=== PATIENT | female | born 1940 | race Caucasian/White ===

== ENCOUNTER → 2018-08-03 09:06 | Outpatient (CLI) | payer MEDICARE, SELFPAY ==
--- NOTE | 2018-08-03 09:14 | RAD_ITS ---
STUDY: X-RAY - LEFT SHOULDER REASON FOR EXAM: Female, 78 years old. Pain. TECHNIQUE: 2 view(s) of the shoulder. COMPARISON: None. FINDINGS: Normal glenohumeral articulation. Normal acromioclavicular joint. Normal acromion. There is demineralization of the humerus and visualized osseous structures. The soft tissue structures are unremarkable. Normal visualized pulmonary apex. RAD/Shoulder min 2 Views IMPRESSION: No acute fracture or dislocation. Electronically Signed: Moy Obregon DO at 19:17 EST Tel [phone], Service support ,
--- NOTE | 2018-08-03 09:15 | RAD_ITS ---
STUDY: X-RAY - RIGHT SHOULDER REASON FOR EXAM: Female, 78 years old. Pain. TECHNIQUE: 2 view(s) of the shoulder. COMPARISON: None. FINDINGS: Normal glenohumeral articulation. Normal acromioclavicular joint. Normal acromion. There is no acute fracture, dislocation or destructive osseous pathology. There is demineralization of the humerus and visualized osseous structures. The soft tissue structures are unremarkable. Normal visualized pulmonary apex. RAD/Shoulder min 2 Views IMPRESSION: No acute abnormality of the right shoulder. Electronically Signed: Moy Obregon DO at 19:16 EST Tel [phone], Service support ,
== END ==
PROVIDERS: Family Provider Family Medicine; PCP Family Medicine; Referring Provider Anesthesiology Pain Medicine; Visit Provider Anesthesiology Pain Medicine
DX: M25.511 Pain in right shoulder (principal); M25.512 Pain in left shoulder
CPT/HCPCS: 73030

== ENCOUNTER → 2022-08-26 | Outpatient (CLI) | payer MEDICARE, SELFPAY ==
--- NOTE | 2022-08-26 07:37 | CT_ITS ---
STUDY: CT CHEST, ABDOMEN T PELVIS WITH CONTRAST REASON FOR EXAM: Female, 82 years old. LYMPHADENOPATHY; IV CONTRAST ONLY. Enlarged right subclavian lymph nodes. RADIATION DOSAGE (If Supplied By Facility): CTDIvol = ( 15.13 ) mGy, DLP = ( 977.82 ) mGycm TECHNIQUE: Transaxial imaging was performed following intravenous administration of IV 100mL Isovue-300. Multiplanar coronal and sagittal images were reformatted. Individualized dose optimization techniques were used for this CT. COMPARISON: No relevant priors. FINDINGS: CHEST There are multiple enlarged bilateral axillary lymph nodes. There is also evidence of a subacute clavicular lymphadenopathy more prominent on the right side. Mild increased markings are seen at the lung bases show some atelectasis and/or scarring. There is no demonstrated pleural abnormality. There are calcifications of the coronary arteries. Normal mediastinum. Normal hilar regions. Normal unenhanced pulmonary arteries. There is atherosclerotic calcification of the aortic arch with tortuosity and elongation of the aortic arch and descending thoracic aorta. There are multi-level degenerative changes of the thoracic spine. There is no demonstrated abnormality of the visualized upper abdomen. ABDOMEN The visualized lung bases are unremarkable. The visualized portions of the heart are within normal limits. Normal liver. Normal gallbladder and extrahepatic biliary system. Normal spleen. Normal pancreas. Normal bilateral adrenal glands. Normal right kidney. Normal left kidney. Normal visualized stomach. Normal small intestine. There are scattered colonic diverticula consistent with diverticulosis. The patient is status post appendectomy. There is diffuse atherosclerotic calcification of the abdominal aorta, without a demonstrated aneurysm. Normal inferior vena cava. There is retroperitoneal lymphadenopathy with enlarged nodes greater than 10-15mm in the short axis. Normal abdominal wall. This space narrowing in the subchondral sclerosis at the L4-L5 level minimal anterior listhesis of L4 on L5. PELVIS Normal urinary bladder. The patient is status post hysterectomy. There is no pelvic fluid. There is no pelvic lymphadenopathy or mass lesion. There is diffuse atherosclerotic calcification of the pelvic arteries. CT/CT Chest, Abd, Pel w/Contrast IMPRESSION: Enlarged bilateral subclavicular and axillary lymph nodes. Enlarged retroperitoneal lymphadenopathy. Electronically Signed: Michael Tuttle MD at 14:44 EDT ,
== END | disposition home or self-care (01) ==
PROVIDERS: PCP Family Medicine; Visit Provider Internal Medicine Hematology & Oncology
DX: R59.9 Enlarged lymph nodes, unspecified (principal)
CPT/HCPCS: 71260; 74177; Q9967

== ENCOUNTER → 2023-02-26 | Outpatient (CLI) | payer MEDICARE, SELFPAY ==
--- NOTE | 2023-02-26 12:15 | EKG12_ITS ---
Test Reason : PRE OP Blood Pressure : / mmHG Vent. Rate : 070 BPM Atrial Rate : 061 BPM P-R Int : 000 ms QRS Dur : 074 ms QT Int : 374 ms P-R-T Axes : 000 028 056 degrees QTc Int : 403 ms Normal sinus rhythm Abnormal ECG Confirmed by KATERIN RAMOS, UZIEL ([id number]), assistant editor PEDRO WAGNER ([id number]) on 03/01/2023 1:54:34 PM Referred By: Hortencia Mclaughlin Confirmed By:UZIEL CONKLIN MD
== END | disposition home or self-care (01) ==
PROVIDERS: PCP Family Medicine; Referring Provider Internal Medicine Hematology & Oncology; Visit Provider Internal Medicine Hematology & Oncology
DX: C91.10 Chronic lymphocytic leukemia of B-cell type not having achieved remission (principal); D64.9 Anemia, unspecified; Z79.899 Other long term (current) drug therapy
CPT/HCPCS: 93005

== ENCOUNTER 2023-10-05 08:16 | Emergency (ER) | payer MEDICARE, SELFPAY ==
[2023-10-05 08:17] VITALS: BP 179/128; PULSE 83; RESP 16; TEMP 36.7; O2SAT 100; BMI 23.8
--- NOTE | 2023-10-05 08:39 | ED.VIS.BACK ---
HPI History of Present Illness Chief Complaint: Back [facility] Medical History Anemia CLL (chronic lymphocytic leukemia) Encounter for education Hematuria High blood pressure Hyperlipidemia Hypothyroidism Low back pain with right-sided sciatica Mitral valve prolapse Muscle cramping Need for hepatitis C screening test Osteoporosis Psoriasis Skin lesion of face Skin lesion of neck Stress incontinence Supraclavicular lymphadenopathy Supraclavicular mass URI with cough and congestion Urinary frequency Varicose veins of legs Vertigo Home Medications ascorbic acid (vitamin C) 100 mg tablet 100 mg PO DAILY 08/14/22 [History Last Taken Unknown] aspirin 81 mg tablet,delayed release 81 mg PO DAILY 08/14/22 [History Last Taken Unknown] calcium carbonate 600 mg PO DAILY 08/14/22 [History Last Taken Unknown] cholecalciferol (vitamin D3) 10 mcg (400 unit) capsule 10 mcg PO DAILY 08/14/22 [History Last Taken Unknown] chromium picolinate 200 mcg tablet 200 mcg PO DAILY 08/14/22 [History Last Taken Unknown] losartan 50 mg tablet 50 mg PO BID 08/14/22 [History Last Taken Unknown] lutein 20 mg capsule 20 mg PO DAILY 08/14/22 [History Last Taken Unknown] magnesium carbonate 08/18/22 [History Last Taken Unknown] polyethylene glycol 3350 17 gram/dose oral powder (Miralax) 4 g PO DAILY 02/23/23 [History Last Taken Unknown] psyllium husk 3.4 gram/5.4 gram oral powder (Metamucil) 1 tbsp PO DAILY 02/23/23 [History Last Taken Unknown] cholecalciferol (vit D3) 1,000 unit-vitamin K2 (MK4) 100 mcg tablet 1 tab PO DAILY 03/01/23 [History Last Taken Unknown] mecobalamin (vitamin B12) 1,000 mcg lozenges 1,000 mcg PO Q OTHER DAY 03/01/23 [History Last Taken Unknown] omega 2-ejm-bpj-fish oil 300 mg-1,000 mg capsule (Fish Oil) 1 cap PO DAILY 03/01/23 [History Last Taken Unknown] vitamin E succinate 268 mg (400 unit) tablet 268 mg PO Q OTHER DAY 03/01/23 [History Last Taken Unknown] zinc amino acid chelate 50 mg tablet 50 mg PO DAILY 03/01/23 [History Last Taken Unknown] pantoprazole 40 mg tablet,delayed release 80 mg PO DAILY 05/10/23 [History Last Taken Unknown] levothyroxine 88 mcg capsule 88 mcg PO DAILY 06/01/23 [History Last Taken Unknown] Disability Placard #1 ea 09/07/23 [Rx Last Taken Unknown] oxycodone 5 mg capsule 5 mg PO Q6H PRN pain 3 days #12 caps 10/05/23 [Rx Last Taken Unknown] Allergy/AdvReac Type Severity Reaction Status Date / Time No Known Allergies Allergy Verified 09/07/23 14:29 Family History Brother CAD (coronary artery disease) Cancer Hyperlipemia Mother Cancer Leukemia Sister Cancer Sarcoma Surgical History H/O umbilical hernia repair History of tonsillectomy S/P abdominal hysterectomy S/P appendectomy Social History Smoking Status: Never smoker alcohol intake: never substance use type: does not use EXAM Physical Exam Const Vital Signs: 10/05/23 08:17 10/05/23 09:45 Temperature 98.1 F Temperature Source Temporal Pulse Rate 83 80 Respiratory Rate 16 16 Blood Pressure 179/128 H 170/73 H Blood Pressure Mean 145 105 Pulse Ox 100 100 Oxygen Delivery Method Room Air Room Air [facility] MDM MDM Narrative Medical decision making narrative: HISTORY OF PRESENT ILLNESS: 83-year-old female presents with back pain. This started 1 month ago after chiropractor adjustment. States she is a known fracture. This pain has gotten worse. Notes she initially was prescribed tramadol but cannot tolerate this secondary nausea vomiting. She is then prescribed hydrocodone medicine and ran out. Note she has a appointment in 2 days with a spine surgeon as well as an MRI scheduled. Patient denies any saddle anesthesia, urinary retention, bowel or bladder incontinence, lower extremity weakness, fever or IV drug use, no recent spinal manipulation or surgery, no recent urinary catheterization. REVIEW OF SYSTEMS: Pertinent positives: Back pain, constipation Pertinent negatives: Followed by incontinence, focal weakness PHYSICAL EXAM: Nursing triage notes reviewed, Vital signs reviewed Constitutional: please see mdm HENT: MMM Eyes: Pupils equal round and reactive to light, Extraocular muscles intact Neck: No stridor, no JVD, full neck ROM Lungs: Clear to auscultation, No wheezing or rales. No increased work of breathing, no conversational dyspnea, no accessory muscle use, no nasal flaring. No respiratory distress noted Heart: Regular rate and rhythm, No murmurs, No rubs and No gallops, 2+ distal pulses (radial, femoral, posterior tibial) in all extremities Abdomen: Soft, there is no tenderness, rigidity, rebound or guarding, no obvious peritoneal signs, no palpable pulsatile abdominal masses, no auscultated abdominal bruit : No CVAT Extremities: No edema Neuro: Intact sensation L1-S1 dermatomal distributions. Intact 5/5 strength in hip flexion (T12-L3). Knee extension (L2-L4). Ankle dorsiflexion (L4-L5). Ankle plantar flexion (S1). Great toe extension (L5). 2+ patellar and Achilles DTRs. Skin: No rash or lesions noted MEDICAL DECISION MAKING: Chief Complaint: Back pain External records reviewed: No recent advanced imaging of the thoracic and lumbar spine and [facility] records however in clinic think I found a CT scan of the abdomen pelvis as well as lumbar spine from 10/04/2023 which showed the following FINDINGS: There is some compression deformity of the superior L3 endplate, a stable finding since the previous exam. There is interval but age indeterminate mild superior L4 endplate compression. Degenerative changes are noted in the spine. No definite acute osseous abnormality seen. Small areas of scarring are visible at the lung bases. A subcentimeter cyst is noted in the spleen. The liver and spleen are otherwise unremarkable. The adrenal glands and pancreas appear normal. No focal kidney abnormality is evident. No adenopathy, free air or free fluid is evident. The urinary bladder is unremarkable. No GI tract abnormality seen. No additional contributory abnormality. IMPRESSION: No acute abnormality identified. Interval but age-indeterminate loss of height at the superior L4 endplate. Factors affecting care: Back pain, hyperlipidemia, CLL, lumbar spine fracture Social determinants of health: Elderly History obtained from others: EMS Consults: none at this time MDM Narrative: Patient was hemodynamically stable, afebrile and nontoxic-appearing. There is TTP over the lower lumbar spine. There are no focal neurologic deficits including numbness weakness or loss sensation or strength in the lower extremities. I considered the following differential diagnosis: Lumbar radiculopathy, fracture dislocation, space-occupying lesion of the spine (epidural abscess, conus medullaris) Imaging reviewed from yesterday. No indication to repeat imaging today Gave symptomatic treatment in the form of oral Percocet, IM Decadron, ibuprofen and lidocaine patch Gave instructions to take a bowel regimen to improve opiate related constipation and gave Percocet prescription. She has close follow-up with spine surgery in 2 days as well as an MRI scheduled in 2 days. I do not believe the patient has an acute spinal emergency at this time she is ambulatory she has no focal neurologic findings and is appropriate for discharge home. The patient and/or family, caregivers express understanding. The patient and/or family, caregivers agrees with the plan. Shared decision making: I will have a discussion with the patient and or visitors regarding risk/benefits of further testing or admission. They will be made aware of of the risk/benefits inherent in this decision they will be given the opportunity to voice understanding. Total critical care time today provided was at least 0 minutes. This excludes separately billable procedures. Critical care time (if documented) is secondary to the patient having high probability of clinically significant/life threatening deterioration in the patient's condition which required my urgent intervention. Impression: 1. L3 endplate fracture 2. L4 endplate fracture 3. Lumbar radiculopathy Dispo: discharge This note was generated with [employer] dictation software. It may contain incorrect words, spelling, and punctuation that were not noted in review of the chart prior to signing. Discharge Plan Triage Chief Complaint: Back ED Provider: Lito Mendenhall Dx/Rx/DC Orders Clinical Impression: Closed compression fracture of lumbar vertebra Instructions: ED Fracture, Vertebral Compression Prescriptions: New oxycodone 5 mg capsule 5 mg PO Q6H PRN (Reason: pain) 3 Days Qty: 12 0RF No Action ascorbic acid (vitamin C) 100 mg tablet 100 mg PO DAILY aspirin 81 mg tablet,delayed release (DR/EC) 81 mg PO DAILY calcium carbonate 600 mg calcium (1,500 mg) tablet 600 mg PO DAILY cholecalciferol (vitamin D3) 10 mcg (400 unit) capsule 10 mcg PO DAILY chromium picolinate 200 mcg tablet 200 mcg PO DAILY losartan 50 mg tablet 50 mg PO BID lutein 20 mg capsule 20 mg PO DAILY Rx Instructions: give with meal/snack magnesium carbonate levothyroxine 88 mcg capsule 88 mcg PO DAILY Patient Comments: 2 tabs on wednesday and wednesday Metamucil 3.4 gram/5.4 gram powder 1 tbsp PO DAILY Rx Instructions: mix into at least 8 oz of water or juice before administering polyethylene glycol 3350 [Miralax] 17 gram/dose powder 4 g PO DAILY vitamin E succinate 268 mg (400 unit) tablet 268 mg PO Q OTHER DAY mecobalamin (vitamin B12) 1,000 mcg lozenge 1,000 mcg PO Q OTHER DAY Rx Instructions: allow to dissolve in mouth OR may chew lightly before swallowing zinc amino acid chelate 50 mg tablet 50 mg PO DAILY omega 8-yfo-leq-fish oil [Fish Oil] 300-1,000 mg capsule 1 cap PO DAILY vitamin D3-vitamin K2 (MK4) 1,000-100 unit-mcg tablet 1 tab PO DAILY Rx Instructions: D3 2,000 IU + K2 100mcg pantoprazole 40 mg tablet,delayed release (DR/EC) 80 mg PO DAILY (DME) Disability Placard See Rx Instructions .Route .MEDSUPPLY Qty: 1 0RF Rx Instructions: As directed Primary Care Provider: Lisette Apple Referrals: Brien Flores DO [Med Staff - Active Staff] - Lisette Apple DO [Primary Care Provider] - Activity Restrictions/Additional Instructions: Thank you for trusting us with your care today! Given diagnosed with a lumbar compression fracture. Please go to local pharmacy or drugstore and obtain Salonpas lidocaine patch and apply these as directed. Please take Tylenol (2 pills, 650 mg), ibuprofen (2 pills, 400 mg) every 6 hours as needed for pain and fever control. If the above regimen does not control your pain. Please take oxycodone as needed every 6 hours. Narcotic pain medicine such as oxycodone can cause constipation. You should begin a bowel regiment which should consist of fiber 1 cereal, MiraLAX, Colace, senna. Please use this regimen daily to achieve regular bowel movements. Please return to the emergency department if your symptoms change or worsen. Specifically if develop bowel or bladder incontinence, urinary tension, loss of movement or sensation in your legs, decree sensation around your private area. Please follow with your primary care physician as well as spinal surgeon for further outpatient evaluation and management. Disposition Disposition: Home, Self Care
[2023-10-05] MEDS: dexAMETHasone 10 MG/ML Vial 6 MG IM (09:32)
[2023-10-05] MEDS: Ibuprofen 200 MG Tablet 400 MG PO (09:32)
[2023-10-05] MEDS: Oxycodone/Apap 5/325 Tablet PO (09:32)
[2023-10-05] MEDS: Lidocaine 5% Patch 1 PATCH TOPICAL (09:32)
[2023-10-05 09:45] VITALS: BP 170/73; PULSE 80; RESP 16; O2SAT 100
[2023-10-05 11:01] VITALS: BP 119/66
== END 2023-10-05 11:04 | disposition home or self-care (01) ==
PROVIDERS: Emergency Provider Emergency Medicine; PCP Family Medicine; Visit Provider Emergency Medicine
DX: M48.56XA Collapsed vertebra, not elsewhere classified, lumbar region, initial encounter for fracture (principal); M54.16 Radiculopathy, lumbar region; E78.5 Hyperlipidemia, unspecified; I10 Essential (primary) hypertension; E03.9 Hypothyroidism, unspecified; Z79.82 Long term (current) use of aspirin; Z79.890 Hormone replacement therapy; Z79.899 Other long term (current) drug therapy
CPT/HCPCS: 96372; 99283

== ENCOUNTER 2023-10-21 05:47 | Day surgery (SDC) | payer MEDICARE, SELFPAY ==
[2023-10-21] VITALS (7 sets, daily range): BP systolic 93–159; BP diastolic 51–65; PULSE 69–77; RESP 16–18; TEMP 36.4–37.3; O2SAT 92–100; BMI 23.0
--- NOTE | 2023-10-21 | IMM_PTH ---
PATIENT: BOB MCKENNA LOC: [facility] U#:[id number] AGE/SX: 83/F ROOM: RE10/21/[address]: Dr. Brien Flores DO : 1940 BED: DIS: 10/21/2023 SPEC #: [id number] RECD: 10/26/23 11:37 STATUS: SUE REQ #: [id number] SARAH: 10/21/23 00:[address]: Brien Flores DEPT: IMMUNOHISTOCHEMISTRY RECD BY: Jaime Jones ENTERED: 10/26/23 11:39 SP TYPE: IMMUNO OTHR DR: Dr. Lisette Apple DO Tissues: Vertebra, NOS Procedures: BCL-2 (add) BCL-6 (add) CD10 (add) CD138 (add) CD15 (add) CD20 (add) CD23 (add) CD3 (add) CD30 (add) CD43 (add) CD45 (add) CD5 (add) CD79A (add) CYCLIN (add) KAPPA (add) KI-67 (add) LAMBDA (add) MPO (add) P53 (add) MUM1 (add) C-MYC (add) Pankeratin (initial) Pankeratin (add) PHYSICIAN & INSTITUTION [place] [id number] SPECIMEN INFORMATION: Tissue Source: A- L3 vertebral body bone, B- L2 vertebral body bone Clinical Info: Wedge compression fracture of second and third lumbar vertebra, spinal stenosis, radiculopathy, lumbar region Specimen Number: [id number] A&B CPT code: 13526,58720x58 METHODOLOGY: Deparaffinized sections of prefer/formalin-fixed tissue or PAP/DQ stained slides are incubated with monoclonal/polyclonal antibodies/oligonucleotide probes. Localization is made via biotin free immunoperoxidase method. Appropriate controls are performed and reacted as expected. Results on target cell population are indicated in the following table: RESULTS: ANTIBODY / CLONE RESULT Block A AE1-3 (AE1/AE3/PCK26) negative CD3 (PS1) positive CD5 (SP10) positive CD20 (L26) positive CD43 (L60) positive CD45 (RP2/18) positive CD79a (11E3) positive CD138 (B-A38) negative [place] (polyclonal) negative Lambda (polyclonal) negative CD10 (56C6) negative CD15 (MMA) negative CD23 (1B12) negative CD30 ([place]-H2) negative BCL-2 (bcl-2/100/D5) positive BCL-6 (KO896A/A8) negative [place] D1/BCL-1 (SP4) negative MUM1 (MRQ-43) negative C-MYC (Y69) negative MPO (polyclonal) positive P53 (DO-7) positive, wild type Ki-67 (30-9) positive, moderate Block B AE1-3 (AE1/AE3/PCK26) positive CD3 (PS1) positive CD5 (SP10) positive CD20 (L26) positive CD43 (L60) positive CD45 (RP2/18) positive CD79a (11E3) positive CD138 (B-A38) negative [place] (polyclonal) negative Lambda (polyclonal) negative CD10 (56C6) negative CD15 (MMA) negative CD23 (1B12) negative CD30 ([place]-H2) negative BCL-2 (bcl-2/100/D5) positive BCL-6 (NI125R/A8) negative [place] D1/BCL-1 (SP4) negative MUM1 (MRQ-43) negative C-MYC (Y69) negative MPO (polyclonal) positive P53 (DO-7) positive, intermediate Ki-67 (30-9) positive, high These tests were developed and their performance characteristics determined by [facility]. They may not have been cleared or approved by the U.S. Food and Drug Administration. The FDA has determined that such clearance or approval is not necessary. The above immunohistochemical/dualISH markers are ordered and reviewed by the Pathologist. INTERPRETATION: A. L3 vertebral body bone: Polytypic lymphoid aggregates present. B. L2 vertebral body bone: Polytypic lymphoid aggregates present. AM/ 10/27/2023
--- NOTE | 2023-10-21 06:30 | RAD_ITS ---
INDICATION: FX L2 L3 EXAMINATION/TECHNIQUE: X-RAY - IR Kyphoplasty Lumbar 1 Body Unilat / Bilat Ea Additional With Image Guidance COMPARISON: None. FINDINGS: Intraoperative imaging provided for vertebroplasty of the L2 and L3 vertebrae. RAD/Lumbar Spine 2 or 3 Views IMPRESSION: Imaging provided for kyphoplasty of the L2 and L3 vertebrae. Electronically Signed: Michael Tuttle MD at 13:06 EDT ,
[2023-10-21] MEDS: Lactated Ringers 1,000 ML 15 ML IV (06:44)
--- NOTE | 2023-10-21 07:05 | PCM.OPRPT ---
Report of Operation Date of Procedure: 10/21/23 Pre-Operative Diagnosis: 1. L2 compression fracture 2. L3 compression fracture Post-Operative Diagnosis: 1. L2 compression fracture 2. L3 compression fracture Surgery/Procedure Performed:: 1. L2 kyphoplasty 2. L3 kyphoplasty 3. Vertebral bone biopsy Description of Surgical Findings:: The patient is a 83-year-old female with intractable back pain. Image studies confirm the above diagnosis. They have failed to respond to conservative treatment and have opted for operative intervention understanding the risk to include but not limited to infection, bleeding, damage to nerves arteries and veins, possibility of spinal fluid leak, paralysis, continued pain, need for further surgery, pulmonary embolism, heart attack, risk of stroke or The patient was identified in the preoperative holding area. There they received preoperative IV antibiotics and were then transferred to the operative suite. Once in the operative suite after the appropriate amount of sedation was given by anesthesia, the patient was transferred to the prone position on the [facility] operating table. All bony prominences were padded accordingly. The back was prepped and draped in the usual sterile fashion. Using biplanar fluoroscopic guidance the L2 and L3 vertebral body were brought into alignment for placement of the trocar. A transpedicular approach was selected to optimize the view of the pedicles. A small skin eliezer was made and a trocar was inserted and advanced using a cannula with the tip of the needle in the upper outer quadrant of the pedicles of L2 and L3 bilaterally. At no time was there violation of the medial cortex of the pedicle. The position of the trocar was intermittently checked under biplanar fluoroscopy to confirm placement at all times. Once the tip of the trocar had advanced beyond the posterior margin of the vertebral body further advancement was conducted in the lateral view. The trocar was advanced until the tip was at the junction of the anterior one third and middle one third of the vertebral body. The obturator was then removed. A biopsy was then taken of both L2 and L3 vertebral body bone. Then a small drill was used to drill a guide path for placement of the balloon system. Drilling was performed in a continuous motion under biplanar fluoroscopy. Under lateral fluoroscopic image the drilling was continued until the tip of the drill reached the anterior one third of the vertebral body. The drill was removed and the balloon system was inserted until the radiologic markers were located at the midpoint of the vertebral body of L2 and L3. Balloon inflation was then performed under active fluoroscopy in the lateral position with inflation pressures never exceeding 300 PSI. Inflation continued until a void of 5 to 7 cc was created. The balloon was collapsed and removed. PMMA cement was then mixed and delivered using a cannula. Cement injection was performed under active fluoroscopy with precement lateral x-ray used as a comparison. Cement injection continued until the cement had reached the posterior one third of the vertebral body and then injection was stopped. The cannulae were removed and replaced by the original obturator. Approximately 3 cc of cement was used per level. No extravasation of cement or leakage of cement posteriorly was noted. In the AP view good cement spread was noted across both sides of the vertebral body. The trocars were then removed under active fluoroscopy ensuring there was no retrograde spread of the cement. Pressure was held over the incision sites until active bleeding was stopped. The skin was then closed with Steri-Strips. Sterile dressings were applied. Sponge instrument and needle counts were correct at the end of the case. The patient was taken to the PACU without incident. Surgeon: Brien Flores Type of Anesthesia: Local and MAC Specimen's removed: Vertebral body bone Estimated Blood Loss (mL): 5 cc Fluids Replaced: 700 cc Grafts/Implants Used: Gretchen Complications None Admit VTE Documentation VTE Present on Admission: No
--- NOTE | 2023-10-21 07:08 | PCM.PN.ORT ---
Subjective Subjective Seen and examined postop. Lying in bed resting comfortably. Pain controlled. No complaints Objective Data Objective Data Vital Signs: Vital Signs Temp Pulse Resp BP Pulse Ox O2 Del Method 98.1 F 69 18 150/60 H 100 Room Air 10/21/23 06:28 10/21/23 06:28 10/21/23 06:28 10/21/23 06:28 10/21/23 06:28 10/21/23 06:28 Oxygen Delivery Method Room Air Weight: 130 lb 1.164 oz Body Mass Index (BMI) 23.0 Physical Exam Const alert, oriented x3 and no apparent distress General Appearance: cooperative, comfortable and well kempt HEENT normocephalic and head/scalp atraumatic Eyes EOMs intact bilaterally and conjunctivae normal Neck full ROM General: normal visual inspection Chest inspection of chest normal and palpation of chest normal Resp normal respiratory effort and normal air movement Cardio regular rate, regular rhythm and peripheral pulses 2+ throughout GI soft to palpation, non-tender and non-distended Back/Spine Back/Spine Narrative: Dressings clean dry and intact Cervical Spine: cervical ROM normal Thoracic Spine / Upper Back: normal to inspection Lumbar Spine / Lower Back: normal to inspection Extremity normal to inspection, full ROM, normal capillary refill, no clubbing, cyanosis or edema and no calf tenderness Skin no rashes or lesions noted General Skin Exam: no breakdown Neuro oriented x3, CN's II-XII intact bilaterally, moves all extremities, no focal motor deficits, no sensory deficits noted and deep tendon reflexes 2+ bilaterally Motor Exam: muscle tone normal throughout Assessment & Plan Assessment/Plan (1) Compression fracture: PLAN: Okay to discharge home See discharge instructions Follow-up with Dr. Flores as scheduled
--- NOTE | 2023-10-21 07:30 | BON_PTH ---
PATIENT: BOB MCKENNA LOC: [facility] [place] U#:[id number] AGE/SX: 83/F ROOM: RE10/21/[address]: Dr. Brien Flores DO : 1940 BED: DIS: 10/21/2023 SPEC #: [id number] RECD: 10/21/23 09:18 STATUS: SUE REAki #: [id number] SARAH: 10/21/23 07:[address]: Brien Flores DEPT: SURGICAL PATHOLOGY RECD BY: Jaime Chaparro ENTERED: 10/21/23 12:25 SP TYPE: Bone OTHR DR: Dr. Lisette Apple DO Tissues: A - Vertebra, NOS B - Vertebra, NOS Procedures: Decalcification bone/plaque Surgery Specimen Level IV HEADER OPERATION: Lumbar 2, lumbar 2 kyphoplasty PRE-OP DIAGNOSIS: Wedge compression fracture of second and third lumbar vertebra, spinal stenosis, radiculopathy, lumbar region TISSUE SUBMITTED: A- 1-L3 vertebral body bone, B- 2-L2 vertebral body bone MICROSCOPIC DIAGNOSIS A. L3 vertebral body, bone biopsy: Polytypic lymphoid aggregates present. Changes consistent with fracture site. See comment. B. L2 vertebral body, bone biopsy: Polytypic lymphoid aggregates present. Changes consistent with fracture site. See comment. CAROL ANN/ 10/25/2023 COMMENT A&B. Immunohistochemistry ([id number]) supports the above diagnosis. Clinical correlation is suggested. MICROSCOPIC DESCRIPTION Slides are reviewed. GROSS DESCRIPTION A. Received in fixative is one container labeled with the patient's name and designated L3 vertebral body bone. The specimen consists of an elongated fragment of bone measuring 0.9cm in length and 0.2cm in diameter. The entire specimen is submitted in one cassette after decalcification. B. Received in fixative is one container labeled with the patient's name and designated L2 vertebral body bone. The specimen consists of multiple fragments of blood clots mixed with fragments of bone measuring in aggregate 2.0 x 1.5 x 0.1cm. The entire specimen is submitted in one cassette after decalcification. HARDY/ 10/21/2023 TC:? CPT:79274n1,40546u1
[2023-10-21] MEDS: Cefazolin 2 GM in 0.9% Normal Saline (100mL Bag) 100 ML IV (07:31)
[2023-10-21] MEDS: Lidocaine 1% (30 ml sdv) 30 ML Vial ×2 (08:35)
--- NOTE | 2023-10-21 10:00 | SUR.PHASEII ---
PATIENT WAS NAUSEOUS AND VOMITED. ZOFRAN 4 MG IV GIVEN.
[2023-10-21] MEDS: oxyCODONE 5 MG Tablet PO (10:28)
--- NOTE | 2023-10-21 11:10 | SUR.PHASEII ---
PATIENT DENIES PAIN IN HER INCISION/BACK AREA CURRENTLY. SHE IS COMPLAINING OF PAIN ON BOTH SIDES OF HER ABDOMEN. MORE ON THE LEFT. PATIENT HAS HAD NUMEROUS VISITS TO THE ER AND HAS HAD A CAT SCAN FOR THE THIS. SHE HAS A HISTORY OF CONSTIPATION ISSUES AND HASN'T HAD A COLONOSCOPY FOR 14 YEARS. I RECOMMENDED FOR HER TO CALL DR. SUN WHOM SHE HAD HER COLONOSCOPY WITH PRIOR FOR FURTHER INVESTIGATION OF THIS ISSUE IF NOT RELATED TO HER BACK.
== END 2023-10-21 12:03 | disposition home or self-care (01) ==
LOC: SDC 05:47 → AC 05:47
PROVIDERS: PCP Family Medicine; Referring Provider Orthopaedic Surgery; Visit Provider Orthopaedic Surgery
PROC: (CPT 22514; principal; 2023-10-21 07:15)
DX: S22.020A Wedge compression fracture of second thoracic vertebra, initial encounter for closed fracture (principal); S32.030A Wedge compression fracture of third lumbar vertebra, initial encounter for closed fracture; C91.10 Chronic lymphocytic leukemia of B-cell type not having achieved remission; D64.9 Anemia, unspecified; I10 Essential (primary) hypertension; E03.9 Hypothyroidism, unspecified; E78.5 Hyperlipidemia, unspecified; M54.41 Lumbago with sciatica, right side; Z87.19 Personal history of other diseases of the digestive system; Z90.710 Acquired absence of both cervix and uterus; Z90.49 Acquired absence of other specified parts of digestive tract; M81.0 Age-related osteoporosis without current pathological fracture; M48.061 Spinal stenosis, lumbar region without neurogenic claudication; M46.96 Unspecified inflammatory spondylopathy, lumbar region; M85.88 Other specified disorders of bone density and structure, other site; M54.16 Radiculopathy, lumbar region; M51.36 Other intervertebral disc degeneration, lumbar region
CPT/HCPCS: 22514; 22515; 22511; J7120; 72100; 76000; 88305; 88311; 88341; 88342; J2405

== ENCOUNTER → 2024-01-18 | Outpatient (CLI) | payer MEDICARE, SELFPAY ==
--- NOTE | 2024-01-18 17:42 | RAD_ITS ---
STUDY: X-RAY - CERVICAL SPINE REASON FOR EXAM: Female, 83 years old. PAIN TECHNIQUE: 3 view(s) of the cervical spine were obtained. COMPARISON: None FINDINGS: Normal anterior atlantoaxial articulation. Normal odontoid process. Normal cervical lordosis. There is multi-level endplate spondylosis. There is multi-level degenerative disc disease with multilevel disc space narrowing. Normal visualized intervertebral neuroforamina. The soft tissue structures are unremarkable. RAD/Cerv Spine 2 or 3 Views IMPRESSION: Moderate degenerative disc disease of the lower cervical spine. Electronically Signed: Jon Bell MD at 12:18 EDT ,
== END | disposition home or self-care (01) ==
LOC: RAD 17:44
PROVIDERS: PCP Family Medicine; Referring Provider Anesthesiology Pain Medicine; Visit Provider Anesthesiology Pain Medicine
DX: M47.812 Spondylosis without myelopathy or radiculopathy, cervical region (principal)
CPT/HCPCS: 72040

== ENCOUNTER 2024-03-27 20:21 | Emergency (ER) | payer MEDICARE, SELFPAY ==
[2024-03-27 20:23] VITALS: BP 187/87; PULSE 82; RESP 16; TEMP 36.8; O2SAT 99; BMI 23.3
--- NOTE | 2024-03-27 20:54 | CT_ITS ---
EXAM: CT ANGIOGRAPHY CHEST WITHOUT AND WITH INTRAVENOUS CONTRAST CLINICAL INDICATION: PE/aortic dissection -- Severe chest pain radiating through to back, eleva TECHNIQUE: Helically acquired angiography images were obtained of the chest without and with intravenous contrast. This CT exam was performed using one or more of the following dose reduction techniques: automated exposure control, adjustment of the mA and/or kV according to patient size, and/or use of iterative reconstruction technique. MIP reconstructed images were created and reviewed. CONTRAST: IV 100mL [id number] COMPARISON: CT chest, abdomen, pelvis dated 08/26/2022. FINDINGS: PULMONARY ARTERIES: No significant abnormality. Normal in caliber. No evidence of pulmonary embolism. AORTA: Atherosclerosis of the aorta without aneurysm or dissection. GREAT VESSELS OF AORTIC ARCH: No significant abnormality. Normal in caliber. No evidence of dissection. LUNGS AND PLEURAL SPACES: Nonconsolidative pulmonary opacity in the left lower lobe is likely atelectasis or perhaps scarring. No definite pneumonia. Scarring at the right lung apex. No mass. No pleural effusion or thickening. HEART: No significant abnormality. Heart size is normal. No pericardial effusion. No significant coronary artery calcifications. MEDIASTINUM: Enlarged mediastinal lymphadenopathy. Esophagus is unremarkable. No hiatal hernia. THYROID: No significant abnormality. No thyroid lesions. BONES/JOINTS: Multilevel lumbar vertebral augmentation for the treatment of underlying compression fractures. Degenerative changes throughout the visualized axial and appendicular skeletal structures. Scoliotic curvature of the spine. No suspicious lytic or blastic abnormality. LYMPH NODES: Enlarged axillary lymphadenopathy. Conglomerate enlarged retroperitoneal lymphadenopathy. SPLEEN: Splenomegaly. CT/CTA Chest W/WO Contrast IMPRESSION: 1. No evidence of pulmonary artery embolus. No aortic dissection or aneurysm. 2. Nonconsolidative pulmonary opacity in the left lower lobe is likely atelectasis or perhaps scarring. No definite pneumonia. 3. Multilevel lumbar vertebral augmentation for the treatment of underlying compression fractures. Degenerative changes and scoliotic curvature. 4. Extensive lymphadenopathy and splenomegaly. Consider metastatic disease, systemic infection, or lymphoma. Findings are similar to the prior CT examination. Electronically Signed: Franko Rincon DO at 22:05 EDT ,
--- NOTE | 2024-03-27 20:55 | EKG12_ITS ---
Test Reason : CP Blood Pressure : / mmHG Vent. Rate : 077 BPM Atrial Rate : 077 BPM P-R Int : 164 ms QRS Dur : 084 ms QT Int : 348 ms P-R-T Axes : 075 037 057 degrees QTc Int : 393 ms Normal sinus rhythm Normal ECG Confirmed by UZIEL CONKLIN MD ([id number]), marketing editor PEDRO WAGNER ([id number]) on 03/29/2024 10:02:38 AM Referred By: Confirmed By:UZIEL CONKLIN MD
[2024-03-27 21:12] LABS: Absolute Lymphocyte Count 3.28 X10^3/uL (0.83-4.51); Absolute Neutrophil Count 2.1 X10^3/uL (2.0-7.7); Basophil# 0.04 X10^3/uL; Eosinophil# 0.03 X10^3/uL; Hematocrit 35.8 % (37-47); Hemoglobin 11.8 g/dL (12.0-15.0); Lymphocyte # 3.28 X10^3/ul (0.83-4.51); Mean Corpuscular Hgb 29.5 pg (27.0-32.0); Mean Corpuscular Volume 89.5 fL (81-99); Mean Platelet Vol. 9.9 fl (6.2-12.0); Monocyte# 1.15 X10^3/uL; NRBC Flagged by Analyzer 0 % (0-5); Neutrophil # 2.11 X10^3/uL (2.7-7.7); POSITIVE MORPHOLOGY YES; Platelet Count 192 K/mm3 (150-450); RBC Distribution Width CV 13.3 % (11.6-14.6); RBC Distribution Width SD 43.9 fl (35.1-43.9); White Blood Count 6.7 K/mm3 (4.4-11.0)
[2024-03-27] MEDS: Morphine 2 MG/ML Syringe IV (21:15)
[2024-03-27] MEDS: Ondansetron 4 MG/2 ML Vial IV (21:15)
[2024-03-27 21:16] LABS: Differential Indicated SCAN CRITERIA MET
[2024-03-27] MEDS: VIAFLEX IV (21:20)
[2024-03-27] MEDS: NORMAL SALINE IV (21:20)
[2024-03-27 21:22] VITALS: BP 185/83; PULSE 82; RESP 15; O2SAT 94
--- NOTE | 2024-03-27 21:29 | EX.ED.DYSGE1 ---
HPI History of Present Illness Chief Complaint: Chest Pain Detail of Chief Complaint: Chest pain rating to the back and high blood pressure Informant: patient Onset/Context/Timing Onset: Yesterday Context: Sudden Onset Timing: Continuous Quality: Severe anterior chest pain radiating through the back with pleuritic compon Location: Torso Current Severity: Severe Maximum Severity: Severe Worsened by: Breathing Relieved by: Nothing Associated Symptoms Associated Symptoms: Shortness of breath Narrative Narrative: Patient is an 84-year-old woman with history of CLL who presents with acute onset of bilateral anterior severe chest pain question of tearing going through the back associated with shortness of breath and pleuritic component. She denies history of PE or DVT. She is at risk. She has history of hypertension. Her blood pressure is higher than normal. She denies headache, double vision blurred vision loss of vision. She denies rhinorrhea, congestion postnasal drainage sore throat. She denies trauma to the torso. She denies rash to her torso. She denies abdominal pain, nausea, vomiting or diarrhea. She denies hematemesis, melena hematochezia. She denies dysuria, frequency, urgency or hematuria. Prior similar symptoms: No Recent Illness/Hospitalization: No PFSH PFSH Medical History Retroperitoneal lymphadenopathy Abdominal pain Depression Back pain Constipation Wears hearing aid Wears glasses Cancer Thyroid disease Walker as ambulation aid High cholesterol Non-smoker Leg cramps History of echocardiogram History of stress test Cardiology follow-up encounter Cholinesterase deficiency Encounter for education Anemia CLL (chronic lymphocytic leukemia) Hypothyroidism Vertigo Varicose veins of legs Supraclavicular mass Supraclavicular lymphadenopathy Skin lesion of face Skin lesion of neck Stress incontinence Psoriasis Osteoporosis Mitral valve prolapse Low back pain with right-sided sciatica Hyperlipidemia High blood pressure Hematuria Home Medications ?Medication ?Instructions ?Recorded ?Last Taken ?Type ascorbic acid (vitamin C) 100 mg 100 mg PO DAILY 08/14/22 10/20/23 History tablet calcium carbonate 600 mg PO BID 08/14/22 10/20/23 History cholecalciferol (vitamin D3) 10 10 mcg PO DAILY 08/14/22 10/20/23 History mcg (400 unit) capsule lutein 20 mg capsule 20 mg PO DAILY 08/14/22 10/20/23 History magnesium carbonate 1 cap PO DAILY 08/18/22 10/20/23 History polyethylene glycol 3350 17 4 g PO DAILY 02/23/23 10/20/23 History gram/dose oral powder (Miralax) psyllium husk 3.4 gram/5.4 gram 1 tbsp PO DAILY 02/23/23 10/20/23 History oral powder (Metamucil) mecobalamin (vitamin B12) 1,000 1,000 mcg PO Q OTHER DAY 03/01/23 10/20/23 History mcg lozenges levothyroxine 88 mcg capsule 88 mcg PO DAILY 06/01/23 10/20/23 History Disability Placard #1 ea 09/07/23 Unknown Rx zanubrutinib 80 mg capsule 160 mg PO BID 10/18/23 03/20/24 History (Brukinsa) disability placard #1 ea 01/03/24 Unknown Rx losartan 50 mg tablet 50 mg PO QHS 01/03/24 Unknown History docusate sodium 100 mg capsule 100 mg PO BID 03/22/24 Unknown History (Colace) Allergy/AdvReac Type Severity Reaction Status Date / Time No Known Allergies Allergy Verified 03/27/24 20:24 Family History Brother CAD (coronary artery disease) Cancer Hyperlipemia Mother Cancer Leukemia Sister Cancer Sarcoma Surgical History Hx of kyphoplasty S/P abdominal hysterectomy H/O umbilical hernia repair History of tonsillectomy S/P appendectomy Social History Smoking Status: Never smoker alcohol intake: never substance use type: does not use ROS ROS ED Constitutional Constitutional ED: Denies chills, fever(s) or subjective Eyes Eyes: Denies blurry vision or change in vision ENT ENT ED: Denies ear pain or rhinorrhea Cardiovascular Cardiovascular: Reports chest pain; Denies orthopnea, palpitations, paroxysmal nocturnal dyspnea or racing heartbeat Respiratory/Chest Respiratory/Chest: Reports dyspnea and dyspnea on exertion; Denies cough, orthopnea or paroxysmal nocturnal dyspnea Gastrointestinal Gastrointestinal: Denies abdominal pain, constipation, diarrhea, melena, nausea or vomiting Genitourinary Genitourinary ED: Denies dysuria, hematuria or urinary frequency Musculoskeletal Musculoskeletal: Reports back pain; Denies arthralgias or myalgias Integumentary Denies rash Neurologic Neurologic: Denies headache(s) or paresthesias Endocrine Endocrinology: Denies cold intolerance or heat intolerance Hematologic/Lymphatic Hematologic/Lymphatic: Reports systems reviewed and no addt'l complaints, except as documented EXAM Physical Exam Const Vital Signs: 03/27/24 20:23 03/27/24 20:41 03/27/24 21:22 Temperature 98.3 F Temperature Source Oral Pulse Rate 82 82 Respiratory Rate 16 15 Respiratory Effort Short of Breath Blood Pressure 187/87 H 185/83 H Blood Pressure Mean 120 117 Pulse Ox 99 94 Oxygen Delivery Method Room Air Room Air 03/27/24 22:00 Temperature Temperature Source Pulse Rate 84 Respiratory Rate 16 Respiratory Effort Blood Pressure 161/68 H Blood Pressure Mean 99 Pulse Ox 95 Oxygen Delivery Method Room Air Positive well nourished and well developed Constitutional Narrative: Patient's blood pressure is elevated. Vital signs are otherwise unremarkable. General Appearance ED: well developed and NAD; Negative for pallor HEENT Reports moist mucous membranes HEENT Narrative: Uvula midline. No deviation with protrusion. Posterior pharynx appears normal. Ears normal. Nares patent. There is no discharge. Eyes PERRL and EOMs intact bilaterally General Eye ED: Negative for pale conjunctiva or scleral icterus Neck no lymphadenopathy, supple and no JVD Chest Wall inspection of chest normal and palpation of chest normal Resp normal respiratory effort and clear to auscultation bilaterally Cardio regular rate, regular rhythm, S1 normal heart sound, S2 normal heart sound and no murmurs GI normal to inspection, nondistended, normoactive bowel sounds, non-tender, non-distended and no masses; Negative for hepatosplenomegaly Auscultation: normoactive bowel sounds Back/Spine no CVA tenderness Extremity normal to inspection General Extremety ED: Negative for edema or tenderness General Extremity: Negative for edema Neuro oriented x3, CN's II-XII intact bilaterally and no sensory deficits noted Sensorium / Orientation: alert Motor Exam: strength 5/5 throughout Psych mental status grossly normal Skin no rashes or lesions noted, no wounds and skin turgor normal General Skin Exam: Negative for jaundice or pallor MDM MDM MDM Narrative Medical decision making narrative: Patient has palpable distal pulses and they are symmetric. Differential diagnosis is aortic dissection, pulmonary embolus, pleurisy, cardiac etiology. Other noncardiac etiologies would include esophageal spasm, GERD, peptic ulcer disease. Because of concern for dissection/PE CTA was ordered of the chest. Appropriate blood work was obtained as well. Will monitor patient's blood pressure. Lab Data Attestation: I reviewed the patient's lab results. Lab results narrative: CBC reveals anemia with normal indices. Electrolyte panel reveals mild hyponatremia and hypochloremia. Estimated GFR is 97. First troponin is normal. Only 1 troponin was ordered since she has had pain for 24 hours. Labs: Laboratory Results - last 24 hr 03/27/24 20:30 WBC 6.7 RBC 4.00 L Hgb 11.8 L Hct 35.8 L MCV 89.5 MCH 29.5 MCHC 33.0 RDW Std Deviation 43.9 RDW Coeff of Bell 13.3 Plt Count 192 MPV 9.9 Immature Gran % (Auto) TREATER Neut % (Auto) TREATER Lymph % (Auto) TREATER Butler % (Auto) TREATER Eos % (Auto) TREATER Baso % (Auto) TREATER Absolute Neuts (auto) 2.1 Absolute Lymphs (auto) 3.28 Total Counted 100 Neutrophils % (Manual) 39 L Lymphocytes % (Manual) 58 H Monocytes % (Manual) 2 Eosinophils % (Manual) 1 Nucleated RBC % 0 Differential Comment Diff Path Review May foll Platelet Estimate ADEQUATE Plt Morphology Comment LARGE RBC Morphology NORM C+C Sodium 132 L Potassium 3.8 Chloride 96 L Carbon Dioxide 28.0 Anion Gap 8 BUN 8 Creatinine 0.62 Estim Creat Clear Calc 40.66 Est GFR (MDRD) Af Amer 117 Est GFR (MDRD) Non-Af 97 BUN/Creatinine Ratio 12.9 Glucose 103 Calcium 9.6 Troponin I High Sens 8 Radiography Diagnostic Testing: Clinical Impression(s) from Imaging Studies Chest CTA 03/27/24 20:54 IMPRESSION: 1. No evidence of pulmonary artery embolus. No aortic dissection or aneurysm. 2. Nonconsolidative pulmonary opacity in the left lower lobe is likely atelectasis or perhaps scarring. No definite pneumonia. 3. Multilevel lumbar vertebral augmentation for the treatment of underlying compression fractures. Degenerative changes and scoliotic curvature. 4. Extensive lymphadenopathy and splenomegaly. Consider metastatic disease, systemic infection, or lymphoma. Findings are similar to the prior CT examination. Electronically Signed: Franko Rincon DO at 22:05 EDT , Patient has history of CLL. This is most likely the cause of her extensive lymphadenopathy and splenomegaly. Treatment and Re-Evaluation :: Patient and family were told the cause of her pain is unknown. More importantly the things that I needed to rule out have been ruled out. Discharge Plan Triage Chief Complaint: Chest Pain ED Provider: Jaime Peters Dx/Rx/DC Orders Clinical Impression: Chest pain, CLL (chronic lymphocytic leukemia), Hyperlipidemia, Retroperitoneal lymphadenopathy, Elevated blood pressure reading with diagnosis of hypertension, Splenomegaly Instructions: ED Chest Pain, Noncardiac, ED Chest Pain, Uncertain Cause, ED Hypertension, Established Prescriptions: No Action ascorbic acid (vitamin C) 100 mg tablet 100 mg PO DAILY calcium carbonate 600 mg calcium (1,500 mg) tablet 600 mg PO BID cholecalciferol (vitamin D3) 10 mcg (400 unit) capsule 10 mcg PO DAILY lutein 20 mg capsule 20 mg PO DAILY Rx Instructions: give with meal/snack magnesium carbonate 1 cap PO DAILY levothyroxine 88 mcg capsule 88 mcg PO DAILY losartan 50 mg tablet 50 mg PO QHS Metamucil 3.4 gram/5.4 gram powder 1 tbsp PO DAILY Rx Instructions: mix into at least 8 oz of water or juice before administering polyethylene glycol 3350 [Miralax] 17 gram/dose powder 4 g PO DAILY mecobalamin (vitamin B12) 1,000 mcg lozenge 1,000 mcg PO Q OTHER DAY Rx Instructions: allow to dissolve in mouth OR may chew lightly before swallowing (DME) Disability Placard See Rx Instructions .Route .MEDSUPPLY Qty: 1 0RF Rx Instructions: As directed (DME) disability placard See Rx Instructions .Route .MEDSUPPLY Qty: 1 0RF Rx Instructions: . Brukinsa 80 mg capsule 160 mg PO BID docusate sodium [Colace] 100 mg capsule 100 mg PO BID Primary Care Provider: Lisette Apple Referrals: Lisette Apple DO [Primary Care Provider] - 1 Week Activity Restrictions/Additional Instructions: Call Dr. Apple's office for follow-up appointment to have blood pressure checked in 1 week. Print Language: Frisian Disposition Disposition: Home, Self Care
[2024-03-27 21:34] LABS: Anion Gap 8 (5-15); BUN 8 mg/dL (7-18); BUN/Creat Ratio 12.9 RATIO (10-20); Calcium,Total 9.6 mg/dL (8.5-10.1); Chloride 96 mmol/L (98-107); Creatinine, Serum 0.62 mg/dL (0.55-1.02); EST Glomerular Filtration Rate 97 mL/min (>60); Est Glom Filt Rate - Afr Amer 117 mL/min (>60); Estimated Creatinine Clearance 40.66 ml/min; Glucose 103 mg/dL (74-106); Potassium 3.8 mmol/L (3.5-5.1); Sodium Level 132 mmol/L (136-145); Troponin-I HS 8 pg/mL (3.0-54.0)
[2024-03-27 21:43] LABS: Eosinophil 1 % (0-5); Lymphocyte 58 % (19-41); Monocyte 2 % (0-10); Neutrophil-Segmented 39 % (47-70); Total Cells Counted 100 (MANUAL DIFF)
[2024-03-27 21:44] LABS: Platelet Estimate ADEQUATE (ADEQ); Platelet Morphology LARGE; Red Cell Morphology NORM C+C NORMAL (NORM C&C)
[2024-03-27 21:46] LABS: Scan Smear per Review Criteria MANUAL DIFF
[2024-03-27 22:00] VITALS: BP 161/68; PULSE 84; RESP 16; O2SAT 95
--- OUTSIDE RECORDS SUMMARY | 2024-03-27 22:03 | XMS RPT_ITS | CCD ---
Author Organization [facility] Inform ion [facility] Care Team Providers Care Manager Of Training Name Role Phone Tacos Estes DO Unavailable LIZZETTE SAELS DO Primary Care Physician Joan Carballo PT Unavailable Unavailable LIZZETTE SALES DO Primary Care Physician [phone] LIZZETTE SALES DO Attending Unavailable MÓNICA DO, LIZZETTE Primary Care Unavailable MÓNICA DO LIZZETTE Admitting Unavailable LU TECHNICAL ASSOCIATE-TOEING STOCKINGSNURIS Attending Yana SALES DO, LIZZETTE Primary Care Unavailable RUPALI RAMOS, DR CHANTAL Koroma Attending Unavailyris e MÓNICA DO, LIZZETTE Primary Care Unavailable MÓNICA DO, LIZZETTE Attending Unavailable MÓNICA DO, LIZZETTE Primary Care Unavailable GOKUL REYES MD Attending Unavailable MÓNICA DO, LIZZETTE Primary Care Unavailable BREA DO, LEONARDO Attending Unavailable MÓNICA DO, LIZZETTE Primary Care Unavailable MÓNICA DOLIZZETTE Attending Unavailable MÓNICA DO, LIZZETTE Primary Care Unavailable MÓNICA DO, LIZZETTE Attending Unavailable MÓNICA DO, LIZZETTE Primary Care Unavailable GALE MARROQUIN PA-C Attending Unavailab nikolas MÓNICA DO, LIZZETTE Primary Care Unavailable NITHYA DURAN, DR BOWER Attending Unavailable MÓNICA DO, LIZZETTE Primary Care Unavailable KAREN TECHNICAL ASSOCIATE-TOEING STOCKINGS, LEONARDO Attending Yana SALES DO, LIZZETTE Primary Care Unavailable MÓNICA DO, LIZZETTE Attending Unavailable MÓNICA DO, LIZZETTE Primary Care Unavailable KAREN TECHNICAL ASSOCIATE-TOEING STOCKINGS, LEONARDO Attending Yana SALES DO, LIZZETTE Primary Care Unavailable MÓNICA DO, LIZZETTE Attending Unavailable MÓNICA DO, LIZZETTE Primary Care Unavailable RICHARDSON TECHNICAL ASSOCIATE-TOEING STOCKINGSBENITO Attending Unavailabl e LIZZETTE SALES DO Primary Care Unavailable LIZZETTE SALES DO Attending Unavailable LIZZETTE SALES DO Primary Care Unavailable LIZZETTE SALES DO Attending Unavailable LIZZETTE SALES DO Primary Care Unavailable Medications Current Medications Medication Drug Class(es) Dates Sig (Normalized) Sig (Original) acetaminophen 325 mg / HYDROcodone bitartrate 5 mg oral tablet (3 sources) Opioid Agonist Start: 10-15-2023 take 1 tablet by mouth every six hours as needed for pain acetaminophen-hyd rocodone 325 mg-5 mg oral tablet TAKE 1 TABLET BY MOUTH EVERY 6 HOURS NEEDED FOR SEVERE PAIN FOR 3 DAYS Start Date: 10/15/23 Status: Ordered Start: 09-21-2023 End: 09-24-2023 take 1 tablet by mouth every six hours as needed for pain [place] 325- 5 mg oral tablet Dose = 1 tab(s), Oral, q6h, PRN As needed for severe pain, X 3 day(s), # 12 tab(s), 0 Refill(s), Back pain, 59.7 Start Date: 09/21/23 Stop Date: 09/24/23 Status: Ordered amoxicillin 875 mg / clavulanate 125 mg oral tablet (2 sources) Penicillin-class Antibacterial Start: 11-03-2023 End: 11-13-2023 take 1 tablet by mouth every twelve hours Ascorbic Acid (20 sources) Vitamin C Start: 04-11-2019 Vitamin C Dose : 100 mg =, Chewed, qDay, 0 Refill(s) Start Date: 04/11/19 Status: Ordered brompheniramine maleate 0.4 mg/ml / dextromethorphan hydrobromide 2 mg/ml / pseudoephedrine hydrochloride 6 mg/ml oral solution (1 source) alpha-Adrenergic Agonist, Uncompetitive S-rnawct-M-aspartat e Receptor Antagonist, Sigma-1 Agonist Start: 08-12-2022 End: 08-26-2022 take 1 dose by mouth four times daily as needed Bromfed DM oral syrup Dose = 5 mL, Oral, QID, PRN for cold symptoms, X 7 day(s), # 120 mL, 1 Refill(s), Pharmacy: [facility], Lab test positive for detection of COVID-19 virus Cough, 159.5, cm, 08/05/22 16:04:00 EST, Height Start Date: 08/12/22 Stop Date: 08/26/22 Status: Ordered Calcium (5 sources) Phosphate Binder, Calcium Start: 04-11-2019 calcium (as carbonate) 600 mg oral tablet Dose : 600 mg = 1 tab(s), Oral, qDay, 0 Refill(s) Start Date: 04/11/19 Status: Ordered calcium carbonate 1500 mg oral tablet (20 sources) Start: 04-11-2019 calcium (as carbonate) 600 mg oral tablet Dose : 600 mg = 1 tab(s), Oral, qDay, 0 Refill(s) Start Date: 04/11/19 Status: Ordered cephalexin 500 mg oral tablet (2 sources) Cephalosporin Antibacterial Start: 05-04-2023 End: 05-14-2023 cephalexin 500 mg oral tablet Dose : 500 mg = 1 tab(s), Oral, BID, X 10 day(s), # 20 tab(s), 0 Refill(s), 05/14/23 5:37:00 PM EST, Pharmacy: [facility], 158.5, cm, 10/23/22 9:40:00 EDT, Height, 59.3, kg, 05/04/23 17:09:00 EST, Dosing Weight Start Date: 05/04/23 Stop Date: 05/14/23 Status: Ordered chromium picolinate 0.2 mg oral tablet (20 sources) Start: 04-11-2019 chromium picolinate 200 mcg oral tablet Dose : 200 mcg = 1 tab(s), Oral, Daily, # 100 tab(s), 0 Refill(s) Start Date: 04/11/19 Status: Ordered DME MISCellaneous (4 sources) Start: 10-19-2023 DME MISCellaneous See Instructions, Electronic lift chair, # 1 EA, 0 Refill(s), Compression fracture of vertebra CLL (chronic lymphocytic leukemia), 59.3 Start Date: 10/19/23 Status: Ordered hydroCHLOROthiazide 25 mg oral tablet (9 sources) Thiazide Diuretic Start: 10-29-2021 hydroCHLOROthiazide 25 mg oral tablet Dose : 25 mg = 1 tab(s), Oral, qDay, # 90 tab(s), 3 Refill(s), Pharmacy: [facility], Hypertension High blood pressure, 159, cm, 10/29/21 7:54:00 EDT, Height, kg, 10/29/21 7:54:00 EDT, Dosing Weight Start Date: 10/29/21 Status: Ordered Start: 10-08-2020 hydroCHLOROthi azide 25 mg oral tablet Dose : 25 mg = 1 tab(s), Oral, qDay, # 90 tab(s), 3 Refill(s), Pharmacy: [facility], Hypertension, 160, cm, 10/08/20 8:35:00 EDT, Height, kg, 10/08/20 8:35:00 EDT, Dosing Weight Start Date: 10/08/20 Status: Ordered levocetirizine dihydrochloride 5 mg oral tablet (1 source) Histamine-1 Receptor Antagonist Start: 12-15-2023 Xyzal 5 mg oral tablet Dose : 5 mg = 1 tab(s), Oral, qHS, # 90 tab(s), 1 Refill(s), Pharmacy: [facility], Seasonal allergies, 157, cm, 12/14/23 11:20:00 EDT, Height, kg, 12/14/23 11:20:00 EDT, Dosing Weight Start Date: 12/15/23 Status: Ordered losartan potassium 50 mg oral tablet (20 sources) Angiotensin 2 Receptor Juan C Start: 05-13-2023 losartan 50 mg oral tablet Dose : 50 mg = 1 tab(s), Oral, qDay, # 90 tab(s), 1 Refill(s), Pharmacy: [facility] [place], Hypertension High blood pressure, 157, cm, 11/03/23 8:52:00 EDT, Height, kg, 11/03/23 8:52:00 EDT, Dosing Weight Start Date: 11/09/23 Status: Ordered Start: 10-23-2022 losartan 50 mg oral tablet Dose : 50 mg = 1 tab(s), Oral, qDay, # 90 tab(s), 1 Refill(s), Pharmacy: [facility] [place], Hypertension High blood pressure, 158.5, cm, 10/23/22 9:40:00 EDT, Height, kg, 10/23/22 9:40:00 EDT, Dosing Weight Start Date: 10/23/22 Status: Ordered Start: 08-28-2022 End: 09-04-2022 losartan 50 mg oral tablet D ose : 50 mg = 1 tab(s), Oral, qDay, Changing dosing frequency. Do not send at this time, patient to call when needed, thank you, # 90 tab(s), 0 Refill(s), Pharmacy: [facility] [place], Hypertension High blood pressure, 160, cm, 08/28/22... Start Date: 08/28/22 Stop Date: 09/04/22 Status: Ordered Start: 08-03-2022 End: 08-10-2022 losartan 50 mg oral tablet D ose : 50 mg = 1 tab(s), Oral, BID, # 14 tab(s), 0 Refill(s), Pharmacy: [facility], Hypertension High blood pressure, 159.5, cm, 07/07/22 15:22:00 EST, Height, kg, 07/07/22 15:22:00 EST, Dosing Weight Start Date: 08/03/22 Stop Date: 08/10/22 Status: Ordered Start: 06-03-2022 losartan 50 mg oral tablet Dose : 50 mg = 1 tab(s), Oral, BID, Increased dosing, # 180 tab(s), 1 Refill(s), Pharmacy: [facility] [place], Hypertension High blood pressure, 160, cm, 05/06/22 8:04:00 EST, Height, kg, 05/06/22 8:04:00 EST, Dosing Weight Start Date: 06/03/22 Status: Ordered Start: 10-29-2021 End: 05-26-2022 losartan 50 mg oral tablet D ose : 50 mg = 1 tab(s), Oral, qDay, # 14 tab(s), 0 Refill(s), Pharmacy: [facility], Hypertension High blood pressure, 160, cm, 05/06/22 8:04:00 EST, Height, kg, 05/06/22 8:04:00 EST, Dosing Weight Start Date: 05/12/22 Stop Date: 05/26/22 Status: Ordered Start: 10-08-2020 losartan 50 mg oral tablet Dose : 50 mg = 1 tab(s), Oral, qDay, # 90 tab(s), 3 Refill(s), Pharmacy: [facility], Hypertension, 160, cm, 10/08/20 8:35:00 EDT, Height, kg, 10/08/20 8:35:00 EDT, Dosing Weight Start Date: 10/08/20 Status: Ordered Start: 10-05-2017 LOSARTAN POTAS SIUM 50 MG TABS once daily LOSARTAN POTASSIUM [id number] Scot D Estes DO lutein 20 mg oral capsule (20 sources) Start: 04-11-2019 lutein 20 mg oral capsule Dose : 20 mg = 1 cap(s), Oral, qDay, # 30 cap(s), 0 Refill(s) Start Date: 04/11/19 Status: Ordered magnesium oxide 250 mg oral tablet (13 sources) Start: 08-28-2022 take 1 mg by mouth once daily Magnesium 250 mg tablet mg = tab(s), Oral, qDay, 0 Refill(s) Start Date: 08/28/22 Status: Ordered meclizine hydrochloride 12.5 mg oral tablet (1 source) Antiemetic Start: 04-30-2021 End: 05-07-2021 meclizine 12.5 mg oral tablet Dose : 12.5 mg = 1 tab(s), Oral, TID, PRN as needed for dizziness, X 7 day(s), # 20 tab(s), 0 Refill(s), 05/07/21 9:18:00 EST, Pharmacy: [facility], Vertigo, 160.5, cm, 04/30/21 8:25:00 EST, Height, kg, 04/30/21 8:25:00 EST, Dosing Weight Start Date: 04/30/21 Stop Date: 05/07/21 Status: Ordered meloxicam 15 mg oral tablet (4 sources) Nonsteroidal Anti-inflammatory Drug Start: 09-15-2023 Mobic 15 mg oral tablet Dose : 15 mg = 1 tab(s), Oral, qDay, # 30 tab(s), 0 Refill(s), Pharmacy: [facility], 160, cm, 09/13/23 11:37:00 EDT, Height, kg, 09/13/23 11:37:00 EDT, Dosing Weight Start Date: 09/15/23 Status: Ordered Start: 10-05-2017 MELOXICAM 15 M G TABS once daily MELOXICAM [id number] Tacos Estes DO ondansetron 4 mg oral tablet (2 sources) Serotonin-3 Receptor Antagonist Start: 09-21-2023 End: 10-02-2023 Zofran 4 mg oral tablet Dose : 4 mg = 1 tab(s), Oral, q6h, PRN As needed for nausea and vomiting, take 30-60 mins prior to pain medication, X 10 day(s), # 40 tab(s), 0 Refill(s), 10/02/23 8:59:00 AM EDT, Pharmacy: [facility], Lumbar back pain, 159, cm, 09/22/23 8:01:00 EDT, Height, kg, 09/22/23 8:01:00 EDT, Dosing Weight Start Date: 09/22/23 Stop Date: 10/02/23 Status: Ordered pantoprazole 40 mg delayed release oral tablet (3 sources) Proton Pump Inhibitor Start: 05-08-2023 Protonix 40 mg oral enteric coated tablet Dose : 80 mg = 2 tab(s), Oral, qDay, # 30 tab(s), 0 Refill(s) Start Date: 05/08/23 Status: Ordered predniSONE 10 mg oral tablet (1 source) Start: 02-23-2022 End: 02-28-2022 predniSONE 10 mg oral tablet Dose : 10 mg = 1 tab(s), Oral, BID, # 10 tab(s), 0 Refill(s), Pharmacy: [facility], 157.6, cm, 02/23/22 13:57:00 EDT, Height, kg, 02/23/22 13:57:00 EDT, Dosing Weight Start Date: 02/23/22 Stop Date: 02/28/22 Status: Ordered levothyroxine sodium 0.088 mg oral tablet (20 sources) l-Thyroxine Start: 05-13-2023 levothyroxine 88 mcg (0.088 mg) oral tablet Dose : 88 mcg = 1 tab(s), Oral, qDay, 1 tablet by mouth daily -dosing change-not sent in, # 90 tab(s), 1 Refill(s), Pharmacy: [facility] [place], Hypothyroid, 157, cm, 11/03/23 8:52:00 EDT, Height, kg, 11/03/23 8:52:00 EDT, Dosing Weight Start Date: 11/09/23 Status: Ordered Start: 10-23-2022 levothyroxine 88 mcg (0.088 mg) oral tablet Dose : 88 mcg = 1 tab(s), Oral, qDay, # 90 tab(s), 1 Refill(s), Pharmacy: [facility] [place], Hypothyroid, 158.5, cm, 10/23/22 9:40:00 EDT, Height, kg, 10/23/22 9:40:00 EDT, Dosing Weight Start Date: 10/23/22 Status: Ordered Start: 05-13-2022 levothyroxine 88 mcg (0.088 mg) oral tablet Dose : 88 mcg = 1 tab(s), Oral, qDay, Increased dose, please send immediately, # 90 tab(s), 1 Refill(s), Pharmacy: [facility], Hypothyroid, 160, cm, 05/06/22 8:04:00 EST, Height Start Date: 05/13/22 Status: Ordered Start: 10-29-2021 End: 05-26-2022 levothyroxine 75 mcg (0.075 mg) oral tablet Dose : 75 mcg = 1 tab(s), Oral, qDay, # 14 tab(s), 0 Refill(s), Pharmacy: [facility], Hypothyroidism Hypothyroid, 160, cm, 05/06/22 8:04:00 EST, Height, kg, 05/06/22 8:04:00 EST, Dosing Weight Start Date: 05/12/22 Stop Date: 05/26/22 Status: Ordered Start: 10-31-2020 levothyroxine 75 mcg (0.075 mg) oral tablet Dose : 75 mcg = 1 tab(s), Oral, qDay, # 10 tab(s), 0 Refill(s), Pharmacy: [facility], Hypothyroidism, 160, cm, 10/08/20 8:35:00 EDT, Height, kg, 10/08/20 8:35:00 EDT, Dosing Weight Start Date: 10/31/20 Status: Ordered Start: 10-05-2017 LEVOTHYROXINE SODIUM 88 MCG TABS once daily LEVOTHYROXINE SODIUM [id number] Scot Carl Estes DO tiZANidine 4 mg oral tablet (1 source) Central alpha-2 Adrenergic Agonist Start: 05-11-2023 End: 05-25-2023 tiZANidine 4 mg oral tablet Dose : 4 mg = 1 tab(s), Oral, qHS, PRN as needed for muscle spasm, # 14 tab(s), 0 Refill(s), Pharmacy: [facility], Thoracic myofascial strain Radicular pain in right arm, 159, cm, 05/11/23 10:27:00 EST, Height, kg, 05/11/23 10:27:00 EST, Dosing Weight Start Date: 05/11/23 Stop Date: 05/25/23 Status: Ordered traMADol hydrochloride 50 mg oral tablet (2 sources) Opioid Agonist Start: 07-02-2021 End: 07-07-2021 traMADol 50 mg oral tablet Dose : 50 mg = 1 tab(s), Oral, q12h, PRN for pain, X 5 day(s), # 10 tab(s), 0 Refill(s), 07/07/21 13:41:00 EST, Pharmacy: [facility], Acute right flank pain Hematuria, 159, cm, 07/02/21 13:11:00 EST, Height, 64.6, kg, 07/02/21 13:11:... Start Date: 07/02/21 Stop Date: 07/07/21 Status: Ordered vitamin B12 (13 sources) Vitamin B12 Start: 08-28-2022 Vitamin B12 ta kes one every other day, 0 Refill(s) Start Date: 08/28/22 Status: Ordered Vitamin D3 400 intl units oral capsule (20 sources) Start: 04-11-2019 Vitamin D3 400 intl units oral capsule Dose : 400 unit(s) = 1 cap(s), Oral, Daily, 0 Refill(s) Start Date: 04/11/19 Status: Ordered zanubrutinib 80 mg oral capsule (10 sources) Start: 05-11-2023 Brukinsa 80 mg oral capsule Dose : 160 mg = 2 cap(s), Oral, BID, # 120 cap(s), 0 Refill(s) Start Date: 05/11/23 Status: Ordered Zinc (2 sources) Start: 07-02-2021 take 1 mg by mouth once daily Zinc mg =, Oral, qDay, 0 Refill(s) Start Date: 07/02/21 Status: Ordered Completed/Discontinued Medications Medication Drug Class(es) Dates Sig (Normalized) Sig (Original) aspirin 81 mg delayed release oral tablet (14 sources) Platelet Aggregation Inhibitor, Nonsteroidal Anti-inflammatory Drug Start: 10-08-2020 End: 10-03-2021 aspirin 81 mg oral delayed release tablet Dose : 81 mg = 1 tab(s), Oral, Every other day, OTC - not sent in, # 15 tab(s), 11 Refill(s), other reason (Rx), Varicose veins of legs Start Date: 10/08/20 Stop Date: 10/03/21 Status: Ordered Start: 10-08-2020 End: 10-03-2021 aspirin 81 mg oral delayed r elease tablet Dose : 81 mg = 1 tab(s), Oral, Every other day, OTC - not sent in, # 15 tab(s), 11 Refill(s), other reason (Rx), Varicose veins of legs Start Date: 10/08/20 Stop Date: 10/03/21 Status: Ordered dicyclomine hydrochloride 10 mg oral capsule (3 sources) Anticholinergic Start: 10-15-2023 End: 10-29-2023 dicyclomine 10 mg oral capsule Dose : 10 mg = 1 cap(s), Oral, QID, # 56 cap(s), 0 Refill(s), Pharmacy: [facility], Abdominal bloating with cramps Constipation, 159, cm, 10/15/23 11:22:00 EDT, Height, kg, 10/15/23 11:13:00 EDT, Dosing Weight Start Date: 10/15/23 Stop Date: 10/29/23 Status: Ordered Start: 10-04-2023 End: 05-06-2024 dicyclomine 20 mg oral table t Dose : 20 mg = 1 tab(s), Oral, TID, # 21 tab(s), 0 Refill(s) Start Date: 10/04/23 Stop Date: 10/11/23 Status: Ordered HYDROCHLOROT (1 source) Start: 10-05-2017 take 25 mg by mouth once daily HYDROCHLOROT 25mg by mouth once daily HYDROCHLOROT Scot aCrl Estes DO potassium (1 source) Start: 10-05-2017 POTASSIUM TABS once daily POTASSIUM TABS [id number] Scot D Estes DO raloxifene hydrochloride 60 mg oral tablet (1 source) Estrogen Agonist/Antagoni st Start: 10-05-2017 EVISTA 60 MG TABS once every other daily RALOXIFENE HCL [id number] Scot D Estes DO traZODone hydrochloride 50 mg oral tablet (2 sources) Serotonin Reuptake Inhibitor Start: 11-22-2023 End: 12-22-2023 traZODone 50 mg oral tablet Dose : 50 mg = 1 tab(s), Oral, qHS, # 30 tab(s), 0 Refill(s), Pharmacy: [facility], Insomnia, 157, cm, 11/22/23 7:28:00 EDT, Height, kg, 11/22/23 7:28:00 EDT, Dosing Weight Start Date: 11/22/23 Stop Date: 12/22/23 Status: Ordered Problems Active Problems Problem Classification Problem Date Documented Da te Episodic/Chronic Abdominal pain (20 sources) Right upper quadrant pain; Translations: [Tenderness of right lower quadrant of abdomen] Onset: 4 02-21-2021 Episodic Conditions associated with dizziness or vertigo (20 sources) Vertigo 04-30-2021 Episodic Disorders of lipid metabolism (20 sources) Hyperlipidemia 10-10-2019 Chronic Esophageal disorders (10 sources) Gastroesophageal reflux disease 05-11-2023 Chronic Essential hypertension (20 sources) Hypertensive disorder; Translations: [Essential (primary) hypertension] Onset: 4 10-10-2019 Chronic Genitourinary symptoms and ill-defined conditions (20 sources) Female stress incontinence 03-21-2019 Chronic Genitourinary symptoms and ill-defined conditions (20 sources) Increased frequency of urination; Translations: [Blood in urine] Onset: 4 10-10-2019 Episodic Heart valve disorders (20 sources) Mitral valve prolapse 03-21-2019 Chronic Leukemias (12 sources) Chronic lymphoid leukemia, disease 10-23-2022 Chronic Lymphadenitis (17 sources) Supraclavicular lymphadenopathy 07-07-2022 Episodic Nonspecific chest pain (20 sources) Chest pain; Translations: [Atypical chest pain] Onset: 3 03-21-2019 Episodic Osteoporosis (20 sources) Osteoporosis 03-21-2019 Chronic Other connective tissue disease (20 sources) Cramp 10-29-2021 Episodic Other fractures (1 source) Collapse of vertebra; Translations: [Collapsed vertebra, not elsewhere classified, site unspecified, initial encounter for fracture] Onset: 4 Episodic Other fractures (4 sources) Compression fracture of vertebral column 11-03-2023 Episodic Other fractures (3 sources) Fracture of lumbar spine 10-15-2023 Episodic Other fractures (2 sources) Collapsed vertebra, not elsewhere classified, lumbar region, subsequent encounter for fracture with routine healing; Translations: [Collapsed vertebra, not elsewhere classified, lumbar region, subsequent encounter for fracture with] Onset: 4 Episodic Other gastrointestinal disorders (20 sources) Abdominal bloating 02-21-2021 Episodic Other gastrointestinal disorders (4 sources) Constipation 10-15-2023 Episodic Other inflammatory condition of skin (20 sources) Psoriasis 03-21-2019 Chronic Other nervous system disorders (17 sources) Tingling of skin 07-07-2022 Episodic Other non-traumatic joint disorders (20 sources) Hip pain 04-30-2021 Episodic Other non-traumatic joint disorders (20 sources) Shoulder pain 03-21-2019 Episodic Other screening for suspected conditions (not mental disorders or infectious disease) (18 sources) Viral screening status 05-06-2022 Episodic Other skin disorders (20 sources) Skin lesion 04-30-2020 Episodic Other skin disorders (20 sources) Eruption 10-29-2021 Episodic Other skin disorders (18 sources) Lesion of skin of face 03-10-2022 Episodic Other skin disorders (17 sources) Mass of neck 07-07-2022 Episodic Other upper respiratory disease (20 sources) Seasonal allergy 10-29-2021 Chronic Other upper respiratory infections (15 sources) Upper respiratory infection 08-05-2022 Episodic Residual codes; unclassified (20 sources) Needs influenza immunization 04-09-2020 Episodic Residual codes; unclassified (2 sources) Insomnia, unspecified; Translations: [Insomnia, unspecified] Onset: Episodic Residual codes; unclassified (1 source) Insomnia 12-14-2023 Episodic Spondylosis; intervertebral disc disorders; other back problems (1 source) Degeneration of cervical intervertebral disc; Translations: [Other cervical disc degeneration, unspecified cervical region] Onset: 8 10-05-2017 Chronic Spondylosis; intervertebral disc disorders; other back problems (20 sources) Spinal stenosis in cervical region; Translations: [Lumbago with sciatica] Onset: 8 10-05-2017 Episodic Thyroid disorders (20 sources) Hyperthyroidism; Translations: [Hypothyroidism] 03-21-2019 Chronic Unclassified (20 sources) Patient encounter status 04-09-2020 Unclassified (13 sources) Mental state finding 08-28-2022 Unclassified (10 sources) Strain of muscle at thorax level 05-11-2023 Unclassified (9 sources) Body mass index 20-24 - normal 08-03-2023 Unclassified (9 sources) Influenza vaccination declined 08-03-2023 Unclassified (9 sources) Never used tobacco 08-03-2023 Varicose veins of lower extremity (20 sources) Varicose veins of lower extremity 10-08-2020 Episodic Past or Other Problems Problem Classification Problem Date Documented Da te Episodic/Chronic Fever of unknown origin (2 sources) Fever, unspecified; Translations: [Fever, unspecified] Onset: 05-04-2023 Episodic Unclassified (1 source) Problem Results Test Name Value Interpretation Reference Range Facility LABORATORYOrdered By: SYSTEM SYSTEM on 02-14-2024 TSH Qn 1.32 m[IU]/L Normal 0.36 - 3.74 mcIU/mL AO ADM SS TSHRon 02-14-2024 TSH Qn 1.32 m[IU]/L Normal 0.36-3.74 [facility] Comment on above: Performed By: #### T [facility] #### [address] [address] .GFRon 12-16-2023 GFR 111 ml/min/1.73sqm Normal [facility] ([place]) Comment on above: Result Comment: GFR Population mean for , Non- Americans Ages 20-29 = 116 mL/min/1.73 sq.m. Ages 30-39 = 107 mL/min/1.73 sq.m. Ages 40-49 = 99 mL/min/1.73 sq.m. Ages 50-59 = 93 mL/min/1.73 sq.m. Ages 60-69 = 85 mL/min/1.73 sq.m. Ages 70+ = 75 mL/min/1.73 sq.m. Chronic Kidney Disease: Less than 60 mL/min/1.73 square meters End Stage Renal Disease: Less than 15 mL/min/1.73 square meters Performed By: #### L IPID, VIDH, CMP, TSH, GFR #### [address] [address] GFR Non- 92 ml/min/1.73sqm Normal [facility] ([place]) Comment on above: Result Comment: GFR Population mean for , Non- Americans Ages 20-29 = 116 mL/min/1.73 sq.m. Ages 30-39 = 107 mL/min/1.73 sq.m. Ages 40-49 = 99 mL/min/1.73 sq.m. Ages 50-59 = 93 mL/min/1.73 sq.m. Ages 60-69 = 85 mL/min/1.73 sq.m. Ages 70+ = 75 mL/min/1.73 sq.m. Chronic Kidney Disease: Less than 60 mL/min/1.73 square meters End Stage Renal Disease: Less than 15 mL/min/1.73 square meters Performed By: #### L IPID, VIDH, CMP, TSH, GFR #### [address] [address] CMPon 12-16-2023 Albumin Level 3.8 G/dL Normal 3.4-4.8 [facility] ([place] Comment on above: Performed By: #### L IPID, VIDH, CMP, TSH, GFR #### [address] [address] Albumin/Globulin [Mass ratio] 1.5 {ratio} Normal 1.1-2.5 [facility] ([place] Comment on above: Performed By: #### L IPID, VIDH, CMP, TSH, GFR #### [address] [address] ALP [Catalytic activity/Vol] 77 U/L Normal 40-135 [facility] ([place] Comment on above: Performed By: #### L IPID, VIDH, CMP, TSH, GFR #### [address] [address] ALT [Catalytic activity/Vol] 21 U/L Normal 14-59 [facility] ([place] Comment on above: Performed By: #### L IPID, VIDH, CMP, TSH, GFR #### [address] [address] AST [Catalytic activity/Vol] 12 U/L Normal 10-40 [facility] ([place] Comment on above: Performed By: #### L IPID, VIDH, CMP, TSH, GFR #### [address] [address] Bili Total 0.4 mg/dL Normal 0.2-1.0 [facility] ([place] Comment on above: Result Comment: Use of this assay is not recommended for patients undergoing treatment with eltrombopag due to the potential for falsely elevated results. Performed By: #### L IPID, VIDH, CMP, TSH, GFR #### [address] [address] BUN/Creatinine Ratio 18 ratio Normal 7-27 [facility] ([place] Comment on above: Performed By: #### L IPID, VIDH, CMP, TSH, GFR #### [address] [address] Calcium [Mass/Vol] 9.7 mg/dL Normal 8.4-10.2 [facility] [place] Comment on above: Performed By: #### L IPID, VIDH, CMP, TSH, GFR #### [address] [address] Chloride [Moles/Vol] 100 mmol/L Normal 98-107 [facility] ([place] Comment on above: Performed By: #### L IPID, VIDH, CMP, TSH, GFR #### [address] [address] CO2 [Moles/Vol] 30 mmol/L Normal 23-31 [facility] ([place] Comment on above: Performed By: #### L IPID, VIDH, CMP, TSH, GFR #### [address] [address] Creatinine [Mass/Vol] 0.62 mg/dL Normal 0.55-1.02 [facility] ([place]) Comment on above: Performed By: #### L IPID, VIDH, CMP, TSH, GFR #### [address] [address] Electrolyte Balance 7.0 mEq/L Normal 4.0-15.0 [facility] ([place] Comment on above: Performed By: #### L IPID, VIDH, CMP, TSH, GFR #### [address] [address] Globulin 2.6 G/dL Normal [facility] ([place] Comment on above: Performed By: #### L IPID, VIDH, CMP, TSH, GFR #### [address] [address] Glucose [Mass/Vol] 90 mg/dL Normal 83-110 [facility] [place] Comment [place]: Performed By: #### L IPID, VIDH, CMP, TSH, GFR #### [address] [address] Potassium [Moles/Vol] 4.8 mmol/L Normal 3.5-5.1 [facility] ([place] Comment on above: Performed By: #### L IPID, VIDH, CMP, TSH, GFR #### [address] [address] Sodium [Moles/Vol] 137 mmol/L Normal 136-145 [facility] [place] Comment [place]: Performed By: #### L IPID, VIDH, CMP, TSH, GFR #### [address] [address] Total Protein 6.4 G/dL Normal 6.4-8.2 [facility] ([place] Comment on above: Performed By: #### L IPID, VIDH, CMP, TSH, GFR #### [address] [address] Urea nitrogen [Mass/Vol] 11 mg/dL Normal 7-18 [facility] [place] Comment on above: Performed By: #### L IPID, VIDH, CMP, TSH, GFR #### [address] [address] FT4on 12-16-2023 Free T4 [Mass/Vol] 1.72 ng/dL High 0.76-1.46 [facility] [place] Comment [place]: Order Comment: Order ed by Discern Performed By: #### L IPID, VIDH, CMP, TSH, GFR #### [address] [address] LIPIDon 12-16-2023 Cholesterol [Mass/Vol] 211 mg/dL High 0-200 [facility] ([place] Comment on above: Result Comment: Chol esterol Reference Interval: Less than 200 Desirable 200-239 Borderline high risk 240 and above High risk Performed By: #### L IPID, VIDH, CMP, TSH, GFR #### [address] [address] Cholesterol in HDL [Mass/Vol] 70 mg/dL High 40-60 [facility] [place] Comment on above: Performed By: #### L IPID, VIDH, CMP, TSH, GFR #### [address] [address] Cholesterol in LDL [Mass/Vol] 132 mg/dL High 0-130 [facility] [place] Comment on above: Performed By: #### L IPID, VIDH, CMP, TSH, GFR #### [address] [address] Triglyceride [Mass/Vol] 45 mg/dL Normal 0-150 [facility] [place] Comment on above: Result Comment: Trig lyceride Reference Interval: Less than 150 Normal 150-199 Borderline high risk 200-499 High risk 500 or higher Very high risk Performed By: #### L IPID, VIDH, CMP, TSH, GFR #### [id number] [place], [place] [address] TSHRon 12-16-2023 TSH Qn 0.24 m[IU]/L Low 0.36-3.74 [facility] ([place] Comment on above: Performed By: #### L IPID, VIDH, CMP, TSH, GFR #### [id number] [place], [place] [address] VIDHon 12-16-2023 Vit. D 25-Hydroxy 72.7 ng/mL Normal [facility] ([place] Comment on above: Result Comment: Inte rpretive Values Based on Total 25(OH) Vitamin D: Deficient <20 ng/mL Insufficient 20 - <30 ng/mL Sufficient 30-100 ng/mL Performed By: #### L IPID, VIDH, CMP, TSH, GFR #### [address] [address] No Panel Informationon 11-21 Culture Urine <10,000 cfu/ml. No Significant growth. Sensitivity not indicated. [facility] Work Phone: CT ABDOMEN/PELVIS W/CONTRAST on 11-09-2023 CT ABDOMEN/PELVIS W/CONTRAST ADDENDUM ADDENDUM: I am informed that the uterus is surgically absent. Interpreted by: Nii Carmen MD Preliminary Report By: Nii Carmen MD Electronically signed By Nii Carmen MD Dictated Date: 11/09/2023 11:42:34 AM Prelim Date: 11/09/2023 11:44:06 AM Sign Date: 11/09/2023 11:44:06 AM Ordering Provider: LIZZETTE SALES ADDENDUM ADDENDUM: The entirety of the addendum was not included. 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 The vaginal cuff is slightly prominent, mistaken for uterus at the time of original dictation. The vaginal cuff is very similar to the previous study and is considered within normal limits for this patient. Interpreted by: Nii Carmen MD Preliminary Report By: Nii Carmen MD Electronically signed By Nii Carmen MD Dictated Date: 11/09/2023 2:11:40 PM Prelim Date: 11/09/2023 2:21:26 PM Sign Date: 11/09/2023 2:21:26 PM Ordering Provider: LIZZETTE SALES ORIGINAL EXAMINATION: CT OF THE ABDOMEN AND PELVIS WITH CONTRAST11/08/2023 2:17 pm TECHNIQUE: CT of the abdomen and pelvis was performed with the administration of intravenous contrast. Multiplanar reformatted images are provided for review. Automated exposure control, iterative reconstruction, and/or weight based adjustment of the mA/kV was utilized to reduce the radiation dose to as low as reasonably achievable. COMPARISON: 10/04/2023 CT HISTORY: ORDERING SYSTEM PROVIDED HISTORY: Reason for Exam: left sided abd pain for 6 weeks, bloating, diarrhea. Status post hysterectomy, appendectomy umbilical hernia repair. FINDINGS: Provided images of the lower thorax are unremarkable. Loss of height is present at L3 and L2, with slight progression at L2 since the prior exam, age indeterminate. Cement is present at these levels from augmentation and this is an interval finding. Stable appearing grade 1 anterolisthesis at L4-L5. Chronic degenerative changes of the spine. The visualized esophagus, stomach, and duodenum are unremarkable. The liver is unremarkable in size, contour, and attenuation. There is no intra or extrahepatic biliary duct dilation. No focal mass identified. The gallbladder, pancreas, and adrenal glands are unremarkable. Stable subcentimeter simple splenic cyst. The kidneys enhance symmetrically without evidence of hydronephrosis or mass. The ureters are normal course and caliber. There is no definitive evidence of urolithiasis. The urinary bladder is well-distended without wall thickening or focal mass. The uterus is within normal limits. The visualized aorta arthrosclerotic but is nonaneurysmal. Mild retroperitoneal adenopathy is present. This is noted at the left para-aortic and aortocaval spaces. The largest discrete node is left para-aortic, 1.4 cm. The finding is new since the previous study. The GI tract exhibits no acute abnormalities. The appendix is surgically absent. No pathologically enlarged retroperitoneal, mesenteric, or pelvic lymph nodes are identified. There is no free intraperitoneal air or fluid. IMPRESSION: No acute process within the abdomen or pelvis. Similar appearing compression lumbar deformities. Mild retroperitoneal adenopathy, new since the prior exam. These nodes could be reactive or hyperplastic, although lymphoproliferative disorder must be considered as well. I have personally reviewed the images of this examination and agree with the resident's findings and interpretation. Interpreted by: Nii Carmen MD Preliminary Report By: Markell Jimenez Electronically signed By Nii Carmen MD Dictated Date: 11/08/2023 2:48:52 PM Prelim Date: 11/08/2023 3:25:32 PM Sign Date: 11/08/2023 3:25:32 PM Ordering Provider: LIZZETTE SALES [facility] ([place] XR ABDOMEN APon 11-03-2023 XR ABDOMEN AP ORIGINAL EXAMINATION: ONE SUPINE XRAY VIEW(S) OF THE ABDOMEN11/03/2023 10:14 am COMPARISON: CT abdomen pelvis 10/04/2023 HISTORY: ORDERING SYSTEM PROVIDED HISTORY: Reason for Exam: pain FINDINGS: Nonobstructive bowel gas pattern. No renal calculi or calculi along the expected course of the bilateral ureters identified. Slight levocurvature of the lumbar spine is present. Treated L1 and L2 vertebral body deformities. Degenerative changes of the lumbar spine most pronounced at L4-L5. Prominent costochondral calcifications are present. IMPRESSION: Nonobstructive bowel gas pattern. Treated vertebral body deformities. I have personally reviewed the images of this examination and agree with the resident's findings and interpretation. Interpreted by: Judy Guerra MD Preliminary Report By: Emil Leonard Electronically signed By Judy Guerra MD Dictated Date: 11/03/2023 10:37:38 AM Prelim Date: 11/03/2023 10:51:20 AM Sign Date: 11/03/2023 10:51:20 AM Ordering Provider: LIZZETTE SALES [facility] ([place] BD BONE DENSITY DEXA AXIAL S Nicolás 10-13-2023 BD BONE DENSITY DEXA AXIAL SKELETON ORIGINAL EXAMINATION: BONE DENSITOMETRY 10/13/2023 12:00 pm TECHNIQUE: A bone density dual x-ray absorptiometry (DEXA) scan was performed of the axial (e.g. hips, spine) and/or appendicular (e.g. radius) skeleton as appropriate. COMPARISON: 05/12/2021 HISTORY: ORDERING SYSTEM PROVIDED HISTORY: Reason for Exam: x FINDINGS: T Score Left Femoral Neck: -3.3 Left Femoral Neck: 0.483 (g/cm2) T Score Left Hip: -2.7 Left Hip: 0.618 (g/cm2) T Score Lumbar Spine: -4.8 Lumbar Spine: 0.515 (g/cmd2) BMD Change from previous Hip:-5.0 % BMD Change from previous Lumbar Spine: 0.4 % IMPRESSION: Osteoporosis by WHO criteria. World Health Organization criteria: (Comparing with young normal sex matched population) - Normal: T-score at or above -1 SD (standard deviation) - Osteopenia: T-score between -1 and -2.5 SD - Osteoporosis: T-score at or below -2.5 SD The NOF recommends that FDA-approved medical therapies be considered in post-menopausal women and men age >/= 50 years with a: * Hip or vertebral fracture, or * T-score of /= 20% for major osteoporotic fractures or * >/= 3% for hip fractures All treatment decisions require clinical judgement and consideration of individual patient factors, including patient preferences, comorbidities, previous drug use, risk factors not captured in the FRAX registered model (e.g., frailty, falls, vitamin D deficiency, increased bone turnover, interval significant decline in bone density) and possible under- or over-estimation of fracture risk by FRAX. Interpreted by: Carlos Enrique Kenny DO Preliminary Report By: Carlos Enrique Kenny DO Electronically signed By Carlos Enrique Kenny DO Dictated Date: 10/13/2023 12:16:00 PM Prelim Date: 10/13/2023 12:23:18 PM Sign Date: 10/13/2023 12:23:18 PM Ordering Provider: BENITO Nunez [facility] ([place] .Auto Diffon 10-04-2023 Basophil, Absolute 0.1 10 3/mcL Normal 0.0-0.2 [facility] ([place]) Comment on above: Performed By: #### L IPID, VIDH, CMP, TSH, GFR #### Cleopatra [address] [address] Basophils/100 WBC (Bld) 1.2 % Normal 0.0-2.5 [facility] ([place] Comment on above: Performed By: #### L IPID, VIDH, CMP, TSH, GFR #### [address] [address] Eosinophil, Absolute 0.1 10 3/mcL Normal 0.0-0.4 [facility] ([place] Comment on above: Performed By: #### L IPID, VIDH, CMP, TSH, GFR #### [address] [address] Eosinophils/100 WBC (Bld) 0.5 % Normal 0.0-7.0 [facility] ([place]) Comment on above: Performed By: #### L IPID, VIDH, CMP, TSH, GFR #### [address] [address] Lymphocyte, Absolute 6.0 10 3/mcL High 0.8-3.9 [facility] ([place] Comment on above: Performed By: #### L IPID, VIDH, CMP, TSH, GFR #### [address] [address] Lymphocytes/100 WBC (Bld) 58.6 % High 10.0-50.0 [facility] ([place]) Comment on above: Performed By: #### L IPID, VIDH, CMP, TSH, GFR #### [address] [address] Monocyte, Absolute 0.6 10 3/mcL Normal 0.2-1.0 [facility] ([place] Comment on above: Performed By: #### L IPID, VIDH, CMP, TSH, GFR #### [address] [address] Monocytes/100 WBC (Bld) 6.1 % Normal 1.7-13.0 [facility] ([place] Comment on above: Performed By: #### L IPID, VIDH, CMP, TSH, GFR #### [address] [address] Neutrophils/100 WBC (Bld) 33.6 % Low 37.0-80.0 [facility] ([place]) Comment on above: Performed By: #### L IPID, VIDH, CMP, TSH, GFR #### [address] [address] .GFRon 10-04-2023 GFR 113 ml/min/1.73sqm Normal [facility] ([place] Comment on above: Result Comment: GFR Population mean for , Non- Americans Ages 20-29 = 116 mL/min/1.73 sq.m. Ages 30-39 = 107 mL/min/1.73 sq.m. Ages 40-49 = 99 mL/min/1.73 sq.m. Ages 50-59 = 93 mL/min/1.73 sq.m. Ages 60-69 = 85 mL/min/1.73 sq.m. Ages 70+ = 75 mL/min/1.73 sq.m. Chronic Kidney Disease: Less than 60 mL/min/1.73 square meters End Stage Renal Disease: Less than 15 mL/min/1.73 square meters Performed By: #### L IPID, VIDH, CMP, TSH, GFR #### [address] [address] GFR Non- 93 ml/min/1.73sqm Normal [facility] ([place]) Comment on above: Result Comment: GFR Population mean for , Non- Americans Ages 20-29 = 116 mL/min/1.73 sq.m. Ages 30-39 = 107 mL/min/1.73 sq.m. Ages 40-49 = 99 mL/min/1.73 sq.m. Ages 50-59 = 93 mL/min/1.73 sq.m. Ages 60-69 = 85 mL/min/1.73 sq.m. Ages 70+ = 75 mL/min/1.73 sq.m. Chronic Kidney Disease: Less than 60 mL/min/1.73 square meters End Stage Renal Disease: Less than 15 mL/min/1.73 square meters Performed By: #### L IPID, VIDH, CMP, TSH, GFR #### [address] [address] .MDWon 10-04-2023 Monocyte Distribution Width 20.45 High 0.00-20.00 [facility] ([place] Comment on above: Result Comment: For adults in ED, MDW>20.0 may be associated with a higher risk of sepsis during the first 12hrs of hospital admission The predictive value of MDW for identifying sepsis in patients with hematological abnormalities has not been established Performed By: #### L IPID, VIDH, CMP, TSH, GFR #### [address] [place] [address] .Manual Diffon 10-04-2023 Bands 1.0 % Normal 0.0-5.0 [facility] [place] Comment on above: Performed By: #### L IPID, VIDH, CMP, TSH, GFR #### [address] [place] [address] Basophil %, Manual 0.0 % Normal 0.0-2.5 [facility] [place] Comment [place] above: Performed By: #### L IPID, VIDH, CMP, TSH, GFR #### [address] [place] [address] Basophil, Abs Manual 0.0 10 3/mcL Normal 0.0-0.2 [facility] ([place] Comment on above: Performed By: #### L IPID, VIDH, CMP, TSH, GFR #### [address] [place] [address] Eosinophil %, Manual 0.0 % Normal 0.0-7.0 [facility] [place] Comment on above: Performed By: #### L IPID, VIDH, CMP, TSH, GFR #### [address] [place] [address] Eosinophil, Abs Manual 0.0 10 3/mcL Normal 0.0-0.4 [facility] ([place] Comment on above: Performed By: #### L IPID, VIDH, CMP, TSH, GFR #### [address] [place] [address] Lymphocyte %, Manual 63.0 % High 10.0-50.0 [facility] ([place] Comment on above: Performed By: #### L IPID, VIDH, CMP, TSH, GFR #### [address] [address] Lymphocyte, Abs Manual 6.4 10 3/mcL High 0.8-3.9 [facility] ([place] Comment on above: Performed By: #### L IPID, VIDH, CMP, TSH, GFR #### [address] [address] Monocyte %, Manual 3.0 % Normal 1.7-13.0 [facility] [place] Comment [place]: Performed By: #### L IPID, VIDH, CMP, TSH, GFR #### [address] [address] Monocyte, Abs Manual 0.3 10 3/mcL Normal 0.2-1.0 [facility] ([place] Comment on above: Performed By: #### L IPID, VIDH, CMP, TSH, GFR #### [address] [address] Neutrophil %, Manual 33.0 % Low 37.0-80.0 [facility] ([place] Comment on above: Performed By: #### L IPID, VIDH, CMP, TSH, GFR #### [address] [address] Neutrophil, Abs Manual 3.4 10 3/mcL Normal 2.9-6.2 [facility] ([place] Comment on above: Performed By: #### L IPID, VIDH, CMP, TSH, GFR #### [address] [address] Nucleated RBC 0.0 /100 WBC Normal [facility] [place] Comment on above: Performed By: #### L IPID, VIDH, CMP, TSH, GFR #### [address] [address] .Morphon 10-04-2023 Platelet Estimate Normal Normal [facility] [place] Comment on above: Performed By: #### L IPID, VIDH, CMP, TSH, GFR #### [address] [address] .NEUABSon 10-04-2023 Neutrophil, Absolute 3.4 10 3/mcL Normal 2.9-6.2 [facility] [place] Comment on above: Performed By: #### L IPID, VIDH, CMP, TSH, GFR #### [address] [address] CBCon 10-04-2023 Erythrocyte distribution width (RBC) [Ratio] 14.6 % High 11.5-14.5 [facility] [place] Comment on above: Performed By: #### L IPID, VIDH, CMP, TSH, GFR #### [address] [place] [address] Hematocrit (Bld) [Volume fraction] 34.9 % Low 37.0-47.0 [facility] [place] Comment on above: Performed By: #### L IPID, VIDH, CMP, TSH, GFR #### [address] [place] [address] Hgb 12.1 G/dL Normal 12.0-16.0 [facility] [place] Comment on above: Performed By: #### L IPID, VIDH, CMP, TSH, GFR #### [address] [place] [address] MCH (RBC) [Entitic mass] 30.2 pg Normal 27.0-31.2 [facility] [place] Comment on above: Performed By: #### L IPID, VIDH, CMP, TSH, GFR #### [address] [place] [address] MCHC 34.5 G/dL Normal 33.0-37.0 [facility] [place] Comment on above: Performed By: #### L IPID, VIDH, CMP, TSH, GFR #### [address] [place] [address] MCV (RBC) [Entitic vol] 87.5 fL Normal 80.0-94.0 [facility] [place] Comment on above: Performed By: #### L IPID, VIDH, CMP, TSH, GFR #### [address] [address] Platelet 260 10 3/mcL Normal 130-400 [facility] [place] Comment on above: Performed By: #### L IPID, VIDH, CMP, TSH, GFR #### [address] [address] Platelet mean volume (Bld) [Entitic vol] 8.0 fL Normal 7.4-10.4 [facility] [place] Comment on above: Performed By: #### L IPID, VIDH, CMP, TSH, GFR #### [address] [address] RBC 3.99 10 6/mcL Low 4.20-5.40 [facility] [place] Comment on above: Performed By: #### L IPID, VIDH, CMP, TSH, GFR #### [address] [address] WBC 10.2 10 3/mcL Normal 4.6-10.8 [facility] [place] Comment on above: Performed By: #### L IPID, VIDH, CMP, TSH, GFR #### [address] [address] CMPon 10-04-2023 Albumin Level 4.0 G/dL Normal 3.4-4.8 [facility] ([place] Comment on above: Performed By: #### L IPID, VIDH, CMP, TSH, GFR #### [address] [address] Albumin/Globulin [Mass ratio] 1.4 {ratio} Normal 1.1-2.5 [facility] ([place] Comment on above: Performed By: #### L IPID, VIDH, CMP, TSH, GFR #### [address] [address] ALP [Catalytic activity/Vol] 88 U/L Normal 40-135 [facility] [place] Comment on above: Performed By: #### L IPID, VIDH, CMP, TSH, GFR #### [address] [address] ALT [Catalytic activity/Vol] 25 U/L Normal 14-59 [facility] [place] Comment on above: Performed By: #### L IPID, VIDH, CMP, TSH, GFR #### [address] [address] AST [Catalytic activity/Vol] 21 U/L Normal 10-40 [facility] [place] Comment on above: Performed By: #### L IPID, VIDH, CMP, TSH, GFR #### [address] [address] Bili Total 0.5 mg/dL Normal 0.2-1.0 [facility] ([place] Comment on above: Result Comment: Use of this assay is not recommended for patients undergoing treatment with eltrombopag due to the potential for falsely elevated results. Performed By: #### L IPID, VIDH, CMP, TSH, GFR #### [address] [address] BUN/Creatinine Ratio 20 ratio Normal 7-27 [facility] ([place] Comment on above: Performed By: #### L IPID, VIDH, CMP, TSH, GFR #### [address] [address] Calcium [Mass/Vol] 9.2 mg/dL Normal 8.4-10.2 [facility] [place] Comment [place]: Performed By: #### L IPID, VIDH, CMP, TSH, GFR #### [address] [address] Chloride [Moles/Vol] 98 mmol/L Normal 98-107 [facility] ([place] Comment on above: Performed By: #### L IPID, VIDH, CMP, TSH, GFR #### [address] [address] CO2 [Moles/Vol] 32 mmol/L High 23-31 [facility] [place] Comment on above: Performed By: #### L IPID, VIDH, CMP, TSH, GFR #### [address] [address] Creatinine [Mass/Vol] 0.61 mg/dL Normal 0.55-1.02 [facility] ([place] Comment on above: Performed By: #### L IPID, VIDH, CMP, TSH, GFR #### [address] [address] Electrolyte Balance 7.0 mEq/L Normal 4.0-15.0 [facility] [place] Comment on above: Performed By: #### L IPID, VIDH, CMP, TSH, GFR #### [address] [address] Globulin 2.9 G/dL Normal [facility] [place] Comment on above: Performed By: #### L IPID, VIDH, CMP, TSH, GFR #### [address] [address] Glucose [Mass/Vol] 85 mg/dL Normal 83-110 [facility] [place] Comment [place]: Performed By: #### L IPID, VIDH, CMP, TSH, GFR #### [address] [address] Potassium [Moles/Vol] 4.0 mmol/L Normal 3.5-5.1 [facility] ([place] Comment on above: Performed By: #### L IPID, VIDH, CMP, TSH, GFR #### [address] [address] Sodium [Moles/Vol] 137 mmol/L Normal 136-145 [facility] [place] Comment [place] above: Performed By: #### L IPID, VIDH, CMP, TSH, GFR #### [address] [address] Total Protein 6.9 G/dL Normal 6.4-8.2 [facility] [place] Comment on above: Performed By: #### L IPID, VIDH, CMP, TSH, GFR #### [address] [address] Urea nitrogen [Mass/Vol] 12 mg/dL Normal 7-18 [facility] ([place] Comment on above: Performed By: #### L IPID, VIDH, CMP, TSH, GFR #### [id number] [place], [place] [address] CT ABD/PELVIS W/ IV CONTRAST ONLYon 10-04-2023 CT ABD/PELVIS W/ IV CONTRAST ONLY ORIGINAL EXAMINATION: CT OF THE ABDOMEN AND PELVIS WITH CONTRAST 10/04/2023 11:51 am TECHNIQUE: CT of the abdomen and pelvis was performed with the administration of intravenous contrast. Multiplanar reformatted images are provided for review. Automated exposure control, iterative reconstruction, and/or weight based adjustment of the mA/kV was utilized to reduce the radiation dose to as low as reasonably achievable. COMPARISON: September 24, 2023 HISTORY: ORDERING SYSTEM PROVIDED HISTORY: Reason for Exam: abdominal pain FINDINGS: There is some compression deformity of the superior L3 endplate, a stable finding since the previous exam. There is interval but age indeterminate mild superior L4 endplate compression. Degenerative changes are noted in the spine. No definite acute osseous abnormality seen. Small areas of scarring are visible at the lung bases. A subcentimeter cyst is noted in the spleen. The liver and spleen are otherwise unremarkable. The adrenal glands and pancreas appear normal. No focal kidney abnormality is evident. No adenopathy, free air or free fluid is evident. The urinary bladder is unremarkable. No GI tract abnormality seen. No additional contributory abnormality. IMPRESSION: No acute abnormality identified. Interval but age-indeterminate loss of height at the superior L4 endplate. Interpreted by: Nii Carmen MD Preliminary Report By: Nii Carmen MD Electronically signed By Nii Carmen MD Dictated Date: 10/04/2023 12:03:17 PM Prelim Date: 10/04/2023 12:06:02 PM Sign Date: 10/04/2023 12:06:02 PM Ordering Provider: LEONARDO Nunez [facility]) LABORATORYOrdered By: SYSTEM SYSTEM on 10-04-2023 Albumin BCP dye [Mass/Vol] 4.0 G/dL Normal 3.4 - 4.8 G/dL AO ADM SS Albumin/Globulin [Mass ratio] 1.4 {ratio} Normal 1.1 - 2.5 ratio AO ADM SS ALP [Catalytic activity/Vol] 88 U/L Normal 40 - 135 U/L AO ADM SS ALT With P-5'-P [Catalytic activity/Vol] 25 U/L Normal 14 - 59 U/L AO ADM SS AST With P-5'-P [Catalytic activity/Vol] 21 U/L Normal 10 - 40 U/L AO ADM SS Bands 1.0 % Normal 0.0 - 5.0 % AO Workflow SS Basophil %, Manual 0.0 % Normal 0.0 - 2.5 % AO Workflow SS Basophil, Abs Manual 0.0 103/mcL Normal 0.0 - 0.2 10^3/mcL AO Workflow SS Basophil, Absolute 0.1 103/mcL Normal 0.0 - 0.2 10^3/mcL AO Workflow SS Basophils/100 WBC (Bld) 1.2 % Normal 0.0 - 2.5 % AO Workflow SS Bilirubin [Mass/Vol] 0.5 mg/dL Normal 0.2 - 1.0 mg/dL AO ADM SS Comment on above: Interpretive Data: U se of this assay is not recommended for patients undergoing treatment with eltrombopag due to the potential for falsely elevated results. Calcium [Mass/Vol] 9.2 mg/dL Normal 8.4 - 10. 2 mg/dL AO ADM SS Chloride [Moles/Vol] 98 mmol/L Normal 98 - 107 mmol/L AO ADM SS CO2 [Moles/Vol] 32 mmol/L High 23 - 31 mmol/L AO ADM SS Creatinine [Mass/Vol] 0.61 mg/dL Normal 0.55 - 1.02 mg/dL AO ADM SS Electrolyte Balance 7.0 mEq/L Normal 4.0 - 15.0 mEq/L AO ADM SS Eosinophil %, Manual 0.0 % Normal 0.0 - 7.0 % AO Workflow SS Eosinophil, Absolute 0.1 103/mcL Normal 0.0 - 0.4 10^3/mcL AO Workflow SS Eosinophils (Bld) [#/Vol] 0.0 103/mcL Normal 0.0 - 0.4 10^3/mcL AO Workflow SS Eosinophils/100 WBC (Bld) 0.5 % Normal 0.0 - 7.0 % AO Workflow SS Erythrocyte distribution width (RBC) [Ratio] 14.6 % High 11.5 - 14.5 % AO Workflow SS GFR/1.73 sq M.predicted among blacks MDRD (S/P/Bld) [Vol rate/Area] 113 ml/min/1.73sqm Invalid Interpretation Code AO Chemistry S Comment on above: Interpretive Data: GFR Population mean for , Non- Americans Ages 20-29 = 116 mL/min/1.73 sq.m. Ages 30-39 = 107 mL/min/1.73 sq.m. Ages 40-49 = 99 mL/min/1.73 sq.m. Ages 50-59 = 93 mL/min/1.73 sq.m. Ages 60-69 = 85 mL/min/1.73 sq.m. Ages 70+ = 75 mL/min/1.73 sq.m. Chronic Kidney Disease: Less than 60 mL/min/1.73 square meters End Stage Renal Disease: Less than 15 mL/min/1.73 square meters GFR/1.73 sq M.predicted among non-blacks MDRD (S/P/Bld) [Vol rate/Area] 93 ml/min/1.73sqm Invalid Interpretation Code AO Chemistry S Comment on above: Interpretive Data: GFR Population mean for , Non- Americans Ages 20-29 = 116 mL/min/1.73 sq.m. Ages 30-39 = 107 mL/min/1.73 sq.m. Ages 40-49 = 99 mL/min/1.73 sq.m. Ages 50-59 = 93 mL/min/1.73 sq.m. Ages 60-69 = 85 mL/min/1.73 sq.m. Ages 70+ = 75 mL/min/1.73 sq.m. Chronic Kidney Disease: Less than 60 mL/min/1.73 square meters End Stage Renal Disease: Less than 15 mL/min/1.73 square meters Globulin 2.9 G/dL Invalid Interpretation Code AO ADM SS Glucose [Mass/Vol] 85 mg/dL Normal 83 - 110 mg/dL AO ADM SS Hematocrit (Bld) [Volume fraction] 34.9 % Low 37.0 - 47.0 % AO Workflow SS Hemoglobin (Bld) [Mass/Vol] 12.1 G/dL Normal 12.0 - 16.0 G/dL AO Workflow SS Lipase [Catalytic activity/Vol] 25 U/L Normal 16 - 77 U/L AO ADM SS Lymphocyte %, Manual 63.0 % High 10.0 - 50.0 % AO Workflow SS Lymphocyte, Abs Manual 6.4 103/mcL High 0.8 - 3.9 10^3/mcL AO Workflow SS Lymphocyte, Absolute 6.0 103/mcL High 0.8 - 3.9 10^3/mcL AO Workflow SS Lymphocytes/100 WBC (Bld) 58.6 % High 10.0 - 50.0 % AO Workflow SS MCH (RBC) [Entitic mass] 30.2 pg Normal 27.0 - 31.2 pg AO Workflow SS MCHC 34.5 G/dL Normal 33.0 - 37.0 G/dL AO Workflow SS MCV (RBC) [Entitic vol] 87.5 fL Normal 80.0 - 94.0 fL AO Workflow SS Monocyte %, Manual 3.0 % Normal 1.7 - 13. 0 % AO Workflow SS Monocyte distribution width Auto (Bld) [Entitic vol] 20.45 1 High 0.00 - 20.00 AO Workflow SS Comment on above: Result Comment: For adults in ED, MDW>20.0 may be associated with a higher risk of sepsis during the first 12hrs of hospital admission The predictive value of MDW for identifying sepsis in patients with hematological abnormalities has not been established Monocyte, Abs Manual 0.3 103/mcL Normal 0.2 - 1.0 10^3/mcL AO Workflow SS Monocyte, Absolute 0.6 103/mcL Normal 0.2 - 1.0 10^3/mcL AO Workflow SS Monocytes/100 WBC (Bld) 6.1 % Normal 1.7 - 13.0 % AO Workflow SS Neutrophil %, Manual 33.0 % Low 37.0 - 80.0 % AO Workflow SS Neutrophil, Abs Manual 3.4 103/mcL Normal 2.9 - 6.2 10^3/mcL AO Workflow SS Neutrophil, Absolute 3.4 103/mcL Normal 2.9 - 6.2 10^3/mcL AO Workflow SS Neutrophils/100 WBC (Bld) 33.6 % Low 37.0 - 80.0 % AO Workflow SS Nucleated RBC 0.0 /100 WBC Invalid Interpretation Code AO Workflow SS Platelet Estimate Normal *NA* (10/04/23 10:38 AM) Invalid Interpretation Code AO Workflow SS Platelet mean volume (Bld) [Entitic vol] 8.0 fL Normal 7.4 - 10.4 fL AO Workflow SS Platelets (Bld) [#/Vol] 260 103/mcL Normal 130 - 400 10^3/mcL AO Workflow SS Potassium [Moles/Vol] 4.0 mmol/L Normal 3.5 - 5.1 mmol/L AO ADM SS Protein [Mass/Vol] 6.9 G/dL Normal 6.4 - 8.2 G/dL AO ADM SS RBC (Bld) [#/Vol] 3.99 106/mcL Low 4.20 - 5.40 10^6/mcL AO Workflow SS Sodium [Moles/Vol] 137 mmol/L Normal 136 - 145 mmol/L AO ADM SS Urea nitrogen [Mass/Vol] 12 mg/dL Normal 7 - 18 mg/dL AO ADM SS Urea nitrogen/Creatinin e [Mass ratio] 20 ratio Normal 7 - 27 ratio AO ADM SS WBC (Bld) [#/Vol] 10.2 103/mcL Normal 4.6 - 10.8 10^3/mcL AO Workflow SS LABORATORYOrdered By: Tran Limon on 10-04-2023 Appearance (U) Clear (10/04/23 10:38 AM) Normal Clear AO Auto Urine SS Bilirubin Ql (U) Negative (10/04/23 10:38 AM) Normal Negative AO Auto Urine SS Color (U) Yellow (10/04/23 10:38 AM) Normal AO Auto Urine SS Glucose Test strip (U) [Mass/Vol] Negative Normal Negative AO Auto Urine SS Hemoglobin Auto test strip (U) [Mass/Vol] Trace *ABN* (10/04/23 10:38 AM) Invalid Interpretation Code Negative AO Auto Urine SS Ketones Ql (U) Negative Normal Negative AO Auto Urine SS UA Leuk Est Negative (10/04/23 10:38 AM) Normal Negative AO Auto Urine SS UA Nitrite Negative (10/04/23 10:38 AM) Normal Negative AO Auto Urine SS UA pH 7.0 (10/04/23 10:38 AM) Normal 5.0 - 8.0 AO Auto Urine SS UA Protein Negative Normal Negative AO Auto Urine SS UA Spec Grav 1.015 (10/04/23 10:38 AM) Normal 1.015-1.02 5 AO Auto Urine SS UA Specimen Type Clean Catch (10/04/23 10:38 AM) Normal AO Auto Urine SS UA Urobilinogen 0.2 E.U./dL Normal 0.2-1.0 AO Auto Urine SS LIPon 10-04-2023 Lipase Level 25 U/L Normal 16-77 [facility] ([place] Comment on above: Performed By: #### L IPID, VIDH, CMP, TSH, GFR #### [place] [address] [address] UAon 10-04-2023 Color (U) Yellow Normal [facility] ([place] Comment on above: Performed By: #### U A #### [place] [address] [address] Glucose (U) [Mass/Vol] Negative Normal Negative [facility] ([place] Comment on above: Performed By: #### U A #### [address] [address] Ketones Ql (U) Negative Normal Negative [facility] ([place] Comment on above: Performed By: #### U A #### [address] [address] UA Appear Clear Normal Clear [facility] ([place] Comment on above: Performed By: #### U A #### [address] [address] UA Blood Trace Abnormal Negative [facility] ([place] Comment on above: Performed By: #### U A #### [address] [address] UA Leuk Est Negative Normal Negative [facility] ([place] Comment on above: Performed By: #### U A #### [address] [address] UA Nitrite Negative Normal Negative [facility] ([place] Comment on above: Performed By: #### U A #### [address] [address] UA pH 7.0 Normal 5.0 - 8.0 [facility] ([place] Comment on above: Performed By: #### U A #### [address] [address] UA Protein Negative Normal Negative [facility] ([place] Comment on above: Performed By: #### U A #### [address] [address] UA Spec Grav 1.015 Normal 1.015-1.02 5 [facility] ([place] Comment on above: Performed By: #### U A #### [address] [address] UA Specimen Type Clean Catch Normal [facility] ([place] Comment on above: Performed By: #### U A #### [address] [address] UA Urobilinogen 0.2 E.U./dL Normal 0.2-1.0 [facility] ([place] Comment on above: Performed By: #### U A #### [address] [address] Urobilinogen (U) [Mass/Vol] Negative Normal Negative [facility] ([place] Comment on above: Performed By: #### U A #### [address] [address] .GFRon 09-28-2023 GFR 92 ml/min/1.73sqm Normal [facility] ([place] Comment on above: Result Comment: GFR Population mean for , Non- Americans Ages 20-29 = 116 mL/min/1.73 sq.m. Ages 30-39 = 107 mL/min/1.73 sq.m. Ages 40-49 = 99 mL/min/1.73 sq.m. Ages 50-59 = 93 mL/min/1.73 sq.m. Ages 60-69 = 85 mL/min/1.73 sq.m. Ages 70+ = 75 mL/min/1.73 sq.m. Chronic Kidney Disease: Less than 60 mL/min/1.73 square meters End Stage Renal Disease: Less than 15 mL/min/1.73 square meters Performed By: #### L IPID, VIDH, CMP, TSH, GFR #### [address] [address] GFR Non- 76 ml/min/1.73sqm Normal [facility] ([place] Comment on above: Result Comment: GFR Population mean for , Non- Americans Ages 20-29 = 116 mL/min/1.73 sq.m. Ages 30-39 = 107 mL/min/1.73 sq.m. Ages 40-49 = 99 mL/min/1.73 sq.m. Ages 50-59 = 93 mL/min/1.73 sq.m. Ages 60-69 = 85 mL/min/1.73 sq.m. Ages 70+ = 75 mL/min/1.73 sq.m. Chronic Kidney Disease: Less than 60 mL/min/1.73 square meters End Stage Renal Disease: Less than 15 mL/min/1.73 square meters Performed By: #### L IPID, VIDH, CMP, TSH, GFR #### [address] [address] BMPon 09-28-2023 BUN/Creatinine Ratio 14 ratio Normal 7-27 [facility] ([place] Comment on above: Performed By: #### B MP, TSH, GFR #### [address] [address] Calcium [Mass/Vol] 9.2 mg/dL Normal 8.4-10.2 [facility] [place] Comment on above: Performed By: #### B MP, TSH, GFR #### [address] [address] Chloride [Moles/Vol] 101 mmol/L Normal 98-107 [facility] ([place] Comment on above: Performed By: #### B MP, TSH, GFR #### [address] [address] CO2 [Moles/Vol] 30 mmol/L Normal 23-31 [facility] ([place] Comment on above: Performed By: #### B MP, TSH, GFR #### [address] [address] Creatinine [Mass/Vol] 0.73 mg/dL Normal 0.55-1.02 [facility] ([place] Comment on above: Performed By: #### B MP, TSH, GFR #### [address] [address] Electrolyte Balance 6.0 mEq/L Normal 4.0-15.0 [facility] ([place] Comment on above: Performed By: #### B MP, TSH, GFR #### [address] [address] Glucose [Mass/Vol] 91 mg/dL Normal 83-110 [facility] [place] Comment on above: Performed By: #### B MP, TSH, GFR #### [address] [address] Potassium [Moles/Vol] 4.8 mmol/L Normal 3.5-5.1 [facility] ([place] Comment on above: Performed By: #### B MP, TSH, GFR #### [address] [address] Sodium [Moles/Vol] 137 mmol/L Normal 136-145 [facility] [place] Comment on above: Performed By: #### B MP, TSH, GFR #### [address] [address] Urea nitrogen [Mass/Vol] 10 mg/dL Normal 7-18 [facility] ([place] Comment on above: Performed By: #### B MP, TSH, GFR #### [address] [address] TSHon 09-28-2023 TSH Qn 0.45 m[IU]/L Normal 0.36-3.74 [facility] ([place] Comment on above: Performed By: #### B MP, TSH, GFR #### [address] [address] [address] ABDOMEN/PELVIS W/O CONTRA STon 09-27-2023 CT ABDOMEN/PELVIS W/O CONTRAST ORIGINAL EXAMINATION: CT OF THE ABDOMEN AND PELVIS WITHOUT CONTRAST 09/24/2023 9:55 am TECHNIQUE: CT of the abdomen and pelvis was performed without the administration of intravenous contrast. Multiplanar reformatted images are provided for review. Automated exposure control, iterative reconstruction, and/or weight based adjustment of the mA/kV was utilized to reduce the radiation dose to as low as reasonably achievable. COMPARISON: CT abdomen pelvis 07/04/2021, hip radiograph 09/09/2023 HISTORY: ORDERING SYSTEM PROVIDED HISTORY: Reason for Exam: left flank pain FINDINGS: Compression of the L3 vertebral body, which was suspected on prior pelvic radiograph. There is up to 50% height loss. Grade 1 anterolisthesis at L4-L5. Degenerative changes of the spine. Bibasilar atelectasis. No pleural or pericardial effusion. The unenhanced liver, spleen,, and adrenal glands are unremarkable. Small calcification in the pancreatic tail may represent sequela of prior insult. The unenhanced kidneys demonstrate no acute abnormalities. No urolithiasis. Mild left-sided pelvicaliectasis, which appears new from prior. The bladder is unremarkable. No adnexal masses. Pelvic phleboliths. Small hiatal hernia. The small bowel and colon are unremarkable. The appendix is not definitively identified, however no pericecal inflammation is seen. Atherosclerotic nonaneurysmal aorta. No pathologically enlarged lymph nodes are identified. No free intraperitoneal air or fluid. Tiny fat containing right inguinal hernia. IMPRESSION: Mild left-sided hydronephrosis, which appears new from prior, with no visualized obstruction. This can be seen with a recently passed stone or nonvisualized obstruction. Vesicoureteral reflux is also considered. Follow-up with urinalysis as clinically indicated. L3 compression deformity, which was also seen on prior 09/09/2023 radiograph. I have personally reviewed the images of this examination and agree with the resident's findings and interpretation. Interpreted by: Nii Carmen MD Preliminary Report By: Govind Mckee Electronically signed By Nii Carmen MD Dictated Date: 09/27/2023 8:03:16 AM Prelim Date: 09/27/2023 10:30:24 AM Sign Date: 09/27/2023 10:30:24 AM Ordering Provider: LEONARDO Nunez [facility] ([place] XR HIP 2-3 VIEWS LEFTon 04-0 XR HIP 2-3 VIEWS LEFT ORIGINAL EXAMINATION: 2 XRAY VIEWS OF THE LEFT HIP 09/09/2023 3:31 pm COMPARISON: None. HISTORY: ORDERING SYSTEM PROVIDED HISTORY: Reason for Exam: L hip/lower back pain FINDINGS: No acute fracture or dislocation is identified. [id number] degenerative changes seen of the left hip. Sclerosis seen of the symphysis pubis. There is no radiopaque foreign body. Degenerative changes seen in the visualized lumbar spine. IMPRESSION: Degenerative changes. No visualized fracture. Interpreted by: Deric Caldwell MD Preliminary Report By: Deric Caldwell MD Electronically signed By Deric Caldwell MD Dictated Date: 09/10/2023 3:51:05 PM Prelim Date: 09/10/2023 3:52:33 PM Sign Date: 09/10/2023 3:52:33 PM Ordering Provider: GALE MARROQUIN [facility] ([place] XR PELVIS 1 OR 2 VIEWSon XR PELVIS 1 OR 2 VIEWS ORIGINAL EXAMINATION: ONE XRAY VIEW OF THE PELVIS09/09/2023 3:32 pm COMPARISON: None. HISTORY: ORDERING SYSTEM PROVIDED HISTORY: Reason for Exam: L hip/lower back pain FINDINGS: The pelvic ring is intact. No acute fracture or dislocation is identified. Moderate degenerative changes seen of the hips. The sacrum is obscured by overlapping stool and bowel gas. Levoconvex curvature seen of the spine. Moderate compression deformity suspected of L3. There is no radiopaque foreign body. IMPRESSION: Suspected L3 compression deformity. Correlate with radiographs of the lumbar spine Degenerative changes Interpreted by: Deric Caldwell MD Preliminary Report By: Deric Caldwell MD Electronically signed By Deric Caldwell MD Dictated Date: 09/10/2023 3:49:38 PM Prelim Date: 09/10/2023 3:50:59 PM Sign Date: 09/10/2023 3:50:59 PM Ordering Provider: GALE MARROQUIN [facility] ([place] LABORATORYOrdered By: Anna Felix on 08-03-2023 Albumin DL <= 20 mg/L (U) [Mass/Vol] mcg/dL Invalid Interpretation Code AO ADM SS Albumin/Creatinine DL <= 20 mg/L (U) [Mass ratio] unable to calc Invalid Interpretation Code 0 - 30 AO Chemistry S Creatinine (U) [Mass/Vol] mg/dL Low 28.0 - 117.0 mg/dL AO ADM SS MALBRon 08-03-2023 U Creatinine <13.0 Low 28.0-117.0 [facility] ([place] Comment on above: Performed By: #### M ALBR #### [id number] [place], [place] [address] U Microalb <130 Normal [facility] ([place] Comment on above: Performed By: #### M ALBR #### [id number] [place], [place] [address] U Ratio Alb/Cre unable to calc Normal 0-30 [facility] ([place]) Comment on above: Performed By: #### M ALBR #### [address] [address] .GFRon 05-13-2023 GFR Non- 63 ml/min/1.73sqm Normal [facility] ([place] Comment on above: Result Comment: GFR Population mean for , Non- Americans Ages 20-29 = 116 mL/min/1.73 sq.m. Ages 30-39 = 107 mL/min/1.73 sq.m. Ages 40-49 = 99 mL/min/1.73 sq.m. Ages 50-59 = 93 mL/min/1.73 sq.m. Ages 60-69 = 85 mL/min/1.73 sq.m. Ages 70+ = 75 mL/min/1.73 sq.m. Chronic Kidney Disease: Less than 60 mL/min/1.73 square meters End Stage Renal Disease: Less than 15 mL/min/1.73 square meters Performed By: #### L IPID, VIDH, CMP, TSH, GFR #### [address] [address] GFR 76 ml/min/1.73sqm Normal [facility] ([place] Comment on above: Result Comment: GFR Population mean for , Non- Americans Ages 20-29 = 116 mL/min/1.73 sq.m. Ages 30-39 = 107 mL/min/1.73 sq.m. Ages 40-49 = 99 mL/min/1.73 sq.m. Ages 50-59 = 93 mL/min/1.73 sq.m. Ages 60-69 = 85 mL/min/1.73 sq.m. Ages 70+ = 75 mL/min/1.73 sq.m. Chronic Kidney Disease: Less than 60 mL/min/1.73 square meters End Stage Renal Disease: Less than 15 mL/min/1.73 square meters Performed By: #### L IPID, VIDH, CMP, TSH, GFR #### [address] [address] CMPon 05-13-2023 Albumin Level 3.4 G/dL Normal 3.4-4.8 [facility] ([place] Comment on above: Performed By: #### L IPID, VIDH, CMP, TSH, GFR #### [address] [address] Albumin/Globulin [Mass ratio] 1.3 {ratio} Normal 1.1-2.5 [facility] ([place] Comment on above: Performed By: #### L IPID, VIDH, CMP, TSH, GFR #### [address] [address] ALP [Catalytic activity/Vol] 66 U/L Normal 40-135 [facility] ([place] Comment on above: Performed By: #### L IPID, VIDH, CMP, TSH, GFR #### [address] [address] ALT [Catalytic activity/Vol] 21 U/L Normal 14-59 [facility] ([place] Comment on above: Performed By: #### L IPID, VIDH, CMP, TSH, GFR #### [address] [address] AST [Catalytic activity/Vol] 23 U/L Normal 10-40 [facility] ([place] Comment on above: Performed By: #### L IPID, VIDH, CMP, TSH, GFR #### [address] [address] Bili Total 0.4 mg/dL Normal 0.2-1.0 [facility] ([place] Comment on above: Result Comment: Use of this assay is not recommended for patients undergoing treatment with eltrombopag due to the potential for falsely elevated results. Performed By: #### L IPID, VIDH, CMP, TSH, GFR #### [address] [address] BUN/Creatinine Ratio 22 ratio Normal 7-27 [facility] ([place] Comment on above: Performed By: #### L IPID, VIDH, CMP, TSH, GFR #### [address] [address] Calcium [Mass/Vol] 8.9 mg/dL Normal 8.4-10.2 [facility] [place] Comment on above: Performed By: #### L IPID, VIDH, CMP, TSH, GFR #### [address] [address] Chloride [Moles/Vol] 99 mmol/L Normal 98-107 [facility] ([place] Comment on above: Performed By: #### L IPID, VIDH, CMP, TSH, GFR #### [place] [address] CO2 [Moles/Vol] 26 mmol/L Normal 23-31 [facility] ([place] Comment on above: Performed By: #### L IPID, VIDH, CMP, TSH, GFR #### [address] [address] Creatinine [Mass/Vol] 0.86 mg/dL Normal 0.55-1.02 [facility] ([place] Comment on above: Performed By: #### L IPID, VIDH, CMP, TSH, GFR #### [address] [address] Electrolyte Balance 8.0 mEq/L Normal 4.0-15.0 [facility] ([place] Comment on above: Performed By: #### L IPID, VIDH, CMP, TSH, GFR #### [address] [address] Globulin 2.7 G/dL Normal [facility] ([place] Comment on above: Performed By: #### L IPID, VIDH, CMP, TSH, GFR #### [place] [address] Glucose [Mass/Vol] 104 mg/dL Normal 83-110 [facility] [place] Comment on above: Performed By: #### L IPID, VIDH, CMP, TSH, GFR #### [address] [address] Potassium [Moles/Vol] 4.4 mmol/L Normal 3.5-5.1 [facility] ([place] Comment on above: Performed By: #### L IPID, VIDH, CMP, TSH, GFR #### [address] [address] Sodium [Moles/Vol] 133 mmol/L Low 136-145 [facility] [place] Comment on above: Performed By: #### L IPID, VIDH, CMP, TSH, GFR #### [address] [address] Total Protein 6.1 G/dL Low 6.4-8.2 [facility] ([place] Comment on above: Performed By: #### L IPID, VIDH, CMP, TSH, GFR #### [address] [address] Urea nitrogen [Mass/Vol] 19 mg/dL High 7-18 [facility] ([place] Comment on above: Performed By: #### L IPID, VIDH, CMP, TSH, GFR #### [address] [address] LABORATORYOrdered By: SYSTEM SYSTEM on 05-13-2023 25-hydroxyvitamin D3 [Mass/Vol] 69.7 ng/mL Invalid Interpretation Code AO ADM SS Comment on above: Interpretive Data: I nterpretive Values Based on Total 25(OH) Vitamin D: Deficient <20 ng/mL Insufficient 20 - <30 ng/mL Sufficient 30-100 ng/mL Albumin BCP dye [Mass/Vol] 3.4 G/dL Normal 3.4 - 4.8 G/dL AO ADM SS Albumin/Globulin [Mass ratio] 1.3 {ratio} Normal 1.1 - 2.5 ratio AO ADM SS ALP [Catalytic activity/Vol] 66 U/L Normal 40 - 135 U/L AO ADM SS ALT With P-5'-P [Catalytic activity/Vol] 21 U/L Normal 14 - 59 U/L AO ADM SS AST With P-5'-P [Catalytic activity/Vol] 23 U/L Normal 10 - 40 U/L AO ADM SS Bilirubin [Mass/Vol] 0.4 mg/dL Normal 0.2 - 1.0 mg/dL AO ADM SS Comment on above: Interpretive Data: U se of this assay is not recommended for patients undergoing treatment with eltrombopag due to the potential for falsely elevated results. Calcium [Mass/Vol] 8.9 mg/dL Normal 8.4 - 10. 2 mg/dL AO ADM SS Chloride [Moles/Vol] 99 mmol/L Normal 98 - 107 mmol/L AO ADM SS CO2 [Moles/Vol] 26 mmol/L Normal 23 - 31 mmol/L AO ADM SS Creatinine [Mass/Vol] 0.86 mg/dL Normal 0.55 - 1.02 mg/dL AO ADM SS Electrolyte Balance 8.0 mEq/L Normal 4.0 - 15.0 mEq/L AO ADM SS GFR/1.73 sq M.predicted among blacks MDRD (S/P/Bld) [Vol rate/Area] 76 ml/min/1.73sqm Invalid Interpretation Code AO Chemistry S Comment on above: Interpretive Data: GFR Population mean for , Non- Americans Ages 20-29 = 116 mL/min/1.73 sq.m. Ages 30-39 = 107 mL/min/1.73 sq.m. Ages 40-49 = 99 mL/min/1.73 sq.m. Ages 50-59 = 93 mL/min/1.73 sq.m. Ages 60-69 = 85 mL/min/1.73 sq.m. Ages 70+ = 75 mL/min/1.73 sq.m. Chronic Kidney Disease: Less than 60 mL/min/1.73 square meters End Stage Renal Disease: Less than 15 mL/min/1.73 square meters GFR/1.73 sq M.predicted among non-blacks MDRD (S/P/Bld) [Vol rate/Area] 63 ml/min/1.73sqm Invalid Interpretation Code AO Chemistry S Comment on above: Interpretive Data: GFR Population mean for , Non- Americans Ages 20-29 = 116 mL/min/1.73 sq.m. Ages 30-39 = 107 mL/min/1.73 sq.m. Ages 40-49 = 99 mL/min/1.73 sq.m. Ages 50-59 = 93 mL/min/1.73 sq.m. Ages 60-69 = 85 mL/min/1.73 sq.m. Ages 70+ = 75 mL/min/1.73 sq.m. Chronic Kidney Disease: Less than 60 mL/min/1.73 square meters End Stage Renal Disease: Less than 15 mL/min/1.73 square meters Globulin 2.7 G/dL Invalid Interpretation Code AO ADM SS Glucose [Mass/Vol] 104 mg/dL Normal 83 - 110 mg/dL AO ADM SS Potassium [Moles/Vol] 4.4 mmol/L Normal 3.5 - 5.1 mmol/L AO ADM SS Protein [Mass/Vol] 6.1 G/dL Low 6.4 - 8.2 G/dL AO ADM SS Sodium [Moles/Vol] 133 mmol/L Low 136 - 145 mmol/L AO ADM SS TSH Qn 3.84 m[IU]/L High 0.36 - 3.74 mcIU/mL AO ADM SS Urea nitrogen [Mass/Vol] 19 mg/dL High 7 - 18 mg/dL AO ADM SS Urea nitrogen/Creatinin e [Mass ratio] 22 ratio Normal 7 - 27 ratio AO ADM SS LABORATORYOrdered By: Candelaria Estes on 05-13-2023 Cholesterol [Mass/Vol] 217 mg/dL High 0 - 200 mg/dL AO ADM SS Comment on above: Interpretive Data: C holesterol Reference Interval: Less than 200 Desirable 200-239 Borderline high risk 240 and above High risk Cholesterol in HDL [Mass/Vol] 41 mg/dL Normal 40 - 60 mg/dL AO ADM SS Cholesterol in LDL [Mass/Vol] 156 mg/dL High 0 - 130 mg/dL AO ADM SS Triglyceride [Mass/Vol] 102 mg/dL Normal 0 - 150 mg/dL AO ADM SS Comment on above: Interpretive Data: T riglyceride Reference Interval: Less than 150 Normal 150-199 Borderline high risk 200-499 High risk 500 or higher Very high risk LIPIDon 05-13-2023 Cholesterol [Mass/Vol] 217 mg/dL High 0-200 [facility] Comment on above: Result Comment: Chol esterol Reference Interval: Less than 200 Desirable 200-239 Borderline high risk 240 and above High risk Performed By: #### L IPID, VIDH, CMP, TSH, GFR #### [place] [address] Cholesterol in HDL [Mass/Vol] 41 mg/dL Normal 40-60 [facility] ([place] Comment on above: Performed By: #### L IPID, VIDH, CMP, TSH, GFR #### [place] [address] Cholesterol in LDL [Mass/Vol] 156 mg/dL High 0-130 [facility] ([place] Comment on above: Performed By: #### L IPID, VIDH, CMP, TSH, GFR #### [place] [address] Triglyceride [Mass/Vol] 102 mg/dL Normal 0-150 [facility] Comment on above: Result Comment: Trig lyceride Reference Interval: Less than 150 Normal 150-199 Borderline high risk 200-499 High risk 500 or higher Very high risk Performed By: #### L IPID, VIDH, CMP, TSH, GFR #### [place] [address] TSHon 05-13-2023 TSH Qn 3.84 m[IU]/L High 0.36-3.74 [facility] ([place] Comment on above: Performed By: #### L IPID, VIDH, CMP, TSH, GFR #### [place] [id number] VIDHon 05-13-2023 Vit. D 25-Hydroxy 69.7 ng/mL Normal [facility] ([place] Comment on above: Result Comment: Inte rpretive Values Based on Total 25(OH) Vitamin D: Deficient <20 ng/mL Insufficient 20 - <30 ng/mL Sufficient 30-100 ng/mL Performed By: #### L IPID, VIDH, CMP, TSH, GFR #### [address] [address] .GFRon 05-08-2023 GFR 76 ml/min/1.73sqm Normal [facility] ([place] Comment on above: Result Comment: GFR Population mean for , Non- Americans Ages 20-29 = 116 mL/min/1.73 sq.m. Ages 30-39 = 107 mL/min/1.73 sq.m. Ages 40-49 = 99 mL/min/1.73 sq.m. Ages 50-59 = 93 mL/min/1.73 sq.m. Ages 60-69 = 85 mL/min/1.73 sq.m. Ages 70+ = 75 mL/min/1.73 sq.m. Chronic Kidney Disease: Less than 60 mL/min/1.73 square meters End Stage Renal Disease: Less than 15 mL/min/1.73 square meters Performed By: #### L IPID, VIDH, CMP, TSH, GFR #### [address] [address] GFR Non- 63 ml/min/1.73sqm Normal [facility] ([place]) Comment on above: Result Comment: GFR Population mean for , Non- Americans Ages 20-29 = 116 mL/min/1.73 sq.m. Ages 30-39 = 107 mL/min/1.73 sq.m. Ages 40-49 = 99 mL/min/1.73 sq.m. Ages 50-59 = 93 mL/min/1.73 sq.m. Ages 60-69 = 85 mL/min/1.73 sq.m. Ages 70+ = 75 mL/min/1.73 sq.m. Chronic Kidney Disease: Less than 60 mL/min/1.73 square meters End Stage Renal Disease: Less than 15 mL/min/1.73 square meters Performed By: #### L IPID, VIDH, CMP, TSH, GFR #### [address] [address] .MDWon 05-08-2023 Monocyte Distribution Width 34.01 High 0.00-20.00 [facility] ([place] Comment on above: Result Comment: The predictive value of MDW for identifying sepsis in patients with hematological abnormalities has not been established Performed By: #### L IPID, VIDH, CMP, TSH, GFR #### [address] [address] .Manual Diffon 05-08-2023 Basophil %, Manual 1.0 % Normal 0.0-2.5 [facility] [place] Comment on above: Performed By: #### L IPID, VIDH, CMP, TSH, GFR #### [place] [address] Basophil, Abs Manual 0.4 10 3/mcL High 0.0-0.2 [facility] ([place] Comment on above: Performed By: #### L IPID, VIDH, CMP, TSH, GFR #### [place] [address] Eosinophil %, Manual 0.0 % Normal 0.0-7.0 [facility] [place] Comment on above: Performed By: #### L IPID, VIDH, CMP, TSH, GFR #### [place] [address] Eosinophil, Abs Manual 0.0 10 3/mcL Normal 0.0-0.4 [facility] ([place] Comment on above: Performed By: #### L IPID, VIDH, CMP, TSH, GFR #### [place] [address] Lymphocyte %, Manual 92.0 % High 10.0-50.0 [facility] ([place] Comment on above: Performed By: #### L IPID, VIDH, CMP, TSH, GFR #### [place] [address] Lymphocyte, Abs Manual 35.8 10 3/mcL High 0.8-3.9 [facility] ([place] Comment on above: Performed By: #### L IPID, VIDH, CMP, TSH, GFR #### [place] [address] Monocyte %, Manual 1.0 % Low 1.7-13.0 [facility] [place] Comment on above: Performed By: #### L IPID, VIDH, CMP, TSH, GFR #### [address] [address] Monocyte, Abs Manual 0.4 10 3/mcL Normal 0.2-1.0 [facility] ([place] Comment on above: Performed By: #### L IPID, VIDH, CMP, TSH, GFR #### [address] [address] Neutrophil %, Manual 6.0 % Low 37.0-80.0 [facility] ([place] Comment on above: Performed By: #### L IPID, VIDH, CMP, TSH, GFR #### [place] [address] Neutrophil, Abs Manual 2.3 10 3/mcL Low 2.9-6.2 [facility] ([place] Comment on above: Performed By: #### L IPID, VIDH, CMP, TSH, GFR #### [place] [address] Nucleated RBC 0.0 /100 WBC Normal [facility] ([place] Comment on above: Performed By: #### L IPID, VIDH, CMP, TSH, GFR #### [address] [address] .Morphon 05-08-2023 Platelet Estimate Normal Normal [facility] ([place] Comment on above: Performed By: #### L IPID, VIDH, CMP, TSH, GFR #### [place] [address] CBCon 05-08-2023 Erythrocyte distribution width (RBC) [Ratio] 15.7 % High 11.5-14.5 [facility] [place] Comment on above: Performed By: #### L IPID, VIDH, CMP, TSH, GFR #### [place] [address] Hematocrit (Bld) [Volume fraction] 32.2 % Low 37.0-47.0 [facility] [place] Comment on above: Performed By: #### L IPID, VIDH, CMP, TSH, GFR #### [address] [address] Hgb 10.5 G/dL Low 12.0-16.0 [facility] [place] Comment on above: Performed By: #### L IPID, VIDH, CMP, TSH, GFR #### [place] [id number] MCH (RBC) [Entitic mass] 29.9 pg Normal 27.0-31.2 [facility] [place] Comment on above: Performed By: #### L IPID, VIDH, CMP, TSH, GFR #### [place] [address] MCHC 32.6 G/dL Low 33.0-37.0 [facility] [place] Comment on above: Performed By: #### L IPID, VIDH, CMP, TSH, GFR #### [place] [address] MCV (RBC) [Entitic vol] 91.6 fL Normal 80.0-94.0 [facility] [place] Comment on above: Performed By: #### L IPID, VIDH, CMP, TSH, GFR #### [place] [address] Platelet 333 10 3/mcL Normal 130-400 [facility] [place] Comment on above: Performed By: #### L IPID, VIDH, CMP, TSH, GFR #### [place] [address] Platelet mean volume (Bld) [Entitic vol] 7.5 fL Normal 7.4-10.4 [facility] [place] Comment on above: Performed By: #### L IPID, VIDH, CMP, TSH, GFR #### [place] [address] RBC 3.52 10 6/mcL Low 4.20-5.40 [facility] ([place] Comment on above: Performed By: #### L IPID, VIDH, CMP, TSH, GFR #### [place] [address] WBC 38.9 10 3/mcL High 4.6-10.8 [facility] ([place] Comment on above: Performed By: #### L IPID, VIDH, CMP, TSH, GFR #### [address] [address] CMPon 05-08-2023 Albumin Level 3.4 G/dL Normal 3.4-4.8 [facility] ([place] Comment on above: Performed By: #### L IPID, VIDH, CMP, TSH, GFR #### [address] [address] Albumin/Globulin [Mass ratio] 1.1 {ratio} Normal 1.1-2.5 [facility] ([place] Comment on above: Performed By: #### L IPID, VIDH, CMP, TSH, GFR #### [address] [address] ALP [Catalytic activity/Vol] 79 U/L Normal 40-135 [facility] [place] Comment on above: Performed By: #### L IPID, VIDH, CMP, TSH, GFR #### [address] [address] ALT [Catalytic activity/Vol] 21 U/L Normal 14-59 [facility] [place] Comment on above: Performed By: #### L IPID, VIDH, CMP, TSH, GFR #### [address] [address] AST [Catalytic activity/Vol] 17 U/L Normal 10-40 [facility] [place] Comment on above: Performed By: #### L IPID, VIDH, CMP, TSH, GFR #### [address] [address] Bili Total 0.3 mg/dL Normal 0.2-1.0 [facility] ([place] Comment on above: Result Comment: Use of this assay is not recommended for patients undergoing treatment with eltrombopag due to the potential for falsely elevated results. Performed By: #### L IPID, VIDH, CMP, TSH, GFR #### [address] [address] BUN/Creatinine Ratio 16 ratio Normal 7-27 [facility] ([place] Comment on above: Performed By: #### L IPID, VIDH, CMP, TSH, GFR #### [address] [address] Calcium [Mass/Vol] 8.9 mg/dL Normal 8.4-10.2 [facility] [place] Comment [place] above: Performed By: #### L IPID, VIDH, CMP, TSH, GFR #### [address] [address] Chloride [Moles/Vol] 98 mmol/L Normal 98-107 [facility] ([place] Comment on above: Performed By: #### L IPID, VIDH, CMP, TSH, GFR #### [address] [address] CO2 [Moles/Vol] 25 mmol/L Normal 23-31 [facility] [place] Comment on above: Performed By: #### L IPID, VIDH, CMP, TSH, GFR #### [address] [address] Creatinine [Mass/Vol] 0.86 mg/dL Normal 0.55-1.02 [facility] ([place] Comment on above: Performed By: #### L IPID, VIDH, CMP, TSH, GFR #### [address] [address] Electrolyte Balance 9.0 mEq/L Normal 4.0-15.0 [facility] ([place] Comment on above: Performed By: #### L IPID, VIDH, CMP, TSH, GFR #### [address] [address] Globulin 3.0 G/dL Normal [facility] ([place] Comment on above: Performed By: #### L IPID, VIDH, CMP, TSH, GFR #### [address] [address] Glucose [Mass/Vol] 141 mg/dL High 83-110 [facility] [place] Comment [place] above: Performed By: #### L IPID, VIDH, CMP, TSH, GFR #### [address] [address] Potassium [Moles/Vol] 3.8 mmol/L Normal 3.5-5.1 [facility] ([place] Comment on above: Performed By: #### L IPID, VIDH, CMP, TSH, GFR #### [address] [address] Sodium [Moles/Vol] 132 mmol/L Low 136-145 [facility] [place] Comment [place] above: Performed By: #### L IPID, VIDH, CMP, TSH, GFR #### [address] [address] Total Protein 6.4 G/dL Normal 6.4-8.2 [facility] ([place] Comment on above: Performed By: #### L IPID, VIDH, CMP, TSH, GFR #### [address] [address] Urea nitrogen [Mass/Vol] 14 mg/dL Normal 7-18 [facility] ([place] Comment on above: Performed By: #### L IPID, VIDH, CMP, TSH, GFR #### [address] [address] [address] ANGIOGRAPHY CHEST W/CONTR Ilsa 05-08-2023 CT ANGIOGRAPHY CHEST W/CONTRAST ORIGINAL EXAMINATION: CTA OF THE CHEST 05/08/2023 12:39 pm TECHNIQUE: CTA of the chest was performed after the administration of intravenous contrast. Multiplanar reformatted images are provided for review. MIP images are provided for review. Automated exposure control, iterative reconstruction, and/or weight based adjustment of the mA/kV was utilized to reduce the radiation dose to as low as reasonably achievable. COMPARISON: None. HISTORY: ORDERING SYSTEM PROVIDED HISTORY: Reason for Exam: elevated d dimer FINDINGS: Dqpw-nr-irwzhnlw degenerative changes are noted in the spine. No acute osseous abnormality identified. Small scattered areas of pulmonary and pleural scarring are visible. Mild mosaic attenuation is evident and this may indicate small airways or microvascular disease. There is no confluent infiltrate identified, and there is no pleural fluid seen. Prominent mediastinal adenopathy is evident, paratracheal, precarinal, prevascular, subcarinal. Mild hilar adenopathy is also evident. Additionally, there is prominent bilateral axillary adenopathy. No pulmonary artery defect is identified on this exam. No additional contributory abnormality seen. IMPRESSION: 1. No evidence for pulmonary embolism on this exam. 2. Scattered ground-glass densities/mosaic attenuation most compatible with mild small airway or microvascular disease. 3. Prominent adenopathy in multiple locations. Lymphoproliferative disorder is the leading consideration. Interpreted by: Nii Carmen MD Preliminary Report By: Nii Carmen MD Electronically signed By Nii Carmen MD Dictated Date: 05/08/2023 12:41:42 PM Prelim Date: 05/08/2023 12:45:07 PM Sign Date: 05/08/2023 12:45:07 PM Ordering Provider: CHANTAL Nunez [facility]) DIMERon 05-08-2023 D-Dimer 469 ng/mL D-DU High 0-230 [facility] ([place] Comment on above: Result Comment: Resu lts reported in D-DU ng/mL. Positive for D-dimer. A positive D-Dimer may occur in the following: DVT, PE, DIC, Trauma, Cancer, Sepsis, , Rheumatoid arthritis, Myocardial infarction and Cirrhosis. The presence of Rheumatoid Factor and HAMA (human mouse antibody) produces an overestimation of test results. The result of the D-Dimer test should be evaluated in the context of all the clinical and laboratory data available. In those instances where the laboratory result does not agree with the clinical evaluation, additional tests should be performed accordingly. If the D-Dimer result is used to exclude DVT or PE, the recommended cutoff value is less than 230 ng/mL. The D-Dimer result should not be used alone to rule in DVT/PE, but should be used in conjunction with a clinical pretest probability (PTP)assessment model to exclude venous thromboembolism (VTE) in outpatients suspected of deep venous thrombosis (DVT) and pulmonary embolism (PE). Performed By: #### L IPID, VIDH, CMP, TSH, GFR #### [place] [address] LABORATORYOrdered By: SYSTEM SYSTEM on 05-08-2023 Troponin I.cardiac DL <= 0.01 ng/mL [Mass/Vol] 5.5 ng/L Normal 0.0 - 51.4 ng/L AO ADM SS Albumin BCP dye [Mass/Vol] 3.4 G/dL Normal 3.4 - 4.8 G/dL AO ADM SS Albumin/Globulin [Mass ratio] 1.1 {ratio} Normal 1.1 - 2.5 ratio AO ADM SS ALP [Catalytic activity/Vol] 79 U/L Normal 40 - 135 U/L AO ADM SS ALT With P-5'-P [Catalytic activity/Vol] 21 U/L Normal 14 - 59 U/L AO ADM SS AST With P-5'-P [Catalytic activity/Vol] 17 U/L Normal 10 - 40 U/L AO ADM SS Basophil %, Manual 1.0 % Normal 0.0 - 2.5 % AO Workflow SS Basophil, Abs Manual 0.4 103/mcL High 0.0 - 0.2 10^3/mcL AO Workflow SS Bilirubin [Mass/Vol] 0.3 mg/dL Normal 0.2 - 1.0 mg/dL AO ADM SS Comment on above: Interpretive Data: U se of this assay is not recommended for patients undergoing treatment with eltrombopag due to the potential for falsely elevated results. Calcium [Mass/Vol] 8.9 mg/dL Normal 8.4 - 10. 2 mg/dL AO ADM SS Chloride [Moles/Vol] 98 mmol/L Normal 98 - 107 mmol/L AO ADM SS CO2 [Moles/Vol] 25 mmol/L Normal 23 - 31 mmol/L AO ADM SS Creatinine [Mass/Vol] 0.86 mg/dL Normal 0.55 - 1.02 mg/dL AO ADM SS Electrolyte Balance 9.0 mEq/L Normal 4.0 - 15.0 mEq/L AO ADM SS Eosinophil %, Manual 0.0 % Normal 0.0 - 7.0 % AO Workflow SS Eosinophils (Bld) [#/Vol] 0.0 103/mcL Normal 0.0 - 0.4 10^3/mcL AO Workflow SS Erythrocyte distribution width (RBC) [Ratio] 15.7 % High 11.5 - 14.5 % AO Workflow SS GFR/1.73 sq M.predicted among blacks MDRD (S/P/Bld) [Vol rate/Area] 76 ml/min/1.73sqm Invalid Interpretation Code AO Chemistry S Comment on above: Interpretive Data: GFR Population mean for , Non- Americans Ages 20-29 = 116 mL/min/1.73 sq.m. Ages 30-39 = 107 mL/min/1.73 sq.m. Ages 40-49 = 99 mL/min/1.73 sq.m. Ages 50-59 = 93 mL/min/1.73 sq.m. Ages 60-69 = 85 mL/min/1.73 sq.m. Ages 70+ = 75 mL/min/1.73 sq.m. Chronic Kidney Disease: Less than 60 mL/min/1.73 square meters End Stage Renal Disease: Less than 15 mL/min/1.73 square meters GFR/1.73 sq M.predicted among non-blacks MDRD (S/P/Bld) [Vol rate/Area] 63 ml/min/1.73sqm Invalid Interpretation Code AO Chemistry S Comment on above: Interpretive Data: GFR Population mean for , Non- Americans Ages 20-29 = 116 mL/min/1.73 sq.m. Ages 30-39 = 107 mL/min/1.73 sq.m. Ages 40-49 = 99 mL/min/1.73 sq.m. Ages 50-59 = 93 mL/min/1.73 sq.m. Ages 60-69 = 85 mL/min/1.73 sq.m. Ages 70+ = 75 mL/min/1.73 sq.m. Chronic Kidney Disease: Less than 60 mL/min/1.73 square meters End Stage Renal Disease: Less than 15 mL/min/1.73 square meters Globulin 3.0 G/dL Invalid Interpretation Code AO ADM SS Glucose [Mass/Vol] 141 mg/dL High 83 - 110 mg/dL AO ADM SS Hematocrit (Bld) [Volume fraction] 32.2 % Low 37.0 - 47.0 % AO Workflow SS Hemoglobin (Bld) [Mass/Vol] 10.5 G/dL Low 12.0 - 16.0 G/dL AO Workflow SS Lymphocyte %, Manual 92.0 % High 10.0 - 50.0 % AO Workflow SS Lymphocyte, Abs Manual 35.8 103/mcL High 0.8 - 3.9 10^3/mcL AO Workflow SS Magnesium [Mass/Vol] 1.9 mg/dL Normal 1.8 - 2.4 mg/dL AO ADM SS MCH (RBC) [Entitic mass] 29.9 pg Normal 27.0 - 31.2 pg AO Workflow SS MCHC 32.6 G/dL Low 33.0 - 37.0 G/dL AO Workflow SS MCV (RBC) [Entitic vol] 91.6 fL Normal 80.0 - 94.0 fL AO Workflow SS Monocyte %, Manual 1.0 % Low 1.7 - 13. 0 % AO Workflow SS Monocyte distribution width Auto (Bld) [Entitic vol] 34.01 1 High 0.00 - 20.00 AO Workflow SS Comment on above: Result Comment: The predictive value of MDW for identifying sepsis in patients with hematological abnormalities has not been established Monocyte, Abs Manual 0.4 103/mcL Normal 0.2 - 1.0 10^3/mcL AO Workflow SS Natriuretic peptide.B prohormone N-Terminal [Mass/Vol] 608 pg/mL High 0 - 450 pg/mL AO ADM SS Comment on above: Interpretive Data: N T-proBNP results of less than 300 pg/mL effectively rules out acute congestive heart failure with 99% negative predictive value. Neutrophil %, Manual 6.0 % Low 37.0 - 80.0 % AO Workflow SS Neutrophil, Abs Manual 2.3 103/mcL Low 2.9 - 6.2 10^3/mcL AO Workflow SS Nucleated RBC 0.0 /100 WBC Invalid Interpretation Code AO Workflow SS Platelet Estimate Normal *NA* (05/08/23 9:39 AM) Invalid Interpretation Code AO Workflow SS Platelet mean volume (Bld) [Entitic vol] 7.5 fL Normal 7.4 - 10.4 fL AO Workflow SS Platelets (Bld) [#/Vol] 333 103/mcL Normal 130 - 400 10^3/mcL AO Workflow SS Potassium [Moles/Vol] 3.8 mmol/L Normal 3.5 - 5.1 mmol/L AO ADM SS Protein [Mass/Vol] 6.4 G/dL Normal 6.4 - 8.2 G/dL AO ADM SS RBC (Bld) [#/Vol] 3.52 106/mcL Low 4.20 - 5.40 10^6/mcL AO Workflow SS Sodium [Moles/Vol] 132 mmol/L Low 136 - 145 mmol/L AO ADM SS Troponin I.cardiac DL <= 0.01 ng/mL [Mass/Vol] 5.6 ng/L Normal 0.0 - 51.4 ng/L AO ADM SS Urea nitrogen [Mass/Vol] 14 mg/dL Normal 7 - 18 mg/dL AO ADM SS Urea nitrogen/Creatinin e [Mass ratio] 16 ratio Normal 7 - 27 ratio AO ADM SS WBC (Bld) [#/Vol] 38.9 103/mcL High 4.6 - 10.8 10^3/mcL AO Workflow SS LABORATORYOrdered By: Anna Felix on 05-08-2023 Fibrin D-dimer DDU (PPP) [Mass/Vol] 469 ng/mL D-DU High 0 - 230 ng/mL D-DU AO [facility] SS Comment on above: Result Comment: Resu lts reported in D-DU ng/mL. Positive for D-dimer. A positive D-Dimer may occur in the following: DVT, PE, DIC, Trauma, Cancer, Sepsis, , Rheumatoid arthritis, Myocardial infarction and Cirrhosis. The presence of Rheumatoid Factor and HAMA (human mouse antibody) produces an overestimation of test results. Interpretive Data: T he result of the D-Dimer test should be evaluated in the context of all the clinical and laboratory data available. In those instances where the laboratory result does not agree with the clinical evaluation, additional tests should be performed accordingly. If the D-Dimer result is used to exclude DVT or PE, the recommended cutoff value is less than 230 ng/mL. The D-Dimer result should not be used alone to rule in DVT/PE, but should be used in conjunction with a clinical pretest probability (PTP)assessment model to exclude venous thromboembolism (VTE) in outpatients suspected of deep venous thrombosis (DVT) and pulmonary embolism (PE). MGon 05-08-2023 Magnesium [Mass/Vol] 1.9 mg/dL Normal 1.8-2.4 [facility] [place] Comment on above: Performed By: #### L IPID, VIDH, CMP, TSH, GFR #### [facility] [place] [address] [place], [place] [address] PBNPon 05-08-2023 Natriuretic peptide B (Bld) [Mass/Vol] 608 pg/mL High 0-450 [facility] ([place] Comment on above: Result Comment: NT-p roBNP results of less than 300 pg/mL effectively rules out acute congestive heart failure with 99% negative predictive value. Performed By: #### L IPID, VIDH, CMP, TSH, GFR #### [address] [address] TROPHSon 05-08-2023 Troponin I High Sensitivity 5.5 ng/L Normal 0.0-51.4 [facility] ([place] Comment on above: Performed By: #### T ROPHS #### [address] [address] Troponin I High Sensitivity 5.6 ng/L Normal 0.0-51.4 [facility] ([place] Comment on above: Performed By: #### L IPID, VIDH, CMP, TSH, GFR #### [address] [address] XR CHEST 1 VIEWon 05-08-2023 XR CHEST 1 VIEW ORIGINAL EXAMINATION: ONE XRAY VIEW OF THE CHEST 05/08/2023 11:06 am COMPARISON: March 16, 2019 HISTORY: ORDERING SYSTEM PROVIDED HISTORY: Reason for Exam: chest pain FINDINGS: The heart is slightly prominent without vascular congestion. There is some background interstitial prominence present. No focal infiltrate or pleural fluid seen. There are degenerative changes in the spine and at the shoulders. IMPRESSION: No acute finding. Interpreted by: Nii Carmen MD Preliminary Report By: Nii Carmen MD Electronically signed By Nii Carmen MD Dictated Date: 05/08/2023 11:10:42 AM Prelim Date: 05/08/2023 11:11:05 AM Sign Date: 05/08/2023 11:11:05 AM Ordering Provider: CHANTAL Nunez [facility] ([place] No Panel Informationon 05-05 Culture Urine 50,000 - 100,000 cfu /ml Mixed growth consistent with normal urogenital giles. [facility] Work Phone: LABORATORYOrdered By: Steff Mccarthy on 08-28-2022 Albumin DL <= 20 mg/L (U) [Mass/Vol] 462 mcg/dL Invalid Interpretation Code AO ADM SS Albumin/Creatinine DL <= 20 mg/L (U) [Mass ratio] 6 mcg/mg Invalid Interpretation Code 0 - 30 mcg/mg AO ADM SS Creatinine (U) [Mass/Vol] 78.3 mg/dL Invalid Interpretation Code 28.0 - 117.0 mg/dL AO ADM SS LABORATORYOrdered By: SYSTEM SYSTEM on 08-13-2022 Albumin BCP dye [Mass/Vol] 3.9 G/dL Invalid Interpretation Code 3.4 - 4.8 G/dL AO ADM SS Albumin/Globulin [Mass ratio] 1.3 {ratio} Invalid Interpretation Code 1.1 - 2.5 ratio AO ADM SS ALP [Catalytic activity/Vol] 82 U/L Invalid Interpretation Code 40 - 135 U/L AO ADM SS ALT With P-5'-P [Catalytic activity/Vol] 20 U/L Invalid Interpretation Code 14 - 59 U/L AO ADM SS AST With P-5'-P [Catalytic activity/Vol] 19 U/L Invalid Interpretation Code 10 - 40 U/L AO ADM SS Bilirubin [Mass/Vol] 0.6 mg/dL Invalid Interpretation Code 0.2 - 1.0 mg/dL AO ADM SS Calcium [Mass/Vol] 9.3 mg/dL Invalid Interpretation Code 8.4 - 10.2 mg/dL AO ADM SS Chloride [Moles/Vol] 102 mmol/L Invalid Interpretation Code 98 - 107 mmol/L AO ADM SS CO2 [Moles/Vol] 30 mmol/L Invalid Interpretation Code 23 - 31 mmol/L AO ADM SS Creatinine [Mass/Vol] 0.72 mg/dL Invalid Interpretation Code 0.55 - 1.02 mg/dL AO ADM SS Electrolyte Balance 6.0 mEq/L Invalid Interpretation Code 4.0 - 15.0 mEq/L AO ADM SS GFR 94 ml/min/1.73sqm Invalid Interpretation Code AO Chemistry S GFR Non- 77 ml/min/1.73sqm Invalid Interpretation Code AO Chemistry S Globulin 2.9 G/dL Invalid Interpretation Code AO ADM SS Glucose [Mass/Vol] 98 mg/dL Invalid Interpretation Code 83 - 110 mg/dL AO ADM SS LDH [Catalytic activity/Vol] 515 U/L Invalid Interpretation Code 81 - 234 U/L AO ADM SS Potassium [Moles/Vol] 4.6 mmol/L Invalid Interpretation Code 3.5 - 5.1 mmol/L AO ADM SS Protein [Mass/Vol] 6.8 G/dL Invalid Interpretation Code 6.4 - 8.2 G/dL AO ADM SS Sodium [Moles/Vol] 138 mmol/L Invalid Interpretation Code 136 - 145 mmol/L AO ADM SS Urea nitrogen [Mass/Vol] 14 mg/dL Invalid Interpretation Code 7 - 18 mg/dL AO ADM SS Urea nitrogen/Creatinin e [Mass ratio] 19 ratio Invalid Interpretation Code 7 - 27 ratio AO ADM SS LABORATORYOrdered By: Anna Felix on 08-13-2022 Basophil %, Manual 0.0 1 Invalid Interpretation Code 0.0 - 2.5 % AO Workflow SS Basophil, Abs Manual 0.0 103/mcL Invalid Interpretation Code 0.0 - 0.2 10^3/mcL AO Workflow SS Eosinophil %, Manual 0.0 1 Invalid Interpretation Code 0.0 - 7.0 % AO Workflow SS Eosinophils (Bld) [#/Vol] 0.0 103/mcL Invalid Interpretation Code 0.0 - 0.4 10^3/mcL AO Workflow SS Erythrocyte distribution width (RBC) [Ratio] 14.4 % Invalid Interpretation Code 11.5 - 14.5 % AO Workflow SS Hematocrit (Bld) [Volume fraction] 38.4 % Invalid Interpretation Code 37.0 - 47.0 % AO Workflow SS Hemoglobin (Bld) [Mass/Vol] 12.6 G/dL Invalid Interpretation Code 12.0 - 16.0 G/dL AO Workflow SS Lymphocyte %, Manual 89.0 1 Invalid Interpretation Code 10.0 - 50.0 % AO Workflow SS Lymphocyte, Abs Manual 35.3 103/mcL Invalid Interpretation Code 0.8 - 3.9 10^3/mcL AO Workflow SS MCH (RBC) [Entitic mass] 29.4 pg Invalid Interpretation Code 27.0 - 31.2 pg AO Workflow SS MCHC 32.9 G/dL Invalid Interpretation Code 33.0 - 37.0 G/dL AO Workflow SS MCV (RBC) [Entitic vol] 89.4 fL Invalid Interpretation Code 80.0 - 94.0 fL AO Workflow SS Monocyte %, Manual 1.0 1 Invalid Interpretation Code 1.7 - 13.0 % AO Workflow SS Monocyte, Abs Manual 0.4 103/mcL Invalid Interpretation Code 0.2 - 1.0 10^3/mcL AO Workflow SS Neutrophil %, Manual 10.0 1 Invalid Interpretation Code 37.0 - 80.0 % AO Workflow SS Neutrophil, Abs Manual 4.0 103/mcL Invalid Interpretation Code 2.9 - 6.2 10^3/mcL AO Workflow SS Nucleated RBC 0.0 /100 WBC Invalid Interpretation Code AO Workflow SS Platelet Estimate Normal *NA* (08/13/22 8:16 AM) Invalid Interpretation Code AO Workflow SS Platelet mean volume (Bld) [Entitic vol] 7.7 fL Invalid Interpretation Code 7.4 - 10.4 fL AO Workflow SS Platelets (Bld) [#/Vol] 353 103/mcL Invalid Interpretation Code 130 - 400 10^3/mcL AO Workflow SS RBC (Bld) [#/Vol] 4.30 106/mcL Invalid Interpretation Code 4.20 - 5.40 10^6/mcL AO Workflow SS WBC (Bld) [#/Vol] 39.7 103/mcL Invalid Interpretation Code 4.6 - 10.8 10^3/mcL AO Workflow SS LABORATORYOrdered By: Sedrick Hernandez on 08-05-2022 SARS-CoV-2 (COVID-19) RNA BREANNA+probe Ql (Resp) Positive results are indicative of the presence of SARS-CoV-2 RNA; clinical correlation with patient history and other diagnostic information is necessary to determine patient infection status. Positive results do not rule out bacterial infection or co-infection with other viruses. The agent detected may not be the definite cause of disease. Laboratories within the [facility] and its territories are required to report all positive results to the appropriate public health authorities.Detection of analyte target(s) does not imply that the corresponding virus(es) are infectious or are the causative agents for clinical symptoms.There is a risk of false positive values resulting from cross-contamination by target organisms, their nucleic acids or amplified product, or from non-specific signals in the assay.CHIQUIS SARS-CoV-2 Assay is a Real-Time reverse-transcriptase polymerase chain reaction (RT-PCR) based qualitative in vitro diagnostic test intended for the qualitative detection of nucleic acid from the SARS-CoV-2 in nasopharyngeal swab specimens collected from individuals suspected of COVID-19 by their healthcare provider. Testing is limited to laboratories certified under the Clinical Laboratory Improvement Amendments of 1988 (CLIA), 42 U.S.C. 263a, to perform moderate and high complexity tests. Invalid Interpretation Code AO Auto Urine SS LABORATORYOrdered By: SYSTEM SYSTEM on 07-07-2022 Albumin BCP dye [Mass/Vol] 4.2 G/dL Invalid Interpretation Code 3.4 - 4.8 G/dL AO ADM SS Albumin/Globulin [Mass ratio] 1.4 {ratio} Invalid Interpretation Code 1.1 - 2.5 ratio AO ADM SS ALP [Catalytic activity/Vol] 73 U/L Invalid Interpretation Code 40 - 135 U/L AO ADM SS ALT With P-5'-P [Catalytic activity/Vol] 24 U/L Invalid Interpretation Code 14 - 59 U/L AO ADM SS AST With P-5'-P [Catalytic activity/Vol] 25 U/L Invalid Interpretation Code 10 - 40 U/L AO ADM SS Bilirubin [Mass/Vol] 0.4 mg/dL Invalid Interpretation Code 0.2 - 1.0 mg/dL AO ADM SS Calcium [Mass/Vol] 9.8 mg/dL Invalid Interpretation Code 8.4 - 10.2 mg/dL AO ADM SS Chloride [Moles/Vol] 101 mmol/L Invalid Interpretation Code 98 - 107 mmol/L AO ADM SS CO2 [Moles/Vol] 29 mmol/L Invalid Interpretation Code 23 - 31 mmol/L AO ADM SS Creatinine [Mass/Vol] 0.71 mg/dL Invalid Interpretation Code 0.55 - 1.02 mg/dL AO ADM SS Electrolyte Balance 7.0 mEq/L Invalid Interpretation Code 4.0 - 15.0 mEq/L AO ADM SS Free T3 [Mass/Vol] 2.67 pg/mL Invalid Interpretation Code 2.30 - 4.00 pg/mL AO ADM SS Free T4 [Mass/Vol] 1.46 ng/dL Invalid Interpretation Code 0.76 - 1.46 ng/dL AO ADM SS GFR 95 ml/min/1.73sqm Invalid Interpretation Code AO Chemistry S GFR Non- 79 ml/min/1.73sqm Invalid Interpretation Code AO Chemistry S Globulin 2.9 G/dL Invalid Interpretation Code AO ADM SS Glucose [Mass/Vol] 90 mg/dL Invalid Interpretation Code 83 - 110 mg/dL AO ADM SS Magnesium [Mass/Vol] 2.1 mg/dL Invalid Interpretation Code 1.8 - 2.4 mg/dL AO ADM SS Potassium [Moles/Vol] 4.8 mmol/L Invalid Interpretation Code 3.5 - 5.1 mmol/L AO ADM SS Protein [Mass/Vol] 7.1 G/dL Invalid Interpretation Code 6.4 - 8.2 G/dL AO ADM SS Sodium [Moles/Vol] 137 mmol/L Invalid Interpretation Code 136 - 145 mmol/L AO ADM SS TSH Qn 0.74 m[IU]/L Invalid Interpretation Code 0.36 - 3.74 mcIU/mL AO ADM SS Urea nitrogen [Mass/Vol] 18 mg/dL Invalid Interpretation Code 7 - 18 mg/dL AO ADM SS Urea nitrogen/Creatinin e [Mass ratio] 25 ratio Invalid Interpretation Code 7 - 27 ratio AO ADM SS Vit. D 25-Hydroxy 42.9 ng/mL Invalid Interpretation Code AO ADM SS LABORATORYOrdered By: Steff Mccarthy on 05-12-2022 Albumin BCP dye [Mass/Vol] 4.0 G/dL Invalid Interpretation Code 3.4 - 4.8 G/dL AO ADM SS Albumin/Globulin [Mass ratio] 1.3 {ratio} Invalid Interpretation Code 1.1 - 2.5 ratio AO ADM SS ALP [Catalytic activity/Vol] 66 U/L Invalid Interpretation Code 40 - 135 U/L AO ADM SS ALT With P-5'-P [Catalytic activity/Vol] 21 U/L Invalid Interpretation Code 14 - 59 U/L AO ADM SS AST With P-5'-P [Catalytic activity/Vol] 24 U/L Invalid Interpretation Code 10 - 40 U/L AO ADM SS Bilirubin [Mass/Vol] 0.6 mg/dL Invalid Interpretation Code 0.2 - 1.0 mg/dL AO ADM SS Calcium [Mass/Vol] 9.4 mg/dL Invalid Interpretation Code 8.4 - 10.2 mg/dL AO ADM SS Chloride [Moles/Vol] 102 mmol/L Invalid Interpretation Code 98 - 107 mmol/L AO ADM SS Cholesterol [Mass/Vol] 233 mg/dL Invalid Interpretation Code 0 - 200 mg/dL AO ADM SS Cholesterol in HDL [Mass/Vol] 59 mg/dL Invalid Interpretation Code 40 - 60 mg/dL AO ADM SS Cholesterol in LDL [Mass/Vol] 155 mg/dL Invalid Interpretation Code 0 - 130 mg/dL AO ADM SS CO2 [Moles/Vol] 28 mmol/L Invalid Interpretation Code 23 - 31 mmol/L AO ADM SS Creatinine [Mass/Vol] 0.73 mg/dL Invalid Interpretation Code 0.55 - 1.02 mg/dL AO ADM SS Electrolyte Balance 9.0 mEq/L Invalid Interpretation Code 4.0 - 15.0 mEq/L AO ADM SS Globulin 3.0 G/dL Invalid Interpretation Code AO ADM SS Glucose [Mass/Vol] 83 mg/dL Invalid Interpretation Code 83 - 110 mg/dL AO ADM SS Potassium [Moles/Vol] 4.9 mmol/L Invalid Interpretation Code 3.5 - 5.1 mmol/L AO ADM SS Protein [Mass/Vol] 7.0 G/dL Invalid Interpretation Code 6.4 - 8.2 G/dL AO ADM SS Sodium [Moles/Vol] 139 mmol/L Invalid Interpretation Code 136 - 145 mmol/L AO ADM SS Triglyceride [Mass/Vol] 97 mg/dL Invalid Interpretation Code 0 - 150 mg/dL AO ADM SS TSH Qn 5.15 m[IU]/L Invalid Interpretation Code 0.36 - 3.74 mcIU/mL AO ADM SS Urea nitrogen [Mass/Vol] 16 mg/dL Invalid Interpretation Code 7 - 18 mg/dL AO ADM SS Urea nitrogen/Creatinin e [Mass ratio] 22 ratio Invalid Interpretation Code 7 - 27 ratio AO ADM SS LABORATORYOrdered By: SYSTEM SYSTEM on 05-12-2022 GFR 92 ml/min/1.73sqm Invalid Interpretation Code AO Chemistry S GFR Non- 76 ml/min/1.73sqm Invalid Interpretation Code AO Chemistry S LABORATORYOrdered By: Marly Escalera on 05-12-2022 HCV Ab IA Ql Non-Reactive (05/12/22 9:38 AM) Invalid Interpretation Code Non-Reacti ve ADM SS HCV Ab IA Ql Nonreactive: Samples with a value < 0.80 are considered nonreactive (negative) for antibodies to HCV.A negative test result does not exclude the possibility of exposure to or infection with HCV. HCV antibodies may be undetectable in some stages of the infection and in some clinical conditions. Invalid Interpretation Code Chemistry S LABORATORYOrdered By: Alexandria Ramírez on 10-29-2021 Albumin BCP dye [Mass/Vol] 4.1 G/dL Invalid Interpretation Code 3.4 - 4.8 G/dL AO ADM SS Albumin/Globulin [Mass ratio] 1.4 {ratio} Invalid Interpretation Code 1.1 - 2.5 ratio AO ADM SS ALP [Catalytic activity/Vol] 59 U/L Invalid Interpretation Code 40 - 135 U/L AO ADM SS ALT With P-5'-P [Catalytic activity/Vol] 25 U/L Invalid Interpretation Code 14 - 59 U/L AO ADM SS AST With P-5'-P [Catalytic activity/Vol] 23 U/L Invalid Interpretation Code 10 - 40 U/L AO ADM SS Bilirubin [Mass/Vol] 0.6 mg/dL Invalid Interpretation Code 0.2 - 1.0 mg/dL AO ADM SS Calcium [Mass/Vol] 9.6 mg/dL Invalid Interpretation Code 8.4 - 10.2 mg/dL AO ADM SS Chloride [Moles/Vol] 95 mmol/L Invalid Interpretation Code 98 - 107 mmol/L AO ADM SS CO2 [Moles/Vol] 31 mmol/L Invalid Interpretation Code 23 - 31 mmol/L AO ADM SS Creatinine [Mass/Vol] 0.69 mg/dL Invalid Interpretation Code 0.55 - 1.02 mg/dL AO ADM SS Electrolyte Balance 8.0 mEq/L Invalid Interpretation Code 4.0 - 15.0 mEq/L AO ADM SS Globulin 3.0 G/dL Invalid Interpretation Code AO ADM SS Glucose [Mass/Vol] 91 mg/dL Invalid Interpretation Code 83 - 110 mg/dL AO ADM SS Magnesium [Mass/Vol] 2.0 mg/dL Invalid Interpretation Code 1.8 - 2.4 mg/dL AO ADM SS Potassium [Moles/Vol] 3.9 mmol/L Invalid Interpretation Code 3.5 - 5.1 mmol/L AO ADM SS Protein [Mass/Vol] 7.1 G/dL Invalid Interpretation Code 6.4 - 8.2 G/dL AO ADM SS Sodium [Moles/Vol] 134 mmol/L Invalid Interpretation Code 136 - 145 mmol/L AO ADM SS TSH Qn 1.96 m[IU]/L Invalid Interpretation Code 0.36 - 3.74 mcIU/mL AO ADM SS Urea nitrogen [Mass/Vol] 15 mg/dL Invalid Interpretation Code 7 - 18 mg/dL AO ADM SS Urea nitrogen/Creatinin e [Mass ratio] 22 ratio Invalid Interpretation Code 7 - 27 ratio AO ADM SS Vit. D 25-Hydroxy 51.3 ng/mL Invalid Interpretation Code AO ADM SS LABORATORYOrdered By: SYSTEM SYSTEM on 10-29-2021 Cobalamin (Vitamin B12) [Mass/Vol] 360 pg/mL Invalid Interpretation Code 211 - 911 pg/mL AH ADM SS GFR 99 ml/min/1.73sqm Invalid Interpretation Code AO Chemistry S GFR Non- 81 ml/min/1.73sqm Invalid Interpretation Code AO Chemistry S No Panel Informationon 07-02 Culture Urine 10,000 - 50,000 cfu/ ml Multiple bacterial morphotypes present. Probable Contamination. Suggest recollection if clinically indicated. [facility] Work Phone: LABORATORYOrdered By: Steff Mccarthy on 05-06-2021 Albumin BCP dye [Mass/Vol] 4.0 G/dL Invalid Interpretation Code 3.4 - 4.8 G/dL AO ADM SS Albumin/Globulin [Mass ratio] 1.3 {ratio} Invalid Interpretation Code 1.1 - 2.5 ratio AO ADM SS ALP [Catalytic activity/Vol] 62 U/L Invalid Interpretation Code 40 - 135 U/L AO ADM SS ALT With P-5'-P [Catalytic activity/Vol] 31 U/L Invalid Interpretation Code 14 - 59 U/L AO ADM SS AST With P-5'-P [Catalytic activity/Vol] 27 U/L Invalid Interpretation Code 10 - 40 U/L AO ADM SS Bilirubin [Mass/Vol] 0.5 mg/dL Invalid Interpretation Code 0.2 - 1.0 mg/dL AO ADM SS Calcium [Mass/Vol] 9.4 mg/dL Invalid Interpretation Code 8.4 - 10.2 mg/dL AO ADM SS Chloride [Moles/Vol] 100 mmol/L Invalid Interpretation Code 98 - 107 mmol/L AO ADM SS Cholesterol [Mass/Vol] 251 mg/dL Invalid Interpretation Code 0 - 200 mg/dL AO ADM SS Cholesterol in HDL [Mass/Vol] 61 mg/dL Invalid Interpretation Code 40 - 60 mg/dL AO ADM SS Cholesterol in LDL [Mass/Vol] 166 mg/dL Invalid Interpretation Code 0 - 130 mg/dL AO ADM SS CO2 [Moles/Vol] 31 mmol/L Invalid Interpretation Code 23 - 31 mmol/L AO ADM SS Creatinine [Mass/Vol] 0.66 mg/dL Invalid Interpretation Code 0.55 - 1.02 mg/dL AO ADM SS Electrolyte Balance 9.0 mEq/L Invalid Interpretation Code AO ADM SS Globulin 3.1 G/dL Invalid Interpretation Code AO ADM SS Glucose [Mass/Vol] 95 mg/dL Invalid Interpretation Code 83 - 110 mg/dL AO ADM SS Potassium [Moles/Vol] 4.3 mmol/L Invalid Interpretation Code 3.5 - 5.1 mmol/L AO ADM SS Protein [Mass/Vol] 7.1 G/dL Invalid Interpretation Code 6.4 - 8.2 G/dL AO ADM SS Sodium [Moles/Vol] 140 mmol/L Invalid Interpretation Code 136 - 145 mmol/L AO ADM SS Triglyceride [Mass/Vol] 122 mg/dL Invalid Interpretation Code 0 - 150 mg/dL AO ADM SS TSH Qn 3.44 m[IU]/L Invalid Interpretation Code 0.36 - 3.74 mcIU/mL AO ADM SS Urea nitrogen [Mass/Vol] 13 mg/dL Invalid Interpretation Code 7 - 18 mg/dL AO ADM SS Urea nitrogen/Creatinin e [Mass ratio] 20 ratio Invalid Interpretation Code 7 - 27 ratio AO ADM SS LABORATORYOrdered By: SYSTEM SYSTEM on 05-06-2021 GFR 104 ml/min/1.73sqm Invalid Interpretation Code AO Chemistry S GFR Non- 86 ml/min/1.73sqm Invalid Interpretation Code AO Chemistry S Clinical Summary: HMSPatient IDon 10-05-2017 OOP Invalid Interpretation Code [facility] Work Phone: Clinical Summary: Scanned Hi yenny Summaryon 10-05-2017 Data entered by patient exercise frequency 2 days per week Invalid Interpretation Code [facility] Work Phone: Data entered by patient exercise type walking Invalid Interpretation Code [facility] Work Phone: data entered by patient, alcohol (ethanol or ETOH) use No Invalid Interpretation Code [facility] Work Phone: data entered by patient, drug (of abuse) use No Invalid Interpretation Code [facility] Work Phone: data entered by patient, Employer Name Retired Invalid Interpretation Code [facility] Work Phone: data entered by patient, exercise history Yes Invalid Interpretation Code [facility] Work Phone: Data entered by patient, history of past surgeries AppendectomyTonsillectomyHyste rectomy Invalid Interpretation Code [facility] Work Phone: data entered by patient, past medical history High blood pressureMitral valve prolapseOsteopenia Invalid Interpretation Code [facility] Work Phone: data entered by patient, social history, current smoker never smoker Invalid Interpretation Code [facility] Work Phone: data entered by patient, social history, marital status Invalid Interpretation Code [facility] Work Phone: father of patient is alive or Invalid Interpretation Code [facility] Work Phone: Housing Type: apartment, house, snf, trailer, none House Invalid Interpretation Code [facility] Work Phone: housing unit size (asthma environmental history, housing) (from single family to don't know) 2 Floors Invalid Interpretation Code [facility] Work Phone: mother of patient is alive or Invalid Interpretation Code [facility] Work Phone: Number of dependent children No Invalid Interpretation Code [facility] Work Phone: Clinical Summary: Marlyn Dick Summaryon 10-05-2017 endocrine ROS Denies Invalid Interpretation Code [facility] Work Phone: Gastrointestional review of systems, comment Hemorrhoids Invalid Interpretation Code [facility] Work Phone: genitourinary review of systems, E&M Denies Invalid Interpretation Code [facility] Work Phone: Lymphocytes Denies Invalid Interpretation Code [facility] Work Phone: Review of Systems Neurologic comment Numbness,Tingling,Loss Of Balance Invalid Interpretation Code [facility] Work Phone: ROS cardiovascular E&M Denies Invalid Interpretation Code [facility] Work Phone: ROS ENT E&M Denies Invalid Interpretation Code [facility] Work Phone: ROS gastrointestinal E&M Complains Invalid Interpretation Code [facility] Work Phone: ROS general E&M Denies Invalid Interpretation Code [facility] Work Phone: ROS musculoskeletal E&M Denies Invalid Interpretation Code [facility] Work Phone: ROS neurological E&M Complains Invalid Interpretation Code [facility] Work Phone: ROS Psych comment Difficulty Sleeping Invalid Interpretation Code [facility] Work Phone: ROS psychiatric E&M Complains Invalid Interpretation Code [facility] Work Phone: ROS pulmonary E&M Denies Invalid Interpretation Code [facility] Work Phone: ROS skin E&M Denies Invalid Interpretation Code [facility] Work Phone: Office Visit: New - 1st visi t with practice, Rm: 3on 10-05-2017 NEGATED: Highlighted rowDocumentation of current medications (procedure) Done Invalid Interpretation Code [facility] Work Phone: NEGATED: Highlighted rowTobacco smoking status NHIS Tobacco smoking status NHIS Invalid Interpretation Code [facility] Work Phone: Vital Signs Date Time Vital Sign Value Performing Clinician Facility 10-04-2023 13:09-0400 Blood Pressure Location [facility] DO [facility] 10-04-2023 13:09-0400 Blood Pressure Method [facility] DO [facility] 10-04-2023 13:09-0400 Diastolic Blood Pressure Non-Invasive 68 mm[Hg] [facility] DO [facility] 10-04-2023 13:09-0400 Heart rate 82 /min LEONARDO REICHFIELD DO [facility] 10-04-2023 13:09-0400 Respiratory rate 18 /min LEONARDO REICHFIELD DO [facility] 10-04-2023 13:09-0400 Systolic Blood Pressure Non-Invasive 143 mm[Hg] LEONARDO REICHFIELD DO [facility] 10-04-2023 10:15-0400 Blood Pressure Location LEONARDO REICHFIELD DO [facility] 10-04-2023 10:15-0400 Blood Pressure Method LEONARDO REICHFIELD DO [facility] 10-04-2023 10:15-0400 Body temperature 98.06 [degF] LEONARDO REICHFIELD DO [facility] 10-04-2023 10:15-0400 Diastolic Blood Pressure Non-Invasive 67 mm[Hg] LEONARDO REICHFIELD DO [facility] 10-04-2023 10:15-0400 Heart rate 84 /min LEONARDO REICHFIELD DO [facility] 10-04-2023 10:15-0400 Respiratory rate 18 /min LEONARDO REICHFIELD DO [facility] 10-04-2023 10:15-0400 Systolic Blood Pressure Non-Invasive 153 mm[Hg] LEONARDO REICHFIELD DO [facility] 09-21-2023 09:46-0400 Blood Pressure Location GOKUL REYES MD [facility] 09-21-2023 09:46-0400 Blood Pressure Method GOKUL REYES MD [facility] 09-21-2023 09:46-0400 Body temperature 98.24 [degF] GOKUL REYES MD [facility] 09-21-2023 09:46-0400 Diastolic Blood Pressure Non-Invasive 62 mm[Hg] GOKUL REYES MD [facility] 09-21-2023 09:46-0400 Heart rate 72 /min GOKUL REYES MD [facility] 09-21-2023 09:46-0400 Respiratory rate 18 /min GOKUL REYES MD [facility] 09-21-2023 09:46-0400 Systolic Blood Pressure Non-Invasive 152 mm[Hg] GOKUL REYES MD [facility] 05-08-2023 13:30-0500 Diastolic Blood Pressure Non-Invasive 75 mm[Hg] DR CHANTAL ZAPIEN MD [facility] 05-08-2023 13:30-0500 Heart rate 81 /min DR CHANTAL ZAPIEN MD [facility] 05-08-2023 13:30-0500 Respiratory rate 14 /min DR CHANTAL ZAPIEN MD [facility] 05-08-2023 13:30-0500 Systolic Blood Pressure Non-Invasive 177 mm[Hg] DR CHANTAL ZAPIEN MD [facility] 05-08-2023 12:42-0500 Diastolic Blood Pressure Non-Invasive 77 mm[Hg] DR CHANTAL ZAPIEN MD [facility] 05-08-2023 12:42-0500 Heart rate 91 /min DR CHANTAL ZAPIEN MD [facility] 05-08-2023 12:42-0500 Systolic Blood Pressure Non-Invasive 177 mm[Hg] DR CHANTAL ZAPIEN MD [facility] 05-08-2023 10:45-0500 Diastolic Blood Pressure Non-Invasive 64 mm[Hg] DR CHANTAL ZAPIEN MD [facility] 05-08-2023 10:45-0500 Heart rate 77 /min DR CHANTAL ZAPIEN MD [facility] 05-08-2023 10:45-0500 Systolic Blood Pressure Non-Invasive 134 mm[Hg] DR CHANTAL ZAPIEN MD [facility] 05-08-2023 10:15-0500 Heart rate 77 /min DR CHANTAL ZAPIEN MD [facility] 05-08-2023 09:06-0500 Body temperature 97.7 [degF] DR CHANTAL ZAPIEN MD [facility] 05-08-2023 09:06-0500 Body weight 59.[address] CHANTAL ZAPIEN MD [facility] 05-08-2023 09:06-0500 Respiratory rate 22 /min DR CHANTAL ZAPIEN MD [facility] NEGATED: Highlighted [id number] 11:06-0400 BMI (Body Mass Index) 24.12 kg/m2 Sophie Durham [facility] Work Phone: NEGATED: Highlighted [id number] 11:06-0400 BP Diastolic 85 mm[Hg] Sophie Durham CHILD CARE ASSISTANT [facility] Work Phone: NEGATED: Highlighted [id number] 11:06-0400 BP Diastolic 83 mm[Hg] Sophie Winklestine CHILD CARE ASSISTANT [facility] Work Phone: NEGATED: Highlighted [id number] 11:06-0400 BP Systolic 152 mm[Hg] Sophie Winklestine CHILD CARE ASSISTANT [facility] Work Phone: NEGATED: Highlighted [id number] 11:06-0400 BP Systolic 169 mm[Hg] Sophie Winklestine CHILD CARE ASSISTANT [facility] Work Phone: NEGATED: Highlighted [id number] 11:06-0400 Height 162.56 cm Sophie Winklestine CHILD CARE ASSISTANT [facility] Work Phone: NEGATED: Highlighted [id number] 11:06-0400 Height 163 cm Sophie Winklestine CHILD CARE ASSISTANT [facility] Work Phone: NEGATED: Highlighted [id number] 11:06-0400 Pulse (Heart Rate) 74 /min Sophie Winklestine CHILD CARE ASSISTANT [facility] Work Phone: NEGATED: Highlighted [id number] 11:06-0400 Weight 63.5 kg Sophie Winklestine CHILD CARE ASSISTANT [facility] Work Phone: NEGATED: Highlighted [id number] 11:06-0400 Weight 64 kg Sophie Winklestine CHILD CARE ASSISTANT [facility] Work Phone: Encounters Encounter Date Encounter Type Care Provider Facility Start: 02-14-2024 End: 02-14-2024 ambulatory LIZZETTE SALES DO Facility[facility] Start: 02-14-2024 End: 02-14-2024 Patient encounter procedure LIZZETTE SALES DO [facility] Start: 12-16-2023 End: 12-16-2023 ambulatory LIZZETTE FAYEY DO Facility:[facility] Start: 11-22-2023 End: 11-26-2023 ambulatory NURIS LEIGH TECHNICAL ASSOCIATE[employer]OCKINGS Facility:[facility] Start: 11-22-2023 End: 11-26-2023 Outreach Lab NURIS LEIGH TECHNICAL ASSOCIATE[employer]ING [employer]OCKINGS [facility] Start: 11-08-2023 End: 11-08-2023 ambulatory LIZZETTE FAYEY DO Facility:[facility] Start: 11-08-2023 End: 11-08-2023 Patient encounter procedure LIZZETTE FAYEY DO [facility] Start: 11-03-2023 End: 11-03-2023 ambulatory LIZZETTE FAYEY DO Facility:[facility] Start: 11-03-2023 End: 11-03-2023 Patient encounter procedure LIZZETTE FAYEY DO [facility] Start: 10-13-2023 End: 10-13-2023 ambulatory BENITO RICHARDSON TECHNICAL ASSOCIATE[employer]INGS Facility:[facility] Start: 10-04-2023 End: 10-04-2023 Emergency department patient visit LEONARDO REBAY DO [facility] Start: 09-30-2023 ambulatory LIZZETTE SALES DO Facil ity:[facility] Start: 09-28-2023 End: 09-28-2023 ambulatory LIZZETTE MÓNICA DO Facility:[facility] Start: 09-24-2023 End: 09-24-2023 ambulatory LEONARDO KAREN TECHNICAL ASSOCIATE[employer]INGS Facility:[facility] Start: 09-24-2023 End: 09-24-2023 Patient encounter procedure LEONARDO KAREN TECHNICAL ASSOCIATE-[employer]ING [employer]OCKINGS [facility] Start: 09-21-2023 End: 09-21-2023 Emergency department patient visit GOKUL REYES MD [facility] Start: 09-13-2023 End: 09-17-2023 ambulatory LEONARDO JONES TECHNICAL ASSOCIATE[employer]INGS Facility:[facility] Start: 09-09-2023 End: 09-09-2023 ambulatory GALE MARROQUIN PA-C Facility:[facility] Start: 09-09-2023 End: 09-09-2023 Patient encounter procedure GALE HENDERSONJOSE LUIS PA-C [facility] Start: 08-03-2023 End: 08-07-2023 ambulatory LIZZETTE SALES DO Facility:[facility] Start: 08-03-2023 End: 08-07-2023 Outreach Lab LIZZETTE SALES DO [facility] Start: 05-13-2023 End: 05-13-2023 ambulatory LIZZETTE SALES DO Facility:[facility] Start: 05-13-2023 End: 05-13-2023 Patient encounter procedure LIZZETTE SALES DO [facility] Start: 05-08-2023 End: 05-08-2023 Emergency department patient visit DR CHANTAL ZAPIEN MD [facility] Start: 05-04-2023 End: 05-08-[address] CHELI BARRIGA DO Facility:[facility] Start: 05-04-2023 End: 05-08-[address] CHELI BARRIGA DO [facility] Start: 08-28-2022 End: 09-01-2022 Outreach Lab LIZZETTE SALES DO [facility] Start: 08-13-2022 End: 08-13-2022 Patient encounter procedure LIZZETTE SALES DO [facility] Start: 08-05-2022 End: 08-09-2022 Outreach Lab LIZZETTE SALES DO [facility] Start: 07-17-2022 End: 07-17-2022 Patient encounter procedure LIZZETTE SALES DO [facility] Start: 07-07-2022 End: 07-07-2022 Patient encounter procedure LIZZETTE SALES DO [facility] Start: 05-12-2022 End: 05-12-2022 Patient encounter procedure LIZZETTE SALES DO [facility] Start: 02-24-2022 End: 02-24-2022 Patient encounter procedure JOSE LUISHAKA TECHNICAL ASSOCIATE-[employer]INGS [facility] Start: 11-25-2021 End: 11-25-2021 Patient encounter procedure LIZZETTE SALES DO [facility] Start: 10-29-2021 End: 10-29-2021 Patient encounter procedure LIZZETTE Monreal MÓNICA DO [facility] Start: 07-04-2021 End: 07-04-2021 Patient encounter procedure LIZZETTE SALES DO [facility] Start: 07-02-2021 End: 07-06-2021 Outreach Lab LIZZETTE SALES DO [facility] Start: 06-03-2021 End: 06-03-2021 Patient encounter procedure RAZIA STRONG DO [facility] Start: 05-12-2021 End: 05-12-2021 Patient encounter procedure LIZZETTE SALES DO [facility] Start: 05-06-2021 End: 05-06-2021 Patient encounter procedure LIZZETTE Monreal MÓNICA DO [facility] Procedures Date Procedure Procedure Detail Performing Clinician Start: 10-05-2017 End: 10-05-2017 CERVICAL COLLAR SERPENTINE (BREG) Tacos Estes DO Work Phone: Abdominal hysterectomy RON LYNCHLAY DO Appendectomy LIZZETTE SALES DO Bilateral salpingect lina with oophorectomy LIZZETTE SALES DO Refusal of treatment by patient Procedure refused LIZZETTE SALES DO Tonsillectomy LIZZETTE SALES DO Umbilical hernia (disorder) LIZZETTE SALES DO Plan of Treatment Date Care Activity Detail Author Patient Education \cps-sql1\CPS_ PtEducation\htn .pdf [facility] Work Phone: Immunizations Immunization Date Immunization Notes Care Provider Fa cili 05-06-2021 COVID-19, mRNA, LNP- S, PF, 100 mcg/ 0.5 mL dose; Translations: [Moderna COVID-19 Vaccine] LIZZETTE SALES DO [facility] 09-25-2020 zoster vaccine recombinant LIZZETTE SALES DO [facility] 08-13-2020 COVID-19, mRNA, LNP- S, PF, 100 mcg/ 0.5 mL dose; Translations: [Moderna COVID-19 Vaccine] LIZZETTE MÓNICA DO [facility] 07-16-2020 COVID-19, mRNA, LNP- S, PF, 100 mcg/ 0.5 mL dose; Translations: [Moderna COVID-19 Vaccine] LIZZETTE MÓNICA DO [facility] 04-19-2020 zoster vaccine recombinant LIZZETTE SALES DO [facility] 04-19-2020 zoster vaccine, live LIZZETTE SALES DO [facility] Comment on above: Result Comment: [] Shingrix 07-09-2015 pneumococcal conjuga te vaccine, 13 valent LIZZETTECAROL SALES DO [facility] 12-07-2013 tetanus toxoid, redu xiao diphtheria toxoid, and acellular pertussis vaccine, adsorbed LIZZETTE SALES DO [facility] 08-02-2013 pneumococcal polysaccharide vaccine, 23 valent LIZZETTE SALES DO [facility] 12-15-2012 zoster vaccine, live LIZZETTE SALES DO [facility] 07-01-2009 hepatitis A and hepatitis B vaccine LIZZETTE SALES DO [facility] 05-21-2009 adenovirus, type 4 a nd type 7, live, oral LIZZETTE SALES DO [facility] 05-21-2009 hepatitis A vaccine, adult dosage LIZZETTE SALES DO [facility] 05-21-2009 hepatitis B vaccine, adult dosage LIZZETTE SALES DO [facility] No information available. Sophie Durham LPN [facility] Work Phone: Payers Date Payer Category Payer Unknown [id number] 1940 Unknown [id number] 2.16.8 [id number]. 1940 Unknown [id number] 2.16.8 40.1.275617.3.579.2. 1939 Unknown [id number] 2.16.8 40.1.981718.3.579.2. 1939 Unknown [id number] 2.16.8 40.1.673695.3.579.2. 1939 Unknown [id number] 2.16.8 40.1.840152.3.579.2. 1940 Unknown [id number] 2.16.8 40.1.661695.3.579.2. 1940 Unknown [id number] 2.16.8 40.1.615985.3.579.2. 1940 Unknown [id number] 2.16.8 40.1.983227.3.579.2. 1940 Unknown [id number] 2.16.8 40.1.653518.3.579.2.627 1940 Unknown [id number] 2.16.8 40.1.227288.3.579.2.627 1940 Unknown [id number] 2.16.8 40.1.094606.3.579.2.627 1940 Unknown [id number] 2.16.8 40.1.764184.3.579.2.627 1940 Unknown [id number] 2.16.8 40.1.596048.3.579.2.627 1940 Unknown [id number] 2.16.8 40.1.762338.3.579.2.62 1940 Unknown [id number] 2.16.8 40.1.082875.3.579.2.627 1940 Unknown [id number] 2.16.8 40.1.759878.3.579.2.62 1940 Unknown [id number] 2.16.8 [id number] Social History Date Type Detail Facility Start: 04-09-2020 Never smoked t obacco (finding) [facility] Sex Assigned At Female [facility] NEGATED: Highlighted rowStart: 10-05-2017 End: 10-05-2017 Alcohol use ETOH USE No [facility] Work Phone: NEGATED: Highlighted rowStart: 10-05-2017 End: 10-05-2017 Details of drug misuse behavior DRUG USE No [facility] Work Phone: NEGATED: Highlighted rowStart: 10-05-2017 End: 10-05-2017 How many days of moderate to strenuous exercise, like a brisk walk, did you do in the last 7 days? EXERCISEFREQ 2 days per week [facility] Work Phone: NEGATED: Highlighted rowStart: 10-05-2017 End: 10-05-2017 Assertion Never smoker [facility] Work Phone: Functional Status Date Assessment Result Facility 10-04-2023 Functional Status Independent [facility] 10-04-2023 Functional Status ID band on, Call device within reach, Bed in low position, Wheels locked, Upper/Half-Length side-rails up, Visitor at bedside, Safety level maintained [facility] 09-21-2023 Functional Status Independent [facility] 09-21-2023 Functional Status ID band on, Call device within reach, Bed in low position, Wheels locked, Upper/Half-Length side-rails up, Visitor at bedside, Safety level maintained [facility] 05-08-2023 Functional Status Assistive Device None [facility] 05-08-2023 Functional Status Repositions self [facility] Mental Status Date Assessment Result Facility 10-04-2023 Mental Status Orientation Oriented x 4 [facility] 10-04-2023 Mental Status [facility] 09-21-2023 Mental Status Orientation Oriented x 4 [facility] 09-21-2023 Mental Status [facility] 05-08-2023 Mental Status Orientation Oriented x 4 [facility] Clinical Notes 07-17-2022 to 11-23-2023 RadiologyLaboratoryRadiologyRadiologyLaboratoryRadiologyLaboratoryRadiologyLabor atoryRadiologyLaboratoryRadiologyRadiologyRadiologyRadiologyRadiology Note Date & Type Note Facility 11-23-2023 Note . MICRO - Microbiology PROCEDURE: Urine Culture [*1] SOURCE: Urine, Clean Catch BODY SITE: COLLECTED DATE/TIME: 11/22/2023 08:25 EDT RECEIVED DATE/TIME: 11/22/2023 19:34 EDT START DATE/TIME: 11/22/2023 19:34 EDT FREE TEXT SOURCE: FINAL REPORTS Final Report [] Verified Date/Time/Personnel: 11/23/2023 14:08 EDT <10,000 cfu/ml. No Significant growth. Sensitivity not indicated. Performing Locations *1: This test was performed at: [facility], [address] [place] [address], [id number] , [facility] ([place]) 11-08-2023 Note ORIGINAL EXAMINATION: CT OF THE ABDOMEN AND PELVIS WITH CONTRAST11/08/2023 2:17 pm TECHNIQUE: CT of the abdomen and pelvis was performed with the administration of intravenous contrast. Multiplanar reformatted images are provided for review. Automated exposure control, iterative reconstruction, and/or weight based adjustment of the mA/kV was utilized to reduce the radiation dose to as low as reasonably achievable. COMPARISON: 10/04/2023 CT HISTORY: ORDERING SYSTEM PROVIDED HISTORY: Reason for Exam: left sided abd pain for 6 weeks, bloating, diarrhea. Status post hysterectomy, appendectomy umbilical hernia repair. FINDINGS: Provided images of the lower thorax are unremarkable. Loss of height is present at L3 and L2, with slight progression at L2 since the prior exam, age indeterminate. Cement is present at these levels from augmentation and this is an interval finding. Stable appearing grade 1 anterolisthesis at L4-L5. Chronic degenerative changes of the spine. The visualized esophagus, stomach, and duodenum are unremarkable. The liver is unremarkable in size, contour, and attenuation. There is no intra or extrahepatic biliary duct dilation. No focal mass identified. The gallbladder, pancreas, and adrenal glands are unremarkable. Stable subcentimeter simple splenic cyst. The kidneys enhance symmetrically without evidence of hydronephrosis or mass. The ureters are normal course and caliber. There is no definitive evidence of urolithiasis. The urinary bladder is well-distended without wall thickening or focal mass. The uterus is within normal limits. The visualized aorta arthrosclerotic but is nonaneurysmal. Mild retroperitoneal adenopathy is present. This is noted at the left para-aortic and aortocaval spaces. The largest discrete node is left para-aortic, 1.4 cm. The finding is new since the previous study. The GI tract exhibits no acute abnormalities. The appendix is surgically absent. No pathologically enlarged retroperitoneal, mesenteric, or pelvic lymph nodes are identified. There is no free intraperitoneal air or fluid. IMPRESSION: No acute process within the abdomen or pelvis. Similar appearing compression lumbar deformities. Mild retroperitoneal adenopathy, new since the prior exam. These nodes could be reactive or hyperplastic, although lymphoproliferative disorder must be considered as well. I have personally reviewed the images of this examination and agree with the resident's findings and interpretation. Interpreted by: Nii Carmen MD Preliminary Report By: Markell Jimenez Electronically signed By Nii Carmen MD Dictated Date: 11/08/2023 2:48:52 PM Prelim Date: 11/08/2023 3:25:32 PM Sign Date: 11/08/2023 3:25:32 PM Ordering Provider: [facility] 11-03-2023 Note ORIGINAL EXAMINATION: ONE SUPINE XRAY VIEW(S) OF THE ABDOMEN11/03/2023 10:14 am COMPARISON: CT abdomen pelvis 10/04/2023 HISTORY: ORDERING SYSTEM PROVIDED HISTORY: Reason for Exam: pain FINDINGS: Nonobstructive bowel gas pattern. No renal calculi or calculi along the expected course of the bilateral ureters identified. Slight levocurvature of the lumbar spine is present. Treated L1 and L2 vertebral body deformities. Degenerative changes of the lumbar spine most pronounced at L4-L5. Prominent costochondral calcifications are present. IMPRESSION: Nonobstructive bowel gas pattern. Treated vertebral body deformities. I have personally reviewed the images of this examination and agree with the resident's findings and interpretation. Interpreted by: Judy Guerra MD Preliminary Report By: Emil Leonard Electronically signed By Judy Guerra MD Dictated Date: 11/03/2023 10:37:38 AM Prelim Date: 11/03/2023 10:51:20 AM Sign Date: 11/03/2023 10:51:20 AM Ordering Provider: [facility] 10-04-2023 Hospital Discharge instructions Patient Education 10/04/2023 12:45:26 AA Ema HALL (CUSTOM) Result type:CT Abd/Pelvis w/ IV Contrast Only Result date:October 04, 2023 11:49 EDT Result status:Auth (Verified) Result title:CT ABD/PELVIS W/ IV CONTRAST ONLY Performed by:NII CARMEN MD on October 04, 2023 11:37 EDT Cosigned by:NII CARMEN MD Verified by:NII CARMEN MD on October 04, 2023 11:49 EDT Encounter info:[id number], [facility], Emergency, 10/04/2023 - Contributor system:[employer] * Final Report * [id number] ORIGINAL EXAMINATION: CT OF THE ABDOMEN AND PELVIS WITH CONTRAST 10/04/2023 11:51 am TECHNIQUE: CT of the abdomen and pelvis was performed with the administration of intravenous contrast. Multiplanar reformatted images are provided for review. Automated exposure control, iterative reconstruction, and/or weight based adjustment of the mA/kV was utilized to reduce the radiation dose to as low as reasonably achievable. COMPARISON: September 24, 2023 HISTORY: ORDERING SYSTEM PROVIDED HISTORY: Reason for Exam: abdominal pain FINDINGS: There is some compression deformity of the superior L3 endplate, a stable finding since the previous exam. There is interval but age indeterminate mild superior L4 endplate compression. Degenerative changes are noted in the spine. No definite acute osseous abnormality seen. Small areas of scarring are visible at the lung bases. A subcentimeter cyst is noted in the spleen. The liver and spleen are otherwise unremarkable. The adrenal glands and pancreas appear normal. No focal kidney abnormality is evident. No adenopathy, free air or free fluid is evident. The urinary bladder is unremarkable. No GI tract abnormality seen. No additional contributory abnormality. IMPRESSION: No acute abnormality identified. Interval but age-indeterminate loss of height at the superior L4 endplate. Interpreted by: Nii Carmen MD Preliminary Report By: Nii Carmen MD Electronically signed By Nii Carmen MD Dictated Date: 10/04/2023 12:03:17 PM Prelim Date: 10/04/2023 12:06:02 PM Sign Date: 10/04/2023 12:06:02 PM Ordering Provider: LEONARDO GUIDRY IMAGE This document has an image Document Released: 05/24/2006 Document Revised: 05/10/2013 Document Reviewed: 05/25/2014 Exit[employer] Patient Information 2015 [employer]. This information is not intended to replace advice given to you by your health care provider. Make sure you discuss any questions you have with your health care provider. 10/04/2023 12:45:16 Back and Neck Pain, General General Neck and Back Pain Both neck and back pain are usually caused by injury to the muscles or ligaments of the spine. Sometimes the disks that separate each bone of the spine may cause pain by pressing on a nearby nerve. Back and neck pain may appear after a sudden twisting or bending force (such as in a car accident), or sometimes after a simple awkward movement. In either case, muscle spasm is often present and adds to the pain. Acute neck and back pain usually gets better in 1 to 2 weeks. Pain related to disk disease, arthritis in the spinal joints or spinal stenosis (narrowing of the spinal canal) can become chronic and last for months or years. Back and neck pain are common problems. Most people feel better in 1 or 2 weeks, and most of the rest in 1 to 2 months. Most people can remain active. People have and describe pain differently. Pain can be sharp, stabbing, shooting, aching, cramping, or burning Movement, standing, bending, lifting, sitting, or walking may worsen the pain Pain can be localized to one spot or area, or it can be more generalized Pain can spread or radiate upwards, downwards, to the front, or go down your arms Muscle spasm may occur. Most of the time mechanical problems with the muscles or spine cause the pain. it is usually caused by an injury, whether known or not, to the muscles or ligaments. While illnesses can cause back pain, it is usually not caused by a serious illness. Pain is usually related to physical activity, whether sports, exercise, work, or normal activity. Sometimes it can occur without an identifiable cause. This can happen simply by stretching or moving wrong, without noting pain at the time. Other causes include: Overexertion, lifting, pushing, pulling incorrectly or too aggressively. Sudden twisting, bending or stretching from an accident (car or fall), or accidental movement. Poor posture Poor conditioning, lack of regular exercise Spinal disc disease or arthritis Stress , or illness like appendicitis, bladder or kidney infection, pelvic infections Home care For neck pain: Use a comfortable pillow that supports the head and keeps the spine in a neutral position. The position of the head should not be tilted forward or backward. When in bed, try to find a position of comfort. A firm mattress is best. Try lying flat on your back with pillows under your knees. You can also try lying on your side with your knees bent up towards your chest and a pillow between your knees. At first, do not try to stretch out the sore spots. If there is a strain, it is not like the good soreness you get after exercising without an injury. In this case, stretching may make it worse. Don't sit for long periods, as in long car rides or other travel. This puts more stress on the lower back than standing or walking. During the first 24 to 72 hours after an injury, apply an ice pack to the painful area for 20 minutes and then remove it for 20 minutes over a period of 60 to 90 minutes or several times a day. You can alternate ice and heat therapies. Talk with your healthcare provider about the best treatment for your back or neck pain. As a safety precaution, do not use a heating pad at bedtime. Sleeping with a heating pad can lead to skin gautma or tissue damage. Therapeutic massage can help relax the back and neck muscles without stretching them. Be aware of safe lifting methods and do not lift anything over 15 pounds until all the pain is gone. Medicines Talk to your healthcare provider before using medicine, especially if you have other medical problems or are taking other medicines. You may use fibq-qyt-aojsbsf medicine to control pain, unless another pain medicine was prescribed. If you have chronic conditions like diabetes, liver or kidney disease, stomach ulcers, gastrointestinal bleeding, or are taking blood thinner medicines. Be careful if you are given pain medicines, narcotics, or medicine for muscle spasm. They can cause drowsiness, and can affect your coordination, reflexes, and judgment. Do not drive or operate heavy machinery. Follow-up care Follow up with your healthcare provider, or as advised. Physical therapy or further tests may be needed. If X-rays were taken, you will be notified of any new findings that may affect your care. Call 911 Call 911 if any of the following occur: Trouble breathing Confusion Very drowsy or trouble awakening Fainting or loss of consciousness Rapid or very slow heart rate Loss of bowel or bladder control When to seek medical advice Call your healthcare provider right away if any of these occur: Pain becomes worse or spreads into your arms or legs Weakness, numbness or pain in one or both arms or legs Numbness in the groin area Difficulty walking Fever of 100.4 F (38 C) or higher, or as directed by your healthcare provider [id number] [employer]. [address] [place] [address], [place] [address]. All rights reserved. This information is not intended as a substitute for professional medical care. Always follow your healthcare professional's instructions. 10/04/2023 10:31:36 Abdominal Pain Abdominal Pain Abdominal pain is pain in the stomach or belly area. Everyone has this pain from time to time. In many cases it goes away on its own. But abdominal pain can sometimes be due to a serious problem, such as appendicitis. So it s important to know when to get help. Causes of abdominal pain There are many possible causes of abdominal pain. Common causes in adults include: Constipation, diarrhea, or gas Stomach acid flowing back up into the esophagus (acid reflux or heartburn) Severe acid reflux, called GERD (gastroesophageal reflux disease) A sore in the lining of the stomach or small intestine (peptic ulcer) Inflammation of the gallbladder, liver, or pancreas Gallstones or kidney stones Appendicitis Intestinal blockage An internal organ pushing through a muscle or other tissue (hernia) Urinary tract infections In women, menstrual cramps, fibroids, ovarian cysts, pelvic inflammatory disease, or endometriosis Inflammation or infection of the intestines, including Crohn's disease and ulcerative colitis Irritable bowel syndrome Diagnosing the cause of abdominal pain Your healthcare provider will give you a physical exam help find the cause of your pain. If needed, you will have tests. Belly pain has many possible causes. So it can be hard to find the reason for your pain. Giving details about your pain can help. Tell your provider where and when you feel the pain, and what makes it better or worse. Also let your provider know if you have other symptoms such as: Fever Tiredness Upset stomach (nausea) Vomiting Changes in bathroom habits Blood in the stool or black, tarry stool Weight loss that you can't explain (involuntary weight loss?) Also report any family history of stomach or intestinal problems, or cancers. Tell your provider about all your alcohol use and drug use. Tell your provider about all medicines you use, including herbs, vitamins, and supplements. Treating abdominal pain Some causes of pain need emergency medical treatment right away. These include appendicitis or a bowel blockage. Other problems can be treated with rest, fluids, or medicines. Your healthcare provider can give you specific instructions for treatment or self-care based on what is causing your pain. If you have vomiting or diarrhea, sip water or other clear fluids. When you are ready to eat solid foods again, start with small amounts of iegf-vz-vcrrgq, low-fat foods. These include apple sauce, toast, or crackers. When to get medical care Call 911 or go to the hospital right away if you: Can t pass stool and are vomiting Are vomiting blood or have bloody diarrhea or black, tarry diarrhea Have chest, neck, or shoulder pain Feel like you might pass out Have pain in your shoulder blades with nausea Have sudden, severe belly pain Have new, severe pain unlike any you have felt before Have a belly that is rigid, hard, and hurts to touch Call your healthcare provider if you have: Pain for more than 5 days Bloating for more than 2 days Diarrhea for more than 5 days A fever of 100.4 F (38 C) or higher, or as directed by your healthcare provider Pain that gets worse Weight loss for no reason Continued lack of appetite Blood in your stool How to prevent abdominal pain Here are some tips to help prevent abdominal pain: Eat smaller amounts of food at each meal. Don't eat greasy, fried, or other high-fat foods. Don't eat foods that give you gas. Exercise regularly. Drink plenty of fluids. To help prevent GERD symptoms: Quit smoking. Reduce alcohol and foods that increase stomach acid. Don't use aspirin or guta-deb-ayckeyj pain and fever medicines, if possible. This includes nonsteroidal anti-inflammatory drugs (NSAIDs). Lose excess weight. Finish eating at least 2 hours before you go to bed or lie down. Raise the head of your bed. [id number] [employer] [address] [place] [address]. All rights reserved. This information is not intended as a substitute for professional medical care. Always follow your healthcare professional's instructions. Follow Up Care 10/04/2023 10:06:48 With:AWAIS SUN MD Address: [address] [phone] When:2-4 days With:your back doctor Address: When:2-4 days With:Go to emergency room if symptoms worsen Address:Unknown When:2-4 days With:LIZZETTE SALES DO Address: [address] [place] [phone] When:2-4 days [facility] 10-04-2023 Note Discharge Instructions Thank you for allowing [facility] to assist you with your healthcare needs. The following is important discharge information regarding your hospital visit. Diagnosis from Today's Visit Abdominal pain Abdominal pain Back pain Compression fracture What to Do Next Instructions from Your Care Team Take Bentyl as needed for your abdominal pain. Follow-up with your primary care provider. Follow-up with Dr. Sun of GI if continued pain. Your CT here did show compression deformity of superior endplate of L3 and L4 follow-up with your back doctor. You stated you are scheduled for an MRI later this week. Return emergency department if you develop worsening symptoms or any other care concern. No qualifying data available. Post Acute Orders No qualifying data available. You Need to Schedule the Following Appointments Follow Up with AWAIS SUN MD When Within 2-4 days Where: [address] [place] [address]- [phone] Follow Up with your back doctor When Within 2-4 days Where: Follow Up with Go to emergency room if symptoms worsen When Within 2-4 days Follow Up with LIZZETTE SALES DO When Within 2-4 days Where: [address] [place] [address]- [phone] Allergies NKA Medications Please ask your primary doctor or pharmacist before taking any other medication not listed, including over the counter drugs, herbal medications, vitamins and or supplements as they may interact with your home medications. What How Much When Why Instructions Last Dose New dicyclomine (dicyclomine 10 mg oral capsule) 1 cap by mouth Three (3) times a day Duration: 5 Days Printed Prescription New dicyclomine (dicyclomine 20 mg oral tablet) 1 tab(s) by mouth Three (3) times a day Duration: 7 Days Printed Prescription Unchanged ascorbic acid (Vitamin C) 100 Milligram Chewed Once a day Unchanged calcium carbonate (calcium (as carbonate) 600 mg oral tablet) 1 tab(s) by mouth Once a day Unchanged cholecalciferol (Vitamin D3 400 intl units oral capsule) 1 cap by mouth Every day Unchanged chromium picolinate (chromium picolinate 200 mcg oral tablet) 1 tab(s) by mouth Every day Unchanged cyanocobalamin (Vitamin B12) takes one every other day Unchanged levothyroxine (levothyroxine 88 mcg (0.088 mg) oral tablet) 1 tab(s) by mouth Once a day Hypothyroid 1 tablet by mouth daily except 2 tablets by mouth on Tuesdays and Fridays. Unchanged losartan (losartan 50 mg oral tablet) 1 tab(s) by mouth Once a day Hypertension High blood pressure Unchanged lutein (lutein 20 mg oral capsule) 1 cap by mouth Once a day Unchanged magnesium oxide (Magnesium 250 mg tablet) by mouth Once a day Unchanged meloxicam (Mobic 15 mg oral tablet) 1 tab(s) by mouth Once a day Unchanged zanubrutinib (Brukinsa 80 mg oral capsule) 2 cap by mouth Two (2) times a day Please take this list to your next doctor s visit. Bring all medications you take, including over the counter medications, herbals and other supplements with you to your doctor s visit. Patients and families are reminded to discard old lists and to update any records with all medication providers or retail pharmacies. Education Materials Result type: CT Abd/Pelvis w/ IV Contrast Only Result date: October 04, 2023 11:49 EDT Result status: Auth (Verified) Result title: CT ABD/PELVIS W/ IV CONTRAST ONLY Performed by: NII CARMEN MD on October 04, 2023 11:37 EDT Cosigned by: NII CARMEN MD Verified by: NII CARMEN MD on October 04, 2023 11:49 EDT Encounter info: [id number], [facility], Emergency, 10/04/2023 - Contributor system: [employer] * Final Report * [id number] ORIGINAL EXAMINATION: CT OF THE ABDOMEN AND PELVIS WITH CONTRAST 10/04/2023 11:51 am TECHNIQUE: CT of the abdomen and pelvis was performed with the administration of intravenous contrast. Multiplanar reformatted images are provided for review. Automated exposure control, iterative reconstruction, and/or weight based adjustment of the mA/kV was utilized to reduce the radiation dose to as low as reasonably achievable. COMPARISON: September 24, 2023 HISTORY: ORDERING SYSTEM PROVIDED HISTORY: Reason for Exam: abdominal pain FINDINGS: There is some compression deformity of the superior L3 endplate, a stable finding since the previous exam. There is interval but age indeterminate mild superior L4 endplate compression. Degenerative changes are noted in the spine. No definite acute osseous abnormality seen. Small areas of scarring are visible at the lung bases. A subcentimeter cyst is noted in the spleen. The liver and spleen are otherwise unremarkable. The adrenal glands and pancreas appear normal. No focal kidney abnormality is evident. No adenopathy, free air or free fluid is evident. The urinary bladder is unremarkable. No GI tract abnormality seen. No additional contributory abnormality. IMPRESSION: No acute abnormality identified. Interval but age-indeterminate loss of height at the superior L4 endplate. Interpreted by: Nii Carmen MD Preliminary Report By: Nii Carmen MD Electronically signed By Nii Carmen MD Dictated Date: 10/04/2023 12:03:17 PM Prelim Date: 10/04/2023 12:06:02 PM Sign Date: 10/04/2023 12:06:02 PM Ordering Provider: LEONARDO GUIDRY IMAGE This document has an image Document Released: 05/24/2006 Document Revised: 05/10/2013 Document Reviewed: 05/25/2014 Exit[employer] Patient Information 2015 [employer]. This information is not intended to replace advice given to you by your health care provider. Make sure you discuss any questions you have with your health care provider. General Neck and Back Pain Both neck and back pain are usually caused by injury to the muscles or ligaments of the spine. Sometimes the disks that separate each bone of the spine may cause pain by pressing on a nearby nerve. Back and neck pain may appear after a sudden twisting or bending force (such as in a car accident), or sometimes after a simple awkward movement. In either case, muscle spasm is often present and adds to the pain. Acute neck and back pain usually gets better in 1 to 2 weeks. Pain related to disk disease, arthritis in the spinal joints or spinal stenosis (narrowing of the spinal canal) can become chronic and last for months or years. Back and neck pain are common problems. Most people feel better in 1 or 2 weeks, and most of the rest in 1 to 2 months. Most people can remain active. People have and describe pain differently. Pain can be sharp, stabbing, shooting, aching, cramping, or burning Movement, standing, bending, lifting, sitting, or walking may worsen the pain Pain can be localized to one spot or area, or it can be more generalized Pain can spread or radiate upwards, downwards, to the front, or go down your arms Muscle spasm may occur. Most of the time mechanical problems with the muscles or spine cause the pain. it is usually caused by an injury, whether known or not, to the muscles or ligaments. While illnesses can cause back pain, it is usually not caused by a serious illness. Pain is usually related to physical activity, whether sports, exercise, work, or normal activity. Sometimes it can occur without an identifiable cause. This can happen simply by stretching or moving wrong, without noting pain at the time. Other causes include: Overexertion, lifting, pushing, pulling incorrectly or too aggressively. Sudden twisting, bending or stretching from an accident (car or fall), or accidental movement. Poor posture Poor conditioning, lack of regular exercise Spinal disc disease or arthritis Stress , or illness like appendicitis, bladder or kidney infection, pelvic infections Home care For neck pain: Use a comfortable pillow that supports the head and keeps the spine in a neutral position. The position of the head should not be tilted forward or backward. When in bed, try to find a position of comfort. A firm mattress is best. Try lying flat on your back with pillows under your knees. You can also try lying on your side with your knees bent up towards your chest and a pillow between your knees. At first, do not try to stretch out the sore spots. If there is a strain, it is not like the good soreness you get after exercising without an injury. In this case, stretching may make it worse. Don't sit for long periods, as in long car rides or other travel. This puts more stress on the lower back than standing or walking. During the first 24 to 72 hours after an injury, apply an ice pack to the painful area for 20 minutes and then remove it for 20 minutes over a period of 60 to 90 minutes or several times a day. You can alternate ice and heat therapies. Talk with your healthcare provider about the best treatment for your back or neck pain. As a safety precaution, do not use a heating pad at bedtime. Sleeping with a heating pad can lead to skin gautam or tissue damage. Therapeutic massage can help relax the back and neck muscles without stretching them. Be aware of safe lifting methods and do not lift anything over 15 pounds until all the pain is gone. Medicines Talk to your healthcare provider before using medicine, especially if you have other medical problems or are taking other medicines. You may use yoso-rgk-tqbzvgo medicine to control pain, unless another pain medicine was prescribed. If you have chronic conditions like diabetes, liver or kidney disease, stomach ulcers, gastrointestinal bleeding, or are taking blood thinner medicines. Be careful if you are given pain medicines, narcotics, or medicine for muscle spasm. They can cause drowsiness, and can affect your coordination, reflexes, and judgment. Do not drive or operate heavy machinery. Follow-up care Follow up with your healthcare provider, or as advised. Physical therapy or further tests may be needed. If X-rays were taken, you will be notified of any new findings that may affect your care. Call 911 Call 911 if any of the following occur: Trouble breathing Confusion Very drowsy or trouble awakening Fainting or loss of consciousness Rapid or very slow heart rate Loss of bowel or bladder control When to seek medical advice Call your healthcare provider right away if any of these occur: Pain becomes worse or spreads into your arms or legs Weakness, numbness or pain in one or both arms or legs Numbness in the groin area Difficulty walking Fever of 100.4 F (38 C) or higher, or as directed by your healthcare provider 7313-[address] [employer]. [address] [place] [address]. All rights reserved. This information is not intended as a substitute for professional medical care. Always follow your healthcare professional's instructions. Abdominal Pain Abdominal pain is pain in the stomach or belly area. Everyone has this pain from time to time. In many cases it goes away on its own. But abdominal pain can sometimes be due to a serious problem, such as appendicitis. So it s important to know when to get help. Causes of abdominal pain There are many possible causes of abdominal pain. Common causes in adults include: Constipation, diarrhea, or gas Stomach acid flowing back up into the esophagus (acid reflux or heartburn) Severe acid reflux, called GERD (gastroesophageal reflux disease) A sore in the lining of the stomach or small intestine (peptic ulcer) Inflammation of the gallbladder, liver, or pancreas Gallstones or kidney stones Appendicitis Intestinal blockage An internal organ pushing through a muscle or other tissue (hernia) Urinary tract infections In women, menstrual cramps, fibroids, ovarian cysts, pelvic inflammatory disease, or endometriosis Inflammation or infection of the intestines, including Crohn's disease and ulcerative colitis Irritable bowel syndrome Diagnosing the cause of abdominal pain Your healthcare provider will give you a physical exam help find the cause of your pain. If needed, you will have tests. Belly pain has many possible causes. So it can be hard to find the reason for your pain. Giving details about your pain can help. Tell your provider where and when you feel the pain, and what makes it better or worse. Also let your provider know if you have other symptoms such as: Fever Tiredness Upset stomach (nausea) Vomiting Changes in bathroom habits Blood in the stool or black, tarry stool Weight loss that you can't explain (involuntary weight loss?) Also report any family history of stomach or intestinal problems, or cancers. Tell your provider about all your alcohol use and drug use. Tell your provider about all medicines you use, including herbs, vitamins, and supplements. Treating abdominal pain Some causes of pain need emergency medical treatment right away. These include appendicitis or a bowel blockage. Other problems can be treated with rest, fluids, or medicines. Your healthcare provider can give you specific instructions for treatment or self-care based on what is causing your pain. If you have vomiting or diarrhea, sip water or other clear fluids. When you are ready to eat solid foods again, start with small amounts of yrqy-xo-pvsohm, low-fat foods. These include apple sauce, toast, or crackers. When to get medical care Call 911 or go to the hospital right away if you: Can t pass stool and are vomiting Are vomiting blood or have bloody diarrhea or black, tarry diarrhea Have chest, neck, or shoulder pain Feel like you might pass out Have pain in your shoulder blades with nausea Have sudden, severe belly pain Have new, severe pain unlike any you have felt before Have a belly that is rigid, hard, and hurts to touch Call your healthcare provider if you have: Pain for more than 5 days Bloating for more than 2 days Diarrhea for more than 5 days A fever of 100.4 F (38 C) or higher, or as directed by your healthcare provider Pain that gets worse Weight loss for no reason Continued lack of appetite Blood in your stool How to prevent abdominal pain Here are some tips to help prevent abdominal pain: Eat smaller amounts of food at each meal. Don't eat greasy, fried, or other high-fat foods. Don't eat foods that give you gas. Exercise regularly. Drink plenty of fluids. To help prevent GERD symptoms: Quit smoking. Reduce alcohol and foods that increase stomach acid. Don't use aspirin or mksy-onx-nvzwgbw pain and fever medicines, if possible. This includes nonsteroidal anti-inflammatory drugs (NSAIDs). Lose excess weight. Finish eating at least 2 hours before you go to bed or lie down. Raise the head of your bed. [id number] [employer]. [address] [place] [address], [place] [address]. All rights reserved. This information is not intended as a substitute for professional medical care. Always follow your healthcare professional's instructions. Additional Information VACCINATE! IT SAVES LIVES! Members of the community who have not yet received the COVID-19 vaccine and would like to receive it can visit one of [facility] vaccine clinics. There are many vaccine clinic locations within the [facility]. For locations and available times, please visit [email or web address].[email or web address] [email or web address] It is important to note that some COVID mobile vaccine clinics are held outdoors and may be canceled in rainy or stormy conditions. To learn more about pediatric vaccinations (ages 5-11), we invite you to visit the [facility] webpage. https://www.[facility].org/pag es/5046-Pouze-Wlykvawpatx-Frequent jc-Botcm-Lstrnyctd.html To learn more about the COVID-19 vaccine, we invite you to visit the CDC website for a list of frequently asked questions. https://www.cdc.gov/coronavirus/ 19-ncov/vaccines/faq.html [facility] Patient Portal Access Instructions: Stay connected with your healthcare team and access your personal medical information anytime with the [facility] Patient Portal. If you would like a full copy of your medical records please contact the [facility] Medical Records Department Wednesday through Wednesday between 8a.m. and 4:30p.m. Please follow the directions below to access the portal: 1.Access the email account you provided upon registration to the [facility].2.Look for an invitation email from [facility].3.Open the email and access the invitation link: Accept Invitation to [facility].Fill in the required shah to create your account. Sign into www.[email or web address] with your username and password that you created in the above steps to stay up to date. You can then view a summary of results, a summary of your visits, and the ability to download your summaries to your computer or send the information securely to a physician. Remember that your healthcare information is confidential, so carefully consider who you will allow to register on the [employer] [facility] Patient Portal for access to your information. You can also access the [employer] Patient Portal on the [facility] denis. Simply click on Health Records under Health Data and then click on the [employer] logo. HOW TO SAFELY DISPOSE OF PRESCRIPTION MEDICATIONS Please use one of the following methods to safely dispose of your unused medications. 1.Use a drug disposal kit: the drug disposal pouch allows you to safely discard your old and unused drugs. Ask your nurse to give you one when you are discharged.2.Visit a local take-back location: Many local pharmacies and police departments have programs that collect old and unwanted prescription drugs. Call your local pharmacy or go to http://[employer]Dox.Comprimato/3T4Uw4j to find one close to you.3.Make use of household items: Use cat litter or old coffee grounds to dispose medications if other options are not available. Mix your drugs with these household products, seal them in an airtight container and throw it into the garbage. Call [facility]: [phone] to be sure your drugs can be disposed of in this way. Some medicines may require a different approach.4.Never flush your medications down the toilet. IF YOU HAVE BEEN PRESCRIBED AN OPIOIDS FOR PAIN If you have been prescribed an opioid (such as hydrocodone, oxycodone or morphine), it is critical to understand the possible side effects and risks of opioid pain medications. Even when taken as directed, opioids can have several side effects including: Tolerance, meaning you might need to take more of a medication for the same pain relief. Nausea, vomiting and/or constipation. Sleepiness, dizziness, dry mouth, confusion, depression or itching. Physical dependence, meaning you have withdrawal symptoms when a medication is stopped ? this can develop within a few days. KNOW YOUR RESPONSIBILITIES It is important to know exactly how much and how often to take the opioid pain medications you are prescribed. Never take opioids in higher amounts or more often than prescribed. Do not combine opioids with alcohol or other drugs that cause drowsiness, such as benzodiazepines, also known as benzos, including diazepam and alprazolam, muscle relaxants or sleep aids. Never sell or share prescription opioids. This is illegal. Store opioids in a secure place and out of reach of others (including children, family, friends and visitors). The last page(s) of this document has been signed and retained as a CHART COPY Signatures Patient Education Materials AA Blank DI (CUSTOM) Back and Neck Pain, General Abdominal Pain Medication Leaflets My discharge plan and instructions have been reviewed and explained to me and IBALA CAROLYN M understand my current condition and have read and understand these discharge instructions. I have received a written copy of the plan/instructions. If I have questions, I am aware that I should contact my doctor. 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 Multiplanar reformatted images are provided for review. Automated exposure control, iterative reconstruction, and/or weight based adjustment of the mA/kV was utilized to reduce the radiation dose to as low as reasonably achievable. COMPARISON: September 24, 2023 HISTORY: ORDERING SYSTEM PROVIDED HISTORY: Reason for Exam: abdominal pain FINDINGS: There is some compression deformity of the superior L3 endplate, a stable finding since the previous exam. There is interval but age indeterminate mild superior L4 endplate compression. Degenerative changes are noted in the spine. No definite acute osseous abnormality seen. Small areas of scarring are visible at the lung bases. A subcentimeter cyst is noted in the spleen. The liver and spleen are otherwise unremarkable. The adrenal glands and pancreas appear normal. No focal kidney abnormality is evident. No adenopathy, free air or free fluid is evident. The urinary bladder is unremarkable. No GI tract abnormality seen. No additional contributory abnormality. IMPRESSION: No acute abnormality identified. Interval but age-indeterminate loss of height at the superior L4 endplate. Interpreted by: Nii Carmen MD Preliminary Report By: Nii Carmen MD Electronically signed By Nii Carmen MD Dictated Date: 10/04/2023 12:03:17 PM Prelim Date: 10/04/2023 12:06:02 PM Sign Date: 10/04/2023 12:06:02 PM Ordering Provider: LEONARDO [facility] 09-21-2023 Hospital Discharge instructions Patient Education 09/21/2023 10:15:50 Back Pain (Acute or Chronic) Back Pain (Acute or Chronic) Back pain is one of the most common problems. The good news is that most people feel better in 1 to 2 weeks, and most of the rest in 1 to 2 months. Most people can remain active. People who have pain describe it differently not everyone is the same. The pain can be sharp, stabbing, shooting, aching, cramping or burning. Movement, standing, bending, lifting, sitting, or walking may worsen pain. It can be localized to one spot or area, or it can be more generalized. It can spread or radiate upwards, to the front, or go down your arms or legs (sciatica). It can cause muscle spasm. Most of the time, mechanical problems with the muscles or spine cause the pain. Mechanical problems are usually caused by an injury to the muscles or ligaments. While illness can cause back pain, it is usually not caused by a serious illness. Mechanical problems include: Physical activity such as sports, exercise, work, or normal activity Overexertion, lifting, pushing, pulling incorrectly or too aggressively Sudden twisting, bending, or stretching from an accident, or accidental movement Poor posture Stretching or moving wrong, without noticing pain at the time Poor coordination, lack of regular exercise (check with your doctor about this) Spinal disc disease or arthritis Stress Pain can also be related to , or illness like appendicitis, bladder or kidney infections, pelvic infections, and many other things. Acute back pain usually gets better in 1 to 2 weeks. Back pain related to disk disease, arthritis in the spinal joints or spinal stenosis (narrowing of the spinal canal) can become chronic and last for months or years. Unless you had a physical injury (for example, a car accident or fall) X-rays are usually not needed for the initial evaluation of back pain. If pain continues and does not respond to medical treatment, X-rays and other tests may be needed. Home care Try these home care recommendations: When in bed, try to find a position of comfort. A firm mattress is best. Try lying flat on your back with pillows under your knees. You can also try lying on your side with your knees bent up towards your chest and a pillow between your knees. At first, do not try to stretch out the sore spots. If there is a strain, it is not like the good soreness you get after exercising without an injury. In this case, stretching may make it worse. Don't sit for long periods, as in a long car ride or during other travel. This puts more stress on the lower back than standing or walking. During the first 24 to 72 hours after an acute injury or flare up of chronic back pain, apply an ice pack to the painful area for 20 minutes and then remove it for 20 minutes. Do this over a period of 60 to 90 minutes or several times a day. This will reduce swelling and pain. Wrap the ice pack in a thin towel or plastic to protect your skin. You can start with ice, then switch to heat. Heat (hot shower, hot bath, or heating pad) reduces pain and works well for muscle spasms. Heat can be applied to the painful area for 20 minutes then remove it for 20 minutes. Do this over a period of 60 to 90 minutes or several times a day. Do not sleep on a heating pad. It can lead to skin gautam or tissue damage. You can alternate ice and heat therapy. Talk with your doctor about the best treatment for your back pain. Therapeutic massage can help relax the back muscles without stretching them. Be aware of safe lifting methods and do not lift anything without stretching first. Medicines Talk to your doctor before using medicine, especially if you have other medical problems or are taking other medicines. You may use heyx-xcx-npsnuuc medicine as directed on the bottle to control pain, unless another pain medicine was prescribed. If you have chronic conditions like diabetes, liver or kidney disease, stomach ulcers, or gastrointestinal bleeding, or are taking blood thinners, talk to your doctor before taking any medicine. Be careful if you are given a prescription medicines, narcotics, or medicine for muscle spasms. They can cause drowsiness, affect your coordination, reflexes, and judgement. Do not drive or operate heavy machinery. Follow-up care Follow up with your healthcare provider, or as advised. A radiologist will review any X-rays that were taken. Your provide will notify you of any new findings that may affect your care. Call 911 Call 911 if any of the following occur: Trouble breathing Confusion Very drowsy or trouble awakening Fainting or loss of consciousness Rapid or very slow heart rate Loss of bowel or bladder control When to seek medical advice Call your healthcare provider right away if any of these occur: Pain becomes worse or spreads to your legs Weakness or numbness in one or both legs Numbness in the groin or genital area [id number] [employer] [address] [place] [address]. All rights reserved. This information is not intended as a substitute for professional medical care. Always follow your healthcare professional's instructions. Follow Up Care 09/21/2023 09:32:16 With:LIZZETET SALES Address: [address] [facility] [place] [address]- [phone] Business (1) When:1-2 days Comments:Contact your doctor's office to schedule an outpatient MRI of your lumbar spine.Limit activity as tolerated.Continue pain medication as prescribed by your doctor.Use Abilene as prescribed for severe pain. Take Zofran prior to try to prevent GI side effects of the pain medication.Return to the ED if symptoms worsen. [facility] 09-21-2023 Note Discharge Instructions Thank you for allowing [facility] to assist you with your healthcare needs. The following is important discharge information regarding your hospital visit. Diagnosis from Today's Visit Back pain Back pain What to Do Next Instructions from Your Care Team No qualifying data available. Post Acute Orders No qualifying data available. You Need to Schedule the Following Appointments Follow Up with LIZZETTE SALES When Within 1-2 days Why: Contact your doctor's office to schedule an outpatient MRI of your lumbar spine. Limit activity as tolerated. Continue pain medication as prescribed by your doctor. Use Abilene as prescribed for severe pain. Take Zofran prior to try to prevent GI side effects of the pain medication. Return to the ED if symptoms worsen. Where: [address] [place] [address] [place] [address]- [phone] Business (1) Allergies NKA Medications Please ask your primary doctor or pharmacist before taking any other medication not listed, including over the counter drugs, herbal medications, vitamins and or supplements as they may interact with your home medications. What How Much When Why Instructions Last Dose New acetaminophen-hydrocodone (Abilene 325- 5 mg oral tablet) 1 tab(s) by mouth Every 6 hours as needed for As needed for severe pain Back pain Duration: 3 Days Printed Prescription New ondansetron (Zofran 4 mg oral tablet) 1 tab(s) by mouth Every 6 hours as needed for As needed for nausea and vomiting Duration: 3 Days Printed Prescription Unchanged ascorbic acid (Vitamin C) 100 Milligram Chewed Once a day Unchanged calcium carbonate (calcium (as carbonate) 600 mg oral tablet) 1 tab(s) by mouth Once a day Unchanged cholecalciferol (Vitamin D3 400 intl units oral capsule) 1 cap by mouth Every day Unchanged chromium picolinate (chromium picolinate 200 mcg oral tablet) 1 tab(s) by mouth Every day Unchanged cyanocobalamin (Vitamin B12) takes one every other day Unchanged levothyroxine (levothyroxine 88 mcg (0.088 mg) oral tablet) 1 tab(s) by mouth Once a day Hypothyroid 1 tablet by mouth daily except 2 tablets by mouth on Tuesdays and Fridays. Unchanged losartan (losartan 50 mg oral tablet) 1 tab(s) by mouth Once a day Hypertension High blood pressure Unchanged lutein (lutein 20 mg oral capsule) 1 cap by mouth Once a day Unchanged magnesium oxide (Magnesium 250 mg tablet) by mouth Once a day Unchanged meloxicam (Mobic 15 mg oral tablet) 1 tab(s) by mouth Once a day Unchanged zanubrutinib (Brukinsa 80 mg oral capsule) 2 cap by mouth Two (2) times a day Please take this list to your next doctor s visit. Bring all medications you take, including over the counter medications, herbals and other supplements with you to your doctor s visit. Patients and families are reminded to discard old lists and to update any records with all medication providers or retail pharmacies. Education Materials Back Pain (Acute or Chronic) Back pain is one of the most common problems. The good news is that most people feel better in 1 to 2 weeks, and most of the rest in 1 to 2 months. Most people can remain active. People who have pain describe it differently not everyone is the same. The pain can be sharp, stabbing, shooting, aching, cramping or burning. Movement, standing, bending, lifting, sitting, or walking may worsen pain. It can be localized to one spot or area, or it can be more generalized. It can spread or radiate upwards, to the front, or go down your arms or legs (sciatica). It can cause muscle spasm. Most of the time, mechanical problems with the muscles or spine cause the pain. Mechanical problems are usually caused by an injury to the muscles or ligaments. While illness can cause back pain, it is usually not caused by a serious illness. Mechanical problems include: Physical activity such as sports, exercise, work, or normal activity Overexertion, lifting, pushing, pulling incorrectly or too aggressively Sudden twisting, bending, or stretching from an accident, or accidental movement Poor posture Stretching or moving wrong, without noticing pain at the time Poor coordination, lack of regular exercise (check with your doctor about this) Spinal disc disease or arthritis Stress Pain can also be related to , or illness like appendicitis, bladder or kidney infections, pelvic infections, and many other things. Acute back pain usually gets better in 1 to 2 weeks. Back pain related to disk disease, arthritis in the spinal joints or spinal stenosis (narrowing of the spinal canal) can become chronic and last for months or years. Unless you had a physical injury (for example, a car accident or fall) X-rays are usually not needed for the initial evaluation of back pain. If pain continues and does not respond to medical treatment, X-rays and other tests may be needed. Home care Try these home care recommendations: When in bed, try to find a position of comfort. A firm mattress is best. Try lying flat on your back with pillows under your knees. You can also try lying on your side with your knees bent up towards your chest and a pillow between your knees. At first, do not try to stretch out the sore spots. If there is a strain, it is not like the good soreness you get after exercising without an injury. In this case, stretching may make it worse. Don't sit for long periods, as in a long car ride or during other travel. This puts more stress on the lower back than standing or walking. During the first 24 to 72 hours after an acute injury or flare up of chronic back pain, apply an ice pack to the painful area for 20 minutes and then remove it for 20 minutes. Do this over a period of 60 to 90 minutes or several times a day. This will reduce swelling and pain. Wrap the ice pack in a thin towel or plastic to protect your skin. You can start with ice, then switch to heat. Heat (hot shower, hot bath, or heating pad) reduces pain and works well for muscle spasms. Heat can be applied to the painful area for 20 minutes then remove it for 20 minutes. Do this over a period of 60 to 90 minutes or several times a day. Do not sleep on a heating pad. It can lead to skin gautam or tissue damage. You can alternate ice and heat therapy. Talk with your doctor about the best treatment for your back pain. Therapeutic massage can help relax the back muscles without stretching them. Be aware of safe lifting methods and do not lift anything without stretching first. Medicines Talk to your doctor before using medicine, especially if you have other medical problems or are taking other medicines. You may use dysm-oxr-ncbiubd medicine as directed on the bottle to control pain, unless another pain medicine was prescribed. If you have chronic conditions like diabetes, liver or kidney disease, stomach ulcers, or gastrointestinal bleeding, or are taking blood thinners, talk to your doctor before taking any medicine. Be careful if you are given a prescription medicines, narcotics, or medicine for muscle spasms. They can cause drowsiness, affect your coordination, reflexes, and judgement. Do not drive or operate heavy machinery. Follow-up care Follow up with your healthcare provider, or as advised. A radiologist will review any X-rays that were taken. Your provide will notify you of any new findings that may affect your care. Call 911 Call 911 if any of the following occur: Trouble breathing Confusion Very drowsy or trouble awakening Fainting or loss of consciousness Rapid or very slow heart rate Loss of bowel or bladder control When to seek medical advice Call your healthcare provider right away if any of these occur: Pain becomes worse or spreads to your legs Weakness or numbness in one or both legs Numbness in the groin or genital area 5404-5893 [employer] [place] [address]. All rights reserved. This information is not intended as a substitute for professional medical care. Always follow your healthcare professional's instructions. Additional Information VACCINATE! IT SAVES LIVES! Members of the community who have not yet received the COVID-19 vaccine and would like to receive it can visit one of [facility] vaccine clinics. There are many vaccine clinic locations within the [facility]. For locations and available times, please visit [email or web address].[place].go [email or web address] It is important to note that some COVID mobile vaccine clinics are held outdoors and may be canceled in rainy or stormy conditions. To learn more about pediatric vaccinations (ages 5-11), we invite you to visit the [facility] webpage. https://[email or web address]/pag [email or web address]-Fjiopsfayku-[email or web address] ge-Txpkm-Foozulkbq.html To learn more about the COVID-19 vaccine, we invite you to visit the CDC website for a list of frequently asked questions. https://www.cdc.gov/coronavirus/20 19-ncov/vaccines/faq.html [facility] [employer] Patient Portal Access Instructions: Stay connected with your healthcare team and access your personal medical information anytime with the [facility] Patient Portal. If you would like a full copy of your medical records please contact the [facility] Medical Records Department Wednesday through Wednesday between 8a.m. and 4:30p.m. Please follow the directions below to access the portal: 1.Access the email account you provided upon registration to the [facility].2.Look for an invitation email from [facility].3.Open the email and access the invitation link: Accept Invitation to [facility] [employer]4.Fill in the required shah to create your account. Sign into www.[email or web address] with your username and password that you created in the above steps to stay up to date. You can then view a summary of results, a summary of your visits, and the ability to download your summaries to your computer or send the information securely to a physician. Remember that your healthcare information is confidential, so carefully consider who you will allow to register on the [facility] [employer] [facility] Patient Portal for access to your information. You can also access the [facility] Patient Portal on the [employer]. Simply click on Health Records under Health Data and then click on the [employer] logo. HOW TO SAFELY DISPOSE OF PRESCRIPTION MEDICATIONS Please use one of the following methods to safely dispose of your unused medications. 1.Use a drug disposal kit: the drug disposal pouch allows you to safely discard your old and unused drugs. Ask your nurse to give you one when you are discharged.2.Visit a local take-back location: Many local pharmacies and police departments have programs that collect old and unwanted prescription drugs. Call your local pharmacy or go to http://LifeDox.Comprimato/5R8Pc5k to find one close to you.3.Make use of household items: Use cat litter or old coffee grounds to dispose medications if other options are not available. Mix your drugs with these household products, seal them in an airtight container and throw it into the garbage. Call [facility]: [phone] to be sure your drugs can be disposed of in this way. Some medicines may require a different approach.4.Never flush your medications down the toilet. IF YOU HAVE BEEN PRESCRIBED AN OPIOIDS FOR PAIN If you have been prescribed an opioid (such as hydrocodone, oxycodone or morphine), it is critical to understand the possible side effects and risks of opioid pain medications. Even when taken as directed, opioids can have several side effects including: Tolerance, meaning you might need to take more of a medication for the same pain relief. Nausea, vomiting and/or constipation. Sleepiness, dizziness, dry mouth, confusion, depression or itching. Physical dependence, meaning you have withdrawal symptoms when a medication is stopped ? this can develop within a few days. KNOW YOUR RESPONSIBILITIES It is important to know exactly how much and how often to take the opioid pain medications you are prescribed. Never take opioids in higher amounts or more often than prescribed. Do not combine opioids with alcohol or other drugs that cause drowsiness, such as benzodiazepines, also known as benzos, including diazepam and alprazolam, muscle relaxants or sleep aids. Never sell or share prescription opioids. This is illegal. Store opioids in a secure place and out of reach of others (including children, family, friends and visitors). The last page(s) of this document has been signed and retained as a CHART COPY Signatures Patient Education Materials Back Pain (Acute or Chronic) Medication Leaflets My discharge plan and instructions have been reviewed and explained to me and I,BALA BOB Monreal understand my current condition and have read and understand these discharge instructions. I have received a written copy of the plan/instructions. If I have questions, I am aware that I should contact my doctor. 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 MICRO - Microbiology PROCEDURE: Urine Culture [*1] SOURCE: Urine, Clean Catch BODY SITE: COLLECTED DATE/TIME: 09/13/2023 14:36 EDT RECEIVED DATE/TIME: 09/13/2023 20:01 EDT START DATE/TIME: 09/13/2023 20:02 EDT FREE TEXT SOURCE: FINAL REPORTS Final Report [] Verified Date/Time/Personnel: 09/15/2023 07:50 EDT <10,000 cfu/ml. No Significant growth. Sensitivity not indicated. PRELIMINARY REPORTS Preliminary Report [] Verified Date/Time/Personnel: 09/14/2023 09:45 EDT Culture results pending. Performing Locations *1: This test was performed at: [facility], [address] [place] [address], [id number] , [facility] ([place]) 05-08-2023 Hospital Discharge instructions Patient Education 05/08/2023 13:15:20 Chest Pain, Noncardiac Noncardiac Chest Pain Based on your visit today, the healthcare provider doesn t know what is causing your chest pain. In most cases, people who come to the emergency department with chest pain don t have a problem with their heart. Instead, the pain is caused by other conditions. It's important for the healthcare team to be sure you are not having a life threatening cause for chest pain such as a heart attack, blood clot in the lungs, collapsed lung, ruptured esophagus, or tearing of the aorta. Once these major causes have been ruled out, you may have further evaluation for non-heart causes of chest pain. These may be problems with the lungs, muscles, bones, digestive tract, nerves, or mental health. Lung problems Inflammation around the lungs (pleurisy) Collapsed lung (pneumothorax) Fluid around the lungs (pleural effusion) Lung cancer (a rare cause of chest pain) Muscle or bone problems Inflamed cartilage between the ribs (costochondritis) Fibromyalgia Rheumatoid arthritis Chest wall strain Digestive system problems Reflux Stomach ulcer Spasms of the esophagus Gall stones Gallbladder inflammation Mental health conditions Panic or anxiety attacks Emotional distress Your condition doesn t seem serious and your pain doesn t appear to be coming from your heart. But sometimes the signs of a serious problem take more time to appear. Watch for the warning signs listed below. Home care Follow these guidelines when caring for yourself at home: Rest today and avoid strenuous activity. Take any prescribed medicine as directed. Follow-up care Follow up with your healthcare provider, or as advised, if you don t start to feel better within 24 hours. When to seek medical advice Call your healthcare provider right away if any of these occur: A change in the type of pain. Call if it feels different, becomes more serious, lasts longer, or begins to spread into your shoulder, arm, neck, jaw, or back. Shortness of breath You feel more pain when you breathe Cough with dark-colored mucus or blood Weakness, dizziness, or fainting Fever of 100.4 F (38 C) or higher, or as directed by your healthcare provider Swelling, pain, or redness in one leg 0523-3704 [employer]. [address] [place] [address]. All rights reserved. This information is not intended as a substitute for professional medical care. Always follow your healthcare professional's instructions. Follow Up Care 05/08/2023 09:01:37 With:LIZZETTE SALES DO Address: [address] [place] [phone] When:2-4 days [facility] 05-08-2023 Note Discharge Instructions Thank you for allowing [facility] to assist you with your healthcare needs. The following is important discharge information regarding your hospital visit. Diagnosis from Today's Visit Atypical chest pain Chest pain What to Do Next Instructions from Your Care Team No qualifying data available. Post Acute Orders No qualifying data available. You Need to Schedule the Following Appointments Follow Up with LIZZETTE SALES DO When Within 2-4 days Where: [address] [place] [phone] [phone] Allergies NKA Medications Please ask your primary doctor or pharmacist before taking any other medication not listed, including over the counter drugs, herbal medications, vitamins and or supplements as they may interact with your home medications. What How Much When Why Instructions Last Dose New pantoprazole (Protonix 40 mg oral enteric coated tablet) 2 tab(s) by mouth Once a day Printed Prescription Unchanged ascorbic acid (Vitamin C) 100 Milligram Chewed Once a day Unchanged calcium carbonate (calcium (as carbonate) 600 mg oral tablet) 1 tab(s) by mouth Once a day Unchanged cephalexin (cephalexin 500 mg oral tablet) 1 tab(s) by mouth Two (2) times a day Duration: 10 Days Unchanged cholecalciferol (Vitamin D3 400 intl units oral capsule) 1 cap by mouth Every day Unchanged chromium picolinate (chromium picolinate 200 mcg oral tablet) 1 tab(s) by mouth Every day Unchanged cyanocobalamin (Vitamin B12) takes one every other day Unchanged levothyroxine (levothyroxine 88 mcg (0.088 mg) oral tablet) 1 tab(s) by mouth Once a day Hypothyroid Unchanged losartan (losartan 50 mg oral tablet) 1 tab(s) by mouth Once a day Hypertension High blood pressure Unchanged lutein (lutein 20 mg oral capsule) 1 cap by mouth Once a day Unchanged magnesium oxide (Magnesium 250 mg tablet) by mouth Once a day Please take this list to your next doctor s visit. Bring all medications you take, including over the counter medications, herbals and other supplements with you to your doctor s visit. Patients and families are reminded to discard old lists and to update any records with all medication providers or retail pharmacies. Medication Leaflets pantoprazole (oral/injection) (rivera TOE pra zole) Protonix What is the most important information I should know about pantoprazole? Pantoprazole can cause kidney problems. Tell your doctor if you are urinating less than usual, or if you have blood in your urine. Diarrhea may be a sign of a new infection. Call your doctor if you have diarrhea that is watery or has blood in it. Pantoprazole may cause new or worsening symptoms of lupus. Tell your doctor if you have joint pain and a skin rash on your cheeks or arms that worsens in sunlight. You may be more likely to have a broken bone while taking this medicine terminal press operator or more than once per day. What is pantoprazole? Pantoprazole is used to treat erosive esophagitis (damage to the esophagus from stomach acid caused by gastroesophageal reflux disease, or GERD) in adults and children who are at least 5 years old. Pantoprazole is usually given for up to 8 weeks at a time while your esophagus heals. Pantoprazole is also used to treat Lavonne-Man syndrome and other conditions involving excess stomach acid. Pantoprazole is not for immediate relief of heartburn. Pantoprazole may also be used for purposes not listed in this medication guide. What should I discuss with my healthcare provider before using pantoprazole? Heartburn can mimic early symptoms of a heart attack. Get emergency medical help if you have chest pain that spreads to your jaw or shoulder and you feel anxious or light-headed. You should not use this medicine if: you also take medicine that contains rilpivirine (Edurant, Complera, Juluca, Odefsey); if you had breathing problems, kidney problems, or a severe allergic reaction after taking pantoprazole in the past; you are allergic to pantoprazole or similar medicines (lansoprazole, omeprazole, Nexium, Prevacid, Prilosec, and others). Tell your doctor if you have ever had: low levels of magnesium in your blood; lupus; or osteoporosis or low bone mineral density. You may be more likely to have a broken bone in your hip, wrist, or spine while taking a proton pump inhibitor long-term or more than once per day. Talk with your doctor about ways to keep your bones healthy. Tell your doctor if you are or . Pantoprazole is not approved for use by anyone younger than 5 years old. How should I use pantoprazole? Follow all directions on your prescription label and read all medication guides or instruction sheets. Use the medicine exactly as directed. Use the lowest dose for the shortest amount of time needed to treat your condition. Pantoprazole is taken by mouth (oral) or given as an infusion into a vein (injection). A healthcare provider may teach you how to properly use pantoprazole injection by yourself. Pantoprazole tablets are taken by mouth, with or without food. Pantoprazole oral granules should be taken 30 minutes before a meal. Do not crush, chew, or break the tablet. Swallow it whole. The oral granules should be mixed with applesauce or apple juice and given either by mouth or through a nasogastric (NG) tube. Read and carefully follow any Instructions for Use provided with your medicine. Ask your doctor or pharmacist if you do not understand these instructions. Use this medicine for the full prescribed length of time, even if your symptoms quickly improve. Call your doctor if your symptoms do not improve or if they get worse while you are using this medicine. This medicine can affect the results of certain medical tests. Tell any doctor who treats you that you are using pantoprazole. Pantoprazole may also affect a drug-screening urine test and you may have false results. Tell the laboratory staff that you use this medicine. Store this medicine at room temperature away from moisture, heat, and light. What happens if I miss a dose? Use the medicine as soon as you can, but skip the missed dose if it is almost time for your next dose. Do not use two doses at one time. What happens if I overdose? Seek emergency medical attention or call the Poison Help line at . What should I avoid while using pantoprazole? This medicine can cause diarrhea, which may be a sign of a new infection. If you have diarrhea that is watery or bloody, call your doctor. Do not use anti-diarrhea medicine unless your doctor tells you to. What are the possible side effects of pantoprazole? Get emergency medical help if you have signs of an allergic reaction: hives; difficulty breathing; swelling of your face, lips, tongue, or throat. Call your doctor at once if you have: severe stomach pain, diarrhea that is watery or bloody; sudden pain or trouble moving your hip, wrist, or back; bruising or swelling where intravenous pantoprazole was injected; kidney problems-- fever, rash, nausea, loss of appetite, joint pain, urinating less than usual, blood in your urine, weight gain; low magnesium--dizziness, fast or irregular heart rate, tremors (shaking) or jerking muscle movements, feeling jittery, muscle cramps, muscle spasms in your hands and feet, cough or choking feeling; or new or worsening symptoms of lupus--joint pain, and a skin rash on your cheeks or arms that worsens in sunlight. Taking pantoprazole long-term may cause you to develop stomach growths called fundic gland polyps. Talk with your doctor about this risk. If you use pantoprazole for longer than 3 years, you could develop a vitamin B-12 deficiency. Talk to your doctor about how to manage this condition if you develop it. Common side effects may include: headache, dizziness; stomach pain, gas, nausea, vomiting, diarrhea; joint pain; or fever, rash, or cold symptoms (most common in children). This is not a complete list of side effects and others may occur. Call your doctor for medical advice about side effects. You may report side effects to FDA at 1-375-LAP-9484. What other drugs will affect pantoprazole? Tell your doctor about all your other medicines, especially: digoxin; methotrexate; or a diuretic or 'water pill.' This list is not complete. Other drugs may affect pantoprazole, including prescription and zhbx-saz-dtyathj medicines, vitamins, and herbal products. Not all possible drug interactions are listed here. Where can I get more information? Your pharmacist can provide more information about pantoprazole. Remember, keep this and all other medicines out of the reach of children, never share your medicines with others, and use this medication only for the indication prescribed. Every effort has been made to ensure that the information provided by [employer]). ('[employer]') is accurate, up-to-date, and complete, but no guarantee is made to that effect. Drug information contained herein may be time sensitive. [employer] information has been compiled for use by healthcare practitioners and consumers in the [place] and therefore [employer] does not warrant that uses outside of the [place] are appropriate, unless specifically indicated otherwise. [employer] drug information does not endorse drugs, diagnose patients or recommend therapy. [employer] drug information is an informational resource designed to assist licensed healthcare practitioners in caring for their patients and/or to serve consumers viewing this service as a supplement to, and not a substitute for, the expertise, skill, knowledge and judgment of healthcare practitioners. The absence of a warning for a given drug or drug combination in no way should be construed to indicate that the drug or drug combination is safe, effective or appropriate for any given patient. [employer] does not assume any responsibility for any aspect of healthcare administered with the aid of information [employer] provides. The information contained herein is not intended to cover all possible uses, directions, precautions, warnings, drug interactions, allergic reactions, or adverse effects. If you have questions about the drugs you are taking, check with your doctor, nurse or pharmacist. Copyright 5422-5968 [facility] Med ePad. Version: .. Revision Date: 06/10/2020. Education Materials Noncardiac Chest Pain Based on your visit today, the healthcare provider doesn t know what is causing your chest pain. In most cases, people who come to the emergency department with chest pain don t have a problem with their heart. Instead, the pain is caused by other conditions. It's important for the healthcare team to be sure you are not having a life threatening cause for chest pain such as a heart attack, blood clot in the lungs, collapsed lung, ruptured esophagus, or tearing of the aorta. Once these major causes have been ruled out, you may have further evaluation for non-heart causes of chest pain. These may be problems with the lungs, muscles, bones, digestive tract, nerves, or mental health. Lung problems Inflammation around the lungs (pleurisy) Collapsed lung (pneumothorax) Fluid around the lungs (pleural effusion) Lung cancer (a rare cause of chest pain) Muscle or bone problems Inflamed cartilage between the ribs (costochondritis) Fibromyalgia Rheumatoid arthritis Chest wall strain Digestive system problems Reflux Stomach ulcer Spasms of the esophagus Gall stones Gallbladder inflammation Mental health conditions Panic or anxiety attacks Emotional distress Your condition doesn t seem serious and your pain doesn t appear to be coming from your heart. But sometimes the signs of a serious problem take more time to appear. Watch for the warning signs listed below. Home care Follow these guidelines when caring for yourself at home: Rest today and avoid strenuous activity. Take any prescribed medicine as directed. Follow-up care Follow up with your healthcare provider, or as advised, if you don t start to feel better within 24 hours. When to seek medical advice Call your healthcare provider right away if any of these occur: A change in the type of pain. Call if it feels different, becomes more serious, lasts longer, or begins to spread into your shoulder, arm, neck, jaw, or back. Shortness of breath You feel more pain when you breathe Cough with dark-colored mucus or blood Weakness, dizziness, or fainting Fever of 100.4 F (38 C) or higher, or as directed by your healthcare provider Swelling, pain, or redness in one leg 0217-8199 [employer]. [address] [place] [address]. All rights reserved. This information is not intended as a substitute for professional medical care. Always follow your healthcare professional's instructions. Additional Information VACCINATE! IT SAVES LIVES! Members of the community who have not yet received the COVID-19 vaccine and would like to receive it can visit one of [facility] vaccine clinics. There are many vaccine clinic locations within the [facility]. For locations and available times, please visit [email or web address].[place].go [email or web address] It is important to note that some COVID mobile vaccine clinics are held outdoors and may be canceled in rainy or stormy conditions. To learn more about pediatric vaccinations (ages 5-11), we invite you to visit the [facility] webpage. https://www.[facility].org/pag es/0845-Zltyn-Wpfmqbstlqz-Frequent kq-Kjdhg-Vnluadlji.html To learn more about the COVID-19 vaccine, we invite you to visit the CDC website for a list of frequently asked questions. https://www.cdc.gov/coronavirus/ 19-ncov/vaccines/faq.html [employer] Patient Portal Access Instructions: Stay connected with your healthcare team and access your personal medical information anytime with the [employer] Patient Portal. If you would like a full copy of your medical records please contact the [facility] Medical Records Department Wednesday through Wednesday between 8a.m. and 4:30p.m. Please follow the directions below to access the portal: 1.Access the email account you provided upon registration to the hospital.2.Look for an invitation email from [facility].3.Open the email and access the invitation link: Accept Invitation to [facility].Fill in the required shah to create your account. Sign into [email or web address] with your username and password that you created in the above steps to stay up to date. You can then view a summary of results, a summary of your visits, and the ability to download your summaries to your computer or send the information securely to a physician. Remember that your healthcare information is confidential, so carefully consider who you will allow to register on the [facility] [employer] Patient Portal for access to your information. You can also access the [facility] Patient Portal on the [facility] denis. Simply click on Health Records under Health Data and then click on the [facility] logo. HOW TO SAFELY DISPOSE OF PRESCRIPTION MEDICATIONS Please use one of the following methods to safely dispose of your unused medications. 1.Use a drug disposal kit: the drug disposal pouch allows you to safely discard your old and unused drugs. Ask your nurse to give you one when you are discharged.2.Visit a local take-back location: Many local pharmacies and police departments have programs that collect old and unwanted prescription drugs. Call your local pharmacy or go to http://LifeDox.Comprimato/0M4Ef4a to find one close to you.3.Make use of household items: Use cat litter or old coffee grounds to dispose medications if other options are not available. Mix your drugs with these household products, seal them in an airtight container and throw it into the garbage. Call [facility]: [phone] to be sure your drugs can be disposed of in this way. Some medicines may require a different approach.4.Never flush your medications down the toilet. IF YOU HAVE BEEN PRESCRIBED AN OPIOIDS FOR PAIN If you have been prescribed an opioid (such as hydrocodone, oxycodone or morphine), it is critical to understand the possible side effects and risks of opioid pain medications. Even when taken as directed, opioids can have several side effects including: Tolerance, meaning you might need to take more of a medication for the same pain relief. Nausea, vomiting and/or constipation. Sleepiness, dizziness, dry mouth, confusion, depression or itching. Physical dependence, meaning you have withdrawal symptoms when a medication is stopped ? this can develop within a few days. KNOW YOUR RESPONSIBILITIES It is important to know exactly how much and how often to take the opioid pain medications you are prescribed. Never take opioids in higher amounts or more often than prescribed. Do not combine opioids with alcohol or other drugs that cause drowsiness, such as benzodiazepines, also known as benzos, including diazepam and alprazolam, muscle relaxants or sleep aids. Never sell or share prescription opioids. This is illegal. Store opioids in a secure place and out of reach of others (including children, family, friends and visitors). The last page(s) of this document has been signed and retained as a CHART COPY Signatures Patient Education Materials Chest Pain, Noncardiac Medication Leaflets pantoprazole (oral/injection) My discharge plan and instructions have been reviewed and explained to me and IBALA CAROLYN M understand my current condition and have read and understand these discharge instructions. I have received a written copy of the plan/instructions. If I have questions, I am aware that I should contact my doctor. Patient/Wood Bucker Signature: Date/Time: Relationship to Patient: ___ Witness Name/Signature: Date/Time: [facility] 05-08-2023 Note ORIGINAL EXAMINATION: CTA OF THE CHEST 05/08/2023 12:39 pm TECHNIQUE: CTA of the chest was performed after the administration of intravenous contrast. Multiplanar reformatted images are provided for review. MIP images are provided for review. Automated exposure control, iterative reconstruction, and/or weight based adjustment of the mA/kV was utilized to reduce the radiation dose to as low as reasonably achievable. COMPARISON: None. HISTORY: ORDERING SYSTEM PROVIDED HISTORY: Reason for Exam: elevated d dimer FINDINGS: Zagp-vy-czmgufdg degenerative changes are noted in the spine. No acute osseous abnormality identified. Small scattered areas of pulmonary and pleural scarring are visible. Mild mosaic attenuation is evident and this may indicate small airways or microvascular disease. There is no confluent infiltrate identified, and there is no pleural fluid seen. Prominent mediastinal adenopathy is evident, paratracheal, precarinal, prevascular, subcarinal. Mild hilar adenopathy is also evident. Additionally, there is prominent bilateral axillary adenopathy. No pulmonary artery defect is identified on this exam. No additional contributory abnormality seen. IMPRESSION: 1. No evidence for pulmonary embolism on this exam. 2. Scattered ground-glass densities/mosaic attenuation most compatible with mild small airway or microvascular disease. 3. Prominent adenopathy in multiple locations. Lymphoproliferative disorder is the leading consideration. Interpreted by: Nii Carmen MD Preliminary Report By: Nii Carmen MD Electronically signed By Nii Carmen MD Dictated Date: 05/08/2023 12:41:42 PM Prelim Date: 05/08/2023 12:45:07 PM Sign Date: 05/08/2023 12:45:07 PM Ordering Provider: CHANTAL ZAPIEN [facility] 05-08-2023 Note ORIGINAL EXAMINATION: ONE XRAY VIEW OF THE CHEST 05/08/2023 11:06 am COMPARISON: March 16, 2019 HISTORY: ORDERING SYSTEM PROVIDED HISTORY: Reason for Exam: chest pain FINDINGS: The heart is slightly prominent without vascular congestion. There is some background interstitial prominence present. No focal infiltrate or pleural fluid seen. There are degenerative changes in the spine and at the shoulders. IMPRESSION: No acute finding. Interpreted by: Nii Carmen MD Preliminary Report By: Nii Carmen MD Electronically signed By Nii Carmen MD Dictated Date: 05/08/2023 11:10:42 AM Prelim Date: 05/08/2023 11:11:05 AM Sign Date: 05/08/2023 11:11:05 AM Ordering Provider: CHANTAL ZAPIEN [facility] 05-08-2023 Note Sinus rhythm Electronic Signature: CHANTAL ZAPIEN MD 05/08/2023 09:34:57 [facility] 05-06-2023 Note . MICRO - Microbiology PROCEDURE: Urine Culture [*1] SOURCE: Urine, Clean Catch BODY SITE: COLLECTED DATE/TIME: 05/05/2023 11:21 EST RECEIVED DATE/TIME: 05/05/2023 19:28 EST START DATE/TIME: 05/05/2023 19:28 EST FREE TEXT SOURCE: FINAL REPORTS Final Report [] Verified Date/Time/Personnel: 05/06/2023 14:03 EST 50,000 - 100,000 cfu/ml Mixed growth consistent with normal urogenital giles. Performing Locations *1: This test was performed at: [facility], [address] [place] [address], [id number] , [facility] ([place]) 08-05-2022 SARS-CoV-2 (COVID-19) RNA BREANNA+probe Ql (Nph) Positive *ABN* (08/05/22 5:58 PM) AO Auto Urine SS 07-17-2022 Note ORIGINAL EXAMINATION: SOFT TISSUE ULTRASOUND 07/17/2022 12:08 pm COMPARISON: None. HISTORY: ORDERING SYSTEM PROVIDED HISTORY: Reason for Exam: Mass above right clavicle FINDINGS: Numerous sonographic images of the region of concern involving the right supraclavicular region were obtained. A few images of the left supraclavicular region were obtained for comparison. There are numerous abnormal appearing lymph nodes within the supraclavicular regions bilaterally, more so on the right, which explains the patient's palpable abnormality. Some of the lymph nodes demonstrate abnormal cortical thickening and/or loss of the normal fatty hilum. The largest lymph node on the right measures up to 2.6 cm in greatest dimension. IMPRESSION: Numerous abnormal appearing lymph nodes within the supraclavicular regions bilaterally, more so on the right, and explains the patient's symptoms. These are concerning for a malignant process such as a lymphoproliferative disorder, as the patient's history does not elicit a recent illness/reactive etiology. Further evaluation with a CT soft tissue neck with contrast is recommended. Interpreted by: Radha Richardson MD Preliminary Report By: Radha Richardson MD Electronically signed By Radha Richardson MD Dictated Date: 07/17/2022 6:18:04 PM Prelim Date: 07/17/2022 6:24:30 PM Sign Date: 07/17/2022 6:24:30 PM Ordering Provider: LIZZETTE LYNCHLAY [facility] 07-17-2022 Note ORIGINAL EXAMINATION: SOFT TISSUE ULTRASOUND 07/17/2022 12:08 pm COMPARISON: None. HISTORY: ORDERING SYSTEM PROVIDED HISTORY: Reason for Exam: Mass above right clavicle FINDINGS: Numerous sonographic images of the region of concern involving the right supraclavicular region were obtained. A few images of the left supraclavicular region were obtained for comparison. There are numerous abnormal appearing lymph nodes within the supraclavicular regions bilaterally, more so on the right, which explains the patient's palpable abnormality. Some of the lymph nodes demonstrate abnormal cortical thickening and/or loss of the normal fatty hilum. The largest lymph node on the right measures up to 2.6 cm in greatest dimension. IMPRESSION: Numerous abnormal appearing lymph nodes within the supraclavicular regions bilaterally, more so on the right, and explains the patient's symptoms. These are concerning for a malignant process such as a lymphoproliferative disorder, as the patient's history does not elicit a recent illness/reactive etiology. Further evaluation with a CT soft tissue neck with contrast is recommended. Interpreted by: Radha Richardson MD Preliminary Report By: Radha Richardson MD Electronically signed By Radha Richardson MD Dictated Date: 07/17/2022 6:18:04 PM Prelim Date: 07/17/2022 6:24:30 PM Sign Date: 07/17/2022 6:24:30 PM Ordering Provider: LIZZETTE LYNCHLAY [facility] Evaluation + Plan note Future Appointments Appointment Date:05/12/2021 10:00:00 AM Scheduled Provider: Location:[facility] Appointment Type:BD Bone Density DEXA Axial Skeleton Appointment Date:10/29/2021 08:00:00 AM Scheduled Provider:LIZZETTE SALES DO Location:[facility] Appointment Type:PC OV Future Scheduled TestsBD Bone Density DEXA Axial Skeleton 05/12/21 [facility] Evaluation + Plan note Future Appointments Appointment Date:10/29/2021 08:00:00 AM Scheduled Provider:LIZZETTE SALES DO Location:[facility] Appointment Type:PC OV [facility] Evaluation + Plan note Future Appointments Appointment Date:10/29/2021 08:00:00 AM Scheduled Provider:LIZZETTE SALES DO Location:[facility] Appointment Type:PC OV Future Scheduled TestsCOVID-19 Only (AO) 06/02/21 [facility] Evaluation + Plan note Future Appointments Appointment Date:05/06/2022 08:00:00 AM Scheduled Provider:LIZZETTE SALES DO Location:[facility] Appointment Type: Wellness Medicare [facility] Evaluation + Plan note Future Appointments Appointment Date:03/10/2022 01:30:00 PM Scheduled Provider:LIZZETTE SALES DO Location:[facility] Appointment Type:PC OV Follow Up Appointment Date:05/06/2022 08:00:00 AM Scheduled Provider:LIZZETTE SALES DO Location:[facility] Appointment Type:PC Wellness Medicare [facility] Evaluation + Plan note Future Appointments Appointment Date:09/02/2022 09:00:00 AM Scheduled Provider:LIZZETTE SALES DO Location:[facility] Appointment Type:PC OV Follow Up [facility] Evaluation + Plan note Future Appointments Appointment Date:08/28/2022 09:00:00 AM Scheduled Provider:LIZZETTE SALES DO Location:[facility] Appointment Type:PC OV Follow Up Diagnostic Tests PendingVitamin B12 Level 07/07/22 Future Scheduled TestsUS Soft Tissue Mass 07/07/22 [facility] Evaluation + Plan note Future Appointments Appointment Date:08/28/2022 09:00:00 AM Scheduled Provider:LIZZETTE SALES DO Location:[facility] Appointment Type:PC OV Follow Up [facility] Evaluation + Plan note Future Appointments Appointment Date:10/23/2022 09:30:00 AM Scheduled Provider:LIZZETTE SALES DO Location:[facility] Appointment Type:PC OV [facility] Evaluation + Plan note Future Appointments Appointment Date:05/11/2023 10:30:00 AM Scheduled Provider:LIZZETTE SALES DO Location:[facility] Appointment Type:PC Wellness Medicare [facility] Evaluation + Plan note Future Appointments Appointment Date:08/03/2023 11:00:00 AM Scheduled Provider:LIZZETTE SALES DO Location:[facility] Appointment Type:PC OV Future Scheduled TestsBD Bone Density DEXA Axial Skeleton 05/11/23 [facility] Evaluation + Plan note Future Appointments Appointment Date:12/02/2023 11:00:00 AM Scheduled Provider:LIZZETTE SALES DO Location:[facility] Appointment Type:PC OV Future Scheduled TestsThyroid Stimulating Hormone 08/03/23BD Bone Density DEXA Axial Skeleton 05/11/23 [facility] Evaluation + Plan note Future Appointments Appointment Date:12/14/2023 11:00:00 AM Scheduled Provider:LIZZETTE SALES DO Location:[facility] Appointment Type:PC OV Future Scheduled TestsThyroid Stimulating Hormone 08/03/23BD Bone Density DEXA Axial Skeleton 05/11/23 [facility] Evaluation + Plan note Future Appointments Appointment Date:09/22/2023 08:00:00 AM Scheduled Provider:LIZZETTE SALES DO Location:[facility] Appointment Type:PC OV Appointment Date:09/24/2023 09:30:00 AM Scheduled Provider: Location:[facility] Appointment Type:CT Abdomen and Pelvis w/o Contrast Appointment Date:12/14/2023 11:00:00 AM Scheduled Provider:LIZZETTE SALES DO Location:[facility] Appointment Type:PC OV Future Scheduled TestsThyroid Stimulating Hormone 08/03/23BD Bone Density DEXA Axial Skeleton 05/11/23CT Abdomen and Pelvis w/o contrast 09/24/23 [facility] Evaluation + Plan note Future Appointments Appointment Date:11/03/2023 09:00:00 AM Scheduled Provider:LIZZETTE SALES DO Location:[facility] Appointment Type:PC OV Appointment Date:12/14/2023 11:00:00 AM Scheduled Provider:LIZZETTE SALES DO Location:[facility] Appointment Type:PC OV Future Scheduled TestsBasic Metabolic Panel 09/22/23Thyroid Stimulating Hormone 08/03/23BD Bone Density DEXA Axial Skeleton 05/11/23MRI Spine Lumbar w/ + w/o Contrast 09/22/23 [facility] Evaluation + Plan note Future Appointments Appointment Date:10/05/2023 12:30:00 PM Scheduled Provider:LIZZETTE SALES DO Location:[facility] Appointment Type:PC OV ED Follow Up Appointment Date:11/03/2023 09:00:00 AM Scheduled Provider:LIZZETTE SALES DO Location:[facility] Appointment Type:PC OV Appointment Date:12/14/2023 11:00:00 AM Scheduled Provider:LIZZETTE SALES DO Location:[facility] Appointment Type:PC OV Future Scheduled TestsBD Bone Density DEXA Axial Skeleton 10/01/23MRI Spine Lumbar w/ + w/o Contrast 09/22/23 [facility] Evaluation + Plan note Future Appointments Appointment Date:12/14/2023 11:00:00 AM Scheduled Provider:LIZZETTE SALES DO Location:[facility] Appointment Type:PC OV Future Scheduled TestsBD Bone Density DEXA Axial Skeleton 10/01/23CT Abdomen and Pelvis w/ contrast 11/03/23MRI Spine Lumbar w/ + w/o Contrast 09/22/23 [facility] Evaluation + Plan note Future Appointments Appointment Date:12/14/2023 11:00:00 AM Scheduled Provider:LIZZETTE SALES DO Location:[facility] Appointment Type:PC OV Future Scheduled TestsBD Bone Density DEXA Axial Skeleton 10/01/23MRI Spine Lumbar w/ + w/o Contrast 09/22/23 [facility] Evaluation + Plan note Future Appointments Appointment Date:02/16/2024 09:30:00 AM Scheduled Provider:LIZZETTE SALES DO Location:[facility] Appointment Type:PC OV Future Scheduled TestsBD Bone Density DEXA Axial Skeleton 10/01/23MRI Spine Lumbar w/ + w/o Contrast 09/22/23 [facility] Hospital course Narrative No data available for this section [facility] Hospital Discharge instructions No data available for this section [facility] Progress note No data available for this section [facility] Instructions Instruction Description Start Date CompletedPlease follow-up tx th Primary Care Physician or Drivematic Machine Operator for treatment or adjustment of medication regarding elevated blood pressure. Advance Directives There may be information available, but it has not been provided by the sender. No Advanced Directives Records FoundNo Advanced Directives Records Found Assessments There may be information available, but it has not been provided by the sender. Review of System There may be information available, but it has not been provided by the sender. Family History There may be information available, but it has not been provided by the sender. No data available for this section No data available for this section No data available for this section No data available for this section No data available for this section No data available for this section No data available for this section No data available for this section No data available for this section No data available for this section No data available for this section No Family History Records Found No data available for this section No Family History Records Found Summary Purpose Additional Source Comments Care Team (unrecognized sect ion and content) Personnel Name: LIZZETTE SALES DO Address: [address] [place] [address] [place] [address]- [place] Name: Santiago Carballo Clerk Joan PT Care Team Personnel Name: IVELISSE LISA MD Member Role: Pain Management Address: Address: [address] [place] [address]- Name: Santiago Carballo Clerk Joan PT Position: P3 Scheduling - Yarn Spooler Advanced Member Role: Other Name: SERAFIN AHUMADA MD Member Role: Sander [employer] Address: Address: [facility] [address] [place] [address]- Name: ROZINA JEFFERSON MD Member Role: Oncologist Address: Address: [address] [place] [address]- Name: OLU GEORGE Member Role: Dentist Name: LIZZETTE SALES DO Position: P4 Physician - Primary Care Member Role: Primary Care Physician Address: Address: [address] [place] [address] Name: VINCENT CASTRO Member Role: Profiling Machine Setup Operator Care Team Related Persons Name: CHELSI HEARN Care Team Personnel Name: IVELISSE LISA MD Member Role: Pain Management Address: Address: [place] [id number]- Name: Santiago Carballo Clerk Joan PT Position: P3 Scheduling - Yarn Spooler Advanced Member Role: Other Name: SERAFIN AHUMADA MD Member Role: Sander [employer] Address: Address: [facility] [address] [place] [address]- Name: ROZINA JEFFERSON MD Member Role: Oncologist Address: Address: [address] [place] [address]- Name: OLU GEORGE Member Role: Dentist Name: NICKIE COOK MD Member Role: Fire Chief Deputy Address: Address: [address] [place] [address]- Name: LIZZETTE SALES DO Position: P4 Physician - Primary Care Member Role: Primary Care Physician Address: Address: [address] [place] [address] Name: VINCENT CASTRO Member Role: Profiling Machine Setup Operator Care Team Related Persons Name: CHELSI HEARN Care Team Personnel Name: IVELISSE LISA MD Member Role: Pain Management Address: Address: [address] [place] [id number]- Name: Santiago Carballo PT Position: P3 Scheduling - Yarn Spooler Advanced Member Role: Other Name: SERAFIN AHUMADA MD Member Role: S[employer] Address: Address: [facility] [address] [place] [address]- Name: ROZINA JEFFERSON MD Member Role: Oncologist Address: Address: [address] [place] [address]- Name: OLU GEORGE Member Role: Dentist Name: NICKIE COOK MD Member Role: Fire Chief Deputy Address: Address: [address] [place] [address]- Name: LIZZETTE SALES DO Position: P4 Physician - Primary Care Member Role: Primary Care Physician Address: Address: [address] [place] [address] Name: VINCENT CASTRO Member Role: Profiling Machine Setup Operator Name: CHANTAL ZAPIEN MD Position: [facility] Physician Member Role: Attending Physician Address: Address: [address] [place] [address] Care Team Related Persons Name: CHELSI HEARN Care Team Personnel Name: IVELISSE LISA MD Member Role: Pain Management Address: Address: [address] [place] [address]- Name: Santiago Carballo PT Position: P3 Scheduling - Yarn Spooler Advanced Member Role: Other Name: SERAFIN AHUMADA MD Member Role: Sander [employer] Address: Address: [facility] [address] [place] [address]- Name: ROZINA JEFFERSON MD Member Role: Oncologist Address: Address: [address] [place] [address]- Name: OLU GEORGE Member Role: Dentist Name: NICKIE COOK MD Member Role: Fire Chief Deputy Address: Address: [address] [place] [address]- Name: LIZZETTE SALES DO Position: P4 Physician - Primary Care Member Role: Primary Care Physician Address: Address: [address] [place] [address]- Name: VINCENT CASTRO Member Role: Profiling Machine Setup Operator Care Team Related Persons Name: CHELSI HEARN Care Team Personnel Name: IVELISSE LISA MD Member Role: Pain Management Address: Address: [address] [place], [place] [id number]- Name: Santiago Carballo PT Position: P3 Scheduling - Yarn Spooler Advanced Member Role: Other Name: SERAFIN AHUMADA MD Member Role: Sander [employer] Address: Address: [facility] [address] [place] [address]- Name: ROZINA JEFFERSON MD Member Role: Oncologist Address: Address: [address] [place] [address]- [place] Name: OLU GEORGE Member Role: Dentist Name: NICKIE COOK MD Member Role: Fire Chief Deputy Address: Address: [address] Name: LIZZETTE SALES DO Position: P4 Physician - Primary Care Member Role: Primary Care Physician Address: Address: [address] [place] [address] Name: VINCENT CASTRO Member Role: Profiling Machine Setup Operator Care Team Related Persons Name: CHELSI HEARN Care Team Personnel Name: IVELISSE LISA MD Member Role: Pain Management Address: Address: [address] [place] [address]- Name: Santiago Carballorpatrick Franco PT Position: P3 Scheduling - Yarn Spooler Advanced Member Role: Other Name: SERAFIN AHUMADA MD Member Role: Sander [employer] Address: Address: [facility] [address] [place] [id number]- Name: ROZINA JEFFERSON MD Member Role: Oncologist Address: Address: [address] [place] [address]- Name: OLU GEORGE Member Role: Dentist Name: NICKIE COOK MD Member Role: Fire Chief Deputy Address: Address: [address] [place], [place] [id number] [place] [address] Name: LIZZETTE SALES DO Position: P4 Physician - Primary Care Member Role: Primary Care Physician Address: Address: [address] [place] [address]- Name: VINCENT CASTRO Member Role: Profiling Machine Setup Operator Care Team Related Persons Name: CHELSI HEARN Care Team Personnel Name: IVELISSE LISA MD Member Role: Pain Management Address: Address: [address] [place], [place] [id number]- Name: Santiago Carballo PT Position: P3 Scheduling - Yarn Spooler Advanced Member Role: Other Name: SERAFIN AHUMADA MD Member Role: Sander [employer] Address: Address: [facility] [address] [place] [id number]- Name: ROZINA JEFFERSON MD Member Role: Oncologist Address: Address: [address] [place] [address]- [place] Name: OLU GEORGE Member Role: Dentist Name: NICKIE COOK MD Member Role: Fire Chief Deputy Address: Address: [address] [place], [place] [id number] [place] [address] Name: LIZZETTE SALES DO Position: P4 Physician - Primary Care Member Role: Primary Care Physician Address: Address: [address] [place] [address] Name: VINCENT CASTRO Member Role: Profiling Machine Setup Operator Care Team Related Persons Name: CHELSI HEARN Care Team Personnel Name: IVELISSE LISA MD Member Role: Pain Management Address: Address: [address] [place] [address] Name: Santiago Carballorpatrick Franco PT Position: P3 Scheduling - Yarn Spooler Advanced Member Role: Other Name: SERAFIN AHUMADA MD Member Role: Sander [employer] Address: Address: [facility] [address] [place] [address]- Name: ROZINA JEFFERSON MD Member Role: Oncologist Address: Address: [address] [place] [address]- Name: OLU GEORGE Member Role: Dentist Name: NICKIE COOK MD Member Role: Fire Chief Deputy Address: Address: [address] [place], [place] [id number] [place] [address] Name: LIZZETTE SALES DO Position: P4 Physician - Primary Care Member Role: Primary Care Physician Address: Address: [address] [place] [id number] [place] [address] Name: VINCENT CASTRO Member Role: Profiling Machine Setup Operator Care Team Related Persons Name: CHELSI HEARN Care Team Personnel Name: IVELISSE LISA MD Member Role: Pain Management Address: Address: [address] [place] [address]- Name: Santiago Carballork Joan PT Position: P3 Scheduling - Yarn Spooler Advanced Member Role: Other Name: SERAFIN AHUMADA MD Member Role: Sander [employer] Address: Address: [facility] [address] [place] [address]- Name: ROZINA JEFFERSON MD Member Role: Oncologist Address: Address: [address] [place] [address]- [place] Name: OLU GEORGE Member Role: Dentist Name: NICKIE COOK MD Member Role: Fire Chief Deputy Address: Address: [address] [place] [address]- [place] Name: LIZZETTE SALES DO Position: P4 Physician - Primary Care Member Role: Primary Care Physician Address: Address: [address] [place] [address] Name: VINCENT CASTRO Member Role: Profiling Machine Setup Operator Care Team Related Persons Name: CHELSI HEARN Care Team Personnel Name: IVELISSE LISA MD Member Role: Pain Management Address: Address: [address] [place] [address]- Name: Santiago Carballorpatrick Franco PT Position: P3 Scheduling - Yarn Spooler Advanced Member Role: Other Name: SERAFIN AHUMADA MD Member Role: Sander [employer] Address: Address: [facility] [address] [place] [address]- Name: ROZINA JEFFERSON MD Member Role: Oncologist Address: Address: [address] [place] [address]- Name: OLU GEORGE Member Role: Dentist Name: NICKIE COOK MD Member Role: Fire Chief Deputy Address: Address: [address] [place], [place] [address] Name: LIZZETTE SALES DO Position: P4 Physician - Primary Care Member Role: Primary Care Physician Address: Address: [address] [place] [address]- Name: VINCENT CASTRO Member Role: Profiling Machine Setup Operator Care Team Related Persons Name: CHELSI HEARN Name: LIDIA CAMPOS Care Team Personnel Name: IVELISSE LISA MD Member Role: Pain Management Address: Address: [address] [place] [address]- Name: Santiago Carballo PT Position: P3 Scheduling - Yarn Spooler Advanced Member Role: Other Name: SERAFIN AHUMADA MD Member Role: Sander [employer] Address: Address: [facility] [address] [place] [address]- Name: ROZINA JEFFERSON MD Member Role: Oncologist Address: Address: [address] [place] [address]- Name: OLU GEORGE Member Role: Dentist Name: NICKIE COOK MD Member Role: Fire Chief Deputy Address: Address: [address] Name: LIZZETTE SALES DO Position: P4 Physician - Primary Care Member Role: Primary Care Physician Address: Address: [address] [place] [address] Name: VINCENT CASTRO Member Role: Profiling Machine Setup Operator Care Team Related Persons Name: CHELSI HEARN Name: LIDIA CAMPOS Care Team Personnel Name: IVELISSE LISA MD Member Role: Pain Management Address: Address: [address] [place] [address]- Name: Santiago Carballorpatrick Franco PT Position: P3 Scheduling - Yarn Spooler Advanced Member Role: Other Name: SERAFNI AHUMADA MD Member Role: Sander [employer] Address: Address: [facility] [address] [place] [id number]- Name: ROZINA JEFFERSON MD Member Role: Oncologist Address: Address: [address] [place] [address]- Name: OLU GEORGE Member Role: Dentist Name: NICKIE COOK MD Member Role: Fire Chief Deputy Address: Address: [address] [place] [address]- Name: LIZZETTE SALES DO Position: P4 Physician - Primary Care Member Role: Primary Care Physician Address: Address: [address] [place] [address] Name: VINCENT CASTRO Member Role: Profiling Machine Setup Operator Care Team Related Persons Name: CHELSI HEARN Name: LIDIA CAMPOS Care Team Personnel Name: IVELISSE LISA MD Member Role: Pain Management Address: Address: [address] [place] [address] Name: Santiago Carballork Joan PT Position: P3 Scheduling - Yarn Spooler Advanced Member Role: Other Name: SERAFIN AHUMADA MD Member Role: Sander [employer] Address: Address: [facility] [address] [place] [address]- Name: ROZINA JEFFERSON MD Member Role: Oncologist Address: Address: [address] Name: OLU GEORGE Member Role: Dentist Name: NICKIE COOK MD Member Role: Fire Chief Deputy Address: Address: [address] [place] [address]- Name: LIZZETTE SALES DO Position: P4 Physician - Primary Care Member Role: Primary Care Physician Address: Address: [address] [place] [address] Name: VINCENT CASTRO Member Role: Profiling Machine Setup Operator Care Team Related Persons Name: CHELSI HEARN Name: LIDIA CAMPOS Care Team (unrecognized sect ion and content) Personnel Name: LIZZETTE SALES DO Address: Address: [address] [place] [address] Name: Santiago Carballo PT Care Team Personnel Name: IVELISSE LISA MD Member Role: Pain Management Address: Address: [address] [place] [address] Name: Santiago Carballorpatrick Franco PT Position: P3 Scheduling - Yarn Spooler Advanced Member Role: Other Name: LIZZETTE SALES DO Position: P4 Physician - Primary Care Med Service: Active Provider Member Role: Primary Care Physician Address: Address: [address] [place] [address] Care Team Related Persons Name: CHELSI HEARN Care Team Personnel Name: IVELISSE LISA MD Member Role: Pain Management Address: Address: [address] [place] [address]- Name: Santiago Carballorpatrick Franco PT Position: P3 Scheduling - Yarn Spooler Advanced Member Role: Other Name: SERAFIN AHUMADA MD Member Role: Sander [employer]enc[employer] Address: Address: [facility] [address] Name: OLU GEORGE Member Role: Dentist Name: LIZZETTE SALES DO Position: P4 Physician - Primary Care Member Role: Primary Care Physician Address: Address: [address] [place] [address] Name: VINCENT CASTRO Member Role: Profiling Machine Setup Operator Care Team Related Persons Name: CHELSI HEARN Care Team Personnel Name: IVELISSE LISA MD Member Role: Pain Management Address: Address: [address] Name: Santiago Carballorpatrick Franco PT Position: P3 Scheduling - Yarn Spooler Advanced Member Role: Other Name: SERAFIN AHUMADA MD Member Role: Sander [employer] Address: Address: [facility] [address] [place] [address]- Name: OLU GEORGE Member Role: Dentist Name: LIZZETTE SALES DO Position: P4 Physician - Primary Care Member Role: Primary Care Physician Address: Address: [address] [place] [address] Name: VINCENT CASTRO Member Role: Profiling Machine Setup Operator Care Team Related Persons Name: CHELSI HEARN Care Team Personnel Name: IVELISSE LISA MD Member Role: Pain Management Address: Address: [address] [place] [address]- Name: Santiago Carballo PT Position: P3 Scheduling - Yarn Spooler Advanced Member Role: Other Name: SERAFIN AHUMADA MD Member Role: Sander [employer]enc[employer] Address: Address: [facility] [address] [facility] [place] [address]- Name: OLU GEORGE Member Role: Dentist Name: LIZZETTE SALES DO Position: P4 Physician - Primary Care Member Role: Primary Care Physician Address: Address: [address] [place] [address] Name: VINCENT CASTRO Member Role: Profiling Machine Setup Operator Care Team Related Persons Name: CHELSI HEARN Care Team Personnel Name: IVELISSE LISA MD Member Role: Pain Management Address: Address: [address] [place] [address] Name: Santiago Carballo Clerk Joan PT Position: P3 Scheduling - Yarn Spooler Advanced Member Role: Other Name: SERAFIN AHUMADA MD Member Role: Sander [employer]en Pencils Address: Address: [facility] [address] Name: OLU GEORGE Member Role: Dentist Name: LIZZETTE SALES DO Position: P4 Physician - Primary Care Member Role: Primary Care Physician Address: Address: [address] [place] [address] Name: VINCENT CASTRO Member Role: Profiling Machine Setup Operator Care Team Related Persons Name: CHELSI HEARN Care Team Personnel Name: IVELISSE LISA MD Member Role: Pain Management Address: Address: [address] [place] [address] Name: Santiago Carballo Clerk Joan PT Position: P3 Scheduling - Yarn Spooler Advanced Member Role: Other Name: SERAFIN AHUMADA MD Member Role: Sander [employer]en [employer]encils Address: Address: [facility] [address] Name: OLU GEORGE Member Role: Dentist Name: LIZZETTE SALES DO Position: P4 Physician - Primary Care Member Role: Primary Care Physician Address: Address: [address] [place] [address] Name: VINCENT CASTRO Member Role: Profiling Machine Setup Operator Care Team Related Persons Name: CHELSI HEARN INFORMATION SOURCE (unrecogn ized section and content) DATE CREATED AUTHOR 12/22/2023 [facility] ([place]) DATE CREATED AUTHOR AUTHOR'S ORGANIZ ATION 02/16/2024 [facility] FOR RECORDS PERTAINING TO PATIENTS WHO ARE OR HAVE BEEN ENROLLED IN A CHEMICAL DEPENDENCY/SUBSTANCEABUSE PROGRAM, SOME INFORMATION MAY BE OMITTED. This clinical summary was aggregated from multiple sources. Caution should be exercised in using it in the provision of clinical care. This summary normalizes information from multiple sources, and as a consequence, information in this document may materially change the coding, format and clinical context of patient data. In addition, data may be omitted in some cases. CLINICAL DECISIONS SHOULD BE BASED ON THE PRIMARY CLINICAL RECORDS. [facility] [employer] [facility]. provides no warranty or guarantee of the accuracy or completeness of information in this document.
[2024-03-27 22:36] VITALS: BP 170/80; PULSE 82; RESP 16; TEMP 36.8; O2SAT 94
[2024-03-27] MEDS: HYDROcodone Bitartrate/Apap 5/325 Tablet PO (22:41)
[2024-03-28 13:11] LABS: Pathologist Review Reviewed
== END 2024-03-27 22:46 | disposition home or self-care (01) ==
PROVIDERS: Emergency Provider Emergency Medicine; PCP Family Medicine; Visit Provider Emergency Medicine
DX: R07.9 Chest pain, unspecified (principal); C91.10 Chronic lymphocytic leukemia of B-cell type not having achieved remission; R16.1 Splenomegaly, not elsewhere classified; I10 Essential (primary) hypertension; R06.02 Shortness of breath; R59.1 Generalized enlarged lymph nodes; E78.00 Pure hypercholesterolemia, unspecified; E03.9 Hypothyroidism, unspecified; Z79.890 Hormone replacement therapy; Z79.899 Other long term (current) drug therapy; Z90.710 Acquired absence of both cervix and uterus; E87.1 Hypo-osmolality and hyponatremia; E87.8 Other disorders of electrolyte and fluid balance, not elsewhere classified
CPT/HCPCS: 71275; 80048; 84484; 85025; 93005; 96361; 96374; 96375; 99284; Q9967; A4216; J2405

== ENCOUNTER 2024-04-01 19:50 | Inpatient (IN) | payer MEDICARE, SELFPAY ==
[2024-04-01 19:51] VITALS: BP 125/71; PULSE 72; RESP 17; TEMP 36.6; O2SAT 98; BMI 22.7
--- NOTE | 2024-04-01 20:07 | EDS_ITS ---
HPI History of Present Illness Chief Complaint: General Illness [facility] Medical History Retroperitoneal lymphadenopathy Abdominal pain Depression Back pain Constipation Wears hearing aid Wears glasses Cancer Thyroid disease Walker as ambulation aid High cholesterol Non-smoker Leg cramps History of echocardiogram History of stress test Cardiology follow-up encounter Cholinesterase deficiency Encounter for education Anemia CLL (chronic lymphocytic leukemia) Hypothyroidism Vertigo Varicose veins of legs Supraclavicular mass Supraclavicular lymphadenopathy Skin lesion of face Skin lesion of neck Stress incontinence Psoriasis Osteoporosis Mitral valve prolapse Low back pain with right-sided sciatica Hyperlipidemia High blood pressure Hematuria Home Medications ?Medication ?Instructions ?Recorded ?Last Taken ?Type ascorbic acid (vitamin C) 100 mg 100 mg PO DAILY 08/14/22 10/20/23 History tablet calcium carbonate 600 mg PO BID 08/14/22 10/20/23 History cholecalciferol (vitamin D3) 10 10 mcg PO DAILY 08/14/22 10/20/23 History mcg (400 unit) capsule lutein 20 mg capsule 20 mg PO DAILY 08/14/22 10/20/23 History magnesium carbonate 1 cap PO DAILY 08/18/22 10/20/23 History polyethylene glycol 3350 17 4 g PO DAILY 02/23/23 10/20/23 History gram/dose oral powder (Miralax) psyllium husk 3.4 gram/5.4 gram 1 tbsp PO DAILY 02/23/23 10/20/23 History oral powder (Metamucil) mecobalamin (vitamin B12) 1,000 1,000 mcg PO Q OTHER DAY 03/01/23 10/20/23 History mcg lozenges levothyroxine 88 mcg capsule 88 mcg PO DAILY 06/01/23 10/20/23 History Disability Placard #1 ea 09/07/23 Unknown Rx zanubrutinib 80 mg capsule 320 mg PO BID 10/18/23 03/20/24 History (Brukinsa) disability placard #1 ea 01/03/24 Unknown Rx losartan 50 mg tablet 50 mg PO QHS 01/03/24 Unknown History docusate sodium 100 mg capsule 100 mg PO BID 03/22/24 Unknown History (Colace) hydrocodone-acetaminophen 5-325mg 1 tab PO Q6H PRN PRN Pain 3 days 03/27/24 Unknown Rx 5mg-325mg #10 TABLETS Allergy/AdvReac Type Severity Reaction Status Date / Time No Known Allergies Allergy Verified 04/01/24 19:51 Family History Brother CAD (coronary artery disease) Cancer Hyperlipemia Mother Cancer Leukemia Sister Cancer Sarcoma Surgical History Hx of kyphoplasty S/P abdominal hysterectomy H/O umbilical hernia repair History of tonsillectomy S/P appendectomy Social History Smoking Status: Never smoker alcohol intake: never substance use type: does not use EXAM Physical Exam Const Vital Signs: 04/01/24 19:51 04/01/24 20:05 04/01/24 21:48 Temperature 98 F Temperature Source Oral Pulse Rate 72 69 Respiratory Rate 17 16 Respiratory Effort Normal Respiratory Pattern Normal Blood Pressure 125/71 H 116/90 H Blood Pressure Mean 89 98 Pulse Ox 98 98 Oxygen Delivery Method Room Air Room Air MDM MDM MDM Narrative Medical decision making narrative: HISTORY OF PRESENT ILLNESS: 84-year-old female presents with nausea vomiting. No she was recently evaluated for shoulder and chest pain. She notes she is continues to have chest pain on and off. She also reports increased confusion and feeling dizzy at times and having difficulty getting words out. Notes her PCP thought she may have been dehydrated during her last visit. No she is trying to hydrate from home but continues to have nausea and vomiting. REVIEW OF SYSTEMS: Pertinent positives: Chest pain, nausea vomiting, dizziness, dehydration Pertinent negatives: Syncope, focal weakness PHYSICAL EXAM: Nursing triage notes reviewed, Vital signs reviewed Constitutional: please see mdm HENT: MMM Eyes: Pupils equal round and reactive to light, Extraocular muscles intact Neck: No stridor, no JVD, full neck ROM Lungs: Clear to auscultation, No wheezing or rales. No increased work of breathing, no conversational dyspnea, no accessory muscle use, no nasal flaring. No respiratory distress noted Heart: Regular rate and rhythm, No murmurs, No rubs and No gallops, 2+ distal pulses (radial, femoral, posterior tibial) in all extremities Abdomen: Soft, there is no tenderness, rigidity, rebound or guarding, no obvious peritoneal signs, no palpable pulsatile abdominal masses, no auscultated abdominal bruit : No CVAT Extremities: No edema Neuro: No focal neurological deficits, cranial nerves II through XII intact, 5/5 strength in all extremities. Intact sensation to light touch in all extremities, 2+ reflexes bilateral patella tendons. No ataxia. Skin: No rash or lesions noted MEDICAL DECISION MAKING: Chief Complaint: As per HPI External records reviewed: Reviewed prior ED note from 03/27/2024, reviewed CTA of the chest which showed no evidence of PE Factors affecting care: CLL, hypothyroidism, hyperlipidemia Social determinants of health: none History obtained from others: Family Consults: Internal medicine (Dr. Thomason) MDM Narrative: The patient was initially hemodynamically stable, afebrile and nontoxic- appearing. She had no focal neurodeficits suggest posterior circulation CVA, abdomen was soft slightly tender, no peritoneal signs, no cardiopulmonary abnormalities noted on initial exam. I considered the following differential diagnosis: ICH, ACS, anemia, arrhythmia, electrolyte disturbance, dehydration, acute kidney injury, hepatobiliary pathology, UTI I obtained a broad lab and imaging workup to further elucidate etiology of patient complaints. I gave the patient 1 L IV fluid, Zofran for rehydration and nausea vomiting control. ALL IMAGES (IF OBTAINED) HAVE BEEN PERSONALLY REVIEWED AND INTERPRETED BY MYSELF. CBC with leukocytosis suggestive of systemic inflammation, no anemia or thrombocytopenia BMP with severe hyponatremia sodium 120 (baseline in the 130s), hypokalemia owing to severe GI volume losses, no evidence of metabolic acidosis or endorgan perfusion with normal bicarb and anion gap, no acute kidney injury noted Lipase is wnl indicating no pancreatic inflammation. LFTs show no evidence of hepatobiliary pathology. CT scan of the head is negative for ICH, CT scan abdomen pelvis shows no evidence of acute surgical pathology in the abdomen COVID-negative I have personally reviewed the patient's chest x-ray. Chest x-ray is unrem arkable for pulmonary edema, pneumothorax, pneumonia or focal cardiopulmonary abnormality. The synthesis of the patient's history, physical exam, labs images suggest severe dehydration from GI losses specifically severe hyponatremia to require careful and slow repletion. Called the hospitalist who accepted the patient's case. The patient and/or family, caregivers express understanding. The patient and/or family, caregivers agrees with the plan. Shared decision making: I will have a discussion with the patient and or visitors regarding risk/benefits of further testing or admission. They will be made aware of of the risk/benefits inherent in this decision they will be given the opportunity to voice understanding. Total critical care time today provided was at least 0 minutes. This excludes separately billable procedures. Critical care time (if documented) is secondary to the patient having high probability of clinically significant/life threatening deterioration in the patient's condition which required my urgent intervention. Impression: 1. Nausea vomiting 2. Dehydration 3. Hyponatremia 4. Hypokalemia Dispo: Discharge home This note was generated with [employer] dictation software. It may contain incorrect words, spelling, and punctuation that were not noted in review of the chart prior to signing. Lab Data Labs: Laboratory Results - last 24 hr 04/01/24 20:10 WBC 11.5 H RBC 4.10 L Hgb 12.3 Hct 34.5 L MCV 84.1 D MCH 30.0 MCHC 35.7 D RDW Std Deviation 39.8 RDW Coeff of Bell 13.0 Plt Count 284 MPV 9.6 Sodium 120 L Potassium 3.3 L Chloride 81 L Carbon Dioxide 28.0 Anion Gap 11 BUN 18 Creatinine 0.87 Estim Creat Clear Calc 37.39 Est GFR (MDRD) Af Amer 80 Est GFR (MDRD) Non-Af 66 BUN/Creatinine Ratio 20.8 H Glucose 139 H Calcium 8.6 Total Bilirubin 0.60 AST 12 L ALT 32 Alkaline Phosphatase 65 Troponin I High Sens 6 Total Protein 6.3 L Albumin 3.7 Globulin 2.6 Albumin/Globulin Ratio 1.4 Lipase 56 Radiography Diagnostic Testing: Clinical Impression(s) from Imaging Studies Brain CT 04/01/24 20:20 IMPRESSION: No acute findings. Microvascular ischemic changes. Mild atrophy. Electronically Signed: Esperanza Duckworth MD at 21:40 EDT Reading Location ID and State: [id number] / Tel , Service support , Abdomen/Pelvis CT 04/01/24 20:21 IMPRESSION: No acute findings in the abdomen or pelvis. Chronic compression fractures and degenerative changes of the lumbar spine. Electronically Signed: Esperanza Duckworth MD at 21:46 EDT Reading Location ID and State: [id number] / Tel , Service support , Chest X-Ray 04/01/24 20:45 IMPRESSION: No radiographic evidence of acute cardiopulmonary disease. Electronically Signed: Matt Garvin DO at 22:28 EDT , Discharge Plan Triage Chief Complaint: General Illness ED Provider: Lito Mendenhall Dx/Rx/DC Orders Prescriptions: No Action ascorbic acid (vitamin C) 100 mg tablet 100 mg PO DAILY calcium carbonate 600 mg calcium (1,500 mg) tablet 600 mg PO BID cholecalciferol (vitamin D3) 10 mcg (400 unit) capsule 10 mcg PO DAILY lutein 20 mg capsule 20 mg PO DAILY Rx Instructions: give with meal/snack magnesium carbonate 1 cap PO DAILY levothyroxine 88 mcg capsule 88 mcg PO DAILY losartan 50 mg tablet 50 mg PO QHS Metamucil 3.4 gram/5.4 gram powder 1 tbsp PO DAILY Rx Instructions: mix into at least 8 oz of water or juice before administering polyethylene glycol 3350 [Miralax] 17 gram/dose powder 4 g PO DAILY mecobalamin (vitamin B12) 1,000 mcg lozenge 1,000 mcg PO Q OTHER DAY Rx Instructions: allow to dissolve in mouth OR may chew lightly before swallowing (DME) Disability Placard See Rx Instructions .Route .MEDSUPPLY Qty: 1 0RF Rx Instructions: As directed (DME) disability placard See Rx Instructions .Route .MEDSUPPLY Qty: 1 0RF Rx Instructions: . Brukinsa 80 mg capsule 320 mg PO BID docusate sodium [Colace] 100 mg capsule 100 mg PO BID hydrocodone-acetaminophen 5-325 mg tablet 1 tab PO Q6H PRN PRN (Reason: Pain) 3 Days Qty: 10 0RF Primary Care Provider: Lisette Apple Referrals: Lisette Apple DO [Primary Care Provider] - Print Language: Macedonian
--- NOTE | 2024-04-01 20:20 | CT_ITS ---
STUDY: CT BRAIN WITHOUT CONTRAST REASON FOR EXAM: Female, 84 years old. confusion r/o ICH RADIATION DOSAGE (If Supplied By Facility): CTDIvol = ( 44.99 ) mGy, DLP = ( 863.60 ) mGycm TECHNIQUE: Transaxial CT imaging of the brain was performed without administration of intravenous contrast material. Individualized dose optimization techniques were used for this CT. COMPARISON: None. FINDINGS: Normal soft tissue structures. Normal calvarium. Mild low-attenuation changes in the periventricular white matter. Mild ventriculomegaly commensurate with the degree of sulcal atrophy. Mild involutional changes are consistent with the patient''s age. There is no intracranial hemorrhage. There are no findings of an acute ischemic infarction. Normal visualized paranasal sinuses. CT/Brain/Head without Contrast IMPRESSION: No acute findings. Microvascular ischemic changes. Mild atrophy. Electronically Signed: Esperanza Duckworth MD at 21:40 EDT Reading Location ID and State: [id number] / Tel , Service support ,
--- NOTE | 2024-04-01 20:21 | EKG12_ITS ---
Test Reason : GEN. ILLNESS Blood Pressure : / mmHG Vent. Rate : 073 BPM Atrial Rate : 073 BPM P-R Int : 202 ms QRS Dur : 088 ms QT Int : 394 ms P-R-T Axes : 071 039 057 degrees QTc Int : 434 ms Normal sinus rhythm Normal ECG Confirmed by KATERIN RAMOS, UZIEL ([id number]), primer expeditor and drier PEDRO WAGNER ([id number]) on 04/03/2024 9:38:56 AM Referred By: LEEANNA Confirmed By:UZIEL CONKLIN MD
--- NOTE | 2024-04-01 20:21 | CT_ITS ---
EXAM: CT ABDOMEN AND PELVIS WITHOUT INTRAVENOUS CONTRAST CLINICAL INDICATION: constipation TECHNIQUE: Helically acquired images were obtained of the abdomen and pelvis without intravenous contrast. This CT exam was performed using one or more of the following dose reduction techniques: automated exposure control, adjustment of the mA and/or kV according to patient size, and/or use of iterative reconstruction technique. COMPARISON: None. FINDINGS: LOWER THORAX: Unremarkable. Lung bases are clear. No cardiomegaly. No significant pericardial effusion. ABDOMEN: LIVER: Unremarkable. Homogeneous. GALLBLADDER AND BILE DUCTS: Unremarkable. No calcified gallstones. No gallbladder distention or wall edema. No intra- or extrahepatic biliary ductal dilation. PANCREAS: Unremarkable. No focal cystic mass. SPLEEN: Unremarkable. Normal size without focal cystic or solid mass. ADRENALS: Unremarkable. No nodules. KIDNEYS AND URETERS: Unremarkable. Normal renal size and position. No stones or hydronephrosis. STOMACH AND BOWEL: Mild to moderate stool burden, unremarkable. No stomach or bowel distention. No focal inflammatory change. PELVIS: APPENDIX: No evidence of acute appendicitis. BLADDER: Unremarkable. REPRODUCTIVE: Unremarkable as visualized. No mass. ABDOMEN and PELVIS: INTRAPERITONEAL SPACE: No ascites. No free air. BONES/JOINTS: Mild this shape scoliosis of the thoracolumbar spine. Multiple chronic lumbar compression fractures with vertebroplasty at L2 and L3. Degenerative disc changes. Mild anterolisthesis at L4-5. No suspicious lytic or blastic abnormality. SOFT TISSUES: Unremarkable. No discrete abdominal or pelvic wall hernia. VASCULATURE: Unremarkable. Abdominal aorta is normal in caliber. LYMPH NODES: Unremarkable. No enlarged lymph nodes. CT/Abdomen/Pelvis without Cont IMPRESSION: No acute findings in the abdomen or pelvis. Chronic compression fractures and degenerative changes of the lumbar spine. Electronically Signed: Esperanza Duckworth MD at 21:46 EDT Reading Location ID and State: [id number] / Tel , Service support ,
[2024-04-01] MEDS: 0.9% Normal Saline (500mL Bag) 500 ML 1000 ML IV (20:27)
[2024-04-01] MEDS: Ondansetron 4 MG/2 ML Vial IV (20:27)
[2024-04-01 20:34] LABS: Hematocrit 34.5 % (37-47); Hemoglobin 12.3 g/dL (12.0-15.0); Mean Corp Hgb Conc 35.7 g/dL (32-36); Mean Corpuscular Volume 84.1 fL (81-99); Mean Platelet Vol. 9.6 fl (6.2-12.0); Platelet Count 284 K/mm3 (150-450); RBC Distribution Width SD 39.8 fl (35.1-43.9); White Blood Count 11.5 K/mm3 (4.4-11.0)
--- OUTSIDE RECORDS SUMMARY | 2024-04-01 20:35 | XMS RPT_ITS | CCD ---
Author Organization [facility] Inform ion [facility] Care Team Providers Care Congressional Assistant Name Role Phone Tacos Estes DO Unavailable LIZZETTE SALES DO Primary Care Physician [phone] Joan Carballo PT Unavailable Unavailable LIZZETTE SALES DO Primary Care Physician [phone] LIZZETTE SALES DO Attending Unavailable MÓNICA DO, LIZZETTE Primary Care Unavailable MÓNICA DO LIZZETTE Admitting Unavailable LU SUPERVISOR TESTING-SENIOR PORTFOLIO ANALYSTNURIS Attending Yana SALES DO, LIZZETTE Primary Care [...] MÓNICA DO, LIZZETTE Primary Care Unavailable KAREN SUPERVISOR TESTING-SENIOR PORTFOLIO ANALYST, LEONARDO Attending Yana SALES DO, LIZZETTE Primary Care Unavailable MÓNICA DO, LIZZETTE Attending Unavailable MÓNICA DO, LIZZETTE Primary Care Unavailable KAREN SUPERVISOR TESTING-SENIOR PORTFOLIO ANALYST, LEONARDO Attending Yana SALES DO, LIZZETTE Primary Care Unavailable MÓNCIA DO, LIZZETTE Attending Unavailable MÓNICA DO, LIZZETTE Primary Care Unavailable RICHARDSON SUPERVISOR TESTING-SENIOR PORTFOLIO ANALYSTBENITO Attending Unavailyris SALES DO, LIZZETTE Primary Care Unavailable MÓNICA DURAN, LIZZETTE Attending Unavailable MÓNICA DURAN, LIZZETTE Primary Care Unavailable MÓNICA DURAN, LIZZETTE Primary Care Unavailable MÓNICA DURAN, LIZZETTE Attending Unavailable LU MONCADA, NURIS Floerz Attending Yana SALES DO, LIZZETTE Primary Care Unavailable Medications Current Medications Medication [...] every six hours as needed for pain [place] 325- 5 mg oral tablet Dose = [...] oral solution (1 source) alpha-Adrenergic Agonist, Uncompetitive A-qrmill-C-aspartat e Receptor Antagonist, Sigma-1 Agonist Start: 08-12-2022 End: 08-26-2022 take 1 dose by mouth four times daily as needed Bromfed DM oral syrup Dose = 5 mL, Oral, QID, PRN for cold symptoms, X 7 day(s), # 120 mL, 1 Refill(s), Pharmacy: [facility], Lab test positive for detection of [...] 0 Refill(s), 05/14/23 5:37:00 PM EST, Pharmacy: [facility], 158.5, cm, 10/23/22 9:40:00 EDT, Height, 59.3, kg, 05/04/23 17:09:00 EST, Dosing Weight Start Date: 05/04/23 Stop Date: 05/14/23 Status: Ordered chromium picolinate 0.2 mg oral tablet (20 sources) Start: 04-11-2019 chromium picolinate 200 mcg oral tablet Dose : 200 mcg = 1 tab(s), Oral, Daily, # 100 tab(s), 0 Refill(s) Start Date: 04/11/19 Status: Ordered DME MISCellaneous (5 sources) Start: 10-19-2023 DME MISCellaneous See Instructions, Electronic lift chair, # 1 EA, 0 Refill(s), Compression fracture of vertebra CLL (chronic lymphocytic leukemia), 59.3 Start Date: 10/19/23 Status: Ordered docusate sodium 100 mg oral capsule (1 source) Start: 02-16-2024 Colace 100 mg oral capsule Dose : 100 mg = 1 cap(s), Oral, BID, PRN for constipation, # 60 cap(s), 5 Refill(s), Pharmacy: [facility], Constipation, 157, cm, 02/16/24 9:20:00 EDT, Height, kg, 02/16/24 9:20:00 EDT, Dosing Weight Start Date: 02/16/24 Status: Ordered hydroCHLOROthiazide 25 mg oral tablet (9 sources) Thiazide Diuretic Start: 10-29-2021 hydroCHLOROthiazide 25 mg oral tablet Dose : 25 mg = 1 tab(s), Oral, qDay, # 90 tab(s), 3 Refill(s), Pharmacy: [facility], Hypertension High blood pressure, 159, cm, 10/29/21 7:54:00 EDT, Height, kg, 10/29/21 7:54:00 EDT, Dosing Weight Start Date: 10/29/21 Status: Ordered Start: 10-08-2020 hydroCHLOROthi azide 25 mg oral tablet Dose : 25 mg = 1 tab(s), Oral, qDay, # 90 tab(s), 3 Refill(s), Pharmacy: [facility] ([facility], Hypertension, 160, cm, 10/08/20 8:35:00 EDT, Height, kg, 10/08/20 8:35:00 EDT, Dosing Weight Start Date: 10/08/20 Status: Ordered levocetirizine dihydrochloride 5 mg oral tablet (2 sources) Histamine-1 Receptor Antagonist Start: 12-15-2023 Xyzal 5 mg oral tablet Dose : 5 mg = 1 tab(s), Oral, qHS, # 90 tab(s), 1 Refill(s), Pharmacy: [facility], Seasonal allergies, 157, cm, 12/14/23 11:20:00 EDT, Height, kg, 12/14/23 11:20:00 EDT, Dosing Weight Start Date: 12/15/23 Status: Ordered losartan potassium 50 mg oral tablet (20 sources) Angiotensin 2 Receptor Juan C Start: 02-16-2024 losartan 50 mg oral tablet Dose : 50 mg = 1 tab(s), Oral, qDay, # 90 tab(s), 1 Refill(s), Pharmacy: [facility] [place], High blood pressure High blood pressure, 157, cm, 02/16/24 9:20:00 EDT, Height, kg, 02/16/24 9:20:00 EDT, Dosing Weight Start Date: 02/16/24 Status: Ordered Start: 05-13-2023 losartan 50 mg oral tablet Dose : 50 mg = 1 tab(s), Oral, qDay, # 90 tab(s), 1 Refill(s), Pharmacy: [facility] [place], Hypertension High blood pressure, 157, cm, 11/03/23 8:52:00 EDT, Height, kg, 11/03/23 8:52:00 EDT, Dosing Weight Start Date: 11/09/23 Status: Ordered Start: 10-23-2022 losartan 50 mg oral tablet Dose : 50 mg = 1 tab(s), Oral, qDay, # 90 tab(s), 1 Refill(s), Pharmacy: [facility] [place], Hypertension High blood pressure, 158.5, cm, 10/23/22 9:40:00 EDT, Height, kg, 10/23/22 9:40:00 EDT, Dosing Weight Start Date: 10/23/22 Status: Ordered Start: 08-28-2022 End: 09-04-2022 losartan 50 mg oral tablet D ose : 50 mg = 1 tab(s), Oral, qDay, Changing dosing frequency. Do not send at this time, patient to call when needed, thank you, # 90 tab(s), 0 Refill(s), Pharmacy: [facility] [place], Hypertension High blood pressure, 160, cm, 08/28/22... Start Date: 08/28/22 Stop Date: 09/04/22 Status: Ordered Start: 08-03-2022 End: 08-10-2022 losartan 50 mg oral tablet D ose : 50 mg = 1 tab(s), Oral, BID, # 14 tab(s), 0 Refill(s), Pharmacy: [facility], Hypertension High blood pressure, 159.5, cm, 07/07/22 15:22:00 EST, Height, kg, 07/07/22 15:22:00 EST, Dosing Weight Start Date: 08/03/22 Stop Date: 08/10/22 Status: Ordered Start: 06-03-2022 losartan 50 mg oral tablet Dose : 50 mg = 1 tab(s), Oral, BID, Increased dosing, # 180 tab(s), 1 Refill(s), Pharmacy: [facility]) [place], Hypertension High blood pressure, 160, cm, 05/06/22 8:04:00 EST, Height, kg, 05/06/22 8:04:00 EST, Dosing Weight Start Date: 06/03/22 Status: Ordered Start: 10-29-2021 End: 05-26-2022 losartan 50 mg oral tablet D ose : 50 mg = 1 tab(s), Oral, qDay, # 14 tab(s), 0 Refill(s), Pharmacy: [facility], Hypertension High blood pressure, 160, cm, 05/06/22 8:04:00 EST, Height, kg, 05/06/22 8:04:00 EST, Dosing Weight Start Date: 05/12/22 Stop Date: 05/26/22 Status: Ordered Start: 10-08-2020 losartan 50 mg oral tablet Dose : 50 mg = 1 tab(s), Oral, qDay, # 90 tab(s), 3 Refill(s), Pharmacy: [facility] ([facility], Hypertension, 160, cm, 10/08/20 8:35:00 EDT, Height, kg, 10/08/20 8:35:00 EDT, Dosing Weight Start Date: 10/08/20 Status: Ordered Start: 10-05-2017 LOSARTAN POTAS SIUM 50 MG TABS once daily LOSARTAN POTASSIUM [id number] Scot D Estes DO lutein 20 mg oral capsule (20 sources) Start: 04-11-2019 lutein 20 mg oral capsule Dose : 20 mg = 1 cap(s), Oral, qDay, # 30 cap(s), 0 Refill(s) Start Date: 04/11/19 Status: Ordered magnesium oxide 250 mg oral tablet (14 sources) Start: 08-28-2022 take 1 mg by [...] tab(s), 0 Refill(s), 05/07/21 9:18:00 EST, Pharmacy: [facility], Vertigo, 160.5, cm, 04/30/21 8:25:00 EST, Height, kg, 04/30/21 8:25:00 EST, Dosing Weight Start Date: 04/30/21 Stop Date: 05/07/21 Status: Ordered meloxicam 15 mg oral tablet (4 sources) Nonsteroidal Anti-inflammatory Drug Start: 09-15-2023 Mobic 15 mg oral tablet Dose : 15 mg = 1 tab(s), Oral, qDay, # 30 tab(s), 0 Refill(s), Pharmacy: [facility], 160, cm, 09/13/23 11:37:00 EDT, Height, kg, 09/13/23 11:37:00 EDT, Dosing Weight Start Date: 09/15/23 Status: Ordered Start: 10-05-2017 MELOXICAM 15 M G TABS once daily MELOXICAM [id number] [facility] ondansetron 4 mg disintegrating oral tablet (3 sources) Serotonin-3 Receptor Antagonist Start: 03-30-2024 End: 04-06-2024 ondansetron 4 mg oral tablet, disintegrating Dose : 4 mg = 1 tab(s), Oral, q8h, PRN as needed for nausea/vomiting, X 7 day(s), # 21 tab(s), 0 Refill(s), 04/06/24 12:31:00 PM EDT, Pharmacy: [facility], Nausea and vomiting, 157, cm, 03/30/24 11:29:00 EDT, Height, kg, 03/30/24 11:29:00 EDT, Dosing Weight Start Date: 03/30/24 Stop Date: 04/06/24 Status: Ordered Start: 09-21-2023 End: 10-02-2023 Zofran 4 mg oral tablet Dose : 4 mg = 1 tab(s), Oral, q6h, PRN As needed for nausea and vomiting, take 30-60 mins prior to pain medication, X 10 day(s), # 40 tab(s), 0 Refill(s), 10/02/23 8:59:00 AM EDT, Pharmacy: [facility], Lumbar back pain, 159, cm, 09/22/23 [...] BID, # 10 tab(s), 0 Refill(s), Pharmacy: [facility], 157.6, cm, 02/23/22 13:57:00 EDT, Height, kg, 02/23/22 13:57:00 EDT, Dosing Weight Start Date: 02/23/22 Stop Date: 02/28/22 Status: Ordered levothyroxine sodium 0.088 mg oral tablet (20 sources) l-Thyroxine Start: 02-16-2024 levothyroxine 88 mcg (0.088 mg) oral tablet Dose : 88 mcg = 1 tab(s), Oral, qDay, 1 tablet by mouth daily -dosing change-not sent in, # 90 tab(s), 1 Refill(s), Pharmacy: [facility] [place], Hypothyroid, 157, cm, 02/16/24 9:20:00 EDT, Height, kg, 02/16/24 9:20:00 EDT, Dosing Weight Start Date: 02/16/24 Status: Ordered Start: 05-13-2023 levothyroxine 88 mcg (0.088 mg) [...] immediately, # 90 tab(s), 1 Refill(s), Pharmacy: [facility] ([facility], Hypothyroid, 160, cm, 05/06/22 8:04:00 EST, Height Start Date: 05/13/22 Status: Ordered Start: 10-29-2021 End: 05-26-2022 levothyroxine 75 mcg (0.075 mg) oral tablet Dose : 75 mcg = 1 tab(s), Oral, qDay, # 14 tab(s), 0 Refill(s), Pharmacy: [facility], Hypothyroidism Hypothyroid, 160, cm, 05/06/22 8:04:00 EST, Height, kg, 05/06/22 8:04:00 EST, Dosing Weight Start Date: 05/12/22 Stop Date: 05/26/22 Status: Ordered Start: 10-31-2020 levothyroxine 75 mcg (0.075 mg) oral tablet Dose : 75 mcg = 1 tab(s), Oral, qDay, # 10 tab(s), 0 Refill(s), Pharmacy: [facility], Hypothyroidism, 160, cm, 10/08/20 8:35:00 EDT, Height, kg, 10/08/20 8:35:00 EDT, Dosing Weight Start Date: 10/31/20 Status: Ordered Start: 10-05-2017 LEVOTHYROXINE SODIUM 88 MCG TABS once daily LEVOTHYROXINE SODIUM [id number] [facility] tiZANidine 4 mg oral tablet (2 sources) Central alpha-2 Adrenergic Agonist Start: 03-28-2024 End: 04-04-2024 tiZANidine 4 mg oral tablet Dose : 4 mg = 1 tab(s), Oral, q6h, PRN as needed for muscle spasm, # 30 tab(s), 0 Refill(s), Pharmacy: [facility], Thoracic myofascial strain Radicular pain in right arm, 157, cm, 02/16/24 9:20:00 EDT, Height, kg, 02/16/24 9:20:00 EDT, Dosing Weight Start Date: 03/28/24 Stop Date: 04/04/24 Status: Ordered Start: 05-11-2023 End: 05-25-2023 tiZANidine 4 mg oral tablet Dose : 4 mg = 1 tab(s), Oral, qHS, PRN as needed for muscle spasm, # 14 tab(s), 0 Refill(s), Pharmacy: [facility], Thoracic myofascial strain Radicular pain in [...] tab(s), 0 Refill(s), 07/07/21 13:41:00 EST, Pharmacy: [facility], Acute right flank pain Hematuria, 159, cm, 07/02/21 13:11:00 EST, Height, 64.6, kg, 07/02/21 13:11:... Start Date: 07/02/21 Stop Date: 07/07/21 Status: Ordered traZODone hydrochloride 50 mg oral tablet (3 sources) Serotonin Reuptake Inhibitor Start: 02-16-2024 End: 08-14-2024 traZODone 50 mg oral tablet Dose : 50 mg = 1 tab(s), Oral, qHS, # 30 tab(s), 5 Refill(s), Pharmacy: [facility], Insomnia, 157, cm, 02/16/24 9:20:00 EDT, Height, kg, 02/16/24 9:20:00 EDT, Dosing Weight Start Date: 02/16/24 Stop Date: 08/14/24 Status: Ordered Start: 11-22-2023 End: 12-22-2023 traZODone 50 mg oral tablet Dose : 50 mg = 1 tab(s), Oral, qHS, # 30 tab(s), 0 Refill(s), Pharmacy: [facility], Insomnia, 157, cm, 11/22/23 7:28:00 EDT, Height, kg, 11/22/23 7:28:00 EDT, Dosing Weight Start Date: 11/22/23 Stop Date: 12/22/23 Status: Ordered vitamin B12 (14 sources) Vitamin B12 Start: 08-28-2022 Vitamin B12 ta kes one every other day, 0 Refill(s) Start Date: 08/28/22 Status: Ordered Vitamin D3 400 intl units oral capsule (20 sources) Start: 04-11-2019 Vitamin D3 400 intl units oral capsule Dose : 400 unit(s) = 1 cap(s), Oral, Daily, 0 Refill(s) Start Date: 04/11/19 Status: Ordered zanubrutinib 80 mg oral capsule (11 sources) Start: 05-11-2023 Brukinsa 80 mg oral [...] QID, # 56 cap(s), 0 Refill(s), Pharmacy: [facility], Abdominal bloating with cramps Constipation, 159, cm, 10/15/23 11:22:00 EDT, Height, kg, 10/15/23 11:13:00 EDT, Dosing Weight Start Date: 10/15/23 Stop Date: 10/29/23 Status: Ordered Start: 10-04-2023 End: 10-11-2023 dicyclomine 20 mg oral table t Dose : 20 mg = 1 tab(s), Oral, TID, # 21 tab(s), 0 Refill(s) Start Date: 10/04/23 Stop Date: 10/11/23 Status: Ordered HYDROCHLOROT (1 source) Start: 10-05-2017 take 25 mg by mouth once daily HYDROCHLOROT 25mg by mouth once daily HYDROCHLOROT Tacos Estes potassium (1 source) Start: 10-05-2017 POTASSIUM TABS once daily POTASSIUM TABS [id number] Tacos Estes raloxifene hydrochloride 60 mg oral tablet (1 source) Estrogen Agonist/Antagoni st Start: 10-05-2017 EVISTA 60 MG TABS once every other daily RALOXIFENE HCL [id number] Tacos Estes DO Problems Active Problems Problem Classification Problem Date Documented Da te Episodic/Chronic Abdominal pain (20 sources) Right upper quadrant pain; Translations: [Tenderness of right lower quadrant of abdomen] Onset: 4 02-21-2021 Episodic Conditions associated with dizziness or vertigo (20 sources) Vertigo 04-30-2021 Episodic Disorders of lipid metabolism (20 sources) Hyperlipidemia 10-10-2019 Chronic Esophageal disorders (11 sources) Gastroesophageal reflux disease 05-11-2023 Chronic Essential hypertension (20 sources) Hypertensive disorder; Translations: [Essential (primary) hypertension] Onset: 4 10-10-2019 Chronic Genitourinary symptoms and ill-defined conditions (20 sources) Female stress incontinence 03-21-2019 Chronic Genitourinary symptoms and ill-defined conditions (20 sources) Increased frequency of urination; Translations: [Blood in urine] Onset: 4 10-10-2019 Episodic Heart valve disorders (20 sources) Mitral valve prolapse 03-21-2019 Chronic Leukemias (13 sources) Chronic lymphoid leukemia, disease 10-23-2022 Chronic Lymphadenitis (18 sources) Supraclavicular lymphadenopathy 07-07-2022 Episodic Nonspecific chest pain (20 sources) Chest pain; Translations: [Atypical chest pain] Onset: 3 03-21-2019 Episodic Osteoporosis (20 sources) Osteoporosis 03-21-2019 Chronic Other connective tissue disease (20 sources) Cramp 10-29-2021 Episodic Other fractures (1 source) Collapse of vertebra; Translations: [Collapsed vertebra, not elsewhere classified, site unspecified, initial encounter for fracture] Onset: 4 Episodic Other fractures (5 sources) Compression fracture of vertebral column 11-03-2023 [...] Abdominal bloating 02-21-2021 Episodic Other gastrointestinal disorders (5 sources) Constipation 10-15-2023 Episodic Other inflammatory condition of skin (20 sources) Psoriasis 03-21-2019 Chronic Other nervous system disorders (18 sources) Tingling of skin 07-07-2022 Episodic Other non-traumatic joint disorders (20 sources) Hip pain 04-30-2021 Episodic Other non-traumatic joint disorders (20 sources) Shoulder pain 03-21-2019 Episodic Other screening for suspected conditions (not mental disorders or infectious disease) (19 sources) Viral screening status 05-06-2022 Episodic Other skin disorders (20 sources) Skin lesion 04-30-2020 Episodic Other skin disorders (20 sources) Eruption 10-29-2021 Episodic Other skin disorders (19 sources) Lesion of skin of face 03-10-2022 Episodic Other skin disorders (18 sources) Mass of neck 07-07-2022 Episodic Other upper respiratory disease (20 sources) Seasonal allergy 10-29-2021 Chronic Other upper respiratory infections (16 sources) Upper respiratory infection 08-05-2022 Episodic Residual codes; unclassified (20 sources) Needs influenza immunization 04-09-2020 Episodic Residual codes; unclassified (2 sources) Insomnia, unspecified; Translations: [Insomnia, unspecified] Onset: 4 Episodic Residual codes; unclassified (2 sources) Insomnia 12-14-2023 Episodic Spondylosis; intervertebral disc disorders; [...] (20 sources) Patient encounter status 04-09-2020 Unclassified (14 sources) Mental state finding 08-28-2022 Unclassified (11 sources) Strain of muscle at thorax level 05-11-2023 Unclassified (10 sources) Body mass index 20-24 - normal 08-03-2023 Unclassified (10 sources) Influenza vaccination declined 08-03-2023 Unclassified (10 sources) Never used tobacco 08-03-2023 Varicose veins of lower extremity (20 sources) Varicose veins of lower extremity 10-08-2020 Episodic Past or Other Problems Problem Classification Problem Date Documented Da te Episodic/Chronic Fever of unknown origin (2 sources) Fever, unspecified; Translations: [Fever, unspecified] Onset: 05-04-2023 Episodic Unclassified (1 source) Problem Results Test Name Value Interpretation Reference Range Facility .GFRon 03-30-2024 GFR 96 ml/min/1.73sqm [facility] Comment on above: Result Comment: GFR Population [...] 15 mL/min/1.73 square meters Performed By: #### C MP, CBC, GFR, MORPH, DIFF #### [address] [address] GFR Non- 80 ml/min/1.73sqm [facility] Comment on above: Result Comment: GFR Population [...] 15 mL/min/1.73 square meters Performed By: #### C MP, CBC, GFR, MORPH, DIFF #### [address] [address] .Manual Diffon 03-30-2024 Atypical Lymphs 4.0 % Normal 0.0-5.0 [facility] Comment on above: Performed By: #### C MP, CBC, GFR, MORPH, DIFF #### [address] [address] Bands 2.0 % Normal 0.0-5.0 [facility] Comment on above: Performed By: #### C MP, CBC, GFR, MORPH, DIFF #### [address] [address] Basophil %, Manual 0.0 % Normal 0.0-2.5 [facility] Comment on above: Performed By: #### C MP, CBC, GFR, MORPH, DIFF #### [address] [address] Basophil, Abs Manual 0.0 10 3/mcL Normal 0.0-0.2 [facility] Comment on above: Performed By: #### C MP, CBC, GFR, MORPH, DIFF #### [address] [address] Eosinophil %, Manual 0.0 % Normal 0.0-7.0 [facility] Comment on above: Performed By: #### C MP, CBC, GFR, MORPH, DIFF #### [address] [address] Eosinophil, Abs Manual 0.0 10 3/mcL Normal 0.0-0.7 [facility] Comment on above: Performed By: #### C MP, CBC, GFR, MORPH, DIFF #### [address] [address] Lymphocyte %, Manual 55.0 % High 20.0-40.0 [facility] Comment on above: Performed By: #### C MP, CBC, GFR, MORPH, DIFF #### [address] [address] Lymphocyte, Abs Manual 7.1 10 3/mcL High 0.9-4.3 [facility] Comment on above: Performed By: #### C MP, CBC, GFR, MORPH, DIFF #### [address] [address] Monocyte %, Manual 3.0 % Normal 2.0-13.0 [facility] Comment on above: Performed By: #### C MP, CBC, GFR, MORPH, DIFF #### [address] [address] Monocyte, Abs Manual 0.4 10 3/mcL Normal 0.1-1.4 [facility] Comment on above: Performed By: #### C MP, CBC, GFR, MORPH, DIFF #### [address] [address] Neutrophil %, Manual 36.0 % Low 50.0-75.0 [facility] Comment on above: Performed By: #### C MP, CBC, GFR, MORPH, DIFF #### [address] [address] Neutrophil, Abs Manual 4.9 10 3/mcL Normal 2.3-8.1 [facility] Comment on above: Performed By: #### C MP, CBC, GFR, MORPH, DIFF #### [address] [address] Nucleated RBC 0.0 /100 WBC Normal [facility] Comment on above: Performed By: #### C MP, CBC, GFR, MORPH, DIFF #### [address] [address] .Morphon 03-30-2024 Anisocytosis Ql (Bld) 1+ Normal [facility] Comment on above: Performed By: #### C MP, CBC, GFR, MORPH, DIFF #### [address] [address] Ovalocytes 1+ Normal [facility] Comment on above: Performed By: #### C MP, CBC, GFR, MORPH, DIFF #### [place] [address] Platelet Estimate Normal Normal [facility] Comment on above: Performed By: #### C MP, CBC, GFR, MORPH, DIFF #### [address] [address] CBCon 03-30-2024 Erythrocyte distribution width (RBC) [Ratio] 14.2 % Normal 11.5-15.5 [facility] Comment on above: Performed By: #### C MP, CBC, GFR, MORPH, DIFF #### [place] [address] Hematocrit (Bld) [Volume fraction] 38.6 % Normal 34.0-46.0 [facility] Comment on above: Performed By: #### C MP, CBC, GFR, MORPH, DIFF #### [place] [id number] Hgb 13.5 G/dL Normal 12.0-16.0 [facility] Comment on above: Performed By: #### C MP, CBC, GFR, MORPH, DIFF #### [place] [id number] MCH (RBC) [Entitic mass] 30.4 pg Normal 27.0-33.0 [facility] Comment on above: Performed By: #### C MP, CBC, GFR, MORPH, DIFF #### [place] [address] MCHC 35.1 G/dL Normal 32.0-36.0 [facility] Comment on above: Performed By: #### C MP, CBC, GFR, MORPH, DIFF #### [place] [id number] MCV (RBC) [Entitic vol] 86.8 fL Normal 80.0-99.0 [facility] Comment on above: Performed By: #### C MP, CBC, GFR, MORPH, DIFF #### [address] [address] Platelet 257 10 3/mcL Normal 150-450 [facility] Comment on above: Performed By: #### C MP, CBC, GFR, MORPH, DIFF #### [address] [address] Platelet mean volume (Bld) [Entitic vol] 7.7 fL Normal 6.6-10.5 [facility] Comment on above: Performed By: #### C MP, CBC, GFR, MORPH, DIFF #### [address] [address] RBC 4.44 10 6/mcL Normal 4.10-5.30 [facility] Comment on above: Performed By: #### C MP, CBC, GFR, MORPH, DIFF #### [address] [address] WBC 13.0 10 3/mcL High 4.5-10.8 [facility] Comment on above: Performed By: #### C MP, CBC, GFR, MORPH, DIFF #### [address] [address] CMPon 03-30-2024 Albumin Level 4.2 G/dL Normal 3.4-4.8 [facility] Comment on above: Performed By: #### C MP, CBC, GFR, MORPH, DIFF #### [address] [address] Albumin/Globulin [Mass ratio] 1.6 {ratio} Normal 1.1-2.5 [facility] Comment on above: Performed By: #### C MP, CBC, GFR, MORPH, DIFF #### [address] [address] ALP [Catalytic activity/Vol] 86 U/L Normal 40-135 [facility] Comment on above: Performed By: #### C MP, CBC, GFR, MORPH, DIFF #### [address] [address] ALT [Catalytic activity/Vol] 37 U/L Normal 14-59 [facility] Comment on above: Performed By: #### C MP, CBC, GFR, MORPH, DIFF #### [address] [address] AST [Catalytic activity/Vol] 36 U/L Normal 10-40 [facility] Comment on above: Performed By: #### C MP, CBC, GFR, MORPH, DIFF #### [address] [address] Bili Total 0.7 mg/dL Normal 0.2-1.0 [facility] Comment on above: Result Comment: Use of this assay is not recommended for patients undergoing treatment with eltrombopag due to the potential for falsely elevated results. Performed By: #### C MP, CBC, GFR, MORPH, DIFF #### [address] [address] BUN/Creatinine Ratio 14 ratio Normal 7-27 [facility] Comment on above: Performed By: #### C MP, CBC, GFR, MORPH, DIFF #### [address] [address] Calcium [Mass/Vol] 9.2 mg/dL Normal 8.4-10.2 [facility] Comment on above: Performed By: #### C MP, CBC, GFR, MORPH, DIFF #### [address] [address] Chloride [Moles/Vol] 79 mmol/L Low 98-107 [facility] Comment on above: Performed By: #### C MP, CBC, GFR, MORPH, DIFF #### [address] [address] CO2 [Moles/Vol] 28 mmol/L Normal 23-31 [facility] Comment on above: Performed By: #### C MP, CBC, GFR, MORPH, DIFF #### [address] [address] Creatinine [Mass/Vol] 0.70 mg/dL Normal 0.55-1.02 [facility] Comment on above: Result Comment: Test ing performed on Siemens Dimension EXL analyzer using a modified kinetic Katelin technique. Performed By: #### C MP, CBC, GFR, MORPH, DIFF #### [address] [address] Electrolyte Balance 8.0 mEq/L Normal 4.0-15.0 [facility] Comment on above: Performed By: #### C MP, CBC, GFR, MORPH, DIFF #### [address] [address] Globulin 2.7 G/dL Normal [facility] Comment on above: Performed By: #### C MP, CBC, GFR, MORPH, DIFF #### [address] [address] Glucose [Mass/Vol] 106 mg/dL Normal 83-110 [facility] Comment on above: Performed By: #### C MP, CBC, GFR, MORPH, DIFF #### [address] [address] Potassium [Moles/Vol] 4.4 mmol/L Normal 3.5-5.1 [facility] Comment on above: Performed By: #### C MP, CBC, GFR, MORPH, DIFF #### [address] [address] [address] Sodium [Moles/Vol] 115 mmol/L Critically abnormal 136-145 [facility] Comment on above: Performed By: #### C MP, CBC, GFR, MORPH, DIFF #### [address] [address] Total Protein 6.9 G/dL Normal 6.4-8.2 [facility] Comment on above: Performed By: #### C MP, CBC, GFR, MORPH, DIFF #### [address] [address] Urea nitrogen [Mass/Vol] 10 mg/dL Normal 7-18 [facility] Comment on above: Performed By: #### C MP, CBC, GFR, MORPH, DIFF #### [address] [address] LABORATORYOrdered By: SYSTEM SYSTEM on 10-24-2024 Albumin BCP dye [Mass/Vol] 4.2 G/dL Normal 3.4 - 4.8 G/dL AO ADM SS Albumin/Globulin [Mass ratio] 1.6 {ratio} Normal 1.1 - 2.5 ratio AO ADM SS ALP [Catalytic activity/Vol] 86 U/L Normal 40 - 135 U/L AO ADM SS ALT With P-5'-P [Catalytic activity/Vol] 37 U/L Normal 14 - 59 U/L AO ADM SS Anisocytosis Ql (Bld) 1+ *NA* (03/30/24 12:53 PM) Invalid Interpretation Code AO Workflow SS AST With P-5'-P [Catalytic activity/Vol] 36 U/L Normal 10 - 40 U/L AO ADM SS Band form neutrophils/100 WBC (Bld) 2.0 % Normal 0.0 - 5.0 % AO Workflow SS Basophil %, Manual 0.0 % Normal 0.0 - 2.5 % AO Workflow SS Basophils (Bld) [#/Vol] 0.0 103/mcL Normal 0.0 - 0.2 10^3/mcL AO Workflow SS Bilirubin [Mass/Vol] 0.7 mg/dL Normal 0.2 - 1.0 mg/dL AO ADM SS Comment on above: Interpretive Data: U se of this assay is not recommended for patients undergoing treatment with eltrombopag due to the potential for falsely elevated results. Calcium [Mass/Vol] 9.2 mg/dL Normal 8.4 - 10. 2 mg/dL AO ADM SS Chloride [Moles/Vol] 79 mmol/L Low 98 - 107 mmol/L AO ADM SS CO2 [Moles/Vol] 28 mmol/L Normal 23 - 31 mmol/L AO ADM SS Creatinine [Mass/Vol] 0.70 mg/dL Normal 0.55 - 1.02 mg/dL AO ADM SS Comment on above: Interpretive Data: T esting performed on Siemens Dimension EXL analyzer using a modified kinetic Katelin technique. Electrolyte Balance 8.0 mEq/L Normal 4.0 - 15.0 mEq/L AO ADM SS Eosinophil %, Manual 0.0 % Normal 0.0 - 7.0 % AO Workflow SS Eosinophils (Bld) [#/Vol] 0.0 103/mcL Normal 0.0 - 0.7 10^3/mcL AO Workflow SS Erythrocyte distribution width (RBC) [Ratio] 14.2 % Normal 11.5 - 15.5 % AO Workflow SS GFR/1.73 sq M.predicted among blacks MDRD (S/P/Bld) [Vol rate/Area] 96 ml/min/1.73sqm Invalid Interpretation Code AO Chemistry S [...] M.predicted among non-blacks MDRD (S/P/Bld) [Vol rate/Area] 80 ml/min/1.73sqm Invalid Interpretation Code AO Chemistry S [...] Interpretation Code AO ADM SS Glucose [Mass/Vol] 106 mg/dL Normal 83 - 110 mg/dL AO ADM SS Hematocrit (Bld) [Volume fraction] 38.6 % Normal 34.0 - 46.0 % AO Workflow SS Hemoglobin (Bld) [Mass/Vol] 13.5 G/dL Normal 12.0 - 16.0 G/dL AO Workflow SS Lymphocytes (Bld) [#/Vol] 7.1 103/mcL High 0.9 - 4.3 10^3/mcL AO Workflow SS Lymphocytes/100 WBC (Bld) 55.0 % High 20.0 - 40.0 % AO Workflow SS MCH (RBC) [Entitic mass] 30.4 pg Normal 27.0 - 33.0 pg AO Workflow SS MCHC 35.1 G/dL Normal 32.0 - 36.0 G/dL AO Workflow SS MCV (RBC) [Entitic vol] 86.8 fL Normal 80.0 - 99.0 fL AO Workflow SS Monocytes (Bld) [#/Vol] 0.4 103/mcL Normal 0.1 - 1.4 10^3/mcL AO Workflow SS Monocytes/100 WBC (Bld) 3.0 % Normal 2.0 - 13.0 % AO Workflow SS Neutrophils (Bld) [#/Vol] 4.9 103/mcL Normal 2.3 - 8.1 10^3/mcL AO Workflow SS Neutrophils/100 WBC (Bld) 36.0 % Low 50.0 - 75.0 % AO Workflow SS Nucleated RBC 0.0 /100 WBC Invalid Interpretation Code AO Workflow SS Ovalocytes LM Ql (Bld) 1+ *NA* (03/30/24 12:53 PM) Invalid Interpretation Code AO Workflow SS Platelet mean volume (Bld) [Entitic vol] 7.7 fL Normal 6.6 - 10.5 fL AO Workflow SS Platelets (Bld) [#/Vol] 257 103/mcL Normal 150 - 450 10^3/mcL AO Workflow SS Platelets LM Ql (Bld) Normal *NA* (03/30/24 12:53 PM) Invalid Interpretation Code AO Workflow SS Potassium [Moles/Vol] 4.4 mmol/L Normal 3.5 - 5.1 mmol/L AO ADM SS Protein [Mass/Vol] 6.9 G/dL Normal 6.4 - 8.2 G/dL AO ADM SS RBC (Bld) [#/Vol] 4.44 106/mcL Normal 4.10 - 5.30 10^6/mcL AO Workflow SS Sodium [Moles/Vol] 115 mmol/L Invalid Interpretation Code 136 - 145 mmol/L AO ADM SS Urea nitrogen [Mass/Vol] 10 mg/dL Normal 7 - 18 mg/dL AO ADM SS Urea nitrogen/Creatinin e [Mass ratio] 14 ratio Normal 7 - 27 ratio AO ADM SS Variant lymphocytes/100 WBC (Bld) 4.0 % Normal 0.0 - 5.0 % AO Workflow SS WBC (Bld) [#/Vol] 13.0 103/mcL High 4.5 - 10.8 10^3/mcL AO Workflow SS LABORATORYOrdered By: SYSTEM SYSTEM on 02-14-2024 TSH Qn 1.32 m[IU]/L Normal 0.36 - 3.74 mcIU/mL AO ADM SS TSHRon 02-14-2024 TSH Qn 1.32 m[IU]/L Normal 0.36-3.74 [facility] Comment on above: Performed By: #### T SHR #### [address] [address] .GFRon 12-16-2023 GFR 111 ml/min/1.73sqm Normal [facility] ([place]) Comment on above: Result Comment: GFR Population [...] L IPID, VIDH, CMP, TSH, GFR #### [address] [address] GFR Non- 92 ml/min/1.73sqm Normal [facility] ([place]) Comment on above: Result Comment: GFR Population [...] L IPID, VIDH, CMP, TSH, GFR #### [address] [address] CMPon 12-16-2023 Albumin Level 3.8 G/dL Normal 3.4-4.8 [facility] ([place]) Comment on above: Performed By: #### L IPID, VIDH, CMP, TSH, GFR #### [address] [address] Albumin/Globulin [Mass ratio] 1.5 {ratio} Normal 1.1-2.5 [facility] ([place]) Comment on above: Performed By: #### L IPID, VIDH, CMP, TSH, GFR #### [address] [address] ALP [Catalytic activity/Vol] 77 U/L Normal 40-135 [facility] ([place]) Comment on above: Performed By: #### L IPID, VIDH, CMP, TSH, GFR #### [address] [address] ALT [Catalytic activity/Vol] 21 U/L Normal 14-59 [facility] ([place] Comment on above: Performed By: #### L IPID, VIDH, CMP, TSH, GFR #### [address] [address] AST [Catalytic activity/Vol] 12 U/L Normal 10-40 [facility] ([place] Comment on above: Performed By: #### L IPID, VIDH, CMP, TSH, GFR #### [address] [address] Bili Total 0.4 mg/dL Normal 0.2-1.0 [facility] ([place]) Comment on above: Result Comment: Use of this assay is not recommended for patients undergoing treatment with eltrombopag due to the potential for falsely elevated results. Performed By: #### L IPID, VIDH, CMP, TSH, GFR #### [address] [address] BUN/Creatinine Ratio 18 ratio Normal 7-27 [facility] ([place]) Comment on above: Performed By: #### L IPID, VIDH, CMP, TSH, GFR #### [address] [address] Calcium [Mass/Vol] 9.7 mg/dL Normal 8.4-10.2 [facility] ([place]) Comment on above: Performed By: #### L IPID, VIDH, CMP, TSH, GFR #### [address] [address] Chloride [Moles/Vol] 100 mmol/L Normal 98-107 [facility] ([place] Comment on above: Performed By: #### L IPID, VIDH, CMP, TSH, GFR #### [address] [address] CO2 [Moles/Vol] 30 mmol/L Normal 23-31 [facility] ([place] Comment on above: Performed By: #### L IPID, VIDH, CMP, TSH, GFR #### [address] [address] Creatinine [Mass/Vol] 0.62 mg/dL Normal 0.55-1.02 [facility] ([place]) Comment on above: Performed By: #### L IPID, VIDH, CMP, TSH, GFR #### [address] [address] Electrolyte Balance 7.0 mEq/L Normal 4.0-15.0 [facility] ([place] Comment on above: Performed By: #### L IPID, VIDH, CMP, TSH, GFR #### [address] [address] Globulin 2.6 G/dL Normal [facility] ([place] Comment on above: Performed By: #### L IPID, VIDH, CMP, TSH, GFR #### [address] [address] Glucose [Mass/Vol] 90 mg/dL Normal 83-110 [facility] ([place]) Comment on above: Performed By: #### L IPID, VIDH, CMP, TSH, GFR #### [address] [address] Potassium [Moles/Vol] 4.8 mmol/L Normal 3.5-5.1 [facility] ([place] Comment on above: Performed By: #### L IPID, VIDH, CMP, TSH, GFR #### [address] [address] Sodium [Moles/Vol] 137 mmol/L Normal 136-145 [facility] ([place]) Comment on above: Performed By: #### L IPID, VIDH, CMP, TSH, GFR #### [address] [address] Total Protein 6.4 G/dL Normal 6.4-8.2 [facility] ([place] Comment on above: Performed By: #### L IPID, VIDH, CMP, TSH, GFR #### [address] [address] Urea nitrogen [Mass/Vol] 11 mg/dL Normal 7-18 [facility] ([place] Comment on above: Performed By: #### L IPID, VIDH, CMP, TSH, GFR #### [address] [address] FT4on 12-16-2023 Free T4 [Mass/Vol] 1.72 ng/dL High 0.76-1.46 [facility] ([place]) Comment on above: Order Comment: Order ed by Discern Performed By: #### L IPID, VIDH, CMP, TSH, GFR #### [address] [address] LIPIDon 12-16-2023 Cholesterol [Mass/Vol] 211 mg/dL High 0-200 [facility] ([place]) Comment on above: Result Comment: Chol esterol Reference Interval: Less than 200 Desirable 200-239 Borderline high risk 240 and above High risk Performed By: #### L IPID, VIDH, CMP, TSH, GFR #### [address] [address] Cholesterol in HDL [Mass/Vol] 70 mg/dL High 40-60 [facility] ([place] Comment on above: Performed By: #### L IPID, VIDH, CMP, TSH, GFR #### [address] [address] Cholesterol in LDL [Mass/Vol] 132 mg/dL High 0-130 [facility] ([place] Comment on above: Performed By: #### L IPID, VIDH, CMP, TSH, GFR #### [address] [address] Triglyceride [Mass/Vol] 45 mg/dL Normal 0-150 [facility] ([place] Comment on above: Result Comment: Trig lyceride Reference Interval: Less than 150 Normal 150-199 Borderline high risk 200-499 High risk 500 or higher Very high risk Performed By: #### L IPID, VIDH, CMP, TSH, GFR #### [place] [address] TSHRon 12-16-2023 TSH Qn 0.24 m[IU]/L Low 0.36-3.74 [facility] ([place] Comment on above: Performed By: #### L IPID, VIDH, CMP, TSH, GFR #### [address] [address] VIDHon 12-16-2023 Vit. D 25-Hydroxy 72.7 ng/mL Normal [facility] ([place]) Comment on above: Result Comment: Inte rpretive Values Based on Total 25(OH) Vitamin D: Deficient <20 ng/mL Insufficient 20 - <30 ng/mL Sufficient 30-100 ng/mL Performed By: #### L IPID, VIDH, CMP, TSH, GFR #### [address] [address] No Panel Informationon 11-21 Culture Urine <10,000 cfu/ml. No Significant growth. Sensitivity not indicated. [facility] Work Phone: CT ABDOMEN/PELVIS W/CONTRAST on [...] 11/08/2023 3:25:32 PM Ordering Provider: LIZZETTE [facility]ES [facility] [place] XR ABDOMEN APon 11-03-2023 XR ABDOMEN AP [...] 11/03/2023 10:51:20 AM Ordering Provider: LIZZETTE SAL[facility] [place] BD BONE DENSITY DEXA AXIAL S Count includes the [facility] 10-13-2023 BD BONE DENSITY DEXA AXIAL SKELETON [...] 10/13/2023 12:23:18 PM Ordering Provider: BENITO Nunez [facility] ([place]) .Auto Diffon 10-04-2023 Basophil, Absolute 0.1 10 3/mcL Normal 0.0-0.2 [facility] ([place]) Comment on above: Performed By: #### L IPID, VIDH, CMP, TSH, GFR #### [address] [address] Basophils/100 WBC (Bld) 1.2 % Normal 0.0-2.5 [facility] ([place]) Comment on above: Performed By: #### L IPID, VIDH, CMP, TSH, GFR #### [address] [address] Eosinophil, Absolute 0.1 10 3/mcL Normal 0.0-0.4 [facility] ([place]) Comment on above: Performed By: #### L IPID, VIDH, CMP, TSH, GFR #### [address] [address] Eosinophils/100 WBC (Bld) 0.5 % Normal 0.0-7.0 [facility] ([place] Comment on above: Performed By: #### L IPID, VIDH, CMP, TSH, GFR #### [address] [address] Lymphocyte, Absolute 6.0 10 3/mcL High 0.8-3.9 [facility] ([place]) Comment on above: Performed By: #### L IPID, VIDH, CMP, TSH, GFR #### [address] [address] Lymphocytes/100 WBC (Bld) 58.6 % High 10.0-50.0 [facility] ([place]) Comment on above: Performed By: #### L IPID, VIDH, CMP, TSH, GFR #### [address] [address] Monocyte, Absolute 0.6 10 3/mcL Normal 0.2-1.0 [facility] ([place]) Comment on above: Performed By: #### L IPID, VIDH, CMP, TSH, GFR #### [address] [address] Monocytes/100 WBC (Bld) 6.1 % Normal 1.7-13.0 [facility] ([place]) Comment on above: Performed By: #### L IPID, VIDH, CMP, TSH, GFR #### [address] [address] Neutrophils/100 WBC (Bld) 33.6 % Low 37.0-80.0 [facility] ([place] Comment on above: Performed By: #### L IPID, VIDH, CMP, TSH, GFR #### [address] [address] .GFRon 10-04-2023 GFR 113 ml/min/1.73sqm Normal [facility] ([place]) Comment on above: Result Comment: GFR Population [...] L IPID, VIDH, CMP, TSH, GFR #### [address] [address] GFR Non- 93 ml/min/1.73sqm Normal [facility] ([place]) Comment on above: Result Comment: [...] L IPID, VIDH, CMP, TSH, GFR #### [place] [address] .MDWon 10-04-2023 Monocyte Distribution Width 20.45 High 0.00-20.00 [facility] ([place]) Comment on above: Result Comment: For adults in ED, MDW>20.0 may be associated with a higher risk of sepsis during the first 12hrs of hospital admission The predictive value of MDW for identifying sepsis in patients with hematological abnormalities has not been established Performed By: #### L IPID, VIDH, CMP, TSH, GFR #### [address] [address] .Manual Diffon 10-04-2023 Bands 1.0 % Normal 0.0-5.0 [facility] ([place]) Comment on above: Performed By: #### L IPID, VIDH, CMP, TSH, GFR #### [address] [address] Basophil %, Manual 0.0 % Normal 0.0-2.5 [facility] ([place]) Comment on above: Performed By: #### L IPID, VIDH, CMP, TSH, GFR #### [address] [address] Basophil, Abs Manual 0.0 10 3/mcL Normal 0.0-0.2 [facility] ([place]) Comment on above: Performed By: #### L IPID, VIDH, CMP, TSH, GFR #### [address] [address] Eosinophil %, Manual 0.0 % Normal 0.0-7.0 [facility] ([place] Comment on above: Performed By: #### L IPID, VIDH, CMP, TSH, GFR #### [address] [address] Eosinophil, Abs Manual 0.0 10 3/mcL Normal 0.0-0.4 [facility] ([place]) Comment on above: Performed By: #### L IPID, VIDH, CMP, TSH, GFR #### [address] [address] Lymphocyte %, Manual 63.0 % High 10.0-50.0 [facility] ([place]) Comment on above: Performed By: #### L IPID, VIDH, CMP, TSH, GFR #### [address] [address] Lymphocyte, Abs Manual 6.4 10 3/mcL High 0.8-3.9 [facility] ([place]) Comment on above: Performed By: #### L IPID, VIDH, CMP, TSH, GFR #### [address] [address] Monocyte %, Manual 3.0 % Normal 1.7-13.0 [facility] ([place]) Comment on above: Performed By: #### L IPID, VIDH, CMP, TSH, GFR #### [address] [address] Monocyte, Abs Manual 0.3 10 3/mcL Normal 0.2-1.0 [facility] ([place]) Comment on above: Performed By: #### L IPID, VIDH, CMP, TSH, GFR #### [address] [address] Neutrophil %, Manual 33.0 % Low 37.0-80.0 [facility] ([place]) Comment on above: Performed By: #### L IPID, VIDH, CMP, TSH, GFR #### [place] [address] Neutrophil, Abs Manual 3.4 10 3/mcL Normal 2.9-6.2 [facility] ([place]) Comment on above: Performed By: #### L IPID, VIDH, CMP, TSH, GFR #### [place] [address] Nucleated RBC 0.0 /100 WBC Normal [facility] ([place] Comment on above: Performed By: #### L IPID, VIDH, CMP, TSH, GFR #### [place] [address] .Morphon 10-04-2023 Platelet Estimate Normal Normal [facility]) Comment on above: Performed By: #### L IPID, VIDH, CMP, TSH, GFR #### [place] [address] .NEUABSon 10-04-2023 Neutrophil, Absolute 3.4 10 3/mcL Normal 2.9-6.2 [facility] ([place]) Comment on above: Performed By: #### L IPID, VIDH, CMP, TSH, GFR #### [place] [address] CBCon 10-04-2023 Erythrocyte distribution width (RBC) [Ratio] 14.6 % High 11.5-14.5 [facility] ([place]) Comment on above: Performed By: #### L IPID, VIDH, CMP, TSH, GFR #### [place] [address] Hematocrit (Bld) [Volume fraction] 34.9 % Low 37.0-47.0 [facility] ([place] Comment on above: Performed By: #### L IPID, VIDH, CMP, TSH, GFR #### [place] [address] Hgb 12.1 G/dL Normal 12.0-16.0 [facility] ([place]) Comment on above: Performed By: #### L IPID, VIDH, CMP, TSH, GFR #### [address] [address] MCH (RBC) [Entitic mass] 30.2 pg Normal 27.0-31.2 [facility] ([place]) Comment on above: Performed By: #### L IPID, VIDH, CMP, TSH, GFR #### [address] [address] MCHC 34.5 G/dL Normal 33.0-37.0 [facility] ([place] Comment on above: Performed By: #### L IPID, VIDH, CMP, TSH, GFR #### [address] [address] MCV (RBC) [Entitic vol] 87.5 fL Normal 80.0-94.0 [facility] ([place]) Comment on above: Performed By: #### L IPID, VIDH, CMP, TSH, GFR #### [place] [address] Platelet 260 10 3/mcL Normal 130-400 [facility] ([place]) Comment on above: Performed By: #### L IPID, VIDH, CMP, TSH, GFR #### [place] [address] Platelet mean volume (Bld) [Entitic vol] 8.0 fL Normal 7.4-10.4 [facility] ([place]) Comment on above: Performed By: #### L IPID, VIDH, CMP, TSH, GFR #### [place] [id number] RBC 3.99 10 6/mcL Low 4.20-5.40 [facility] ([place]) Comment on above: Performed By: #### L IPID, VIDH, CMP, TSH, GFR #### [place] [id number] WBC 10.2 10 3/mcL Normal 4.6-10.8 [facility] ([place]) Comment on above: Performed By: #### L IPID, VIDH, CMP, TSH, GFR #### [address] [address] CMPon 10-04-2023 Albumin Level 4.0 G/dL Normal 3.4-4.8 [facility] ([place]) Comment on above: Performed By: #### L IPID, VIDH, CMP, TSH, GFR #### [address] [address] Albumin/Globulin [Mass ratio] 1.4 {ratio} Normal 1.1-2.5 [facility] ([place]) Comment on above: Performed By: #### L IPID, VIDH, CMP, TSH, GFR #### [address] [address] ALP [Catalytic activity/Vol] 88 U/L Normal 40-135 [facility] ([place] Comment on above: Performed By: #### L IPID, VIDH, CMP, TSH, GFR #### [address] [address] ALT [Catalytic activity/Vol] 25 U/L Normal 14-59 [facility] ([place]) Comment on above: Performed By: #### L IPID, VIDH, CMP, TSH, GFR #### [address] [address] AST [Catalytic activity/Vol] 21 U/L Normal 10-40 [facility] ([place] Comment on above: Performed By: #### L IPID, VIDH, CMP, TSH, GFR #### [address] [address] Bili Total 0.5 mg/dL Normal 0.2-1.0 [facility] ([place]) Comment on above: Result Comment: Use of this assay is not recommended for patients undergoing treatment with eltrombopag due to the potential for falsely elevated results. Performed By: #### L IPID, VIDH, CMP, TSH, GFR #### [address] [address] BUN/Creatinine Ratio 20 ratio Normal 7-27 [facility] ([place]) Comment on above: Performed By: #### L IPID, VIDH, CMP, TSH, GFR #### [address] [address] Calcium [Mass/Vol] 9.2 mg/dL Normal 8.4-10.2 [facility] ([place]) Comment on above: Performed By: #### L IPID, VIDH, CMP, TSH, GFR #### [address] [address] Chloride [Moles/Vol] 98 mmol/L Normal 98-107 [facility] ([place]) Comment on above: Performed By: #### L IPID, VIDH, CMP, TSH, GFR #### [place] [address] CO2 [Moles/Vol] 32 mmol/L High 23-31 [facility] ([place]) Comment on above: Performed By: #### L IPID, VIDH, CMP, TSH, GFR #### [place] [address] Creatinine [Mass/Vol] 0.61 mg/dL Normal 0.55-1.02 [facility] ([place]) Comment on above: Performed By: #### L IPID, VIDH, CMP, TSH, GFR #### [address] [address] Electrolyte Balance 7.0 mEq/L Normal 4.0-15.0 [facility] ([place]) Comment on above: Performed By: #### L IPID, VIDH, CMP, TSH, GFR #### [address] [address] Globulin 2.9 G/dL Normal [facility] ([place]) Comment on above: Performed By: #### L IPID, VIDH, CMP, TSH, GFR #### [place] [id number] Glucose [Mass/Vol] 85 mg/dL Normal 83-110 [facility] ([place]) Comment on above: Performed By: #### L IPID, VIDH, CMP, TSH, GFR #### [place] [address] Potassium [Moles/Vol] 4.0 mmol/L Normal 3.5-5.1 [facility] ([place]) Comment on above: Performed By: #### L IPID, VIDH, CMP, TSH, GFR #### [place] [address] [place], [place] [address] Sodium [Moles/Vol] 137 mmol/L Normal 136-145 [facility] ([place]) Comment on above: Performed By: #### L IPID, VIDH, CMP, TSH, GFR #### [address] [address] Total Protein 6.9 G/dL Normal 6.4-8.2 [facility] ([place]) Comment on above: Performed By: #### L IPID, VIDH, CMP, TSH, GFR #### [place] [id number] [place], [place] [address] Urea nitrogen [Mass/Vol] 12 mg/dL Normal 7-18 [facility] ([place]) Comment on above: Performed By: #### L IPID, VIDH, CMP, TSH, GFR #### [address] [address] [address] ABD/PELVIS W/ IV CONTRAST ONLYon 10-04-2023 [...] PM Ordering Provider: LEONARDO Nunez [facility] ([place]) LABORATORYOrdered By: SYSTEM SYSTEM on 10-04-2023 Albumin [...] 10-04-2023 Lipase Level 25 U/L Normal 16-77 [facility] ([place]) Comment on above: Performed By: #### L IPID, VIDH, CMP, TSH, GFR #### [address] [address] UAon 10-04-2023 Color (U) Yellow Normal [facility] ([place] Comment on above: Performed By: #### U A #### [address] [address] Glucose (U) [Mass/Vol] Negative Normal Negative [facility] ([place]) Comment on above: Performed By: #### U A #### [address] [address] Ketones Ql (U) Negative Normal Negative [facility] ([place] Comment on above: Performed By: #### U A #### [address] [address] UA Appear Clear Normal Clear [facility] ([place] Comment on above: Performed By: #### U A #### [address] [address] UA Blood Trace Abnormal Negative [facility] ([place]) Comment on above: Performed By: #### U A #### [address] [address] UA Leuk Est Negative Normal Negative [facility] ([place] Comment on above: Performed By: #### U A #### [address] [address] UA Nitrite Negative Normal Negative [facility] ([place] Comment on above: Performed By: #### U A #### [address] [address] UA pH 7.0 Normal 5.0 - 8.0 [facility] ([place]) Comment on above: Performed By: #### U A #### [address] [address] UA Protein Negative Normal Negative [facility] ([place] Comment on above: Performed By: #### U A #### [place] [id number] UA Spec Grav 1.015 Normal 1.015-1.02 5 [facility] ([place] Comment on above: Performed By: #### U A #### [address] [address] UA Specimen Type Clean Catch Normal [facility] ([place] Comment on above: Performed By: #### U A #### [address] [address] UA Urobilinogen 0.2 E.U./dL Normal 0.2-1.0 [facility] ([place] Comment on above: Performed By: #### U A #### [address] [address] Urobilinogen (U) [Mass/Vol] Negative Normal Negative [facility] ([place]) Comment on above: Performed By: #### U A #### [address] [address] .GFRon 09-28-2023 GFR 92 ml/min/1.73sqm Normal [facility] ([place]) Comment on above: Result Comment: GFR Population [...] L IPID, VIDH, CMP, TSH, GFR #### [address] [address] GFR Non- 76 ml/min/1.73sqm Normal [facility] ([place]) Comment on above: Result Comment: GFR Population [...] L IPID, VIDH, CMP, TSH, GFR #### [address] [address] BMPon 09-28-2023 BUN/Creatinine Ratio 14 ratio Normal 7-27 [facility] ([place]) Comment on above: Performed By: #### B MP, TSH, GFR #### [address] [address] Calcium [Mass/Vol] 9.2 mg/dL Normal 8.4-10.2 [facility] ([place]) Comment on above: Performed By: #### B MP, TSH, GFR #### [address] [address] Chloride [Moles/Vol] 101 mmol/L Normal 98-107 [facility] ([place]) Comment on above: Performed By: #### B MP, TSH, GFR #### [address] [address] CO2 [Moles/Vol] 30 mmol/L Normal 23-31 [facility] ([place]) Comment on above: Performed By: #### B MP, TSH, GFR #### [address] [address] Creatinine [Mass/Vol] 0.73 mg/dL Normal 0.55-1.02 [facility] ([place]) Comment on above: Performed By: #### B MP, TSH, GFR #### [address] [address] Electrolyte Balance 6.0 mEq/L Normal 4.0-15.0 [facility] ([place]) Comment on above: Performed By: #### B MP, TSH, GFR #### [address] [address] Glucose [Mass/Vol] 91 mg/dL Normal 83-110 [facility] ([place]) Comment on above: Performed By: #### B MP, TSH, GFR #### [address] [address] Potassium [Moles/Vol] 4.8 mmol/L Normal 3.5-5.1 [facility] ([place]) Comment on above: Performed By: #### B MP, TSH, GFR #### [address] [address] Sodium [Moles/Vol] 137 mmol/L Normal 136-145 [facility] ([place]) Comment on above: Performed By: #### B MP, TSH, GFR #### [address] [address] Urea nitrogen [Mass/Vol] 10 mg/dL Normal 7-18 [facility] ([place]) Comment on above: Performed By: #### B MP, TSH, GFR #### [facility] [address] [place], [place] [address] TSHon 09-28-2023 TSH Qn 0.45 m[IU]/L Normal 0.36-3.74 [facility] ([place]) Comment on above: Performed By: #### B MP, TSH, GFR #### [facility] [address] [place], [place] [address] CT ABDOMEN/PELVIS W/O CONTRA STon 09-27-2023 CT [...] Date: 09/27/2023 10:30:24 AM Ordering Provider: LEONARDO JON[facility] ([place]) XR HIP 2-3 VIEWS LEFTon XR HIP 2-3 VIEWS LEFT ORIGINAL EXAMINATION: 2 XRAY VIEWS OF THE LEFT HIP 09/09/2023 3:31 pm COMPARISON: None. HISTORY: ORDERING SYSTEM PROVIDED HISTORY: Reason for Exam: L hip/lower back pain FINDINGS: No acute fracture or dislocation is identified. Bepm-gz-[id number] degenerative changes seen of the left hip. [...] 09/10/2023 3:52:33 PM Ordering Provider: GALE MARROQUIN [facility] ([place]) XR PELVIS 1 OR 2 VIEWSon XR [...] 09/10/2023 3:50:59 PM Ordering Provider: GALE MARROQUIN [facility] ([place]) LABORATORYOrdered By: Anna Felix on 08-03-2023 Albumin DL <= 20 mg/L (U) [Mass/Vol] mcg/dL Invalid Interpretation Code AO ADM SS Albumin/Creatinine DL <= 20 mg/L (U) [Mass ratio] unable to calc Invalid Interpretation Code 0 - 30 AO Chemistry S Creatinine (U) [Mass/Vol] mg/dL Low 28.0 - 117.0 mg/dL AO ADM SS MALBRon 08-03-2023 U Creatinine <13.0 Low 28.0-117.0 [facility] ([place]) Comment on above: Performed By: #### M ALBR #### [address] [address] U Microalb <130 Normal [facility] ([place]) Comment on above: Performed By: #### M ALBR #### [address] [address] U Ratio Alb/Cre unable to calc Normal 0-30 [facility] ([place]) Comment on above: Performed By: #### M ALBR #### [address] [address] .GFRon 05-13-2023 GFR Non- 63 ml/min/1.73sqm [facility] ([place]) Comment on above: Result Comment: GFR Population [...] L IPID, VIDH, CMP, TSH, GFR #### [address] [address] GFR 76 ml/min/1.73sqm Normal [facility] ([place]) Comment on above: Result Comment: GFR Population [...] L IPID, VIDH, CMP, TSH, GFR #### [address] [address] CMPon 05-13-2023 Albumin Level 3.4 G/dL Normal 3.4-4.8 [facility] ([place]) Comment on above: Performed By: #### L IPID, VIDH, CMP, TSH, GFR #### [address] [address] Albumin/Globulin [Mass ratio] 1.3 {ratio} Normal 1.1-2.5 [facility] ([place]) Comment on above: Performed By: #### L IPID, VIDH, CMP, TSH, GFR #### [address] [address] ALP [Catalytic activity/Vol] 66 U/L Normal 40-135 [facility] ([place]) Comment on above: Performed By: #### L IPID, VIDH, CMP, TSH, GFR #### [address] [address] ALT [Catalytic activity/Vol] 21 U/L Normal 14-59 [facility] ([place]) Comment on above: Performed By: #### L IPID, VIDH, CMP, TSH, GFR #### [address] [address] AST [Catalytic activity/Vol] 23 U/L Normal 10-40 [facility] ([place]) Comment on above: Performed By: #### L IPID, VIDH, CMP, TSH, GFR #### [address] [address] Bili Total 0.4 mg/dL Normal 0.2-1.0 [facility] ([place]) Comment on above: Result Comment: Use of this assay is not recommended for patients undergoing treatment with eltrombopag due to the potential for falsely elevated results. Performed By: #### L IPID, VIDH, CMP, TSH, GFR #### [address] [address] BUN/Creatinine Ratio 22 ratio Normal 7-27 [facility] ([place]) Comment on above: Performed By: #### L IPID, VIDH, CMP, TSH, GFR #### [address] [address] Calcium [Mass/Vol] 8.9 mg/dL Normal 8.4-10.2 [facility] ([place]) Comment on above: Performed By: #### L IPID, VIDH, CMP, TSH, GFR #### [address] [address] Chloride [Moles/Vol] 99 mmol/L Normal 98-107 [facility] ([place]) Comment on above: Performed By: #### L IPID, VIDH, CMP, TSH, GFR #### [address] [address] CO2 [Moles/Vol] 26 mmol/L Normal 23-31 [facility] ([place]) Comment on above: Performed By: #### L IPID, VIDH, CMP, TSH, GFR #### [address] [address] Creatinine [Mass/Vol] 0.86 mg/dL Normal 0.55-1.02 [facility] ([place]) Comment on above: Performed By: #### L IPID, VIDH, CMP, TSH, GFR #### [address] [address] Electrolyte Balance 8.0 mEq/L Normal 4.0-15.0 [facility] ([place]) Comment on above: Performed By: #### L IPID, VIDH, CMP, TSH, GFR #### [address] [address] Globulin 2.7 G/dL Normal [facility] ([place]) Comment on above: Performed By: #### L IPID, VIDH, CMP, TSH, GFR #### [address] [address] Glucose [Mass/Vol] 104 mg/dL Normal 83-110 [facility] ([place]) Comment on above: Performed By: #### L IPID, VIDH, CMP, TSH, GFR #### [address] [address] Potassium [Moles/Vol] 4.4 mmol/L Normal 3.5-5.1 [facility] ([place]) Comment on above: Performed By: #### L IPID, VIDH, CMP, TSH, GFR #### [address] [address] Sodium [Moles/Vol] 133 mmol/L Low 136-145 [facility] ([place]) Comment on above: Performed By: #### L IPID, VIDH, CMP, TSH, GFR #### [address] [address] Total Protein 6.1 G/dL Low 6.4-8.2 [facility] ([place]) Comment on above: Performed By: #### L IPID, VIDH, CMP, TSH, GFR #### [address] [address] Urea nitrogen [Mass/Vol] 19 mg/dL High 7-18 [facility] ([place]) Comment on above: Performed By: #### L IPID, VIDH, CMP, TSH, GFR #### [place] [address] [place], [place] [address] LABORATORYOrdered By: SYSTEM SYSTEM on 05-13-2023 25-hydroxyvitamin [...] 05-13-2023 Cholesterol [Mass/Vol] 217 mg/dL High 0-200 [facility] ([place]) Comment on above: Result Comment: Chol esterol Reference Interval: Less than 200 Desirable 200-239 Borderline high risk 240 and above High risk Performed By: #### L IPID, VIDH, CMP, TSH, GFR #### [address] [address] Cholesterol in HDL [Mass/Vol] 41 mg/dL Normal 40-60 [facility] ([place]) Comment on above: Performed By: #### L IPID, VIDH, CMP, TSH, GFR #### [address] [address] Cholesterol in LDL [Mass/Vol] 156 mg/dL High 0-130 [facility] ([place]) Comment on above: Performed By: #### L IPID, VIDH, CMP, TSH, GFR #### [address] [address] Triglyceride [Mass/Vol] 102 mg/dL Normal 0-150 [facility] ([place]) Comment on above: Result Comment: Trig lyceride Reference Interval: Less than 150 Normal 150-199 Borderline high risk 200-499 High risk 500 or higher Very high risk Performed By: #### L IPID, VIDH, CMP, TSH, GFR #### [address] [address] TSHon 05-13-2023 TSH Qn 3.84 m[IU]/L High 0.36-3.74 [facility] ([place]) Comment on above: Performed By: #### L IPID, VIDH, CMP, TSH, GFR #### [address] [address] VIDHon 05-13-2023 Vit. D 25-Hydroxy 69.7 ng/mL Normal [facility] ([place]) Comment on above: Result Comment: Inte rpretive Values Based on Total 25(OH) Vitamin D: Deficient <20 ng/mL Insufficient 20 - <30 ng/mL Sufficient 30-100 ng/mL Performed By: #### L IPID, VIDH, CMP, TSH, GFR #### [address] [address] .GFRon 05-08-2023 GFR 76 ml/min/1.73sqm Normal [facility] ([place]) Comment on above: Result Comment: [...] L IPID, VIDH, CMP, TSH, GFR #### [address] [address] GFR Non- 63 ml/min/1.73sqm Normal [facility] ([place]) Comment on above: Result Comment: [...] L IPID, VIDH, CMP, TSH, GFR #### [place] [address] .MDWon 05-08-2023 Monocyte Distribution Width 34.01 High 0.00-20.00 [facility] ([place]) Comment on above: Result Comment: The predictive value of MDW for identifying sepsis in patients with hematological abnormalities has not been established Performed By: #### L IPID, VIDH, CMP, TSH, GFR #### [place] [address] .Manual Diffon 05-08-2023 Basophil %, Manual 1.0 % Normal 0.0-2.5 [facility] ([place]) Comment on above: Performed By: #### L IPID, VIDH, CMP, TSH, GFR #### [place] [address] Basophil, Abs Manual 0.4 10 3/mcL High 0.0-0.2 [facility] ([place]) Comment on above: Performed By: #### L IPID, VIDH, CMP, TSH, GFR #### [place] [address] Eosinophil %, Manual 0.0 % Normal 0.0-7.0 [facility] ([place]) Comment on above: Performed By: #### L IPID, VIDH, CMP, TSH, GFR #### [place] [address] Eosinophil, Abs Manual 0.0 10 3/mcL Normal 0.0-0.4 [facility] ([place]) Comment on above: Performed By: #### L IPID, VIDH, CMP, TSH, GFR #### [address] [address] Lymphocyte %, Manual 92.0 % High 10.0-50.0 [facility] ([place]) Comment on above: Performed By: #### L IPID, VIDH, CMP, TSH, GFR #### [address] [address] Lymphocyte, Abs Manual 35.8 10 3/mcL High 0.8-3.9 [facility] ([place]) Comment on above: Performed By: #### L IPID, VIDH, CMP, TSH, GFR #### [address] [address] Monocyte %, Manual 1.0 % Low 1.7-13.0 [facility] ([place]) Comment on above: Performed By: #### L IPID, VIDH, CMP, TSH, GFR #### [address] [address] Monocyte, Abs Manual 0.4 10 3/mcL Normal 0.2-1.0 [facility] ([place]) Comment on above: Performed By: #### L IPID, VIDH, CMP, TSH, GFR #### [address] [address] Neutrophil %, Manual 6.0 % Low 37.0-80.0 [facility] ([place]) Comment on above: Performed By: #### L IPID, VIDH, CMP, TSH, GFR #### [address] [address] Neutrophil, Abs Manual 2.3 10 3/mcL Low 2.9-6.2 [facility] ([place]) Comment on above: Performed By: #### L IPID, VIDH, CMP, TSH, GFR #### [address] [address] Nucleated RBC 0.0 /100 WBC Normal [facility] ([place]) Comment on above: Performed By: #### L IPID, VIDH, CMP, TSH, GFR #### [place] [address] .Morphon 05-08-2023 Platelet Estimate Normal Normal [facility]) Comment on above: Performed By: #### L IPID, VIDH, CMP, TSH, GFR #### [place] [address] CBCon 05-08-2023 Erythrocyte distribution width (RBC) [Ratio] 15.7 % High 11.5-14.5 [facility] ([place]) Comment on above: Performed By: #### L IPID, VIDH, CMP, TSH, GFR #### [place] [address] Hematocrit (Bld) [Volume fraction] 32.2 % Low 37.0-47.0 [facility] ([place]) Comment on above: Performed By: #### L IPID, VIDH, CMP, TSH, GFR #### [place] [address] Hgb 10.5 G/dL Low 12.0-16.0 [facility] ([place]) Comment on above: Performed By: #### L IPID, VIDH, CMP, TSH, GFR #### [place] [address] MCH (RBC) [Entitic mass] 29.9 pg Normal 27.0-31.2 [facility] ([place]) Comment on above: Performed By: #### L IPID, VIDH, CMP, TSH, GFR #### [place] [address] MCHC 32.6 G/dL Low 33.0-37.0 [facility] ([place]) Comment on above: Performed By: #### L IPID, VIDH, CMP, TSH, GFR #### [place] [address] MCV (RBC) [Entitic vol] 91.6 fL Normal 80.0-94.0 [facility] ([place]) Comment on above: Performed By: #### L IPID, VIDH, CMP, TSH, GFR #### [address] [address] Platelet 333 10 3/mcL Normal 130-400 [facility] ([place]) Comment on above: Performed By: #### L IPID, VIDH, CMP, TSH, GFR #### [address] [address] Platelet mean volume (Bld) [Entitic vol] 7.5 fL Normal 7.4-10.4 [facility] ([place]) Comment on above: Performed By: #### L IPID, VIDH, CMP, TSH, GFR #### [address] [address] RBC 3.52 10 6/mcL Low 4.20-5.40 [facility] ([place]) Comment on above: Performed By: #### L IPID, VIDH, CMP, TSH, GFR #### [address] [address] WBC 38.9 10 3/mcL High 4.6-10.8 [facility] ([place]) Comment on above: Performed By: #### L IPID, VIDH, CMP, TSH, GFR #### [address] [address] CMPon 05-08-2023 Albumin Level 3.4 G/dL Normal 3.4-4.8 [facility] ([place]) Comment on above: Performed By: #### L IPID, VIDH, CMP, TSH, GFR #### [address] [address] Albumin/Globulin [Mass ratio] 1.1 {ratio} Normal 1.1-2.5 [facility] ([place]) Comment on above: Performed By: #### L IPID, VIDH, CMP, TSH, GFR #### [address] [address] ALP [Catalytic activity/Vol] 79 U/L Normal 40-135 [facility] ([place]) Comment on above: Performed By: #### L IPID, VIDH, CMP, TSH, GFR #### [address] [address] ALT [Catalytic activity/Vol] 21 U/L Normal 14-59 [facility] ([place]) Comment on above: Performed By: #### L IPID, VIDH, CMP, TSH, GFR #### [address] [address] AST [Catalytic activity/Vol] 17 U/L Normal 10-40 [facility] ([place]) Comment on above: Performed By: #### L IPID, VIDH, CMP, TSH, GFR #### [address] [address] Bili Total 0.3 mg/dL Normal 0.2-1.0 [facility] ([place]) Comment on above: Result Comment: Use of this assay is not recommended for patients undergoing treatment with eltrombopag due to the potential for falsely elevated results. Performed By: #### L IPID, VIDH, CMP, TSH, GFR #### [place] [address] BUN/Creatinine Ratio 16 ratio Normal 7-27 [facility] ([place]) Comment on above: Performed By: #### L IPID, VIDH, CMP, TSH, GFR #### [address] [address] Calcium [Mass/Vol] 8.9 mg/dL Normal 8.4-10.2 [facility] ([place]) Comment on above: Performed By: #### L IPID, VIDH, CMP, TSH, GFR #### [address] [address] Chloride [Moles/Vol] 98 mmol/L Normal 98-107 [facility] ([place]) Comment on above: Performed By: #### L IPID, VIDH, CMP, TSH, GFR #### [address] [address] CO2 [Moles/Vol] 25 mmol/L Normal 23-31 [facility] ([place]) Comment on above: Performed By: #### L IPID, VIDH, CMP, TSH, GFR #### [address] [address] Creatinine [Mass/Vol] 0.86 mg/dL Normal 0.55-1.02 [facility] ([place]) Comment on above: Performed By: #### L IPID, VIDH, CMP, TSH, GFR #### [address] [address] Electrolyte Balance 9.0 mEq/L Normal 4.0-15.0 [facility] ([place]) Comment on above: Performed By: #### L IPID, VIDH, CMP, TSH, GFR #### [address] [address] Globulin 3.0 G/dL Normal [facility] ([place]) Comment on above: Performed By: #### L IPID, VIDH, CMP, TSH, GFR #### [address] [address] Glucose [Mass/Vol] 141 mg/dL High 83-110 [facility] ([place]) Comment on above: Performed By: #### L IPID, VIDH, CMP, TSH, GFR #### [address] [address] Potassium [Moles/Vol] 3.8 mmol/L Normal 3.5-5.1 [facility] ([place]) Comment on above: Performed By: #### L IPID, VIDH, CMP, TSH, GFR #### [address] [address] Sodium [Moles/Vol] 132 mmol/L Low 136-145 [facility] ([place]) Comment on above: Performed By: #### L IPID, VIDH, CMP, TSH, GFR #### [address] [address] Total Protein 6.4 G/dL Normal 6.4-8.2 [facility] ([place]) Comment on above: Performed By: #### L IPID, VIDH, CMP, TSH, GFR #### [address] [address] Urea nitrogen [Mass/Vol] 14 mg/dL Normal 7-18 [facility] Comment on above: Performed By: #### L IPID, VIDH, CMP, TSH, GFR #### [place] [address] [place], [place] [address] CT ANGIOGRAPHY CHEST W/CONTR Ilsa 05-08-2023 CT [...] Reason for Exam: elevated d dimer FINDINGS: Toad-[id number] degenerative changes are noted in the spine. [...] 05/08/2023 12:45:07 PM Ordering Provider: CHANTAL Nunez [facility]) DIMERon 05-08-2023 D-Dimer 469 ng/mL D-DU High 0-230 [facility]) Comment on above: Result Comment: Resu lts [...] L IPID, VIDH, CMP, TSH, GFR #### [place] [place] [address] LABORATORYOrdered By: SYSTEM SYSTEM on 05-08-2023 Troponin [...] 05-08-2023 Magnesium [Mass/Vol] 1.9 mg/dL Normal 1.8-2.4 [facility] ([place]) Comment on above: Performed By: #### L IPID, VIDH, CMP, TSH, GFR #### [place] [address] PBNPon 05-08-2023 Natriuretic peptide B (Bld) [Mass/Vol] 608 pg/mL High 0-450 [facility] ([place]) Comment on above: Result Comment: NT-p roBNP results of less than 300 pg/mL effectively rules out acute congestive heart failure with 99% negative predictive value. Performed By: #### L IPID, VIDH, CMP, TSH, GFR #### [place] [id number] TROPHSon 05-08-2023 Troponin I High Sensitivity 5.5 ng/L Normal 0.0-51.4 [facility] ([place]) Comment on above: Performed By: #### T [facility] #### [place] [address] Troponin I High Sensitivity 5.6 ng/L Normal 0.0-51.4 [facility] ([place]) Comment on above: Performed By: #### L IPID, VIDH, CMP, TSH, GFR #### [place] [address] XR CHEST 1 VIEWon 05-08-2023 XR CHEST [...] 05/08/2023 11:11:05 AM Ordering Provider: CHANTAL [facility]API[facility] ([place]) No Panel Informationon 05-05 Culture Urine 50,000 - 100,000 cfu /ml Mixed growth consistent with normal urogenital giles. [facility] Work Phone: LABORATORYOrdered By: Steff Mccarthy [...] definite cause of disease. Laboratories within the [place] and its territories are required to report all positive results to the appropriate public health authorities.Detection of analyte target(s) does not imply that the corresponding virus(es) are infectious or are the causative agents for clinical symptoms.There is a risk of false positive values resulting from cross-contamination by target organisms, their nucleic acids or amplified product, or from non-specific signals in the assay.[employer] SARS-CoV-2 Assay is a Real-Time reverse-transcriptase polymerase [...] (05/12/22 9:38 AM) Invalid Interpretation Code Non-Reacti zahira ADM SS HCV Ab IA Ql Nonreactive: [...] Probable Contamination. Suggest recollection if clinically indicated. [facility] Work Phone: LABORATORYOrdered By: Steff Mccarthy [...] HMSPatient IDon 10-05-2017 OOP Invalid Interpretation Code [facility] Work Phone: Clinical Summary: Scanned Hi story Summaryon 10-05-2017 Data entered by patient exercise frequency 2 days per week Invalid Interpretation Code [facility] Work Phone: Data entered by patient exercise type walking Invalid Interpretation Code [facility] Work Phone: data entered by patient, alcohol (ethanol or ETOH) use No Invalid Interpretation Code [facility] Work Phone: data entered by patient, drug (of abuse) use No Invalid Interpretation Code [facility] Work Phone: data entered by patient, Employer Name Retired Invalid Interpretation Code [facility] Work Phone: data entered by patient, exercise history Yes Invalid Interpretation Code [facility] Work Phone: Data entered by patient, history of past surgeries AppendectomyTonsillectomyHyste rectomy Invalid Interpretation Code [facility] Work Phone: data entered by patient, past medical history High blood pressureMitral valve prolapseOsteopenia Invalid Interpretation Code [facility] Work Phone: data entered by patient, social history, current smoker never smoker Invalid Interpretation Code [facility] Work Phone: data entered by patient, social history, marital status Invalid Interpretation Code [facility] Work Phone: father of patient is alive or Invalid Interpretation Code [facility] Work Phone: Housing Type: apartment, house, longterm, trailer, none House Invalid Interpretation Code [facility] Work Phone: housing unit size (asthma environmental history, housing) (from single family to don't know) 2 Floors Invalid Interpretation Code [facility] Work Phone: mother of patient is alive or Invalid Interpretation Code [facility] Work Phone: Number of dependent children No Invalid Interpretation Code [facility] Work Phone: Clinical Summary: Marlyn Dick Summaryon 10-05-2017 endocrine ROS Denies Invalid Interpretation Code [facility] Work Phone: Gastrointestional review of systems, comment Hemorrhoids Invalid Interpretation Code [facility] Work Phone: genitourinary review of systems, E&M Denies Invalid Interpretation Code [facility] Work Phone: Lymphocytes Denies Invalid Interpretation Code [facility] Work Phone: Review of Systems Neurologic comment Numbness,Tingling,Loss Of Balance Invalid Interpretation Code [facility] Work Phone: ROS cardiovascular E&M Denies Invalid Interpretation Code [facility] Work Phone: ROS ENT E&M Denies Invalid Interpretation Code [facility] Work Phone: ROS gastrointestinal E&M Complains Invalid Interpretation Code [facility] Work Phone: ROS general E&M Denies Invalid Interpretation Code [facility] Work Phone: ROS musculoskeletal E&M Denies Invalid Interpretation Code [facility] Work Phone: ROS neurological E&M Complains Invalid Interpretation Code [facility] Work Phone: ROS Psych comment Difficulty Sleeping Invalid Interpretation Code [facility] Work Phone: ROS psychiatric E&M Complains Invalid Interpretation Code [facility] Work Phone: ROS pulmonary E&M Denies Invalid Interpretation Code [facility] Work Phone: ROS skin E&M Denies Invalid Interpretation Code [facility] Work Phone: Office Visit: New - 1st visi t with practice, Rm: 3on 10-05-2017 NEGATED: Highlighted rowDocumentation of current medications (procedure) Done Invalid Interpretation Code [facility] Work Phone: NEGATED: Highlighted rowTobacco smoking status NHIS Tobacco smoking status NHIS Invalid Interpretation Code [facility] Work Phone: Vital Signs Date Time Vital Sign Value Performing Clinician Facility 10-04-2023 13:09-0400 Blood Pressure Location LEONARDO REICHFIELD DO [facility] 10-04-2023 13:09-0400 Blood Pressure Method LEONARDO REICHFIELD DO [facility] 10-04-2023 13:09-0400 Diastolic Blood Pressure Non-Invasive 68 mm[Hg] LEONARDO REICHFIELD DO [facility] 10-04-2023 13:09-0400 Heart rate 82 /min LEONARDO REICHFIELD DO [facility] 10-04-2023 13:09-0400 Respiratory rate 18 /min LEONARDO REICHFIELD DO [facility] 10-04-2023 13:09-0400 Systolic Blood Pressure Non-Invasive 143 mm[Hg] LEONARDO REICHFIELD DO [facility] 10-04-2023 10:15-0400 Blood Pressure Location LEONARDO REICHFIELD DO [facility] 10-04-2023 10:15-0400 Blood Pressure Method LEONARDO REICHFIELD DO [facility] 10-04-2023 10:15-0400 Body temperature 98.06 [degF] LEONARDO REICHFIELD DO [facility] 10-04-2023 10:15-0400 Diastolic Blood Pressure Non-Invasive 67 mm[Hg] [facility] 10-04-2023 10:15-0400 Heart rate 84 /min [facility] DO [facility] 10-04-2023 10:15-0400 Respiratory rate 18 /min [facility] DO [facility] 10-04-2023 10:15-0400 Systolic Blood Pressure Non-Invasive 153 mm[Hg] [facility] DO [facility] 09-21-2023 09:46-0400 Blood Pressure Location GOKUL REYES MD [facility] 09-21-2023 09:46-0400 Blood Pressure Method GOKUL REYES MD [facility] 09-21-2023 09:46-0400 Body temperature 98.24 [degF] GOKUL REYES MD [facility] 09-21-2023 09:46-0400 Diastolic Blood Pressure Non-Invasive 62 mm[Hg] GOKUL REYES MD [facility] 09-21-2023 09:46-0400 Heart rate 72 /min GOKUL REYES MD [facility] 09-21-2023 09:46-0400 Respiratory rate 18 /min GOKUL REYES MD [facility] 09-21-2023 09:46-0400 Systolic Blood Pressure Non-Invasive 152 mm[Hg] GOKUL REYES MD [facility] 05-08-2023 13:30-0500 Diastolic Blood Pressure Non-Invasive 75 mm[Hg] DR CHANTAL ZAPIEN MD [facility] 05-08-2023 13:30-0500 Heart rate 81 /min DR CHANTAL ZAPIEN MD [facility] 05-08-2023 13:30-0500 Respiratory rate 14 /min DR CHANTAL ZAPIEN MD [facility] 05-08-2023 13:30-0500 Systolic Blood Pressure Non-Invasive 177 mm[Hg] DR CHANTAL ZAPIEN MD [facility] 05-08-2023 12:42-0500 Diastolic Blood Pressure Non-Invasive 77 mm[Hg] DR CHANTAL ZAPIEN MD [facility] 05-08-2023 12:42-0500 Heart rate 91 /min DR CHANTAL ZAPIEN MD [facility] 05-08-2023 12:42-0500 Systolic Blood Pressure Non-Invasive 177 mm[Hg] DR CHANTAL ZAPIEN MD [facility] 05-08-2023 10:45-0500 Diastolic Blood Pressure Non-Invasive 64 mm[Hg] DR CHANTAL ZAPIEN MD [facility] 05-08-2023 10:45-0500 Heart rate 77 /min DR CHANTAL ZAPIEN MD [facility] 05-08-2023 10:45-0500 Systolic Blood Pressure Non-Invasive 134 mm[Hg] DR CHANTAL ZAPIEN MD [facility] 05-08-2023 10:15-0500 Heart rate 77 /min DR CHANTAL ZAPIEN MD [facility] 05-08-2023 09:06-0500 Body temperature 97.7 [degF] DR CHANTAL ZAPIEN MD [facility] 05-08-2023 09:06-0500 Body weight 59.[address] CHANTAL ZAPIEN MD [facility] 05-08-2023 09:06-0500 Respiratory rate 22 /min DR CHANTAL ZAPIEN MD [facility] NEGATED: Highlighted [id number] 11:06-0400 BMI (Body Mass Index) 24.12 kg/m2 Sophie Winklestine INVENTORY SPECIALIST [facility] Work Phone: NEGATED: Highlighted [id number] 11:06-0400 BP Diastolic 85 mm[Hg] Sophie Winklestine INVENTORY SPECIALIST [facility] Work Phone: NEGATED: Highlighted [id number] 11:06-0400 BP Diastolic 83 mm[Hg] Sophie Winklestine INVENTORY SPECIALIST [facility] Work Phone: NEGATED: Highlighted [id number] 11:06-0400 BP Systolic 152 mm[Hg] Sophie Winklestine INVENTORY SPECIALIST [facility] Work Phone: NEGATED: Highlighted [id number] 11:06-0400 BP Systolic 169 mm[Hg] Sohpie Winklestine INVENTORY SPECIALIST [facility] Work Phone: NEGATED: Highlighted [id number] 11:06-0400 Height 162.56 cm Sophie Winklestine INVENTORY SPECIALIST [facility] Work Phone: NEGATED: Highlighted [id number] 11:06-0400 Height 163 cm Sophie Winklestine INVENTORY SPECIALIST [facility] Work Phone: NEGATED: Highlighted [id number] 11:06-0400 Pulse (Heart Rate) 74 /min Sophie Winklestine INVENTORY SPECIALIST [facility] Work Phone: NEGATED: Highlighted [id number] 11:040 Weight 63.5 kg Sophie Durham LPN [facility] Work Phone: NEGATED: Highlighted [id number] 11:040 Weight 64 kg Sophie Durham LPN [facility] Work Phone: Encounters Encounter Date Encounter Type Care Provider Facility Start: 03-30-2024 End: 03-30-2024 ambulatory NURIS L LEIGH SUPERVISOR TESTING-SENIOR PORTFOLIO ANALYST Facility:[facility] Start: 03-30-2024 End: 03-30-2024 Patient encounter procedure NURIS LEIGH SUPERVISOR TESTING-SENIOR PORTFOLIO ANALYST [facility] Start: 02-14-2024 End: 02-14-2024 ambulatory LIZZETTE MÓNICA DO Facility:[facility] Start: 02-14-2024 End: 02-14-2024 Patient encounter procedure LIZZETTE LYNCHLAY DO [facility] Start: 12-16-2023 End: 12-16-2023 ambulatory LIZZETTE MÓNICA DO Facility:[facility] Start: 11-22-2023 End: 11-26-2023 ambulatory NURIS L LEIGH SUPERVISOR TESTING-SENIOR PORTFOLIO ANALYST Facility:[facility] Start: 11-22-2023 End: 11-26-2023 Outreach Lab NURIS LEIGH SUPERVISOR TESTING-SENIOR PORTFOLIO ANALYST [facility] Start: 11-08-2023 End: 11-08-2023 ambulatory LIZZETTE MÓNICA DO Facility:[facility] Start: 11-08-2023 End: 11-08-2023 Patient encounter procedure LIZZETTE MÓNICA DO [facility] Start: 11-03-2023 End: 11-03-2023 ambulatory LIZZETTE MÓNICA DO Facility:[facility] Start: 11-03-2023 End: 11-03-2023 Patient encounter procedure LIZZETTE MÓNICA DO [facility] Start: 10-13-2023 End: 10-13-2023 ambulatory BENITO RICHARDSON SUPERVISOR TESTING-SENIOR PORTFOLIO ANALYST Facility:[facility] Start: 10-04-2023 End: 10-04-2023 Emergency department patient visit LEONARDO HOWE DO [facility] Start: 09-30-2023 ambulatory LIZZETTE SALES DO Facil ity:[facility] Start: 09-28-2023 End: 09-28-2023 ambulatory LIZZETTE SALES DO Facility:[facility] Start: 09-24-2023 End: 09-24-2023 ambulatory LEONARDO KAREN SUPERVISOR TESTING-SENIOR PORTFOLIO ANALYST Facility:[facility] Start: 09-24-2023 End: 09-24-2023 Patient encounter procedure LEONARDO KAREN SUPERVISOR TESTING-SENIOR PORTFOLIO ANALYST [facility] Start: 09-21-2023 End: 09-21-2023 Emergency department patient visit GOKUL REYES MD [facility] Start: 09-13-2023 End: 09-17-2023 ambulatory LEONARDO KAREN SUPERVISOR TESTING-SENIOR PORTFOLIO ANALYST Facility:[facility] Start: 09-09-2023 End: 09-09-2023 ambulatory GALE VACCARELLI PA-C Facility:[facility] Start: 09-09-2023 End: 09-09-2023 Patient encounter procedure GALE VACCARELLI PA-C [facility] Start: 08-03-2023 End: 08-07-2023 ambulatory LIZZETTE SALES DO Facility:[facility] Start: 08-03-2023 End: 08-07-2023 Outreach Lab LIZZETTE SALES DO [facility] Start: 05-13-2023 End: 05-13-2023 ambulatory LIZZETTE SALES DO Facility:[facility] Start: 05-13-2023 End: 05-13-2023 Patient encounter procedure LIZZETTE SALES DO [facility] Start: 05-08-2023 End: 05-08-2023 Emergency department patient visit DR CHANTAL ZAPIEN MD [facility] Start: 05-04-2023 End: 05-08-[address] CHELI BARRIGA DO Facility:[facility] Start: 05-04-2023 End: 05-08-[address] CHELI BARRIGA DO [facility] Start: 08-28-2022 End: 09-01-2022 Outreach Lab LIZZETTE SALES DO [facility] Start: 08-13-2022 End: 08-13-2022 Patient encounter procedure LIZZETTE SALES DO [facility] Start: 08-05-2022 End: 08-09-2022 Outreach Lab ILZZETTE SALES DO [facility] Start: 07-17-2022 End: 07-17-2022 Patient encounter procedure LIZZETTE SLAES DO [facility] Start: 07-07-2022 End: 07-07-2022 Patient encounter procedure LIZZETTE SALES DO [facility] Start: 05-12-2022 End: 05-12-2022 Patient encounter procedure LIZZETTE SALES DO [facility] Start: 02-24-2022 End: 02-24-2022 Patient encounter procedure JOSE NOGUEIRA SUPERVISOR TESTING-SENIOR PORTFOLIO ANALYST [facility] Start: 11-25-2021 End: 11-25-2021 Patient encounter procedure LIZZETTE SALES DO [facility] Start: 10-29-2021 End: 10-29-2021 Patient encounter procedure LIZZETTE SALES DO [facility] Start: 07-04-2021 End: 07-04-2021 Patient encounter procedure LIZZETTE SALES DO [facility] Start: 07-02-2021 End: 07-06-2021 Outreach Lab LIZZETTE Monreal MÓNICA DO [facility] Start: 06-03-2021 End: 06-03-2021 Patient encounter procedure RAZIA STRONG DO [facility] Start: 05-12-2021 End: 05-12-2021 Patient encounter procedure LIZZETTE SALES DO [facility] Start: 05-06-2021 End: 05-06-2021 Patient encounter procedure LIZZETTE SALES DO [facility] Procedures Date Procedure Procedure Detail Performing Clinician Start: 10-05-2017 End: 10-05-2017 CERVICAL COLLAR SERPENTINE (PAULA) Tacos Estes DO Work Phone: Abdominal hysterectomy RON SALES DO Appendectomy LIZZETTE SALES DO Bilateral salpingect lina with oophorectomy LIZZETTE SALES DO Refusal of treatment by patient Procedure refused LIZZETTE SALES DO Tonsillectomy LIZZETTE SALES DO Umbilical hernia (disorder) LIZZETTE SALES DO Plan of Treatment Date Care Activity Detail Author Patient Education \cps-sql1\CPS_ PtEducation\htn .pdf [facility] Work Phone: Immunizations Immunization Date Immunization Notes Care Provider [facility] 05-06-2021 COVID-19, mRNA, LNP- S, PF, 100 mcg/ 0.5 mL dose; Translations: [Moderna COVID-19 Vaccine] LIZZETTE SALES DO [facility] 09-25-2020 zoster vaccine recombinant LIZZETTE SALES DO [facility] 08-13-2020 COVID-19, mRNA, LNP- S, PF, 100 mcg/ 0.5 mL dose; Translations: [Moderna COVID-19 Vaccine] LIZZETTE SALES DO [facility] 07-16-2020 COVID-19, mRNA, LNP- S, PF, 100 mcg/ 0.5 mL dose; Translations: [Moderna COVID-19 Vaccine] LIZZETTE SALES DO [facility] 04-19-2020 zoster vaccine recombinant LIZZETTE SALES DO [facility] 04-19-2020 zoster vaccine, live LIZZETTE SALES DO [facility] Comment on above: Result Comment: [] [employer] 07-09-2015 pneumococcal conjuga te vaccine, 13 valent LIZZETTE SALES DO [facility] 12-07-2013 tetanus toxoid, redu xiao diphtheria toxoid, and acellular pertussis vaccine, adsorbed LIZZETTE SALES DO [facility] 08-02-2013 pneumococcal polysaccharide vaccine, 23 valent LIZZETTE SALES DO [facility] 12-15-2012 zoster vaccine, live LIZZETTE SALES DO [facility] 07-01-2009 hepatitis A and hepatitis B vaccine LIZZETTE SALES DO [facility] 05-21-2009 adenovirus, type 4 a nd type 7, live, oral LIZZETTE SALES DO [facility] 05-21-2009 hepatitis A vaccine, adult dosage LIZZETTE SALES DO [facility] 05-21-2009 hepatitis B vaccine, adult dosage LIZZETTE FAYEY DO [facility] No information available. Sophie Durham LPN [facility] Work Phone: Payers Date Payer Category Payer Unknown [id number] 1940 Unknown [id number] 2.16.8 [id number] 1940 Unknown [id number] 2.16.8 [id number] 1939 Unknown [id number] 2.16.8 40.1.552192.3.579.2.62 1939 Unknown [id number] 2.16.8 40.1.892981.3.579.2.62 1939 Unknown [id number] 2.16.8 40.1.873221.3.579.2.62 1939 Unknown [id number] 2.16.8 40.1.477220.3.579.2. 1939 Unknown [id number] 2.16.8 40.1.773621.3.579.2. 1939 Unknown [id number] 2.16.8 40.1.584455.3.579.2.62 1939 Unknown [id number] 2.16.8 40.1.297084.3.579.2. 1939 Unknown [id number] 2.16.8 40.1.130059.3.579.2.62 1939 Unknown [id number] 2.16.8 40.1.977778.3.579.2.62 1939 Unknown [id number] 2.16.8 40.1.599308.3.579.2.62 1939 Unknown [id number] 2.16.8 40.1.515201.3.579.2. 1939 Unknown [id number] 2.16.8 40.1.289542.3.579.2.62 1939 Unknown [id number] 2.16.8 40.1.730448.3.579.2627 1939 Unknown [id number] 2.16.8 40.1.681132.3.579.2.627 1939 Unknown [id number] 2.16.8 40.1.985758.3.579.2.627 1940 Unknown [id number] 2.16.8 40.1.164724.3.579.2.627 Social History Date Type Detail Facility Start: 04-09-2020 Never smoked t obacco (finding) [facility] Sex Assigned At Female [facility] NEGATED: Highlighted rowStart: 10-05-2017 End: 10-05-2017 Alcohol use ETOH USE No [facility] Work Phone: NEGATED: Highlighted rowStart: 10-05-2017 End: 10-05-2017 Details of drug misuse behavior DRUG USE No [facility] Work Phone: NEGATED: Highlighted rowStart: 10-05-2017 End: 10-05-2017 How many days of moderate to strenuous exercise, like a brisk walk, did you do in the last 7 days? EXERCISEFREQ 2 days per week [facility] Work Phone: NEGATED: Highlighted rowStart: 10-05-2017 End: 10-05-2017 Assertion Never smoker [facility] Work Phone: Functional Status Date Assessment Result Facility 10-04-2023 Functional Status Independent [facility] 10-04-2023 Functional Status ID band on, Call device within reach, Bed in low position, Wheels locked, Upper/Half-Length side-rails up, Visitor at bedside, Safety level maintained [facility] 09-21-2023 Functional Status Independent [facility] 09-21-2023 Functional Status ID band on, Call device within reach, Bed in low position, Wheels locked, Upper/Half-Length side-rails up, Visitor at bedside, Safety level maintained [facility] 05-08-2023 Functional Status Assistive Device None A [facility] 05-08-2023 Functional Status Repositions self [facility] Mental Status Date Assessment Result Facility 10-04-2023 Mental Status Orientation Oriented x 4 [facility] 10-04-[address] [facility] 09-21-2023 Mental Status Orientation Oriented x 4 [facility] 09-21-2023 Mental Status [facility] 05-08-2023 Mental Status Orientation Oriented x 4 [facility] Clinical Notes 07-17-2022 to 11-23-2023 RadiologyLaboratoryRadiologyRadiologyLaboratoryRadiologyLaboratoryRadiologyLabor atoryRadiologyLaboratoryRadiologyRadiologyRadiologyRadiologyRadiologyRadiology Note Date & Type Note Facility 11-23-2023 [...] Locations *1: This test was performed at: [facility], [address] [place] [address], [id number] , [facility] ([place]) 11-08-2023 Note ORIGINAL EXAMINATION: CT OF THE [...] 11/08/2023 3:25:32 PM Ordering Provider: LIZZETTE SALES [facility] 11-03-2023 Note ORIGINAL EXAMINATION: ONE SUPINE XRAY [...] 11/03/2023 10:51:20 AM Ordering Provider: LIZZETTE SALES [facility] 10-04-2023 Hospital Discharge instructions Patient Education 10/04/2023 12:45:26 AA Blank DI (CUSTOM) Result type:CT Abd/Pelvis w/ IV Contrast Only Result date:October 04, 2023 11:49 EDT Result status:Auth (Verified) Result title:CT ABD/PELVIS W/ IV CONTRAST ONLY Performed by:NII CARMEN MD on October 04, 2023 11:37 EDT Cosigned by:NII CARMEN MD Verified by:NII CARMEN MD on October 04, 2023 11:49 EDT Encounter info:[id number], [facility], Emergency, 10/04/2023 - Contributor system:[employer]OGAS[employer] * Final Report * [id number] ORIGINAL EXAMINATION: CT OF THE ABDOMEN AND [...] Document Reviewed: 05/25/2014 ExitCare Patient Information 2015 ?. This information is not intended to replace [...] are taking other medicines. You may use yhek-czs-ocbzxug medicine to control pain, unless another pain [...] or as directed by your healthcare provider [phone] [employer]. [address] [place] [address]. All rights reserved. This information is not [...] foods again, start with small amounts of jwww-ng-aooeef, low-fat foods. These include apple sauce, toast, [...] increase stomach acid. Don't use aspirin or cbbb-qmc-ghzhial pain and fever medicines, if possible. This includes nonsteroidal anti-inflammatory drugs (NSAIDs). Lose excess weight. Finish eating at least 2 hours before you go to bed or lie down. Raise the head of your bed. [phone] [employer]. [address] [place] [address]. All rights reserved. This information is not intended as a substitute for professional medical care. Always follow your healthcare professional's instructions. Follow Up Care 10/04/2023 10:06:48 With:AWAIS SUN MD Address: [address] [address] [phone] When:2-4 days With:your back doctor Address: When:2-4 days With:Go to emergency room if symptoms worsen Address:Unknown When:2-4 days With:LIZZETTE SALES DO Address: [address] [facility] [place] [address] [phone] When:2-4 days [facility] 10-04-2023 Note Discharge Instructions Thank you for allowing [facility] to assist you with your healthcare needs. [...] Where: [address] [place] [address] [phone] Follow Up with your back doctor When Within 2-4 days Where: Follow Up with Go to emergency room if symptoms worsen When Within 2-4 days Follow Up with LIZZETTE SALES DO When Within 2-4 days Where: [address] [facility] [place] [address] [phone] Allergies NKA Medications Please ask your primary [...] October 04, 2023 11:49 EDT Encounter info: [id number], [facility], [facility], 10/04/2023 - Contributor system: YOGASMOGA * Final Report * [id number] ORIGINAL EXAMINATION: CT OF THE ABDOMEN AND [...] 05/24/2006 Document Revised: 05/10/2013 Document Reviewed: 05/25/2014 [facility] [place] Patient Information 2015 [facility]. This information is not intended to replace [...] are taking other medicines. You may use dzzl-hjr-psbjvvj medicine to control pain, unless another pain [...] or as directed by your healthcare provider [phone] [employer]. [address] [place] [address]. All rights reserved. This information is not [...] foods again, start with small amounts of gtmk-pm-jtgyiq, low-fat foods. These include apple sauce, toast, [...] increase stomach acid. Don't use aspirin or zpea-iyk-hckodfd pain and fever medicines, if possible. This includes nonsteroidal anti-inflammatory drugs (NSAIDs). Lose excess weight. Finish eating at least 2 hours before you go to bed or lie down. Raise the head of your bed. [phone] [employer]. [address] [place] [address], [place] [address]. All rights reserved. This information is not intended as a substitute for professional medical care. Always follow your healthcare professional's instructions. Additional Information VACCINATE! IT SAVES LIVES! Members of the community who have not yet received the COVID-19 vaccine and would like to receive it can visit one of [facility] vaccine clinics. There are many vaccine clinic locations within the [facility]. For locations and available times, please visit [email or web address] It is important to note that some COVID mobile vaccine clinics are held outdoors and may be canceled in rainy or stormy conditions. To learn more about pediatric vaccinations (ages 5-11), we invite you to visit the [employer] [facility] webpage. https://www.[employer] urSelfs.org/pag es/2012-Dkzzf-Dmjsuayvfvx-Frequent ol-Jopel-Yhcysltnj.html To learn more about the COVID-19 vaccine, we invite you to visit the CDC website for a list of frequently asked questions. https://www.cdc.gov/coronavirus/-ncov/vaccines/faq.html [facility] [employer] Patient Portal Access Instructions: Stay connected with your healthcare team and access your personal medical information anytime with the [facility] Patient Portal. If you would like a full copy of your medical records please contact the [facility] Medical Records Department Wednesday through Wednesday between 8a.m. and 4:30p.m. Please follow the directions below to access the portal: 1.Access the email account you provided upon registration to the [facility].2.Look for an invitation email from [facility].3.Open the email and access the invitation link: Accept Invitation to [facility]4.Fill in the required shah to create your account. Sign into www.[facility] with your username and password that you [...] you will allow to register on the [employer] [facility] Patient Portal for access to your information. You can also access the [employer] [facility] Patient Portal on the [employer] denis. Simply click on Health Records under Health Data and then click on the [employer] logo. HOW TO SAFELY DISPOSE OF PRESCRIPTION [...] Call your local pharmacy or go to [email or web address] to find one close to you.3.Make use of household items: Use cat litter or old coffee grounds to dispose medications if other options are not available. Mix your drugs with these household products, seal them in an airtight container and throw it into the garbage. Call [facility]: [phone] to be sure your drugs can be [...] a CHART COPY Signatures Patient Education Materials BARRY Boo DI (CUSTOM) Back and Neck Pain, General Abdominal Pain Medication Leaflets My discharge plan and instructions have been reviewed and explained to me and IBALA CAROLYN M understand my current condition and have read and understand these discharge instructions. I have received a written copy of the plan/instructions. If I have questions, I am aware that I should contact my doctor. Patient/Analytics Leader Signature: Date/Time: Relationship to Patient: ___ Witness Name/Signature: Date/Time: [facility] 10-04-2023 Note ORIGINAL EXAMINATION: CT OF [...] 10/04/2023 12:06:02 PM Ordering Provider: LEONARDO GUIDRY [facility] 09-21-2023 Hospital Discharge instructions Patient Education 09/21/2023 [...] are taking other medicines. You may use xpml-jan-uwjwxjd medicine as directed on the bottle to [...] Numbness in the groin or genital area [id number] [employer] [place] [address]. All rights reserved. This information is not intended as a substitute for professional medical care. Always follow your healthcare professional's instructions. Follow Up Care 09/21/2023 09:32:16 With:LIZZETTE SALES Address: [address] [place] [phone]- [phone] Business (1) When:1-2 days Comments:Contact your doctor's office to schedule an outpatient MRI of your lumbar spine.Limit activity as tolerated.Continue pain medication as prescribed by your doctor.Use Fairview as prescribed for severe pain. Take Zofran prior to try to prevent GI side effects of the pain medication.Return to the ED if symptoms worsen. [facility] 09-21-2023 Note Discharge Instructions Thank you for allowing [facility] to assist you with your healthcare needs. [...] medication as prescribed by your doctor. Use Fairview as prescribed for severe pain. Take Zofran prior to try to prevent GI side effects of the pain medication. Return to the ED if symptoms worsen. Where: [address] [place] [address]- [phone] Business (1) Allergies NKA Medications Please ask your primary doctor or pharmacist before taking any other medication not listed, including over the counter drugs, herbal medications, vitamins and or supplements as they may interact with your home medications. What How Much When Why Instructions Last Dose New acetaminophen-hydrocodone (Fairview 325- 5 mg oral tablet) 1 tab(s) [...] are taking other medicines. You may use yrds-rxv-kixxfqi medicine as directed on the bottle to [...] Numbness in the groin or genital area 4309-2929 [employer]. [address] [place] [address], [place] [address]. All rights reserved. This information is not intended as a substitute for professional medical care. Always follow your healthcare professional's instructions. Additional Information VACCINATE! IT SAVES LIVES! Members of the community who have not yet received the COVID-19 vaccine and would like to receive it can visit one of [facility] vaccine clinics. There are many vaccine clinic locations within the [facility]. For locations and available times, please visit www.[email or web address] v/. It is important to note that some COVID mobile vaccine clinics are held outdoors and may be canceled in rainy or stormy conditions. To learn more about pediatric vaccinations (ages 5-11), we invite you to visit the [facility] webpage. https://www.[facility].org/pag es/1567-Nlapt-Owzfgrsrqsd-Frequent uo-Fxtyj-Yldolbxny.html To learn more about the COVID-19 vaccine, we invite you to visit the CDC website for a list of frequently asked questions. https://www.cdc.gov/coronavirus/ 19-ncov/vaccines/faq.html [facility] Patient Portal Access Instructions: Stay connected with your healthcare team and access your personal medical information anytime with the [employer] [facility] Patient Portal. If you would like a full copy of your medical records please contact the [facility] Medical Records Department Wednesday through Wednesday between 8a.m. and 4:30p.m. Please follow the directions below to access the portal: 1.Access the email account you provided upon registration to the hospital.2.Look for an invitation email from [facility].3.Open the email and access the invitation link: Accept Invitation to [facility]4.Fill in the required shah to create your account. Sign into [email or web address] with your username and password that you [...] you will allow to register on the [employer] Patient Portal for access to your information. You can also access the [facility] Patient Portal on the Simpler denis. Simply click on Health Records under Health Data and then click on the [employer] logo. HOW TO SAFELY DISPOSE OF PRESCRIPTION [...] Call your local pharmacy or go to http://[employer].Clinkle/8F8Mw6n to find one close to you.3.Make use of household items: Use cat litter or old coffee grounds to dispose medications if other options are not available. Mix your drugs with these household products, seal them in an airtight container and throw it into the garbage. Call [facility]: [phone] to be sure your drugs can be [...] aware that I should contact my doctor. Patient/Analytics Leader Signature: Date/Time: Relationship to Patient: ___ Witness Name/Signature: Date/Time: [facility] 09-15-2023 Note . MICRO - Microbiology [...] Locations *1: This test was performed at: [address], [address] [place] [address] ([place]) 05-08-2023 Hospital Discharge instructions Patient Education 05/08/2023 [...] Swelling, pain, or redness in one leg 7640-6018 [employer]. [address] [place] [address]. All rights reserved. This information is not intended as a substitute for professional medical care. Always follow your healthcare professional's instructions. Follow [facility] Care 05/08/2023 09:01:37 With:LIZZETTE SALES DO Address: [address] [place] [address] [place] [address]- [phone] When:2-4 days [facility] 05-08-2023 Note Discharge Instructions Thank you for allowing [facility] to assist you with your healthcare needs. The following is important discharge information regarding your hospital visit. Diagnosis from Today's Visit Atypical chest pain Chest pain What to Do Next Instructions from Your Care Team No qualifying data available. Post Acute Orders No qualifying data available. 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 [...] may report side effects to FDA at 1-403-EOO-0268. What other drugs will affect pantoprazole? Tell your doctor about all your other medicines, especially: digoxin; methotrexate; or a diuretic or 'water pill.' This list is not complete. Other drugs may affect pantoprazole, including prescription and hzan-fci-mhpimzt medicines, vitamins, and herbal products. Not all [...] to ensure that the information provided by [employer]argre[employer]. ('[employer]') is accurate, up-to-date, and complete, but no guarantee is made to that effect. Drug information contained herein may be time sensitive. [employer] information has been compiled for use by healthcare practitioners and consumers in the [place] and therefore [employer] does not warrant that uses outside of the [place] are appropriate, unless specifically indicated otherwise. [employer] drug information does not endorse drugs, diagnose patients or recommend therapy. [employer] drug information is an informational resource designed [...] effective or appropriate for any given patient. [employer] does not assume any responsibility for any aspect of healthcare administered with the aid of information [employer] provides. The information contained herein is not intended to cover all possible uses, directions, precautions, warnings, drug interactions, allergic reactions, or adverse effects. If you have questions about the drugs you are taking, check with your doctor, nurse or pharmacist. Copyright 7689-1067 [employer]re[employer]. Version: 21.. Revision Date: 06/10/2020. Education Materials Noncardiac Chest [...] Swelling, pain, or redness in one leg 3305-6884 [employer]. [address] [place] [address], [place] [address]. All rights reserved. This information is not intended as a substitute for professional medical care. Always follow your healthcare professional's instructions. Additional Information VACCINATE! IT SAVES LIVES! Members of the community who have not yet received the COVID-19 vaccine and would like to receive it can visit one of [facility] vaccine clinics. There are many vaccine clinic locations within the [facility]. For locations and available times, please visit www.[email or web address].[place].go v/. It is important to note that some COVID mobile vaccine clinics are held outdoors and may be canceled in rainy or stormy conditions. To learn more about pediatric vaccinations (ages 5-11), we invite you to visit the [facility] webpage. https://www.[facility].org/pag es/0586-Vgejo-Zsfyfvjxaku-Frequent ds-Dhdvr-Catulqdin.html To learn more about the COVID-19 vaccine, we invite you to visit the CDC website for a list of frequently asked questions. https://www.cdc.gov/coronavirus/20 19-ncov/vaccines/faq.html [facility] Patient Portal Access Instructions: Stay connected with your healthcare team and access your personal medical information anytime with the [facility] Patient Portal. If you would like a full copy of your medical records please contact the [facility] Medical Records Department Wednesday through Wednesday between 8a.m. and 4:30p.m. Please follow the directions below to access the portal: 1.Access the email account you provided upon registration to the hospital.2.Look for an invitation email from [facility].3.Open the email and access the invitation link: Accept Invitation to [facility]4.Fill in the required shah to create your account. Sign into [email or web address] with your username and password that you [...] you will allow to register on the [employer] Patient Portal for access to your information. You can also access the [employer] Patient Portal on the Simpler denis. Simply click on Health Records under Health Data and then click on the [employer] logo. HOW TO SAFELY DISPOSE OF PRESCRIPTION [...] Call your local pharmacy or go to http://[employer].Clinkle/5W0Sw9u to find one close to you.3.Make use of household items: Use cat litter or old coffee grounds to dispose medications if other options are not available. Mix your drugs with these household products, seal them in an airtight container and throw it into the garbage. Call [facility]: [phone] to be sure your drugs can be [...] been reviewed and explained to me and I,BOB MCKENNA understand my current condition and have read and understand these discharge instructions. I have received a written copy of the plan/instructions. If I have questions, I am aware that I should contact my doctor. Patient/Analytics Leader Signature: Date/Time: Relationship to Patient: ___ Witness Name/Signature: Date/Time: [facility] 05-08-2023 Note ORIGINAL EXAMINATION: CTA OF [...] Reason for Exam: elevated d dimer FINDINGS: Bryg-pq-ubjjemse degenerative changes are noted in the spine. [...] 05/08/2023 12:45:07 PM Ordering Provider: CHANTAL ZAPIEN [facility] 05-08-2023 Note ORIGINAL EXAMINATION: ONE XRAY [...] 05/08/2023 11:11:05 AM Ordering Provider: CHANTAL ZAPIEN [facility] 05-08-2023 Note Sinus rhythm Electronic Signature: CHANTAL ZAPIEN MD 05/08/2023 09:34:57 [facility] 05-06-2023 Note . MICRO - Microbiology [...] Locations *1: This test was performed at: [facility], [address] [place] [address], [id number]- , [facility] ([place]) 08-05-2022 SARS-CoV-2 (COVID-19) RNA BREANNA+probe Ql (Nph) [...] Date: 07/17/2022 6:24:30 PM Ordering Provider: LIZZETTE SALES [facility] 07-17-2022 Note ORIGINAL EXAMINATION: SOFT TISSUE [...] Date: 07/17/2022 6:24:30 PM Ordering Provider: LIZZETTE SALES [facility] Evaluation + Plan note Future Appointments Appointment Date:05/12/2021 10:00:00 AM Scheduled Provider: Location:[facility] Appointment Type:BD Bone Density DEXA Axial Skeleton Appointment Date:10/29/2021 08:00:00 AM Scheduled Provider:LIZZETTE SALES DO Location:[facility] Appointment Type: OV Future Scheduled TestsBD Bone Density DEXA Axial Skeleton 05/12/21 [facility] Evaluation + Plan note Future Appointments Appointment Date:10/29/2021 08:00:00 AM Scheduled Provider:LIZZETTE SALES DO Location:[facility] Appointment Type: OV [facility] Evaluation + Plan note Future Appointments Appointment Date:10/29/2021 08:00:00 AM Scheduled Provider:LIZZETTE SALES DO Location:[facility] Appointment Type: OV Future Scheduled TestsCOVID-19 Only (AO) 06/02/21 [facility] Evaluation + Plan note Future Appointments Appointment Date:05/06/2022 08:00:00 AM Scheduled Provider:LIZZETTE SALES DO Location:[facility] Appointment Type:PC Wellness Medicare [facility] Evaluation + Plan note Future Appointments Appointment Date:03/10/2022 01:30:00 PM Scheduled Provider:LIZZETTE SALES DO Location:[facility] Appointment Type:PC OV Follow Up Appointment Date:05/06/2022 08:00:00 AM Scheduled Provider:LIZZETTE SALES DO Location:[facility] Appointment Type:PC Wellness Medicare [facility] Evaluation + Plan note Future Appointments Appointment Date:09/02/2022 09:00:00 AM Scheduled Provider:LIZZETTE SALES DO Location:[facility] Appointment Type:PC OV Follow Up [facility] Evaluation + Plan note Future Appointments Appointment Date:08/28/2022 09:00:00 AM Scheduled Provider:LIZZETTE SALES DO Location:[facility] Appointment Type:PC OV Follow Up Diagnostic Tests PendingVitamin B12 Level 07/07/22 Future Scheduled TestsUS Soft Tissue Mass 07/07/22 [facility] Evaluation + Plan note Future Appointments Appointment Date:08/28/2022 09:00:00 AM Scheduled Provider:LIZZETTE SALES DO Location:[facility] Appointment Type:PC OV Follow Up [facility] Evaluation + Plan note Future Appointments Appointment Date:10/23/2022 09:30:00 AM Scheduled Provider:LIZZETTE SALES DO Location:[facility] Appointment Type:PC OV [facility] Evaluation + Plan note Future Appointments Appointment Date:05/11/2023 10:30:00 AM Scheduled Provider:LIZZETTE SALES DO Location:[facility] Appointment Type: Wellness Medicare [facility] Evaluation + Plan note Future Appointments Appointment Date:08/03/2023 11:00:00 AM Scheduled Provider:LIZZETTE SALES DO Location:[facility] Appointment Type:PC OV Future Scheduled TestsBD Bone Density DEXA Axial Skeleton 05/11/23 [facility] Evaluation + Plan note Future Appointments Appointment Date:12/02/2023 11:00:00 AM Scheduled Provider:LIZZETTE SALES DO Location:[facility] Appointment Type:PC OV Future Scheduled TestsThyroid Stimulating Hormone 08/03/23BD Bone Density DEXA Axial Skeleton 05/11/23 [facility] Evaluation + Plan note Future Appointments Appointment Date:12/14/2023 11:00:00 AM Scheduled Provider:LIZZETTE SALES DO Location:[facility] Appointment Type:PC OV Future Scheduled TestsThyroid Stimulating Hormone 08/03/23BD Bone Density DEXA Axial Skeleton 05/11/23 [facility] Evaluation + Plan note Future Appointments Appointment Date:09/22/2023 08:00:00 AM Scheduled Provider:LIZZETTE SALES DO Location:[facility] Appointment Type:PC OV Appointment Date:09/24/2023 09:30:00 AM Scheduled Provider: Silver:[facility] Appointment Type:CT Abdomen and Pelvis w/o Contrast Appointment Date:12/14/2023 11:00:00 AM Scheduled Provider:LIZZETTE SALES DO Location:[facility] Appointment Type:PC OV Future Scheduled TestsThyroid Stimulating Hormone 08/03/23BD Bone Density DEXA Axial Skeleton 05/11/23CT Abdomen and Pelvis w/o contrast 09/24/23 [facility] Evaluation + Plan note Future Appointments Appointment Date:11/03/2023 09:00:00 AM Scheduled Provider:LIZZETTE SALES DO Location:[facility] Appointment Type:PC OV Appointment Date:12/14/2023 11:00:00 AM Scheduled Provider:LIZZETTE SALES DO Location:[facility] Appointment Type:PC OV Future Scheduled TestsBasic Metabolic Panel 09/22/23Thyroid Stimulating Hormone 08/03/23BD Bone Density DEXA Axial Skeleton 05/11/23MRI Spine Lumbar w/ + w/o Contrast 09/22/23 [facility] Evaluation + Plan note Future Appointments Appointment Date:10/05/2023 12:30:00 PM Scheduled Provider:LIZZETTE SALES DO Location:[facility] Appointment Type:PC OV ED Follow Up Appointment Date:11/03/2023 09:00:00 AM Scheduled Provider:LIZZETTE SALES DO Location:[facility] Appointment Type:PC OV Appointment Date:12/14/2023 11:00:00 AM Scheduled Provider:LIZZETTE SALES DO Location:[facility] Appointment Type:PC OV Future Scheduled TestsBD Bone Density DEXA Axial Skeleton 10/01/23MRI Spine Lumbar w/ + w/o Contrast 09/22/23 [facility] Evaluation + Plan note Future Appointments Appointment Date:12/14/2023 11:00:00 AM Scheduled Provider:LIZZETTE SALES DO Location:[facility] Appointment Type:PC OV Future Scheduled TestsBD Bone Density DEXA Axial Skeleton 10/01/23CT Abdomen and Pelvis w/ contrast 11/03/23MRI Spine Lumbar w/ + w/o Contrast 09/22/23 [facility] Evaluation + Plan note Future Appointments Appointment Date:12/14/2023 11:00:00 AM Scheduled Provider:LIZZETTE SALES DO Location:[facility] Appointment Type:PC OV Future Scheduled TestsBD Bone Density DEXA Axial Skeleton 10/01/23MRI Spine Lumbar w/ + w/o Contrast 09/22/23 [facility] Evaluation + Plan note Future Appointments Appointment Date:02/16/2024 09:30:00 AM Scheduled Provider:LIZZETTE SALES DO Location:[facility] Appointment Type:PC OV Future Scheduled TestsBD Bone Density DEXA Axial Skeleton 10/01/23MRI Spine Lumbar w/ + w/o Contrast 09/22/23 [facility] Evaluation + Plan note Future Appointments Appointment Date:05/25/2024 10:30:00 AM Scheduled Provider:LIZZETTE SALES DO Location:[facility] Appointment Type: Wellness Medicare Future Scheduled TestsBD Bone Density DEXA Axial Skeleton 10/01/23MRI Spine Lumbar w/ + w/o Contrast 09/22/23 [facility] Hospital course Narrative No data available for this section [facility] Hospital Discharge instructions No data available for this section [facility] Progress note No data available for this section [facility] Instructions Instruction Description Start Date CompletedPlease follow-up wi th Primary Care Physician or Temporary Administrative Assistant for treatment or adjustment of medication regarding [...] content) Personnel Name: LIZZETTE SALES DO Address: [address] [facility] [place], [place] [address] Name: Santiago Carballo PT Care Team Personnel Name: IVELISSE LISA MD Member Role: Pain Management Address: Address: [address] [place] [address] Name: Santiago Carballo PT Position: P3 Scheduling - Dishwasher Preparer Advanced Member Role: Other Name: SERAFIN AHUMADA MD Member Role: Sole Tier Address: Address: [facility] [address] [place] [address]- Name: ROZINA JEFFERSON MD Member Role: Oncologist Address: Address: [address] [place] [address]- Name: OLU GEORGE Member Role: Dentist Name: LIZZETTE SALES DO Position: P4 Physician - Primary Care Member Role: Primary Care Physician Address: Address: [address] [place] [address]- Name: VINCENT CASTRO Member Role: Stripper Shovel Operator Care Team Related Persons Name: CHELSI HEARN Care Team Personnel Name: IVELISSE LISA MD Member Role: Pain Management Address: Address: [address] [place], [place] [id number] Name: Santiago Carballork Joan PT Position: P3 Scheduling - Dishwasher Preparer Advanced Member Role: Other Name: SERAFIN AHUMADA MD Member Role: Sole Tier Address: Address: [facility] [address] [place] [address]- Name: ROZINA JEFFERSON MD Member Role: Oncologist Address: Address: [address] [place] [address]- Name: OLU GEORGE Member Role: Dentist Name: NICKIE COOK MD Member Role: Customer Experience Professional Address: Address: [address] [place] [address]- Name: LIZZETTE SALES DO Position: P4 Physician - Primary Care Member Role: Primary Care Physician Address: Address: [address] [place] [address]- [place] Name: VINCENT CASTRO Member Role: Stripper Shovel Operator Care Team Related Persons Name: CHELSI HEARN Care Team Personnel Name: IVELISSE LISA MD Member Role: Pain Management Address: Address: [address] [place] [address] [place] Name: Santiago Carballork Joan PT Position: P3 Scheduling - Dishwasher Preparer Advanced Member Role: Other Name: SERAFIN AHUMADA MD Member Role: Sole Tier Address: Address: [facility] [address] [place] [address]- [place] Name: ROZINA JEFFERSON MD Member Role: Oncologist Address: Address: [address] [place] [address]- Name: OLU GEORGE Member Role: Dentist Name: NICKIE COOK MD Member Role: Customer Experience Professional Address: Address: [address] [place] [address]- [place] Name: LIZZETTE SALES DO Position: P4 Physician - Primary Care Member Role: Primary Care Physician Address: Address: [address] [place] [address]- [place] Name: VINCENT CASTRO Member Role: Stripper Shovel Operator Name: CHANTAL ZAPIEN MD Position: [facility] Physician Member Role: Attending Physician Address: Address: [address] [place] [address]- Care Team Related Persons Name: CHELSI HEARN Care Team Personnel Name: IVELISSE LISA MD Member Role: Pain Management Address: Address: [place] [address]- Name: Santiago Carballo PT Position: P3 Scheduling - Dishwasher Preparer Advanced Member Role: Other Name: SERAFIN AHUMADA MD Member Role: Sole Tier Address: Address: [facility] [address] [place] [address]- [place] Name: ROZINA JEFFERSON MD Member Role: Oncologist Address: Address: [address] [place] [address]- [place] Name: OLU GEORGE Member Role: Dentist Name: NICKIE COOK MD Member Role: Customer Experience Professional Address: Address: [address] [place] [address]- [place] Name: LIZZETTE SALES DO Position: P4 Physician - Primary Care Member Role: Primary Care Physician Address: Address: [address] [place] [address]- [place] Name: VINCENT CASTRO Member Role: Stripper Shovel Operator Care Team Related Persons Name: CHELSI HEARN Care Team Personnel Name: IVELISSE LISA MD Member Role: Pain Management Address: Address: [address] [place] [address]- [place] Name: [place], Hotel Superintendent Joan PT Position: P3 Scheduling - Dishwasher Preparer Advanced Member Role: Other Name: SERAFIN AHUMADA MD Member Role: Sole Tier Address: Address: [facility] [address] [place] [address]- Name: ROZINA JEFFERSON MD Member Role: Oncologist Address: Address: [address] [place] [address]- Name: OLU GEORGE Member Role: Dentist Name: NICKIE COOK MD Member Role: Customer Experience Professional Address: Address: [address] [place] [address]- [place] Name: LIZZETTE SALES DO Position: P4 Physician - Primary Care Member Role: Primary Care Physician Address: Address: [address] [place] [address] Name: VINCENT CASTRO Member Role: Stripper Shovel Operator Care Team Related Persons Name: CHELSI HEARN Care Team Personnel Name: IVELISSE LISA MD Member Role: Pain Management Address: Address: [address] [place] [address]- Name: Santiago Carballo Clerk Joan PT Position: P3 Scheduling - Dishwasher Preparer Advanced Member Role: Other Name: SERAFIN AHUMADA MD Member Role: Sole Tier Address: Address: [facility] [address] [place] [id number]- Name: ROZINA JEFFERSON MD Member Role: Oncologist Address: Address: [address] [place] [address]- Name: OLU GEORGE Member Role: Dentist Name: NICKIE COOK MD Member Role: Customer Experience Professional Address: Address: [address] [place] [address]- Name: LIZZETTE SALES DO Position: P4 Physician - Primary Care Member Role: Primary Care Physician Address: Address: [address] [place] [address]- Name: VINCENT CASTRO Member Role: Stripper Shovel Operator Care Team Related Persons Name: CHELSI HEARN Care Team Personnel Name: IVELISSE LISA MD Member Role: Pain Management Address: Address: [address] [place] [address]- Name: [place], Hotel Superintendent Joan PT Position: P3 Scheduling - Dishwasher Preparer Advanced Member Role: Other Name: SERAFIN AHUMADA MD Member Role: Sole Tier Address: Address: [facility] [address] [place] [address]- Name: ROZINA JEFFERSON MD Member Role: Oncologist Address: Address: [address] [place] [address]- Name: OLU GEORGE Member Role: Dentist Name: NICKIE COOK MD Member Role: Customer Experience Professional Address: Address: [address] [place] [address]- [place] Name: LIZZETTE SALES DO Position: P4 Physician - Primary Care Member Role: Primary Care Physician Address: Address: [address] [place] [address] Name: VINCENT CASTRO Member Role: Stripper Shovel Operator Care Team Related Persons Name: CHELSI HEARN Care Team Personnel Name: IVELISSE LISA MD Member Role: Pain Management Address: Address: [place] [address]- Name: Santiago Carballorpatrick Laua PT Position: P3 Scheduling - Dishwasher Preparer Advanced Member Role: Other Name: SERAFIN AHUMADA MD Member Role: Sole Tier Address: Address: [facility] [address] [place] [address]- Name: ROZINA JEFFERSON MD Member Role: Oncologist Address: Address: [address] [place] [address]- Name: OLU GEORGE Member Role: Dentist Name: NICKIE COOK MD Member Role: Customer Experience Professional Address: Address: [address] [place] [address]- Name: LIZZETTE SALES DO Position: P4 Physician - Primary Care Member Role: Primary Care Physician Address: Address: [address] [place] [address]- Name: VINCENT CASTRO Member Role: Stripper Shovel Operator Care Team Related Persons Name: CHELSI HEARN Care Team Personnel Name: IVELISSE LISA MD Member Role: Pain Management Address: Address: [address] [place] [address]- Name: Santiago Carballo Clerk Joan PT Position: P3 Scheduling - Dishwasher Preparer Advanced Member Role: Other Name: SERAFIN AHUMADA MD Member Role: Sole Tier Address: Address: [facility] [address] [place] [address]- Name: ROZINA JEFFERSON MD Member Role: Oncologist Address: Address: [address] [place] [address]- Name: OLU GEORGE Member Role: Dentist Name: NICKIE COOK MD Member Role: Customer Experience Professional Address: Address: [address] [place] [address]- [place] Name: LIZZETTE SALES DO Position: P4 Physician - Primary Care Member Role: Primary Care Physician Address: Address: [address] [place] [address] Name: VINCENT CASTRO Member Role: Stripper Shovel Operator Care Team Related Persons Name: CHELSI HEARN Care Team Personnel Name: IVELISSE LISA MD Member Role: Pain Management Address: Address: [place] [address]- Name: Santiago Carballo Clerk Joan PT Position: P3 Scheduling - Dishwasher Preparer Advanced Member Role: Other Name: SERAFIN AHUMADA MD Member Role: Sole Tier Address: Address: [facility] [address] [place] [address]- Name: ROZINA JEFFERSON MD Member Role: Oncologist Address: Address: [address] [place] [address]- Name: OLU GEORGE Member Role: Dentist Name: NICKIE COOK MD Member Role: Customer Experience Professional Address: Address: [address] [place] [address]- Name: LIZZETTE SALES DO Position: P4 Physician - Primary Care Member Role: Primary Care Physician Address: Address: [address] [place] [address] Name: VINCENT CASTRO Member Role: Stripper Shovel Operator Care Team Related Persons Name: CHELSI HEARN Name: LIDIA CAMPOS Care Team Personnel Name: IVELISSE LISA MD Member Role: Pain Management Address: Address: [address] [place] [id number]- Name: Santiago Carballorpatrick Franco PT Position: P3 Scheduling - Dishwasher Preparer Advanced Member Role: Other Name: SERAFIN AHUMADA MD Member Role: Sole Tier Address: Address: [facility] [address] [place] [address]- Name: ROZINA JEFFERSON MD Member Role: Oncologist Address: Address: [address] [place] [address]- Name: OLU GEORGE Member Role: Dentist Name: NICKIE COOK MD Member Role: Customer Experience Professional Address: Address: [address] [place] [address]- Name: LIZZETTE SALES DO Position: P4 Physician - Primary Care Member Role: Primary Care Physician Address: Address: [address] [place] [address] Name: VINCENT CASTRO Member Role: Stripper Shovel Operator Care Team Related Persons Name: CHELSI HEARN Name: LIDIA CAMPOS Care Team Personnel Name: IVELISSE LISA MD Member Role: Pain Management Address: Address: [place] [id number]- Name: Santiago Carballorpatrick Franco PT Position: P3 Scheduling - Dishwasher Preparer Advanced Member Role: Other Name: SERAFIN AHUMADA MD Member Role: Sole Tier Address: Address: [facility] [place] [address]- Name: ROZINA JEFFERSON MD Member Role: Oncologist Address: Address: [address] [place] [address]- Name: OLU GEORGE Member Role: Dentist Name: NICKIE COOK MD Member Role: Customer Experience Professional Address: Address: [address] [place] [address]- Name: LIZZETTE SALES DO Position: P4 Physician - Primary Care Member Role: Primary Care Physician Address: Address: [address] [place] [address]- Name: VINCENT CASTRO Member Role: Stripper Shovel Operator Care Team Related Persons Name: CHELSI HEARN Name: BETH, LIDIA Care Team Personnel Name: IVELISSE LISA MD Member Role: Pain Management Address: Address: [address] [place] [address]- Name: Santiago Carballo PT Position: P3 Scheduling - Dishwasher Preparer Advanced Member Role: Other Name: SERAFIN AHUMADA MD Member Role: Sole Tier Address: Address: [facility] [address] [place] [address]- Name: ROZINA JEFFERSON MD Member Role: Oncologist Address: Address: [address] [place] [id number]- Name: OLU GEORGE Member Role: Dentist Name: NICKIE COOK MD Member Role: Customer Experience Professional Address: Address: [address] [place] [address]- Name: LIZZETTE SALES DO Position: P4 Physician - Primary Care Member Role: Primary Care Physician Address: Address: [address] [place] [id number] [place] [address] Name: VINCENT CASTRO Member Role: Stripper Shovel Operator Care Team Related Persons Name: CHELSI HEARN Name: LIDIA CAMPOS Care Team Personnel Name: IVELISSE LISA MD Member Role: Pain Management Address: Address: [address] [place] [id number]- Name: Santiago Carballo PT Position: P3 Scheduling - Dishwasher Preparer Advanced Member Role: Other Name: SERAFIN AHUMADA MD Member Role: Sole Tier Address: Address: [facility] [address] [place] [address]- Name: ROZINA JEFFERSON MD Member Role: Oncologist Address: Address: [address] [place] [address]- Name: OLU GEORGE Member Role: Dentist Name: NICKIE COOK MD Member Role: Customer Experience Professional Address: Address: [address] [place] [address]- Name: LIZZETTE SALES DO Position: P4 Physician - Primary Care Member Role: Primary Care Physician Address: Address: [address] [place] [address]- Name: VINCENT CASTRO Member Role: Stripper Shovel Operator Care Team Related Persons Name: CHELSI HEARN Name: LIDIA CMAPOS Care Team (unrecognized sect ion and content) Personnel Name: LIZZETTE SALES DO Address: Address: [address] [place] [address] Name: Santiago Carballo PT Care Team Personnel Name: IVELISSE LISA MD Member Role: Pain Management Address: Address: [address] [place] [address] Name: Santiago Carballorpatrick Franco PT Position: P3 Scheduling - Dishwasher Preparer Advanced Member Role: Other Name: LIZZETTE SALES DO Position: P4 Physician - Primary Care Med Service: Active Provider Member Role: Primary Care Physician Address: Address: [address] [place] [address] Care Team Related Persons Name: CHELSI HEARN Care Team Personnel Name: IVELISSE LISA MD Member Role: Pain Management Address: Address: [address] [place] [address] Name: Santiago Carballorpatrick Laua PT Position: P3 Scheduling - Dishwasher Preparer Advanced Member Role: Other Name: SERAFIN AHUMADA MD Member Role: Sole Tier Address: Address: [facility] [address] Name: OLU GEORGE Member Role: Dentist Name: LIZZETTE SALES DO Position: P4 Physician - Primary Care Member Role: Primary Care Physician Address: Address: [address] [place] [address] Name: VINCENT CASTRO Member Role: Stripper Shovel Operator Care Team Related Persons Name: CHELSI HEARN Care Team Personnel Name: IVELISSE LISA MD Member Role: Pain Management Address: Address: [address] [place] [address]- Name: Santiago Carballork Joan PT Position: P3 Scheduling - Dishwasher Preparer Advanced Member Role: Other Name: SERAFIN AHUMADA MD Member Role: Sole Tier Address: Address: [facility] [address] Name: OLU GEORGE Member Role: Dentist Name: LIZZETTE SALES DO Position: P4 Physician - Primary Care Member Role: Primary Care Physician Address: Address: [address] [place] [address] Name: VINCENT CASTRO Member Role: Stripper Shovel Operator Care Team Related Persons Name: CHELSI HEARN Care Team Personnel Name: IVELISSE LISA MD Member Role: Pain Management Address: Address: [address] Name: Santiago Carballork Joan PT Position: P3 Scheduling - Dishwasher Preparer Advanced Member Role: Other Name: SERAFIN AHUMADA MD Member Role: Sole Tier Address: Address: [facility] [address] Name: OLU GEORGE Member Role: Dentist Name: LIZZETTE SALES DO Position: P4 Physician - Primary Care Member Role: Primary Care Physician Address: Address: [address] [place] [address] Name: VINCENT CASTRO Member Role: Stripper Shovel Operator Care Team Related Persons Name: CHELSI HEARN Care Team Personnel Name: IVELISSE LISA MD Member Role: Pain Management Address: Address: [address] Name: Santiago Carballork Joan PT Position: P3 Scheduling - Dishwasher Preparer Advanced Member Role: Other Name: SERAFIN AHUMADA MD Member Role: Sole Tier Address: Address: [facility] [address] Name: OLU GEORGE Member Role: Dentist Name: LIZZETTE SALES DO Position: P4 Physician - Primary Care Member Role: Primary Care Physician Address: Address: [address] [place] [address] Name: VINCENT CASTRO Member Role: Stripper Shovel Operator Care Team Related Persons Name: CHELSI HEARN Care Team Personnel Name: IVELISSE LISA MD Member Role: Pain Management Address: Address: [address] [place] [address]- Name: Santiago Carballork Joan PT Position: P3 Scheduling - Dishwasher Preparer Advanced Member Role: Other Name: SERAFIN AHUMADA MD Member Role: Sole Tier Address: Address: [facility] [address] [place], [place] [address] Name: OLU GEORGE Member Role: Dentist Name: LIZZETTE SALES DO Position: P4 Physician - Primary Care Member Role: Primary Care Physician Address: Address: [address] [facility] [place], [place] [address] Name: VINCENT CASTRO Member Role: Stripper Shovel Operator Care Team Related Persons Name: CHELSI HEARN INFORMATION SOURCE (unrecogn ized section and content) DATE CREATED AUTHOR 12/22/2023 [facility] ([place]) DATE CREATED AUTHOR AUTHOR'S ORGANIZ ATION 04/01/2024 [facility] FOR RECORDS PERTAINING TO PATIENTS WHO [...] BE BASED ON THE PRIMARY CLINICAL RECORDS. [employer] provides no warranty or guarantee of the accuracy or completeness of information in this document.
--- NOTE | 2024-04-01 20:45 | RAD_ITS ---
INDICATION: confusoin r/o PNA EXAMINATION/TECHNIQUE: X-RAY - XR Chest 1 View COMPARISON: FINDINGS: LINES/DEVICES: None. LUNGS: No consolidation, edema or effusion. No pneumothorax. MEDIASTINUM AND CARDIOVASCULAR STRUCTURES: Cardiac silhouette not enlarged. Central airways and mediastinal contour are unremarkable. BONES AND SOFT TISSUES: Unremarkable. RAD/Chest 1 View (Portable) IMPRESSION: No radiographic evidence of acute cardiopulmonary disease. Electronically Signed: Matt Garvin DO at 22:28 EDT ,
[2024-04-01 20:55] LABS: ALB/GLOB Ratio 1.4 RATIO (0.9-2.4); AST(SGOT) 12 U/L (15-37); Alanine Aminotransfer ALT/SGPT 32 U/L (13-56); Albumin, Serum 3.7 g/dL (3.2-5.0); Alkaline Phosphatase 65 U/L (45-117); Anion Gap 11 (5-15); BUN 18 mg/dL (7-18); BUN/Creat Ratio 20.8 RATIO (10-20); Calcium,Total 8.6 mg/dL (8.5-10.1); Chloride 81 mmol/L (98-107); Creatinine, Serum 0.87 mg/dL (0.55-1.02); EST Glomerular Filtration Rate 66 mL/min (>60); Est Glom Filt Rate - Afr Amer 80 mL/min (>60); Estimated Creatinine Clearance 37.39 ml/min; Globulin 2.6 g/dL (2.2-4.2); Glucose 139 mg/dL (74-106); Lipase 56 U/L (13-75); Potassium 3.3 mmol/L (3.5-5.1); Protein, Total 6.3 g/dL (6.4-8.2); Sodium Level 120 mmol/L (136-145); Troponin-I HS 6 pg/mL (3.0-54.0)
[2024-04-01 21:48] VITALS: BP 116/90; PULSE 69; RESP 16; O2SAT 98
[2024-04-01 21:50] LABS: Bacteria 0 SEEN /hpf (None Seen); Mucous, Urine 0 SEEN /hpf (<or=2+); Red Blood Cells-Urine 0 SEEN /hpf (0-5); White Blood Cells 0 SEEN /hpf (0-5)
[2024-04-01 21:52] LABS: Color, Urine Straw (Yellow); Glucose, Dipstick Normal (Normal); Ketone-Dipstick Negative (Negative); Leukocyte Esterase-Dipstick Negative /ul (Negative); Nitrite-Dipstick Negative (Negative); Occult Blood-Urine 10 /ul (Negative); Protein-Dipstick Negative (Negative); Specific Gravity, Urine 1.005 (1.002-1.030); Urine Bilirubin Dipstick Negative (Negative); Urine Clarity Clear (Clear); Urine Urobilinogen Normal (Normal); Urine pH 6.5 (5.0 - 8.0)
--- NOTE | 2024-04-01 22:35 | HP.PCM.HOS_ITS ---
[facility] - General General Date of Admission: 04/01/24 Date of Service: 04/01/24 Chief Complaint: Nausea, Vomiting, Malaise and Confusion. HPI Narrative BOB MCKENNA, is a 84 F with a past medical history of essential hypertension; on losartan, hyperlipidemia, hypothyroidism, history of CLL with splenomegaly and retroperitoneal LAD; on zanubrutinib, chronic anemia, history of mitral valve prolapse, sciatica of the RLE, varicose veins of legs, history of vertigo, chronic constipation; on MiraLax, history of cholinesterase deficiency; discovered after patient underwent hysterectomy and did not wake up for ~6 hours, history of abdominal hysterectomy, history of appendectomy, history of umbilical hernia; s/p repair, history of stress incontinence, depression, osteoporosis; with history of lumbar compression fractures L2, L3 and L5; s/p kyphoplasty (2003), OA; with chronic low back pain and recent ER evaluation here on March 27, 2024 for pleuritic chest pain radiating into back, shoulder pain and dizziness with constipation and elevated blood pressure of 187/87 mmHg with a serum sodium of 132 mmol/L present on that admission who now re-presents to [facility] ER complaining of nausea, vomiting, malaise and confusion. Ms. Mckenna reports her symptoms began approximately one week prior to admission with the gradual-onset of progressively worsening nausea and vomiting with bilious emesis along with continued intermittent chest pain. She also admits to [id number] confusion and feeling dizzy with some slowed mentation and mild difficulty getting her words out. She was also recently evaluated by her PCP and was apparently thought to be developing dehydration so she went home and tried to increase her oral intake but was not able to do so because of continued nausea and vomiting so she decided to come in for further evaluation and treatment. She states she usually has 2 BM's per day but since she started zanubrutinib she has been severely constipated with abdominal distention and pain in addition to having no BM for the past week. She denies associated fever, chills, diarrhea, syncope or focal neurologic weakness. In the ER she was noted to have laboratory evidence of both Severe Acute Hyponatremia of 120 mmol/L and Hypokalemia of 3.3 mmol/L present on admission and Dehydration; evidenced by elevated BUN/creatinine ratio of 20.8 present on admission suspected to be due to Adverse Drug Reaction to zanubrutinib used to treat CLL compounded by clinical evidence of Metabolic Encephalopathy and she was then admitted to the PCU for ongoing care for a stay that is expected to extend beyond 2 midnights. [facility] Medical History Retroperitoneal lymphadenopathy Abdominal pain Depression Back pain Constipation Wears hearing aid Wears glasses Cancer Thyroid disease Walker as ambulation aid High cholesterol Non-smoker Leg cramps History of echocardiogram History of stress test Cardiology follow-up encounter Cholinesterase deficiency Encounter for education Anemia CLL (chronic lymphocytic leukemia) Hypothyroidism Vertigo Varicose veins of legs Supraclavicular mass Supraclavicular lymphadenopathy Skin lesion of face Skin lesion of neck Stress incontinence Psoriasis Osteoporosis Mitral valve prolapse Low back pain with right-sided sciatica Hyperlipidemia High blood pressure Hematuria Home Medications ?Medication ?Instructions ?Recorded ?Last Taken ?Type ascorbic acid (vitamin C) 100 mg 100 mg PO DAILY 08/14/22 10/20/23 History tablet calcium carbonate 600 mg PO BID 08/14/22 10/20/23 History cholecalciferol (vitamin D3) 10 10 mcg PO DAILY 08/14/22 10/20/23 History mcg (400 unit) capsule lutein 20 mg capsule 20 mg PO DAILY 08/14/22 10/20/23 History magnesium carbonate 1 cap PO DAILY 08/18/22 10/20/23 History polyethylene glycol 3350 17 4 g PO DAILY 02/23/23 10/20/23 History gram/dose oral powder (Miralax) psyllium husk 3.4 gram/5.4 gram 1 tbsp PO DAILY 02/23/23 10/20/23 History oral powder (Metamucil) mecobalamin (vitamin B12) 1,000 1,000 mcg PO Q OTHER DAY 03/01/23 10/20/23 History mcg lozenges levothyroxine 88 mcg capsule 88 mcg PO DAILY 06/01/23 10/20/23 History Disability Placard #1 ea 09/07/23 Unknown Rx zanubrutinib 80 mg capsule 320 mg PO BID 10/18/23 03/20/24 History ([place]) disability placard #1 ea 01/03/24 Unknown Rx losartan 50 mg tablet 50 mg PO QHS 01/03/24 Unknown History docusate sodium 100 mg capsule 100 mg PO BID 03/22/24 Unknown History (Colace) hydrocodone-acetaminophen 5-325mg 1 tab PO Q6H PRN PRN Pain 3 days 03/27/24 Unknown Rx 5mg-325mg #10 TABLETS Allergy/AdvReac Type Severity Reaction Status Date / Time No Known Allergies Allergy Verified 04/01/24 19:51 Family History Brother CAD (coronary artery disease) Cancer Hyperlipemia Mother Cancer Leukemia Sister Cancer Sarcoma Surgical History Hx of kyphoplasty S/P abdominal hysterectomy H/O umbilical hernia repair History of tonsillectomy S/P appendectomy Social History (Updated 04/02/24 @ 00:08 by Sachi Bass) household members: none housing: house Smoking Status: Never smoker alcohol intake: never substance use type: does not use ROS ROS Narrative Review of Systems; Constitutional: Patient admits to fatigue and malaise but she denies fever or chills. Eyes: Patient denies changes in vision or discharge from eyes. ENT: Patient denies runny nose, sore throat or ear pain. Resp: Patient admits to pleuritic chest pain as noted in HPI. denies palpitations or heart racing. CV: Patient admits to chest pain - but she denies palpitations or heart racing. GI: Patient admits to severe constipation with no BM for the past week along with intractable nausea and bilious emesis as noted above in HPI. : Patient denies dysuria or hematuria. MSK: Patient admits to severe myalgias but she denies arthralgias. Skin: Patient denies rash, abscess or jaundice. Psych: Patient denies symptoms of uncontrolled depression or anxiety. Neuro: Patient admits to occasional confusion and intermittent slowness in finding words. Allergy: Patient denies lip swelling, tongue swelling or urticaria. Hematology: Patient denies easy bleeding but she does admit to easy bruising since starting zanubrutinib. Endocrinology: Patient denies polyuria, polydipsia and polyphagia. 14 point ROS otherwise negative except for positives noted above in HPI. Vital Signs Vital Signs Vital Signs: 04/01/24 19:51 04/01/24 20:05 04/01/24 21:48 Temperature 98 F Temperature Source Oral Pulse Rate 72 69 Respiratory Rate 17 16 Respiratory Effort Normal Respiratory Pattern Normal Blood Pressure 125/71 H 116/90 H Blood Pressure Mean 89 98 Pulse Ox 98 98 Oxygen Delivery Method Room Air Room Air Weight Weight: 124 lb 4.8 oz Body Mass Index (BMI) 22.7 Physical Exam Const alert, oriented x3, no apparent distress and average body habitus General Appearance: cooperative Orientation / Consciousness: disoriented HEENT normocephalic, head/scalp atraumatic and hearing grossly normal bilaterally HEENT Narrative: Mucous membranes dry. Eyes PERRL and EOMs intact bilaterally Neck no lymphadenopathy and supple Resp normal respiratory effort, no retractions, no use of accessory muscles and clear to auscultation bilaterally Cardio regular rate and regular rhythm GI normal to inspection, nondistended, normoactive bowel sounds, soft to palpation, non-tender and non-distended Extremity normal to inspection, full ROM and no clubbing, cyanosis or edema Skin Skin Narrative: Patient has no evidence of jaundice, rash or abscess. Neuro oriented x3, CN's II-XII intact bilaterally, moves all extremities and no focal motor deficits Neuro Narrative: Slowed mentation with intermittent confusion. Sensorium / Orientation: awake, alert, oriented to person, oriented to place and oriented to time Speech: speech normal Psych affect normal Results Medical Records Data Attestation: I reviewed the patient's medical records Lab / Micro Data Attestation: I reviewed the patient's lab results. 04/02/24 02:27 04/02/24 02:27 Labs: Laboratory Results - last 24 hr 04/01/24 20:10: WBC 11.5 H, RBC 4.10 L, Hgb 12.3, Hct 34.5 L, MCV 84.1 D, MCH 30.0, MCHC 35.7 D, RDW Std Deviation 39.8, RDW Coeff of Bell 13.0, Plt Count 284, MPV 9.6, Sodium 120 L, Potassium 3.3 L, Chloride 81 L, Carbon Dioxide 28.0, Anion Gap 11, BUN 18, Creatinine 0.87, Estim Creat Clear Calc 37.39, Est GFR (MDRD) Af Amer 80, Est GFR (MDRD) Non-Af 66, BUN/Creatinine Ratio 20.8 H, G lucose 139 H, Calcium 8.6, Total Bilirubin 0.60, AST 12 L, ALT 32, Alkaline Phosphatase 65, Troponin I High Sens 6, Total Protein 6.3 L, Albumin 3.7, Globulin 2.6, Albumin/Globulin Ratio 1.4, Lipase 56 Micro: Microbiology 04/01/24 20:20 Mucosa - Nose SARS-CoV-2, Influenza & RSV (PCR) - Final Imaging Radiology Impression Brain CT 04/01/24 20:20 IMPRESSION: No acute findings. Microvascular ischemic changes. Mild atrophy. Electronically Signed: Esperanza Duckworth MD at 21:40 EDT Reading Location ID and State: [id number] / Tel , Service support , Abdomen/Pelvis CT 04/01/24 20:21 IMPRESSION: No acute findings in the abdomen or pelvis. Chronic compression fractures and degenerative changes of the lumbar spine. Electronically Signed: Esperanza Duckworth MD at 21:46 EDT Reading Location ID and State: [id number] / Tel , Service support , Chest X-Ray 04/01/24 20:45 IMPRESSION: No radiographic evidence of acute cardiopulmonary disease. Electronically Signed: Matt Garvin DO at 22:28 EDT , Assessment & Plan Assessment/Plan (1) Acute hyponatremia: (2) Hypokalemia: (3) Dehydration: (4) Adverse drug reaction: QUALIFIERS: Encounter type: initial encounter Qualified Code(s): T50.905A - Adverse effect of unspecified drugs, medicaments and biological substances, initial encounter (5) CLL (chronic lymphocytic leukemia): (6) Metabolic encephalopathy: (7) High blood pressure: QUALIFIERS: Hypertension type: unspecified Qualified Code(s): I10 - Essential (primary) hypertension (8) Hypothyroidism: QUALIFIERS: Hypothyroidism type: unspecified Qualified Code(s): E 03.9 - Hypothyroidism, unspecified PLAN: Plan 1. Severe Acute Hyponatremia of 120 mmol/L and Hypokalemia of 3.3 mmol/L present on admission - Admit to PCU. Continue NS IVF and recheck BMP q. ~6 hours to ensure rise of no more than 8-10 mmol/L per 24 hours. Check urine and serum osmolality. Give supplemental KCl and then recheck BMP in the AM to confirm correction. 2. Dehydration; evidenced by elevated BUN/creatinine ratio of 20.8 present on admission complicating #1 - Aggressively volume resuscitate and recheck renal indices daily to ensure improvement. 3. Adverse Drug Reaction to zanubritinib used to treat CLL precipitating #1 & #2 with intractable nausea and vomiting and constipation x 1 week (which are known common side effects of this agent) - Stop zanubritinib as the current side effects outweigh any potential benefit. Consider alternative agent once patient recovers from this adverse drug reaction. Start Protonix 40 mg IV daily plus give Zofran IV prn nausea and vomiting plus Phenergan IM prn for breakthrough nausea and vomiting. Administer Fleets enema x 1 to stimulate BM and then resume previous bowel regimen. 4. Metabolic Encephalopathy attributable to #1 - #3 - Continue supportive care outlined above and monitor for improvement. Minimize FIELD EDUCATION DIRECTOR-active medications. Check TSH, B12 and Folate levels to evaluate for potentially reversible causes of confusion. 5. Recent ER evaluation here on March 27, 2024 for pleuritic chest pain radiating into back, shoulder pain and dizziness with elevated blood pressure of 187/87 mmHg with a serum sodium of 132 mmol/L present on admission - Noted. 6. Essential hypertension; on losartan - Resume current regimen plus give IV Hydralazine prn for systolic blood pressure > 160 mmHg. 7. Hyperlipidemia - Continue statin as previous. 8. Hypothyroidism - Resume Synthroid and check TSH in light of #4. 9. Chronic anemia - Stable with hemoglobin of 12.3 g/dL present on admission. 10. History of mitral valve prolapse - Noted. 11. Sciatica of the RLE - Stable. 12. Varicose veins of legs - Stable. 13. History of vertigo - Noted. Give Antivert prn for breakthrough symptoms. 14. Chronic constipation; on MiraLax - Resume MiraLax as before. 15. History of cholinesterase deficiency; discovered after patient underwent hysterectomy and did not wake up for ~6 hours - Noted. 16. History of appendectomy - Noted. 17. History of umbilical hernia; s/p repair - Noted. 18. History of stress incontinence - Stable. 19. Depression - Stable with patient not currently on any psychotropic medications. 20. Osteoporosis; with history of lumbar compression fractures s/p kyphoplasty - Stable. 21. OA; with chronic low back pain - Give Tylenol prn. 22. DVT prophylaxis - Lovenox 40 mg sq daily plus SCD's. Total time: Approximately 75 minutes. Charges/Coding Visit Charges Inpatient E&M: 34622 Init Hosp L3
[2024-04-01 22:46] LABS: Squamous Epithelial Cells - UA 0-5 SEEN /hpf (5-10)
--- OUTSIDE RECORDS SUMMARY | 2024-04-01 22:51 | XMS RPT_ITS | CCD ---
Author Organization [facility] Inform ion [facility] Care Team Providers Care Shopper Name Role Phone Tacos Estes DO Unavailable LIZZETTE SALES DO Primary Care Physician Joan Carballo PT Unavailable Unavailable LIZZETTE SALES DO Primary Care Physician [phone] LIZZETTE SALES DO Attending Unavailable MÓNICA DO, LIZZETTE Primary Care Unavailable MÓNICA DO LIZZETTE Admitting Unavailable LU ENGLISH ADJUNCT FACULTY-SOCIAL SCIENCES CHAIRNURIS Attending Yana SALES DO, LIZZETTE Primary Care [...] MÓNICA DO, LIZZETTE Primary Care Unavailable KAREN ENGLISH ADJUNCT FACULTY-SOCIAL SCIENCES CHAIR, LEONARDO Attending Yana SALES DO, LIZZETTE Primary Care Unavailable MÓNICA DO, LIZZETTE Attending Unavailable MÓNICA DO, LIZZETTE Primary Care Unavailable KAREN ENGLISH ADJUNCT FACULTY-SOCIAL SCIENCES CHAIR, LEONARDO Attending Yana SALES DO, LIZZETTE Primary Care Unavailable MÓNICA DO, LIZZETTE Attending Unavailable MÓNICA DO, LIZZETTE Primary Care Unavailable RICHARDSON ENGLISH ADJUNCT FACULTY-SOCIAL SCIENCES CHAIRBENITO Attending Unavailyris SALES DO, LIZZETTE Primary Care Unavailable MÓNICA DURAN, LIZZETTE Attending Unavailable MÓNICA DURAN, LIZZETTE Primary Care Unavailable MÓNICA DURAN, LIZZETTE Primary Care Unavailable MÓNICA DURAN, LIZZETTE Attending Unavailable LU MONCADA, NURIS Florez Attending Yana SALES DO, LIZZETTE Primary Care [...] every six hours as needed for pain Wheatley 325- 5 mg oral tablet Dose = [...] oral solution (1 source) alpha-Adrenergic Agonist, Uncompetitive [id number]-[id number]-aspartat e Receptor Antagonist, Sigma-1 Agonist Start: 08-12-2022 End: 08-26-2022 take 1 dose by mouth four times daily as needed Bromfed DM oral syrup Dose = 5 mL, Oral, QID, PRN for cold symptoms, X 7 day(s), # 120 mL, 1 Refill(s), Pharmacy: [email or web address], Lab test positive for detection of [...] 0 Refill(s), 05/14/23 5:37:00 PM EST, Pharmacy: [email or web address], 158.5, cm, 10/23/22 9:40:00 EDT, Height, [...] constipation, # 60 cap(s), 5 Refill(s), Pharmacy: [email or web address], Constipation, 157, cm, 02/16/24 9:20:00 EDT, Height, kg, 02/16/24 9:20:00 EDT, Dosing Weight Start Date: 02/16/24 Status: Ordered hydroCHLOROthiazide 25 mg oral tablet (9 sources) Thiazide Diuretic Start: 10-29-2021 hydroCHLOROthiazide 25 mg oral tablet Dose : 25 mg = 1 tab(s), Oral, qDay, # 90 tab(s), 3 Refill(s), Pharmacy: [facility] ([facility], Hypertension High blood pressure, 159, cm, 10/29/21 7:54:00 EDT, Height, kg, 10/29/21 7:54:00 EDT, Dosing Weight Start Date: 10/29/21 Status: Ordered Start: 10-08-2020 hydroCHLOROthi azide 25 mg oral tablet Dose : 25 mg = 1 tab(s), Oral, qDay, # 90 tab(s), 3 Refill(s), Pharmacy: [facility] ([facility], Hypertension, 160, cm, 10/08/20 8:35:00 EDT, Height, kg, 10/08/20 8:35:00 EDT, Dosing Weight Start Date: 10/08/20 Status: Ordered levocetirizine dihydrochloride 5 mg oral tablet (2 sources) Histamine-1 Receptor Antagonist Start: 12-15-2023 Xyzal 5 mg oral tablet Dose : 5 mg = 1 tab(s), Oral, qHS, # 90 tab(s), 1 Refill(s), Pharmacy: [email or web address], Seasonal allergies, 157, cm, 12/14/23 11:20:00 EDT, Height, kg, 12/14/23 11:20:00 EDT, Dosing Weight Start Date: 12/15/23 Status: Ordered losartan potassium 50 mg oral tablet (20 sources) Angiotensin 2 Receptor Juan C Start: 02-16-2024 losartan 50 mg oral tablet Dose : 50 mg = 1 tab(s), Oral, qDay, # 90 tab(s), 1 Refill(s), Pharmacy: [facility] [place], High blood pressure High blood pressure, 157, cm, 02/16/24 9:20:00 EDT, Height, kg, 02/16/24 9:20:00 EDT, Dosing Weight Start Date: 02/16/24 Status: Ordered Start: 05-13-2023 losartan 50 mg oral tablet Dose : 50 mg = 1 tab(s), Oral, qDay, # 90 tab(s), 1 Refill(s), Pharmacy: [facility] [place], Hypertension High blood pressure, 157, cm, 11/03/23 8:52:00 EDT, Height, kg, 11/03/23 8:52:00 EDT, Dosing Weight Start Date: 11/09/23 Status: Ordered Start: 10-23-2022 losartan 50 mg oral tablet Dose : 50 mg = 1 tab(s), Oral, qDay, # 90 tab(s), 1 Refill(s), Pharmacy: [facility] [place], Hypertension High blood pressure, 158.5, cm, 10/23/22 [...] tab(s), 0 Refill(s), Pharmacy: [facility] [place], Hypertension High blood pressure, 160, cm, 08/28/22... Start Date: 08/28/22 Stop Date: 09/04/22 Status: Ordered Start: 08-03-2022 End: 08-10-2022 losartan 50 mg oral tablet D ose : 50 mg = 1 tab(s), Oral, BID, # 14 tab(s), 0 Refill(s), Pharmacy: [email or web address], Hypertension High blood pressure, 159.5, cm, 07/07/22 15:22:00 EST, Height, kg, 07/07/22 15:22:00 EST, Dosing Weight Start Date: 08/03/22 Stop Date: 08/10/22 Status: Ordered Start: 06-03-2022 losartan 50 mg oral tablet Dose : 50 mg = 1 tab(s), Oral, BID, Increased dosing, # 180 tab(s), 1 Refill(s), Pharmacy: [facility]) [place], Hypertension High blood pressure, 160, cm, 05/06/22 8:04:00 EST, Height, kg, 05/06/22 8:04:00 EST, Dosing Weight Start Date: 06/03/22 Status: Ordered Start: 10-29-2021 End: 05-26-2022 losartan 50 mg oral tablet D ose : 50 mg = 1 tab(s), Oral, qDay, # 14 tab(s), 0 Refill(s), Pharmacy: [email or web address], Hypertension High blood pressure, 160, cm, 05/06/22 8:04:00 EST, Height, kg, 05/06/22 8:04:00 EST, Dosing Weight Start Date: 05/12/22 Stop Date: 05/26/22 Status: Ordered Start: 10-08-2020 losartan 50 mg oral tablet Dose : 50 mg = 1 tab(s), Oral, qDay, # 90 tab(s), 3 Refill(s), Pharmacy: [facility] ([facility], Hypertension, 160, cm, 10/08/20 8:35:00 EDT, Height, kg, 10/08/20 8:35:00 EDT, Dosing Weight Start Date: 10/08/20 Status: Ordered Start: 10-05-2017 LOSARTAN POTAS SIUM 50 MG TABS once daily LOSARTAN POTASSIUM [id number] Scot D Estes DO lutein 20 mg [...] tab(s), 0 Refill(s), 05/07/21 9:18:00 EST, Pharmacy: [email or web address], Vertigo, 160.5, cm, 04/30/21 8:25:00 EST, Height, kg, 04/30/21 8:25:00 EST, Dosing Weight Start Date: 04/30/21 Stop Date: 05/07/21 Status: Ordered meloxicam 15 mg oral tablet (4 sources) Nonsteroidal Anti-inflammatory Drug Start: 09-15-2023 Mobic 15 mg oral tablet Dose : 15 mg = 1 tab(s), Oral, qDay, # 30 tab(s), 0 Refill(s), Pharmacy: [email or web address], 160, cm, 09/13/23 11:37:00 EDT, Height, kg, 09/13/23 11:37:00 EDT, Dosing Weight Start Date: 09/15/23 Status: Ordered Start: 10-05-2017 MELOXICAM 15 M G TABS once daily MELOXICAM [id number] [facility] ondansetron 4 mg disintegrating oral tablet (3 sources) Serotonin-3 Receptor Antagonist Start: 03-30-2024 End: 04-06-2024 ondansetron 4 mg oral tablet, disintegrating Dose : 4 mg = 1 tab(s), Oral, q8h, PRN as needed for nausea/vomiting, X 7 day(s), # 21 tab(s), 0 Refill(s), 04/06/24 12:31:00 PM EDT, Pharmacy: [email or web address], Nausea and vomiting, 157, cm, 03/30/24 [...] 0 Refill(s), 10/02/23 8:59:00 AM EDT, Pharmacy: [email or web address], Lumbar back pain, 159, cm, 09/22/23 [...] BID, # 10 tab(s), 0 Refill(s), Pharmacy: [email or web address], 157.6, cm, 02/23/22 13:57:00 EDT, Height, [...] immediately, # 90 tab(s), 1 Refill(s), Pharmacy: [facility] ([facility], Hypothyroid, 160, cm, 05/06/22 8:04:00 EST, Height Start Date: 05/13/22 Status: Ordered Start: 10-29-2021 End: 05-26-2022 levothyroxine 75 mcg (0.075 mg) oral tablet Dose : 75 mcg = 1 tab(s), Oral, qDay, # 14 tab(s), 0 Refill(s), Pharmacy: [email or web address], Hypothyroidism Hypothyroid, 160, cm, 05/06/22 8:04:00 EST, Height, kg, 05/06/22 8:04:00 EST, Dosing Weight Start Date: 05/12/22 Stop Date: 05/26/22 Status: Ordered Start: 10-31-2020 levothyroxine 75 mcg (0.075 mg) oral tablet Dose : 75 mcg = 1 tab(s), Oral, qDay, # 10 tab(s), 0 Refill(s), Pharmacy: [email or web address], Hypothyroidism, 160, cm, 10/08/20 8:35:00 EDT, Height, kg, 10/08/20 8:35:00 EDT, Dosing Weight Start Date: 10/31/20 Status: Ordered Start: 10-05-2017 LEVOTHYROXINE SODIUM 88 MCG TABS once daily LEVOTHYROXINE SODIUM [id number] [facility] tiZANidine 4 mg oral tablet (2 sources) Central alpha-2 Adrenergic Agonist Start: 03-28-2024 End: 04-04-2024 tiZANidine 4 mg oral tablet Dose : 4 mg = 1 tab(s), Oral, q6h, PRN as needed for muscle spasm, # 30 tab(s), 0 Refill(s), Pharmacy: [email or web address], Thoracic myofascial strain Radicular pain in right arm, 157, cm, 02/16/24 9:20:00 EDT, Height, kg, 02/16/24 9:20:00 EDT, Dosing Weight Start Date: 03/28/24 Stop Date: 04/04/24 Status: Ordered Start: 05-11-2023 End: 05-25-2023 tiZANidine 4 mg oral tablet Dose : 4 mg = 1 tab(s), Oral, qHS, PRN as needed for muscle spasm, # 14 tab(s), 0 Refill(s), Pharmacy: [email or web address], Thoracic myofascial strain Radicular pain in [...] tab(s), 0 Refill(s), 07/07/21 13:41:00 EST, Pharmacy: [email or web address], Acute right flank pain Hematuria, 159, cm, 07/02/21 13:11:00 EST, Height, 64.6, kg, 07/02/21 13:11:... Start Date: 07/02/21 Stop Date: 07/07/21 Status: Ordered traZODone hydrochloride 50 mg oral tablet (3 sources) Serotonin Reuptake Inhibitor Start: 02-16-2024 End: 08-14-2024 traZODone 50 mg oral tablet Dose : 50 mg = 1 tab(s), Oral, qHS, # 30 tab(s), 5 Refill(s), Pharmacy: [email or web address], Insomnia, 157, cm, 02/16/24 9:20:00 EDT, Height, kg, 02/16/24 9:20:00 EDT, Dosing Weight Start Date: 02/16/24 Stop Date: 08/14/24 Status: Ordered Start: 11-22-2023 End: 12-22-2023 traZODone 50 mg oral tablet Dose : 50 mg = 1 tab(s), Oral, qHS, # 30 tab(s), 0 Refill(s), Pharmacy: [email or web address], Insomnia, 157, cm, 11/22/23 7:28:00 EDT, [...] QID, # 56 cap(s), 0 Refill(s), Pharmacy: [email or web address], Abdominal bloating with cramps Constipation, 159, [...] 10-05-2017 POTASSIUM TABS once daily POTASSIUM TABS [id number] Tacos Estes raloxifene hydrochloride 60 mg oral tablet (1 source) Estrogen Agonist/Antagoni st Start: 10-05-2017 EVISTA 60 MG TABS once every other daily RALOXIFENE HCL [id number] Tacos Estse DO Problems Active Problems Problem Classification Problem [...] Range Facility .GFRon 03-30-2024 GFR 96 ml/min/1.73sqm [facility] Comment on above: Result Comment: GFR Population [...] C MP, CBC, GFR, MORPH, DIFF #### [address] [address] GFR Non- 80 ml/min/1.73sqm [facility] Comment on above: Result Comment: GFR Population [...] C MP, CBC, GFR, MORPH, DIFF #### [address] [address] .Manual Diffon 03-30-2024 Atypical Lymphs 4.0 % Normal 0.0-5.0 [facility] Comment on above: Performed By: #### C MP, CBC, GFR, MORPH, DIFF #### [address] [address] Bands 2.0 % Normal 0.0-5.0 [facility] Comment on above: Performed By: #### C MP, CBC, GFR, MORPH, DIFF #### [address] [address] Basophil %, Manual 0.0 % Normal 0.0-2.5 [facility] Comment on above: Performed By: #### C MP, CBC, GFR, MORPH, DIFF #### [address] [address] Basophil, Abs Manual 0.0 10 3/mcL Normal 0.0-0.2 [facility] Comment on above: Performed By: #### C MP, CBC, GFR, MORPH, DIFF #### [address] [address] Eosinophil %, Manual 0.0 % Normal 0.0-7.0 [facility] Comment on above: Performed By: #### C MP, CBC, GFR, MORPH, DIFF #### [address] [address] Eosinophil, Abs Manual 0.0 10 3/mcL Normal 0.0-0.7 [facility] Comment on above: Performed By: #### C MP, CBC, GFR, MORPH, DIFF #### [address] [address] Lymphocyte %, Manual 55.0 % High 20.0-40.0 [facility] Comment on above: Performed By: #### C MP, CBC, GFR, MORPH, DIFF #### [address] [address] Lymphocyte, Abs Manual 7.1 10 3/mcL High 0.9-4.3 [facility] Comment on above: Performed By: #### C MP, CBC, GFR, MORPH, DIFF #### [address] [address] Monocyte %, Manual 3.0 % Normal 2.0-13.0 [facility] Comment on above: Performed By: #### C MP, CBC, GFR, MORPH, DIFF #### [address] [address] Monocyte, Abs Manual 0.4 10 3/mcL Normal 0.1-1.4 [facility] Comment on above: Performed By: #### C MP, CBC, GFR, MORPH, DIFF #### [address] [address] Neutrophil %, Manual 36.0 % Low 50.0-75.0 [facility] Comment on above: Performed By: #### C MP, CBC, GFR, MORPH, DIFF #### [address] [address] Neutrophil, Abs Manual 4.9 10 3/mcL Normal 2.3-8.1 [facility] Comment on above: Performed By: #### C MP, CBC, GFR, MORPH, DIFF #### [address] [address] Nucleated RBC 0.0 /100 WBC Normal [facility] Comment on above: Performed By: #### C MP, CBC, GFR, MORPH, DIFF #### [address] [address] .Morphon 03-30-2024 Anisocytosis Ql (Bld) 1+ Normal [facility] Comment on above: Performed By: #### C MP, CBC, GFR, MORPH, DIFF #### [address] [address] Ovalocytes 1+ Normal [facility] Comment on above: Performed By: #### C MP, CBC, GFR, MORPH, DIFF #### [place] [address] Platelet Estimate Normal Normal [facility] Comment on above: Performed By: #### C MP, CBC, GFR, MORPH, DIFF #### [address] [address] CBCon 03-30-2024 Erythrocyte distribution width (RBC) [Ratio] 14.2 % Normal 11.5-15.5 [facility] Comment on above: Performed By: #### C MP, CBC, GFR, MORPH, DIFF #### [place] [address] Hematocrit (Bld) [Volume fraction] 38.6 % Normal 34.0-46.0 [facility] Comment on above: Performed By: #### C MP, CBC, GFR, MORPH, DIFF #### [place] [id number] Hgb 13.5 G/dL Normal 12.0-16.0 [facility] Comment on above: Performed By: #### C MP, CBC, GFR, MORPH, DIFF #### [place] [id number] MCH (RBC) [Entitic mass] 30.4 pg Normal 27.0-33.0 [facility] Comment on above: Performed By: #### C MP, CBC, GFR, MORPH, DIFF #### [place] [address] MCHC 35.1 G/dL Normal 32.0-36.0 [facility] Comment on above: Performed By: #### C MP, CBC, GFR, MORPH, DIFF #### [place] [id number] MCV (RBC) [Entitic vol] 86.8 fL Normal 80.0-99.0 [facility] Comment on above: Performed By: #### C MP, CBC, GFR, MORPH, DIFF #### [address] [address] Platelet 257 10 3/mcL Normal 150-450 [facility] Comment on above: Performed By: #### C MP, CBC, GFR, MORPH, DIFF #### [address] [address] Platelet mean volume (Bld) [Entitic vol] 7.7 fL Normal 6.6-10.5 [facility] Comment on above: Performed By: #### C MP, CBC, GFR, MORPH, DIFF #### [address] [address] RBC 4.44 10 6/mcL Normal 4.10-5.30 [facility] Comment on above: Performed By: #### C MP, CBC, GFR, MORPH, DIFF #### [address] [address] WBC 13.0 10 3/mcL High 4.5-10.8 [facility] Comment on above: Performed By: #### C MP, CBC, GFR, MORPH, DIFF #### [address] [address] CMPon 03-30-2024 Albumin Level 4.2 G/dL Normal 3.4-4.8 [facility] Comment on above: Performed By: #### C MP, CBC, GFR, MORPH, DIFF #### [address] [address] Albumin/Globulin [Mass ratio] 1.6 {ratio} Normal 1.1-2.5 [facility] Comment on above: Performed By: #### C MP, CBC, GFR, MORPH, DIFF #### [address] [address] ALP [Catalytic activity/Vol] 86 U/L Normal 40-135 [facility] Comment on above: Performed By: #### C MP, CBC, GFR, MORPH, DIFF #### [address] [address] ALT [Catalytic activity/Vol] 37 U/L Normal 14-59 [facility] Comment on above: Performed By: #### C MP, CBC, GFR, MORPH, DIFF #### [address] [address] AST [Catalytic activity/Vol] 36 U/L Normal 10-40 [facility] Comment on above: Performed By: #### C MP, CBC, GFR, MORPH, DIFF #### [address] [address] Bili Total 0.7 mg/dL Normal 0.2-1.0 [facility] Comment on above: Result Comment: Use of this assay is not recommended for patients undergoing treatment with eltrombopag due to the potential for falsely elevated results. Performed By: #### C MP, CBC, GFR, MORPH, DIFF #### [address] [address] BUN/Creatinine Ratio 14 ratio Normal 7-27 [facility] Comment on above: Performed By: #### C MP, CBC, GFR, MORPH, DIFF #### [address] [address] Calcium [Mass/Vol] 9.2 mg/dL Normal 8.4-10.2 [facility] Comment on above: Performed By: #### C MP, CBC, GFR, MORPH, DIFF #### [address] [address] Chloride [Moles/Vol] 79 mmol/L Low 98-107 [facility] Comment on above: Performed By: #### C MP, CBC, GFR, MORPH, DIFF #### [address] [address] CO2 [Moles/Vol] 28 mmol/L Normal 23-31 [facility] Comment on above: Performed By: #### C MP, CBC, GFR, MORPH, DIFF #### [address] [address] Creatinine [Mass/Vol] 0.70 mg/dL Normal 0.55-1.02 [facility] Comment on above: Result Comment: Test ing performed on Siemens Dimension EXL analyzer using a modified kinetic Katelin technique. Performed By: #### C MP, CBC, GFR, MORPH, DIFF #### [address] [address] Electrolyte Balance 8.0 mEq/L Normal 4.0-15.0 [facility] Comment on above: Performed By: #### C MP, CBC, GFR, MORPH, DIFF #### [address] [address] Globulin 2.7 G/dL Normal [facility] Comment on above: Performed By: #### C MP, CBC, GFR, MORPH, DIFF #### [address] [address] Glucose [Mass/Vol] 106 mg/dL Normal 83-110 [facility] Comment on above: Performed By: #### C MP, CBC, GFR, MORPH, DIFF #### [address] [address] Potassium [Moles/Vol] 4.4 mmol/L Normal 3.5-5.1 [facility] Comment on above: Performed By: #### C MP, CBC, GFR, MORPH, DIFF #### [address] [address] Sodium [Moles/Vol] 115 mmol/L Critically abnormal 136-145 [facility] Comment on above: Performed By: #### C MP, CBC, GFR, MORPH, DIFF #### [address] [address] Total Protein 6.9 G/dL Normal 6.4-8.2 [facility] Comment on above: Performed By: #### C MP, CBC, GFR, MORPH, DIFF #### [address] [address] Urea nitrogen [Mass/Vol] 10 mg/dL Normal 7-18 [facility] Comment on above: Performed By: #### C MP, CBC, GFR, MORPH, DIFF #### [address] [address] LABORATORYOrdered By: SYSTEM SYSTEM on 10-24-2024 Albumin [...] 02-14-2024 TSH Qn 1.32 m[IU]/L Normal 0.36-3.74 [facility] Comment on above: Performed By: #### T SHR #### [address] [address] .GFRon 12-16-2023 GFR 111 ml/min/1.73sqm Normal [facility] ([place]) Comment on above: Result Comment: GFR Population [...] L IPID, VIDH, CMP, TSH, GFR #### [address] [address] GFR Non- 92 ml/min/1.73sqm Normal [facility] ([place]) Comment on above: Result Comment: GFR Population [...] L IPID, VIDH, CMP, TSH, GFR #### [address] [address] CMPon 12-16-2023 Albumin Level 3.8 G/dL Normal 3.4-4.8 [facility] ([place]) Comment on above: Performed By: #### L IPID, VIDH, CMP, TSH, GFR #### [address] [address] Albumin/Globulin [Mass ratio] 1.5 {ratio} Normal 1.1-2.5 [facility] ([place]) Comment on above: Performed By: #### L IPID, VIDH, CMP, TSH, GFR #### [address] [address] ALP [Catalytic activity/Vol] 77 U/L Normal 40-135 [facility] ([place]) Comment on above: Performed By: #### L IPID, VIDH, CMP, TSH, GFR #### [address] [address] ALT [Catalytic activity/Vol] 21 U/L Normal 14-59 [facility] ([place]) Comment on above: Performed By: #### L IPID, VIDH, CMP, TSH, GFR #### [address] [address] AST [Catalytic activity/Vol] 12 U/L Normal 10-40 [facility] ([place]) Comment on above: Performed By: #### L IPID, VIDH, CMP, TSH, GFR #### [address] [address] Bili Total 0.4 mg/dL Normal 0.2-1.0 [facility] ([place]) Comment on above: Result Comment: Use of this assay is not recommended for patients undergoing treatment with eltrombopag due to the potential for falsely elevated results. Performed By: #### L IPID, VIDH, CMP, TSH, GFR #### [address] [address] BUN/Creatinine Ratio 18 ratio Normal 7-27 [facility] ([place]) Comment on above: Performed By: #### L IPID, VIDH, CMP, TSH, GFR #### [address] [address] Calcium [Mass/Vol] 9.7 mg/dL Normal 8.4-10.2 [facility] ([place]) Comment on above: Performed By: #### L IPID, VIDH, CMP, TSH, GFR #### [address] [address] Chloride [Moles/Vol] 100 mmol/L Normal 98-107 [facility] ([place]) Comment on above: Performed By: #### L IPID, VIDH, CMP, TSH, GFR #### [address] [address] CO2 [Moles/Vol] 30 mmol/L Normal 23-31 [facility] ([place]) Comment on above: Performed By: #### L IPID, VIDH, CMP, TSH, GFR #### [address] [address] Creatinine [Mass/Vol] 0.62 mg/dL Normal 0.55-1.02 [facility] ([place]) Comment on above: Performed By: #### L IPID, VIDH, CMP, TSH, GFR #### [address] [address] Electrolyte Balance 7.0 mEq/L Normal 4.0-15.0 [facility] ([place]) Comment on above: Performed By: #### L IPID, VIDH, CMP, TSH, GFR #### [address] [address] Globulin 2.6 G/dL Normal [facility] ([place]) Comment on above: Performed By: #### L IPID, VIDH, CMP, TSH, GFR #### [address] [address] Glucose [Mass/Vol] 90 mg/dL Normal 83-110 [facility] ([place]) Comment on above: Performed By: #### L IPID, VIDH, CMP, TSH, GFR #### [address] [address] Potassium [Moles/Vol] 4.8 mmol/L Normal 3.5-5.1 [facility] ([place]) Comment on above: Performed By: #### L IPID, VIDH, CMP, TSH, GFR #### [address] [address] Sodium [Moles/Vol] 137 mmol/L Normal 136-145 [facility] ([place]) Comment on above: Performed By: #### L IPID, VIDH, CMP, TSH, GFR #### [address] [address] Total Protein 6.4 G/dL Normal 6.4-8.2 [facility] ([place]) Comment on above: Performed By: #### L IPID, VIDH, CMP, TSH, GFR #### [address] [address] Urea nitrogen [Mass/Vol] 11 mg/dL Normal 7-18 [facility] ([place]) Comment on above: Performed By: #### L IPID, VIDH, CMP, TSH, GFR #### [address] [address] FT4on 12-16-2023 Free T4 [Mass/Vol] 1.72 ng/dL High 0.76-1.46 [facility] ([place]) Comment on above: Order Comment: Order ed by Discern Performed By: #### L IPID, VIDH, CMP, TSH, GFR #### [address] [address] LIPIDon 12-16-2023 Cholesterol [Mass/Vol] 211 mg/dL High 0-200 [facility] ([place]) Comment on above: Result Comment: Chol esterol Reference Interval: Less than 200 Desirable 200-239 Borderline high risk 240 and above High risk Performed By: #### L IPID, VIDH, CMP, TSH, GFR #### [address] [address] Cholesterol in HDL [Mass/Vol] 70 mg/dL High 40-60 [facility] ([place]) Comment on above: Performed By: #### L IPID, VIDH, CMP, TSH, GFR #### [address] [address] Cholesterol in LDL [Mass/Vol] 132 mg/dL High 0-130 [facility] ([place]) Comment on above: Performed By: #### L IPID, VIDH, CMP, TSH, GFR #### [address] [address] Triglyceride [Mass/Vol] 45 mg/dL Normal 0-150 [facility] ([place]) Comment on above: Result Comment: Trig lyceride Reference Interval: Less than 150 Normal 150-199 Borderline high risk 200-499 High risk 500 or higher Very high risk Performed By: #### L IPID, VIDH, CMP, TSH, GFR #### [place] [address] TSHRon 12-16-2023 TSH Qn 0.24 m[IU]/L Low 0.36-3.74 [facility] ([place]) Comment on above: Performed By: #### L IPID, VIDH, CMP, TSH, GFR #### [address] [address] VIDHon 12-16-2023 Vit. D 25-Hydroxy 72.7 ng/mL Normal [facility] ([place]) Comment on above: Result Comment: Inte rpretive Values Based on Total 25(OH) Vitamin D: Deficient <20 ng/mL Insufficient 20 - <30 ng/mL Sufficient 30-100 ng/mL Performed By: #### L IPID, VIDH, CMP, TSH, GFR #### [address] [address] No Panel Informationon 11-21 Culture Urine <10,000 cfu/ml. No Significant growth. Sensitivity not indicated. [facility] Work Phone: CT ABDOMEN/PELVIS W/CONTRAST on 11-09-2023 [...] 11/08/2023 3:25:32 PM Ordering Provider: LIZZETTE SALES [facility] ([place]) XR ABDOMEN APon 11-03-2023 XR ABDOMEN AP [...] 11/03/2023 10:51:20 AM Ordering Provider: LIZZETTE SALES [facility] ([place]) BD BONE DENSITY DEXA AXIAL S [facility] 10-13-2023 BD BONE DENSITY DEXA AXIAL [...] 10/13/2023 12:23:18 PM Ordering Provider: BENITO Nunez [facility] [facility] ([place]) .Auto Diffon 10-04-2023 Basophil, Absolute 0.1 10 3/mcL Normal 0.0-0.2 [facility] ([place]) Comment on above: Performed By: #### L IPID, VIDH, CMP, TSH, GFR #### [address] [address] Basophils/100 WBC (Bld) 1.2 % Normal 0.0-2.5 [facility] ([place]) Comment on above: Performed By: #### L IPID, VIDH, CMP, TSH, GFR #### [address] [address] Eosinophil, Absolute 0.1 10 3/mcL Normal 0.0-0.4 [facility] ([place]) Comment on above: Performed By: #### L IPID, VIDH, CMP, TSH, GFR #### [address] [address] Eosinophils/100 WBC (Bld) 0.5 % Normal 0.0-7.0 [facility] ([place]) Comment on above: Performed By: #### L IPID, VIDH, CMP, TSH, GFR #### [address] [address] Lymphocyte, Absolute 6.0 10 3/mcL High 0.8-3.9 [facility] ([place]) Comment on above: Performed By: #### L IPID, VIDH, CMP, TSH, GFR #### [address] [address] Lymphocytes/100 WBC (Bld) 58.6 % High 10.0-50.0 [facility] ([place]) Comment on above: Performed By: #### L IPID, VIDH, CMP, TSH, GFR #### [address] [address] Monocyte, Absolute 0.6 10 3/mcL Normal 0.2-1.0 [facility] ([place]) Comment on above: Performed By: #### L IPID, VIDH, CMP, TSH, GFR #### [address] [address] Monocytes/100 WBC (Bld) 6.1 % Normal 1.7-13.0 [facility] ([place]) Comment on above: Performed By: #### L IPID, VIDH, CMP, TSH, GFR #### [address] [address] Neutrophils/100 WBC (Bld) 33.6 % Low 37.0-80.0 [facility] ([place]) Comment on above: Performed By: #### L IPID, VIDH, CMP, TSH, GFR #### [address] [address] .GFRon 10-04-2023 GFR 113 ml/min/1.73sqm Normal [facility] ([place]) Comment on above: Result Comment: GFR Population [...] L IPID, VIDH, CMP, TSH, GFR #### [address] [address] GFR Non- 93 ml/min/1.73sqm Normal [facility] ([place]) Comment on above: Result Comment: GFR [...] L IPID, VIDH, CMP, TSH, GFR #### [place] [address] .MDWon 10-04-2023 Monocyte Distribution Width 20.45 High 0.00-20.00 [facility] ([place]) Comment on above: Result Comment: For adults in ED, MDW>20.0 may be associated with a higher risk of sepsis during the first 12hrs of hospital admission The predictive value of MDW for identifying sepsis in patients with hematological abnormalities has not been established Performed By: #### L IPID, VIDH, CMP, TSH, GFR #### [address] [address] .Manual Diffon 10-04-2023 Bands 1.0 % Normal 0.0-5.0 [facility] ([place] Comment on above: Performed By: #### L IPID, VIDH, CMP, TSH, GFR #### [address] [address] Basophil %, Manual 0.0 % Normal 0.0-2.5 [facility] ([place]) Comment on above: Performed By: #### L IPID, VIDH, CMP, TSH, GFR #### [address] [address] Basophil, Abs Manual 0.0 10 3/mcL Normal 0.0-0.2 [facility] ([place] Comment on above: Performed By: #### L IPID, VIDH, CMP, TSH, GFR #### [address] [address] Eosinophil %, Manual 0.0 % Normal 0.0-7.0 [facility] ([place] Comment on above: Performed By: #### L IPID, VIDH, CMP, TSH, GFR #### [address] [address] Eosinophil, Abs Manual 0.0 10 3/mcL Normal 0.0-0.4 [facility] ([place]) Comment on above: Performed By: #### L IPID, VIDH, CMP, TSH, GFR #### [address] [address] Lymphocyte %, Manual 63.0 % High 10.0-50.0 [facility] ([place]) Comment on above: Performed By: #### L IPID, VIDH, CMP, TSH, GFR #### [address] [address] Lymphocyte, Abs Manual 6.4 10 3/mcL High 0.8-3.9 [facility] ([place]) Comment on above: Performed By: #### L IPID, VIDH, CMP, TSH, GFR #### [address] [address] Monocyte %, Manual 3.0 % Normal 1.7-13.0 [facility] ([place]) Comment on above: Performed By: #### L IPID, VIDH, CMP, TSH, GFR #### [address] [address] Monocyte, Abs Manual 0.3 10 3/mcL Normal 0.2-1.0 [facility] ([place] Comment on above: Performed By: #### L IPID, VIDH, CMP, TSH, GFR #### [address] [address] Neutrophil %, Manual 33.0 % Low 37.0-80.0 [facility] ([place]) Comment on above: Performed By: #### L IPID, VIDH, CMP, TSH, GFR #### [place] [address] Neutrophil, Abs Manual 3.4 10 3/mcL Normal 2.9-6.2 [facility] ([place] Comment on above: Performed By: #### L IPID, VIDH, CMP, TSH, GFR #### [place] [address] Nucleated RBC 0.0 /100 WBC Normal [facility] ([place] Comment on above: Performed By: #### L IPID, VIDH, CMP, TSH, GFR #### [place] [address] .Morphon 10-04-2023 Platelet Estimate Normal Normal [facility]) Comment on above: Performed By: #### L IPID, VIDH, CMP, TSH, GFR #### [place] [address] .NEUABSon 10-04-2023 Neutrophil, Absolute 3.4 10 3/mcL Normal 2.9-6.2 [facility] ([place] Comment on above: Performed By: #### L IPID, VIDH, CMP, TSH, GFR #### [place] [address] CBCon 10-04-2023 Erythrocyte distribution width (RBC) [Ratio] 14.6 % High 11.5-14.5 [facility] ([place] Comment on above: Performed By: #### L IPID, VIDH, CMP, TSH, GFR #### [place] [address] Hematocrit (Bld) [Volume fraction] 34.9 % Low 37.0-47.0 [facility] ([place] Comment on above: Performed By: #### L IPID, VIDH, CMP, TSH, GFR #### [place] [address] Hgb 12.1 G/dL Normal 12.0-16.0 [facility] ([place] Comment on above: Performed By: #### L IPID, VIDH, CMP, TSH, GFR #### [address] [address] MCH (RBC) [Entitic mass] 30.2 pg Normal 27.0-31.2 [facility] ([place] Comment on above: Performed By: #### L IPID, VIDH, CMP, TSH, GFR #### [address] [address] MCHC 34.5 G/dL Normal 33.0-37.0 [facility] ([place] Comment on above: Performed By: #### L IPID, VIDH, CMP, TSH, GFR #### [address] [address] MCV (RBC) [Entitic vol] 87.5 fL Normal 80.0-94.0 [facility] ([place] Comment on above: Performed By: #### L IPID, VIDH, CMP, TSH, GFR #### [place] [address] Platelet 260 10 3/mcL Normal 130-400 [facility] ([place] Comment on above: Performed By: #### L IPID, VIDH, CMP, TSH, GFR #### [place] [address] Platelet mean volume (Bld) [Entitic vol] 8.0 fL Normal 7.4-10.4 [facility] ([place] Comment on above: Performed By: #### L IPID, VIDH, CMP, TSH, GFR #### [place] [id number] RBC 3.99 10 6/mcL Low 4.20-5.40 [facility] ([place] Comment on above: Performed By: #### L IPID, VIDH, CMP, TSH, GFR #### [place] [id number] WBC 10.2 10 3/mcL Normal 4.6-10.8 [facility] ([place] Comment on above: Performed By: #### L IPID, VIDH, CMP, TSH, GFR #### [address] [address] CMPon 10-04-2023 Albumin Level 4.0 G/dL Normal 3.4-4.8 [facility] ([place]) Comment on above: Performed By: #### L IPID, VIDH, CMP, TSH, GFR #### [address] [address] Albumin/Globulin [Mass ratio] 1.4 {ratio} Normal 1.1-2.5 [facility] ([place] Comment on above: Performed By: #### L IPID, VIDH, CMP, TSH, GFR #### [address] [address] ALP [Catalytic activity/Vol] 88 U/L Normal 40-135 [facility] ([place] Comment on above: Performed By: #### L IPID, VIDH, CMP, TSH, GFR #### [address] [address] ALT [Catalytic activity/Vol] 25 U/L Normal 14-59 [facility] ([place] Comment on above: Performed By: #### L IPID, VIDH, CMP, TSH, GFR #### [address] [address] AST [Catalytic activity/Vol] 21 U/L Normal 10-40 [facility] ([place] Comment on above: Performed By: #### L IPID, VIDH, CMP, TSH, GFR #### [address] [address] Bili Total 0.5 mg/dL Normal 0.2-1.0 [facility] ([place]) Comment on above: Result Comment: Use of this assay is not recommended for patients undergoing treatment with eltrombopag due to the potential for falsely elevated results. Performed By: #### L IPID, VIDH, CMP, TSH, GFR #### [address] [address] BUN/Creatinine Ratio 20 ratio Normal 7-27 [facility] ([place] Comment on above: Performed By: #### L IPID, VIDH, CMP, TSH, GFR #### [address] [address] Calcium [Mass/Vol] 9.2 mg/dL Normal 8.4-10.2 [facility] ([place]) Comment on above: Performed By: #### L IPID, VIDH, CMP, TSH, GFR #### [address] [address] Chloride [Moles/Vol] 98 mmol/L Normal 98-107 [facility] ([place] Comment on above: Performed By: #### L IPID, VIDH, CMP, TSH, GFR #### [place] [address] CO2 [Moles/Vol] 32 mmol/L High 23-31 [facility] ([place] Comment on above: Performed By: #### L IPID, VIDH, CMP, TSH, GFR #### [place] [address] Creatinine [Mass/Vol] 0.61 mg/dL Normal 0.55-1.02 [facility] ([place] Comment on above: Performed By: #### L IPID, VIDH, CMP, TSH, GFR #### [address] [address] Electrolyte Balance 7.0 mEq/L Normal 4.0-15.0 [facility] ([place] Comment on above: Performed By: #### L IPID, VIDH, CMP, TSH, GFR #### [address] [address] Globulin 2.9 G/dL Normal [facility] ([place] Comment on above: Performed By: #### L IPID, VIDH, CMP, TSH, GFR #### [place] [id number] Glucose [Mass/Vol] 85 mg/dL Normal 83-110 [facility] ([place]) Comment on above: Performed By: #### L IPID, VIDH, CMP, TSH, GFR #### [place] [address] Potassium [Moles/Vol] 4.0 mmol/L Normal 3.5-5.1 [facility] ([place] Comment on above: Performed By: #### L IPID, VIDH, CMP, TSH, GFR #### [place] [id number] [place], [place] [address] Sodium [Moles/Vol] 137 mmol/L Normal 136-145 [facility] ([place]) Comment on above: Performed By: #### L IPID, VIDH, CMP, TSH, GFR #### [address] [address] Total Protein 6.9 G/dL Normal 6.4-8.2 [facility] ([place] Comment on above: Performed By: #### L IPID, VIDH, CMP, TSH, GFR #### [place] [id number] [place], [place] [address] Urea nitrogen [Mass/Vol] 12 mg/dL Normal 7-18 [facility] ([place]) Comment on above: Performed By: #### L IPID, VIDH, CMP, TSH, GFR #### [address] [address] [address] ABD/PELVIS W/ IV CONTRAST ONLYon 10-04-2023 [...] 10/04/2023 12:06:02 PM Ordering Provider: LEONARDO Nunez [facility] ([place]) LABORATORYOrdered By: SYSTEM SYSTEM on 10-04-2023 Albumin [...] 10-04-2023 Lipase Level 25 U/L Normal 16-77 [facility] ([place] Comment on above: Performed By: #### L IPID, VIDH, CMP, TSH, GFR #### [address] [address] UAon 10-04-2023 Color (U) Yellow Normal [facility] ([place] Comment on above: Performed By: #### U A #### [address] [address] Glucose (U) [Mass/Vol] Negative Normal Negative [facility] ([place] Comment on above: Performed By: #### U A #### [address] [address] Ketones Ql (U) Negative Normal Negative [facility] ([place] Comment on above: Performed By: #### U A #### [address] [address] UA Appear Clear Normal Clear [facility] ([place] Comment on above: Performed By: #### U A #### [address] [address] UA Blood Trace Abnormal Negative [facility] ([place] Comment on above: Performed By: #### U A #### [address] [address] UA Leuk Est Negative Normal Negative [facility] ([place] Comment on above: Performed By: #### U A #### [address] [address] UA Nitrite Negative Normal Negative [facility] ([place] Comment on above: Performed By: #### U A #### [address] [address] UA pH 7.0 Normal 5.0 - 8.0 [facility] ([place] Comment on above: Performed By: #### U A #### [address] [address] UA Protein Negative Normal Negative [facility] ([place] Comment on above: Performed By: #### U A #### [place] [id number] UA Spec Grav 1.015 Normal 1.015-1.02 5 [facility] ([place] Comment on above: Performed By: #### U A #### [address] [address] UA Specimen Type Clean Catch Normal [facility] ([place] Comment on above: Performed By: #### U A #### [address] [address] UA Urobilinogen 0.2 E.U./dL Normal 0.2-1.0 [facility] ([place] Comment on above: Performed By: #### U A #### [address] [address] Urobilinogen (U) [Mass/Vol] Negative Normal Negative [facility] ([place] Comment on above: Performed By: #### U A #### [address] [address] .GFRon 09-28-2023 GFR 92 ml/min/1.73sqm Normal [facility] ([place] Comment on above: Result Comment: GFR Population [...] L IPID, VIDH, CMP, TSH, GFR #### [address] [address] GFR Non- 76 ml/min/1.73sqm Normal [facility] ([place] Comment on above: Result Comment: GFR Population [...] L IPID, VIDH, CMP, TSH, GFR #### [address] [address] BMPon 09-28-2023 BUN/Creatinine Ratio 14 ratio Normal 7-27 [facility] ([place] Comment on above: Performed By: #### B MP, TSH, GFR #### [address] [address] Calcium [Mass/Vol] 9.2 mg/dL Normal 8.4-10.2 [facility] ([place]) Comment on above: Performed By: #### B MP, TSH, GFR #### [address] [address] Chloride [Moles/Vol] 101 mmol/L Normal 98-107 [facility] ([place] Comment on above: Performed By: #### B MP, TSH, GFR #### [address] [address] CO2 [Moles/Vol] 30 mmol/L Normal 23-31 [facility] ([place] Comment on above: Performed By: #### B MP, TSH, GFR #### [address] [address] Creatinine [Mass/Vol] 0.73 mg/dL Normal 0.55-1.02 [facility] ([place] Comment on above: Performed By: #### B MP, TSH, GFR #### [address] [address] Electrolyte Balance 6.0 mEq/L Normal 4.0-15.0 [facility] ([place] Comment on above: Performed By: #### B MP, TSH, GFR #### [address] [address] Glucose [Mass/Vol] 91 mg/dL Normal 83-110 [facility] ([place]) Comment on above: Performed By: #### B MP, TSH, GFR #### [address] [address] Potassium [Moles/Vol] 4.8 mmol/L Normal 3.5-5.1 [facility] ([place] Comment on above: Performed By: #### B MP, TSH, GFR #### [address] [address] Sodium [Moles/Vol] 137 mmol/L Normal 136-145 [facility] ([place] Comment on above: Performed By: #### B MP, TSH, GFR #### [address] [address] Urea nitrogen [Mass/Vol] 10 mg/dL Normal 7-18 [facility] ([place] Comment on above: Performed By: #### B MP, TSH, GFR #### [facility] [address] [place], [place] [address] TSHon 09-28-2023 TSH Qn 0.45 m[IU]/L Normal 0.36-3.74 [facility] ([place] Comment on above: Performed By: #### B MP, TSH, GFR #### [facility] [address] [place], [place] [address] CT ABDOMEN/PELVIS W/O CONTRA STon 09-27-2023 CT [...] 09/27/2023 10:30:24 AM Ordering Provider: LEONARDO JONES [facility] ([place]) XR HIP 2-3 VIEWS LEFTon XR HIP 2-3 VIEWS LEFT ORIGINAL EXAMINATION: 2 XRAY VIEWS OF THE LEFT HIP 09/09/2023 3:31 pm COMPARISON: None. HISTORY: ORDERING SYSTEM PROVIDED HISTORY: Reason for Exam: L hip/lower back pain FINDINGS: No acute fracture or dislocation is identified. [id number] degenerative changes seen of the left hip. [...] 09/10/2023 3:52:33 PM Ordering Provider: GALE MARROQUIN [facility] ([place]) XR PELVIS 1 OR 2 VIEWSon XR [...] Sign Date: 09/10/2023 3:50:59 PM Ordering Provider: GLAE MARROQUIN [facility] ([place]) LABORATORYOrdered By: Anna Felix on 08-03-2023 Albumin DL <= 20 mg/L (U) [Mass/Vol] mcg/dL Invalid Interpretation Code AO ADM SS Albumin/Creatinine DL <= 20 mg/L (U) [Mass ratio] unable to calc Invalid Interpretation Code 0 - 30 AO Chemistry S Creatinine (U) [Mass/Vol] mg/dL Low 28.0 - 117.0 mg/dL AO ADM SS MALBRon 08-03-2023 U Creatinine <13.0 Low 28.0-117.0 [facility] ([place] Comment on above: Performed By: #### M ALBR #### [address] [address] U Microalb <130 Normal [facility] ([place]) Comment on above: Performed By: #### M ALBR #### [address] [address] U Ratio Alb/Cre unable to calc Normal 0-30 [facility] ([place]) Comment on above: Performed By: #### M ALBR #### [address] [address] .GFRon 05-13-2023 GFR Non- 63 ml/min/1.73sqm [facility] ([place]) Comment on above: Result Comment: GFR Population [...] L IPID, VIDH, CMP, TSH, GFR #### [address] [address] GFR 76 ml/min/1.73sqm Normal [facility] ([place] Comment on above: Result Comment: GFR Population [...] L IPID, VIDH, CMP, TSH, GFR #### [address] [address] CMPon 05-13-2023 Albumin Level 3.4 G/dL Normal 3.4-4.8 [facility] ([place] Comment on above: Performed By: #### L IPID, VIDH, CMP, TSH, GFR #### [address] [address] Albumin/Globulin [Mass ratio] 1.3 {ratio} Normal 1.1-2.5 [facility] ([place] Comment on above: Performed By: #### L IPID, VIDH, CMP, TSH, GFR #### [address] [address] ALP [Catalytic activity/Vol] 66 U/L Normal 40-135 [facility] ([place] Comment on above: Performed By: #### L IPID, VIDH, CMP, TSH, GFR #### [address] [address] ALT [Catalytic activity/Vol] 21 U/L Normal 14-59 [facility] ([place] Comment on above: Performed By: #### L IPID, VIDH, CMP, TSH, GFR #### [address] [address] AST [Catalytic activity/Vol] 23 U/L Normal 10-40 [facility] ([place] Comment on above: Performed By: #### L IPID, VIDH, CMP, TSH, GFR #### [address] [address] Bili Total 0.4 mg/dL Normal 0.2-1.0 [facility] ([place]) Comment on above: Result Comment: Use of this assay is not recommended for patients undergoing treatment with eltrombopag due to the potential for falsely elevated results. Performed By: #### L IPID, VIDH, CMP, TSH, GFR #### [address] [address] BUN/Creatinine Ratio 22 ratio Normal 7-27 [facility] ([place] Comment on above: Performed By: #### L IPID, VIDH, CMP, TSH, GFR #### [address] [address] Calcium [Mass/Vol] 8.9 mg/dL Normal 8.4-10.2 [facility] ([place]) Comment on above: Performed By: #### L IPID, VIDH, CMP, TSH, GFR #### [address] [address] Chloride [Moles/Vol] 99 mmol/L Normal 98-107 [facility] ([place] Comment on above: Performed By: #### L IPID, VIDH, CMP, TSH, GFR #### [address] [address] CO2 [Moles/Vol] 26 mmol/L Normal 23-31 [facility] ([place] Comment on above: Performed By: #### L IPID, VIDH, CMP, TSH, GFR #### [address] [address] Creatinine [Mass/Vol] 0.86 mg/dL Normal 0.55-1.02 [facility] ([place] Comment on above: Performed By: #### L IPID, VIDH, CMP, TSH, GFR #### [address] [address] Electrolyte Balance 8.0 mEq/L Normal 4.0-15.0 [facility] ([place] Comment on above: Performed By: #### L IPID, VIDH, CMP, TSH, GFR #### [address] [address] Globulin 2.7 G/dL Normal [facility] ([place] Comment on above: Performed By: #### L IPID, VIDH, CMP, TSH, GFR #### [address] [address] Glucose [Mass/Vol] 104 mg/dL Normal 83-110 [facility] ([place]) Comment on above: Performed By: #### L IPID, VIDH, CMP, TSH, GFR #### [address] [address] Potassium [Moles/Vol] 4.4 mmol/L Normal 3.5-5.1 [facility] ([place] Comment on above: Performed By: #### L IPID, VIDH, CMP, TSH, GFR #### [address] [address] Sodium [Moles/Vol] 133 mmol/L Low 136-145 [facility] ([place] Comment on above: Performed By: #### L IPID, VIDH, CMP, TSH, GFR #### [address] [address] Total Protein 6.1 G/dL Low 6.4-8.2 [facility] ([place] Comment on above: Performed By: #### L IPID, VIDH, CMP, TSH, GFR #### [address] [address] Urea nitrogen [Mass/Vol] 19 mg/dL High 7-18 [facility] ([place] Comment on above: Performed By: #### L IPID, VIDH, CMP, TSH, GFR #### [place] [id number] [place], [place] [address] LABORATORYOrdered By: SYSTEM SYSTEM on 05-13-2023 25-hydroxyvitamin [...] 05-13-2023 Cholesterol [Mass/Vol] 217 mg/dL High 0-200 [facility] ([place] Comment on above: Result Comment: Chol esterol Reference Interval: Less than 200 Desirable 200-239 Borderline high risk 240 and above High risk Performed By: #### L IPID, VIDH, CMP, TSH, GFR #### [address] [address] Cholesterol in HDL [Mass/Vol] 41 mg/dL Normal 40-60 [facility] ([place] Comment on above: Performed By: #### L IPID, VIDH, CMP, TSH, GFR #### [address] [address] Cholesterol in LDL [Mass/Vol] 156 mg/dL High 0-130 [facility] ([place] Comment on above: Performed By: #### L IPID, VIDH, CMP, TSH, GFR #### [address] [address] Triglyceride [Mass/Vol] 102 mg/dL Normal 0-150 [facility] ([place] Comment on above: Result Comment: Trig lyceride Reference Interval: Less than 150 Normal 150-199 Borderline high risk 200-499 High risk 500 or higher Very high risk Performed By: #### L IPID, VIDH, CMP, TSH, GFR #### [address] [address] TSHon 05-13-2023 TSH Qn 3.84 m[IU]/L High 0.36-3.74 [facility] ([place] Comment on above: Performed By: #### L IPID, VIDH, CMP, TSH, GFR #### [address] [address] VIDHon 05-13-2023 Vit. D 25-Hydroxy 69.7 ng/mL Normal [facility] ([place]) Comment on above: Result Comment: Inte rpretive Values Based on Total 25(OH) Vitamin D: Deficient <20 ng/mL Insufficient 20 - <30 ng/mL Sufficient 30-100 ng/mL Performed By: #### L IPID, VIDH, CMP, TSH, GFR #### [address] [address] .GFRon 05-08-2023 GFR 76 ml/min/1.73sqm Normal [facility] ([place]) Comment on above: Result Comment: GFR [...] L IPID, VIDH, CMP, TSH, GFR #### [address] [address] GFR Non- 63 ml/min/1.73sqm Normal [facility] ([place]) Comment on above: Result Comment: GFR [...] L IPID, VIDH, CMP, TSH, GFR #### [place] [address] .MDWon 05-08-2023 Monocyte Distribution Width 34.01 High 0.00-20.00 [facility] ([place] Comment on above: Result Comment: The predictive value of MDW for identifying sepsis in patients with hematological abnormalities has not been established Performed By: #### L IPID, VIDH, CMP, TSH, GFR #### [place] [address] .Manual Diffon 05-08-2023 Basophil %, Manual 1.0 % Normal 0.0-2.5 [facility] ([place]) Comment on above: Performed By: #### L IPID, VIDH, CMP, TSH, GFR #### [place] [address] Basophil, Abs Manual 0.4 10 3/mcL High 0.0-0.2 [facility] ([place] Comment on above: Performed By: #### L IPID, VIDH, CMP, TSH, GFR #### [place] [address] Eosinophil %, Manual 0.0 % Normal 0.0-7.0 [facility] ([place] Comment on above: Performed By: #### L IPID, VIDH, CMP, TSH, GFR #### [place] [address] Eosinophil, Abs Manual 0.0 10 3/mcL Normal 0.0-0.4 [facility] ([place] Comment on above: Performed By: #### L IPID, VIDH, CMP, TSH, GFR #### [address] [address] Lymphocyte %, Manual 92.0 % High 10.0-50.0 [facility] ([place] Comment on above: Performed By: #### L IPID, VIDH, CMP, TSH, GFR #### [address] [address] Lymphocyte, Abs Manual 35.8 10 3/mcL High 0.8-3.9 [facility] ([place] Comment on above: Performed By: #### L IPID, VIDH, CMP, TSH, GFR #### [address] [address] Monocyte %, Manual 1.0 % Low 1.7-13.0 [facility] ([place]) Comment on above: Performed By: #### L IPID, VIDH, CMP, TSH, GFR #### [address] [address] Monocyte, Abs Manual 0.4 10 3/mcL Normal 0.2-1.0 [facility] ([place]) Comment on above: Performed By: #### L IPID, VIDH, CMP, TSH, GFR #### [address] [address] Neutrophil %, Manual 6.0 % Low 37.0-80.0 [facility] ([place]) Comment on above: Performed By: #### L IPID, VIDH, CMP, TSH, GFR #### [address] [address] Neutrophil, Abs Manual 2.3 10 3/mcL Low 2.9-6.2 [facility] ([place]) Comment on above: Performed By: #### L IPID, VIDH, CMP, TSH, GFR #### [address] [address] Nucleated RBC 0.0 /100 WBC Normal [facility] ([place]) Comment on above: Performed By: #### L IPID, VIDH, CMP, TSH, GFR #### [place] [address] .Morphon 05-08-2023 Platelet Estimate Normal Normal [facility]) Comment on above: Performed By: #### L IPID, VIDH, CMP, TSH, GFR #### [place] [address] CBCon 05-08-2023 Erythrocyte distribution width (RBC) [Ratio] 15.7 % High 11.5-14.5 [facility] ([place]) Comment on above: Performed By: #### L IPID, VIDH, CMP, TSH, GFR #### [place] [address] Hematocrit (Bld) [Volume fraction] 32.2 % Low 37.0-47.0 [facility] ([place]) Comment on above: Performed By: #### L IPID, VIDH, CMP, TSH, GFR #### [place] [address] Hgb 10.5 G/dL Low 12.0-16.0 [facility] ([place]) Comment on above: Performed By: #### L IPID, VIDH, CMP, TSH, GFR #### [place] [address] MCH (RBC) [Entitic mass] 29.9 pg Normal 27.0-31.2 [facility] ([place]) Comment on above: Performed By: #### L IPID, VIDH, CMP, TSH, GFR #### [place] [address] MCHC 32.6 G/dL Low 33.0-37.0 [facility] ([place]) Comment on above: Performed By: #### L IPID, VIDH, CMP, TSH, GFR #### [place] [address] MCV (RBC) [Entitic vol] 91.6 fL Normal 80.0-94.0 [facility] ([place]) Comment on above: Performed By: #### L IPID, VIDH, CMP, TSH, GFR #### [address] [address] Platelet 333 10 3/mcL Normal 130-400 [facility] ([place]) Comment on above: Performed By: #### L IPID, VIDH, CMP, TSH, GFR #### [address] [address] Platelet mean volume (Bld) [Entitic vol] 7.5 fL Normal 7.4-10.4 [facility] ([place]) Comment on above: Performed By: #### L IPID, VIDH, CMP, TSH, GFR #### [address] [address] RBC 3.52 10 6/mcL Low 4.20-5.40 [facility] ([place]) Comment on above: Performed By: #### L IPID, VIDH, CMP, TSH, GFR #### [address] [address] WBC 38.9 10 3/mcL High 4.6-10.8 [facility] ([place]) Comment on above: Performed By: #### L IPID, VIDH, CMP, TSH, GFR #### [address] [address] CMPon 05-08-2023 Albumin Level 3.4 G/dL Normal 3.4-4.8 [facility] ([place]) Comment on above: Performed By: #### L IPID, VIDH, CMP, TSH, GFR #### [address] [address] Albumin/Globulin [Mass ratio] 1.1 {ratio} Normal 1.1-2.5 [facility] ([place]) Comment on above: Performed By: #### L IPID, VIDH, CMP, TSH, GFR #### [address] [address] ALP [Catalytic activity/Vol] 79 U/L Normal 40-135 [facility] ([place]) Comment on above: Performed By: #### L IPID, VIDH, CMP, TSH, GFR #### [address] [address] ALT [Catalytic activity/Vol] 21 U/L Normal 14-59 [facility] ([place]) Comment on above: Performed By: #### L IPID, VIDH, CMP, TSH, GFR #### [address] [address] AST [Catalytic activity/Vol] 17 U/L Normal 10-40 [facility] ([place]) Comment on above: Performed By: #### L IPID, VIDH, CMP, TSH, GFR #### [address] [address] Bili Total 0.3 mg/dL Normal 0.2-1.0 [facility] ([place]) Comment on above: Result Comment: Use of this assay is not recommended for patients undergoing treatment with eltrombopag due to the potential for falsely elevated results. Performed By: #### L IPID, VIDH, CMP, TSH, GFR #### [place] [id number] BUN/Creatinine Ratio 16 ratio Normal 7-27 [facility] ([place]) Comment on above: Performed By: #### L IPID, VIDH, CMP, TSH, GFR #### [address] [address] Calcium [Mass/Vol] 8.9 mg/dL Normal 8.4-10.2 [facility] ([place]) Comment on above: Performed By: #### L IPID, VIDH, CMP, TSH, GFR #### [address] [address] Chloride [Moles/Vol] 98 mmol/L Normal 98-107 [facility] ([place]) Comment on above: Performed By: #### L IPID, VIDH, CMP, TSH, GFR #### [address] [address] CO2 [Moles/Vol] 25 mmol/L Normal 23-31 [facility] ([place]) Comment on above: Performed By: #### L IPID, VIDH, CMP, TSH, GFR #### [address] [address] Creatinine [Mass/Vol] 0.86 mg/dL Normal 0.55-1.02 [facility] ([place]) Comment on above: Performed By: #### L IPID, VIDH, CMP, TSH, GFR #### [address] [address] Electrolyte Balance 9.0 mEq/L Normal 4.0-15.0 [facility] ([place]) Comment on above: Performed By: #### L IPID, VIDH, CMP, TSH, GFR #### [address] [address] Globulin 3.0 G/dL Normal [facility] ([place]) Comment on above: Performed By: #### L IPID, VIDH, CMP, TSH, GFR #### [address] [address] Glucose [Mass/Vol] 141 mg/dL High 83-110 [facility] ([place]) Comment on above: Performed By: #### L IPID, VIDH, CMP, TSH, GFR #### [address] [address] Potassium [Moles/Vol] 3.8 mmol/L Normal 3.5-5.1 [facility] ([place]) Comment on above: Performed By: #### L IPID, VIDH, CMP, TSH, GFR #### [address] [address] Sodium [Moles/Vol] 132 mmol/L Low 136-145 [facility] ([place]) Comment on above: Performed By: #### L IPID, VIDH, CMP, TSH, GFR #### [address] [address] Total Protein 6.4 G/dL Normal 6.4-8.2 [facility] ([place]) Comment on above: Performed By: #### L IPID, VIDH, CMP, TSH, GFR #### [address] [address] Urea nitrogen [Mass/Vol] 14 mg/dL Normal 7-18 [facility] Comment on above: Performed By: #### L IPID, VIDH, CMP, TSH, GFR #### [place] [id number] [place], [place] [address] CT ANGIOGRAPHY CHEST W/CONTR Ilsa 05-08-2023 CT [...] Reason for Exam: elevated d dimer FINDINGS: [id number] degenerative changes are noted in the spine. [...] PM Ordering Provider: CHANTAL Nunez [facility]) DIMERon 05-08-2023 D-Dimer 469 ng/mL D-DU High 0-230 [facility]) Comment on above: Result Comment: Resu lts [...] IPID, VIDH, CMP, TSH, GFR #### [place] [address] LABORATORYOrdered By: SYSTEM SYSTEM on 05-08-2023 Troponin [...] 05-08-2023 Magnesium [Mass/Vol] 1.9 mg/dL Normal 1.8-2.4 [facility] ([place]) Comment on above: Performed By: #### L IPID, VIDH, CMP, TSH, GFR #### [place] [address] PBNPon 05-08-2023 Natriuretic peptide B (Bld) [Mass/Vol] 608 pg/mL High 0-450 [facility] ([place]) Comment on above: Result Comment: NT-p roBNP results of less than 300 pg/mL effectively rules out acute congestive heart failure with 99% negative predictive value. Performed By: #### L IPID, VIDH, CMP, TSH, GFR #### [place] [id number] TROPHSon 05-08-2023 Troponin I High Sensitivity 5.5 ng/L Normal 0.0-51.4 [facility] ([place]) Comment on above: Performed By: #### T [facility] #### [place] [address] Troponin I High Sensitivity 5.6 ng/L Normal 0.0-51.4 [facility] ([place]) Comment on above: Performed By: #### L IPID, VIDH, CMP, TSH, GFR #### [place] [address] XR CHEST 1 VIEWon 05-08-2023 XR CHEST [...] 05/08/2023 11:11:05 AM Ordering Provider: CHANTAL ZAPIEN [facility] ([place]) No Panel Informationon 05-05 Culture Urine 50,000 - 100,000 cfu /ml Mixed growth consistent with normal urogenital giles. [facility] Work Phone: LABORATORYOrdered By: Steff Mccarthy on [...] definite cause of disease. Laboratories within the [place] and its territories are required to report all positive results to the appropriate public health authorities.Detection of analyte target(s) does not imply that the corresponding virus(es) are infectious or are the causative agents for clinical symptoms.There is a risk of false positive values resulting from cross-contamination by target organisms, their nucleic acids or amplified product, or from non-specific signals in the assay.[employer] SARS-CoV-2 Assay is a Real-Time reverse-transcriptase polymerase [...] Probable Contamination. Suggest recollection if clinically indicated. [facility] Work Phone: LABORATORYOrdered By: Steff Mccarthy on [...] HMSPatient IDon 10-05-2017 OOP Invalid Interpretation Code [facility] Work Phone: Clinical Summary: Scanned Hi story Summaryon 10-05-2017 Data entered by patient exercise frequency 2 days per week Invalid Interpretation Code [facility] Work Phone: Data entered by patient exercise type walking Invalid Interpretation Code [facility] Work Phone: data entered by patient, alcohol (ethanol or ETOH) use No Invalid Interpretation Code [facility] Work Phone: data entered by patient, drug (of abuse) use No Invalid Interpretation Code [facility] Work Phone: data entered by patient, Employer Name Retired Invalid Interpretation Code [facility] Work Phone: data entered by patient, exercise history Yes Invalid Interpretation Code [facility] Work Phone: Data entered by patient, history of past surgeries AppendectomyTonsillectomyHyste rectomy Invalid Interpretation Code [facility] Work Phone: data entered by patient, past medical history High blood pressureMitral valve prolapseOsteopenia Invalid Interpretation Code [facility] Work Phone: data entered by patient, social history, current smoker never smoker Invalid Interpretation Code [facility] Work Phone: data entered by patient, social history, marital status Invalid Interpretation Code [facility] Work Phone: father of patient is alive or Invalid Interpretation Code [facility] Work Phone: Housing Type: apartment, house, care home, trailer, none House Invalid Interpretation Code [facility] Work Phone: housing unit size (asthma environmental history, housing) (from single family to don't know) 2 Floors Invalid Interpretation Code [facility] Work Phone: mother of patient is alive or Invalid Interpretation Code [facility] Work Phone: Number of dependent children No Invalid Interpretation Code [facility] Work Phone: Clinical Summary: Marlyn Dick Summaryon 10-05-2017 endocrine ROS Denies Invalid Interpretation Code [facility] Work Phone: Gastrointestional review of systems, comment Hemorrhoids Invalid Interpretation Code [facility] Work Phone: genitourinary review of systems, E&M Denies Invalid Interpretation Code [facility] Work Phone: Lymphocytes Denies Invalid Interpretation Code [facility] Work Phone: Review of Systems Neurologic comment Numbness,Tingling,Loss Of Balance Invalid Interpretation Code [facility] Work Phone: ROS cardiovascular E&M Denies Invalid Interpretation Code [facility] Work Phone: ROS ENT E&M Denies Invalid Interpretation Code [facility] Work Phone: ROS gastrointestinal E&M Complains Invalid Interpretation Code [facility] Work Phone: ROS general E&M Denies Invalid Interpretation Code [facility] Work Phone: ROS musculoskeletal E&M Denies Invalid Interpretation Code [facility] Work Phone: ROS neurological E&M Complains Invalid Interpretation Code [facility] Work Phone: ROS Psych comment Difficulty Sleeping Invalid Interpretation Code [facility] Work Phone: ROS psychiatric E&M Complains Invalid Interpretation Code [facility] Work Phone: ROS pulmonary E&M Denies Invalid Interpretation Code [facility] Work Phone: ROS skin E&M Denies Invalid Interpretation Code [facility] Work Phone: Office Visit: New - 1st visi t with practice, Rm: 3on 10-05-2017 NEGATED: Highlighted rowDocumentation of current medications (procedure) Done Invalid Interpretation Code [facility] Work Phone: NEGATED: Highlighted rowTobacco smoking status NHIS Tobacco smoking status NHIS Invalid Interpretation Code [facility] Work Phone: Vital Signs Date Time Vital Sign Value Performing Clinician Facility 10-04-2023 13:09-0400 Blood Pressure Location LEONARDO REICHFIELD DO [facility] 10-04-2023 13:09-0400 Blood Pressure Method LEONARDO REICHFIELD DO [facility] 10-04-2023 13:09-0400 Diastolic Blood Pressure Non-Invasive 68 mm[Hg] LEONARDO REICHFIELD DO [facility] 10-04-2023 13:09-0400 Heart rate 82 /min LEONARDO REICHFIELD DO [facility] 10-04-2023 13:09-0400 Respiratory rate 18 /min LEONARDO REICHFIELD DO [facility] 10-04-2023 13:09-0400 Systolic Blood Pressure Non-Invasive 143 mm[Hg] LEONARDO REICHFIELD DO [facility] 10-04-2023 10:15-0400 Blood Pressure Location LEONARDO REICHFIELD DO [facility] 10-04-2023 10:15-0400 Blood Pressure Method LEONARDO REICHFIELD DO [facility] 10-04-2023 10:15-0400 Body temperature 98.06 [degF] LEONARDO REICHFIELD DO [facility] 10-04-2023 10:15-0400 Diastolic Blood Pressure Non-Invasive 67 mm[Hg] [facility] 10-04-2023 10:15-0400 Heart rate 84 /min [facility] DO [facility] 10-04-2023 10:15-0400 Respiratory rate 18 /min [facility] DO [facility] 10-04-2023 10:15-0400 Systolic Blood Pressure Non-Invasive 153 mm[Hg] [facility] DO [facility] 09-21-2023 09:46-0400 Blood Pressure Location GOKUL REYES MD [facility] 09-21-2023 09:46-0400 Blood Pressure Method GOKUL REYES MD [facility] 09-21-2023 09:46-0400 Body temperature 98.24 [degF] GOKUL REYES MD [facility] 09-21-2023 09:46-0400 Diastolic Blood Pressure Non-Invasive 62 mm[Hg] GOKUL REYES MD [facility] 09-21-2023 09:46-0400 Heart rate 72 /min GOKUL REYES MD [facility] 09-21-2023 09:46-0400 Respiratory rate 18 /min GOKUL REYES MD [facility] 09-21-2023 09:46-0400 Systolic Blood Pressure Non-Invasive 152 mm[Hg] GOKUL REYES MD [facility] 05-08-2023 13:30-0500 Diastolic Blood Pressure Non-Invasive 75 mm[Hg] DR CHANTAL ZAPIEN MD [facility] 05-08-2023 13:30-0500 Heart rate 81 /min DR CHANTAL ZAPIEN MD [facility] 05-08-2023 13:30-0500 Respiratory rate 14 /min DR CHANTAL ZAPIEN MD [facility] 05-08-2023 13:30-0500 Systolic Blood Pressure Non-Invasive 177 mm[Hg] DR CHANTAL ZAPIEN MD [facility] 05-08-2023 12:42-0500 Diastolic Blood Pressure Non-Invasive 77 mm[Hg] DR CHANTAL ZAPIEN MD [facility] 05-08-2023 12:42-0500 Heart rate 91 /min DR CHANTAL ZAPIEN MD [facility] 05-08-2023 12:42-0500 Systolic Blood Pressure Non-Invasive 177 mm[Hg] DR HCANTAL ZAPIEN MD [facility] 05-08-2023 10:45-0500 Diastolic Blood Pressure Non-Invasive 64 mm[Hg] DR CHANTAL ZAPIEN MD [facility] 05-08-2023 10:45-0500 Heart rate 77 /min DR CHANTAL ZAPIEN MD [facility] 05-08-2023 10:45-0500 Systolic Blood Pressure Non-Invasive 134 mm[Hg] DR CHANTAL ZAPIEN MD [facility] 05-08-2023 10:15-0500 Heart rate 77 /min DR CHANTAL ZAPIEN MD [facility] 05-08-2023 09:06-0500 Body temperature 97.7 [degF] DR CHANTAL ZAPIEN MD [facility] 05-08-2023 09:06-0500 Body weight 59.[address] CHANTAL ZAPIEN MD [facility] 05-08-2023 09:06-0500 Respiratory rate 22 /min DR CHANTAL ZAPIEN MD [facility] NEGATED: Highlighted [id number] 11:06-0400 BMI (Body Mass Index) 24.12 kg/m2 Sophie Winklestine CHANNEL WORKER [facility] Work Phone: NEGATED: Highlighted [id number] 11:06-0400 BP Diastolic 85 mm[Hg] Sophie Winklestine CHANNEL WORKER [facility] Work Phone: NEGATED: Highlighted [id number] 11:06-0400 BP Diastolic 83 mm[Hg] Sophie Winklestine CHANNEL WORKER [facility] Work Phone: NEGATED: Highlighted [id number] 11:06-0400 BP Systolic 152 mm[Hg] Sophie Winklestine CHANNEL WORKER [facility] Work Phone: NEGATED: Highlighted [id number] 11:06-0400 BP Systolic 169 mm[Hg] Sophie Winklestine CHANNEL WORKER [facility] Work Phone: NEGATED: Highlighted [id number] 11:06-0400 Height 162.56 cm Sophie Winklestine CHANNEL WORKER [facility] Work Phone: NEGATED: Highlighted [id number] 11:06-0400 Height 163 cm Sophie Winklestine CHANNEL WORKER [facility] Work Phone: NEGATED: Highlighted [id number] 11:06-0400 Pulse (Heart Rate) 74 /min Sophie Winklestine CHANNEL WORKER [facility] Work Phone: NEGATED: Highlighted [id number] 11:040 Weight 63.5 kg Sophie Durham LPN [facility] Work Phone: NEGATED: Highlighted [id number] 11:040 Weight 64 kg Sophie Durham LPN [facility] Work Phone: Encounters Encounter Date Encounter Type Care Provider Facility Start: 03-30-2024 End: 03-30-2024 ambulatory NURIS L LEIGH ENGLISH ADJUNCT FACULTY[employer]IAL SCIENCES CHAIR Facility:[facility] Start: 03-30-2024 End: 03-30-2024 Patient encounter procedure NURIS LEIGH ENGLISH ADJUNCT FACULTY-SOCIAL SCIENCES CHAIR [facility] Start: 02-14-2024 End: 02-14-2024 ambulatory LIZZETTE MÓNICA DO Facility:[facility] Start: 02-14-2024 End: 02-14-2024 Patient encounter procedure LIZZETTE LYNCHLAY DO [facility] Start: 12-16-2023 End: 12-16-2023 ambulatory LIZZETTE MÓNICA DO Facility:[facility] Start: 11-22-2023 End: 11-26-2023 ambulatory NURIS L LEIGH ENGLISH ADJUNCT FACULTY-SOCIAL SCIENCES CHAIR Facility:[facility] Start: 11-22-2023 End: 11-26-2023 Outreach Lab NURIS LEIGH ENGLISH ADJUNCT FACULTY-SOCIAL SCIENCES CHAIR [facility] Start: 11-08-2023 End: 11-08-2023 ambulatory LIZZETTE MÓNICA DO Facility:[facility] Start: 11-08-2023 End: 11-08-2023 Patient encounter procedure LIZZETTE MÓNICA DO [facility] Start: 11-03-2023 End: 11-03-2023 ambulatory LIZZETTE MÓNICA DO Facility:[facility] Start: 11-03-2023 End: 11-03-2023 Patient encounter procedure LIZZETTE MÓNICA DO [facility] Start: 10-13-2023 End: 10-13-2023 ambulatory BENITO RICHARDSON ENGLISH [employer]CT FAC[employer]SOC[employer] SCIENCES CHAIR Facility:[facility] Start: 10-04-2023 End: 10-04-2023 Emergency department patient visit LEONARDO HOWE DO [facility] Start: 09-30-2023 ambulatory LIZZETTE SALES DO Facil ity:[facility] Start: 09-28-2023 End: 09-28-2023 ambulatory LIZZETTE SALES DO Facility:[facility] Start: 09-24-2023 End: 09-24-2023 ambulatory LEONARDO KAREN ENGLISH ADJUNCT FACULTY-SOCIAL SCIENCES CHAIR Facility:[facility] Start: 09-24-2023 End: 09-24-2023 Patient encounter procedure LEONARDO KAREN ENGLISH [employer] FAC[employer]SOCIAL SCIENCES CHAIR [facility] Start: 09-21-2023 End: 09-21-2023 Emergency department patient visit GOKUL REYES MD [facility] Start: 09-13-2023 End: 09-17-2023 ambulatory LEONARDO KAREN ENGLISH [employer]CT FAC[employer]SOCIAL SCIENCES CHAIR Facility:[facility] Start: 09-09-2023 End: 09-09-2023 ambulatory GALE VACCARELLI PA-C Facility:[facility] Start: 09-09-2023 End: 09-09-2023 Patient encounter procedure GALE VACCARELLI PA-C [facility] Start: 08-03-2023 End: 08-07-2023 ambulatory LIZZETTE SALES DO Facility:[facility] Start: 08-03-2023 End: 08-07-2023 Outreach Lab LIZZETTE SALES DO [facility] Start: 05-13-2023 End: 05-13-2023 ambulatory LIZZETTE SLAES DO Facility:[facility] Start: 05-13-2023 End: 05-13-2023 Patient encounter procedure LIZZETTE SALES DO [facility] Start: 05-08-2023 End: 05-08-2023 Emergency department patient visit DR CHANTAL ZAPIEN MD [facility] Start: 05-04-2023 End: 05-08-[address] CHELI BARRIGA DO Facility:[facility] Start: 05-04-2023 End: 05-08-[address] CHELI BARRIGA DO [facility] Start: 08-28-2022 End: 09-01-2022 Outreach Lab LIZZETTE SALES DO [facility] Start: 08-13-2022 End: 08-13-2022 Patient encounter procedure LIZZETTE SALES DO [facility] Start: 08-05-2022 End: 08-09-2022 Outreach Lab LIZZETTE SALES DO [facility] Start: 07-17-2022 End: 07-17-2022 Patient encounter procedure LIZZETTE SALES DO [facility] Start: 07-07-2022 End: 07-07-2022 Patient encounter procedure LIZZETTE SALES DO [facility] Start: 05-12-2022 End: 05-12-2022 Patient encounter procedure LIZZETTE SALES DO [facility] Start: 02-24-2022 End: 02-24-2022 Patient encounter procedure JOSE NOGUEIRA ENGLISH ADJUNCT FACULTY-SOCIAL SCIENCES CHAIR [facility] Start: 11-25-2021 End: 11-25-2021 Patient encounter procedure LIZZETTE SALES DO [facility] Start: 10-29-2021 End: 10-29-2021 Patient encounter procedure LIZZETTE SALES DO [facility] Start: 07-04-2021 End: 07-04-2021 Patient encounter procedure LIZZETTE SALES DO [facility] Start: 07-02-2021 End: 07-06-2021 Outreach Lab LIZZETTE Monreal MÓNICA DO [facility] Start: 06-03-2021 End: 06-03-2021 Patient encounter procedure RAZIA STRONG DO [facility] Start: 05-12-2021 End: 05-12-2021 Patient encounter procedure LIZZETTE SALES DO [facility] Start: 05-06-2021 End: 05-06-2021 Patient encounter procedure LIZZETTE SALES DO [facility] Procedures Date Procedure Procedure Detail [...] Detail Author Patient Education \[email or web address]\[email or web address]_ PtEducation\htn .pdf [facility] Work Phone: Immunizations Immunization Date Immunization Notes Care Provider [facility] 05-06-2021 COVID-19, mRNA, LNP- S, PF, 100 mcg/ 0.5 mL dose; Translations: [Moderna COVID-19 Vaccine] LIZZETTE SALES DO [facility] 09-25-2020 zoster vaccine recombinant LIZZETTE SALES DO [facility] 08-13-2020 COVID-19, mRNA, LNP- S, PF, 100 mcg/ 0.5 mL dose; Translations: [Moderna COVID-19 Vaccine] LIZZETTE SALES DO [facility] 07-16-2020 COVID-19, mRNA, LNP- S, PF, 100 mcg/ 0.5 mL dose; Translations: [Moderna COVID-19 Vaccine] LIZZETTE SALES DO [facility] [facility] 04-19-2020 zoster vaccine recombinant LIZZETTE SALES DO [facility] 04-19-2020 zoster vaccine, live LIZZETTE SALES DO [facility] Comment on above: Result Comment: [] Shingrix 07-09-2015 pneumococcal conjuga te vaccine, 13 valent LIZZETTE SALES DO [facility] 12-07-2013 tetanus toxoid, redu xiao diphtheria toxoid, and acellular pertussis vaccine, adsorbed LIZZETTE SALES DO [facility] 08-02-2013 pneumococcal polysaccharide vaccine, 23 valent LIZZETTE SALES DO [facility] 12-15-2012 zoster vaccine, live LIZZETTE SALES DO [facility] 07-01-2009 hepatitis A and hepatitis B vaccine LIZZETTE SALES DO [facility] 05-21-2009 adenovirus, type 4 a nd type 7, live, oral LIZZETTE SALES DO [facility] 05-21-2009 hepatitis A vaccine, adult dosage LIZZETTE SALES DO [facility] 05-21-2009 hepatitis B vaccine, adult dosage LIZZETTE FAYEY DO [facility] No information available. Sophie Durham LPN [facility] Work Phone: Payers Date Payer Category Payer Unknown [id number] 1940 Unknown [id number] 2.16.8 40.1.072100.3.579.2.62 1940 Unknown [id number] 2.16.8 40.1.959258.3.579.2.62 1940 Unknown [id number] 2.16.8 40.1.707574.3.579.2.62 1939 Unknown [id number] 2.16.8 40.1.074406.3.579.2.62 1939 Unknown [id number] 2.16.8 40.1.969829.3.579.2.62 1939 Unknown [id number] 2.16.8 40.1.535504.3.579.2. 1939 Unknown [id number] 2.16.8 40.1.856010.3.579.2. 1939 Unknown [id number] 2.16.8 40.1.454882.3.579.2.62 1939 Unknown [id number] 2.16.8 40.1.716273.3.579.2. 1939 Unknown [id number] 2.16.8 40.1.955069.3.579.2.62 1939 Unknown [id number] 2.16.8 40.1.497543.3.579.2.62 1939 Unknown [id number] 2.16.8 40.1.371745.3.579.2.62 1939 Unknown [id number] 2.16.8 40.1.102683.3.579.2. 1939 Unknown [id number] 2.16.8 40.1.500734.3.579.2.62 1939 Unknown [id number] 2.16.8 40.1.137815.3.579.2627 1939 Unknown [id number] 2.16.8 40.1.036513.3.579.2.627 1939 Unknown [id number] 2.16.8 40.1.488757.3.579.2.627 1940 Unknown [id number] 2.16.8 40.1.564359.3.579.2.627 Social History Date Type Detail Facility Start: 04-09-2020 Never smoked t obacco (finding) [facility] Sex Assigned At Female [facility] NEGATED: Highlighted rowStart: 10-05-2017 End: 10-05-2017 Alcohol use ETOH USE No [facility] Work Phone: NEGATED: Highlighted rowStart: 10-05-2017 End: 10-05-2017 Details of drug misuse behavior DRUG USE No [facility] Work Phone: NEGATED: Highlighted rowStart: 10-05-2017 End: 10-05-2017 How many days of moderate to strenuous exercise, like a brisk walk, did you do in the last 7 days? EXERCISEFREQ 2 days per week [facility] Work Phone: NEGATED: Highlighted rowStart: 10-05-2017 End: 10-05-2017 Assertion Never smoker [facility] Work Phone: Functional Status Date Assessment Result Facility 10-04-2023 Functional Status Independent [facility] 10-04-2023 Functional Status ID band on, Call device within reach, Bed in low position, Wheels locked, Upper/Half-Length side-rails up, Visitor at bedside, Safety level maintained [facility] 09-21-2023 Functional Status Independent [facility] 09-21-2023 Functional Status ID band on, Call device within reach, Bed in low position, Wheels locked, Upper/Half-Length side-rails up, Visitor at bedside, Safety level maintained [facility] 05-08-2023 Functional Status Assistive Device None [facility] 05-08-2023 Functional Status Repositions self [facility] Mental Status Date Assessment Result Facility 10-04-2023 Mental Status Orientation Oriented x 4 [facility] 10-04-[facility]23 [facility] 09-21-2023 Mental Status Orientation Oriented x 4 [facility] 09-21-2023 Mental Status [facility] 05-08-2023 Mental Status Orientation Oriented x 4 [facility] Clinical Notes 07-17-2022 to 11-23-2023 RadiologyLaboratoryRadiologyRadiologyLaboratoryRadiologyLaboratoryRadiologyLabor atoryRadiologyLaboratoryRadiologyRadiologyRadiologyRadiologyRadiologyRadiology [...] Locations *1: This test was performed at: [facility], [address] [place] [address], [address] , [facility] ([place]) 11-08-2023 Note ORIGINAL EXAMINATION: CT OF THE [...] 11/08/2023 3:25:32 PM Ordering Provider: LIZZETTE SALES [facility] 11-03-2023 Note ORIGINAL EXAMINATION: ONE SUPINE XRAY [...] 11/03/2023 10:51:20 AM Ordering Provider: LIZZETTE SALES [facility] 10-04-2023 Hospital Discharge instructions Patient Education 10/04/2023 12:45:26 AA Blank DI (CUSTOM) Result type:CT Abd/Pelvis w/ IV Contrast Only Result date:October 04, 2023 11:49 EDT Result status:Auth (Verified) Result title:CT ABD/PELVIS W/ IV CONTRAST ONLY Performed by:NII CARMEN MD on October 04, 2023 11:37 EDT Cosigned by:NII CARMEN MD Verified by:NII CARMEN MD on October 04, 2023 11:49 EDT Encounter info:[id number], [facility], Emergency, 10/04/2023 - Contributor system:Tiansheng * Final Report * [id number] ORIGINAL EXAMINATION: CT OF THE ABDOMEN AND [...] Document Reviewed: 05/25/2014 ExitCare Patient Information 2015 [employer]. This information is not intended to replace [...] are taking other medicines. You may use kcxu-esh-umvunbw medicine to control pain, unless another pain [...] or as directed by your healthcare provider [phone] [employer]. [address] [place] [address]. All rights reserved. This information is not [...] foods again, start with small amounts of manz-fy-cmqrqn, low-fat foods. These include apple sauce, toast, [...] increase stomach acid. Don't use aspirin or rwut-qhc-zndcplv pain and fever medicines, if possible. This includes nonsteroidal anti-inflammatory drugs (NSAIDs). Lose excess weight. Finish eating at least 2 hours before you go to bed or lie down. Raise the head of your bed. [phone] [employer]. [address] [place] [address]. All rights reserved. This information is not intended as a substitute for professional medical care. Always follow your healthcare professional's instructions. Follow Up Care 10/04/2023 10:06:48 With:AWAIS SUN MD Address: [address] [phone] When:2-4 days With:your back doctor Address: When:2-4 days With:Go to emergency room if symptoms worsen Address:Unknown When:2-4 days With:LIZZETTE SALES DO Address: [address] [facility] [place] [phone] When:2-4 days [facility] 10-04-2023 Note Discharge Instructions Thank you for allowing [facility] to assist you with your healthcare needs. [...] Where: [address] [place] [phone] Follow Up with your back doctor When Within 2-4 days Where: Follow Up with Go to emergency room if symptoms worsen When Within 2-4 days Follow Up with LIZZETTE SALES DO When Within 2-4 days Where: 0 [facility] [place] [phone] Allergies NKA Medications Please ask your primary [...] October 04, 2023 11:49 EDT Encounter info: [id number], [facility], 10/04/2023 - Contributor system: Tiansheng * Final Report * [id number] ORIGINAL EXAMINATION: CT OF THE ABDOMEN AND [...] 05/24/2006 Document Revised: 05/10/2013 Document Reviewed: 05/25/2014 [facility] Patient Information 2015 [employer] [facility]. This information is not intended to [...] are taking other medicines. You may use jkvy-txy-wdruxqa medicine to control pain, unless another pain [...] or as directed by your healthcare provider [phone] [employer]. [address] [place] [address]. All rights reserved. This information is not [...] foods again, start with small amounts of pjca-hb-uifigd, low-fat foods. These include apple sauce, toast, [...] increase stomach acid. Don't use aspirin or opnu-drd-ezjjiqm pain and fever medicines, if possible. This includes nonsteroidal anti-inflammatory drugs (NSAIDs). Lose excess weight. Finish eating at least 2 hours before you go to bed or lie down. Raise the head of your bed. 4285-4792 [employer]. [address] [place] [address], [place] [address]. All rights reserved. This information is not intended as a substitute for professional medical care. Always follow your healthcare professional's instructions. Additional Information VACCINATE! IT SAVES LIVES! Members of the community who have not yet received the COVID-19 vaccine and would like to receive it can visit one of [facility] vaccine clinics. There are many vaccine clinic locations within the [facility]. For locations and available times, please visit [email or web address] v/. It is important to note that some COVID mobile vaccine clinics are held outdoors and may be canceled in rainy or stormy conditions. To learn more about pediatric vaccinations (ages 5-11), we invite you to visit the [facility] webpage. https://www.[employer]Power [employer].s.org/pag es/3689-Bfijo-Pkiftxvoytv-Frequent pw-Ogslo-Phpqnlquj.html To learn more about the COVID-19 vaccine, we invite you to visit the CDC website for a list of frequently asked questions. https://www.cdc.gov/coronavirus/-ncov/vaccines/faq.html [facility] Patient Portal Access Instructions: Stay connected with your healthcare team and access your personal medical information anytime with the [facility] Patient Portal. If you would like a full copy of your medical records please contact the [facility] Medical Records Department Wednesday through Wednesday between 8a.m. and 4:30p.m. Please follow the directions below to access the portal: 1.Access the email account you provided [facility].2.Look for an invitation email from [facility].3.Open the email and access the invitation link: Accept Invitation to [facility]4.Fill in the required shah to create your account. Sign into [email or web address] with your username and password that you [...] you will allow to register on the [facility] Patient Portal for access to your information. You can also access the [facility] Patient Portal on the Achieve3000 denis. Simply click on Health Records under [...] Call your local pharmacy or go to http://Fieldbook.[employer]/3X3Cg5c to find one close to you.3.Make use of household items: Use cat litter or old coffee grounds to dispose medications if other options are not available. Mix your drugs with these household products, seal them in an airtight container and throw it into the garbage. Call [facility]: [phone] to be sure your drugs can be [...] aware that I should contact my doctor. Patient/Cone Baker Machine Signature: Date/Time: Relationship to Patient: ___ Witness Name/Signature: Date/Time: [facility] 10-04-2023 Note ORIGINAL EXAMINATION: CT OF THE [...] 10/04/2023 12:06:02 PM Ordering Provider: LEONARDO GUIDRY [facility] 09-21-2023 Hospital Discharge instructions Patient Education 09/21/2023 [...] are taking other medicines. You may use hrfu-yrf-rnlyuvh medicine as directed on the bottle to [...] Numbness in the groin or genital area 3527-2404 [employer]. [address] [place] [address]. All rights reserved. This information is not intended as a substitute for professional medical care. Always follow your healthcare professional's instructions. Follow Up Care 09/21/2023 09:32:16 With:LIZZETTE SALES Address: [address] [place] [address] [phone] Business (1) When:1-2 days Comments:Contact your doctor's office to schedule an outpatient MRI of your lumbar spine.Limit activity as tolerated.Continue pain medication as prescribed by your doctor.Use Wheatley as prescribed for severe pain. Take Zofran prior to try to prevent GI side effects of the pain medication.Return to the ED if symptoms worsen. [facility] 09-21-2023 Note Discharge Instructions Thank you for allowing [facility] to assist you with your healthcare needs. [...] medication as prescribed by your doctor. Use Wheatley as prescribed for severe pain. Take Zofran prior to try to prevent GI side effects of the pain medication. Return to the ED if symptoms worsen. Where: [address] [place] [address] [phone] Business (1) Allergies NKA Medications Please ask your primary doctor or pharmacist before taking any other medication not listed, including over the counter drugs, herbal medications, vitamins and or supplements as they may interact with your home medications. What How Much When Why Instructions Last Dose New acetaminophen-hydrocodone (Wheatley 325- 5 mg oral tablet) 1 tab(s) [...] are taking other medicines. You may use rgyr-zfh-seykveo medicine as directed on the bottle to [...] Numbness in the groin or genital area 7328-0231 [employer]. [address] [place] [address], [place] [address]. All rights reserved. This information is not intended as a substitute for professional medical care. Always follow your healthcare professional's instructions. Additional Information VACCINATE! IT SAVES LIVES! Members of the community who have not yet received the COVID-19 vaccine and would like to receive it can visit one of [facility] vaccine clinics. There are many vaccine clinic locations within the [facility]. For locations and available times, please visit [email or web address] v/. It is important to note that some COVID mobile vaccine clinics are held outdoors and may be canceled in rainy or stormy conditions. To learn more about pediatric vaccinations (ages 5-11), we invite you to visit the [facility] webpage. https://www.[facility].org/pag es/9143-Ihalj-Gmpglcuxvlb-Frequent tc-Jnrov-Womusmjgw.html To learn more about the COVID-19 vaccine, we invite you to visit the CDC website for a list of frequently asked questions. https://www.cdc.gov/coronavirus/ 19-ncov/vaccines/faq.html [facility] Patient Portal Access Instructions: Stay connected with your healthcare team and access your personal medical information anytime with the [facility] Patient Portal. If you would like a full copy of your medical records please contact the [facility] Medical Records Department Wednesday through Wednesday between 8a.m. and 4:30p.m. Please follow the directions below to access the portal: 1.Access the email account you provided upon registration to the hospital.2.Look for an invitation email from [facility].3.Open the email and access the invitation link: Accept Invitation to [facility]4.Fill in the required shah to create your account. Sign into [email or web address] with your username and password that you [...] you will allow to register on the [facility] Patient Portal for access to your information. You can also access the [facility] Patient Portal on the Achieve3000 denis. Simply click on Health Records under [...] Call your local pharmacy or go to http://Fieldbook.[employer]/4K2Ig5m to find one close to you.3.Make use of household items: Use cat litter or old coffee grounds to dispose medications if other options are not available. Mix your drugs with these household products, seal them in an airtight container and throw it into the garbage. Call [facility]: [phone] to be sure your drugs can be [...] aware that I should contact my doctor. Patient/Cone Baker Machine Signature: Date/Time: Relationship to Patient: ___ Witness Name/Signature: Date/Time: [facility] 09-15-2023 Note . MICRO - Microbiology PROCEDURE: [...] Locations *1: This test was performed at: [address], [address] [place] [address] ([place]) 05-08-2023 Hospital Discharge instructions Patient Education 05/08/2023 [...] Swelling, pain, or redness in one leg 1004-9778 [employer]. [address] [place] [address]. All rights reserved. This information is not intended as a substitute for professional medical care. Always follow your healthcare professional's instructions. Follow Up Care 05/08/2023 09:01:37 With:LIZZETTE SALES DO Address: [address] [place] [address] [place] [phone] When:2-4 days [facility] 05-08-2023 Note Discharge Instructions Thank you for allowing [facility] to assist you with your healthcare needs. [...] DO When Within 2-4 days Where: 0 [facility] [place] [phone] Allergies NKA Medications Please ask your primary [...] a broken bone while taking this medicine watermaster or more than once per day. What [...] may report side effects to FDA at 5-739-HFB-4224. What other drugs will affect pantoprazole? Tell your doctor about all your other medicines, especially: digoxin; methotrexate; or a diuretic or 'water pill.' This list is not complete. Other drugs may affect pantoprazole, including prescription and mldl-fzf-smuresx medicines, vitamins, and herbal products. Not all [...] to ensure that the information provided by [employer]. ('[employer]') is accurate, up-to-date, and complete, but no guarantee is made to that effect. Drug information contained herein may be time sensitive. [employer] information has been compiled for use by healthcare practitioners and consumers in the [place] and therefore [employer] does not warrant that uses outside of the [place] are appropriate, unless specifically indicated otherwise. [employer] drug information does not endorse drugs, diagnose patients or recommend therapy. [employer] drug information is an informational resource designed [...] effective or appropriate for any given patient. [employer] does not assume any responsibility for any aspect of healthcare administered with the aid of information [employer] provides. The information contained herein is not intended to cover all possible uses, directions, precautions, warnings, drug interactions, allergic reactions, or adverse effects. If you have questions about the drugs you are taking, check with your doctor, nurse or pharmacist. Copyright 3012-6150 [employer]. Version: 21.. Revision Date: 06/10/2020. Education Materials [...] Swelling, pain, or redness in one leg 3965-5835 [employer]. [address] [place] [address], [place] [address]. All rights reserved. This information is not intended as a substitute for professional medical care. Always follow your healthcare professional's instructions. Additional Information VACCINATE! IT SAVES LIVES! Members of the community who have not yet received the COVID-19 vaccine and would like to receive it can visit one of [facility] vaccine clinics. There are many vaccine clinic locations within the [facility]. For locations and available times, please visit [email or web address] v/. It is important to note that some COVID mobile vaccine clinics are held outdoors and may be canceled in rainy or stormy conditions. To learn more about pediatric vaccinations (ages 5-11), we invite you to visit the [facility] webpage. https://www.[employer].org/pag es/8941-Kfuxx-Efccbniclaa-Frequent on-Cuwsk-Qezpccxmh.html To learn more about the COVID-19 vaccine, we invite you to visit the CDC website for a list of frequently asked questions. https://www.cdc.gov/coronavirus/20 19-ncov/vaccines/faq.html [facility] Patient Portal Access Instructions: Stay connected with your healthcare team and access your personal medical information anytime with the [facility] Patient Portal. If you would like a full copy of your medical records please contact the [facility] Medical Records Department Wednesday through Wednesday between 8a.m. and 4:30p.m. Please follow the directions below to access the portal: 1.Access the email account you provided upon registration to the hospital.2.Look for an invitation email from [facility].3.Open the email and access the invitation link: Accept Invitation to [facility]4.Fill in the required shah to create your account. Sign into [email or web address] with your username and password that you [...] you will allow to register on the [employer] Patient Portal for access to your information. You can also access the [employer] Patient Portal on the Achieve3000 denis. Simply click on Health Records under Health Data and then click on the [employer] logo. HOW TO SAFELY DISPOSE OF PRESCRIPTION [...] Call your local pharmacy or go to http://Fieldbook.[employer]/8J3Zr2h to find one close to you.3.Make use of household items: Use cat litter or old coffee grounds to dispose medications if other options are not available. Mix your drugs with these household products, seal them in an airtight container and throw it into the garbage. Call [facility]: [phone] to be sure your drugs can be [...] aware that I should contact my doctor. Patient/Cone Baker Machine Signature: Date/Time: Relationship to Patient: ___ Witness Name/Signature: Date/Time: [facility] 05-08-2023 Note ORIGINAL EXAMINATION: CTA OF THE [...] Reason for Exam: elevated d dimer FINDINGS: Gizm-fg-nbppuwbq degenerative changes are noted in the spine. [...] 05/08/2023 12:45:07 PM Ordering Provider: CHANTAL ZAPIEN [facility] 05-08-2023 Note ORIGINAL EXAMINATION: ONE XRAY VIEW [...] 05/08/2023 11:11:05 AM Ordering Provider: CHANTAL ZAPIEN [facility] 05-08-2023 Note Sinus rhythm Electronic Signature: CHANTAL ZAPIEN MD 05/08/2023 09:34:57 [facility] 05-06-2023 Note . MICRO - Microbiology PROCEDURE: Urine Culture [*1] SOURCE: Urine, Clean Catch BODY SITE: COLLECTED DATE/TIME: 05/05/2023 11:21 EST RECEIVED DATE/TIME: 05/05/2023 19:28 EST START DATE/TIME: 05/05/2023 19:28 EST FREE TEXT SOURCE: FINAL REPORTS Final Report [] Verified Date/Time/Personnel: 05/06/2023 14:03 EST 50,000 - 100,000 cfu/ml Mixed growth consistent with normal urogenital giles. Performing Locations *1: This test was performed at: [facility], [address] [place] [address], [phone] , [facility] ([place]) 08-05-2022 SARS-CoV-2 (COVID-19) RNA BREANNA+probe Ql (Nph) [...] 07/17/2022 6:24:30 PM Ordering Provider: LIZZETTE SALES [facility] 07-17-2022 Note ORIGINAL EXAMINATION: SOFT TISSUE ULTRASOUND [...] 07/17/2022 6:24:30 PM Ordering Provider: LIZZETTE SALES [facility] Evaluation + Plan note Future Appointments Appointment Date:05/12/2021 10:00:00 AM Scheduled Provider: Location:[facility] Appointment Type:BD Bone Density DEXA Axial Skeleton Appointment Date:10/29/2021 08:00:00 AM Scheduled Provider:LIZZETTE SALES DO Location:[facility] Appointment Type: OV Future Scheduled TestsBD Bone Density DEXA Axial Skeleton 05/12/21 [facility] Evaluation + Plan note Future Appointments Appointment Date:10/29/2021 08:00:00 AM Scheduled Provider:LIZZETTE SALES DO Location:[facility] Appointment Type: OV [facility] Evaluation + Plan note Future Appointments Appointment Date:10/29/2021 08:00:00 AM Scheduled Provider:LIZZETTE SALES DO Location:[facility] Appointment Type: OV Future Scheduled TestsCOVID-19 Only (AO) 06/02/21 [facility] Evaluation + Plan note Future Appointments Appointment Date:05/06/2022 08:00:00 AM Scheduled Provider:LIZZETTE SALES DO Location:[facility] Appointment Type:PC Wellness Medicare [facility] Evaluation + Plan note Future Appointments Appointment Date:03/10/2022 01:30:00 PM Scheduled Provider:LIZZETTE SALES DO Location:[facility] Appointment Type:PC OV Follow Up Appointment Date:05/06/2022 08:00:00 AM Scheduled Provider:LIZZETTE SALES DO Location:[facility] Appointment Type:PC Wellness Medicare [facility] Evaluation + Plan note Future Appointments Appointment Date:09/02/2022 09:00:00 AM Scheduled Provider:LIZZETTE SALES DO Location:[facility] Appointment Type:PC OV Follow Up [facility] Evaluation + Plan note Future Appointments Appointment Date:08/28/2022 09:00:00 AM Scheduled Provider:LIZZETTE SALES DO Location:[facility] Appointment Type:PC OV Follow Up Diagnostic Tests PendingVitamin B12 Level 07/07/22 Future Scheduled TestsUS Soft Tissue Mass 07/07/22 [facility] Evaluation + Plan note Future Appointments Appointment Date:08/28/2022 09:00:00 AM Scheduled Provider:LIZZETTE SALES DO Location:[facility] Appointment Type:PC OV Follow Up [facility] Evaluation + Plan note Future Appointments Appointment Date:10/23/2022 09:30:00 AM Scheduled Provider:LIZZETTE SALES DO Location:[facility] Appointment Type:PC OV [facility] Evaluation + Plan note Future Appointments Appointment Date:05/11/2023 10:30:00 AM Scheduled Provider:LIZZETTE SALES DO Location:[facility] Appointment Type: Wellness Medicare [facility] Evaluation + Plan note Future Appointments Appointment Date:08/03/2023 11:00:00 AM Scheduled Provider:LIZZETTE SALES DO Location:[facility] Appointment Type:PC OV Future Scheduled TestsBD Bone Density DEXA Axial Skeleton 05/11/23 [facility] Evaluation + Plan note Future Appointments Appointment Date:12/02/2023 11:00:00 AM Scheduled Provider:LIZZETTE SALES DO Location:[facility] Appointment Type:PC OV Future Scheduled TestsThyroid Stimulating Hormone 08/03/23BD Bone Density DEXA Axial Skeleton 05/11/23 [facility] Evaluation + Plan note Future Appointments Appointment Date:12/14/2023 11:00:00 AM Scheduled Provider:LIZZETTE SALES DO Location:[facility] Appointment Type:PC OV Future Scheduled TestsThyroid Stimulating Hormone 08/03/23BD Bone Density DEXA Axial Skeleton 05/11/23 [facility] Evaluation + Plan note Future Appointments Appointment Date:09/22/2023 08:00:00 AM Scheduled Provider:LIZZETTE SALES DO Location:[facility] Appointment Type:PC OV Appointment Date:09/24/2023 09:30:00 AM Scheduled Provider: Silver:[facility] Appointment Type:CT Abdomen and Pelvis w/o Contrast Appointment Date:12/14/2023 11:00:00 AM Scheduled Provider:LIZZETTE SALES DO Location:[facility] Appointment Type:PC OV Future Scheduled TestsThyroid Stimulating Hormone 08/03/23BD Bone Density DEXA Axial Skeleton 05/11/23CT Abdomen and Pelvis w/o contrast 09/24/23 [facility] Evaluation + Plan note Future Appointments Appointment Date:11/03/2023 09:00:00 AM Scheduled Provider:LIZZETTE SALES DO Location:[facility] Appointment Type:PC OV Appointment Date:12/14/2023 11:00:00 AM Scheduled Provider:LIZZETTE SALES DO Location:[facility] Appointment Type:PC OV Future Scheduled TestsBasic Metabolic Panel 09/22/23Thyroid Stimulating Hormone 08/03/23BD Bone Density DEXA Axial Skeleton 05/11/23MRI Spine Lumbar w/ + w/o Contrast 09/22/23 [facility] Evaluation + Plan note Future Appointments Appointment Date:10/05/2023 12:30:00 PM Scheduled Provider:LIZZETTE SALES DO Location:[facility] Appointment Type:PC OV ED Follow Up Appointment Date:11/03/2023 09:00:00 AM Scheduled Provider:LIZZETTE SALES DO Location:[facility] Appointment Type:PC OV Appointment Date:12/14/2023 11:00:00 AM Scheduled Provider:LIZZETTE SALES DO Location:[facility] Appointment Type:PC OV Future Scheduled TestsBD Bone Density DEXA Axial Skeleton 10/01/23MRI Spine Lumbar w/ + w/o Contrast 09/22/23 [facility] Evaluation + Plan note Future Appointments Appointment Date:12/14/2023 11:00:00 AM Scheduled Provider:LIZZETTE SALES DO Location:[facility] Appointment Type:PC OV Future Scheduled TestsBD Bone Density DEXA Axial Skeleton 10/01/23CT Abdomen and Pelvis w/ contrast 11/03/23MRI Spine Lumbar w/ + w/o Contrast 09/22/23 [facility] Evaluation + Plan note Future Appointments Appointment Date:12/14/2023 11:00:00 AM Scheduled Provider:LIZZETTE SALES DO Location:[facility] Appointment Type:PC OV Future Scheduled TestsBD Bone Density DEXA Axial Skeleton 10/01/23MRI Spine Lumbar w/ + w/o Contrast 09/22/23 [facility] Evaluation + Plan note Future Appointments Appointment Date:02/16/2024 09:30:00 AM Scheduled Provider:LIZZETTE SALES DO Location:[facility] Appointment Type:PC OV Future Scheduled TestsBD Bone Density DEXA Axial Skeleton 10/01/23MRI Spine Lumbar w/ + w/o Contrast 09/22/23 [facility] Evaluation + Plan note Future Appointments Appointment Date:05/25/2024 10:30:00 AM Scheduled Provider:LIZZETTE SALES DO Location:[facility] Appointment Type: Wellness Medicare Future Scheduled TestsBD Bone Density DEXA Axial Skeleton 10/01/23MRI Spine Lumbar w/ + w/o Contrast 09/22/23 [facility] Hospital course Narrative No data available for this section [facility] Hospital Discharge instructions No data available for this section [facility] Progress note No data available for this section [facility] Instructions Instruction Description Start Date CompletedPlease follow-up wi th Primary Care Physician or Warehouse Administrative Assistant for treatment or adjustment of [...] Personnel Name: LIZZETTE SALES DO Address: [address] [facility] [place], [place] [address] Name: Santiago Carballo PT Care Team Personnel Name: IVELISSE LISA MD Member Role: Pain Management Address: Address: [address] [place] [address] Name: Santiago Carballo PT Position: P3 Scheduling - Ocean Freight Agent Advanced Member Role: Other Name: SERAFIN AHUMADA MD Member Role: Grounds/Maintenance Specialist Address: Address: [facility] [address] [place] [address]- Name: ROZINA JEFFERSON MD Member Role: Oncologist Address: Address: [address] [place] [address]- Name: OLU GEORGE Member Role: Dentist Name: LIZZETTE SALES DO Position: P4 Physician - Primary Care Member Role: Primary Care Physician Address: Address: [address] [place] [address]- Name: VINCENT CASTRO Member Role: Board Certified Orthodontist Care Team Related Persons Name: CHELSI HEARN Care Team Personnel Name: IVELISSE LISA MD Member Role: Pain Management Address: Address: [address] [place], [place] [id number] Name: Santiago Carabllork Joan PT Position: P3 Scheduling - Ocean Freight Agent Advanced Member Role: Other Name: SERAFIN AHUMADA MD Member Role: Grounds/Maintenance Specialist Address: Address: [facility] [address] [place] [address]- Name: ROZINA JEFFERSON MD Member Role: Oncologist Address: Address: [address] [place] [address]- Name: OLU GEORGE Member Role: Dentist Name: NICKIE COOK MD Member Role: Well Service Floorperson Address: Address: [address] [place] [address]- Name: LIZZETTE SALES DO Position: P4 Physician - Primary Care Member Role: Primary Care Physician Address: Address: [address] [place] [address]- [place] Name: VINCENT CASTRO Member Role: Board Certified Orthodontist Care Team Related Persons Name: CHELSI HEARN Care Team Personnel Name: IVELISSE LISA MD Member Role: Pain Management Address: Address: [address] [place] [address]- [place] Name: Santiago Carballork Joan PT Position: P3 Scheduling - Ocean Freight Agent Advanced Member Role: Other Name: SERAFIN AHUMADA MD Member Role: Grounds/Maintenance Specialist Address: Address: [facility] [address] [place] [address]- [place] Name: ROZINA JEFFERSON MD Member Role: Oncologist Address: Address: [address] [place] [address]- Name: OLU GEORGE Member Role: Dentist Name: NICKIE COOK MD Member Role: Well Service Floorperson Address: Address: [address] [place] [address]- [place] Name: LIZZETTE SALES DO Position: P4 Physician - Primary Care Member Role: Primary Care Physician Address: Address: [address] [place] [address]- [place] Name: VINCENT CASTRO Member Role: Board Certified Orthodontist Name: CHANTAL ZAPIEN MD Position: [facility] Physician Member Role: Attending Physician Address: Address: [address] [place] [address]- Care Team Related Persons Name: CHELSI HEARN Care Team Personnel Name: IVELISSE LISA MD Member Role: Pain Management Address: Address: [place] [address]- Name: Santiago Carballo PT Position: P3 Scheduling - Ocean Freight Agent Advanced Member Role: Other Name: SERAFIN AHUMADA MD Member Role: Grounds/Maintenance Specialist Address: Address: [facility] [address] [place] [address]- [place] Name: ROZINA JEFFERSON MD Member Role: Oncologist Address: Address: [address] [place] [address]- [place] Name: OLU GEORGE Member Role: Dentist Name: NICKIE COOK MD Member Role: Well Service Floorperson Address: Address: [address] [place] [address]- [place] Name: LIZZETTE SALES DO Position: P4 Physician - Primary Care Member Role: Primary Care Physician Address: Address: [address] [place] [address]- [place] Name: VINCENT CASTRO Member Role: Board Certified Orthodontist Care Team Related Persons Name: CHELSI HEARN Care Team Personnel Name: IVELISSE LISA MD Member Role: Pain Management Address: Address: [address] [place] [address]- [place] Name: Centre, Rate Inserter Joan PT Position: P3 Scheduling - Ocean Freight Agent Advanced Member Role: Other Name: SERAFIN AHUMADA MD Member Role: Grounds/Maintenance Specialist Address: Address: [facility] [address] [place] [address]- Name: ROZINA JEFFERSON MD Member Role: Oncologist Address: Address: [address] [place] [address]- Name: OLU GEORGE Member Role: Dentist Name: NICKIE COOK MD Member Role: Well Service Floorperson Address: Address: [address] [place] [address]- [place] Name: LIZZETTE SALES DO Position: P4 Physician - Primary Care Member Role: Primary Care Physician Address: Address: [address] [place] [address] Name: VINCENT CASTRO Member Role: Board Certified Orthodontist Care Team Related Persons Name: CHELSI HEARN Care Team Personnel Name: IVELISSE LISA MD Member Role: Pain Management Address: Address: [address] [place] [address]- Name: Santiago Carballo Clerk Joan PT Position: P3 Scheduling - Ocean Freight Agent Advanced Member Role: Other Name: SERAFIN AHUMADA MD Member Role: Grounds/Maintenance Specialist Address: Address: [facility] [place] [id number]- Name: ROZINA JEFFERSON MD Member Role: Oncologist Address: Address: [address] [place] [address]- Name: OLU GEORGE Member Role: Dentist Name: NICKIE COOK MD Member Role: Well Service Floorperson Address: Address: [address] [place] [address]- Name: LIZZETTE SALES DO Position: P4 Physician - Primary Care Member Role: Primary Care Physician Address: Address: [address] [place] [address]- Name: VINCENT CASTRO Member Role: Board Certified Orthodontist Care Team Related Persons Name: CHELSI HEARN Care Team Personnel Name: IVELISSE LISA MD Member Role: Pain Management Address: Address: [address] [place] [address]- Name: Centre, Rate Inserter Joan PT Position: P3 Scheduling - Ocean Freight Agent Advanced Member Role: Other Name: SERAFIN AHUMADA MD Member Role: Grounds/Maintenance Specialist Address: Address: [facility] [address] [place] [address]- Name: ROZINA JEFFERSON MD Member Role: Oncologist Address: Address: [address] [place] [address]- Name: OLU GEORGE Member Role: Dentist Name: NICKIE COOK MD Member Role: Well Service Floorperson Address: Address: [address] [place] [address]- [place] Name: LIZZETTE SALES DO Position: P4 Physician - Primary Care Member Role: Primary Care Physician Address: Address: [address] [place] [address] Name: VINCENT CASTRO Member Role: Board Certified Orthodontist Care Team Related Persons Name: CHELSI HEARN Care Team Personnel Name: IVELISSE LISA MD Member Role: Pain Management Address: Address: [place] [address]- Name: Santiago Carballorpatrick Laua PT Position: P3 Scheduling - Ocean Freight Agent Advanced Member Role: Other Name: SERAFIN AHUMADA MD Member Role: Grounds/Maintenance Specialist Address: Address: [facility] [address] [place] [address]- Name: ROZINA JEFFERSON MD Member Role: Oncologist Address: Address: [address] [place] [address]- Name: OLU GEORGE Member Role: Dentist Name: NICKIE COOK MD Member Role: Well Service Floorperson Address: Address: [address] [place] [address]- Name: LIZZETTE SALES DO Position: P4 Physician - Primary Care Member Role: Primary Care Physician Address: Address: [address] [place] [address]- Name: VINCENT CASTRO Member Role: Board Certified Orthodontist Care Team Related Persons Name: CHELSI HEARN Care Team Personnel Name: IVELISSE LISA MD Member Role: Pain Management Address: Address: [address] [place] [address]- Name: Santiago Carballo Clerk Joan PT Position: P3 Scheduling - Ocean Freight Agent Advanced Member Role: Other Name: SERAFIN AHUMADA MD Member Role: Grounds/Maintenance Specialist Address: Address: [facility] [address] [place] [address]- Name: ROZINA JEFFERSON MD Member Role: Oncologist Address: Address: [address] [place] [address]- Name: OLU GEORGE Member Role: Dentist Name: NICKIE COOK MD Member Role: Well Service Floorperson Address: Address: [address] [place] [address]- [place] Name: LIZZETTE SALES DO Position: P4 Physician - Primary Care Member Role: Primary Care Physician Address: Address: [address] [place] [address] Name: VINCENT CASTRO Member Role: Board Certified Orthodontist Care Team Related Persons Name: CHELSI HEARN Care Team Personnel Name: IVELISSE LISA MD Member Role: Pain Management Address: Address: [place] [address]- Name: Santiago Carballo Clerk Joan PT Position: P3 Scheduling - Ocean Freight Agent Advanced Member Role: Other Name: SERAFIN AHUMADA MD Member Role: Grounds/Maintenance Specialist Address: Address: [facility] [address] [place] [address]- Name: ROZINA JEFFERSON MD Member Role: Oncologist Address: Address: [address] [place] [address]- Name: OLU GEORGE Member Role: Dentist Name: NICKIE COOK MD Member Role: Well Service Floorperson Address: Address: [address] [place] [address]- Name: LIZZETTE SALES DO Position: P4 Physician - Primary Care Member Role: Primary Care Physician Address: Address: [address] [place] [address] Name: VINCENT CASTRO Member Role: Board Certified Orthodontist Care Team Related Persons Name: CHELSI HEARN Name: LIDIA CAMPOS Care Team Personnel Name: IVELISSE LSIA MD Member Role: Pain Management Address: Address: [address] [place] [id number]- Name: Santiago Carballorpatrick Franco PT Position: P3 Scheduling - Ocean Freight Agent Advanced Member Role: Other Name: SERAFIN AHUMADA MD Member Role: Grounds/Maintenance Specialist Address: Address: [facility] [address] [place] [address]- Name: ROZINA JEFFERSON MD Member Role: Oncologist Address: Address: [address] [place] [address]- Name: OLU GEORGE Member Role: Dentist Name: NICKIE COOK MD Member Role: Well Service Floorperson Address: Address: [address] [place] [address]- Name: LIZZETTE SALES DO Position: P4 Physician - Primary Care Member Role: Primary Care Physician Address: Address: [address] [place] [address] Name: VINCENT CASTRO Member Role: Board Certified Orthodontist Care Team Related Persons Name: CHELSI HEARN Name: LIDIA CAMPOS Care Team Personnel Name: IVELISSE LISA MD Member Role: Pain Management Address: Address: [place] [id number]- Name: Santiago Carballorpatrick Franco PT Position: P3 Scheduling - Ocean Freight Agent Advanced Member Role: Other Name: SERAFIN AHUMADA MD Member Role: Grounds/Maintenance Specialist Address: Address: [facility] [place] [address]- Name: ROZINA JEFFERSON MD Member Role: Oncologist Address: Address: [address] [place] [address]- Name: OLU GEORGE Member Role: Dentist Name: NICKIE COOK MD Member Role: Well Service Floorperson Address: Address: [address] [place] [address]- Name: LIZZETTE SALES DO Position: P4 Physician - Primary Care Member Role: Primary Care Physician Address: Address: [address] [place] [address]- Name: VINCENT CASTRO Member Role: Board Certified Orthodontist Care Team Related Persons Name: CHELSI HEARN Name: BETH, LIDIA Care Team Personnel Name: IVELISSE ILSA MD Member Role: Pain Management Address: Address: [address] [place] [address]- Name: Santiago Carballo PT Position: P3 Scheduling - Ocean Freight Agent Advanced Member Role: Other Name: SERAFIN AHUMADA MD Member Role: Grounds/Maintenance Specialist Address: Address: [facility] [address] [place] [address]- Name: ROZINA JEFFERSON MD Member Role: Oncologist Address: Address: [address] [place] [id number]- Name: OLU GEORGE Member Role: Dentist Name: NICKIE COOK MD Member Role: Well Service Floorperson Address: Address: [address] [place] [address]- Name: LIZZETTE SALES DO Position: P4 Physician - Primary Care Member Role: Primary Care Physician Address: Address: [address] [place] [id number] [place] [address] Name: VINCENT CASTRO Member Role: Board Certified Orthodontist Care Team Related Persons Name: CHELSI HEARN Name: LIDIA CAMPOS Care Team Personnel Name: IVELISSE LISA MD Member Role: Pain Management Address: Address: [address] [place] [id number]- Name: Santiago Carballo PT Position: P3 Scheduling - Ocean Freight Agent Advanced Member Role: Other Name: SERAFIN AHUMADA MD Member Role: Grounds/Maintenance Specialist Address: Address: [facility] [address] [place] [address]- Name: ROZINA JEFFERSON MD Member Role: Oncologist Address: Address: [address] [place] [address]- Name: OLU GEORGE Member Role: Dentist Name: NICKIE COOK MD Member Role: Well Service Floorperson Address: Address: [address] [place] [address]- Name: LIZZETTE SALES DO Position: P4 Physician - Primary Care Member Role: Primary Care Physician Address: Address: [address] [place] [address]- Name: VINCENT CASTRO Member Role: Board Certified Orthodontist Care Team Related Persons Name: CHELSI HEARN Name: LIDIA CAMPOS Care Team (unrecognized sect ion and content) Personnel Name: LIZZETTE SALES DO Address: Address: [address] [place] [address] Name: Santiago Carballo PT Care Team Personnel Name: IVELISSE LISA MD Member Role: Pain Management Address: Address: [address] [place] [address] Name: Santiago Carballorpatrick Franco PT Position: P3 Scheduling - Ocean Freight Agent Advanced Member Role: Other Name: LIZZETTE SALES DO Position: P4 Physician - Primary Care Med Service: Active Provider Member Role: Primary Care Physician Address: Address: [address] [place] [address] Care Team Related Persons Name: CHELSI HEARN Care Team Personnel Name: IVELISSE LISA MD Member Role: Pain Management Address: Address: [address] [place] [address] Name: Santiago Carballorpatrick Laua PT Position: P3 Scheduling - Ocean Freight Agent Advanced Member Role: Other Name: SERAFIN AHUMADA MD Member Role: Grounds/Maintenance Specialist Address: Address: [facility] [address] Name: OLU GEORGE Member Role: Dentist Name: LIZZETTE SALES DO Position: P4 Physician - Primary Care Member Role: Primary Care Physician Address: Address: [address] [place] [address] Name: VINCENT CASTRO Member Role: Board Certified Orthodontist Care Team Related Persons Name: CHELSI HEARN Care Team Personnel Name: IVELISSE LISA MD Member Role: Pain Management Address: Address: [address] [place] [address]- Name: Santiago Carballork Joan PT Position: P3 Scheduling - Ocean Freight Agent Advanced Member Role: Other Name: SERAFIN AHUMADA MD Member Role: Grounds/Maintenance Specialist Address: Address: [facility] [address] Name: OLU GEORGE Member Role: Dentist Name: LIZZETTE SALES DO Position: P4 Physician - Primary Care Member Role: Primary Care Physician Address: Address: [address] [place] [address] Name: VINCENT CASTRO Member Role: Board Certified Orthodontist Care Team Related Persons Name: CHELSI HEARN Care Team Personnel Name: IVELISSE LISA MD Member Role: Pain Management Address: Address: [address] Name: Santiago Carballork Joan PT Position: P3 Scheduling - Ocean Freight Agent Advanced Member Role: Other Name: SERAFIN AHUMADA MD Member Role: Grounds/Maintenance Specialist Address: Address: [facility] [address] Name: OLU GEORGE Member Role: Dentist Name: LIZZETTE SALES DO Position: P4 Physician - Primary Care Member Role: Primary Care Physician Address: Address: [address] [place] [address] Name: VINCENT CASTRO Member Role: Board Certified Orthodontist Care Team Related Persons Name: CHELSI HEARN Care Team Personnel Name: IVELISSE LISA MD Member Role: Pain Management Address: Address: [address] Name: Santiago Carballork Joan PT Position: P3 Scheduling - Ocean Freight Agent Advanced Member Role: Other Name: SERAFIN AHUMADA MD Member Role: Grounds/Maintenance Specialist Address: Address: [facility] [address] Name: OLU GEORGE Member Role: Dentist Name: LIZZETTE SALES DO Position: P4 Physician - Primary Care Member Role: Primary Care Physician Address: Address: [address] [place] [address] Name: VINCENT CASTRO Member Role: Board Certified Orthodontist Care Team Related Persons Name: CHELSI HEARN Care Team Personnel Name: IVELISSE LISA MD Member Role: Pain Management Address: Address: [address] [place] [address]- Name: Santiago Carballork Joan PT Position: P3 Scheduling - Ocean Freight Agent Advanced Member Role: Other Name: SERAFIN AHUMADA MD Member Role: Grounds/Maintenance Specialist Address: Address: [facility] [address] [place], [place] [address] Name: OLU GEORGE Member Role: Dentist Name: LIZZETTE SALES DO Position: P4 Physician - Primary Care Member Role: Primary Care Physician Address: Address: [address] [facility] [place], [place] [address] Name: VINCENT CASTRO Member Role: Board Certified Orthodontist Care Team Related Persons Name: CHELSI HEARN INFORMATION SOURCE (unrecogn ized section and content) DATE CREATED AUTHOR 12/22/2023 [facility] ([place]) DATE CREATED AUTHOR AUTHOR'S ORGANIZ ATION 04/01/2024 [facility] FOR RECORDS PERTAINING TO PATIENTS WHO ARE [...] BE BASED ON THE PRIMARY CLINICAL RECORDS. [employer] provides no warranty or guarantee of the accuracy or completeness of information in this document.
[2024-04-01 23:14] VITALS: BP 107/47; PULSE 75; RESP 16; TEMP 36.6; O2SAT 98
[2024-04-01 23:54] VITALS: BMI 22.8
[2024-04-02] VITALS: BP 133/54; PULSE 73; RESP 18; TEMP 36.5; O2SAT 99
[2024-04-02] MEDS: KCL 20MEQ in 0.9% NS 20 MEQ/1,000 ML IV.SOLN. 70 MEQ IV (00:25)
--- OUTSIDE RECORDS SUMMARY | 2024-04-02 00:40 | XMS RPT_ITS | CCD ---
Author Organization [facility] Inform ion [facility] Care Team Providers Care Franchise Business Consultant Name Role Phone Tacos Estes DO Unavailable LIZZETTE SALES DO Primary Care Physician [phone] Joan Carballo PT Unavailable Unavailable LIZZETTE ASLES DO Primary Care Physician [phone] LIZZETTE SALES DO Attending Unavailable MÓNICA DO, LIZZETTE Primary Care Unavailable MÓNICA DO LIZZETTE Admitting Unavailable LU PAINT TECHNICIAN-FLUORESCENT SOLUTION MIXERNURIS Attending Yana SALES DO, LIZZETTE Primary Care [...] MÓNICA DO, LIZZETTE Primary Care Unavailable KAREN PAINT TECHNICIAN-FLUORESCENT SOLUTION MIXER, LEONARDO Attending Yana SALES DO, LIZZETTE Primary Care Unavailable MÓNICA DO, LIZZETTE Attending Unavailable MÓNICA DO, LIZZETTE Primary Care Unavailable KAREN PAINT TECHNICIAN-FLUORESCENT SOLUTION MIXER, LEONARDO Attending Yana SALES DO, LIZZETTE Primary Care Unavailable MÓNICA DO, LIZZETTE Attending Unavailable MÓNICA DO, LIZZETTE Primary Care Unavailable RICHARDSON PAINT TECHNICIAN-FLUORESCENT SOLUTION MIXERBENITO Attending Unavailyris SALES DO, LIZZETTE Primary Care [...] every six hours as needed for pain Upper Tract 325- 5 mg oral tablet Dose = [...] oral solution (1 source) alpha-Adrenergic Agonist, Uncompetitive M-acucyg-E-aspartat e Receptor Antagonist, Sigma-1 Agonist Start: 08-12-2022 End: 08-26-2022 take 1 dose by mouth four times daily as needed Bromfed DM oral syrup Dose = 5 mL, Oral, QID, PRN for cold symptoms, X 7 day(s), # 120 mL, 1 Refill(s), Pharmacy: [facility], Lab test positive for detection of [...] 0 Refill(s), 05/14/23 5:37:00 PM EST, Pharmacy: [facility], 158.5, cm, 10/23/22 9:40:00 EDT, Height, [...] constipation, # 60 cap(s), 5 Refill(s), Pharmacy: [facility], Constipation, 157, cm, 02/16/24 9:20:00 EDT, Height, kg, 02/16/24 9:20:00 EDT, Dosing Weight Start Date: 02/16/24 Status: Ordered hydroCHLOROthiazide 25 mg oral tablet (9 sources) Thiazide Diuretic Start: 10-29-2021 hydroCHLOROthiazide 25 mg oral tablet Dose : 25 mg = 1 tab(s), Oral, qDay, # 90 tab(s), 3 Refill(s), Pharmacy: [facility] ([facility], Hypertension High blood pressure, 159, cm, 10/29/21 7:54:00 EDT, Height, kg, 10/29/21 7:54:00 EDT, Dosing Weight Start Date: 10/29/21 Status: Ordered Start: 10-08-2020 hydroCHLOROthi azide 25 mg oral tablet Dose : 25 mg = 1 tab(s), Oral, qDay, # 90 tab(s), 3 Refill(s), Pharmacy: [facility] ([facility], Hypertension, 160, cm, 10/08/20 8:35:00 EDT, Height, kg, 10/08/20 8:35:00 EDT, Dosing Weight Start Date: 10/08/20 Status: Ordered levocetirizine dihydrochloride 5 mg oral tablet (2 sources) Histamine-1 Receptor Antagonist Start: 12-15-2023 Xyzal 5 mg oral tablet Dose : 5 mg = 1 tab(s), Oral, qHS, # 90 tab(s), 1 Refill(s), Pharmacy: [facility], Seasonal allergies, 157, cm, 12/14/23 11:20:00 EDT, Height, kg, 12/14/23 11:20:00 EDT, Dosing Weight Start Date: 12/15/23 Status: Ordered losartan potassium 50 mg oral tablet (20 sources) Angiotensin 2 Receptor Juan C Start: 02-16-2024 losartan 50 mg oral tablet Dose : 50 mg = 1 tab(s), Oral, qDay, # 90 tab(s), 1 Refill(s), Pharmacy: [facility]) [place], High blood pressure High blood pressure, 157, [...] tab(s), 0 Refill(s), Pharmacy: [facility] [place], Hypertension High blood pressure, 160, cm, 08/28/22... Start Date: 08/28/22 Stop Date: 09/04/22 Status: Ordered Start: 08-03-2022 End: 08-10-2022 losartan 50 mg oral tablet D ose : 50 mg = 1 tab(s), Oral, BID, # 14 tab(s), 0 Refill(s), Pharmacy: [facility], Hypertension High blood pressure, 159.5, cm, [...] qDay, # 14 tab(s), 0 Refill(s), Pharmacy: [facility], Hypertension High blood pressure, 160, cm, 05/06/22 8:04:00 EST, Height, kg, 05/06/22 8:04:00 EST, Dosing Weight Start Date: 05/12/22 Stop Date: 05/26/22 Status: Ordered Start: 10-08-2020 losartan 50 mg oral tablet Dose : 50 mg = 1 tab(s), Oral, qDay, # 90 tab(s), 3 Refill(s), Pharmacy: [facility] ([facility], Hypertension, 160, cm, 10/08/20 8:35:00 EDT, Height, kg, 10/08/20 8:35:00 EDT, Dosing Weight Start Date: 10/08/20 Status: Ordered Start: 10-05-2017 LOSARTAN POTAS SIUM 50 MG TABS once daily LOSARTAN POTASSIUM [id number] Scot D Estes DO lutein 20 mg [...] tab(s), 0 Refill(s), 05/07/21 9:18:00 EST, Pharmacy: [facility], Vertigo, 160.5, cm, 04/30/21 8:25:00 EST, Height, kg, 04/30/21 8:25:00 EST, Dosing Weight Start Date: 04/30/21 Stop Date: 05/07/21 Status: Ordered meloxicam 15 mg oral tablet (4 sources) Nonsteroidal Anti-inflammatory Drug Start: 09-15-2023 Mobic 15 mg oral tablet Dose : 15 mg = 1 tab(s), Oral, qDay, # 30 tab(s), 0 Refill(s), Pharmacy: [facility], 160, cm, 09/13/23 11:37:00 EDT, Height, kg, 09/13/23 11:37:00 EDT, Dosing Weight Start Date: 09/15/23 Status: Ordered Start: 10-05-2017 MELOXICAM 15 M G TABS once daily MELOXICAM [id number] [facility] ondansetron 4 mg disintegrating oral tablet (3 sources) Serotonin-3 Receptor Antagonist Start: 03-30-2024 End: 04-06-2024 ondansetron 4 mg oral tablet, disintegrating Dose : 4 mg = 1 tab(s), Oral, q8h, PRN as needed for nausea/vomiting, X 7 day(s), # 21 tab(s), 0 Refill(s), 04/06/24 12:31:00 PM EDT, Pharmacy: [facility], Nausea and vomiting, 157, cm, 03/30/24 [...] 0 Refill(s), 10/02/23 8:59:00 AM EDT, Pharmacy: [facility], Lumbar back pain, 159, cm, 09/22/23 [...] BID, # 10 tab(s), 0 Refill(s), Pharmacy: [facility], 157.6, cm, 02/23/22 13:57:00 EDT, Height, [...] immediately, # 90 tab(s), 1 Refill(s), Pharmacy: [facility] ([facility], Hypothyroid, 160, cm, 05/06/22 8:04:00 EST, Height Start Date: 05/13/22 Status: Ordered Start: 10-29-2021 End: 05-26-2022 levothyroxine 75 mcg (0.075 mg) oral tablet Dose : 75 mcg = 1 tab(s), Oral, qDay, # 14 tab(s), 0 Refill(s), Pharmacy: [facility], Hypothyroidism Hypothyroid, 160, cm, 05/06/22 8:04:00 EST, Height, kg, 05/06/22 8:04:00 EST, Dosing Weight Start Date: 05/12/22 Stop Date: 05/26/22 Status: Ordered Start: 10-31-2020 levothyroxine 75 mcg (0.075 mg) oral tablet Dose : 75 mcg = 1 tab(s), Oral, qDay, # 10 tab(s), 0 Refill(s), Pharmacy: [facility], Hypothyroidism, 160, cm, 10/08/20 8:35:00 EDT, Height, kg, 10/08/20 8:35:00 EDT, Dosing Weight Start Date: 10/31/20 Status: Ordered Start: 10-05-2017 LEVOTHYROXINE SODIUM 88 MCG TABS once daily LEVOTHYROXINE SODIUM [id number] [facility] tiZANidine 4 mg oral tablet (2 sources) Central alpha-2 Adrenergic Agonist Start: 03-28-2024 End: 04-04-2024 tiZANidine 4 mg oral tablet Dose : 4 mg = 1 tab(s), Oral, q6h, PRN as needed for muscle spasm, # 30 tab(s), 0 Refill(s), Pharmacy: [facility], Thoracic myofascial strain Radicular pain in right arm, 157, cm, 02/16/24 9:20:00 EDT, Height, kg, 02/16/24 9:20:00 EDT, Dosing Weight Start Date: 03/28/24 Stop Date: 04/04/24 Status: Ordered Start: 05-11-2023 End: 05-25-2023 tiZANidine 4 mg oral tablet Dose : 4 mg = 1 tab(s), Oral, qHS, PRN as needed for muscle spasm, # 14 tab(s), 0 Refill(s), Pharmacy: [facility], Thoracic myofascial strain Radicular pain in [...] tab(s), 0 Refill(s), 07/07/21 13:41:00 EST, Pharmacy: [facility], Acute right flank pain Hematuria, 159, cm, 07/02/21 13:11:00 EST, Height, 64.6, kg, 07/02/21 13:11:... Start Date: 07/02/21 Stop Date: 07/07/21 Status: Ordered traZODone hydrochloride 50 mg oral tablet (3 sources) Serotonin Reuptake Inhibitor Start: 02-16-2024 End: 08-14-2024 traZODone 50 mg oral tablet Dose : 50 mg = 1 tab(s), Oral, qHS, # 30 tab(s), 5 Refill(s), Pharmacy: [facility], Insomnia, 157, cm, 02/16/24 9:20:00 EDT, Height, kg, 02/16/24 9:20:00 EDT, Dosing Weight Start Date: 02/16/24 Stop Date: 08/14/24 Status: Ordered Start: 11-22-2023 End: 12-22-2023 traZODone 50 mg oral tablet Dose : 50 mg = 1 tab(s), Oral, qHS, # 30 tab(s), 0 Refill(s), Pharmacy: [facility], Insomnia, 157, cm, 11/22/23 7:28:00 EDT, [...] QID, # 56 cap(s), 0 Refill(s), Pharmacy: [facility], Abdominal bloating with cramps Constipation, 159, [...] 10-05-2017 POTASSIUM TABS once daily POTASSIUM TABS [id number] Tacos Estes raloxifene hydrochloride 60 mg oral tablet (1 source) Estrogen Agonist/Antagoni st Start: 10-05-2017 EVISTA 60 MG TABS once every other daily RALOXIFENE HCL [id number] Tacos Estes DO Problems Active Problems Problem [...] Range Facility .GFRon 03-30-2024 GFR 96 ml/min/1.73sqm [facility] Comment on above: Result Comment: GFR Population [...] C MP, CBC, GFR, MORPH, DIFF #### [address] [address] GFR Non- 80 ml/min/1.73sqm [facility] Comment on above: Result Comment: GFR Population [...] C MP, CBC, GFR, MORPH, DIFF #### [address] [address] .Manual Diffon 03-30-2024 Atypical Lymphs 4.0 % Normal 0.0-5.0 [facility] Comment on above: Performed By: #### C MP, CBC, GFR, MORPH, DIFF #### [address] [address] Bands 2.0 % Normal 0.0-5.0 [facility] Comment on above: Performed By: #### C MP, CBC, GFR, MORPH, DIFF #### [address] [address] Basophil %, Manual 0.0 % Normal 0.0-2.5 [facility] Comment on above: Performed By: #### C MP, CBC, GFR, MORPH, DIFF #### [address] [address] Basophil, Abs Manual 0.0 10 3/mcL Normal 0.0-0.2 [facility] Comment on above: Performed By: #### C MP, CBC, GFR, MORPH, DIFF #### [address] [address] Eosinophil %, Manual 0.0 % Normal 0.0-7.0 [facility] Comment on above: Performed By: #### C MP, CBC, GFR, MORPH, DIFF #### [address] [address] Eosinophil, Abs Manual 0.0 10 3/mcL Normal 0.0-0.7 [facility] Comment on above: Performed By: #### C MP, CBC, GFR, MORPH, DIFF #### [address] [address] Lymphocyte %, Manual 55.0 % High 20.0-40.0 [facility] Comment on above: Performed By: #### C MP, CBC, GFR, MORPH, DIFF #### [address] [address] Lymphocyte, Abs Manual 7.1 10 3/mcL High 0.9-4.3 [facility] Comment on above: Performed By: #### C MP, CBC, GFR, MORPH, DIFF #### [address] [address] Monocyte %, Manual 3.0 % Normal 2.0-13.0 [facility] Comment on above: Performed By: #### C MP, CBC, GFR, MORPH, DIFF #### [address] [address] Monocyte, Abs Manual 0.4 10 3/mcL Normal 0.1-1.4 [facility] Comment on above: Performed By: #### C MP, CBC, GFR, MORPH, DIFF #### [address] [address] Neutrophil %, Manual 36.0 % Low 50.0-75.0 [facility] Comment on above: Performed By: #### C MP, CBC, GFR, MORPH, DIFF #### [address] [address] Neutrophil, Abs Manual 4.9 10 3/mcL Normal 2.3-8.1 [facility] Comment on above: Performed By: #### C MP, CBC, GFR, MORPH, DIFF #### [address] [address] Nucleated RBC 0.0 /100 WBC Normal [facility] Comment on above: Performed By: #### C MP, CBC, GFR, MORPH, DIFF #### [address] [address] .Morphon 03-30-2024 Anisocytosis Ql (Bld) 1+ Normal [facility] Comment on above: Performed By: #### C MP, CBC, GFR, MORPH, DIFF #### [address] [address] Ovalocytes 1+ Normal [facility] Comment on above: Performed By: #### C MP, CBC, GFR, MORPH, DIFF #### [place] [address] Platelet Estimate Normal Normal [facility] Comment on above: Performed By: #### C MP, CBC, GFR, MORPH, DIFF #### [address] [address] CBCon 03-30-2024 Erythrocyte distribution width (RBC) [Ratio] 14.2 % Normal 11.5-15.5 [facility] Comment on above: Performed By: #### C MP, CBC, GFR, MORPH, DIFF #### [place] [address] Hematocrit (Bld) [Volume fraction] 38.6 % Normal 34.0-46.0 [facility] Comment on above: Performed By: #### C MP, CBC, GFR, MORPH, DIFF #### [place] [id number] Hgb 13.5 G/dL Normal 12.0-16.0 [facility] Comment on above: Performed By: #### C MP, CBC, GFR, MORPH, DIFF #### [place] [id number] MCH (RBC) [Entitic mass] 30.4 pg Normal 27.0-33.0 [facility] Comment on above: Performed By: #### C MP, CBC, GFR, MORPH, DIFF #### [place] [address] MCHC 35.1 G/dL Normal 32.0-36.0 [facility] Comment on above: Performed By: #### C MP, CBC, GFR, MORPH, DIFF #### [place] [phone] MCV (RBC) [Entitic vol] 86.8 fL Normal 80.0-99.0 [facility] Comment on above: Performed By: #### C MP, CBC, GFR, MORPH, DIFF #### [address] [address] Platelet 257 10 3/mcL Normal 150-450 [facility] Comment on above: Performed By: #### C MP, CBC, GFR, MORPH, DIFF #### [address] [address] Platelet mean volume (Bld) [Entitic vol] 7.7 fL Normal 6.6-10.5 [facility] Comment on above: Performed By: #### C MP, CBC, GFR, MORPH, DIFF #### [address] [address] RBC 4.44 10 6/mcL Normal 4.10-5.30 [facility] Comment on above: Performed By: #### C MP, CBC, GFR, MORPH, DIFF #### [address] [address] WBC 13.0 10 3/mcL High 4.5-10.8 [facility] Comment on above: Performed By: #### C MP, CBC, GFR, MORPH, DIFF #### [address] [address] CMPon 03-30-2024 Albumin Level 4.2 G/dL Normal 3.4-4.8 [facility] Comment on above: Performed By: #### C MP, CBC, GFR, MORPH, DIFF #### [address] [address] Albumin/Globulin [Mass ratio] 1.6 {ratio} Normal 1.1-2.5 [facility] Comment on above: Performed By: #### C MP, CBC, GFR, MORPH, DIFF #### [address] [address] ALP [Catalytic activity/Vol] 86 U/L Normal 40-135 [facility] Comment on above: Performed By: #### C MP, CBC, GFR, MORPH, DIFF #### [address] [address] ALT [Catalytic activity/Vol] 37 U/L Normal 14-59 [facility] Comment on above: Performed By: #### C MP, CBC, GFR, MORPH, DIFF #### [address] [address] AST [Catalytic activity/Vol] 36 U/L Normal 10-40 [facility] Comment on above: Performed By: #### C MP, CBC, GFR, MORPH, DIFF #### [address] [address] Bili Total 0.7 mg/dL Normal 0.2-1.0 [facility] Comment on above: Result Comment: Use of this assay is not recommended for patients undergoing treatment with eltrombopag due to the potential for falsely elevated results. Performed By: #### C MP, CBC, GFR, MORPH, DIFF #### [address] [address] BUN/Creatinine Ratio 14 ratio Normal 7-27 [facility] Comment on above: Performed By: #### C MP, CBC, GFR, MORPH, DIFF #### [address] [address] Calcium [Mass/Vol] 9.2 mg/dL Normal 8.4-10.2 [facility] Comment on above: Performed By: #### C MP, CBC, GFR, MORPH, DIFF #### [address] [address] Chloride [Moles/Vol] 79 mmol/L Low 98-107 [facility] Comment on above: Performed By: #### C MP, CBC, GFR, MORPH, DIFF #### [address] [address] CO2 [Moles/Vol] 28 mmol/L Normal 23-31 [facility] Comment on above: Performed By: #### C MP, CBC, GFR, MORPH, DIFF #### [address] [address] Creatinine [Mass/Vol] 0.70 mg/dL Normal 0.55-1.02 [facility] Comment on above: Result Comment: Test ing performed on Siemens Dimension EXL analyzer using a modified kinetic Katelin technique. Performed By: #### C MP, CBC, GFR, MORPH, DIFF #### [address] [address] Electrolyte Balance 8.0 mEq/L Normal 4.0-15.0 [facility] Comment on above: Performed By: #### C MP, CBC, GFR, MORPH, DIFF #### [address] [address] Globulin 2.7 G/dL Normal [facility] Comment on above: Performed By: #### C MP, CBC, GFR, MORPH, DIFF #### [address] [address] Glucose [Mass/Vol] 106 mg/dL Normal 83-110 [facility] Comment on above: Performed By: #### C MP, CBC, GFR, MORPH, DIFF #### [address] [address] Potassium [Moles/Vol] 4.4 mmol/L Normal 3.5-5.1 [facility] Comment on above: Performed By: #### C MP, CBC, GFR, MORPH, DIFF #### [address] [address] Sodium [Moles/Vol] 115 mmol/L Critically abnormal 136-145 [facility] Comment on above: Performed By: #### C MP, CBC, GFR, MORPH, DIFF #### [address] [address] Total Protein 6.9 G/dL Normal 6.4-8.2 [facility] Comment on above: Performed By: #### C MP, CBC, GFR, MORPH, DIFF #### [address] [address] Urea nitrogen [Mass/Vol] 10 mg/dL Normal 7-18 [facility] Comment on above: Performed By: #### C MP, CBC, GFR, MORPH, DIFF #### [address] [address] LABORATORYOrdered By: SYSTEM SYSTEM on 10-24-2024 Albumin [...] 02-14-2024 TSH Qn 1.32 m[IU]/L Normal 0.36-3.74 [facility] Comment on above: Performed By: #### T SHR #### [address] [address] .GFRon 12-16-2023 GFR 111 ml/min/1.73sqm Normal [facility] ([place]) Comment on above: Result Comment: GFR Population [...] L IPID, VIDH, CMP, TSH, GFR #### [address] [address] GFR Non- 92 ml/min/1.73sqm Normal [facility] ([place]) Comment on above: Result Comment: GFR Population [...] L IPID, VIDH, CMP, TSH, GFR #### [address] [address] CMPon 12-16-2023 Albumin Level 3.8 G/dL Normal 3.4-4.8 [facility] ([place] Comment on above: Performed By: #### L IPID, VIDH, CMP, TSH, GFR #### [address] [address] Albumin/Globulin [Mass ratio] 1.5 {ratio} Normal 1.1-2.5 [facility] ([place] Comment on above: Performed By: #### L IPID, VIDH, CMP, TSH, GFR #### [address] [address] ALP [Catalytic activity/Vol] 77 U/L Normal 40-135 [facility] ([place] Comment on above: Performed By: #### L IPID, VIDH, CMP, TSH, GFR #### [address] [address] ALT [Catalytic activity/Vol] 21 U/L Normal 14-59 [facility] ([place] Comment on above: Performed By: #### L IPID, VIDH, CMP, TSH, GFR #### [address] [address] AST [Catalytic activity/Vol] 12 U/L Normal 10-40 [facility] ([place] Comment on above: Performed By: #### L IPID, VIDH, CMP, TSH, GFR #### [address] [address] Bili Total 0.4 mg/dL Normal 0.2-1.0 [facility] ([place] Comment on above: Result Comment: Use of this assay is not recommended for patients undergoing treatment with eltrombopag due to the potential for falsely elevated results. Performed By: #### L IPID, VIDH, CMP, TSH, GFR #### [address] [address] BUN/Creatinine Ratio 18 ratio Normal 7-27 [facility] ([place] Comment on above: Performed By: #### L IPID, VIDH, CMP, TSH, GFR #### [address] [address] Calcium [Mass/Vol] 9.7 mg/dL Normal 8.4-10.2 [facility] ([place]) Comment on above: Performed By: #### L IPID, VIDH, CMP, TSH, GFR #### [address] [address] Chloride [Moles/Vol] 100 mmol/L Normal 98-107 [facility] ([place] Comment on above: Performed By: #### L IPID, VIDH, CMP, TSH, GFR #### [address] [address] CO2 [Moles/Vol] 30 mmol/L Normal 23-31 [facility] ([place] Comment on above: Performed By: #### L IPID, VIDH, CMP, TSH, GFR #### [address] [address] Creatinine [Mass/Vol] 0.62 mg/dL Normal 0.55-1.02 [facility] ([place] Comment on above: Performed By: #### L IPID, VIDH, CMP, TSH, GFR #### [address] [address] Electrolyte Balance 7.0 mEq/L Normal 4.0-15.0 [facility] ([place] Comment on above: Performed By: #### L IPID, VIDH, CMP, TSH, GFR #### [address] [address] Globulin 2.6 G/dL Normal [facility] ([place] Comment on above: Performed By: #### L IPID, VIDH, CMP, TSH, GFR #### [address] [address] Glucose [Mass/Vol] 90 mg/dL Normal 83-110 [facility] ([place] Comment on above: Performed By: #### L IPID, VIDH, CMP, TSH, GFR #### [address] [address] Potassium [Moles/Vol] 4.8 mmol/L Normal 3.5-5.1 [facility] ([place] Comment on above: Performed By: #### L IPID, VIDH, CMP, TSH, GFR #### [address] [address] Sodium [Moles/Vol] 137 mmol/L Normal 136-145 [facility] ([place] Comment on above: Performed By: #### L IPID, VIDH, CMP, TSH, GFR #### [address] [address] Total Protein 6.4 G/dL Normal 6.4-8.2 [facility] ([place] Comment on above: Performed By: #### L IPID, VIDH, CMP, TSH, GFR #### [address] [address] Urea nitrogen [Mass/Vol] 11 mg/dL Normal 7-18 [facility] ([place] Comment on above: Performed By: #### L IPID, VIDH, CMP, TSH, GFR #### [address] [address] FT4on 12-16-2023 Free T4 [Mass/Vol] 1.72 ng/dL High 0.76-1.46 [facility] ([place]) Comment on above: Order Comment: Order ed by Discern Performed By: #### L IPID, VIDH, CMP, TSH, GFR #### [address] [address] LIPIDon 12-16-2023 Cholesterol [Mass/Vol] 211 mg/dL High 0-200 [facility] ([place] Comment on above: Result Comment: Chol esterol Reference Interval: Less than 200 Desirable 200-239 Borderline high risk 240 and above High risk Performed By: #### L IPID, VIDH, CMP, TSH, GFR #### [address] [address] Cholesterol in HDL [Mass/Vol] 70 mg/dL High 40-60 [facility] ([place] Comment on above: Performed By: #### L IPID, VIDH, CMP, TSH, GFR #### [address] [address] Cholesterol in LDL [Mass/Vol] 132 mg/dL High 0-130 [facility] ([place] Comment on above: Performed By: #### L IPID, VIDH, CMP, TSH, GFR #### [address] [address] Triglyceride [Mass/Vol] 45 mg/dL Normal 0-150 [facility] ([place] Comment on above: Result Comment: Trig lyceride Reference Interval: Less than 150 Normal 150-199 Borderline high risk 200-499 High risk 500 or higher Very high risk Performed By: #### L IPID, VIDH, CMP, TSH, GFR #### [place] [address] TSHRon 12-16-2023 TSH Qn 0.24 m[IU]/L Low 0.36-3.74 [facility] ([place] Comment on above: Performed By: #### L IPID, VIDH, CMP, TSH, GFR #### [address] [address] VIDHon 12-16-2023 Vit. D 25-Hydroxy 72.7 ng/mL Normal [facility] ([place]) Comment on above: Result Comment: Inte rpretive Values Based on Total 25(OH) Vitamin D: Deficient <20 ng/mL Insufficient 20 - <30 ng/mL Sufficient 30-100 ng/mL Performed By: #### L IPID, VIDH, CMP, TSH, GFR #### [address] [address] No Panel Informationon 11-21 Culture Urine <10,000 cfu/ml. No Significant growth. Sensitivity not indicated. [facility] Work Phone: CT ABDOMEN/PELVIS W/CONTRAST on [...] 11/08/2023 3:25:32 PM Ordering Provider: LIZZETTE SALES [facility] ([place]) XR ABDOMEN APon 11-03-2023 XR ABDOMEN AP [...] 11/03/2023 10:51:20 AM Ordering Provider: LIZZETTE SALES [facility] ([place]) BD BONE DENSITY DEXA AXIAL S [facility] 10-13-2023 BD BONE DENSITY DEXA AXIAL SKELETON [...] 12:23:18 PM Ordering Provider: BENITO Nunez [facility] ([place]) .Auto Diffon 10-04-2023 Basophil, Absolute 0.1 10 3/mcL Normal 0.0-0.2 [facility] ([place]) Comment on above: Performed By: #### L IPID, VIDH, CMP, TSH, GFR #### [address] [address] Basophils/100 WBC (Bld) 1.2 % Normal 0.0-2.5 [facility] ([place]) Comment on above: Performed By: #### L IPID, VIDH, CMP, TSH, GFR #### [address] [address] Eosinophil, Absolute 0.1 10 3/mcL Normal 0.0-0.4 [facility] ([place]) Comment on above: Performed By: #### L IPID, VIDH, CMP, TSH, GFR #### [address] [address] Eosinophils/100 WBC (Bld) 0.5 % Normal 0.0-7.0 [facility] ([place]) Comment on above: Performed By: #### L IPID, VIDH, CMP, TSH, GFR #### [address] [id number] Lymphocyte, Absolute 6.0 10 3/mcL High 0.8-3.9 [facility] ([place]) Comment on above: Performed By: #### L IPID, VIDH, CMP, TSH, GFR #### [address] [address] Lymphocytes/100 WBC (Bld) 58.6 % High 10.0-50.0 [facility] [facility] ([place]) Comment on above: Performed By: #### L IPID, VIDH, CMP, TSH, GFR #### [address] [address] Monocyte, Absolute 0.6 10 3/mcL Normal 0.2-1.0 [facility] ([place]) Comment on above: Performed By: #### L IPID, VIDH, CMP, TSH, GFR #### [address] [address] Monocytes/100 WBC (Bld) 6.1 % Normal 1.7-13.0 [facility] ([place]) Comment on above: Performed By: #### L IPID, VIDH, CMP, TSH, GFR #### [address] [address] Neutrophils/100 WBC (Bld) 33.6 % Low 37.0-80.0 [facility] ([place]) Comment on above: Performed By: #### L IPID, VIDH, CMP, TSH, GFR #### [address] [address] .GFRon 10-04-2023 GFR 113 ml/min/1.73sqm Normal [facility] ([place]) Comment on above: Result Comment: GFR Population [...] L IPID, VIDH, CMP, TSH, GFR #### [address] [address] GFR Non- 93 ml/min/1.73sqm Normal [facility] ([place]) Comment on above: Result Comment: [...] L IPID, VIDH, CMP, TSH, GFR #### [place] [address] .MDWon 10-04-2023 Monocyte Distribution Width 20.45 High 0.00-20.00 [facility] ([place]) Comment on above: Result Comment: For adults in ED, MDW>20.0 may be associated with a higher risk of sepsis during the first 12hrs of hospital admission The predictive value of MDW for identifying sepsis in patients with hematological abnormalities has not been established Performed By: #### L IPID, VIDH, CMP, TSH, GFR #### [address] [address] .Manual Diffon 10-04-2023 Bands 1.0 % Normal 0.0-5.0 [facility] ([place]) Comment on above: Performed By: #### L IPID, VIDH, CMP, TSH, GFR #### [address] [address] Basophil %, Manual 0.0 % Normal 0.0-2.5 [facility] ([place]) Comment on above: Performed By: #### L IPID, VIDH, CMP, TSH, GFR #### [address] [address] Basophil, Abs Manual 0.0 10 3/mcL Normal 0.0-0.2 [facility] ([place]) Comment on above: Performed By: #### L IPID, VIDH, CMP, TSH, GFR #### [address] [address] Eosinophil %, Manual 0.0 % Normal 0.0-7.0 [facility] ([place]) Comment on above: Performed By: #### L IPID, VIDH, CMP, TSH, GFR #### [address] [address] Eosinophil, Abs Manual 0.0 10 3/mcL Normal 0.0-0.4 [facility] ([place]) Comment on above: Performed By: #### L IPID, VIDH, CMP, TSH, GFR #### [address] [address] Lymphocyte %, Manual 63.0 % High 10.0-50.0 [facility] ([place]) Comment on above: Performed By: #### L IPID, VIDH, CMP, TSH, GFR #### [address] [address] Lymphocyte, Abs Manual 6.4 10 3/mcL High 0.8-3.9 [facility] ([place]) Comment on above: Performed By: #### L IPID, VIDH, CMP, TSH, GFR #### [address] [address] Monocyte %, Manual 3.0 % Normal 1.7-13.0 [facility] ([place] Comment on above: Performed By: #### L IPID, VIDH, CMP, TSH, GFR #### [address] [address] Monocyte, Abs Manual 0.3 10 3/mcL Normal 0.2-1.0 [facility] ([place]) Comment on above: Performed By: #### L IPID, VIDH, CMP, TSH, GFR #### [address] [address] Neutrophil %, Manual 33.0 % Low 37.0-80.0 [facility] ([place]) Comment on above: Performed By: #### L IPID, VIDH, CMP, TSH, GFR #### [place] [address] Neutrophil, Abs Manual 3.4 10 3/mcL Normal 2.9-6.2 [facility] ([place] Comment on above: Performed By: #### L IPID, VIDH, CMP, TSH, GFR #### [place] [address] Nucleated RBC 0.0 /100 WBC Normal [facility] ([place]) Comment on above: Performed By: #### L IPID, VIDH, CMP, TSH, GFR #### [place] [address] .Morphon 10-04-2023 Platelet Estimate Normal Normal [facility]) Comment on above: Performed By: #### L IPID, VIDH, CMP, TSH, GFR #### [place] [address] .NEUABSon 10-04-2023 Neutrophil, Absolute 3.4 10 3/mcL Normal 2.9-6.2 [facility] ([place]) Comment on above: Performed By: #### L IPID, VIDH, CMP, TSH, GFR #### [place] [address] CBCon 10-04-2023 Erythrocyte distribution width (RBC) [Ratio] 14.6 % High 11.5-14.5 [facility] ([place]) Comment on above: Performed By: #### L IPID, VIDH, CMP, TSH, GFR #### [place] [address] Hematocrit (Bld) [Volume fraction] 34.9 % Low 37.0-47.0 [facility] ([place] Comment on above: Performed By: #### L IPID, VIDH, CMP, TSH, GFR #### [place] [address] Hgb 12.1 G/dL Normal 12.0-16.0 [facility] ([place]) Comment on above: Performed By: #### L IPID, VIDH, CMP, TSH, GFR #### [address] [address] MCH (RBC) [Entitic mass] 30.2 pg Normal 27.0-31.2 [facility] ([place] Comment on above: Performed By: #### L IPID, VIDH, CMP, TSH, GFR #### [address] [address] MCHC 34.5 G/dL Normal 33.0-37.0 [facility] ([place]) Comment on above: Performed By: #### L IPID, VIDH, CMP, TSH, GFR #### [address] [address] MCV (RBC) [Entitic vol] 87.5 fL Normal 80.0-94.0 [facility] ([place] Comment on above: Performed By: #### L IPID, VIDH, CMP, TSH, GFR #### [place] [address] Platelet 260 10 3/mcL Normal 130-400 [facility] ([place] Comment on above: Performed By: #### L IPID, VIDH, CMP, TSH, GFR #### [place] [address] Platelet mean volume (Bld) [Entitic vol] 8.0 fL Normal 7.4-10.4 [facility] ([place] Comment on above: Performed By: #### L IPID, VIDH, CMP, TSH, GFR #### [place] [id number] RBC 3.99 10 6/mcL Low 4.20-5.40 [facility] ([place]) Comment on above: Performed By: #### L IPID, VIDH, CMP, TSH, GFR #### [place] [id number] WBC 10.2 10 3/mcL Normal 4.6-10.8 [facility] ([place]) Comment on above: Performed By: #### L IPID, VIDH, CMP, TSH, GFR #### [address] [address] CMPon 10-04-2023 Albumin Level 4.0 G/dL Normal 3.4-4.8 [facility] ([place] Comment on above: Performed By: #### L IPID, VIDH, CMP, TSH, GFR #### [address] [address] Albumin/Globulin [Mass ratio] 1.4 {ratio} Normal 1.1-2.5 [facility] ([place] Comment on above: Performed By: #### L IPID, VIDH, CMP, TSH, GFR #### [address] [address] ALP [Catalytic activity/Vol] 88 U/L Normal 40-135 [facility] ([place]) Comment on above: Performed By: #### L IPID, VIDH, CMP, TSH, GFR #### [address] [address] ALT [Catalytic activity/Vol] 25 U/L Normal 14-59 [facility] ([place]) Comment on above: Performed By: #### L IPID, VIDH, CMP, TSH, GFR #### [address] [address] AST [Catalytic activity/Vol] 21 U/L Normal 10-40 [facility] ([place] Comment on above: Performed By: #### L IPID, VIDH, CMP, TSH, GFR #### [address] [address] Bili Total 0.5 mg/dL Normal 0.2-1.0 [facility] ([place]) Comment on above: Result Comment: Use of this assay is not recommended for patients undergoing treatment with eltrombopag due to the potential for falsely elevated results. Performed By: #### L IPID, VIDH, CMP, TSH, GFR #### [address] [address] BUN/Creatinine Ratio 20 ratio Normal 7-27 [facility] ([place] Comment on above: Performed By: #### L IPID, VIDH, CMP, TSH, GFR #### [address] [address] Calcium [Mass/Vol] 9.2 mg/dL Normal 8.4-10.2 [facility] ([place]) Comment on above: Performed By: #### L IPID, VIDH, CMP, TSH, GFR #### [address] [address] Chloride [Moles/Vol] 98 mmol/L Normal 98-107 [facility] ([place]) Comment on above: Performed By: #### L IPID, VIDH, CMP, TSH, GFR #### [place] [address] CO2 [Moles/Vol] 32 mmol/L High 23-31 [facility] ([place] Comment on above: Performed By: #### L IPID, VIDH, CMP, TSH, GFR #### [place] [address] Creatinine [Mass/Vol] 0.61 mg/dL Normal 0.55-1.02 [facility] ([place]) Comment on above: Performed By: #### L IPID, VIDH, CMP, TSH, GFR #### [address] [address] Electrolyte Balance 7.0 mEq/L Normal 4.0-15.0 [facility] ([place] Comment on above: Performed By: #### L IPID, VIDH, CMP, TSH, GFR #### [address] [address] Globulin 2.9 G/dL Normal [facility] ([place] Comment on above: Performed By: #### L IPID, VIDH, CMP, TSH, GFR #### [place] [id number] Glucose [Mass/Vol] 85 mg/dL Normal 83-110 [facility] ([place]) Comment on above: Performed By: #### L IPID, VIDH, CMP, TSH, GFR #### [place] [address] Potassium [Moles/Vol] 4.0 mmol/L Normal 3.5-5.1 [facility] ([place]) Comment on above: Performed By: #### L IPID, VIDH, CMP, TSH, GFR #### [place] [address] [place], [place] [address] Sodium [Moles/Vol] 137 mmol/L Normal 136-145 [facility] ([place] Comment on above: Performed By: #### L IPID, VIDH, CMP, TSH, GFR #### [address] [address] Total Protein 6.9 G/dL Normal 6.4-8.2 [facility] ([place]) Comment on above: Performed By: #### L IPID, VIDH, CMP, TSH, GFR #### [place] [phone] [place], [place] [address] Urea nitrogen [Mass/Vol] 12 mg/dL Normal 7-18 [facility] ([place] Comment on above: Performed By: #### L IPID, VIDH, CMP, TSH, GFR #### [address] [address] [address] ABD/PELVIS W/ IV CONTRAST ONLYon 10-04-2023 [...] 10/04/2023 12:06:02 PM Ordering Provider: LEONARDO Nunez [facility] ([place]) LABORATORYOrdered By: SYSTEM SYSTEM on 10-04-2023 Albumin [...] Lipase Level 25 U/L Normal 16-77 [facility] ([place] Comment on above: Performed By: #### L IPID, VIDH, CMP, TSH, GFR #### [address] [address] UAon 10-04-2023 Color (U) Yellow Normal [facility] ([place] Comment on above: Performed By: #### U A #### [address] [address] Glucose (U) [Mass/Vol] Negative Normal Negative [facility] ([place] Comment on above: Performed By: #### U A #### [address] [address] Ketones Ql (U) Negative Normal Negative [facility] ([place] Comment on above: Performed By: #### U A #### [address] [address] UA Appear Clear Normal Clear [facility] ([place] Comment on above: Performed By: #### U A #### [address] [address] UA Blood Trace Abnormal Negative [facility] ([place] Comment on above: Performed By: #### U A #### [address] [address] UA Leuk Est Negative Normal Negative [facility] ([place] Comment on above: Performed By: #### U A #### [address] [address] UA Nitrite Negative Normal Negative [facility] ([place] Comment on above: Performed By: #### U A #### [address] [address] UA pH 7.0 Normal 5.0 - 8.0 [facility] ([place] Comment on above: Performed By: #### U A #### [address] [address] UA Protein Negative Normal Negative [facility] ([place] Comment on above: Performed By: #### U A #### [place] [id number] UA Spec Grav 1.015 Normal 1.015-1.02 5 [facility] ([place] Comment on above: Performed By: #### U A #### [address] [address] UA Specimen Type Clean Catch Normal [facility] ([place] Comment on above: Performed By: #### U A #### [address] [address] UA Urobilinogen 0.2 E.U./dL Normal 0.2-1.0 [facility] ([place] Comment on above: Performed By: #### U A #### [address] [address] Urobilinogen (U) [Mass/Vol] Negative Normal Negative [facility] ([place] Comment on above: Performed By: #### U A #### [address] [address] .GFRon 09-28-2023 GFR 92 ml/min/1.73sqm Normal [facility] ([place] Comment on above: Result Comment: GFR Population [...] L IPID, VIDH, CMP, TSH, GFR #### [address] [address] GFR Non- 76 ml/min/1.73sqm Normal [facility] ([place] Comment on above: Result Comment: GFR Population [...] L IPID, VIDH, CMP, TSH, GFR #### [address] [address] BMPon 09-28-2023 BUN/Creatinine Ratio 14 ratio Normal 7-27 [facility] ([place] Comment on above: Performed By: #### B MP, TSH, GFR #### [address] [address] Calcium [Mass/Vol] 9.2 mg/dL Normal 8.4-10.2 [facility] ([place] Comment on above: Performed By: #### B MP, TSH, GFR #### [address] [address] Chloride [Moles/Vol] 101 mmol/L Normal 98-107 [facility] ([place] Comment on above: Performed By: #### B MP, TSH, GFR #### [address] [address] CO2 [Moles/Vol] 30 mmol/L Normal 23-31 [facility] ([place] Comment on above: Performed By: #### B MP, TSH, GFR #### [address] [address] Creatinine [Mass/Vol] 0.73 mg/dL Normal 0.55-1.02 [facility] ([place] Comment on above: Performed By: #### B MP, TSH, GFR #### [address] [address] Electrolyte Balance 6.0 mEq/L Normal 4.0-15.0 [facility] ([place] Comment on above: Performed By: #### B MP, TSH, GFR #### [address] [address] Glucose [Mass/Vol] 91 mg/dL Normal 83-110 [facility] ([place] Comment on above: Performed By: #### B MP, TSH, GFR #### [address] [address] Potassium [Moles/Vol] 4.8 mmol/L Normal 3.5-5.1 [facility] ([place] Comment on above: Performed By: #### B MP, TSH, GFR #### [address] [address] Sodium [Moles/Vol] 137 mmol/L Normal 136-145 [facility] ([place] Comment on above: Performed By: #### B MP, TSH, GFR #### [address] [address] Urea nitrogen [Mass/Vol] 10 mg/dL Normal 7-18 [facility] ([place] Comment on above: Performed By: #### B MP, TSH, GFR #### [facility] [place] [address] [place], [place] [address] TSHon 09-28-2023 TSH Qn 0.45 m[IU]/L Normal 0.36-3.74 [facility] ([place] Comment on above: Performed By: #### B MP, TSH, GFR #### [facility] [place] [address] [place], [place] [address] CT ABDOMEN/PELVIS W/O CONTRA STon 09-27-2023 CT [...] 09/27/2023 10:30:24 AM Ordering Provider: LEONARDO JONES [facility] ([place]) XR HIP 2-3 VIEWS LEFTon XR HIP 2-3 VIEWS LEFT ORIGINAL EXAMINATION: 2 XRAY VIEWS OF THE LEFT HIP 09/09/2023 3:31 pm COMPARISON: None. HISTORY: ORDERING SYSTEM PROVIDED HISTORY: Reason for Exam: L hip/lower back pain FINDINGS: No acute fracture or dislocation is identified. [id number] degenerative changes seen of the left hip. [...] 09/10/2023 3:52:33 PM Ordering Provider: GALE MARROQUIN [facility] ([place]) XR PELVIS 1 OR 2 VIEWSon XR [...] 09/10/2023 3:50:59 PM Ordering Provider: GALE MARROQUIN [facility] ([place]) LABORATORYOrdered By: Anna Felix on 08-03-2023 Albumin DL <= 20 mg/L (U) [Mass/Vol] mcg/dL Invalid Interpretation Code AO ADM SS Albumin/Creatinine DL <= 20 mg/L (U) [Mass ratio] unable to calc Invalid Interpretation Code 0 - 30 AO Chemistry S Creatinine (U) [Mass/Vol] mg/dL Low 28.0 - 117.0 mg/dL AO ADM SS MALBRon 08-03-2023 U Creatinine <13.0 Low 28.0-117.0 [facility] ([place]) Comment on above: Performed By: #### M ALBR #### [address] [address] U Microalb <130 Normal [facility] ([place] Comment on above: Performed By: #### M ALBR #### [address] [address] U Ratio Alb/Cre unable to calc Normal 0-30 [facility] ([place]) Comment on above: Performed By: #### M ALBR #### [address] [address] .GFRon 05-13-2023 GFR Non- 63 ml/min/1.73sqm [facility] ([place]) Comment on above: Result Comment: GFR Population [...] L IPID, VIDH, CMP, TSH, GFR #### [address] [address] GFR 76 ml/min/1.73sqm Normal [facility] ([place] Comment on above: Result Comment: GFR Population [...] L IPID, VIDH, CMP, TSH, GFR #### [address] [address] CMPon 05-13-2023 Albumin Level 3.4 G/dL Normal 3.4-4.8 [facility] ([place] Comment on above: Performed By: #### L IPID, VIDH, CMP, TSH, GFR #### [address] [address] Albumin/Globulin [Mass ratio] 1.3 {ratio} Normal 1.1-2.5 [facility] ([place] Comment on above: Performed By: #### L IPID, VIDH, CMP, TSH, GFR #### [address] [address] ALP [Catalytic activity/Vol] 66 U/L Normal 40-135 [facility] ([place] Comment on above: Performed By: #### L IPID, VIDH, CMP, TSH, GFR #### [address] [address] ALT [Catalytic activity/Vol] 21 U/L Normal 14-59 [facility] ([place] Comment on above: Performed By: #### L IPID, VIDH, CMP, TSH, GFR #### [address] [address] AST [Catalytic activity/Vol] 23 U/L Normal 10-40 [facility] ([place] Comment on above: Performed By: #### L IPID, VIDH, CMP, TSH, GFR #### [address] [address] Bili Total 0.4 mg/dL Normal 0.2-1.0 [facility] ([place] Comment on above: Result Comment: Use of this assay is not recommended for patients undergoing treatment with eltrombopag due to the potential for falsely elevated results. Performed By: #### L IPID, VIDH, CMP, TSH, GFR #### [address] [address] BUN/Creatinine Ratio 22 ratio Normal 7-27 [facility] ([place] Comment on above: Performed By: #### L IPID, VIDH, CMP, TSH, GFR #### [address] [address] Calcium [Mass/Vol] 8.9 mg/dL Normal 8.4-10.2 [facility] ([place] Comment on above: Performed By: #### L IPID, VIDH, CMP, TSH, GFR #### [address] [address] Chloride [Moles/Vol] 99 mmol/L Normal 98-107 [facility] ([place] Comment on above: Performed By: #### L IPID, VIDH, CMP, TSH, GFR #### [address] [address] CO2 [Moles/Vol] 26 mmol/L Normal 23-31 [facility] ([place] Comment on above: Performed By: #### L IPID, VIDH, CMP, TSH, GFR #### [address] [address] Creatinine [Mass/Vol] 0.86 mg/dL Normal 0.55-1.02 [facility] ([place] Comment on above: Performed By: #### L IPID, VIDH, CMP, TSH, GFR #### [address] [address] Electrolyte Balance 8.0 mEq/L Normal 4.0-15.0 [facility] ([place] Comment on above: Performed By: #### L IPID, VIDH, CMP, TSH, GFR #### [address] [address] Globulin 2.7 G/dL Normal [facility] ([place] Comment on above: Performed By: #### L IPID, VIDH, CMP, TSH, GFR #### [address] [address] Glucose [Mass/Vol] 104 mg/dL Normal 83-110 [facility] ([place] Comment on above: Performed By: #### L IPID, VIDH, CMP, TSH, GFR #### [address] [address] Potassium [Moles/Vol] 4.4 mmol/L Normal 3.5-5.1 [facility] ([place] Comment on above: Performed By: #### L IPID, VIDH, CMP, TSH, GFR #### [address] [address] Sodium [Moles/Vol] 133 mmol/L Low 136-145 [facility] ([place] Comment on above: Performed By: #### L IPID, VIDH, CMP, TSH, GFR #### [address] [address] Total Protein 6.1 G/dL Low 6.4-8.2 [facility] ([place] Comment on above: Performed By: #### L IPID, VIDH, CMP, TSH, GFR #### [address] [address] Urea nitrogen [Mass/Vol] 19 mg/dL High 7-18 [facility] ([place] Comment on above: Performed By: #### L IPID, VIDH, CMP, TSH, GFR #### [place] [address] [place], [place] [address] LABORATORYOrdered By: SYSTEM SYSTEM on 05-13-2023 25-hydroxyvitamin [...] Cholesterol [Mass/Vol] 217 mg/dL High 0-200 [facility] ([place] Comment on above: Result Comment: Chol esterol Reference Interval: Less than 200 Desirable 200-239 Borderline high risk 240 and above High risk Performed By: #### L IPID, VIDH, CMP, TSH, GFR #### [address] [address] Cholesterol in HDL [Mass/Vol] 41 mg/dL Normal 40-60 [facility] ([place] Comment on above: Performed By: #### L IPID, VIDH, CMP, TSH, GFR #### [address] [address] Cholesterol in LDL [Mass/Vol] 156 mg/dL High 0-130 [facility] ([place] Comment on above: Performed By: #### L IPID, VIDH, CMP, TSH, GFR #### [address] [address] Triglyceride [Mass/Vol] 102 mg/dL Normal 0-150 [facility] ([place] Comment on above: Result Comment: Trig lyceride Reference Interval: Less than 150 Normal 150-199 Borderline high risk 200-499 High risk 500 or higher Very high risk Performed By: #### L IPID, VIDH, CMP, TSH, GFR #### [address] [address] TSHon 05-13-2023 TSH Qn 3.84 m[IU]/L High 0.36-3.74 [facility] ([place]) Comment on above: Performed By: #### L IPID, VIDH, CMP, TSH, GFR #### [address] [address] VIDHon 05-13-2023 Vit. D 25-Hydroxy 69.7 ng/mL Normal [facility] ([place]) Comment on above: Result Comment: Inte rpretive Values Based on Total 25(OH) Vitamin D: Deficient <20 ng/mL Insufficient 20 - <30 ng/mL Sufficient 30-100 ng/mL Performed By: #### L IPID, VIDH, CMP, TSH, GFR #### [address] [address] .GFRon 05-08-2023 GFR 76 ml/min/1.73sqm Normal [facility] ([place]) Comment on above: Result Comment: [...] L IPID, VIDH, CMP, TSH, GFR #### [address] [address] GFR Non- 63 ml/min/1.73sqm Normal [facility] ([place]) Comment on above: Result Comment: [...] L IPID, VIDH, CMP, TSH, GFR #### [place] [address] .MDWon 05-08-2023 Monocyte Distribution Width 34.01 High 0.00-20.00 [facility] ([place] Comment on above: Result Comment: The predictive value of MDW for identifying sepsis in patients with hematological abnormalities has not been established Performed By: #### L IPID, VIDH, CMP, TSH, GFR #### [place] [address] .Manual Diffon 05-08-2023 Basophil %, Manual 1.0 % Normal 0.0-2.5 [facility] ([place] Comment on above: Performed By: #### L IPID, VIDH, CMP, TSH, GFR #### [place] [address] Basophil, Abs Manual 0.4 10 3/mcL High 0.0-0.2 [facility] ([place] Comment on above: Performed By: #### L IPID, VIDH, CMP, TSH, GFR #### [place] [address] Eosinophil %, Manual 0.0 % Normal 0.0-7.0 [facility] ([place] Comment on above: Performed By: #### L IPID, VIDH, CMP, TSH, GFR #### [place] [address] Eosinophil, Abs Manual 0.0 10 3/mcL Normal 0.0-0.4 [facility] ([place] Comment on above: Performed By: #### L IPID, VIDH, CMP, TSH, GFR #### [address] [address] Lymphocyte %, Manual 92.0 % High 10.0-50.0 [facility] ([place] Comment on above: Performed By: #### L IPID, VIDH, CMP, TSH, GFR #### [address] [address] Lymphocyte, Abs Manual 35.8 10 3/mcL High 0.8-3.9 [facility] ([place]) Comment on above: Performed By: #### L IPID, VIDH, CMP, TSH, GFR #### [address] [address] Monocyte %, Manual 1.0 % Low 1.7-13.0 [facility] ([place]) Comment on above: Performed By: #### L IPID, VIDH, CMP, TSH, GFR #### [address] [address] Monocyte, Abs Manual 0.4 10 3/mcL Normal 0.2-1.0 [facility] ([place]) Comment on above: Performed By: #### L IPID, VIDH, CMP, TSH, GFR #### [address] [address] Neutrophil %, Manual 6.0 % Low 37.0-80.0 [facility] ([place]) Comment on above: Performed By: #### L IPID, VIDH, CMP, TSH, GFR #### [address] [address] Neutrophil, Abs Manual 2.3 10 3/mcL Low 2.9-6.2 [facility] ([place]) Comment on above: Performed By: #### L IPID, VIDH, CMP, TSH, GFR #### [address] [address] Nucleated RBC 0.0 /100 WBC Normal [facility] ([place]) Comment on above: Performed By: #### L IPID, VIDH, CMP, TSH, GFR #### [place] [address] .Morphon 05-08-2023 Platelet Estimate Normal Normal [facility]) Comment on above: Performed By: #### L IPID, VIDH, CMP, TSH, GFR #### [place] [address] CBCon 05-08-2023 Erythrocyte distribution width (RBC) [Ratio] 15.7 % High 11.5-14.5 [facility] ([place]) Comment on above: Performed By: #### L IPID, VIDH, CMP, TSH, GFR #### [place] [address] Hematocrit (Bld) [Volume fraction] 32.2 % Low 37.0-47.0 [facility] ([place]) Comment on above: Performed By: #### L IPID, VIDH, CMP, TSH, GFR #### [place] [address] Hgb 10.5 G/dL Low 12.0-16.0 [facility] ([place]) Comment on above: Performed By: #### L IPID, VIDH, CMP, TSH, GFR #### [place] [address] MCH (RBC) [Entitic mass] 29.9 pg Normal 27.0-31.2 [facility] ([place]) Comment on above: Performed By: #### L IPID, VIDH, CMP, TSH, GFR #### [place] [address] MCHC 32.6 G/dL Low 33.0-37.0 [facility] ([place]) Comment on above: Performed By: #### L IPID, VIDH, CMP, TSH, GFR #### [place] [address] MCV (RBC) [Entitic vol] 91.6 fL Normal 80.0-94.0 [facility] ([place]) Comment on above: Performed By: #### L IPID, VIDH, CMP, TSH, GFR #### [address] [address] Platelet 333 10 3/mcL Normal 130-400 [facility] ([place]) Comment on above: Performed By: #### L IPID, VIDH, CMP, TSH, GFR #### [address] [address] Platelet mean volume (Bld) [Entitic vol] 7.5 fL Normal 7.4-10.4 [facility] ([place] Comment on above: Performed By: #### L IPID, VIDH, CMP, TSH, GFR #### [address] [address] RBC 3.52 10 6/mcL Low 4.20-5.40 [facility] ([place]) Comment on above: Performed By: #### L IPID, VIDH, CMP, TSH, GFR #### [address] [address] WBC 38.9 10 3/mcL High 4.6-10.8 [facility] ([place]) Comment on above: Performed By: #### L IPID, VIDH, CMP, TSH, GFR #### [address] [address] CMPon 05-08-2023 Albumin Level 3.4 G/dL Normal 3.4-4.8 [facility] ([place]) Comment on above: Performed By: #### L IPID, VIDH, CMP, TSH, GFR #### [address] [address] Albumin/Globulin [Mass ratio] 1.1 {ratio} Normal 1.1-2.5 [facility] ([place]) Comment on above: Performed By: #### L IPID, VIDH, CMP, TSH, GFR #### [address] [address] ALP [Catalytic activity/Vol] 79 U/L Normal 40-135 [facility] ([place]) Comment on above: Performed By: #### L IPID, VIDH, CMP, TSH, GFR #### [address] [address] ALT [Catalytic activity/Vol] 21 U/L Normal 14-59 [facility] ([place]) Comment on above: Performed By: #### L IPID, VIDH, CMP, TSH, GFR #### [address] [address] AST [Catalytic activity/Vol] 17 U/L Normal 10-40 [facility] ([place]) Comment on above: Performed By: #### L IPID, VIDH, CMP, TSH, GFR #### [address] [address] Bili Total 0.3 mg/dL Normal 0.2-1.0 [facility] ([place]) Comment on above: Result Comment: Use of this assay is not recommended for patients undergoing treatment with eltrombopag due to the potential for falsely elevated results. Performed By: #### L IPID, VIDH, CMP, TSH, GFR #### [place] [id number] BUN/Creatinine Ratio 16 ratio Normal 7-27 [facility] ([place]) Comment on above: Performed By: #### L IPID, VIDH, CMP, TSH, GFR #### [address] [address] Calcium [Mass/Vol] 8.9 mg/dL Normal 8.4-10.2 [facility] ([place]) Comment on above: Performed By: #### L IPID, VIDH, CMP, TSH, GFR #### [address] [address] Chloride [Moles/Vol] 98 mmol/L Normal 98-107 [facility] ([place]) Comment on above: Performed By: #### L IPID, VIDH, CMP, TSH, GFR #### [address] [address] CO2 [Moles/Vol] 25 mmol/L Normal 23-31 [facility] ([place]) Comment on above: Performed By: #### L IPID, VIDH, CMP, TSH, GFR #### [address] [address] Creatinine [Mass/Vol] 0.86 mg/dL Normal 0.55-1.02 [facility] ([place]) Comment on above: Performed By: #### L IPID, VIDH, CMP, TSH, GFR #### [address] [address] Electrolyte Balance 9.0 mEq/L Normal 4.0-15.0 [facility] ([place]) Comment on above: Performed By: #### L IPID, VIDH, CMP, TSH, GFR #### [address] [address] Globulin 3.0 G/dL Normal [facility] ([place]) Comment on above: Performed By: #### L IPID, VIDH, CMP, TSH, GFR #### [address] [address] Glucose [Mass/Vol] 141 mg/dL High 83-110 [facility] ([place]) Comment on above: Performed By: #### L IPID, VIDH, CMP, TSH, GFR #### [address] [address] Potassium [Moles/Vol] 3.8 mmol/L Normal 3.5-5.1 [facility] ([place]) Comment on above: Performed By: #### L IPID, VIDH, CMP, TSH, GFR #### [address] [address] Sodium [Moles/Vol] 132 mmol/L Low 136-145 [facility] ([place]) Comment on above: Performed By: #### L IPID, VIDH, CMP, TSH, GFR #### [address] [address] Total Protein 6.4 G/dL Normal 6.4-8.2 [facility] ([place]) Comment on above: Performed By: #### L IPID, VIDH, CMP, TSH, GFR #### [address] [address] Urea nitrogen [Mass/Vol] 14 mg/dL Normal 7-18 [facility] Comment on above: Performed By: #### L IPID, VIDH, CMP, TSH, GFR #### [place] [address] [place], [place] [address] CT ANGIOGRAPHY CHEST W/CONTR Ilsa 05-08-2023 CT [...] Reason for Exam: elevated d dimer FINDINGS: [id number] degenerative changes are noted in the spine. [...] 05/08/2023 12:45:07 PM Ordering Provider: CHANTAL Nunez [facility]) DIMERon 05-08-2023 D-Dimer 469 ng/mL D-DU High 0-230 [facility]) Comment on above: Result Comment: [...] IPID, VIDH, CMP, TSH, GFR #### [place] [address] LABORATORYOrdered By: SYSTEM SYSTEM on 05-08-2023 Troponin [...] Magnesium [Mass/Vol] 1.9 mg/dL Normal 1.8-2.4 [facility] ([place]) Comment on above: Performed By: #### L IPID, VIDH, CMP, TSH, GFR #### [place] [address] PBNPon 05-08-2023 Natriuretic peptide B (Bld) [Mass/Vol] 608 pg/mL High 0-450 [facility] ([place]) Comment on above: Result Comment: NT-p roBNP results of less than 300 pg/mL effectively rules out acute congestive heart failure with 99% negative predictive value. Performed By: #### L IPID, VIDH, CMP, TSH, GFR #### [place] [id number] TROPHSon 05-08-2023 Troponin I High Sensitivity 5.5 ng/L Normal 0.0-51.4 [facility] ([place]) Comment on above: Performed By: #### T [facility] #### [place] [address] Troponin I High Sensitivity 5.6 ng/L Normal 0.0-51.4 [facility] ([place]) Comment on above: Performed By: #### L IPID, VIDH, CMP, TSH, GFR #### [place] [address] XR CHEST 1 VIEWon 05-08-2023 XR CHEST [...] 05/08/2023 11:11:05 AM Ordering Provider: CHANTAL ZAPIEN [facility] ([place]) No Panel Informationon 05-05 Culture Urine 50,000 - 100,000 cfu /ml Mixed growth consistent with normal urogenital giles. [facility] Work Phone: LABORATORYOrdered By: Steff Mccarthy [...] definite cause of disease. Laboratories within the [place] and its territories are required to report all positive results to the appropriate public health authorities.Detection of analyte target(s) does not imply that the corresponding virus(es) are infectious or are the causative agents for clinical symptoms.There is a risk of false positive values resulting from cross-contamination by target organisms, their nucleic acids or amplified product, or from non-specific signals in the assay.[employer] SARS-CoV-2 Assay is a Real-Time reverse-transcriptase polymerase [...] Probable Contamination. Suggest recollection if clinically indicated. [facility] Work Phone: LABORATORYOrdered By: Steff Mccarthy [...] HMSPatient IDon 10-05-2017 OOP Invalid Interpretation Code [facility] Work Phone: Clinical Summary: Scanned Hi story Summaryon 10-05-2017 Data entered by patient exercise frequency 2 days per week Invalid Interpretation Code [facility] Work Phone: Data entered by patient exercise type walking Invalid Interpretation Code [facility] Work Phone: data entered by patient, alcohol (ethanol or ETOH) use No Invalid Interpretation Code [facility] Work Phone: data entered by patient, drug (of abuse) use No Invalid Interpretation Code [facility] Work Phone: data entered by patient, Employer Name Retired Invalid Interpretation Code [facility] Work Phone: data entered by patient, exercise history Yes Invalid Interpretation Code [facility] Work Phone: Data entered by patient, history of past surgeries AppendectomyTonsillectomyHyste rectomy Invalid Interpretation Code [facility] Work Phone: data entered by patient, past medical history High blood pressureMitral valve prolapseOsteopenia Invalid Interpretation Code [facility] Work Phone: data entered by patient, social history, current smoker never smoker Invalid Interpretation Code [facility] Work Phone: data entered by patient, social history, marital status Invalid Interpretation Code [facility] Work Phone: father of patient is alive or Invalid Interpretation Code [facility] Work Phone: Housing Type: apartment, house, mcc, trailer, none House Invalid Interpretation Code [facility] Work Phone: housing unit size (asthma environmental history, housing) (from single family to don't know) 2 Floors Invalid Interpretation Code [facility] Work Phone: mother of patient is alive or Invalid Interpretation Code [facility] Work Phone: Number of dependent children No Invalid Interpretation Code [facility] Work Phone: Clinical Summary: Marlyn Dick Summaryon 10-05-2017 endocrine ROS Denies Invalid Interpretation Code [facility] Work Phone: Gastrointestional review of systems, comment Hemorrhoids Invalid Interpretation Code [facility] Work Phone: genitourinary review of systems, E&M Denies Invalid Interpretation Code [facility] Work Phone: Lymphocytes Denies Invalid Interpretation Code [facility] Work Phone: Review of Systems Neurologic comment Numbness,Tingling,Loss Of Balance Invalid Interpretation Code [facility] Work Phone: ROS cardiovascular E&M Denies Invalid Interpretation Code [facility] Work Phone: ROS ENT E&M Denies Invalid Interpretation Code [facility] Work Phone: ROS gastrointestinal E&M Complains Invalid Interpretation Code [facility] Work Phone: ROS general E&M Denies Invalid Interpretation Code [facility] Work Phone: ROS musculoskeletal E&M Denies Invalid Interpretation Code [facility] Work Phone: ROS neurological E&M Complains Invalid Interpretation Code [facility] Work Phone: ROS Psych comment Difficulty Sleeping Invalid Interpretation Code [facility] Work Phone: ROS psychiatric E&M Complains Invalid Interpretation Code [facility] Work Phone: ROS pulmonary E&M Denies Invalid Interpretation Code [facility] Work Phone: ROS skin E&M Denies Invalid Interpretation Code [facility] Work Phone: Office Visit: New - 1st visi t with practice, Rm: 3on 10-05-2017 NEGATED: Highlighted rowDocumentation of current medications (procedure) Done Invalid Interpretation Code [facility] Work Phone: NEGATED: Highlighted rowTobacco smoking status NHIS Tobacco smoking status NHIS Invalid Interpretation Code [facility] Work Phone: Vital Signs Date Time Vital Sign Value Performing Clinician Facility 10-04-2023 13:09-0400 Blood Pressure Location LEONARDO REICHFIELD DO [facility] 10-04-2023 13:09-0400 Blood Pressure Method LEONARDO REICHFIELD DO [facility] 10-04-2023 13:09-0400 Diastolic Blood Pressure Non-Invasive 68 mm[Hg] LEONARDO REICHFIELD DO [facility] 10-04-2023 13:09-0400 Heart rate 82 /min LEONARDO REICHFIELD DO [facility] 10-04-2023 13:09-0400 Respiratory rate 18 /min LEONARDO REICHFIELD DO [facility] 10-04-2023 13:09-0400 Systolic Blood Pressure Non-Invasive 143 mm[Hg] LEONARDO REICHFIELD DO [facility] 10-04-2023 10:15-0400 Blood Pressure Location LEONARDO REICHFIELD DO [facility] 10-04-2023 10:15-0400 Blood Pressure Method LEONARDO REICHFIELD DO [facility] 10-04-2023 10:15-0400 Body temperature 98.06 [degF] LEONARDO REICHFIELD DO [facility] 10-04-2023 10:15-0400 Diastolic Blood Pressure Non-Invasive 67 mm[Hg] [facility] 10-04-2023 10:15-0400 Heart rate 84 /min [facility] DO [facility] 10-04-2023 10:15-0400 Respiratory rate 18 /min [facility] DO [facility] 10-04-2023 10:15-0400 Systolic Blood Pressure Non-Invasive 153 mm[Hg] [facility] DO [facility] 09-21-2023 09:46-0400 Blood Pressure Location GOKUL REYES MD [facility] 09-21-2023 09:46-0400 Blood Pressure Method GOKUL REYES MD [facility] 09-21-2023 09:46-0400 Body temperature 98.24 [degF] GOKUL REYES MD [facility] 09-21-2023 09:46-0400 Diastolic Blood Pressure Non-Invasive 62 mm[Hg] GOKUL REYES MD [facility] 09-21-2023 09:46-0400 Heart rate 72 /min GOKUL REYES MD [facility] 09-21-2023 09:46-0400 Respiratory rate 18 /min GOKUL REYES MD [facility] 09-21-2023 09:46-0400 Systolic Blood Pressure Non-Invasive 152 mm[Hg] GOKUL REYES MD [facility] 05-08-2023 13:30-0500 Diastolic Blood Pressure Non-Invasive 75 mm[Hg] DR CHANTAL ZAPIEN MD [facility] 05-08-2023 13:30-0500 Heart rate 81 /min DR CHANTAL ZAPIEN MD [facility] 05-08-2023 13:30-0500 Respiratory rate 14 /min DR CHANTAL ZAPIEN MD [facility] 05-08-2023 13:30-0500 Systolic Blood Pressure Non-Invasive 177 mm[Hg] DR CHANTAL ZAPIEN MD [facility] 05-08-2023 12:42-0500 Diastolic Blood Pressure Non-Invasive 77 mm[Hg] DR CHANTAL ZAPIEN MD [facility] 05-08-2023 12:42-0500 Heart rate 91 /min DR CHANTAL ZAPIEN MD [facility] 05-08-2023 12:42-0500 Systolic Blood Pressure Non-Invasive 177 mm[Hg] DR CHANTAL ZAPIEN MD [facility] 05-08-2023 10:45-0500 Diastolic Blood Pressure Non-Invasive 64 mm[Hg] DR CHANTAL ZAPIEN MD [facility] 05-08-2023 10:45-0500 Heart rate 77 /min DR CHANTAL ZAPIEN MD [facility] 05-08-2023 10:45-0500 Systolic Blood Pressure Non-Invasive 134 mm[Hg] DR CHANTAL ZAPIEN MD [facility] 05-08-2023 10:15-0500 Heart rate 77 /min DR CHANTAL ZAPIEN MD [facility] 05-08-2023 09:06-0500 Body temperature 97.7 [degF] DR CHANTAL ZAPIEN MD [facility] 05-08-2023 09:06-0500 Body weight 59.[address] CHANTAL ZAPIEN MD [facility] 05-08-2023 09:06-0500 Respiratory rate 22 /min DR CHANTAL ZAPIEN MD [facility] NEGATED: Highlighted [id number] 11:06-0400 BMI (Body Mass Index) 24.12 kg/m2 Sophie Winklestine [employer] [facility] Work Phone: NEGATED: Highlighted [id number] 11:06-0400 BP Diastolic 85 mm[Hg] Sophie Winklestine [employer] [facility] Work Phone: NEGATED: Highlighted [id number] 11:06-0400 BP Diastolic 83 mm[Hg] Sophie Winklestine [employer] [facility] Work Phone: NEGATED: Highlighted [id number] 11:06-0400 BP Systolic 152 mm[Hg] Sophie Winklestine [employer] [facility] Work Phone: NEGATED: Highlighted [id number] 11:06-0400 BP Systolic 169 mm[Hg] Sophie Winklestine [employer] [facility] Work Phone: NEGATED: Highlighted [id number] 11:06-0400 Height 162.56 cm Sophie Winklestine [employer] [facility] Work Phone: NEGATED: Highlighted [id number] 11:06-0400 Height 163 cm Sophie Winklestine [employer] [facility] Work Phone: NEGATED: Highlighted [id number] 11:06-0400 Pulse (Heart Rate) 74 /min Sophie Winklestine [employer] [facility] Work Phone: NEGATED: Highlighted [id number] 11:040 Weight 63.5 kg Sophie Durham LPN [facility] Work Phone: NEGATED: Highlighted [id number] 11:040 Weight 64 kg Sophie Durham LPN [facility] Work Phone: Encounters Encounter Date Encounter Type Care Provider Facility Start: 03-30-2024 End: 03-30-2024 ambulatory NURIS L LEIGH PAINT TECHNICIAN-FLUORESCENT SOLUTION MIXER Facility:[facility] Start: 03-30-2024 End: 03-30-2024 Patient encounter procedure NURIS LEIGH PAINT TECHNICIAN-FLUORESCENT SOLUTION MIXER [facility] Start: 02-14-2024 End: 02-14-2024 ambulatory LIZZETTE MÓNICA DO Facility:[facility] Start: 02-14-2024 End: 02-14-2024 Patient encounter procedure LIZZETTE LYNCHLAY DO [facility] Start: 12-16-2023 End: 12-16-2023 ambulatory LIZZETTE MÓNICA DO Facility:[facility] Start: 11-22-2023 End: 11-26-2023 ambulatory NURIS L LEIGH PAINT TECHNICIAN-FLUORESCENT SOLUTION MIXER Facility:[facility] Start: 11-22-2023 End: 11-26-2023 Outreach Lab NURIS LEIGH PAINT TECHNICIAN-FLUORESCENT SOLUTION MIXER [facility] Start: 11-08-2023 End: 11-08-2023 ambulatory LIZZETTE MÓNICA DO Facility:[facility] Start: 11-08-2023 End: 11-08-2023 Patient encounter procedure LIZZETTE MÓNICA DO [facility] Start: 11-03-2023 End: 11-03-2023 ambulatory LIZZETTE MÓNICA DO Facility:[facility] Start: 11-03-2023 End: 11-03-2023 Patient encounter procedure LIZZETTE MÓNICA DO [facility] Start: 10-13-2023 End: 10-13-2023 ambulatory BENITO RICHARDSON PAINT TECHNICIAN-FL[employer]CENT [employer]UTION MIXER Facility:[facility] Start: 10-04-2023 End: 10-04-2023 Emergency department patient visit LEONARDO HOWE DO [facility] Start: 09-30-2023 ambulatory LIZZETTE SALES DO Facil ity:[facility] Start: 09-28-2023 End: 09-28-2023 ambulatory LIZZETTE SALES DO Facility:[facility] Start: 09-24-2023 End: 09-24-2023 ambulatory LEONARDO KAREN PAINT TECHNICIAN-FLUORESCENT [employer]UTION MIXER Facility:[facility] Start: 09-24-2023 End: 09-24-2023 Patient encounter procedure LEONARDO KAREN PAINT TECHNICIAN-FLUORESCENT SOLUTION MIXER [facility] Start: 09-21-2023 End: 09-21-2023 Emergency department patient visit GOKUL REYES MD [facility] Start: 09-13-2023 End: 09-17-2023 ambulatory LEONARDO KAREN PAINT TECHNICIAN-FLUORESCENT [employer]UTION MIXER Facility:[facility] Start: 09-09-2023 End: 09-09-2023 ambulatory GALE VACCARELLI PA-C Facility:[facility] Start: 09-09-2023 End: 09-09-2023 Patient encounter procedure GALE VACCARELLI PA-C [facility] Start: 08-03-2023 End: 08-07-2023 ambulatory LIZZETTE SALES DO Facility:[facility] Start: 08-03-2023 End: 08-07-2023 Outreach Lab LIZZETTE SALES DO [facility] Start: 05-13-2023 End: 05-13-2023 ambulatory LIZZETTE SALES DO Facility:[facility] Start: 05-13-2023 End: 05-13-2023 Patient encounter procedure LIZZETTE SALES DO [facility] Start: 05-08-2023 End: 05-08-2023 Emergency department patient visit DR CHANTAL ZAPIEN MD [facility] Start: 05-04-2023 End: 05-08-[address] CHELI BARRIGA DO Facility:[facility] Start: 05-04-2023 End: 05-08-[address] CHELI BARRIGA DO [facility] Start: 08-28-2022 End: 09-01-2022 Outreach Lab LIZZETTE SALES DO [facility] Start: 08-13-2022 End: 08-13-2022 Patient encounter procedure LIZZETTE SALES DO [facility] Start: 08-05-2022 End: 08-09-2022 Outreach Lab LIZZETTE SALES DO [facility] Start: 07-17-2022 End: 07-17-2022 Patient encounter procedure LIZZETTE SALES DO [facility] Start: 07-07-2022 End: 07-07-2022 Patient encounter procedure LIZZETTE SALES DO [facility] Start: 05-12-2022 End: 05-12-2022 Patient encounter procedure LIZZETTE SALES DO [facility] Start: 02-24-2022 End: 02-24-2022 Patient encounter procedure JOSE NOGUEIRA PAINT TECHNICIAN-FLUORESCENT SOLUTION MIXER [facility] Start: 11-25-2021 End: 11-25-2021 Patient encounter procedure LIZZETTE SALES DO [facility] Start: 10-29-2021 End: 10-29-2021 Patient encounter procedure LIZZETTE SALES DO [facility] Start: 07-04-2021 End: 07-04-2021 Patient encounter procedure LIZZETTE SALES DO [facility] Start: 07-02-2021 End: 07-06-2021 Outreach Lab LIZZETTE Monreal MÓNICA DO [facility] Start: 06-03-2021 End: 06-03-2021 Patient encounter procedure RAZIA STRONG DO [facility] Start: 05-12-2021 End: 05-12-2021 Patient encounter procedure LIZZETTE SALES DO [facility] Start: 05-06-2021 End: 05-06-2021 Patient encounter procedure LIZZETTE SALES DO [facility] Procedures Date Procedure Procedure Detail [...] Education \cps-sql1\CPS_ PtEducation\htn .pdf [facility] Work Phone: Immunizations Immunization Date Immunization Notes Care Provider [facility] 05-06-2021 COVID-19, mRNA, LNP- S, PF, 100 mcg/ 0.5 mL dose; Translations: [Moderna COVID-19 Vaccine] LIZZETTE SALES DO [facility] 09-25-2020 zoster vaccine recombinant LIZZETTE SALES DO [facility] 08-13-2020 COVID-19, mRNA, LNP- S, PF, 100 mcg/ 0.5 mL dose; Translations: [Moderna COVID-19 Vaccine] LIZZETTE SALES DO [facility] 07-16-2020 COVID-19, mRNA, LNP- S, PF, 100 mcg/ 0.5 mL dose; Translations: [Moderna COVID-19 Vaccine] LIZZETTE SALES DO [facility] 04-19-2020 zoster vaccine recombinant LIZZETTE SALSE DO [facility] 04-19-2020 zoster vaccine, live LIZZETTE SALES DO [facility] Comment on above: Result Comment: [] [facility] 07-09-2015 pneumococcal conjuga te vaccine, 13 valent LIZZETTE SALES DO [facility] 12-07-2013 tetanus toxoid, redu xiao diphtheria toxoid, and acellular pertussis vaccine, adsorbed LIZZETTE SALES DO [facility] 08-02-2013 pneumococcal polysaccharide vaccine, 23 valent LIZZETTE SALES DO [facility] 12-15-2012 zoster vaccine, live LIZZETTE SALES DO [facility] 07-01-2009 hepatitis A and hepatitis B vaccine LIZZETTE SALES DO [facility] 05-21-2009 adenovirus, type 4 a nd type 7, live, oral LIZZETTE SALES DO [facility] 05-21-2009 hepatitis A vaccine, adult dosage LIZZETTE SALES DO [facility] 05-21-2009 hepatitis B vaccine, adult dosage LIZZETTE FAYEY DO [facility] No information available. Sophie Durham LPN [facility] Work Phone: Payers Date Payer Category Payer Unknown [id number] 1940 Unknown [id number] 2.16.8 [id number] 1940 Unknown [id number] 2.16.8 40.1.173898.3.579.2.62 1939 Unknown [id number] 2.16.8 40.1.670068.3.579.2.62 1939 Unknown [id number] 2.16.8 40.1.077802.3.579.2.62 1939 Unknown [id number] 2.16.8 40.1.418561.3.579.2.62 1939 Unknown [id number] 2.16.8 40.1.945227.3.579.2. 1939 Unknown [id number] 2.16.8 40.1.570636.3.579.2. 1939 Unknown [id number] 2.16.8 40.1.187630.3.579.2.62 1939 Unknown [id number] 2.16.8 40.1.361764.3.579.2. 1939 Unknown [id number] 2.16.8 40.1.057678.3.579.2.62 1939 Unknown [id number] 2.16.8 40.1.863080.3.579.2.62 1939 Unknown [id number] 2.16.8 40.1.860400.3.579.2.62 1939 Unknown [id number] 2.16.8 40.1.840331.3.579.2. 1939 Unknown [id number] 2.16.8 40.1.227226.3.579.2.62 1939 Unknown [id number] 2.16.8 40.1.749262.3.579.2627 1939 Unknown [id number] 2.16.8 40.1.364136.3.579.2.627 1939 Unknown [id number] 2.16.8 40.1.910673.3.579.2.627 1939 Unknown [id number] 2.16.8 40.1.030818.3.579.2.627 Social History Date Type Detail Facility Start: 04-09-2020 Never smoked t obacco (finding) [facility] Sex Assigned At Female [facility] NEGATED: Highlighted rowStart: 10-05-2017 End: 10-05-2017 Alcohol use ETOH USE No [facility] Work Phone: NEGATED: Highlighted rowStart: 10-05-2017 End: 10-05-2017 Details of drug misuse behavior DRUG USE No [facility] Work Phone: NEGATED: Highlighted rowStart: 10-05-2017 End: 10-05-2017 How many days of moderate to strenuous exercise, like a brisk walk, did you do in the last 7 days? EXERCISEFREQ 2 days per week [facility] Work Phone: NEGATED: Highlighted rowStart: 10-05-2017 End: 10-05-2017 Assertion Never smoker [facility] Work Phone: Functional Status Date Assessment Result Facility 10-04-2023 Functional Status Independent [facility] 10-04-2023 Functional Status ID band on, Call device within reach, Bed in low position, Wheels locked, Upper/Half-Length side-rails up, Visitor at bedside, Safety level maintained [facility] 09-21-2023 Functional Status Independent [facility] 09-21-2023 Functional Status ID band on, Call device within reach, Bed in low position, Wheels locked, Upper/Half-Length side-rails up, Visitor at bedside, Safety level maintained [facility] 05-08-2023 Functional Status Assistive Device None A [facility] 05-08-2023 Functional Status Repositions self [facility] Status Date Assessment Result Facility 10-04-2023 Mental Status Orientation Oriented x 4 [facility] 10-04-2023 [facility] 09-21-2023 Mental Status Orientation Oriented x 4 [facility] 09-21-2023 Mental Status [facility] 05-08-2023 Mental Status Orientation Oriented x 4 [facility] Clinical Notes 07-17-2022 to 11-23-2023 RadiologyLaboratoryRadiologyRadiologyLaboratoryRadiologyLaboratoryRadiologyLabor atoryRadiologyLaboratoryRadiologyRadiologyRadiologyRadiologyRadiologyRadiology [...] Locations *1: This test was performed at: [facility], [address] [place] [address], [id number] , [facility] ([place]) 11-08-2023 Note ORIGINAL EXAMINATION: CT OF THE [...] 11/08/2023 3:25:32 PM Ordering Provider: LIZZETTE SALES [facility] 11-03-2023 Note ORIGINAL EXAMINATION: ONE SUPINE [...] 11/03/2023 10:51:20 AM Ordering Provider: LIZZETTE SALES [facility] 10-04-2023 Hospital Discharge instructions Patient Education 10/04/2023 12:45:26 AA Blank DI (CUSTOM) Result type:CT Abd/Pelvis w/ IV Contrast Only Result date:October 04, 2023 11:49 EDT Result status:Auth (Verified) Result title:CT ABD/PELVIS W/ IV CONTRAST ONLY Performed by:NII CARMEN MD on October 04, 2023 11:37 EDT Cosigned by:NII CARMEN MD Verified by:NII CARMEN MD on October 04, 2023 11:49 EDT Encounter info:[id number], [facility], Emergency, 10/04/2023 - Contributor system:[employer] * Final Report * [id number] ORIGINAL EXAMINATION: CT OF THE ABDOMEN AND [...] Document Reviewed: 05/25/2014 ExitCare Patient Information 2015 [employer]. This information is not intended to replace [...] are taking other medicines. You may use yezb-dgp-ktilbhu medicine to control pain, unless another pain [...] or as directed by your healthcare provider [id number] [employer]. [address] [place] [address]. All rights reserved. This information is not [...] foods again, start with small amounts of hwpd-cw-zederg, low-fat foods. These include apple sauce, toast, [...] increase stomach acid. Don't use aspirin or yyqo-pio-vguvopd pain and fever medicines, if possible. This includes nonsteroidal anti-inflammatory drugs (NSAIDs). Lose excess weight. Finish eating at least 2 hours before you go to bed or lie down. Raise the head of your bed. [phone] [employer]. [address] [place] [address]. All rights reserved. This information is not intended as a substitute for professional medical care. Always follow your healthcare professional's instructions. Follow Up Care 10/04/2023 10:06:48 With:AWAIS SUN MD Address: [address] [address] [phone] When:2-4 days With:your back doctor Address: When:2-4 days With:Go to emergency room if symptoms worsen Address:Unknown When:2-4 days With:LIZZETTE SALES DO Address: [address] [facility] [place] [phone] When:2-[address] [facility] 10-04-2023 Note Discharge Instructions Thank you for allowing [facility] to assist you with your healthcare needs. [...] Where: [address] [place] [address]- [phone] Follow Up with your back doctor When Within 2-4 days Where: Follow Up with Go to emergency room if symptoms worsen When Within 2-4 days Follow Up with LIZZETTE SALES DO When Within 2-4 days Where: [address] [facility] [place] [address]- [phone] Allergies NKA Medications Please ask your primary [...] October 04, 2023 11:49 EDT Encounter info: [id number], [facility] 10[facility]04[facility]23 - Contributor system: [employer] * Final Report * [id number] ORIGINAL EXAMINATION: CT OF THE ABDOMEN AND [...] 05/24/2006 Document Revised: 05/10/2013 Document Reviewed: 05/25/2014 [facility] Patient Information 2015 [facility]. This information is not intended to replace [...] are taking other medicines. You may use msht-bri-zxrlueg medicine to control pain, unless another pain [...] or as directed by your healthcare provider [phone] [employer]. [address] [place] [address]. All rights reserved. This information is not [...] foods again, start with small amounts of qmne-jl-qgvmus, low-fat foods. These include apple sauce, toast, [...] increase stomach acid. Don't use aspirin or agpb-cai-hglhfgc pain and fever medicines, if possible. This includes nonsteroidal anti-inflammatory drugs (NSAIDs). Lose excess weight. Finish eating at least 2 hours before you go to bed or lie down. Raise the head of your bed. 3624-7055 [employer]. [address] [place] [address], [place] [address]. All rights reserved. This information is not intended as a substitute for professional medical care. Always follow your healthcare professional's instructions. Additional Information VACCINATE! IT SAVES LIVES! Members of the community who have not yet received the COVID-19 vaccine and would like to receive it can visit one of [facility] vaccine clinics. There are many vaccine clinic locations within the [facility]. For locations and available times, please visit [email or web address] [email or web address] It is important to note that some COVID mobile vaccine clinics are held outdoors and may be canceled in rainy or stormy conditions. To learn more about pediatric vaccinations (ages 5-11), we invite you to visit the [facility] webpage. https://www.[facility]ss.org/pag es/6877-Bzzcv-Ezshucctyik-Frequent tn-Xkfva-Pmjphhsjf.html To learn more about the COVID-19 vaccine, we invite you to visit the CDC website for a list of frequently asked questions. https://www.cdc.gov/coronavirus/-ncov/vaccines/faq.html [facility] Patient Portal Access Instructions: Stay connected with your healthcare team and access your personal medical information anytime with the [facility] Patient Portal. If you would like a full copy of your medical records please contact the [facility] Medical Records Department Wednesday through Wednesday between 8a.m. and 4:30p.m. Please follow the directions below to access the portal: 1.Access the email account you provided upon registration to the [facility].2.Look for an invitation email from [facility].3.Open the email and access the invitation link: Accept Invitation to [facility]4.Fill in the required shah to create your account. Sign into [email or web address] with your username and password that you [...] you will allow to register on the [facility] Patient Portal for access to your information. You can also access the [facility] Patient Portal on the [employer] denis. Simply click on Health Records under [...] Call your local pharmacy or go to [email or web address] to find one close to you.3.Make use of household items: Use cat litter or old coffee grounds to dispose medications if other options are not available. Mix your drugs with these household products, seal them in an airtight container and throw it into the garbage. Call [facility]: [phone] to be sure your drugs can be [...] aware that I should contact my doctor. Patient/Regional Project Manager Signature: Date/Time: Relationship to Patient: ___ Witness Name/Signature: Date/Time: [facility] 10-04-2023 Note ORIGINAL EXAMINATION: CT OF [...] 10/04/2023 12:06:02 PM Ordering Provider: LEONARDO GUIDRY [facility] 09-21-2023 Hospital Discharge instructions Patient Education [...] are taking other medicines. You may use vtzt-xqa-lorjudn medicine as directed on the bottle to [...] Numbness in the groin or genital area 3621-1654 [employer]. [address] [place] [address]. All rights reserved. This information is not intended as a substitute for professional medical care. Always follow your healthcare professional's instructions. Follow Up Care 09/21/2023 09:32:16 With:LIZZETTE SALES Address: [address] [place] [address] [phone] Business (1) When:1-2 days Comments:Contact your doctor's office to schedule an outpatient MRI of your lumbar spine.Limit activity as tolerated.Continue pain medication as prescribed by your doctor.Use Upper Tract as prescribed for severe pain. Take Zofran prior to try to prevent GI side effects of the pain medication.Return to the ED if symptoms worsen. [facility] 09-21-2023 Note Discharge Instructions Thank you for allowing [facility] to assist you with your healthcare needs. [...] medication as prescribed by your doctor. Use Upper Tract as prescribed for severe pain. Take Zofran prior to try to prevent GI side effects of the pain medication. Return to the ED if symptoms worsen. Where: [address] [place] [phone] [phone] Business (1) Allergies NKA Medications Please ask your primary doctor or pharmacist before taking any other medication not listed, including over the counter drugs, herbal medications, vitamins and or supplements as they may interact with your home medications. What How Much When Why Instructions Last Dose New acetaminophen-hydrocodone (Upper Tract 325- 5 mg oral tablet) 1 tab(s) [...] are taking other medicines. You may use hxae-iqp-opnzsfz medicine as directed on the bottle to [...] Numbness in the groin or genital area 1544-5355 [employer]. [address] [place] [address], [place] [address]. All rights reserved. This information is not intended as a substitute for professional medical care. Always follow your healthcare professional's instructions. Additional Information VACCINATE! IT SAVES LIVES! Members of the community who have not yet received the COVID-19 vaccine and would like to receive it can visit one of [facility] vaccine clinics. There are many vaccine clinic locations within the [facility]. For locations and available times, please visit [email or web address] v/. It is important to note that some COVID mobile vaccine clinics are held outdoors and may be canceled in rainy or stormy conditions. To learn more about pediatric vaccinations (ages 5-11), we invite you to visit the [facility] webpage. https://www.[facility].org/pag es/2592-Jrfnc-Gsxrrygwuru-Frequent vh-Oguhz-Ihsbiqtou.html To learn more about the COVID-19 vaccine, we invite you to visit the CDC website for a list of frequently asked questions. https://www.cdc.gov/coronavirus/ 19-ncov/vaccines/faq.html [facility] Patient Portal Access Instructions: Stay connected with your healthcare team and access your personal medical information anytime with the [facility] Patient Portal. If you would like a full copy of your medical records please contact the [facility] Medical Records Department Wednesday through Wednesday between 8a.m. and 4:30p.m. Please follow the directions below to access the portal: 1.Access the email account you provided upon registration to the hospital.2.Look for an invitation email from [facility].3.Open the email and access the invitation link: Accept Invitation to [facility]4.Fill in the required shah to create your account. Sign into [email or web address] with your username and password that you [...] you will allow to register on the [facility] Patient Portal for access to your information. You can also access the [facility] Patient Portal on the [employer] denis. Simply click on Health Records under [...] Call your local pharmacy or go to [email or web address] to find one close to you.3.Make use of household items: Use cat litter or old coffee grounds to dispose medications if other options are not available. Mix your drugs with these household products, seal them in an airtight container and throw it into the garbage. Call [facility]: [phone] to be sure your drugs can be [...] aware that I should contact my doctor. Patient/Regional Project Manager Signature: Date/Time: Relationship to Patient: ___ Witness Name/Signature: Date/Time: [facility] 09-15-2023 Note . MICRO - Microbiology [...] Locations *1: This test was performed at: [address], [address] [place] [address] ([place]) 05-08-2023 Hospital Discharge instructions Patient Education 05/08/2023 [...] Swelling, pain, or redness in one leg 8936-0519 [employer]. [address] [place] [address]. All rights reserved. This information is not intended as a substitute for professional medical care. Always follow your healthcare professional's instructions. Follow Up Care 05/08/2023 09:01:37 With:LIZZETTE SALES DO Address: [address] [place] [address] [place] [phone] When:2-[address] [facility] 05-08-2023 Note Discharge Instructions Thank you for allowing [facility] to assist you with your healthcare needs. [...] DO When Within 2-4 days Where: [address] [facility] [place] [phone] Allergies NKA Medications Please ask your primary [...] a broken bone while taking this medicine director telecommunications or more than once per day. What [...] may report side effects to FDA at 5-242-WQG-7299. What other drugs will affect pantoprazole? Tell your doctor about all your other medicines, especially: digoxin; methotrexate; or a diuretic or 'water pill.' This list is not complete. Other drugs may affect pantoprazole, including prescription and hwsb-ucs-urzgxoh medicines, vitamins, and herbal products. Not all [...] to ensure that the information provided by [employer]. ('[employer]') is accurate, up-to-date, and complete, but no guarantee is made to that effect. Drug information contained herein may be time sensitive. [employer] information has been compiled for use by healthcare practitioners and consumers in the [place] and therefore [employer] does not warrant that uses outside of the [place] are appropriate, unless specifically indicated otherwise. [facility] drug information does not endorse drugs, diagnose patients or recommend therapy. [employer] drug information is an informational resource designed [...] effective or appropriate for any given patient. [employer] does not assume any responsibility for any aspect of healthcare administered with the aid of information [employer] provides. The information contained herein is not intended to cover all possible uses, directions, precautions, warnings, drug interactions, allergic reactions, or adverse effects. If you have questions about the drugs you are taking, check with your doctor, nurse or pharmacist. Copyright 0190-5404 [employer]. Version: 21.. Revision Date: 06/10/2020. Education Materials [...] Swelling, pain, or redness in one leg 4106-5779 [employer]. [address] [place] [address], [place] [address]. All rights reserved. This information is not intended as a substitute for professional medical care. Always follow your healthcare professional's instructions. Additional Information VACCINATE! IT SAVES LIVES! Members of the community who have not yet received the COVID-19 vaccine and would like to receive it can visit one of [facility] vaccine clinics. There are many vaccine clinic locations within the [facility]. For locations and available times, please visit [email or web address] v/. It is important to note that some COVID mobile vaccine clinics are held outdoors and may be canceled in rainy or stormy conditions. To learn more about pediatric vaccinations (ages 5-11), we invite you to visit the [facility] webpage. https://www.[employer]ono[employer].org/pag es/7630-Btxid-Ipemzenudrw-Frequent ju-Sslly-Krtkstrqu.html To learn more about the COVID-19 vaccine, we invite you to visit the CDC website for a list of frequently asked questions. https://www.cdc.gov/coronavirus/20 19-ncov/vaccines/faq.html [facility] Patient Portal Access Instructions: Stay connected with your healthcare team and access your personal medical information anytime with the [facility] Patient Portal. If you would like a full copy of your medical records please contact the [facility] Medical Records Department Wednesday through Wednesday between 8a.m. and 4:30p.m. Please follow the directions below to access the portal: 1.Access the email account you provided upon registration to the hospital.2.Look for an invitation email from [facility].3.Open the email and access the invitation link: Accept Invitation to [facility].Fill in the required shah to create your account. Sign into [email or web address] with your username and password that you [...] you will allow to register on the [facility] Patient Portal for access to your information. You can also access the [facility] Patient Portal on the [employer] denis. Simply click on Health Records under Health Data and then click on the [employer] logo. HOW TO SAFELY DISPOSE OF PRESCRIPTION [...] Call your local pharmacy or go to [email or web address] to find one close to you.3.Make use of household items: Use cat litter or old coffee grounds to dispose medications if other options are not available. Mix your drugs with these household products, seal them in an airtight container and throw it into the garbage. Call [facility]: [phone] to be sure your drugs can be [...] aware that I should contact my doctor. Patient/Regional Project Manager Signature: Date/Time: Relationship to Patient: ___ Witness Name/Signature: Date/Time: [facility] 05-08-2023 Note ORIGINAL EXAMINATION: CTA OF [...] Reason for Exam: elevated d dimer FINDINGS: Uhsu-yh-tceyttwx degenerative changes are noted in the spine. [...] 05/08/2023 12:45:07 PM Ordering Provider: CHANTAL ZAPIEN [facility] 05-08-2023 Note ORIGINAL EXAMINATION: ONE XRAY [...] 05/08/2023 11:11:05 AM Ordering Provider: CHANTAL ZAPIEN [facility] 05-08-2023 Note Sinus rhythm Electronic Signature: CHANTAL ZAPIEN MD 05/08/2023 09:34:[address] [facility] 05-06-2023 Note . MICRO - Microbiology [...] Locations *1: This test was performed at: [facility], [address] [place] [address], [id number] , [facility] ([place]) 08-05-2022 SARS-CoV-2 (COVID-19) RNA BREANNA+probe Ql (Nph) [...] 07/17/2022 6:24:30 PM Ordering Provider: LIZZETTE SALES [facility] 07-17-2022 Note ORIGINAL EXAMINATION: SOFT TISSUE [...] 07/17/2022 6:24:30 PM Ordering Provider: LIZZETTE SALES [facility] Evaluation + Plan note Future Appointments Appointment Date:05/12/2021 10:00:00 AM Scheduled Provider: Location:[facility] Appointment Type:BD Bone Density DEXA Axial Skeleton Appointment Date:10/29/2021 08:00:00 AM Scheduled Provider:LIZZETTE SALES DO Location:[facility] Appointment Type: OV Future Scheduled TestsBD Bone Density DEXA Axial Skeleton 05/12/[address] [facility] Evaluation + Plan note Future Appointments Appointment Date:10/29/2021 08:00:00 AM Scheduled Provider:LIZZETTE SALES DO Location:[facility] Appointment Type: OV [facility] Evaluation + Plan note Future Appointments Appointment Date:10/29/2021 08:00:00 AM Scheduled Provider:LIZZETTE SALES DO Location:[facility] Appointment Type: OV Future Scheduled TestsCOVID-19 Only (AO) 06/02/[address] [facility] Evaluation + Plan note Future Appointments Appointment Date:05/06/2022 08:00:00 AM Scheduled Provider:LIZZETTE SALES DO Location:[facility] Appointment Type:PC Wellness Medicare [facility] Evaluation + Plan note Future Appointments Appointment Date:03/10/2022 01:30:00 PM Scheduled Provider:LIZZETTE SALES DO Location:[facility] Appointment Type:PC OV Follow Up Appointment Date:05/06/2022 08:00:00 AM Scheduled Provider:LIZZETTE SALES DO Location:[facility] Appointment Type:PC Wellness Medicare [facility] Evaluation + Plan note Future Appointments Appointment Date:09/02/2022 09:00:00 AM Scheduled Provider:LIZZETTE SALES DO Location:[facility] Appointment Type:PC OV Follow Up [facility] Evaluation + Plan note Future Appointments Appointment Date:08/28/2022 09:00:00 AM Scheduled Provider:LIZZETTE SALES DO Location:[facility] Appointment Type:PC OV Follow Up Diagnostic Tests PendingVitamin B12 Level 07/07/22 Future Scheduled TestsUS Soft Tissue Mass 07/07/[address] [facility] Evaluation + Plan note Future Appointments Appointment Date:08/28/2022 09:00:00 AM Scheduled Provider:LIZZETTE SALES DO Location:[facility] Appointment Type:PC OV Follow Up [facility] Evaluation + Plan note Future Appointments Appointment Date:10/23/2022 09:30:00 AM Scheduled Provider:LIZZETTE SALES DO Location:[facility] Appointment Type:PC OV [facility] Evaluation + Plan note Future Appointments Appointment Date:05/11/2023 10:30:00 AM Scheduled Provider:LIZZETTE SALES DO Location:[facility] Appointment Type: Wellness Medicare [facility] Evaluation + Plan note Future Appointments Appointment Date:08/03/2023 11:00:00 AM Scheduled Provider:LIZZETTE SALES DO Location:[facility] Appointment Type:PC OV Future Scheduled TestsBD Bone Density DEXA Axial Skeleton 05/11/[address] [facility] Evaluation + Plan note Future Appointments Appointment Date:12/02/2023 11:00:00 AM Scheduled Provider:LIZZETTE SALES DO Location:[facility] Appointment Type:PC OV Future Scheduled TestsThyroid Stimulating Hormone 08/03/23BD Bone Density DEXA Axial Skeleton 05/11/[address] [facility] Evaluation + Plan note Future Appointments Appointment Date:12/14/2023 11:00:00 AM Scheduled Provider:LIZZETTE SALES DO Location:[facility] Appointment Type:PC OV Future Scheduled TestsThyroid Stimulating Hormone 08/03/23BD Bone Density DEXA Axial Skeleton 05/11/[address] [facility] Evaluation + Plan note Future Appointments Appointment Date:09/22/2023 08:00:00 AM Scheduled Provider:LIZZETTE SALES DO Location:[facility] Appointment Type:PC OV Appointment Date:09/24/2023 09:30:00 AM Scheduled Provider: Silver:[facility] Appointment Type:CT Abdomen and Pelvis w/o Contrast Appointment Date:12/14/2023 11:00:00 AM Scheduled Provider:LIZZETTE SALES DO Location:[facility] Appointment Type:PC OV Future Scheduled TestsThyroid Stimulating Hormone 08/03/23BD Bone Density DEXA Axial Skeleton 05/11/23CT Abdomen and Pelvis w/o contrast 09/24/[address] [facility] Evaluation + Plan note Future Appointments Appointment Date:11/03/2023 09:00:00 AM Scheduled Provider:LIZZETTE SALES DO Location:[facility] Appointment Type:PC OV Appointment Date:12/14/2023 11:00:00 AM Scheduled Provider:LIZZETTE SALES DO Location:[facility] Appointment Type:PC OV Future Scheduled TestsBasic Metabolic Panel 09/22/23Thyroid Stimulating Hormone 08/03/23BD Bone Density DEXA Axial Skeleton 05/11/23MRI Spine Lumbar w/ + w/o Contrast 09/22/[address] [facility] Evaluation + Plan note Future Appointments Appointment Date:10/05/2023 12:30:00 PM Scheduled Provider:LIZZETTE SALES DO Location:[facility] Appointment Type:PC OV ED Follow Up Appointment Date:11/03/2023 09:00:00 AM Scheduled Provider:LIZZETTE SALES DO Location:[facility] Appointment Type:PC OV Appointment Date:12/14/2023 11:00:00 AM Scheduled Provider:LIZZETTE SALES DO Location:[facility] Appointment Type:PC OV Future Scheduled TestsBD Bone Density DEXA Axial Skeleton 10/01/23MRI Spine Lumbar w/ + w/o Contrast 09/22/[address] [facility] Evaluation + Plan note Future Appointments Appointment Date:12/14/2023 11:00:00 AM Scheduled Provider:LIZZETTE SALES DO Location:[facility] Appointment Type:PC OV Future Scheduled TestsBD Bone Density DEXA Axial Skeleton 10/01/23CT Abdomen and Pelvis w/ contrast 11/03/23MRI Spine Lumbar w/ + w/o Contrast 09/22/[address] [facility] Evaluation + Plan note Future Appointments Appointment Date:12/14/2023 11:00:00 AM Scheduled Provider:LIZZETTE SALES DO Location:[facility] Appointment Type:PC OV Future Scheduled TestsBD Bone Density DEXA Axial Skeleton 10/01/23MRI Spine Lumbar w/ + w/o Contrast 09/22/[address] [facility] Evaluation + Plan note Future Appointments Appointment Date:02/16/2024 09:30:00 AM Scheduled Provider:LIZZETTE SALES DO Location:[facility] Appointment Type:PC OV Future Scheduled TestsBD Bone Density DEXA Axial Skeleton 10/01/23MRI Spine Lumbar w/ + w/o Contrast 09/22/[address] [facility] Evaluation + Plan note Future Appointments Appointment Date:05/25/2024 10:30:00 AM Scheduled Provider:LIZZETTE SALES DO Location:[facility] Appointment Type: Wellness Medicare Future Scheduled TestsBD Bone Density DEXA Axial Skeleton 10/01/23MRI Spine Lumbar w/ + w/o Contrast 09/22/[address] [facility] Hospital course Narrative No data available for this section [facility] Hospital Discharge instructions No data available for this section [facility] Progress note No data available for this section [facility] Instructions Instruction Description Start Date CompletedPlease follow-up wi th Primary Care Physician or Aerial Gunner Superintendent for treatment or adjustment of medication regarding [...] Personnel Name: LIZZETTE SALES DO Address: [address] [facility] [place], [place] [address] Name: Santiago Carballo PT Care Team Personnel Name: IVELISSE LISA MD Member Role: Pain Management Address: Address: [address] [place] [address] Name: Santiago Carballo PT Position: P3 Scheduling - Repair Electric Motor Assembler Advanced Member Role: Other Name: SERAFIN AHUMADA MD Member Role: Computational Mathematician Address: Address: [facility] [address] [place] [address]- Name: ROZINA JEFFERSON MD Member Role: Oncologist Address: Address: [address] [place] [address]- Name: OLU GEORGE Member Role: Dentist Name: LIZZETTE SALES DO Position: P4 Physician - Primary Care Member Role: Primary Care Physician Address: Address: [address] [place] [address]- Name: VINCENT CASTRO Member Role: Grain Oilseed Or Pasture Grower Care Team Related Persons Name: CHELSI HEARN Care Team Personnel Name: IVELISSE LISA MD Member Role: Pain Management Address: Address: [address] [place], [place] [address] Name: Santiago Carballork Joan PT Position: P3 Scheduling - Repair Electric Motor Assembler Advanced Member Role: Other Name: SERAFIN AHUMADA MD Member Role: Computational Mathematician Address: Address: [facility] [address] [place] [address]- Name: ROZINA JEFFERSON MD Member Role: Oncologist Address: Address: [address] [place] [address]- Name: OLU GEORGE Member Role: Dentist Name: NICKIE COOK MD Member Role: Electrophysiologist Address: Address: [address] [place] [address]- Name: LIZZETTE SALES DO Position: P4 Physician - Primary Care Member Role: Primary Care Physician Address: Address: [address] [place] [address]- [place] Name: VINCENT CASTRO Member Role: Grain Oilseed Or Pasture Grower Care Team Related Persons Name: CHELSI HEARN Care Team Personnel Name: IVELISSE LISA MD Member Role: Pain Management Address: Address: [address] [place] [address]- [place] Name: Santiago Carballork Joan PT Position: P3 Scheduling - Repair Electric Motor Assembler Advanced Member Role: Other Name: SERAFIN AHUMADA MD Member Role: Computational Mathematician Address: Address: [facility] [address] [place] [address]- [place] Name: ROZINA JEFFERSON MD Member Role: Oncologist Address: Address: [address] [place] [address]- Name: OLU GEORGE Member Role: Dentist Name: NICKIE COOK MD Member Role: Electrophysiologist Address: Address: [address] [place] [address]- [place] Name: LIZZETTE SALES DO Position: P4 Physician - Primary Care Member Role: Primary Care Physician Address: Address: [address] [place] [address]- [place] Name: VINCENT CASTRO Member Role: Grain Oilseed Or Pasture Grower Name: CHANTAL ZAPIEN MD Position: [facility] Physician Member Role: Attending Physician Address: Address: [address] [place] [address]- Care Team Related Persons Name: CHELSI HEARN Care Team Personnel Name: IVELISSE LISA MD Member Role: Pain Management Address: Address: [place] [address]- Name: Santiago Carballo PT Position: P3 Scheduling - Repair Electric Motor Assembler Advanced Member Role: Other Name: SERAFIN AHUMADA MD Member Role: Computational Mathematician Address: Address: [facility] [address] [place] [address]- [place] Name: ROZINA JEFFERSON MD Member Role: Oncologist Address: Address: [address] [place] [address]- [place] Name: OLU GEORGE Member Role: Dentist Name: NICKIE COOK MD Member Role: Electrophysiologist Address: Address: [address] [place] [address]- [place] Name: LIZZETTE SALES DO Position: P4 Physician - Primary Care Member Role: Primary Care Physician Address: Address: [address] [place] [address]- [place] Name: VINCENT CASTRO Member Role: Grain Oilseed Or Pasture Grower Care Team Related Persons Name: CHELSI HEARN Care Team Personnel Name: IVELISSE LISA MD Member Role: Pain Management Address: Address: [address] [place] [address]- [place] Name: [place], Knit Goods Washer Joan PT Position: P3 Scheduling - Repair Electric Motor Assembler Advanced Member Role: Other Name: SERAFIN AHUMADA MD Member Role: Computational Mathematician Address: Address: [facility] [address] [place] [address]- Name: ROZINA JEFFERSON MD Member Role: Oncologist Address: Address: [address] [place] [address]- Name: OLU GEORGE Member Role: Dentist Name: NICKIE COOK MD Member Role: Electrophysiologist Address: Address: [address] [place] [address]- [place] Name: LIZZETTE SALES DO Position: P4 Physician - Primary Care Member Role: Primary Care Physician Address: Address: [address] [place] [address] Name: VINCENT CASTRO Member Role: Grain Oilseed Or Pasture Grower Care Team Related Persons Name: CHELSI HEARN Care Team Personnel Name: IVELISSE LISA MD Member Role: Pain Management Address: Address: [address] [place] [address]- Name: Santiago Carballo Clerk Joan PT Position: P3 Scheduling - Repair Electric Motor Assembler Advanced Member Role: Other Name: SERAFIN AHUMADA MD Member Role: Computational Mathematician Address: Address: [facility] [address] [place] [id number]- Name: ROZINA JEFFERSON MD Member Role: Oncologist Address: Address: [address] [place] [address]- Name: OLU GEORGE Member Role: Dentist Name: NICKIE COOK MD Member Role: Electrophysiologist Address: Address: [address] [place] [address]- Name: LIZZETTE SALES DO Position: P4 Physician - Primary Care Member Role: Primary Care Physician Address: Address: [address] [place] [address]- Name: VINCENT CASTRO Member Role: Grain Oilseed Or Pasture Grower Care Team Related Persons Name: CHELSI HEARN Care Team Personnel Name: IVELISSE LISA MD Member Role: Pain Management Address: Address: [address] [place] [address]- Name: [place], Knit Goods Washer Joan PT Position: P3 Scheduling - Repair Electric Motor Assembler Advanced Member Role: Other Name: SERAFIN AHUMADA MD Member Role: Computational Mathematician Address: Address: [facility] [address] [place] [address]- Name: ROZINA JEFFERSON MD Member Role: Oncologist Address: Address: [address] [place] [address]- Name: OLU GEORGE Member Role: Dentist Name: NICKIE COOK MD Member Role: Electrophysiologist Address: Address: [address] [place] [address]- [place] Name: LIZZETTE SALES DO Position: P4 Physician - Primary Care Member Role: Primary Care Physician Address: Address: [address] [place] [address] Name: VINCENT CASTRO Member Role: Grain Oilseed Or Pasture Grower Care Team Related Persons Name: CHELSI HEARN Care Team Personnel Name: IVELISSE LISA MD Member Role: Pain Management Address: Address: [place] [address]- Name: Santiago Carballorpatrick Laua PT Position: P3 Scheduling - Repair Electric Motor Assembler Advanced Member Role: Other Name: SERAFIN AHUMADA MD Member Role: Computational Mathematician Address: Address: [facility] [address] [place] [address]- Name: ROZINA JEFFERSON MD Member Role: Oncologist Address: Address: [address] [place] [address]- Name: OLU EGORGE Member Role: Dentist Name: NICKIE COOK MD Member Role: Electrophysiologist Address: Address: [address] [place] [address]- Name: LIZZETTE SALES DO Position: P4 Physician - Primary Care Member Role: Primary Care Physician Address: Address: [address] [place] [address]- Name: VINCENT CASTRO Member Role: Grain Oilseed Or Pasture Grower Care Team Related Persons Name: CHELSI HEARN Care Team Personnel Name: IVELISSE LISA MD Member Role: Pain Management Address: Address: [address] [place] [address]- Name: Santiago Carballo Clerk Joan PT Position: P3 Scheduling - Repair Electric Motor Assembler Advanced Member Role: Other Name: SERAFIN AHUMADA MD Member Role: Computational Mathematician Address: Address: [facility] [address] [place] [address]- Name: ROZINA JEFFERSON MD Member Role: Oncologist Address: Address: [address] [place] [address]- Name: OLU GEORGE Member Role: Dentist Name: NICKIE COOK MD Member Role: Electrophysiologist Address: Address: [address] [place] [address]- [place] Name: LIZZETTE SALES DO Position: P4 Physician - Primary Care Member Role: Primary Care Physician Address: Address: [address] [place] [address] Name: VINCENT CASTRO Member Role: Grain Oilseed Or Pasture Grower Care Team Related Persons Name: CHELSI HEARN Care Team Personnel Name: IVELISSE LISA MD Member Role: Pain Management Address: Address: [place] [address]- Name: Santiago Carballo Clerk Joan PT Position: P3 Scheduling - Repair Electric Motor Assembler Advanced Member Role: Other Name: SERAFIN AHUMADA MD Member Role: Computational Mathematician Address: Address: [facility] [address] [place] [address]- Name: ROZINA JEFFERSON MD Member Role: Oncologist Address: Address: [address] [place] [address]- Name: OLU GEORGE Member Role: Dentist Name: NICKIE COOK MD Member Role: Electrophysiologist Address: Address: [address] [place] [address]- Name: LIZZETTE SLAES DO Position: P4 Physician - Primary Care Member Role: Primary Care Physician Address: Address: [address] [place] [address] Name: VINCENT CASTRO Member Role: Grain Oilseed Or Pasture Grower Care Team Related Persons Name: CHELSI HEARN Name: LIDIA CAMPOS Care Team Personnel Name: IVELISSE ILSA MD Member Role: Pain Management Address: Address: [address] [place] [id number]- Name: Santiago Carballorpatrick Franco PT Position: P3 Scheduling - Repair Electric Motor Assembler Advanced Member Role: Other Name: SERAFIN AHUMADA MD Member Role: Computational Mathematician Address: Address: [facility] [address] [place] [address]- Name: ROZINA JEFFERSON MD Member Role: Oncologist Address: Address: [address] [place] [address]- Name: OLU GEORGE Member Role: Dentist Name: NICKIE COOK MD Member Role: Electrophysiologist Address: Address: [address] [place] [address]- Name: LIZZETTE SALES DO Position: P4 Physician - Primary Care Member Role: Primary Care Physician Address: Address: [address] [place] [address] Name: VINCENT CASTRO Member Role: Grain Oilseed Or Pasture Grower Care Team Related Persons Name: CHELSI HEARN Name: LIDIA CAMPOS Care Team Personnel Name: IVELISSE LISA MD Member Role: Pain Management Address: Address: [place] [id number]- Name: Santiago Carballorpatrick Franco PT Position: P3 Scheduling - Repair Electric Motor Assembler Advanced Member Role: Other Name: SERAFIN AHUMADA MD Member Role: Computational Mathematician Address: Address: [facility] [address]- Name: ROZINA JEFFERSON MD Member Role: Oncologist Address: Address: [address] [place] [address]- Name: OLU GEORGE Member Role: Dentist Name: NICKIE COOK MD Member Role: Electrophysiologist Address: Address: [address] [place] [address]- Name: LIZZETTE SALES DO Position: P4 Physician - Primary Care Member Role: Primary Care Physician Address: Address: [address] [place] [address]- Name: VINCENT CASTRO Member Role: Grain Oilseed Or Pasture Grower Care Team Related Persons Name: CHELSI HEARN Name: BETH, LIDIA Care Team Personnel Name: IVELISSE LISA MD Member Role: Pain Management Address: Address: [address] [place] [address]- Name: Santiago Carballo PT Position: P3 Scheduling - Repair Electric Motor Assembler Advanced Member Role: Other Name: SERAFIN AHUMADA MD Member Role: Computational Mathematician Address: Address: [facility] [address] [place] [address]- Name: ROZINA JEFFERSON MD Member Role: Oncologist Address: Address: [address] [place] [id number]- Name: OLU GEORGE Member Role: Dentist Name: NICKIE COOK MD Member Role: Electrophysiologist Address: Address: [address] [place] [address]- Name: LIZZETTE SALES DO Position: P4 Physician - Primary Care Member Role: Primary Care Physician Address: Address: [address] [place] [id number] [place] [address] Name: VINCENT CASTRO Member Role: Grain Oilseed Or Pasture Grower Care Team Related Persons Name: CHELSI HEARN Name: LIDIA CAMPOS Care Team Personnel Name: IVELISSE LISA MD Member Role: Pain Management Address: Address: [address] [place] [id number]- Name: Santiago Carballo PT Position: P3 Scheduling - Repair Electric Motor Assembler Advanced Member Role: Other Name: SERAFIN AHUMADA MD Member Role: Computational Mathematician Address: Address: [facility] [address] [place] [address]- Name: ROZINA JEFFERSON MD Member Role: Oncologist Address: Address: [address] [place] [address]- Name: OLU GEORGE Member Role: Dentist Name: NICKIE COOK MD Member Role: Electrophysiologist Address: Address: [address] [place] [address]- Name: LIZZETTE SALES DO Position: P4 Physician - Primary Care Member Role: Primary Care Physician Address: Address: [address] [place] [address]- Name: VINCENT CASTRO Member Role: Grain Oilseed Or Pasture Grower Care Team Related Persons Name: CHELSI HEARN Name: LIDIA CAMPOS Care Team (unrecognized sect ion and content) Personnel Name: LIZZETTE SALES DO Address: Address: [address] [place] [address] Name: Santiago Carballo PT Care Team Personnel Name: IVELISSE LISA MD Member Role: Pain Management Address: Address: [address] [place] [address] Name: Santiago Carballorpatrick Franco PT Position: P3 Scheduling - Repair Electric Motor Assembler Advanced Member Role: Other Name: LIZZETTE SALES DO Position: P4 Physician - Primary Care Med Service: Active Provider Member Role: Primary Care Physician Address: Address: [address] [place] [address] Care Team Related Persons Name: CHELSI HEARN Care Team Personnel Name: IVELISSE LISA MD Member Role: Pain Management Address: Address: [address] [place] [address] Name: Santiago Carballorpatrick Laua PT Position: P3 Scheduling - Repair Electric Motor Assembler Advanced Member Role: Other Name: SERAFIN AHUMADA MD Member Role: Computational Mathematician Address: Address: [facility] [address] Name: OLU GEORGE Member Role: Dentist Name: LIZZETTE SALES DO Position: P4 Physician - Primary Care Member Role: Primary Care Physician Address: Address: [address] [place] [address] Name: VINCENT CASTRO Member Role: Grain Oilseed Or Pasture Grower Care Team Related Persons Name: CHELSI HEARN Care Team Personnel Name: IVELISSE LISA MD Member Role: Pain Management Address: Address: [address] [place] [address]- Name: Santiago Carballork Joan PT Position: P3 Scheduling - Repair Electric Motor Assembler Advanced Member Role: Other Name: SERAFIN AHUMADA MD Member Role: Computational Mathematician Address: Address: [facility] [address] Name: OLU GEORGE Member Role: Dentist Name: LIZZETTE SALES DO Position: P4 Physician - Primary Care Member Role: Primary Care Physician Address: Address: [address] [place] [address] Name: VINCENT CASTRO Member Role: Grain Oilseed Or Pasture Grower Care Team Related Persons Name: CHELSI HEARN Care Team Personnel Name: IVELISSE LISA MD Member Role: Pain Management Address: Address: [address] Name: Santiago Carballork Joan PT Position: P3 Scheduling - Repair Electric Motor Assembler Advanced Member Role: Other Name: SERAFIN AHUMADA MD Member Role: Computational Mathematician Address: Address: [facility] [address] Name: OLU GEORGE Member Role: Dentist Name: LIZZETTE SALES DO Position: P4 Physician - Primary Care Member Role: Primary Care Physician Address: Address: [address] [place] [address] Name: VINCENT CASTRO Member Role: Grain Oilseed Or Pasture Grower Care Team Related Persons Name: CHELSI HEARN Care Team Personnel Name: IVELISSE LISA MD Member Role: Pain Management Address: Address: [address] Name: Santiago Carballork Joan PT Position: P3 Scheduling - Repair Electric Motor Assembler Advanced Member Role: Other Name: SERAFIN AHUMADA MD Member Role: Computational Mathematician Address: Address: [facility] [address] Name: OLU GEORGE Member Role: Dentist Name: LIZZETTE SALES DO Position: P4 Physician - Primary Care Member Role: Primary Care Physician Address: Address: [address] [place] [address] Name: VINCENT CASTRO Member Role: Grain Oilseed Or Pasture Grower Care Team Related Persons Name: CHELSI HEARN Care Team Personnel Name: IVELISSE LISA MD Member Role: Pain Management Address: Address: [address] [place] [address]- Name: Santiago Carballork Joan PT Position: P3 Scheduling - Repair Electric Motor Assembler Advanced Member Role: Other Name: SERAFIN AHUMADA MD Member Role: Computational Mathematician Address: Address: [facility] [address] [place], [place] [address] Name: OLU GEORGE Member Role: Dentist Name: LIZZETTE SALES DO Position: P4 Physician - Primary Care Member Role: Primary Care Physician Address: Address: [address] [facility] [place], [place] [address] Name: VINCENT CASTRO Member Role: Grain Oilseed Or Pasture Grower Care Team Related Persons Name: CHELSI HEARN INFORMATION SOURCE (unrecogn ized section and content) DATE CREATED AUTHOR 12/22/2023 [facility] ([place]) DATE CREATED AUTHOR AUTHOR'S ORGANIZ ATION 04/01/2024 [facility] FOR RECORDS PERTAINING TO PATIENTS WHO [...] BE BASED ON THE PRIMARY CLINICAL RECORDS. [employer] provides no warranty or guarantee of the accuracy or completeness of information in this document.
[2024-04-02 00:53] VITALS: O2SAT 100
[2024-04-02 02:52] LABS: Absolute Lymphocyte Count 3.36 X10^3/uL (0.83-4.51); Absolute Neutrophil Count 3.1 X10^3/uL (2.0-7.7); Basophil# 0.04 X10^3/uL; Basophil% 0.5 % (0-1); Eosinophil# 0.01 X10^3/uL; Eosinophils% 0.1 % (0-5); Hematocrit 33.8 % (37-47); Hemoglobin 11.9 g/dL (12.0-15.0); Lymphocyte # 3.36 X10^3/ul (0.83-4.51); Mean Corp Hgb Conc 35.2 g/dL (32-36); Mean Corpuscular Hgb 29.6 pg (27.0-32.0); Mean Corpuscular Volume 84.1 fL (81-99); Mean Platelet Vol. 9.3 fl (6.2-12.0); Monocyte# 1.98 X10^3/uL; NRBC Flagged by Analyzer 0 % (0-5); Neutrophil # 3.06 X10^3/uL (2.7-7.7); Neutrophil % 35.4 % (47-70); POSITIVE DIFFERENTIAL YES; POSITIVE MORPHOLOGY YES; Platelet Count 273 K/mm3 (150-450); RBC Distribution Width CV 13.2 % (11.6-14.6); RBC Distribution Width SD 40.6 fl (35.1-43.9); Red Blood Count 4.02 M/mm3 (4.2-5.4); White Blood Count 8.6 K/mm3 (4.4-11.0)
[2024-04-02 03:02] LABS: Differential Indicated SCAN CRITERIA MET
[2024-04-02] MEDS: Dextrose 5%-Water (1000mL Bag) 1,000 ML 15 ML IV (03:27)
[2024-04-02 03:29] LABS: ALB/GLOB Ratio 1.3 RATIO (0.9-2.4); AST(SGOT) 16 U/L (15-37); Alanine Aminotransfer ALT/SGPT 29 U/L (13-56); Albumin, Serum 3.4 g/dL (3.2-5.0); Alkaline Phosphatase 60 U/L (45-117); Anion Gap 6 (5-15); BUN 14 mg/dL (7-18); BUN/Creat Ratio 23.7 RATIO (10-20); Calcium,Total 8.5 mg/dL (8.5-10.1); Chloride 92 mmol/L (98-107); Creatinine, Serum 0.59 mg/dL (0.55-1.02); EST Glomerular Filtration Rate 103 mL/min (>60); Est Glom Filt Rate - Afr Amer 124 mL/min (>60); Estimated Creatinine Clearance 40.66 ml/min; Globulin 2.6 g/dL (2.2-4.2); Glucose 99 mg/dL (74-106); Magnesium 2.3 mg/dL (1.6-2.6); Potassium 3.6 mmol/L (3.5-5.1); Sodium Level 128 mmol/L (136-145)
[2024-04-02 03:45] VITALS: BP 117/58; PULSE 77; RESP 18; TEMP 36.5; O2SAT 100
[2024-04-02] MEDS: Potassium Chloride Oral Tablet 20 MEQ 60 MEQ PO (03:47)
[2024-04-02] MEDS: Fleet Enema 133 ML RC (03:47)
[2024-04-02 03:50] LABS: Osmolality, Serum 267 mOsm/KG (280-301)
[2024-04-02 04:13] LABS: Atypical Lymphocyte 3+ %
[2024-04-02] MEDS: Levothyroxine 88 MCG Tablet PO (05:29)
[2024-04-02 06:36] LABS: Osmolality, Urine 112 mOsm/KG
--- NOTE | 2024-04-02 08:10 | PN.HOSP_ITS ---
Reason for Visit Reason for Visit: Diagnoses Chronic lymphocytic leukemia of B-cell type not having achieved remission (04/01/24) Hypothyroidism, unspecified (04/01/24) Dehydration (04/01/24) Hypo-osmolality and hyponatremia (04/01/24) Hypokalemia (04/01/24) Metabolic encephalopathy (04/01/24) Essential (primary) hypertension (04/01/24) Adverse effect of unspecified drugs, medicaments and biological substances, initial encounter (04/01/24) Subjective Subjective Feeling well. Objective Data Objective Data Vital Signs: Vital Signs Temp Pulse Resp BP Pulse Ox O2 Del Method 36.5 C L 77 18 117/58 L 100 Room Air 04/02/24 03:45 04/02/24 03:45 04/02/24 03:45 04/02/24 03:45 04/02/24 03:45 04/02/24 03:45 Oxygen Delivery Method Room Air Weight: 56.6 kg Body Mass Index (BMI) 22.8 Intake & Output: Intake and Output for Last 24 Hours 03/31/24 04/01/24 04/02/24 23:59 23:59 23:59 Intake Total 500 / 500 249.67 / 249.67 Balance 500 / 500 249.67 / 249.67 Lab / Micro Data 04/02/24 02:27 04/02/24 11:39 Labs: Laboratory Results - last 24 hr 04/01/24 20:10: WBC 11.5 H, RBC 4.10 L, Hgb 12.3, Hct 34.5 L, MCV 84.1 D, MCH 30.0, MCHC 35.7 D, RDW Std Deviation 39.8, RDW Coeff of Bell 13.0, Plt Count 284, MPV 9.6, Sodium 120 L, Potassium 3.3 L, Chloride 81 L, Carbon Dioxide 28.0, Anion Gap 11, BUN 18, Creatinine 0.87, Estim Creat Clear Calc 37.39, Est GFR (MDRD) Af Amer 80, Est GFR (MDRD) Non-Af 66, BUN/Creatinine Ratio 20.8 H, G lucose 139 H, Calcium 8.6, Total Bilirubin 0.60, AST 12 L, ALT 32, Alkaline Phosphatase 65, Troponin I High Sens 6, Total Protein 6.3 L, Albumin 3.7, Globulin 2.6, Albumin/Globulin Ratio 1.4, Lipase 56, Folate 19.30, TSH 5.320 H 04/01/24 21:44: Urine Color Straw, Urine Clarity Clear, Urine pH 6.5, Ur Specific [place] 1.005, Urine Protein Negative, Urine Glucose (UA) Normal, Urine Ketones Negative, Urine Occult Blood 10 H, Urine Nitrite Negative, Urine Bilirubin Negative, Urine Urobilinogen Normal, Ur Leukocyte Esterase Negative, Urine RBC 0 SEEN, Urine WBC 0 SEEN, Ur Squamous Epith Cells 0-5 SEEN, Urine Bacteria 0 SEEN, Urine Mucus 0 SEEN, Urine Osmolality 112 04/02/24 02:27: WBC 8.6, RBC 4.02 L, Hgb 11.9 L, Hct 33.8 L, MCV 84.1, MCH 29.6, MCHC 35.2, RDW Std Deviation 40.6, RDW Coeff of Bell 13.2, Plt Count 273, MPV 9.3, Immature Gran % (Auto) 2.000 H, Neut % (Auto) 35.4 L, Lymph % (Auto) 39.0, [place] % (Auto) 23.0 H, Eos % (Auto) 0.1, Baso % (Auto) 0.5, Absolute Neuts (auto) 3.1, Absolute Lymphs (auto) 3.36, Nucleated RBC % 0, Atypical Lymphocytes 3+, S odium 128 L, Potassium 3.6, Chloride 92 L, Carbon Dioxide 30.0, Anion Gap 6, BUN 14, Creatinine 0.59, Estim Creat Clear Calc 40.66, Est GFR (MDRD) Af Amer 124, Est GFR (MDRD) Non-Af 103, BUN/Creatinine Ratio 23.7 H, Glucose 99, Serum Osmolality 267 L, Calcium 8.5, Phosphorus 3.0, Magnesium 2.3, Total Bilirubin 0.60, AST 16, ALT 29, Alkaline Phosphatase 60, Total Protein 6.0 L, Albumin 3.4, Globulin 2.6, Albumin/Globulin Ratio 1.3, TSH 3.100 Micro: Microbiology 04/01/24 20:20 Mucosa - Nose SARS-CoV-2, Influenza & RSV (PCR) - Final Radiography Diagnostic Testing: Radiology Impression Brain CT 04/01/24 20:20 IMPRESSION: No acute findings. Microvascular ischemic changes. Mild atrophy. Electronically Signed: Esperanza Duckworth MD at 21:40 EDT Reading Location ID and State: [id number] / Tel , Service support , Abdomen/Pelvis CT 04/01/24 20:21 IMPRESSION: No acute findings in the abdomen or pelvis. Chronic compression fractures and degenerative changes of the lumbar spine. Electronically Signed: Esperanza Duckworth MD at 21:46 EDT Reading Location ID and State: [id number] / Tel , Service support , Chest X-Ray 04/01/24 20:45 IMPRESSION: No radiographic evidence of acute cardiopulmonary disease. Electronically Signed: Matt Garvin DO at 22:28 EDT , Physical Exam Const alert and no apparent distress HEENT head/scalp atraumatic and moist oral mucous membranes Resp normal respiratory effort, no retractions, no use of accessory muscles and clear to auscultation bilaterally Cardio regular rate, regular rhythm, S1 normal heart sound and S2 normal heart sound GI normal to inspection, nondistended, normoactive bowel sounds and soft to palpation Neuro Sensorium / Orientation: awake and alert Assessment & Plan Assessment/Plan (1) Acute hyponatremia: (2) Hypokalemia: (3) Metabolic encephalopathy: PLAN: Plan Hyponatremia * probably 2/2 volume depletion from N/V and poor oral intake. * Sodium improved from 120 to 128 with IVF * TSH WNL. Check cortiosl. Check SIADH work up. Hypokalemia * improved with replacement. monitor Metabolic encephalopathy * resolved 2/2 dehydration, N/V. * head CT negative. N/V: * may be d/t zanubritinib. * antiemetics. Chronic conditions: * Essential hypertension: losartan * HLP: continue * Hypothyroidism: continue levothyroxine. TSH WNL. VTE prophylaxis: LMWH. Charges/Coding Visit Charges Inpatient E&M: 65870 Subs Hosp L2
[2024-04-02 08:26] VITALS: BP 117/84; PULSE 75; RESP 16; TEMP 36.8; O2SAT 97
[2024-04-02] MEDS: Calcium Carbonate 500 MG Tablet PO ×2 (08:34→18:03)
[2024-04-02] MEDS: Docusate Sodium 100 MG Capsule PO ×2 (08:34→21:14)
[2024-04-02] MEDS: Polyethylene Glycol 3350 17 GM PACKET PO (08:35)
[2024-04-02] MEDS: Psyllium 1 PACKET PO (08:35)
[2024-04-02] MEDS: Enoxaparin 40 MG/0.4 ML Syringe SC (08:35)
[2024-04-02] MEDS: Ondansetron 4 MG/2 ML Vial IV ×2 (08:50→21:15)
[2024-04-02] MEDS: Ibuprofen 200 MG Tablet PO (08:50)
[2024-04-02] MEDS: HYDROcodone Bitartrate/Apap 5/325 Tablet PO ×2 (08:50→22:26)
[2024-04-02] MEDS: Pantoprazole Sodium 40 MG in 0.9% Normal Saline (100mL MB+) 100 ML 330 MG IV (08:51)
[2024-04-02 12:32] LABS: Anion Gap 6 (5-15); BUN 11 mg/dL (7-18); BUN/Creat Ratio 19.4 RATIO (10-20); Calcium,Total 8.3 mg/dL (8.5-10.1); Chloride 96 mmol/L (98-107); Creatinine, Serum 0.57 mg/dL (0.55-1.02); EST Glomerular Filtration Rate 108 mL/min (>60); Est Glom Filt Rate - Afr Amer 130 mL/min (>60); Estimated Creatinine Clearance 40.66 ml/min; Glucose 98 mg/dL (74-106); Potassium 4.7 mmol/L (3.5-5.1); Sodium Level 128 mmol/L (136-145)
[2024-04-02] MEDS: proMETHazine 25 MG/ML Syringe 12.5 MG IM (12:40)
[2024-04-02 15:18] VITALS: BP 110/51; PULSE 73; RESP 16; TEMP 36.5; O2SAT 98
[2024-04-02 16:54] LABS: Anion Gap 6 (5-15); BUN 11 mg/dL (7-18); BUN/Creat Ratio 18.1 RATIO (10-20); Calcium,Total 8.7 mg/dL (8.5-10.1); Chloride 96 mmol/L (98-107); Creatinine, Serum 0.61 mg/dL (0.55-1.02); EST Glomerular Filtration Rate 99 mL/min (>60); Est Glom Filt Rate - Afr Amer 120 mL/min (>60); Estimated Creatinine Clearance 40.66 ml/min; Glucose 93 mg/dL (74-106); Potassium 4.5 mmol/L (3.5-5.1); Sodium Level 131 mmol/L (136-145)
[2024-04-02] MEDS: Losartan Potassium 50 MG Tablet PO (21:14)
[2024-04-02] MEDS: MELATONIN 3 MG TABLET 6 MG PO (21:15)
[2024-04-02 21:18] VITALS: BP 117/64; PULSE 77; RESP 18; TEMP 36.8; O2SAT 98
[2024-04-02] MEDS: Ensure Clear 120 ML Liquid PO (21:22)
[2024-04-03 03:30] VITALS: BP 113/60; PULSE 70; RESP 18; TEMP 36.3; O2SAT 100
[2024-04-03] MEDS: Ondansetron 4 MG/2 ML Vial IV (05:46)
[2024-04-03] MEDS: Levothyroxine 88 MCG Tablet PO (05:53)
[2024-04-03 06:00] VITALS: BMI 33.5
[2024-04-03] MEDS: HYDROcodone Bitartrate/Apap 5/325 Tablet PO (06:29)
[2024-04-03 07:04] LABS: Anion Gap 4 (5-15); BUN 15 mg/dL (7-18); BUN/Creat Ratio 23.1 RATIO (10-20); Calcium,Total 8.4 mg/dL (8.5-10.1); Chloride 99 mmol/L (98-107); Creatinine, Serum 0.65 mg/dL (0.55-1.02); EST Glomerular Filtration Rate 92 mL/min (>60); Est Glom Filt Rate - Afr Amer 112 mL/min (>60); Estimated Creatinine Clearance 51.25 ml/min; Glucose 97 mg/dL (74-106); Magnesium 2.2 mg/dL (1.6-2.6); Phosphorus 3.5 mg/dL (2.5-4.9); Potassium 4.6 mmol/L (3.5-5.1); Sodium Level 130 mmol/L (136-145)
[2024-04-03 07:42] VITALS: O2SAT 98
[2024-04-03 08:52] VITALS: BP 112/41; PULSE 71; RESP 16; TEMP 36.9; O2SAT 99
[2024-04-03] MEDS: Calcium Carbonate 500 MG Tablet PO (08:59)
[2024-04-03] MEDS: Enoxaparin 40 MG/0.4 ML Syringe SC (08:59)
[2024-04-03] MEDS: Psyllium 1 PACKET PO (08:59)
[2024-04-03] MEDS: Docusate Sodium 100 MG Capsule PO (08:59)
[2024-04-03] MEDS: Polyethylene Glycol 3350 17 GM PACKET PO (08:59)
[2024-04-03 09:00] LABS: Vitamin B12 1589 pg/mL (211-911)
[2024-04-03] MEDS: Cyanocobalamin 500 MCG Tablet 1000 MCG PO (09:00)
[2024-04-03] MEDS: Ibuprofen 200 MG Tablet PO (09:08)
[2024-04-03] MEDS: Ensure Clear 120 ML Liquid PO (09:08)
[2024-04-03] MEDS: Pantoprazole Sodium 40 MG in 0.9% Normal Saline (100mL MB+) 100 ML 330 MG IV (09:08)
--- NOTE | 2024-04-03 11:31 | DCINST_ITS ---
Discharge Instructions Diet Discharge Diet: No restrictions Activity Discharge Activity: Return to Normal Activity Weight Bearing Status: Full weight bearing Follow Up Care Test Results: Test results from this visit will be discussed in further detail at your follow- up appointment, if applicable. Discharge Plan Admission Admit Date/Time: 04/01/24 23:30 Primary Reason for Your Visit: nausea, vomiting, hyponatremia Attending Provider: Victoriano Cannon Primary Care Provider: Lisette Apple Consulting Providers: Carlos Enrique Nguyễn; Markel Mitchell Instructions Additional Instructions / Restrictions: you may increase the Lactulose to 30 grams twice a day if necessary for constipation Discharge Orders/Prescriptions Prescriptions: New lactulose 20 gram/30 mL solution 20 g PO BID Qty: 1500 1RF Rx Instructions: 20 grams once or twice daily for constipation ondansetron HCl 4 mg tablet 4 mg PO Q6H PRN (Reason: nausea and vomiting) Qty: 30 0RF Continued ascorbic acid (vitamin C) 100 mg tablet 100 mg PO DAILY calcium carbonate 600 mg calcium (1,500 mg) tablet 600 mg PO BID cholecalciferol (vitamin D3) 10 mcg (400 unit) capsule 10 mcg PO DAILY lutein 20 mg capsule 20 mg PO DAILY Rx Instructions: give with meal/snack magnesium carbonate 1 cap PO DAILY levothyroxine 88 mcg capsule 88 mcg PO DAILY losartan 50 mg tablet 50 mg PO QHS mecobalamin (vitamin B12) 1,000 mcg lozenge 1,000 mcg PO Q OTHER DAY Rx Instructions: allow to dissolve in mouth OR may chew lightly before swallowing (DME) Disability Placard See Rx Instructions .Route .MEDSUPPLY Qty: 1 0RF Rx Instructions: As directed (DME) disability placard See Rx Instructions .Route .MEDSUPPLY Qty: 1 0RF Rx Instructions: . Brukinsa 80 mg capsule 320 mg PO BID hydrocodone-acetaminophen 5-325 mg tablet 1 tab PO Q6H PRN PRN (Reason: Pain) 3 Days Qty: 10 0RF Discontinued Metamucil 3.4 gram/5.4 gram powder 1 tbsp PO DAILY Rx Instructions: mix into at least 8 oz of water or juice before administering polyethylene glycol 3350 [Miralax] 17 gram/dose powder 4 g PO DAILY docusate sodium [Colace] 100 mg capsule 100 mg PO BID Referrals / Follow Up: Lisette Apple, [Primary Care Provider] - See Referral Note (at next scheduled visit) Disposition Disposition (needs filled in before D/C Order can be placed): Home, Self Care
--- NOTE | 2024-04-03 11:40 | DS.PCM_ITS ---
Providers Date of Admission: 04/01/24 Date of Discharge: 04/03/24 Primary Care Physician: Dr. Lisette Apple DO Reason For Visit: ACUTE HYPONATREMIA, HYPOKALEMIA, DEHYDRATION Diagnosis Discharge Diagnosis (1) Acute hyponatremia: Status: Acute Code(s): E87.1 - Hypo-osmolality and hyponatremia (2) Hypokalemia: Status: Acute Code(s): E87.6 - Hypokalemia (3) Metabolic encephalopathy: Status: Acute Code(s): G93.41 - Metabolic encephalopathy Plan 1. Hyponatremia-secondary to nausea and vomiting #2 hypokalemia-secondary to nausea and vomiting #3 metabolic encephalopathy secondary to dehydration from nausea and vomiting #4 essential hypertension #5 hypothyroidism #6 hyperlipidemia #7 chronic lymphocytic leukemia Medications at Discharge Home Medications ascorbic acid (vitamin C) 100 mg tablet 100 mg PO DAILY 08/14/22 calcium carbonate 600 mg PO BID 08/14/22 cholecalciferol (vitamin D3) 10 mcg (400 unit) capsule 10 mcg PO DAILY 08/14/22 lutein 20 mg capsule 20 mg PO DAILY 08/14/22 magnesium carbonate 1 cap PO DAILY 08/18/22 mecobalamin (vitamin B12) 1,000 mcg lozenges 1,000 mcg PO Q OTHER DAY 03/01/23 levothyroxine 88 mcg capsule 88 mcg PO DAILY 06/01/23 Disability Placard #1 ea 09/07/23 zanubrutinib 80 mg capsule (Brukinsa) 320 mg PO BID 10/18/23 disability placard #1 ea 01/03/24 losartan 50 mg tablet 50 mg PO QHS 01/03/24 hydrocodone-acetaminophen 5-325mg 5mg-325mg 1 tab PO Q6H PRN PRN Pain 3 days #10 TABLETS 03/27/24 lactulose 20 gram/30 mL oral solution 20 g (30 mL) PO BID #1,500 mL 04/03/24 ondansetron HCl 4 mg tablet 4 mg PO Q6H PRN nausea and vomiting #30 tabs 04/03/24 Hospital Course Operations None Procedures None Summary of Care Provided Minutes Spent on Discharge: 31 Hospital Course: This 84-year-old white female was seen in the emergency room at [facility] with complaints of nausea and vomitin, patient also admitted to intermittent confusion and feeling lightheaded. Patient attempted to increase her fluid intake at home but was not able to do so because of nausea and vomiting. Labs performed in the emergency room were abnormal for sodium of 120, patient's potassium was low at 3.3, and there was an elevated BUN to creatinine ratio. Patient was admitted to PCU for hyponatremia, hypokalemia, dehydration, and metabolic encephalopathy, she was given IV fluids and her labs were monitored. Patient is nausea and vomiting resolved, her potassium normalized, and the patient's sodium cruz to 130. Patient was given lactulose for constipation. On 04/03/2024, patient was seen and examined: On examination she appeared in good health and spirits, she does not appear to be in any distress. Vital signs as documented. Skin warm and dry and without overt rashes. Neck without JVD, thyroid appears normal, trachea is midline, neck is supple. Lungs clear, normal air movement was noted. Heart exam notable for regular rhythm, normal sounds and absence of murmurs, rubs or gallops. Abdomen unremarkable and without evidence of organomegaly, masses, or abdominal aortic enlargement, bowel sounds are present in all 4 quadrants, no abdominal tenderness was noted. Extremities nonedematous, no cyanosis was noted, no clubbing was noted. Neuro: Cranial nerves II through XII are grossly intact, no focal motor deficits were noted, sensation to light touch and pinprick is intact, motor exam 5/5 throughout. Psych: Patient is alert and oriented x3, she does not appear anxious or depressed, she does not appear agitated. Patient was felt to be stable for discharge home on 04/03/2024. Weight / BMI Weight Weight: 82.7 kg Body Mass Index (BMI) 33.5 ABG / Lab / Microbiology Data 04/02/24 02:27 04/03/24 05:15 Laboratory: Laboratory Results - last 24 hr 04/02/24 02:27: Vitamin B12 1589 H, Cortisol 14.80 04/02/24 11:39: Sodium 128 L, Potassium 4.7, Chloride 96 L, Carbon Dioxide 26.0, Anion Gap 6, BUN 11, Creatinine 0.57, Estim Creat Clear Calc 40.66, Est GFR (MDRD) Af Amer 130, Est GFR (MDRD) Non-Af 108, BUN/Creatinine Ratio 19.4, Glucose 98, Calcium 8.3 L 04/02/24 16:03: Sodium 131 L, Potassium 4.5, Chloride 96 L, Carbon Dioxide 29.0, Anion Gap 6, BUN 11, Creatinine 0.61, Estim Creat Clear Calc 40.66, Est GFR (MDRD) Af Amer 120, Est GFR (MDRD) Non-Af 99, BUN/Creatinine Ratio 18.1, Glucose 93, Calcium 8.7 04/03/24 05:15: Sodium 130 L, Potassium 4.6, Chloride 99, Carbon Dioxide 27.0, A nion Gap 4 L, BUN 15, Creatinine 0.65, Estim Creat Clear Calc 51.25, Est GFR (MDRD) Af Amer 112, Est GFR (MDRD) Non-Af 92, BUN/Creatinine Ratio 23.1 H, Glucose 97, Calcium 8.4 L, Phosphorus 3.5, Magnesium 2.2 Microbiology: Microbiology 04/01/24 20:20 Mucosa - Nose SARS-CoV-2, Influenza & RSV (PCR) - Final D/C Instructions Discharge Diet: No restrictions Weight Bearing Status: Full weight bearing Meaningful Use Info Meaningful Use Meaningful Use Diagnoses (Choose all that apply): None applicable Ischemic Stroke Statin Dosing Therapy Reference: STATIN DOSE THERAPY REFERENCE: * Patients > 75 years receive moderate or high dose statin therapy. * Patients 75 years or YOUNGER should receive HIGH intensity statin dose unless contraindicated. You will be required to document reason for non-treatment if statin daily dose does not meet guidelines. HIGH DOSE STATIN THERAPY DAILY Atorvastatin > than or = to 40 mg Rosuvastatin > than or = to 20 mg Amlodipine + Atorvastatin > than or = to 2.5/40 mg Ezetimibe + Simvastatin 10/80 mg Simvastatin 80mg Discharge Plan Admission Admit Date/Time: 04/01/24 23:30 Primary Reason for Your Visit: nausea, vomiting, hyponatremia Attending Provider: Victoriano Cannon Primary Care Provider: Lisette Apple Consulting Providers: Carlos Enrique Nguyễn; Markel Mitchell Instructions Additional Instructions / Restrictions: you may increase the Lactulose to 30 grams twice a day if necessary for constipation Discharge Orders/Prescriptions Prescriptions: New lactulose 20 gram/30 mL solution 20 g PO BID Qty: 1500 1RF Rx Instructions: 20 grams once or twice daily for constipation ondansetron HCl 4 mg tablet 4 mg PO Q6H PRN (Reason: nausea and vomiting) Qty: 30 0RF Continued ascorbic acid (vitamin C) 100 mg tablet 100 mg PO DAILY calcium carbonate 600 mg calcium (1,500 mg) tablet 600 mg PO BID cholecalciferol (vitamin D3) 10 mcg (400 unit) capsule 10 mcg PO DAILY lutein 20 mg capsule 20 mg PO DAILY Rx Instructions: give with meal/snack magnesium carbonate 1 cap PO DAILY levothyroxine 88 mcg capsule 88 mcg PO DAILY losartan 50 mg tablet 50 mg PO QHS mecobalamin (vitamin B12) 1,000 mcg lozenge 1,000 mcg PO Q OTHER DAY Rx Instructions: allow to dissolve in mouth OR may chew lightly before swallowing (DME) Disability Placard See Rx Instructions .Route .MEDSUPPLY Qty: 1 0RF Rx Instructions: As directed (DME) disability placard See Rx Instructions .Route .MEDSUPPLY Qty: 1 0RF Rx Instructions: . Brukinsa 80 mg capsule 320 mg PO BID hydrocodone-acetaminophen 5-325 mg tablet 1 tab PO Q6H PRN PRN (Reason: Pain) 3 Days Qty: 10 0RF Discontinued Metamucil 3.4 gram/5.4 gram powder 1 tbsp PO DAILY Rx Instructions: mix into at least 8 oz of water or juice before administering polyethylene glycol 3350 [Miralax] 17 gram/dose powder 4 g PO DAILY docusate sodium [Colace] 100 mg capsule 100 mg PO BID Referrals / Follow Up: Lisette Apple DO [Primary Care Provider] - See Referral Note (at next scheduled visit) Disposition Disposition (needs filled in before D/C Order can be placed): Home, Self Care Charges/Coding Visit Charges Inpatient E&M: 92364 Disch Hosp >30min
[2024-04-03] MEDS: Lactulose 20 GM/30 ML UDC 30 GM PO (12:14)
--- NOTE | 2024-04-03 12:38 | CASEMGMT ---
HARINDER PETIT Assessment Face to Face with patient for initial transition planning/care coordination assessment. HARINDER PETIT introduced self and role at [facility], pt voices understanding. Pt is A&Ox4 and is resting comfortably in bed and is calm. Care providers, pharmacy, and demographics verified. PCP: Lisette Apple Specialists: Lissette (Onc) Preferred Pharmacy: [facility] Insurance: [facility] [facility] Prescription Benefit: Yes LNOK: Rachel Jenkins (JENNIFER), Annette Redding (Jennifer) Living Arrangements: Pt lives alone in a single story home with a basement with handrails and one step to enter the home ADLs/IADLs: Ind at baseline Transportation: Self, daughters DME: [facility]. Raised toilet seat. Shower chair. BP Monitor HHC/SNF: Denies history. Pt states that she has been to [facility] in the past fo OP Tx Pt?s goal: Return to PLOF Plan: Home with HHC. See PT evaluation. Pt educated about home bound status and pt is agreeable and believes that HH would be beneficial. Pt states that she is planning to go to her daughters home for 1-2 days after DC. Pt states that her daughter took off work for this. Pt states that she would like to have the HH start later in the week, when she is back to her home. Pt declines wanting to review a list of local in-network HHC agencies and states that she would like to go through [facility]. TC to [facility] and referral made to [facility] for SN, PT, and OT. Awaiting return response. NIRALI PIZANO CM updated. Dennise Estes RN, CM
[2024-04-03 14:00] VITALS: BP 98/53; PULSE 73; RESP 16; TEMP 36.8; O2SAT 99
--- NOTE | 2024-04-03 14:03 | CASEMGMT ---
Patient was accepted by [facility] with start of care date for Wednesday. Discharge plan updated.
== END 2024-04-03 14:24 | disposition home health service (06) | DRG 640 ==
LOC: ED 22:34 → PCU 04-02 00:38
PROVIDERS: Admitting Provider Internal Medicine; Emergency Provider Emergency Medicine; PCP Family Medicine; Visit Provider Internal Medicine
DX: E86.0 Dehydration (principal); G93.41 Metabolic encephalopathy; C91.10 Chronic lymphocytic leukemia of B-cell type not having achieved remission; E03.9 Hypothyroidism, unspecified; E87.1 Hypo-osmolality and hyponatremia; K59.03 Drug induced constipation; I10 Essential (primary) hypertension; F32.A Depression, unspecified; E78.00 Pure hypercholesterolemia, unspecified; E87.6 Hypokalemia; R11.2 Nausea with vomiting, unspecified; G89.29 Other chronic pain; M81.0 Age-related osteoporosis without current pathological fracture; T50.995A Adverse effect of other drugs, medicaments and biological substances, initial encounter; Z79.890 Hormone replacement therapy; Z79.891 Long term (current) use of opiate analgesic; Z90.710 Acquired absence of both cervix and uterus
CPT/HCPCS: 36415; 70450; 71045; 74176; 80048; 80053; 81001; 82533; 82607; 82746; 83690; 83735; 83930; 83935; 84100; 84443; 84484; 85025; 85027; 87631; 93005; 97162; 97165; 97802; 99285; J7040; A4216; J2405

== ENCOUNTER 2024-06-12 07:58 | Day surgery (SDC) | payer MEDICARE, SELFPAY ==
[2024-06-12] VITALS (7 sets, daily range): BP systolic 124–134; BP diastolic 61–63; PULSE 65–76; RESP 15–18; TEMP 36.4–36.6; O2SAT 97–100; BMI 23.3
--- NOTE | 2024-06-12 08:33 | PCM.PRE.AN2 ---
ASA Classification* ASA Classification ASA Classification: 2 Assessment & Plan Anesthesia* Anesthesia Assessment Anesthesia Assessment: Discussed sedation and/or anesthesia options, risks, benefits, and alternatives with patient/parents/legal guardian/POA. Questions invited. The patient/parents/legal guardian/POA seems to understand and agrees to proceed with anesthesia plan. Reviewed the physical assessment, medical history, allergy history and patient home medications list prior to surgery/procedure/anesthetic and documented any changes. Performed airway and anesthesia risk assessments. Anesthesia Type Anesthesia Type: MAC Anesthesia Focused Assessment* Airway Assessment Mouth opens: >3 cm Mallampati Score: II Focused Labs Anesthesia Preop lab: CBC WBC 8.5 K/mm3 (4.4-11.0) 05/29/24 12:50 RBC 3.79 M/mm3 (4.2-5.4) L 05/29/24 12:50 Hgb 11.1 g/dL (12.0-15.0) L 05/29/24 12:50 Hct 34.4 % (37-47) L 05/29/24 12:50 Plt Count 291 K/mm3 (150-450) 05/29/24 12:50 CHEMISTRY Potassium 3.6 mmol/L (3.5-5.1) 05/29/24 12:50 Sodium 134 mmol/L (136-145) L 05/29/24 12:50 Magnesium 2.2 mg/dL (1.6-2.6) 04/03/24 05:15 Phosphorus 3.5 mg/dL (2.5-4.9) 04/03/24 05:15 BUN 8 mg/dL (7-18) 05/29/24 12:50 Creatinine 0.52 mg/dL (0.55-1.02) L 05/29/24 12:50 Glucose 99 mg/dL (74-106) 05/29/24 12:50 TSH 3.100 uIU/mL (0.358-3.740) 04/02/24 02:27 COAG Pre-Assessment Diagnosis/Proposed Procedure Planned Operative Procedure(s): cervical facet block right Anesthesia History 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 When Was Last Pacemaker Check QUESTION #4 FULL TEXT: You/Your Family Experience fever (hyperthermia) with Anesthesia Last Oral Intake Last Oral intake: Last Oral Intake NPO since Meds taken in AM with sips of water? Meds patient instructed to take am of surgery PONV PONV - fur blowing machine attendant: PONV - fur blowing machine attendant Female HX of Motion Sickness HX of N/V After Surgery Non-Smoker Duration of Surgery greater than 60 minutes Number of Risk Factors PONV Score Height & Weight Height & Weight: Anesthesia: Height & Weight Height 5 ft 2 in 05/29/24 13:21 Respiratory Assessment Respiratory Assessment - fur blowing machine attendant: Respiratory Tract Infection Hx - fur blowing machine attendant Hx Respiratory Tract Infection No 03/22/24 11:26 STOP Sleep Apnea STOP Sleep Apnea - fur blowing machine attendant: STOP Sleep Apnea - fur blowing machine attendant Hx Hypertension Yes: CONTROLLED WITH MED 04/02/24 09:42 Hx Sleep Apnea No 04/01/24 23:54 CPAP BIPAP Do you snore loudly (louder than talking or can be heard Do you often feel tired/ fatigued/ sleepy during daytime? Has anyone observed you stop breathing during sleep? STOP Results QUESTION #5 FULL TEXT : Do you snore loudly (louder than talking or can be heard through closed doors)? Tobacco Use History Tobacco Use History - fur blowing machine attendant: Tobacco Use History - fur blowing machine attendant Tobacco Use Smoking Status Never smoker 04/01/24 23:54 Hx Tobacco Use No 04/01/24 23:54 Years Smoking Packs Smoked per Day Smoking Cessation Date was within the last 15 years Hx Smoking Cessation Date Hx Smoking Cessation Counseling Hematologic Medial History Hematologic Hx - fur blowing machine attendant: Hematologic Medical Hx - surgical services asst Hx of Blood Transfusion Hx of Transfusion in last 3 Months Date of Last Transfusion (if within last 3 months) Ever experience any problems with transfusion(s)? Specify any problems Hx of Preganancy in last 3 Months Nurse Filling Out Transfusion & Questions: Date: Time: Patient unable to answer at this time (ie. confused, unrespo /Reproduction History /Reproductive History - fur blowing machine attendant: /Reproductive Hx- fur blowing machine attendant Hx Now Gestational Age (in weeks): EDC: Hx Hx Para Hx Section SAB No 03/22/24 11:26 [facility] Medical History Metabolic encephalopathy Adverse drug reaction Dehydration Hypokalemia Acute hyponatremia Retroperitoneal lymphadenopathy Abdominal pain Depression Back pain Constipation Wears hearing aid Wears glasses Cancer Thyroid disease Walker as ambulation aid High cholesterol Non-smoker Leg cramps History of echocardiogram History of stress test Cardiology follow-up encounter Cholinesterase deficiency Encounter for education Anemia CLL (chronic lymphocytic leukemia) Hypothyroidism Vertigo Varicose veins of legs Supraclavicular mass Supraclavicular lymphadenopathy Skin lesion of face Skin lesion of neck Stress incontinence Psoriasis Osteoporosis Mitral valve prolapse Low back pain with right-sided sciatica Hyperlipidemia High blood pressure Hematuria Home Medications ?Medication ?Instructions ?Recorded ?Last Taken ?Type ascorbic acid (vitamin C) 100 mg 100 mg PO DAILY 08/14/22 10/20/23 History tablet calcium carbonate 600 mg PO BID 08/14/22 10/20/23 History cholecalciferol (vitamin D3) 10 10 mcg PO DAILY 08/14/22 10/20/23 History mcg (400 unit) capsule lutein 20 mg capsule 20 mg PO DAILY 08/14/22 10/20/23 History magnesium carbonate 1 cap PO DAILY 08/18/22 10/20/23 History mecobalamin (vitamin B12) 1,000 1,000 mcg PO Q OTHER DAY 03/01/23 10/20/23 History mcg lozenges levothyroxine 88 mcg capsule 88 mcg PO DAILY 06/01/23 10/20/23 History Disability Placard #1 ea 09/07/23 Unknown Rx disability placard #1 ea 01/03/24 Unknown Rx losartan 50 mg tablet 50 mg PO QHS 01/03/24 Unknown History lactulose 20 gram/30 mL oral 20 g (30 mL) PO BID #1,500 mL 04/03/24 Unknown Rx solution zanubrutinib 80 mg capsule 160 mg (2 x 80 mg) PO BID 30 days 04/06/24 Unknown Rx #120 caps gabapentin 100 mg capsule 100 mg PO QDAY 04/28/24 Unknown History Allergy/AdvReac Type Severity Reaction Status Date / Time No Known Allergies Allergy Verified 05/29/24 13:26 Family History Brother CAD (coronary artery disease) Cancer Hyperlipemia Mother Cancer Leukemia Sister Cancer Sarcoma Surgical History Hx of kyphoplasty S/P abdominal hysterectomy H/O umbilical hernia repair History of tonsillectomy S/P appendectomy Social History household members: none housing: house Smoking Status: Never smoker alcohol intake: never substance use type: does not use Review of Systems (Anesthesia) ROS Narrative System reviewed and no additional complaints, except as documented.
--- NOTE | 2024-06-12 09:56 | RAD_ITS ---
PROCEDURE: Cervical facet block, right-sided C3-C6 DATE OF EXAMINATION: 06/12/2024 INDICATION: Female, 84 years old. Neck pain and headache PHYSICIAN: Brien Ocampo MD FLUOROSCOPY TIME (if supplied): (7) seconds, 4 images RADIATION DOSAGE (If Supplied By Facility): CTDIvol = ( 0.83 ) mGy, DLP = ( ) mGycm CONSENT: The risks, benefits and alternatives to the procedure were explained to the patient, and the patient agreed to the procedure and signed the consent. 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 PROCEDURE/TECHNIQUE: (All elements of maximal sterile barrier technique followed, including US elements as applicable) The risks, benefits, and alternatives to the procedure were explained to patient, and the patient agreed to the procedure and signed a consent form for the procedure. A timeout was performed to confirm the patient''s identity, the type of procedure, to be performed and the site of entry. Fluoroscopy provided for right-sided facet block between C3 and C6. No complications RAD/Cerv Spine 4 or 5 Views IMPRESSION: No complications noted during right-sided C3-C6 facet block Electronically Signed: Nicko Rider MD at 13:08 EST ,
[2024-06-12] MEDS: Bupivacaine 0.25% 30 ML Vial (10:01)
[2024-06-12] MEDS: MethylPREDNISolone Acetate 80 MG/ML Vial (10:02)
--- NOTE | 2024-06-12 10:06 | OP.PCM_ITS ---
Operative Report (Standard) Operative Information Date of Procedure: 06/12/24 Pre-Operative Diagnosis: 1 Post-Operative Diagnosis: 1 Surgery/Procedure Performed: 1 strip machine tender: No Type of Anesthesia: MAC and Topical Anesth RN Documented Start/Stop Times: Operation Date: 06/12/24 09:40 Case Time Into Pre-Op 06/12/24 08:28 Out of Pre-Op 06/12/24 09:49 Anesthesia Start 06/12/24 09:55 Into Room 06/12/24 09:55 Procedure Start 06/12/24 10:00 Procedure End 06/12/24 10:02 Anesthesia End 06/12/24 10:04 Into Recovery 06/12/24 10:04 Out of Room 06/12/24 10:04 Procedure Start Time: 10:06 Procedure Stop Time: 10:06 Select all DRAINS/GRAFTS/IMPLANTS that apply: None Estimated Blood Loss: 1 Specimen collected: No Description of surgery: PREOPERATIVE DIAGNOSIS: Cervical spondylosis, cervical degenerative disc disease, cervical facet arthropathy POSTOPERATIVE DIAGNOSIS:Cervical spondylosis, cervical degenerative disc disease, cervical facet arthropathy PROCEDURE PERFORMED: Right sided cervical facet steroid injection at C3, C4, C5, and C6. ANESTHESIA: MAC. BLOOD LOSS: Minimal. COMPLICATIONS: None. DESCRIPTION OF PROCEDURE: History and physical of today was reviewed. Risks and benefits of the procedure were explained. The patient understood and agreed to proceed. Informed consent was obtained. IV inserted per routine protocol. The patient was taken to the operating room and placed in the prone position with a pillow positioned underneath the chest. The neck area was prepped and draped in a sterile fashion using iodine x3. Under fluoroscopy guidance on an AP view, the C3 through C6 vertebral bodies were visualized at approximately 10- degree angle, starting on the right C3, ending on the right C6, passing through the C4 and C5. Using a 25-gauge 3-1/2-inch spinal needle, the needle was advanced via the skin. The tip of the needle was maneuvered and directed towards the epiphyseal junction of each corresponding vertebra. Once the tip of the needle was at the vicinity of the medial branch, the needle was pulled approximately 2 mm off the bone. After negative aspiration of blood or CSF and confirmation on AP, oblique as well as lateral view, a total of 4 mL of preservative-free 0.25% Marcaine with 80 mg of Depo-Medrol was injected in divided doses between those four levels. The needles were then removed intact. The patient experienced no sign or symptoms of intrathecal or intravascular injection. The patient experienced no paresthesia. The procedure was completed without any apparent difficulty or any complications. The patient appeared to tolerate it well. ASSESSMENT AND PLAN: This is an 84-year-old female with cervical spondylosis, cervicogenic disc disease, cervical facet arthropathy status post right-sided cervical facet steroid injection at C3-C6, patient will continue her current medications, patient will follow-up in approximately 1 to 2 weeks for reevaluation. Surgical Findings: 1 Complications Complications: No Admit VTE Documentation VTE Present on Admission: No VTE Mechan Device Prophylaxis: None VTE Pharm Prophylaxis ordered?: No
--- NOTE | 2024-06-12 10:25 | PCM.POST.ANE ---
Anesthesia: Postop Eval I Current Vital Signs Temperature: 97.8 F Pulse Rate: 66 Blood Pressure: 133/63 Respiratory Rate: 15 Pulse Ox: 97 Oxygen Delivery Method: Room Air Assessment Airway patent: Yes Spontaneous unlabored respirations: Yes Mental status: Awake and Calm nausea: No Vomiting: No Anesthesia Complication: No Fluid Hydration Crystalloid volume administer (ml): 30 Total IV fluid infused: 30 Progress Note Anesthesia document: Postop Eval 1 completed: Yes
--- NOTE | 2024-06-12 10:44 | POSTOPAN2_ITS ---
Anesthesia Postop Eval I Sum Postop Eval Completion status Anesthesia document: Postop Eval 1 completed: Yes Anesthesia Postop Eval I Summary Anesthesia Postop Eval I Summary: Anesthesia Postop Eval I: Assessment Summary Airway patent Yes 06/12/24 10:27 [employer]AC[employer]URE AND [employer]ER[employer] [email or web address] Spontaneous unlabored Yes 06/12/24 10:27 [employer] [email or web address] respirations Mental status Awake,Calm 06/12/24 10:27 [employer] [email or web address] nausea No 06/12/24 10:27 [employer] [email or web address] Vomiting No 06/12/24 10:27 [employer] FISH[employer] [email or web address] Anesthesia Postop Eval I: Fluid Summary Crystalloid volume administer 30 06/12/24 10:27 [employer] [email or web address] (ml) Colloids volume administered ( ml) Blood Product volume administered (ml) Total IV fluid infused 30 06/12/24 10:27 A[employer]AC[employer] FISHER[employer] [email or web address] Anesthesia Postop Eval I: Summary Notes Anesthesia Complication No 06/12/24 10:27 [employer] AND FISHER[employer] [email or web address] Anesthesia Complication Comment: Post-operative progress note Anesthesia: Postop Eval II Evaluation Mental status: Awake Pain Level: 0 nausea: No Vomiting: No
--- NOTE | 2024-06-12 10:44 | PCM.POSTANE2 ---
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 Spontaneous unlabored Yes 06/12/24 10:27 [email or web address] respirations Mental status Awake,Calm 06/12/24 10:27 [email or web address] nausea No 06/12/24 10:27 [email or web address] Vomiting No 06/12/24 10:27 [email or web address] Anesthesia Postop Eval I: Fluid Summary Crystalloid volume administer 30 06/12/24 10:27 [email or web address] (ml) Colloids volume administered ( ml) Blood Product volume administered (ml) Total IV fluid infused 30 06/12/24 10:27 [email or web address] Anesthesia Postop Eval I: Summary Notes Anesthesia Complication No 06/12/24 10:27 [email or web address] Anesthesia Complication Comment: Post-operative progress note Anesthesia: Postop Eval II Evaluation Mental status: Awake Pain Level: 0 nausea: No Vomiting: No
== END 2024-06-12 10:46 | disposition home or self-care (01) ==
LOC: SDC 07:59 → AC 08:00
PROVIDERS: PCP Family Medicine; Referring Provider Anesthesiology Pain Medicine; Visit Provider Anesthesiology Pain Medicine
PROC: 3E0U3BZ Introduction of Anesthetic Agent into Joints, Percutaneous Approach (ICD-10-PCS; CPT 64490; principal; 2024-06-12 09:35)
DX: M47.812 Spondylosis without myelopathy or radiculopathy, cervical region (principal); M50.30 Other cervical disc degeneration, unspecified cervical region; I10 Essential (primary) hypertension; E78.00 Pure hypercholesterolemia, unspecified; E03.9 Hypothyroidism, unspecified; Z79.890 Hormone replacement therapy; Z79.899 Other long term (current) drug therapy
CPT/HCPCS: 64492; 64491; 64490; 72050; A4216

== ENCOUNTER 2024-08-11 08:44 | Emergency (ER) | payer MEDICARE, SELFPAY ==
[2024-08-11 08:45] VITALS: BP 185/89; PULSE 87; RESP 16; TEMP 36.6; O2SAT 98; BMI 22.6
--- NOTE | 2024-08-11 09:55 | CT_ITS ---
PROCEDURE: ABDOMEN/PELVIS W IV CONT ONLY REASON FOR EXAM: Abd pain TECHNIQUE: CT abdomen and pelvis was performed with IV contrast. Multiplanar reformats were generated. IV CONTRAST: 96 mL Isovue-300 COMPARISON: 04/01/2024 FINDINGS: Lung bases: Mild atelectasis/scarring. Cardiomegaly. Mitral annular calcification. Coronary atherosclerosis and/or stents. Liver: Unremarkable. Spleen: Tiny hypodensity superiorly too small to characterize, probably present on 08/26/2022 suggesting a benign etiology. Gallbladder: Unremarkable. Pancreas: Unremarkable. Adrenals: Unremarkable. Kidneys: Tiny hypodensity at the left upper pole too small to characterize, likely cyst, similar. Difficult to trace the course of the ureters. No hydronephrosis or definite ureteral calculus. Grossly similar presumed pelvic phleboliths in the absence of hydronephrosis/hydroureter. Bowel: Unremarkable. Appendix reportedly surgically absent. Lymph nodes: Unremarkable. Vasculature: Atherosclerosis.. Peritoneum: Unremarkable. Bladder: Underdistended and suboptimally evaluated, grossly unremarkable. Reproductive Organs: Hysterectomy. Body Wall: Unremarkable. Bones: Demineralization. Multilevel spondylosis. Similar multilevel compression deformities and changes of kyphoplasty/vertebroplasty at L2-L3 thoracic and upper lumbar dextroscoliosis and lower lumbar levoscoliosis. CT/Abdomen/Pelvis W IV Cont ONLY IMPRESSION: 1. No acute findings. 2. Additional description as above. Reading Location: [facility]
[2024-08-11 10:02] LABS: Bacteria 0 SEEN /hpf (None Seen); Mucous, Urine 0 SEEN /hpf (<or=2+); Squamous Epithelial Cells - UA 0 SEEN /hpf (5-10)
[2024-08-11 10:05] LABS: Absolute Lymphocyte Count 2.53 X10^3/uL (0.83-4.51); Basophil# 0.05 X10^3/uL; Basophil% 0.8 % (0-1); Eosinophil# 0.08 X10^3/uL; Eosinophils% 1.3 % (0-5); Hematocrit 41.9 % (37-47); Hemoglobin 13.8 g/dL (12.0-15.0); Lymphocyte # 2.53 X10^3/ul (0.83-4.51); Lymphocyte % 40.4 % (19-41); Mean Corp Hgb Conc 32.9 g/dL (32-36); Mean Corpuscular Hgb 28.9 pg (27.0-32.0); Mean Corpuscular Volume 87.8 fL (81-99); Mean Platelet Vol. 10.6 fl (6.2-12.0); Monocyte# 0.61 X10^3/uL; Monocyte% 9.7 % (0-10); NRBC Flagged by Analyzer 0 % (0-5); Neutrophil # 2.95 X10^3/uL (2.7-7.7); Platelet Count 291 K/mm3 (150-450); RBC Distribution Width CV 13.5 % (11.6-14.6); RBC Distribution Width SD 43.7 fl (35.1-43.9); Red Blood Count 4.77 M/mm3 (4.2-5.4); White Blood Count 6.3 K/mm3 (4.4-11.0)
[2024-08-11 10:13] LABS: Color, Urine Yellow (Yellow); Glucose, Dipstick Normal (Normal); Ketone-Dipstick Negative (Negative); Leukocyte Esterase-Dipstick Negative /ul (Negative); Nitrite-Dipstick Negative (Negative); Occult Blood-Urine 25 /ul (Negative); Protein-Dipstick 15 mg/dl (Negative); Urine Bilirubin Dipstick Negative (Negative); Urine Clarity Clear (Clear); Urine Urobilinogen Normal (Normal)
--- NOTE | 2024-08-11 10:13 | EX.ED.DYSGE1 ---
HPI History of Present Illness Chief Complaint: Nausea/Vomiting Informant: patient Narrative Narrative: Patient is an 84-year-old female with history of CLL, hyponatremia, constipation (on MiraLAX, lactulose and stool softener at baseline), hypertension, hyperlipidemia and hypothyroidism presenting for nausea and upset stomach. Patient states for the past year and a half since she has been on her zanubrutinib for her CLL (follows with Dr. Castro) she has had issues with bloating and constipation. She states that for the past week she has been having diarrhea. She describes as a mixture of soft stools and watery stools. This morning went a time for her to eat breakfast her stomach was upset and she felt she could not eat. She states that the nausea is feeling better now. She not take anything for it. She notes that she is having 1-2 bowel movements a day but often feels that she needs to have more bowel movements. She denies any black or blood in her stool. Denies any fever or urinary symptoms. Has a history of hysterectomy and appendectomy. Came in for further evaluation given the nausea and upset stomach this morning. Denies any chest pain or shortness of breath. [facility] Medical History Metabolic encephalopathy Adverse drug reaction Dehydration Hypokalemia Acute hyponatremia Retroperitoneal lymphadenopathy Abdominal pain Depression Back pain Constipation Wears hearing aid Wears glasses Cancer Thyroid disease Walker as ambulation aid High cholesterol Non-smoker Leg cramps History of echocardiogram History of stress test Cardiology follow-up encounter Cholinesterase deficiency Encounter for education Anemia CLL (chronic lymphocytic leukemia) Hypothyroidism Vertigo Varicose veins of legs Supraclavicular mass Supraclavicular lymphadenopathy Skin lesion of face Skin lesion of neck Stress incontinence Psoriasis Osteoporosis Mitral valve prolapse Low back pain with right-sided sciatica Hyperlipidemia High blood pressure Hematuria Home Medications ?Medication ?Instructions ?Recorded ?Last Taken ?Type ascorbic acid (vitamin C) 100 mg 100 mg PO DAILY 08/14/22 10/20/23 History tablet calcium carbonate 600 mg PO BID 08/14/22 10/20/23 History cholecalciferol (vitamin D3) 10 10 mcg PO DAILY 08/14/22 10/20/23 History mcg (400 unit) capsule lutein 20 mg capsule 20 mg PO DAILY 08/14/22 10/20/23 History magnesium carbonate 1 cap PO DAILY 08/18/22 10/20/23 History mecobalamin (vitamin B12) 1,000 1,000 mcg PO Q OTHER DAY 03/01/23 10/20/23 History mcg lozenges levothyroxine 88 mcg capsule 88 mcg PO DAILY 06/01/23 10/20/23 History Disability Placard #1 ea 09/07/23 Unknown Rx disability placard #1 ea 01/03/24 Unknown Rx losartan 50 mg tablet 50 mg PO QHS 01/03/24 06/11/24 History lactulose 20 gram/30 mL oral 20 g (30 mL) PO BID #1,500 mL 04/03/24 Unknown Rx solution zanubrutinib 80 mg capsule 160 mg (2 x 80 mg) PO BID 30 days 04/06/24 06/05/24 Rx #120 caps gabapentin 100 mg capsule 100 mg PO QDAY 04/28/24 Unknown History ondansetron 4 mg disintegrating 4 mg PO Q8H PRN PRN Nausea #10 tabs 08/11/24 Unknown Rx tablet Allergy/AdvReac Type Severity Reaction Status Date / Time No Known Allergies Allergy Verified 08/11/24 08:48 Family History Brother CAD (coronary artery disease) Cancer Hyperlipemia Mother Cancer Leukemia Sister Cancer Sarcoma Surgical History Hx of kyphoplasty S/P abdominal hysterectomy H/O umbilical hernia repair History of tonsillectomy S/P appendectomy Social History household members: none housing: house Smoking Status: Never smoker alcohol intake: never substance use type: does not use ROS ROS ED Constitutional Constitutional ED: Denies chills or fever(s) Cardiovascular Cardiovascular: Denies chest pain Respiratory/Chest Respiratory/Chest: Denies cough or dyspnea Gastrointestinal Gastrointestinal: Reports abdominal pain, diarrhea and nausea; Denies melena or vomiting Genitourinary Genitourinary ED: Denies dysuria or hematuria Musculoskeletal Musculoskeletal: Reports other Details: Reports some chronic low back pain?no acute change today ; Denies arthralgias or myalgias Integumentary Denies rash Neurologic Neurologic: Reports weakness; Denies headache(s) Hematologic/Lymphatic Hematologic/Lymphatic: Denies easy bleeding or easy bruising EXAM Physical Exam Const Vital Signs: 08/11/24 08:45 08/11/24 10:45 08/11/24 12:00 Temperature 97.8 F Temperature Source Temporal Pulse Rate 87 82 82 Respiratory Rate 16 18 16 Blood Pressure 185/89 H 180/74 H Blood Pressure Mean 121 109 Pulse Ox 98 96 96 Oxygen Delivery Method Room Air Positive well nourished and well developed General Appearance ED: well developed and NAD HEENT Reports moist mucous membranes Eyes PERRL Neck supple and no JVD Chest Wall inspection of chest normal and palpation of chest normal Resp normal respiratory effort and clear to auscultation bilaterally Cardio regular rate, regular rhythm and no murmurs GI normal to inspection, nondistended, normoactive bowel sounds and non-tender Auscultation: hypoactive bowel sounds Palpation: soft; Negative for tender or guarding Back/Spine no CVA tenderness Extremity normal to inspection General Extremety ED: Negative for edema General Extremity: Negative for edema Neuro oriented x3 Sensorium / Orientation: alert Motor Exam: Negative for general weakness Psych mental status grossly normal Mood & Affect: anxious Skin no rashes or lesions noted and no wounds MDM MDM MDM Narrative Medical decision making narrative: Patient evaluated for episode of upset stomach and nausea this morning. She reports urine I have history of constipation and bowel issues. Patient is well-appearing upon initial evaluation. Vital signs significant for hypertension, will continue to monitor to see if this requires intervention. Differential includes referred ACS (lower suspicion but will obtain screening EKG), gastritis, pancreatitis, cholecystitis, choledocholithiasis, bowel obstruction, ileus, constipation and UTI. Workup largely normal. She has normal CBC, CMP, lipase and urinalysis. EKG shows normal sinus rhythm. Patient remains asymptomatic in the emergency room he was given p.o. challenge if she tolerates. CT of the abdomen pelvis does not show any acute process. Question if patient's diarrhea could be related to too much lactulose in addition to her MiraLAX and stool softener. She does have stool in her CT but no comment on increased stool burden or ileus. Patient will decrease her lactulose slightly to see if this helps with her diarrhea and pain. Will be given a prescription for Zofran. Discussed that she should not stop all of her bowel regimen as likely that will rebound and cause worsening constipation again. She is given referral outpatient per GI. Given return precautions. She is comfortable this plan of care. Discharged home in stable condition. Lab Data Attestation: I reviewed the patient's lab results. Labs: Laboratory Results - last 24 hr 08/11/24 08/11/24 09:11 09:58 WBC 6.3 RBC 4.77 Hgb 13.8 Hct 41.9 MCV 87.8 MCH 28.9 MCHC 32.9 RDW Std Deviation 43.7 RDW Coeff of Bell 13.5 Plt Count 291 MPV 10.6 Immature Gran % (Auto) 0.800 Neut % (Auto) 47.0 Lymph % (Auto) 40.4 [place] % (Auto) 9.7 Eos % (Auto) 1.3 Baso % (Auto) 0.8 Absolute Neuts (auto) 3.0 Absolute Lymphs (auto) 2.53 Nucleated RBC % 0 Sodium 136 Potassium 3.8 Chloride 98 Carbon Dioxide 25.2 Anion Gap 13 BUN 11 Creatinine 0.63 L Estim Creat Clear Calc 38.80 L Est GFR (MDRD) Non-Af 87 BUN/Creatinine Ratio 16.8 Glucose 110 H Calcium 9.7 Total Bilirubin 0.44 AST 25 ALT 19 Alkaline Phosphatase 69 Total Protein 7.0 Albumin 4.4 Globulin 2.5 Albumin/Globulin Ratio 1.8 Lipase 23 Urine Color Yellow Urine Clarity Clear Urine pH 7.0 Ur Specific [place] 1.010 Urine Protein 15 H Urine Glucose (UA) Normal Urine Ketones Negative Urine Occult Blood 25 H Urine Nitrite Negative Urine Bilirubin Negative Urine Urobilinogen Normal Ur Leukocyte Esterase Negative Urine RBC 0-5 SEEN Urine WBC 0-5 SEEN Ur Squamous Epith Cells 0 SEEN Ur Transition Epith Cell 0-5 SEEN Urine Bacteria 0 SEEN Urine Mucus 0 SEEN Radiography Diagnostic Testing: Clinical Impression(s) from Imaging Studies Abdomen/Pelvis CT 08/11/24 09:55 IMPRESSION: 1. No acute findings. 2. Additional description as above. Reading Location: [facility] Rhythm Strip Rhythm Strip: Sinus Rhythm Rate: 67 Ectopy: PVC(s) EKG Initial EKG: Attestation: I personally reviewed and interpreted this EKG as follows: Interpretation: Sinus Rhythm Comments: Normal sinus rhythm at a rate of 67 bpm with PVC present Normal axis Normal intervals Normal ST segments Discharge Plan Triage Chief Complaint: Nausea/Vomiting ED Provider: Flower Arndt Dx/Rx/DC Orders Clinical Impression: Nausea, Abdominal pain of unknown cause Instructions: ED Abdominal Pain Unkn Cause Fem Prescriptions: New ondansetron 4 mg tablet,disintegrating 4 mg PO Q8H PRN PRN (Reason: Nausea) Qty: 10 0RF No Action ascorbic acid (vitamin C) 100 mg tablet 100 mg PO DAILY calcium carbonate 600 mg calcium (1,500 mg) tablet 600 mg PO BID cholecalciferol (vitamin D3) 10 mcg (400 unit) capsule 10 mcg PO DAILY lutein 20 mg capsule 20 mg PO DAILY Rx Instructions: give with meal/snack magnesium carbonate 1 cap PO DAILY levothyroxine 88 mcg capsule 88 mcg PO DAILY losartan 50 mg tablet 50 mg PO QHS mecobalamin (vitamin B12) 1,000 mcg lozenge 1,000 mcg PO Q OTHER DAY Rx Instructions: allow to dissolve in mouth OR may chew lightly before swallowing (DME) Disability Placard See Rx Instructions .Route .MEDSUPPLY Qty: 1 0RF Rx Instructions: As directed (DME) disability placard See Rx Instructions .Route .MEDSUPPLY Qty: 1 0RF Rx Instructions: . gabapentin 100 mg capsule 100 mg PO QDAY lactulose 20 gram/30 mL solution 20 g PO BID Qty: 1500 1RF Rx Instructions: 20 grams once or twice daily for constipation zanubrutinib 80 mg capsule 160 mg PO BID 30 Days Qty: 120 6RF Primary Care Provider: Lisette Apple Referrals: Lisette Apple DO [Primary Care Provider] - Friend,DO Kurt [Med Staff - Active Staff] - Activity Restrictions/Additional Instructions: The exact cause of your nausea and upset stomach today is not clear however your workup was largely normal. No signs of acute pathology on your lab work or imaging today. You been prescribed Zofran. Given that you are now having watery stool/diarrhea I do recommend cutting back slightly on your lactulose (if you are taking it twice a day go to once a day and if you are taking it once a day go to every other day). Only decrease one of your stool regiment at a time so you do not elicit rebound constipation. Please follow-up with the GI specialist as we discussed. Eat a bland diet for the next few days until you are feeling better. Return if you have worsening symptoms or further concerns Print Language: Bulgarian Disposition Disposition: Home, Self Care
[2024-08-11 10:33] LABS: ALB/GLOB Ratio 1.8 RATIO (0.9-2.4); AST(SGOT) 25 U/L (<=31); Alanine Aminotransfer ALT/SGPT 19 U/L (<=34); Albumin, Serum 4.4 g/dL (3.4-4.8); Alkaline Phosphatase 69 U/L (35-104); Anion Gap 13 (5-15); BUN 11 mg/dL (4-19); BUN/Creat Ratio 16.8 RATIO (10-20); Calcium,Total 9.7 mg/dL (7.6-11.0); Carbon Dioxide 25.2 mmol/L (21.0-32.0); Chloride 98 mmol/L (98-108); Creatinine, Serum 0.63 mg/dL (0.70-1.20); EST Glomerular Filtration Rate 87 (>60); Globulin 2.5 g/dL (2.2-4.2); Glucose 110 mg/dL (70-99); Lipase 23 U/L (13-75); Potassium 3.8 mmol/L (3.3-5.1); Sodium Level 136 mmol/L (133-145); Total Bilirubin 0.44 mg/dL (0.00-1.30)
[2024-08-11 10:45] VITALS: BP 180/74; PULSE 82; RESP 18; O2SAT 96
[2024-08-11 10:46] LABS: Red Blood Cells-Urine 0-5 SEEN /hpf (0-5); Transitional Epithelial - Ur 0-5 SEEN /hpf (0-5); White Blood Cells 0-5 SEEN /hpf (0-5)
[2024-08-11 12:00] VITALS: PULSE 82; RESP 16; O2SAT 96
--- NOTE | 2024-08-11 12:11 | CM.ED ---
Social work Reason for referral: validate advance directives Referral source: case find This SW identified patient's need to have advance directives validated. SW entered patient's room, introducing self and role at [facility]. Patient's daughter, Annette, at bedside. Patient stated having documents completed and believing patient's daughter, Rachel Jenkins, is listed as primary HCPOA with patient's daughter, Annette Redding, listed as secondary HCPOA. Patient's daughter received business card to email documents in to put on file. Emi Carmona, INTERLOCKING TOWER OPERATOR, NURSING ASSOCIATE
== END 2024-08-11 12:58 | disposition home or self-care (01) ==
PROVIDERS: Emergency Provider Emergency Medicine; PCP Family Medicine; Visit Provider Emergency Medicine
DX: R11.2 Nausea with vomiting, unspecified (principal); C91.10 Chronic lymphocytic leukemia of B-cell type not having achieved remission; R10.9 Unspecified abdominal pain; R19.7 Diarrhea, unspecified; R14.0 Abdominal distension (gaseous); E78.00 Pure hypercholesterolemia, unspecified; K30 Functional dyspepsia; I10 Essential (primary) hypertension; E03.9 Hypothyroidism, unspecified; Z79.890 Hormone replacement therapy; Z79.899 Other long term (current) drug therapy
CPT/HCPCS: 74177; 80053; 81001; 83690; 85025; 93005; 99283; Q9967; A4216

== ENCOUNTER 2024-09-11 08:21 | Day surgery (SDC) | payer MEDICARE, SELFPAY ==
[2024-09-11] VITALS (8 sets, daily range): BP systolic 110–170; BP diastolic 53–78; PULSE 64–69; RESP 14–20; TEMP 36.3–36.8; O2SAT 98–100; BMI 22.4
--- NOTE | 2024-09-11 08:44 | PCM.PRE.AN2 ---
ASA Classification* ASA Classification ASA Classification: 2 Assessment & Plan Anesthesia* Anesthesia Assessment Anesthesia Assessment: Discussed sedation and/or anesthesia options, risks, benefits, and alternatives with patient/parents/legal guardian/POA. Questions invited. The patient/parents/legal guardian/POA seems to understand and agrees to proceed with anesthesia plan. Reviewed the physical assessment, medical history, allergy history and patient home medications list prior to surgery/procedure/anesthetic and documented any changes. Performed airway and anesthesia risk assessments. Anesthesia Type Anesthesia Type: MAC Anesthesia Focused Assessment* Airway Assessment Mouth opens: >3 cm Mallampati Score: II Focused Labs Anesthesia Preop lab: CBC WBC 5.7 K/mm3 (4.4-11.0) 09/04/24 13:24 09/04/24 RBC 4.24 M/mm3 (4.2-5.4) 09/04/24 13:24 09/04/24 Hgb 12.5 g/dL (12.0-15.0) 09/04/24 13:24 09/04/24 Hct 37.1 % (37-47) 09/04/24 13:24 09/04/24 Plt Count 287 K/mm3 (150-450) 09/04/24 13:24 09/04/24 CHEMISTRY Potassium 4.2 mmol/L (3.3-5.1) 09/04/24 13:24 09/04/24 Sodium 131 mmol/L (133-145) L 09/04/24 13:24 09/04/24 Magnesium 2.2 mg/dL (1.6-2.6) 04/03/24 05:15 04/03/24 Phosphorus 3.5 mg/dL (2.5-4.9) 04/03/24 05:15 04/03/24 BUN 8 mg/dL (4-19) 09/04/24 13:24 09/04/24 Creatinine 0.51 mg/dL (0.70-1.20) L 09/04/24 13:24 09/04/24 Glucose 125 mg/dL (70-99) H 09/04/24 13:24 09/04/24 TSH 3.100 uIU/mL (0.358-3.740) 04/02/24 02:27 04/02/24 COAG Pre-Assessment Diagnosis/Proposed Procedure Planned Operative Procedure(s): Caudal SHAY Anesthesia History 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 When Was Last Pacemaker Check QUESTION #4 FULL TEXT: You/Your Family Experience fever (hyperthermia) with Anesthesia Last Oral Intake Last Oral intake: Last Oral Intake NPO since Meds taken in AM with sips of water? 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 Female HX of Motion Sickness HX of N/V After Surgery Non-Smoker Duration of Surgery greater than 60 minutes Number of Risk Factors PONV Score Height & Weight Height & Weight: Anesthesia: Height & Weight Height 5 ft 1 in 09/04/24 14:16 Respiratory Assessment Respiratory Assessment - professor of visual arts: Respiratory Tract Infection Hx - professor of visual arts Hx Respiratory Tract Infection No 03/22/24 11:26 STOP Sleep Apnea STOP Sleep Apnea - professor of visual arts: STOP Sleep Apnea - professor of visual arts Hx Hypertension Yes: CONTROLLED WITH MED 04/02/24 09:42 Hx Sleep Apnea No 06/12/24 10:20 CPAP BIPAP Do you snore loudly (louder than talking or can be heard Do you often feel tired/ fatigued/ sleepy during daytime? Has anyone observed you stop breathing during sleep? STOP Results QUESTION #5 FULL TEXT : Do you snore loudly (louder than talking or can be heard through closed doors)? 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 Specify any problems Hx of Preganancy in last 3 Months Nurse Filling Out Transfusion & Questions: Date: Time: Patient unable to answer at this time (ie. 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: /Reproductive Hx- professor of visual arts Hx Now Gestational Age (in weeks): EDC: Hx Hx Para Hx Section SAB No 03/22/24 11:26 [facility] Medical History Metabolic encephalopathy Adverse drug reaction Dehydration Hypokalemia Acute hyponatremia Retroperitoneal lymphadenopathy Abdominal pain Depression Back pain Constipation Wears hearing aid Wears glasses Cancer Thyroid disease Walker as ambulation aid High cholesterol Non-smoker Leg cramps History of echocardiogram History of stress test Cardiology follow-up encounter Cholinesterase deficiency Encounter for education Anemia CLL (chronic lymphocytic leukemia) Hypothyroidism Vertigo Varicose veins of legs Supraclavicular mass Supraclavicular lymphadenopathy Skin lesion of face Skin lesion of neck Stress incontinence Psoriasis Osteoporosis Mitral valve prolapse Low back pain with right-sided sciatica Hyperlipidemia High blood pressure Hematuria Home Medications ?Medication ?Instructions ?Recorded ?Last Taken ?Type ascorbic acid (vitamin C) 100 mg 100 mg PO DAILY 08/14/22 10/20/23 History tablet calcium carbonate 600 mg PO BID 08/14/22 10/20/23 History cholecalciferol (vitamin D3) 10 10 mcg PO DAILY 08/14/22 10/20/23 History mcg (400 unit) capsule lutein 20 mg capsule 20 mg PO DAILY 08/14/22 10/20/23 History magnesium carbonate 1 cap PO DAILY 08/18/22 10/20/23 History mecobalamin (vitamin B12) 1,000 1,000 mcg PO Q OTHER DAY 03/01/23 10/20/23 History mcg lozenges levothyroxine 88 mcg capsule 88 mcg PO DAILY 06/01/23 10/20/23 History Disability Placard #1 ea 09/07/23 Unknown Rx disability placard #1 ea 01/03/24 Unknown Rx losartan 50 mg tablet 50 mg PO QHS 07/29/24 01/05/25 History gabapentin 100 mg capsule 100 mg PO QDAY 04/28/24 Unknown History ondansetron 4 mg disintegrating 4 mg PO Q8H PRN PRN Nausea #10 tabs 08/11/24 Unknown Rx tablet linaclotide 145 mcg capsule 145 mcg PO QAM #30 caps 08/15/24 Unknown Rx (Linzess) Allergy/AdvReac Type Severity Reaction Status Date / Time No Known Allergies Allergy Verified 09/04/24 14:13 Family History Brother CAD (coronary artery disease) Cancer Hyperlipemia Mother Cancer Leukemia Sister Cancer Sarcoma Surgical History Hx of kyphoplasty S/P abdominal hysterectomy H/O umbilical hernia repair History of tonsillectomy S/P appendectomy Social History household members: none housing: house Smoking Status: Never smoker alcohol intake: never substance use type: does not use Review of Systems (Anesthesia) ROS Narrative System reviewed and no additional complaints, except as documented.
--- NOTE | 2024-09-11 09:34 | RAD_ITS ---
PROCEDURE: FLUOR GUIDANCE FOR SPINE INJ 09/11/2024 REASON FOR EXAM: BLOCK,CAUDAL TECHNIQUE: 2 fluoroscopic images were submitted. Fluoroscopy time was 7.7 seconds. Peak skin radiation dose was 2.1 mGy. COMPARISON: None FINDINGS: See impression RAD/Fluor Guidance for Spine Inj IMPRESSION: Fluoroscopic guidance provided during sacral injection. See operative report for further details. Reading Location: [facility]
[2024-09-11] MEDS: 0.9% Normal Saline (Pres. free 10 ML Vial (09:41)
[2024-09-11] MEDS: Lidocaine 1% (5 ml sdv) 5 ML Vial (09:41)
[2024-09-11] MEDS: MethylPREDNISolone Acetate 80 MG/ML Vial (09:41)
[2024-09-11] MEDS: Bupivacaine 0.25% 30 ML Vial (09:41)
--- NOTE | 2024-09-11 09:46 | PCM.POST.ANE ---
Anesthesia: Postop Eval I Current Vital Signs Temperature: 97.3 F Pulse Rate: 69 Blood Pressure: 110/78 Respiratory Rate: 20 Pulse Ox: 100 Assessment Airway patent: Yes Spontaneous unlabored respirations: Yes nausea: No Vomiting: No Anesthesia Complication: No Fluid Hydration Crystalloid volume administer (ml): 10 Total IV fluid infused: 10 Progress Note Anesthesia document: Postop Eval 1 completed: Yes
--- NOTE | 2024-09-11 09:49 | PCM.OPRPT ---
Operative Report (Standard) Operative Information Date of Procedure: 09/11/24 Pre-Operative Diagnosis: Lumbosacral radiculopathy, lumbosacral spinal stenosis, lumbosacral degenerative disc disease Post-Operative Diagnosis: Lumbosacral radiculopathy, lumbosacral spinal stenosis, lumbosacral degenerative disc disease Surgery/Procedure Performed: Diagnostic/therapeutic caudal epidural steroid injection under fluoroscopic guidance poultry packer: No Type of Anesthesia: Local MAC RN Documented Start/Stop Times: Operation Date: 09/11/24 10:00 Case Time Into Pre-Op 09/11/24 08:31 Out of Pre-Op 09/11/24 09:30 Anesthesia Start 09/11/24 09:33 Into Room 09/11/24 09:33 Procedure Start 09/11/24 09:41 Procedure End 09/11/24 09:43 Anesthesia End 09/11/24 09:46 Out of Room 09/11/24 09:46 Procedure Start Time: 09:50 Procedure Stop Time: 09:50 Select all DRAINS/GRAFTS/IMPLANTS that apply: None Estimated Blood Loss: 0 Specimen collected: No Description of surgery: ANESTHESIA: MAC. BLOOD LOSS: Minimal. COMPLICATIONS: None. DESCRIPTION OF PROCEDURE: History and physical of today was reviewed. Risks and benefits of the procedure were explained. The patient understood and agreed to proceed. Informed consent was obtained. IV inserted per routine protocol. The patient was taken to the operating room and placed in the prone position with a pillow positioned underneath the abdomen. The lower back and tailbone area was prepped and draped in a sterile fashion using iodine x3. Under fluoroscopy guidance on a lateral view, the caudal space was identified. The skin and subcutaneous tissue was anesthetized with approximately 3 mL of 1% lidocaine using a 25-gauge regular needle. Under direct visualization with fluoroscopy, using a 22-gauge 3-1/2-inch spinal needle, the needle was advanced via the skin through the sacral hiatus. The tip of the needle was passed through the sacrococcygeal ligament and advanced to approximately S4 area. After negative aspiration of blood or CSF, a total of 3 mL of contrast was injected to confirm correct placement of the needle as well as cephalad spread. The spread was followed to approximately L5 area. After confirmation on AP as well as lateral view and repeated negative aspiration, a total of 15 mL of preservative-free 0.125% Marcaine with 80 mg of Depo-Medrol was injected easily. The needle was then removed intact. The patient experienced no sign or symptoms of intrathecal or intravascular injection. The patient experienced no paresthesia. The procedure was completed without any apparent difficulty or any complications. The patient appeared to tolerate it well. ASSESSMENT AND PLAN: This is an-84 year-old female with lumbosacral radiculopathy, lumbosacral degenerative disc disease, lumbosacral spinal stenosis status post diagnostic/therapeutic caudal epidural steroid injection under fluoroscopic guidance, patient will continue her current medications, patient will follow-up in approximately 2 weeks for reevaluation. Surgical Findings: 1 Complications Complications: No Admit VTE Documentation VTE Present on Admission: No
--- NOTE | 2024-09-11 10:12 | POSTOPAN2_ITS ---
Anesthesia Postop Eval I Sum Postop Eval Completion status Anesthesia document: Postop Eval 1 completed: Yes Anesthesia Postop Eval I Summary Anesthesia Postop Eval I Summary: Anesthesia Postop Eval I: Assessment Summary Airway patent Yes 09/11/24 09:46 PASTE UP ARTIST.CSIR Spontaneous unlabored Yes 09/11/24 09:46 PASTE UP ARTIST.CSIR respirations Mental status nausea No 09/11/24 09:46 PASTE UP ARTIST.CSIR Vomiting No 09/11/24 09:46 PASTE UP ARTIST.CSIR Anesthesia Postop Eval I: Fluid Summary Crystalloid volume administer 10 09/11/24 09:46 PASTE UP ARTIST.CSIR (ml) Colloids volume administered ( ml) Blood Product volume administered (ml) Total IV fluid infused 10 09/11/24 09:46 PASTE UP ARTIST.CSIR Anesthesia Postop Eval I: Summary Notes Anesthesia Complication No 09/11/24 09:46 PASTE UP ARTIST.CSIR Anesthesia Complication Comment: Post-operative progress note Anesthesia: Postop Eval II Evaluation Mental status: Awake Pain Level: 2 nausea: No Vomiting: No
--- NOTE | 2024-09-11 10:12 | PCM.POSTANE2 ---
Anesthesia Postop Eval I Sum Postop Eval Completion status Anesthesia document: Postop Eval 1 completed: Yes Anesthesia Postop Eval I Summary Anesthesia Postop Eval I Summary: Anesthesia Postop Eval I: Assessment Summary Airway patent Yes 09/11/24 09:46 PLAYGROUND WORKER.CSIR Spontaneous unlabored Yes 09/11/24 09:46 PLAYGROUND WORKER.CSIR respirations Mental status nausea No 09/11/24 09:46 PLAYGROUND WORKER.CSIR Vomiting No 09/11/24 09:46 PLAYGROUND WORKER.CSIR Anesthesia Postop Eval I: Fluid Summary Crystalloid volume administer 10 09/11/24 09:46 PLAYGROUND WORKER.CSIR (ml) Colloids volume administered ( ml) Blood Product volume administered (ml) Total IV fluid infused 10 09/11/24 09:46 PLAYGROUND WORKER.CSIR Anesthesia Postop Eval I: Summary Notes Anesthesia Complication No 09/11/24 09:46 PLAYGROUND WORKER.CSIR Anesthesia Complication Comment: Post-operative progress note Anesthesia: Postop Eval II Evaluation Mental status: Awake Pain Level: 2 nausea: No Vomiting: No
== END 2024-09-11 10:31 | disposition home or self-care (01) ==
LOC: SDC 08:23 → AC 08:32
PROVIDERS: PCP Family Medicine; Referring Provider Anesthesiology Pain Medicine; Visit Provider Anesthesiology Pain Medicine
PROC: 3E0S3BZ Introduction of Anesthetic Agent into Epidural Space, Percutaneous Approach (ICD-10-PCS; CPT 62282; principal; 2024-09-11 09:55)
DX: M51.17 Intervertebral disc disorders with radiculopathy, lumbosacral region (principal); M48.07 Spinal stenosis, lumbosacral region; I10 Essential (primary) hypertension; E78.5 Hyperlipidemia, unspecified; E03.9 Hypothyroidism, unspecified; Z79.899 Other long term (current) drug therapy
CPT/HCPCS: 62323; 64483; 77003; A4216; J2405

== ENCOUNTER → 2024-09-18 | Outpatient (CLI) | payer MEDICARE, SELFPAY ==
--- NOTE | 2024-09-18 10:00 | RAD_ITS ---
PROCEDURE: ABDOMEN SINGLE VIEW 09/18/2024 REASON FOR EXAM: DAY 3 SITZ MARKER TECHNIQUE: Single view abdomen. COMPARISON: CT abdomen and pelvis dated 08/11/2024 FINDINGS: Bowel gas: Bowel gas pattern is normal. No evidence of bowel obstruction. Calcifications: Small pelvic calcifications are identified consistent with phleboliths. Atherosclerotic vascular calcifications identified. Bones: Diffuse osteopenia of the lower thorax is noted as well as the lumbar spine and bony pelvis. Degenerative changes of both hips are noted. There is a dextroscoliosis of the lower thoracic spine and upper lumbar spine and a levoscoliosis of the lower lumbar spine. There has been previous vertebroplasty at the L2 and L3 levels. Other: A 2 mm x 4 mm radiopaque Sitz marker is projected over the bowel in the location of the left SI joint. RAD/Abdomen Single View IMPRESSION: The sitz marker is projected over the bowel in the location of the left SI join t. Reading Location: [id number]
== END | disposition home or self-care (01) ==
LOC: RAD 09:54
PROVIDERS: PCP Family Medicine; Referring Provider Nurse Practitioner Acute Care; Visit Provider Nurse Practitioner Acute Care
DX: K59.00 Constipation, unspecified (principal)
CPT/HCPCS: 74018

== ENCOUNTER → 2024-09-20 | Outpatient (CLI) | payer MEDICARE, SELFPAY ==
--- NOTE | 2024-09-20 10:14 | RAD_ITS ---
PROCEDURE: ABDOMEN SINGLE VIEW 09/20/2024 REASON FOR EXAM: DAY 5 SITZ MARKER TECHNIQUE: Single view abdomen. COMPARISON: Comparison is made with prior study dated September 18, 2024. FINDINGS: Bowel gas: Fecal material is seen in the colon. The Sitz marker is now within the rectum. Calcifications: Atherosclerotic vascular calcifications identified. Bones: Previous vertebroplasty of the L2 and L3 vertebrae. Degenerative changes of the lower lumbar spine and levoscoliosis. Other: RAD/Abdomen Single View IMPRESSION: The Sitz marker is now seen in the rectum. Reading Location: [facility]
== END | disposition home or self-care (01) ==
LOC: RAD 10:10
PROVIDERS: PCP Family Medicine; Referring Provider Nurse Practitioner Acute Care; Visit Provider Nurse Practitioner Acute Care
DX: K59.00 Constipation, unspecified (principal)
CPT/HCPCS: 74018

== ENCOUNTER → 2024-10-02 | Outpatient (CLI) | payer MEDICARE, SELFPAY ==
--- NOTE | 2024-10-02 12:57 | SP.MBSS_ITS ---
Modified Barium Swallow Patient Information Study Date: 10/02/24 Study Time: 13:00 Direct Billable Minutes: 114 Total Minutes procedure & reportin Diagnosis: Dysphagia R13.10 Referring Physician: Clarissa Aranda Reason for Referral: Pt attended office visit w/ gastroenterology 09/14/2024 for follow-up after evaluation in ED for N/V/D on 08/11/2024. During visit, the patietn complained of upper esophageal dysphagia w/ pills. Pt denied difficulty swallowing food/drink. Clarissa Aranda CNP referred her for modified barium swallow study and esophagram. Medical History: PMH: Dysphagia, Metabolic encephalopathy, Dehydration, Hypokalemia, Acute hyponatremia, Abdominal pain, Depression, Wears hearing aid and glasses, Uses walker, CLL, Anemia, Non-smoker, Supraclavicular mass, Supraclavicular lymphadenopathy, Vertigo, Hematuria, HLD, High BP, Hx of tonsillectomy. See EMR for full PMH. Current Diet Ordered: Regular textures / Thin liquids Dentition: Natural Teeth and Missing Teeth Mental Status: WNL Respiratory Status: Oxygenating on Room Air Penetration-Aspiration Scale Penetration-Aspiration Scale: OBJECTIVE ASSESSMENT OF SWALLOW FUNCTION (QUANTITATIVE ? PER TRIAL): PENETRATION / ASPIRATION SCALE (SAENZ): 1 = does not enter airway 2 = enters airway/above vocal folds/ejected 3 = enters airway/above vocal folds/not ejected 4 = enters airway/contacts vocal folds/ejected 5 = enters airway/contacts vocal folds/not ejected 6 = enters airway/below vocal folds/ejected 7 = enters airway/below vocal folds/not ejected despite effort 8 = enters airway/below vocal folds/no effort VIDEOFLOROSCOPIC SCALE SCORE (SAENZ): Grade I = aspiration of material that has penetrated into the laryngeal vestibule, intact cough reflex Grade II = aspiration < 10 % of the bolus, intact cough reflex Grade III = aspiration of < 10 % of the bolus, reduced cough reflex or aspiration of > 10 % of the bolus, intact cough reflex Grade IV = aspiration of > 10 % of the bolus, reduced cough reflex Penetration-Aspiration Scale Score Thin Liquid via teaspoon: Result: 1= does not enter airway Thin Liquid via teaspoon Trial 2: Result: 2= enter airway/above vocal folds/ejected Thin Liquid via large single sip: cup: Result: 1= does not enter airway [place] Thick Liquid via large single sip: cup: Result: 1= does not enter airway Pudding via teaspoon: Result: 1= does not enter airway 1/2 Cookie: Result: 1= does not enter airway Thin Liquid via single sip: straw: Result: 1= does not enter airway Thin Liquid via sequential sips:straw: Result: 2= enter airway/above vocal folds/ejected Barium tablet with water: Comment: No PAS score due to no oral clearance. Barium tablet in applesauce: Result: 1= does not enter airway Oral Phase Labial Seal: Interlabial escape, no progression to anterior lip Tongue Control During Bolus Hold: Posterior escape of greater than half of bolus Bolus Preparation/Mastication: Timely and efficient chewing and mashing Bolus Transport/Lingual Motion: Delayed initiation of tongue motion Oral Residue: Residue collection on oral structures (pudding, which pt transported to vallecula, then swallowed w/ delayed second swallow) Pharyngeal Phase Initiation of Pharyngeal Swallow: Bolus head in pyriforms Soft Palate Elevation: Trace column of contrast/air between soft palate and pharyngeal wall Laryngeal Elevation: Comp. Superior move thyroid cart w/comp. apprx arytenoid cart-epig pet Anterior Hyoid Excursion: Partial anterior movement Epiglottic Movement: Complete inversion Laryngeal Vestibule Closure at Height of Swallow: Incomplete; narrow column of air/contrast in laryngeal vestibule (trace laryngeal penetration w/ complete ejection 2X) Pharyngeal Stripping Wave: Present - diminished Pharyngoesophageal Segment Opening: Parital distension and partial duration; parital obstruction of flow Tongue Base Retraction: Narrow column of contrast between tongue base & post. pharyngeal wall Pharyngeal Residue: Collection of residue within or on pharyngeal structures Esophageal Phase Esophageal Clearance: Esophageal retention Diagnosis/Impression Diagnosis: Mild oropharyngeal dysphagia R13.12 Impression: Oral phase findings: -Decreased bolus control w/ posterior loss of >1/2 of thin liquids boluses to the pyriforms prior to swallow onset. -Delayed tongue motion for A-P transport. -Moderate oral residue w/ pudding w/ delayed, but independent second swallow to mostly clear. Pharyngeal phase findings: -Delayed swallow onset. -Mildly decreased TB retraction and pharyngeal stripping wave w/ trace-mild pharyngeal residue. -Trace laryngeal penetration of liquids w/ complete ejection 2X. No aspiration observed. Esophageal phase findings: -CP bar at the level of C5-C6, which did not appear to impact bolus clearance through the UES. -Barium residues at the level of C7, which increased as the study continued. SOLAR ENERGY SYSTEMS ENGINEER to send study to radiologist for further review of this finding. Other findings: -Opacities at the level of C4-C5 bilaterally (SOLAR ENERGY SYSTEMS ENGINEER had the patient rotate her head L and R). SOLAR ENERGY SYSTEMS ENGINEER to send study to radiologist for further review of this finding. Image 1. Barium residues at the level of C7, which increased as the study continued. Recommendations Diet: Regular Textures and Thin Liquids Comment: Medications whole in a puree (yogurt per patient preference) Compensatory Strategies: Small Bites, Small Sips, Alternate bites/solids and sips/liquids (Take a sip after every 1-2 bites), Sitting upright and Remain sitting upright for 30 minutes after PO intake Recommend Repeat Modified Barium Swallow: No Need for Skilled Speech Therapy Services: Yes Comment: -Train the patient in use of strategies to decrease risk for aspiration. -Ongoing assessment of diet tolerance of recommended textures. -Train the patient in oropharyngeal exercise program (lingual resistance, effortful, Renee). Recommended Referrals: GI Consult (Continue GI work up. Ok for participation in esophagram.) Education Completed: 1. Described result of evaluation. and 2. Pt understands evaluation & agrees with goals and treatment plan. Status Active ST Patient: Active Contact Information [facility] Speech Therapy:: Niki Montgomery M.A. [facility]-SOLAR ENERGY SYSTEMS ENGINEER? Speech-Language Pathologist?? [facility] [address] [place] [address]? [email or web address]?? [phone]
--- NOTE | 2024-10-02 13:00 | RAD_ITS ---
EXAM: Modified barium swallow, performed in conjunction with the speech pathologist. CLINICAL HISTORY: Dysphagia. COMPARISON: None. TECHNIQUE: Modified barium swallow, performed in conjunction with the speech pathologist. Fluoroscopy time 160 seconds. Dose: 54.4 mGy-cm. FINDINGS: Anterior to the cervical esophagus, at the level of C7, is seen an area increasing barium deposition, concerning for small diverticulum or anterior ulceration. Incidental note is made of bilateral carotid artery calcification. No laryngeal penetration or aspiration was seen RAD/Swallowing Function w/Video IMPRESSION: 1. Anterior to the cervical esophagus, at the level of C7, is seen an area incr easing barium deposition, concerning for small diverticulum or anterior ulceration. 2. No laryngeal penetration or aspiration was seen. 3. Please also see the speech pathologist's report for additional information. Reading Location: [place] [address]
== END | disposition home or self-care (01) ==
LOC: RAD 12:56
PROVIDERS: PCP Family Medicine; Referring Provider Nurse Practitioner Acute Care; Visit Provider Nurse Practitioner Acute Care
DX: R13.10 Dysphagia, unspecified (principal)
CPT/HCPCS: 74230; 92611

== ENCOUNTER → 2024-11-06 | Outpatient (CLI) | payer MEDICARE, SELFPAY ==
--- NOTE | 2024-11-06 12:21 | RAD_ITS ---
PROCEDURE: SHOULDER MIN 2 VIEWS 11/06/2024 REASON FOR EXAM: RIGHT SHOULDER PAIN TECHNIQUE: Four views of the right shoulder COMPARISON: None RAD/Shoulder min 2 Views IMPRESSION: [id number] degenerative changes of the right shoulder. No acute fracture or dislocations. No acute soft tissue abnormalities. Reading Location: [id number]
== END | disposition home or self-care (01) ==
PROVIDERS: PCP Family Medicine; Referring Provider Anesthesiology Pain Medicine; Visit Provider Anesthesiology Pain Medicine
DX: M25.511 Pain in right shoulder (principal)
CPT/HCPCS: 73030

== ENCOUNTER 2025-01-08 08:39 | Day surgery (SDC) | payer MEDICARE, SELFPAY ==
[2025-01-08] VITALS (7 sets, daily range): BP systolic 131–150; BP diastolic 56–64; PULSE 60–65; RESP 16–18; TEMP 36.6–37; O2SAT 95–100; BMI 22.5
--- NOTE | 2025-01-08 09:12 | PRE.ANES_ITS ---
ASA Classification* ASA Classification ASA Classification: 2 Assessment & Plan Anesthesia* Anesthesia Assessment Anesthesia Assessment: Discussed sedation and/or anesthesia options, risks, benefits, and alternatives with patient/parents/legal guardian/POA. Questions invited. The patient/parents/legal guardian/POA seems to understand and agrees to proceed with anesthesia plan. Reviewed the physical assessment, medical history, allergy history and patient home medications list prior to surgery/procedure/anesthetic and documented any changes. Performed airway and anesthesia risk assessments. Anesthesia Type Anesthesia Type: MAC Anesthesia Focused Assessment* Airway Assessment Mouth opens: >3 cm Mallampati Score: II Labs Anesthesia Preop lab: CBC WBC 5.7 K/mm3 (4.4-11.0) 09/04/24 13:24 09/04/24 RBC 4.24 M/mm3 (4.2-5.4) 09/04/24 13:24 09/04/24 Hgb 12.5 g/dL (12.0-15.0) 09/04/24 13:24 09/04/24 Hct 37.1 % (37-47) 09/04/24 13:24 09/04/24 Plt Count 287 K/mm3 (150-450) 09/04/24 13:24 09/04/24 CHEMISTRY Potassium 4.2 mmol/L (3.3-5.1) 09/04/24 13:24 09/04/24 Sodium 131 mmol/L (133-145) L 09/04/24 13:24 09/04/24 Magnesium 2.2 mg/dL (1.6-2.6) 04/03/24 05:15 04/03/24 Phosphorus 3.5 mg/dL (2.5-4.9) 04/03/24 05:15 04/03/24 BUN 8 mg/dL (4-19) 09/04/24 13:24 09/04/24 Creatinine 0.51 mg/dL (0.70-1.20) L 09/04/24 13:24 Glucose 125 mg/dL (70-99) H 09/04/24 13:24 09/04/24 TSH 3.100 uIU/mL (0.358-3.740) 04/02/24 02:03/08 COAG Pre-Assessment Diagnosis/Proposed Procedure Planned Operative Procedure(s): (R) INTRA ARTICULAR STEROID INJECTION UNDER FLUOROSCOPY Anesthesia History Anesthesia History - satellite dish technician: Anesthesia History - satellite dish technician Hx Hospitalization Yes: dehydration 03-3101/01/25 09:35 Any Problems With Anesthesia No 01/01/25 09:35 Cholinesterase deficiency No 01/01/25 09:35 You/Your Family Experience No 01/01/25 09:35 fever (hyperthermia) with Relationship Recent Exposure to Contagious No 09/11/24 08:59 Disease Does patient have nerve No 01/01/25 09:35 stimulator Patient instructed to have device shut off --Does patient have Pacemaker or ICD? When Was Last Pacemaker Check QUESTION #4 FULL TEXT: You/Your Family Experience fever (hyperthermia) with Anesthesia Last Oral Intake Last Oral intake: Last Oral Intake NPO since Meds taken in AM with sips of water? Meds patient instructed to take am of surgery PONV PONV - satellite dish technician: PONV - satellite dish technician Female Yes 01/01/25 09:35 HX of Motion Sickness No 01/01/25 09:35 HX of N/V After Surgery No 01/01/25 09:35 Non-Smoker Yes 01/01/25 09:35 Duration of Surgery greater No 01/01/25 09:35 than 60 minutes Number of Risk Factors 2 01/01/25 09:35 PONV Score Moderate Risk 01/01/25 09:35 Height & Weight Height & Weight: Anesthesia: Height & Weight Height 5 ft 1 in 09/14/24 10:11 Respiratory Assessment Respiratory Assessment - satellite dish technician: Respiratory Tract Infection Hx - satellite dish technician Hx Respiratory Tract Infection No 01/01/25 09:35 STOP Sleep Apnea STOP Sleep Apnea - satellite dish technician: STOP Sleep Apnea - satellite dish technician Hx Hypertension Yes: on meds 01/01/25 09:35 Hx Sleep Apnea No 01/01/25 09:35 CPAP BIPAP Do you snore loudly (louder No 01/01/25 09:35 than talking or can be heard Do you often feel tired/ No 01/01/25 09:35 fatigued/ sleepy during daytime? Has anyone observed you stop No 01/01/25 09:35 breathing during sleep? STOP Results Negative 01/01/25 09:35 QUESTION #5 FULL TEXT : Do you snore loudly (louder than talking or can be heard through closed doors)? Tobacco Use History Tobacco Use History - satellite dish technician: Tobacco Use History - satellite dish technician Tobacco Use Smoking Status Never smoker 01/01/25 09:35 Hx Tobacco Use No 01/01/25 09:35 Years Smoking Packs Smoked per Day Smoking Cessation Date was within the last 15 years Hx Smoking Cessation Date Hx Smoking Cessation Counseling Hematologic Medial History Hematologic Hx - satellite dish technician: Hematologic Medical Hx - tool maintenance technician Hx of Blood Transfusion No 01/01/25 09:35 Hx of Transfusion in last 3 No 01/01/25 09:35 Months Date of Last Transfusion (if within last 3 months) Ever experience any problems No 01/01/25 09:35 with transfusion(s)? Specify any problems Hx of Preganancy in last 3 No 01/01/25 09:35 Months Nurse Filling Out Transfusion JZOLLINGE 01/01/25 09:35 & Questions: Date: 01/01/25 01/01/25 09:35 Time: 09:40 01/01/25 09:35 Patient unable to answer at this time (ie. confused, unrespo /Reproduction History /Reproductive History - satellite dish technician: /Reproductive Hx- satellite dish technician Hx Now No 01/01/25 09:35 Gestational Age (in weeks): EDC: Hx Hx Para Hx Section SAB No 01/01/25 09:35 Active Medications Active Medications: Current Medications Generic Name Dose Route Start Last Admin Trade Name Freq PRN Reason Stop Dose Admin Lactated Ringer's 1,000 mls @ 15 mls/hr 01/08/25 09:00 IV .Q48H TIM PFSH Medical History Hx: bad fall Metabolic encephalopathy Adverse drug reaction Dehydration Hypokalemia Acute hyponatremia Retroperitoneal lymphadenopathy Abdominal pain Depression Back pain Constipation Wears hearing aid Wears glasses Cancer Thyroid disease Walker as ambulation aid High cholesterol Non-smoker Leg cramps History of echocardiogram History of stress test Cardiology follow-up encounter Cholinesterase deficiency Encounter for education Anemia CLL (chronic lymphocytic leukemia) Hypothyroidism Vertigo Varicose veins of legs Supraclavicular mass Supraclavicular lymphadenopathy Stress incontinence Psoriasis Osteoporosis Mitral valve prolapse Low back pain with right-sided sciatica Hyperlipidemia High blood pressure Hematuria Home Medications ?Medication ?Instructions ?Recorded ?Last Taken ?Type ascorbic acid (vitamin C) 100 mg 100 mg PO DAILY 08/1410/20/23 History tablet calcium carbonate 600 mg PO BID 08/14/2210/19 History cholecalciferol (vitamin D3) 10 10 mcg PO DAILY 10/20/23 History mcg (400 unit) capsule lutein 20 mg capsule 20 mg PO DAILY 08/14/2210/05 History magnesium carbonate 1 cap PO DAILY 08/18/2210/05 History mecobalamin (vitamin B12) 1,000 1,000 mcg PO Q OTHER D AY 03/01/23 10/20/23 History mcg lozenges levothyroxine 88 mcg capsule 88 mcg PO DAILY 06/01/23 09/10/24 History Disability Placard #1 ea 09/07/23 Unknown Rx losartan 50 mg tablet 50 mg PO QHS 01/03/24 History gabapentin 100 mg capsule 100 mg PO QDAY 04/28/24 Unkn own History sertraline 25 mg tablet (Zoloft) 25 mg PO DAILY 09/10/24 History lactulose 10 gram/15 mL oral 15 ml PO QDAY 09/14/24 Un known History solution Allergy/AdvReac Type Severity Reaction Status Date / Time No Known Allergies Allergy Verified 01/08/25 09:12 Family History Brother CAD (coronary artery disease) Cancer Hyperlipemia Mother Cancer Leukemia Sister Cancer Sarcoma Surgical History Hx of kyphoplasty S/P abdominal hysterectomy H/O umbilical hernia repair History of tonsillectomy S/P appendectomy Social History household members: none housing: house Smoking Status: Never smoker alcohol intake: never substance use type: does not use Review of Systems (Anesthesia) ROS Narrative System reviewed and no additional complaints, except as documented.
[2025-01-08] MEDS: Lactated Ringers 1,000 ML 15 ML IV (09:23)
--- NOTE | 2025-01-08 09:50 | RAD_ITS ---
PROCEDURE: FLUORO GUIDED NEEDLE PLACEMENT 01/08/2025 REASON FOR EXAM: RT INTRA ARTICULAR INJECTION TECHNIQUE: FLUORO GUIDED NEEDLE PLACEMENT. Radiation dose: 2.7 seconds of fluoroscopy. 0.21 mGy. 4 images were submitted. COMPARISON: None FINDINGS: Intraoperative fluoroscopic services provided for right shoulder injection. RAD/Fluoro Guided Needle Placement IMPRESSION: Intraoperative fluoroscopic services provided for right shoulder injection. Reading Location: [facility]
[2025-01-08] MEDS: Lidocaine 1% (5 ml sdv) 5 ML Vial (09:56)
--- NOTE | 2025-01-08 09:58 | OP.PCM_ITS ---
Operative Report (Standard) Operative Information Date of Procedure: 01/08/25 Pre-Operative Diagnosis: Osteoarthritis of the right shoulder Post-Operative Diagnosis: Osteoarthritis of the right shoulder Surgery/Procedure Performed: Right shoulder intra-articular, subacromial steroid injection under fluoroscopic guidance drug discovery informatics specialist: No Type of Anesthesia: Local MAC RN Documented Start/Stop Times: Operation Date: 01/08/25 10:10 Case Time Into Pre-Op 01/08/25 08:57 Out of Pre-Op 01/08/25 09:41 Anesthesia Start 01/08/25 09:50 Into Room 01/08/25 09:50 Procedure Start 01/08/25 09:56 Procedure End 01/08/25 09:58 Procedure Start Time: 09:59 Procedure Stop Time: :59 Select all DRAINS/GRAFTS/IMPLANTS that apply: None Estimated Blood Loss: 0 Specimen collected: No Description of surgery: PREOPERATIVE DIAGNOSIS: Osteoarthritis of the right shoulder. POSTOPERATIVE DIAGNOSIS: Osteoarthritis of the right shoulder. ANESTHESIA: MAC. BLOOD LOSS: Minimal. COMPLICATIONS: None. DESCRIPTION OF PROCEDURE: History and physical of today was reviewed. Risks and benefits of the procedure were explained. The patient understood and agreed to proceed. Informed consent was obtained. IV inserted per routine protocol. The patient was taken to the operating room and placed in the supine position. The right shoulder area was prepped and draped in a sterile fashion using iodine x3. Under fluoroscopic guidance on AP view, the right shoulder joint was visualized. The skin and subcutaneous tissue was anesthetized with approximately 1 mL of 1% lidocaine using a 25-gauge regular needle at the anterior shoulder joint area. Under direct visualization with fluoroscopy on AP view, using a 22-gauge 3-1/2-inch spinal needle, the needle was advanced via the skin directed towards the intraarticular position at the supraspinatus level and subacromial level. Once the tip of the needle was at the vicinity of the shoulder joint, after negative aspiration for blood, positive aspiration for synovial fluid, a total of 3 mL of contrast was injected to confirm correct placement of the needle as well as anterior and posterior spread of the contrast at the shoulder joint. Cephalocaudal spread as well was visualized through the arthrogram. After confirmation on AP as well as oblique view and repeated negative aspiration for blood, a total of 5 mL of preservative-free 0.25% Marcaine with 40 mg of Depo-Medrol was injected easily. The needle was then removed intact. The patient experienced no sign or symptoms of intravascular injection. The patient experienced no paresthesia. The procedure was completed without any apparent difficulty or any complications. The patient appeared to tolerate it well. Assessment and plan: This is an 84-year-old female with osteoarthritis of the right shoulder status post right shoulder intra-articular, subacromial steroid injection under fluoroscopic guidance, patient will continue her current medications, patient wi ll follow-up in approximately 2 weeks for reevaluation. Surgical Findings: 0 Complications Complications: No Admit VTE Documentation VTE Present on Admission: No VTE Mechan Device Prophylaxis: None VTE Pharm Prophylaxis ordered?: No
--- NOTE | 2025-01-08 10:05 | PCM.POST.ANE ---
Anesthesia: Postop Eval I Current Vital Signs Temperature: 98.1 F Pulse Rate: 62 Blood Pressure: 136/56 Respiratory Rate: 16 Pulse Ox: 97 Oxygen Delivery Method: Room Air Assessment Airway patent: Yes Spontaneous unlabored respirations: Yes Mental status: Awake nausea: No Vomiting: No Anesthesia Complication: No Fluid Hydration Crystalloid volume administer (ml): 150 Total IV fluid infused: 150 Progress Note Anesthesia document: Postop Eval 1 completed: No
--- NOTE | 2025-01-08 11:45 | POSTOPAN2_ITS ---
Anesthesia Postop Eval I Sum Postop Eval Completion status Anesthesia document: Postop Eval 1 completed: No Anesthesia Postop Eval I Summary Anesthesia Postop Eval I Summary: Anesthesia Postop Eval I: Assessment Summary Airway patent Yes 01/08/25 10:06 VOCAL MUSIC INSTRUCTOR.ACAR Spontaneous unlabored Yes 01/08/25 10:06 VOCAL MUSIC INSTRUCTOR.ACAR respirations Mental status Awake 01/08/25 10:06 VOCAL MUSIC INSTRUCTOR.ACAR nausea No 01/08/25 10:06 VOCAL MUSIC INSTRUCTOR.ACAR Vomiting No 01/08/25 10:06 VOCAL MUSIC INSTRUCTOR.ACAR Anesthesia Postop Eval I: Fluid Summary Crystalloid volume administer 150 01/08/25 10:06 VOCAL MUSIC INSTRUCTOR.ACAR (ml) Colloids volume administered ( ml) Blood Product volume administered (ml) Total IV fluid infused 150 01/08/25 10:06 VOCAL MUSIC INSTRUCTOR.ACAR Anesthesia Postop Eval I: Summary Notes Anesthesia Complication No 01/08/25 10:06 VOCAL MUSIC INSTRUCTOR.ACAR Anesthesia Complication Comment: Post-operative progress note Anesthesia: Postop Eval II Evaluation Mental status: Awake Pain Level: 2 nausea: No Vomiting: No
--- NOTE | 2025-01-08 11:45 | PCM.POSTANE2 ---
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
== END 2025-01-08 10:43 | disposition home or self-care (01) ==
LOC: SDC 08:42 → AC 08:45
PROVIDERS: PCP Family Medicine; Referring Provider Anesthesiology Pain Medicine; Visit Provider Anesthesiology Pain Medicine
PROC: 3E0U3GC Introduction of Other Therapeutic Substance into Joints, Percutaneous Approach (ICD-10-PCS; CPT 20610; principal; 2025-01-08 10:05)
DX: M19.011 Primary osteoarthritis, right shoulder (principal); I10 Essential (primary) hypertension; E03.9 Hypothyroidism, unspecified; Z79.890 Hormone replacement therapy; Z79.899 Other long term (current) drug therapy
CPT/HCPCS: 20610; 01992; 76000; 77002

== ENCOUNTER 2025-03-23 15:20 | Emergency (ER) | payer MEDICARE, SELFPAY ==
[2025-03-23 15:20] VITALS: BP 175/62; PULSE 76; RESP 16; TEMP 36.8; O2SAT 100
--- NOTE | 2025-03-23 16:09 | EKG12_ITS ---
Test Reason : CP Blood Pressure : */* mmHG Vent. Rate : 72 BPM Atrial Rate : 72 BPM P-R Int : 176 ms QRS Dur : 84 ms QT Int : 376 ms P-R-T Axes : 79 52 66 degrees QTcB Int : 411 ms Normal sinus rhythm Normal ECG Confirmed by KATERIN RAMOS, UZIEL ([id number]), make up editor PEDRO WAGNER ([id number]) on 03/26/2025 6:45:15 AM Referred By: Confirmed By: UZIEL CONKLIN MD
--- NOTE | 2025-03-23 16:10 | CT_ITS ---
PROCEDURE: CHEST WITH CONTRAST 03/23/2025 REASON FOR EXAM: ANTERIOR CHEST PAIN TECHNIQUE: Axial chest CT with intravenous contrast. Coronal and Sagittal reconstruction series were provided. CONTRAST: 100 cc of Isovue 370. One or more dose reduction techniques were used (e.g., Automated exposure control, adjustment of the mA and/or kV according to patient size, use of iterative reconstruction technique). COMPARISON: CT chest, abdomen and pelvis 08/26/2022 FINDINGS: Hardware: None. Lymph nodes: There is interval increase in the multiple enlarged bilateral axillary nodes, the largest on the right measures 2.3 x 2.1 cm, the largest on the left measures 3.7 x 2.2 cm. No enlarged mediastinal or hilar lymph nodes. Heart and Vasculature: The heart is nonenlarged. No pericardial effusion. Atherosclerotic calcifications of the thoracic aorta. Pulmonary arteries are unremarkable. Lungs and Airways: Mild dependent atelectasis. No focal consolidation or discrete pulmonary mass. Airways are patent. Pleura: No pleural effusion or pneumothorax. Upper Abdomen: Unremarkable as imaged. Bones: Degenerative changes of the thoracic spine. No acute fractures. CT/Chest WITH Contrast IMPRESSION: 1. Interval increase in the multiple enlarged bilateral axillary lymph nodes. 2. No other acute changes in the chest as imaged. Reading [facility]: [facility]
[2025-03-23 16:20] VITALS: BP 159/87; PULSE 76; RESP 16; O2SAT 97
--- OUTSIDE RECORDS SUMMARY | 2025-03-23 16:34 | XMS RPT_ITS | CCD ---
Author Organization [facility]iniSymi Care Team Providers Care Paint Spray Inspector Name Role Phone Tacos Estes DO Unavailable LIZZETTE APPLE DO Primary Care Physician Haris PT, Joan Unavailable Unavailable Chepe CALIBRATION SPECIALIST, CALIBRATION SPECIALIST-C Marly Primary Care Provider Chepe CALIBRATION SPECIALIST, CALIBRATION SPECIALIST-C Marly Referring Provider [phone] Dr. Hortencia Mclaughlin Attending Provider LIZZETTE APPLE DO Primary Care Physician Chepe CALIBRATION SPECIALIST, CALIBRATION SPECIALIST-C Marly Primary Care Provider Chepe CALIBRATION SPECIALIST, CALIBRATION SPECIALIST-C Marly Referring Provider Ewelina ANDERSON, CALIBRATION SPECIALIST-C Shanell Attending Provider [phone] Dr. Hortencia Mclaughlin Attending Provider Dr. Lizzette Apple Primary Care Provider Dr. Lizzette Apple Referring Provider LIZZETTE APPLE DO Attending Unavailable LIZZETTE APPLE DO Primary Care Unavailable LIZZETTE APPLE DO Admitting Unavailable NURIS ENGEL Attending LIZZETTE Stringer DO Primary Care Unavailable DR CHANTAL ZAPIEN MD Attending UnavailLIZZETTE Alcaraz DO Primary Care Unavailable LIZZETTE APPLE DO Attending Unavailable LIZZETTE APPLE DO Primary Care Unavailable GOKUL REYES MD Attending Unavailable LIZZETTE APPLE DO Primary Care Unavailable LEONARDO GUIDRY DO Attending Unavailable LIZZETTE APPLE DO Primary Care Unavailable LIZZETTE APPLE DO Attending Unavailable LIZZETTE APPLE DO Primary Care Unavailable LIZZETTE APPLE DO Attending Unavailable AMBIKA DO, LIZZETTE Primary Care Unavailable VACCARELLI PA-C, GALE Attending Unavailab le AMBIKA DO, LIZZETTE Primary Care Unavailable NITHYA DURAN, DR BOWER Attending Unavailable AMBIKA DO, LIZZETTE Primary Care Unavailable KAREN ADJUNCT ENGLISH INSTRUCTOR-SENIOR OFFICE ASSISTANT, LEONARDO Attending Unavai lable AMBIKA DO, LIZZETTE Primary Care Unavailable AMBIKA DO, LIZZETTE Attending Unavailable AMBIKA DO, LIZZETTE Primary Care Unavailable KAREN ADJUNCT ENGLISH INSTRUCTOR-SENIOR OFFICE ASSISTANT, LEONARDO Attending Unavai lable AMBIKA DO, LIZZETTE Primary Care Unavailable AMBIKA DO, LIZZETTE Attending Unavailable AMBIKA DO, LIZZETTE Primary Care Unavailable MAST ADJUNCT ENGLISH INSTRUCTOR-SENIOR OFFICE ASSISTANT, BENITO Attending Unavailabl e AMBIKA DO, LIZZETTE Primary Care Unavailable AMBIKA DO, LIZZETTE Attending Unavailable AMBIKA DO, LIZZETTE Primary Care Unavailable Unavailable Primary Care Provider Unavailabl e Ambika DURAN, Dr. Knox Primary Care Provider 1(09 [phone]) Ambika DURAN, Dr. Knox Referring Provider Joyce Taylor Attending Provider Dr. Kamar Hurt MD Attending Provider Dr. Hortencia Mclaughlin MD Attending Provider Dr. Hortencia Mclaughlin MD Referring Provider Ewelina ANDERSON-C, Shanell Attending Provider Dr. Brien Ocampo MD Attending Provider [phone] Dr. Brien Ocampo MD Referring Provider Dr. Flower Arndt DO Emergency Provider Dr. Lizzette Apple DO Primary Care Provider [phone] [phone] Dr. Lizzette Apple DO Referring Provider Ewelina MATHEW, Shanell Attending Provider Dr. Brien Ocampo MD Attending Provider Dr. Brien Ocampo MD Referring Provider Dr. Flower Arndt DO Attending Provider Dr. Flower Arndt DO Emergency Provider Manoj CALIBRATION SPECIALIST-CClarissa Attending Provider Lissette RAMOS, Dr. Burnett Attending Provider Lissette RAMOS, Dr. Burnett Referring Provider [phone] Manoj CALIBRATION SPECIALIST-CClarissa Referring Provider Dr. Lizzette Apple DO Primary Care Provider [phone] Dr. Lizzette Apple DO Referring Provider Ewelina CALIBRATION SPECIALIST-C, Shanell Attending Provider [phone] Terrence RAMOS, Dr. Tesfaye Attending Provider [phone] Dr. Brien Ocampo MD Referring Provider [phone] AMBIKA DO, LIZZETTE Primary Care Unavailable RAMON COX MD Attending Unavailable AMBIKA DO, LIZZETTE Primary Care Unavailable LU WESTN-SENIOR OFFICE ASSISTANTNURIS Attending Yana APPLE DO, LIZZETTE Primary Care Unavailable AMBIKA DOLIZZETTE Attending Unavailable AMBIKA DOLIZZETTE Attending Unavailable AMBIKA DO, LIZZETTE Primary Care Unavailable AMBIKA DO, LIZZETTE Primary Care Unavailable AMBIKALIZZETTE Walker DO Attending Unavailable Dr. Lizzette Apple DO Primary Care Provider 1([phone]) Ambika DURAN, Dr. Knox Referring Provider Manoj CALIBRATION SPECIALIST-CClarissa Attending Provider Ewelina CALIBRATION SPECIALIST, Shanell Attending Unavailable Ewelina CALIBRATION SPECIALIST, Shanell Referring Unavailable Ambika, Lizzette Primary Care Unavailable Kamar Hurt Attending Unavailable Ambika, Lizzette Primary Care Unavailable Ewelina CALIBRATION SPECIALIST, Shanell Attending Unavailable Ambika, Lizzette Referring Unavailable Ambika, Lizzette Primary Care Unavailable Ewelina CALIBRATION SPECIALIST, Shanell Attending Unavailable Ambika, Lizzette Referring Unavailable Ambika, Lizzette Primary Care Unavailable Clarissa Aranda Attending Unavailable Ambika, Lizzette Referring Unavailable Ambika, Lizzette Primary Care Unavailable Clarissa Aranda Referring Unavailable Clarissa Aranda Attending Unavailable Ambika, Lizzette Primary Care Unavailable TerrenceBrien Attending Unavailable Ambika, Lizzette Primary Care Unavailable ManojClarissa Attending Unavailable Manoj, Clarissa Referring Unavailable Ambika, Lizzette Primary Care Unavailable Manoj, Clarissa Attending Unavailable Ambika, Lizzette Referring Unavailable Ambika, Lizzette Primary Care Unavailable Ewelina CALIBRATION SPECIALIST, Shanell Attending Unavailable Ambika, Lizzette Referring Unavailable Ambika, Lizzette Primary Care Unavailable Carlos Enrique Nguyễn Admitting Unavailable Victoriano Cannon Attending Unavailable Ambika, Lizzette Primary Care Unavailable Carlos Enrique Nguyễn Consulting Unavailable Markel Mitchell Consulting Unavailable Victoriano Cannon Consulting Unavailable Carlos Enrique Nguyễn Attending Unavailable Markel Mitchell Attending Unavailable Kamar Hurt Attending Unavailable Ambika, Lizzette Primary Care Unavailable Ambika, Lizzette Primary Care Unavailable Hortencia Mclaughlin Attending Unavailable GelaciokarusHortencia Referring Unavailable Ambika, Lizzette Primary Care Unavailable Brien Ocampo Attending Unavailable Brien Ocampo Referring Unavailable Ambika, Lizzette Primary Care Unavailable Brien Ocampo Attending Unavailable Brien Ocampo Referring Unavailable Antonina Lisa Attending Unavailable BasaliAntonina Referring Unavailable Ambika, Lizzette Primary Care Unavailable ManojCaterinaClarissa Referring Unavailable ManojClarissa Attending Unavailable Ambika, Lizzette Primary Care Unavailable Manoj, Clarissa Referring Unavailable ManojCaterinaClarissa Attending Unavailable Ambika, Lizzette Primary Care Unavailable Jaime Peters Attending Unavailable Ambika, Lizzette Primary Care Unavailable Carlos Enrique Nguyễn Consulting Unavailable Victoriano Cannon Attending Unavailable Ambika, Lizzette Primary Care Unavailable Carlos Enrique Nguyễn Admitting Unavailable Markel Mitchell Consulting Unavailable Brien Ocampo Referring Unavailable TerrenceBrien Attending Unavailable Ambika, Lizzette Primary Care Unavailable TerrenceBrien Attending Unavailable Terrence, Brien Referring Unavailable Ambika, Lizzette Primary Care Unavailable AlessandraDamonyn Attending Unavailable Ambika, Lizzette Referring Unavailable Ambika, Lizzette Primary Care Unavailable AlessandraDamonyn Attending Unavailable AlessandraBernardJoyce Referring Unavailable Ambika, Lizzette Primary Care Unavailable Flower Arndt Attending Unavailable Ambika, Lizzette Primary Care Unavailable Lizzette Apple Primary Care Unavailable Brien Ocampo Attending Unavailable Brien Ocampo Referring Unavailable Medications Current Medications Medication Drug Class(es) Dates Sig (Normalized) Sig (Original) acetaminophen 1000 mg oral tablet (2 sources) Start: 04-06-2024 take 1 dose by mouth every six hours acetaminophen Dose : 1,000 mg =, Oral, q6hr, 0 Refill(s) Start Date: 04/06/24 Status: Ordered Repeat number: 1 amoxicillin 875 mg / clavulanate 125 mg oral tablet (2 sources) Penicillin-class Antibacterial Start: 11-03-2023 End: 11-13-2023 take 1 tablet by mouth every twelve hours ascorbic acid 100 mg oral tablet (20 sources) Vitamin C Start: 08-14-2022 take 1 tablet by mouth once daily Ascorbic Acid (Vitamin C) 100 mg tablet Active 100 mg PO DAILY August 14, 2022 1:00am Start: 04-11-2019 Vitamin C Dose : 100 mg =, Chewed, qDay, 0 Refill(s) Start Date: 04/11/19 Status: Ordered brompheniramine maleate 0.4 mg/ml / dextromethorphan hydrobromide 2 mg/ml / pseudoephedrine hydrochloride 6 mg/ml oral solution (1 source) alpha-Adrenergic Agonist, Uncompetitive U-ijzdkc-V-aspartate Receptor Antagonist, Sigma-1 Agonist Start: 08-12-2022 End: 08-26-2022 take 1 dose by mouth four times daily as needed Bromfed DM oral syrup Dose = 5 mL, Oral, QID, PRN for cold symptoms, X 7 day(s), # 120 mL, 1 Refill(s), Pharmacy: [facility], Lab test positive for detection of COVID-19 virus Cough, 159.5, cm, 08/05/22 16:04:00 EST, Height Start Date: 08/12/22 Stop Date: 08/26/22 Status: Ordered busPIRone hydrochloride 5 mg oral tablet (2 sources) Start: 10-05-2024 busPIRone 5 mg oral tablet Dose : 5 mg = 1 tab(s), Oral, BID, # 60 tab(s), 2 Refill(s), Pharmacy: [facility], Anxiety, 155, cm, 10/05/24 9:33:00 EDT, Height, kg, 10/05/24 9:33:00 EDT, Dosing Weight Start Date: 10/05/24 Status: Ordered Quantity: 60.0 Unit: tab(s) Repeat number: 3 Indications: Anxiety disorder, unspecified; Calcium (5 sources) Phosphate Binder, Calcium Start: 04-11-2019 calcium (as carbonate) 600 mg oral tablet Dose : 600 mg = 1 tab(s), Oral, qDay, 0 Refill(s) Start Date: 04/11/19 Status: Ordered calcium carbonate 1500 mg oral tablet (20 sources) Start: 08-14-2022 take 1 tablet by mouth twice daily Calcium Carbonate 600 mg calcium (1,500 mg) tablet Active 600 mg PO TWICE A DAY August 14, 2022 1:00am Start: 08-14-2022 take 600 mg by mouth once taylor y Calcium Carbonate Active 600 MG PO DAILY August 14, 2022 1:00am Start: 04-11-2019 calcium (as ca rbonate) 600 mg oral tablet Dose : 600 mg = 1 tab(s), Oral, qDay, 0 Refill(s) Start Date: 04/11/19 Status: Ordered cephalexin 500 mg oral tablet (2 sources) Cephalosporin Antibacterial Start: 05-04-2023 End: 05-14-2023 cephalexin 500 mg oral tablet Dose : 500 mg = 1 tab(s), Oral, BID, X 10 day(s), # 20 tab(s), 0 Refill(s), 05/14/23 5:37:00 PM EST, Pharmacy: [facility], 158.5, cm, 10/23/22 9:40:00 EDT, Height, 59.3, kg, 05/04/23 17:09:00 EST, Dosing Weight Start Date: 05/04/23 Stop Date: 05/14/23 Status: Ordered cholecalciferol 0.01 mg oral capsule (7 sources) Vitamin D Start: 08-14-2022 take 1 capsule by mouth once daily Cholecalciferol (Vitamin D3) 10 mcg (400 unit) capsule Active 10 ug PO DAILY August 14, 2022 1:00am Disability Placard (6 sources) Start: 09-07-2023 Disability Placard Active 0 .Route .MEDSUPPLY 1 0 September 07, 2023 12:00am October 04, 2025 12:00am Osteoarthritis Unspecified osteoarthritis, unspecified site As directed Start: 09-07-2023 Disability Sharon card Active 0 .Route .MEDSUPPLY 1 September 07, 2023 12:00am October 04, 2025 12:00am As directed Start: 09-07-2023 Disability Sharon card Active 0 .Route .MEDSUPPLY 1 September 06, 2023 11:00pm October 03, 2025 11:00pm As directed Start: 09-07-2023 Disability Sharon card Active 0 .Route .MEDSUPPLY September 07, 2023 12:00am As directed DME MISCellaneous (7 sources) Start: 10-19-2023 DME MISCellane ous See Instructions, Electronic lift chair, # 1 EA, 0 Refill(s), Compression fracture of vertebra CLL (chronic lymphocytic leukemia), 59.3 Start Date: 10/19/23 Status: Ordered Quantity: 1.0 Unit: EA Repeat number: 1 Indications: Chronic lymphocytic leukemia of B-cell type not having achieved remission; Collapsed vertebra, not elsewhere classified, site unspecified, initial encounter for fracture; Start: 10-19-2023 DME MISCellane ous See Instructions, Electronic lift chair, # 1 EA, 0 Refill(s), Compression fracture of vertebra CLL (chronic lymphocytic leukemia), 59.3 Start Date: 10/19/23 Status: Ordered gabapentin 100 mg oral capsule (7 sources) Anti-epileptic Agent Start: 04-11-2024 take 1 capsule by mouth once daily Gabapentin 100 mg capsule Active 100 mg PO daily April 28, 2024 1:00am hydroCHLOROthiazide 25 mg oral tablet (9 sources) Thiazide Diuretic Start: 10-29-2021 hydroCHLOROthiazide 25 mg oral tablet Dose : 25 mg = 1 tab(s), Oral, qDay, # 90 tab(s), 3 Refill(s), Pharmacy: [facility] ([facility], Hypertension High blood pressure, 159, cm, 10/29/21 7:54:00 EDT, Height, kg, 10/29/21 7:54:00 EDT, Dosing Weight Start Date: 10/29/21 Status: Ordered Start: 10-08-2020 hydroCHLOROthi azide 25 mg oral tablet Dose : 25 mg = 1 tab(s), Oral, qDay, # 90 tab(s), 3 Refill(s), Pharmacy: [facility] ([facility], Hypertension, 160, cm, 10/08/20 8:35:00 EDT, Height, kg, 10/08/20 8:35:00 EDT, Dosing Weight Start Date: 10/08/20 Status: Ordered lactulose 667 mg/ml oral solution (8 sources) Osmotic Laxative Start: 09-14-2024 take 1 mL by mouth once daily Lactulose 10 gram/15 mL solution Active 15 mL PO daily September 14, 2024 12:00am Start: 04-03-2024 End: 08-11-2024 Lactulose 20 gram/30 mL solu tion Discontinued 20 g PO TWICE A DAY 1499 06April 03, 2024 12:00am August 11, 2024 1:57pm 20 grams once or twice daily for constipation levocetirizine dihydrochloride 5 mg oral tablet (4 sources) Histamine-1 Receptor Antagonist Start: 12-15-2023 Xyzal 5 mg oral tablet Dose : 5 mg = 1 tab(s), Oral, qHS, # 90 tab(s), 1 Refill(s), Pharmacy: [facility], Seasonal allergies, 157, cm, 12/14/23 11:20:00 EDT, Height, kg, 12/14/23 11:20:00 EDT, Dosing Weight Start Date: 12/15/23 Status: Ordered Quantity: 90.0 Unit: tab(s) Repeat number: 2 Indications: Other seasonal allergic rhinitis; losartan potassium 50 mg oral tablet (20 sources) Angiotensin 2 Receptor Juan C Start: 08-14-2022 End: 01-03-2024 take 1 tablet by mouth at bedtime Losartan 50 mg tablet Active 50 mg PO AT BEDTIME January 03, 2024 2:50pm Start: 08-03-2022 End: 08-10-2022 losartan 50 mg oral tablet D ose : 50 mg = 1 tab(s), Oral, BID, # 14 tab(s), 0 Refill(s), Pharmacy: [facility], Hypertension High blood pressure, 159.5, cm, 07/07/22 15:22:00 EST, Height, kg, 07/07/22 15:22:00 EST, Dosing Weight Start Date: 08/03/22 Stop Date: 08/10/22 Status: Ordered Start: 06-03-2022 losartan 50 mg oral tablet Dose : 50 mg = 1 tab(s), Oral, BID, Increased dosing, # 180 tab(s), 1 Refill(s), Pharmacy: [facility] ([facility]) [place], Hypertension High blood pressure, 160, cm, 05/06/22 8:04:00 EST, Height, kg, 05/06/22 8:04:00 EST, Dosing Weight Start Date: 06/03/22 Status: Ordered Start: 10-29-2021 End: 05-26-2022 losartan 50 mg oral tablet D ose : 50 mg = 1 tab(s), Oral, qDay, # 14 tab(s), 0 Refill(s), Pharmacy: [facility], Hypertension High blood pressure, 160, cm, 05/06/22 8:04:00 EST, Height, kg, 05/06/22 8:04:00 EST, Dosing Weight Start Date: 05/12/22 Stop Date: 05/26/22 Status: Ordered Start: 10-08-2020 losartan 50 mg oral tablet Dose : 50 mg = 1 tab(s), Oral, qDay, # 90 tab(s), 3 Refill(s), Pharmacy: [email or web address] ([facility], Hypertension, 160, cm, 10/08/20 8:35:00 EDT, Height, kg, 10/08/20 8:35:00 EDT, Dosing Weight Start Date: 10/08/20 Status: Ordered Start: 10-05-2017 LOSARTAN POTAS SIUM 50 MG TABS once daily LOSARTAN POTASSIUM [id number] Tacos Estes DO lutein 20 mg oral capsule (20 sources) Start: 04-11-2019 take 1 capsule by mouth once daily Lutein 20 mg capsule Active 20 mg PO DAILY August 14, 2022 1:00am give with meal/snack magnesium carbonate (7 sources) Start: 08-18-2022 magnesium carb alexandra Active 1 NMA PO DAILY August 18, 2022 12:00am Start: 08-18-2022 magnesium carb alexandra Active 1 NMA PO DAILY August 17, 2022 11:00pm Start: 08-18-2022 magnesium carb alexandra Active August 18, 2022 12:00am magnesium oxide 250 mg oral tablet (14 [...] tab(s), 0 Refill(s), 05/07/21 9:18:00 EST, Pharmacy: [facility], Vertigo, 160.5, cm, 04/30/21 8:25:00 EST, Height, kg, 04/30/21 8:25:00 EST, Dosing Weight Start Date: 04/30/21 Stop Date: 05/07/21 Status: Ordered mecobalamin (1 source) Start: 03-01-2023 take 1000 ug by mouth every other day Mecobalamin (Vitamin B12) Active 1000 MCG PO every other day March 01, 2023 12:00am allow to dissolve in mouth OR may chew lightly before swallowing Mecobalamin (Vitamin B12) 1,000 mcg lozenge (5 sources) Start: 03-01-2023 take 1000 ug by mouth every other day Mecobalamin (Vitamin B12) 1,000 mcg lozenge Active 1000 ug PO every other day March 01, 2023 12:00am allow to dissolve in mouth OR may chew lightly before swallowing Start: 03-01-2023 take 1000 ug by mout h every other day Mecobalamin (Vitamin B12) 1,000 mcg lozenge Active 1000 ug PO every other day February 28, 2023 11:00pm allow to dissolve in mouth OR may chew lightly before swallowing meloxicam 15 mg oral tablet (4 sources) Nonsteroidal Anti-inflammatory Drug Start: 09-15-2023 Mobic 15 mg oral tablet Dose : 15 mg = 1 tab(s), Oral, qDay, # 30 tab(s), 0 Refill(s), Pharmacy: [facility], 160, cm, 09/13/23 11:37:00 EDT, Height, kg, 09/13/23 11:37:00 EDT, Dosing Weight Start Date: 09/15/23 Status: Ordered Start: 10-05-2017 MELOXICAM 15 M G TABS once daily MELOXICAM [id number] Scot D Estes DO ondansetron 4 mg oral tablet (14 sources) Serotonin-3 Receptor Antagonist Start: 11-09-2024 End: 11-12-2024 take 1 tablet by mouth twice daily as needed for nausea and vomiting Zofran ODT use ondansetron oral tablet, disintegrating Dose : 4 mg =, Oral, BID, As needed for nausea and vomiting, # 6 tab(s), 0 Refill(s) Start Date: 11/09/24 Stop Date: 11/12/24 Status: Ordered Quantity: 6.0 Unit: tab(s) Repeat number: 1 Start: 08-11-2024 End: 01-01-2025 take 1 tablet by mouth every eight hours as needed for nausea Ondansetron 4 mg tablet,disintegrating Discontinued 4 mg PO EVERY 8 HOURS NEEDED as needed for Nausea 10 August 11, 2024 1:00am January 01, 2025 9:28am Start: 04-03-2024 End: 04-28-2024 take 1 tablet by mouth every six hours as needed for nausea and vomiting Ondansetron Hcl 4 mg tablet Discontinued 4 mg PO EVERY 6 HOURS as needed for nausea and vomiting 30 April 03, 2024 12:00am April 28, 2024 10:43am Start: 03-30-2024 End: 04-06-2024 ondansetron 4 mg oral tablet , disintegrating Dose : 4 mg = 1 tab(s), Oral, q8h, PRN as needed for nausea/vomiting, X 7 day(s), # 21 tab(s), 0 Refill(s), 04/06/24 12:31:00 PM EDT, Pharmacy: [facility], Nausea and vomiting, 157, cm, 03/30/24 [...] 0 Refill(s), 10/02/23 8:59:00 AM EDT, Pharmacy: [facility], Lumbar back pain, 159, cm, 09/22/23 8:01:00 EDT, Height, kg, 09/22/23 8:01:00 EDT, Dosing Weight Start Date: 09/22/23 Stop Date: 10/02/23 Status: Ordered oxyCODONE hydrochloride 5 mg oral tablet (7 sources) Opioid Agonist Start: 11-09-2024 End: 11-12-2024 oxyCODONE 5 mg oral tablet ( IMMEDIATE release ) Dose : 5 mg = 1 tab(s), PO, q6hr, As needed for pain take with food, X 3 day(s), # 12 tab(s), 0 Refill(s), 11/12/24 11:54:00 AM EDT, Wrist fracture, left, 55.8 Start Date: 11/09/24 Stop Date: 11/12/24 Status: Ordered Quantity: 12.0 Unit: tab(s) Repeat number: 1 Indications: Fracture of unspecified carpal bone, left wrist, initial encounter for closed fracture; Start: 10-05-2023 End: 01-03-2024 take 1 capsule by mouth every six hours as needed for pain Oxycodone 5 mg capsule Discontinued 5 mg PO EVERY 6 HOURS as needed for pain 12 3 0 October 05, 2023 January 03, 2024 2:50pm Low back pain with right-sided sciatica Lumbago with sciatica, right side predniSONE 10 mg oral tablet (1 source) Start: 02-23-2022 End: 02-28-2022 predniSONE 10 mg oral tablet Dose : 10 mg = 1 tab(s), Oral, BID, # 10 tab(s), 0 Refill(s), Pharmacy: [facility], 157.6, cm, 02/23/22 13:57:00 EDT, Height, kg, 02/23/22 13:57:00 EDT, Dosing Weight Start Date: 02/23/22 Stop Date: 02/28/22 Status: Ordered sertraline 50 mg oral tablet (6 sources) Serotonin Reuptake Inhibitor Start: 10-05-2024 sertraline 50 mg ora l tablet Dose : 50 mg = 1 tab(s), Oral, qDay, # 30 tab(s), 5 Refill(s), Pharmacy: [facility], Major depression Anxiety, 155, cm, 10/05/24 9:33:00 EDT, Height, kg, 10/05/24 9:33:00 EDT, Dosing Weight Start Date: 10/05/24 Status: Ordered Quantity: 30.0 Unit: tab(s) Repeat number: 6 Indications: Major depressive disorder, single episode, unspecified; Anxiety disorder, unspecified; Start: 09-11-2024 take 1 tablet by zack once daily Sertraline (Zoloft) 25 mg tablet Active 25 mg PO DAILY September 11, 2024 12:00am levothyroxine sodium 0.088 mg oral tablet (20 sources) l-Thyroxine Start: 08-24-2024 levothyroxine 88 mcg (0.088 mg) oral tablet Dose : 88 mcg = 1 tab(s), Oral, qDay, 1 tablet by mouth daily, # 90 tab(s), 1 Refill(s), Pharmacy: [facility], Hypothyroid, 155, cm, 08/24/24 11:03:00 EDT, Height, kg, 08/24/24 11:03:00 EDT, Dosing Weight Start Date: 08/24/24 Status: Ordered Quantity: 90.0 Unit: tab(s) Repeat number: 2 Indications: Hypothyroidism, unspecified; Start: 02-16-2024 levothyroxine 88 mcg (0.088 mg) [...] tab(s), 1 Refill(s), Pharmacy: [facility] ([facility]) [place], Hypothyroid, 157, cm, 11/03/23 8:52:00 EDT, Height, kg, 11/03/23 8:52:00 EDT, Dosing Weight Start Date: 11/09/23 Status: Ordered Start: 10-23-2022 levothyroxine 88 mcg (0.088 mg) oral tablet Dose : 88 mcg = 1 tab(s), Oral, qDay, # 90 tab(s), 1 Refill(s), Pharmacy: [facility] ([facility]) [place], Hypothyroid, 158.5, cm, 10/23/22 9:40:00 EDT, Height, kg, 10/23/22 9:40:00 EDT, Dosing Weight Start Date: 10/23/22 Status: Ordered Start: 08-14-2022 End: 06-01-2023 take 1 capsule by mouth once daily Levothyroxine 88 mcg capsule Active 88 ug PO DAILY June 01, 2023 2:14pm Start: 05-13-2022 levothyroxine 88 mcg (0.088 mg) oral tablet Dose : 88 mcg = 1 tab(s), Oral, qDay, Increased dose, please send immediately, # 90 tab(s), 1 Refill(s), Pharmacy: [email or web address] ([facility], Hypothyroid, 160, cm, 05/06/22 8:04:00 EST, Height Start Date: 05/13/22 Status: Ordered Start: 10-29-2021 End: 05-26-2022 levothyroxine 75 mcg (0.075 mg) oral tablet Dose : 75 mcg = 1 tab(s), Oral, qDay, # 14 tab(s), 0 Refill(s), Pharmacy: [facility], Hypothyroidism Hypothyroid, 160, cm, 05/06/22 8:04:00 EST, Height, kg, 05/06/22 8:04:00 EST, Dosing Weight Start Date: 05/12/22 Stop Date: 05/26/22 Status: Ordered Start: 10-31-2020 levothyroxine 75 mcg (0.075 mg) oral tablet Dose : 75 mcg = 1 tab(s), Oral, qDay, # 10 tab(s), 0 Refill(s), Pharmacy: [facility], Hypothyroidism, 160, cm, 10/08/20 8:35:00 EDT, Height, kg, 10/08/20 8:35:00 EDT, Dosing Weight Start Date: 10/31/20 Status: Ordered Start: 10-05-2017 LEVOTHYROXINE SODIUM 88 MCG TABS once daily LEVOTHYROXINE SODIUM [id number] Scot D Estes DO tiZANidine 4 mg oral tablet (2 sources) Central alpha-2 Adrenergic Agonist Start: 03-28-2024 End: 04-04-2024 tiZANidine 4 mg oral tablet Dose : 4 mg = 1 tab(s), Oral, q6h, PRN as needed for muscle spasm, # 30 tab(s), 0 Refill(s), Pharmacy: [facility], Thoracic myofascial strain Radicular pain in right arm, 157, cm, 02/16/24 9:20:00 EDT, Height, kg, 02/16/24 9:20:00 EDT, Dosing Weight Start Date: 03/28/24 Stop Date: 04/04/24 Status: Ordered Start: 05-11-2023 End: 05-25-2023 tiZANidine 4 mg oral tablet Dose : 4 mg = 1 tab(s), Oral, qHS, PRN as needed for muscle spasm, # 14 tab(s), 0 Refill(s), Pharmacy: [facility], Thoracic myofascial strain Radicular pain in [...] tab(s), 0 Refill(s), 07/07/21 13:41:00 EST, Pharmacy: [facility], Acute right flank pain Hematuria, 159, cm, 07/02/21 13:11:00 EST, Height, 64.6, kg, 07/02/21 13:11:... Start Date: 07/02/21 Stop Date: 07/07/21 Status: Ordered traZODone hydrochloride 50 mg oral tablet (3 sources) Serotonin Reuptake Inhibitor Start: 02-16-2024 End: 08-14-2024 traZODone 50 mg oral tablet Dose : 50 mg = 1 tab(s), Oral, qHS, # 30 tab(s), 5 Refill(s), Pharmacy: [facility], Insomnia, 157, cm, 02/16/24 9:20:00 EDT, Height, kg, 02/16/24 9:20:00 EDT, Dosing Weight Start Date: 02/16/24 Stop Date: 08/14/24 Status: Ordered Start: 11-22-2023 End: 12-22-2023 traZODone 50 mg oral tablet Dose : 50 mg = 1 tab(s), Oral, qHS, # 30 tab(s), 0 Refill(s), Pharmacy: [facility] #30, Insomnia, 157, cm, 11/22/23 7:28:00 EDT, [...] 0 Refill(s) Start Date: 04/11/19 Status: Ordered Vitamin D3-Vitamin K2 (Mk4) (1 source) Start: 03-01-2023 take 1 tablet by mouth once daily Vitamin D3-Vitamin K2 (Mk4) Active 1 TABLET PO DAILY March 01, 2023 12:00am D3 2,000 IU + K2 100mcg Zinc (2 sources) Start: 07-02-2021 take 1 mg by mouth once daily Zinc mg =, Oral, qDay, 0 Refill(s) Start Date: 07/02/21 Status: Ordered Zinc Amino Acid Chelate (1 source) Start: 03-01-2023 take 50 mg by mouth once daily Zinc Amino Acid Chelate Active 50 MG PO DAILY March 01, 2023 12:00am Completed/Discontinued Medications Medication Drug Class(es) Dates Sig (Normalized) Sig (Original) acetaminophen 325 mg / HYDROcodone bitartrate 5 mg oral tablet (8 sources) Opioid Agonist Start: 03-27-2024 End: 04-28-2024 Hydrocodone-Acetami nophen 5-325 mg tablet Discontinued 1 {tbl} PO EVERY 6 HOURS NEEDED as needed for Pain 10 3 0 March 27, 2024 April 28, 2024 10:42am Chest pain Chronic lymphocytic leukemia Splenomegaly Chest pain, unspecified Chronic lymphocytic leukemia of B-cell type not having achieved remission Splenomegaly, not elsewhere classified Start: 10-15-2023 take 1 tablet by zack every six hours as needed for pain acetaminophen-hydrocodone 325 mg-5 mg or al tablet TAKE 1 TABLET BY MOUTH EVERY 6 HOURS NEEDED FOR SEVERE PAIN FOR 3 DAYS Start Date: 10/15/23 Status: Ordered Start: 09-21-2023 End: 09-24-2023 take 1 tablet by mouth every six hours as needed for pain [place] 325- 5 mg oral tablet Dose = 1 tab(s), Oral, q6h, PRN As needed for severe pain, X 3 day(s), # 12 tab(s), 0 Refill(s), Back pain, 59.7 Start Date: 09/21/23 Stop Date: 09/24/23 Status: Ordered aspirin 81 mg delayed release oral tablet (20 sources) Platelet Aggregation Inhibitor, Nonsteroidal Anti-inflammatory Drug Start: 08-14-2022 End: 10-18-2023 take 1 tablet by mouth once daily Aspirin 81 mg tablet,delayed release (DR/EC) Discontinued 81 mg PO DAILY August 14, 2022 1:00am October 18, 2023 9:36am Start: 10-08-2020 End: 10-03-2021 aspirin 81 mg [...] Date: 10/08/20 Stop Date: 10/03/21 Status: Ordered chromium picolinate 0.2 mg oral tablet (20 sources) Start: 08-14-2022 End: 01-03-2024 take 1 tablet by mouth once daily Chromium Picolinate 200 mcg tablet Discontinued 200 ug PO DAILY August 14, 2022 1:00am January 03, 2024 2:50pm Start: 04-11-2019 chromium picol inate 200 mcg oral tablet Dose : 200 mcg = 1 tab(s), Oral, Daily, # 100 tab(s), 0 Refill(s) Start Date: 04/11/19 Status: Ordered dicyclomine hydrochloride 10 mg oral capsule (3 sources) Anticholinergic Start: 10-15-2023 End: 10-29-2023 dicyclomine 10 mg oral capsule Dose : 10 mg = 1 cap(s), Oral, QID, # 56 cap(s), 0 Refill(s), Pharmacy: [id number], Abdominal bloating with cramps Constipation, 159, cm, 10/15/23 11:22:00 EDT, Height, kg, 10/15/23 11:13:00 EDT, Dosing Weight Start Date: 10/15/23 Stop Date: 10/29/23 Status: Ordered Start: 10-04-2023 End: 10-11-2023 dicyclomine 20 mg oral table t Dose : 20 mg = 1 tab(s), Oral, TID, # 21 tab(s), 0 Refill(s) Start Date: 10/04/23 Stop Date: 10/11/23 Status: Ordered disability placard (5 sources) Start: 01-03-2024 End: 01-05-2025 disability placard Discontin ued 0 .Route .MEDSUPPLY 1 0 January 03, 2024 12:00am January 04, 2025 12:00am January 05, 2025 12:10am Chronic lymphocytic leukemia Chronic lymphocytic leukemia of B-cell type not having achieved remission . Start: 01-03-2024 disability sharon card Active 0 .Route .MEDSUPPLY 1 January 03, 2024 12:00am January 04, 2025 12:00am . Start: 01-03-2024 disability sharon card Active 0 .Route .MEDSUPPLY 1 January 02, 2024 11:00pm January 03, 2025 11:00pm . Arnold 2-Ycs-Gav-Fish Oil (6 sources) Start: 03-01-2023 End: 10-18-2023 Arnold 8-Pwf-Yud-Fish Oil (Fi sh Oil) 300-1,000 mg capsule Discontinued 1 NMA PO DAILY March 01, 2023 12:00am October 18, 2023 9:38am Start: 03-01-2023 End: 10-18-2023 Arnold 4-Jqs-Bjk-Fish Oil (Fi sh Oil) 300-1,000 mg capsule Discontinued 1 NMA PO DAILY February 28, 2023 11:00pm October 18, 2023 8:38am Start: 03-01-2023 take 300-1000 mg by mouth once daily Arnold 5-Psw-Qxu-Fish Oil (Fish Oil) 300-1,000 mg capsule Active 1 CAP PO DAILY March 01, 2023 12:00am docusate sodium 100 mg oral capsule (11 sources) Start: 08-11-2024 End: 08-15-2024 take 1 capsule by mouth twice daily as needed for constipation Docusate Sodium 100 mg capsule Discontinued 100 mg PO TWICE DAILY NEEDED as needed for constipation August 11, 2024 1:00am August 15, 2024 10:12am Start: 02-16-2024 End: 04-03-2024 take 1 capsule by mouth twice daily Docusate Sodium (Colace) 100 mg capsule Discontinued 100 mg PO TWICE A DAY March 22, 2024 12:00am April 03, 2024 11:32am HYDROCHLOROT (1 source) Start: 10-05-2017 take 25 mg by mouth once daily HYDROCHLOROT 25mg by mouth once daily HYDROCHLOROT Scot D Estes DO linaclotide 0.29 mg oral capsule (12 sources) Guanylate Cyclase-C Agonist Start: 09-14-2024 End: 01-01-2025 take 1 capsule by mouth once daily 30 minutes before breakfast Linaclotide (Linzess) 290 mcg capsule Discontinued 290 ug PO EVERY MORNING 30 0 September 14, 2024 12:00am January 01, 2025 9:27am take one capsule daily 30 minutes before breakfast Start: 08-24-2024 Linzess 145 mc g oral capsule Dose : 145 mcg = 1 cap(s), Oral, qDay, # 30 cap(s), 0 Refill(s) Start Date: 08/24/24 Status: Ordered Quantity: 30.0 Unit: cap(s) Repeat number: 1 Start: 08-15-2024 End: 01-01-2025 take 1 capsule by mouth once daily in the morning Linaclotide (Linzess) 145 mcg capsule Discontinued 290 ug PO EVERY MORNING September 14, 2024 10:07am January 01, 2025 9:26am pantoprazole 40 mg delayed release oral tablet (9 sources) Proton Pump Inhibitor Start: 05-10-2023 End: 10-18-2023 take 2 tablets by mouth once daily Pantoprazole 40 mg tablet,delayed release (DR/EC) Discontinued 80 mg PO DAILY May 10, 2023 1:00am October 18, 2023 9:39am Start: 05-10-2023 take 80 mg by mouth once daily Pantoprazole Active 80 MG PO DAILY May 10, 2023 1:00am Start: 05-08-2023 Protonix 40 mg oral enteric coated tablet Dose : 80 mg = 2 tab(s), Oral, qDay, # 30 tab(s), 0 Refill(s) Start Date: 05/08/23 Status: Ordered polyethylene glycol 3350 60763 mg powder for oral solution (6 sources) Osmotic Laxative Start: 02-23-2023 End: 04-03-2024 Polyethylene Glycol 3350 (Miralax) 17 gram/dose powder Discontinued 4 g PO DAILY February 23, 2023 12:00am April 03, 2024 11:33am potassium (1 source) Start: 10-05-2017 POTASSIUM TABS once daily POTASSIUM TABS 29141677315 Tacos Estes DO psyllium 3400 mg powder for oral suspension (6 sources) Start: 02-23-2023 End: 04-03-2024 Psyllium Husk (Metamucil) 3.4 gram/5.4 gram powder Discontinued 1 tbsp PO DAILY February 23, 2023 12:00am April 03, 2024 11:33am mix into at least 8 oz of water or juice before administering Start: 02-23-2023 Psyllium Husk (Metamucil) 3.4 gram/5.4 gram powder Active 1 tbsp PO DAILY February 23, 2023 12:00am mix into at least 8 oz of water or juice before administering raloxifene hydrochloride 60 mg oral tablet (1 source) Estrogen Agonist/Antagonist Start: 10-05-2017 EVISTA 60 MG TABS once every other daily RALOXIFENE HCL [id number] Tacos Estes DO vitamin e 180 mg oral tablet (6 sources) Start: 03-01-2023 End: 01-03-2024 take 1 tablet by mouth every other day Vitamin E Succinate 268 mg (400 unit) tablet Discontinued 268 mg PO every other day March 01, 2023 12:00am January 03, 2024 2:50pm zanubrutinib 80 mg oral capsule (20 sources) Start: 09-11-2024 End: 09-14-2024 Zanubrutinib (Zanubrutinib 80 Mg Capsule) 80 mg capsule Discontinued 160 mg PO TWICE A DAY September 11, 2024 12:00am September 14, 2024 10:10am Start: 05-11-2023 End: 09-04-2024 take 1 capsule by mouth twice daily Zanubrutinib 80 mg capsule Discontinued 160 mg PO TWICE A DAY 120 30 6 April 06, 2024 12:00am September 04, 2024 2:14pm Zinc Amino Acid Chelate 50 mg tablet (5 sources) Start: 03-01-2023 End: 03-27-2024 take 1 tablet by mouth once daily Zinc Amino Acid Chelate 50 mg tablet Discontinued 50 mg PO DAILY March 01, 2023 12:00am March 27, 2024 8:45pm Start: 03-01-2023 End: 03-27-2024 take 1 tablet by mouth once daily Zinc Amino Acid Chelate 50 mg tablet Discontinued 50 mg PO DAILY February 28, 2023 11:00pm March 27, 2024 7:45pm Problems Active Problems Problem Classification Problem Date Documented Da te Episodic/Chronic Administrative/social admission (6 sources) Patient encounter status; Translations: [Counseling, unspecified] 03-01-2023 Episodic Anxiety disorders (2 sources) Anxiety 08-24-2024 Chronic Conditions associated with dizziness or vertigo (20 sources) Vertigo; Translations: [Dizziness and giddiness] 04-30-2021 Episodic Deficiency and other anemia (12 sources) Anemia; Translations: [Anemia, unspecified] 03-09-2023 Episodic Diseases of white blood cells (2 sources) Lymphocytosis; Translations: [Lymphocytosis (symptomatic)] 08-18-2022 Chronic Disorders of lipid metabolism (20 sources) Hyperlipidemia; Translations: [Hyperlipidemia, unspecified] 10-10-2019 Chronic Esophageal disorders (13 sources) Gastroesophageal reflux disease 05-11-2023 Chronic Essential hypertension (20 sources) Hypertensive disorder; Translations: [Essential (primary) hypertension] Onset: 4 10-10-2019 Chronic Fracture of upper limb (2 sources) Closed fracture of carpal bone; Translations: [Fracture of unspecified carpal bone, left wrist, initial encounter for closed fracture] Onset: Episodic Genitourinary symptoms and ill-defined conditions (20 sources) Female stress incontinence 03-21-2019 Chronic Genitourinary symptoms and ill-defined conditions (20 sources) Increased frequency of urination; Translations: [Blood in urine] Onset: 4 10-10-2019 Episodic Heart valve disorders (20 sources) Mitral valve prolapse; Translations: [Nonrheumatic mitral (valve) prolapse] 03-21-2019 Chronic Leukemias (20 sources) Chronic lymphoid leukemia, disease; Translations: [Chronic lymphocytic leukemia of B-cell type not having achieved remission] Onset: 5 10-23-2022 Chronic Mood disorders (2 sources) Major depressive disorder 08-24-2024 Chronic Osteoarthritis (1 source) Primary osteoarthritis, right shoulder; Translations: [Primary osteoarthritis, right shoulder] Onset: 5 Chronic Osteoporosis (20 sources) Osteoporosis; Translations: [Age-related osteoporosis without current pathological fracture] 03-21-2019 Chronic Other connective tissue disease (20 sources) Cramp 10-29-2021 Episodic Other fractures (1 source) Collapse of vertebra; Translations: [Collapsed vertebra, not elsewhere classified, site unspecified, initial encounter for fracture] Onset: 4 Episodic Other fractures (6 sources) Compression fracture of lumbar spine; Translations: [Wedge compression fracture of unspecified lumbar vertebra, initial encounter for closed fracture] 10-05-2023 Episodic Other fractures (7 sources) Compression fracture of vertebral column 11-03-2023 Episodic Other fractures (3 sources) Fracture of lumbar spine 10-15-2023 Episodic Other fractures (2 sources) Collapsed vertebra, not elsewhere classified, lumbar region, subsequent encounter for fracture with routine healing; Translations: [Collapsed vertebra, not elsewhere classified, lumbar region, subsequent encounter for fracture with] Onset: 4 Episodic Other gastrointestinal disorders (2 sources) Irritable bowel syndrome 08-24-2024 Chronic Other gastrointestinal disorders (20 sources) Abdominal bloating; Translations: [Abdominal distension (gaseous)] 02-21-2021 Episodic Other gastrointestinal disorders (17 sources) Constipation; Translations: [Constipation, unspecified] 10-15-2023 Episodic Other gastrointestinal disorders (5 sources) Splenomegaly; Translations: [Splenomegaly, not elsewhere classified] 04-04-2024 Episodic Other gastrointestinal disorders (7 sources) Dysphagia; Translations: [Dysphagia, unspecified] 08-15-2024 Episodic Other inflammatory condition of skin (20 sources) Psoriasis; Translations: [Psoriasis, unspecified] 03-21-2019 Chronic Other injuries and conditions due to external causes (5 sources) Compression fracture ; Translations: [Fracture of unspecified bone, closed] 10-21-2023 Episodic Other nervous system disorders (7 sources) Metabolic encephalopathy; Translations: [Metabolic encephalopathy] 04-04-2024 Chronic Other nervous system disorders (1 source) Metabolic encephalopathy; Translations: [Metabolic encephalopathy] Onset: Chronic Other nervous system disorders (20 sources) Tingling of skin 07-07-2022 Episodic Other non-traumatic joint disorders (20 sources) Hip pain 04-30-2021 Episodic Other non-traumatic joint disorders (20 sources) Shoulder pain 03-21-2019 Episodic Other non-traumatic joint disorders (1 source) Pain in right shoulder; Translations: [Pain in right shoulder] Onset: Episodic Other screening for suspected conditions (not mental disorders or infectious disease) (20 sources) Viral screening status 05-06-2022 Episodic Other skin disorders (20 sources) Skin lesion 04-30-2020 Episodic Other skin disorders (20 sources) Eruption; Translations: [Rash and other nonspecific skin eruption] 10-29-2021 Episodic Other skin disorders (20 sources) Lesion of skin of face 03-10-2022 Episodic Other skin disorders (20 sources) Mass of neck 07-07-2022 Episodic Other skin disorders (2 sources) Rash and other nonspecific skin eruption; Translations: [Rash and other nonspecific skin eruption] 07-27-2023 Episodic Other upper respiratory disease (20 sources) Seasonal allergy 10-29-2021 Chronic Other upper respiratory infections (18 sources) Upper respiratory infection 08-05-2022 Episodic Residual codes; unclassified (20 sources) Needs influenza immunization 04-09-2020 Episodic Residual codes; unclassified (2 sources) Insomnia, unspecified; Translations: [Insomnia, unspecified] Onset: Episodic Residual codes; unclassified (4 sources) Insomnia 12-14-2023 Episodic Spondylosis; intervertebral disc disorders; other back problems (8 sources) Degeneration of cervical intervertebral disc; Translations: [Other cervical disc degeneration, unspecified cervical region] Onset: 8 10-05-2017 Chronic Thyroid disorders (20 sources) Hyperthyroidism; Translations: [Hypothyroidism] Onset: 5 03-21-2019 Chronic Unclassified (20 sources) Patient encounter status 04-09-2020 Unclassified (16 sources) Mental state finding 08-28-2022 Unclassified (13 sources) Strain of muscle at thorax level 05-11-2023 Unclassified (12 sources) Body mass index 20-24 - normal 08-03-2023 Unclassified (12 sources) Influenza vaccination declined 08-03-2023 Unclassified (12 sources) Never used tobacco 08-03-2023 Varicose veins of lower extremity (20 sources) Varicose veins of lower extremity 10-08-2020 Episodic Past or Other Problems Problem Classification Problem Date Documented Da te Episodic/Chronic Abdominal pain (20 sources) Right upper quadrant pain; Translations: [Tenderness of right lower quadrant of abdomen] Onset: 10-04-2023 02-21-2021 Episodic Deficiency and other anemia (4 sources) Anemia, unspecified; Translations: [Anemia, unspecified] Onset: 09-04-2024 06-29-2023 Episodic Deficiency and other anemia (1 source) Other specified anemias; Translations: [Other specified anemias] Onset: 05-29-2024 Episodic E Codes: Adverse effects of medical drugs (6 sources) Adverse reaction to drug; Translations: [Adverse effect of unspecified drugs, medicaments and biological substances, initial encounter] Onset: 04-03-2024 04-04-2024 Episodic Fever of unknown origin (2 sources) Fever, unspecified; Translations: [Fever, unspecified] Onset: 05-04-2023 Episodic Fluid and electrolyte disorders (20 sources) Acute hyponatremia; Translations: [Hypo-osmolality and hyponatremia] Onset: 04-03-2024 04-04-2024 Episodic Lymphadenitis (20 sources) Supraclavicular lymphadenopathy; Translations: [Lymphadenopathy] Onset: 03-23-2024 07-07-2022 Episodic Nausea and vomiting (6 sources) Nausea; Translations: [Nausea] Onset: 08-21-2024 08-11-2024 Episodic Nonspecific chest pain (20 sources) Chest pain; Translations: [Atypical chest pain] Onset: 05-08-2023 03-21-2019 Episodic Other gastrointestinal disorders (2 sources) Dysphagia, unspecified; Translations: [Dysphagia, unspecified] Onset: 10-04-2024 Episodic Other gastrointestinal disorders (1 source) Constipation, unspecified; Translations: [Constipation, unspecified] Onset: 09-26-2024 Episodic Spondylosis; intervertebral disc disorders; other back problems (20 sources) Spinal stenosis in cervical region; Translations: [Lumbago with sciatica] Onset: 10-05-2017 10-05-2017 Episodic Comment on above: PATIENT STATES LOTS OF PAIN FROM WAIST DOWN Unclassified (1 source) Problem Results Test Name Value Interpretation Reference Range Facility Fluoro Guided Needle Placeme nton 01-08-[address] [facility] Imaging Services [address] [place] [address] Fluoro Guided Needle Placement MR#: [id number] Acct: [id number] Name: BOB MCKENNA Rep #: [id number] : 1940 F 84 From: Michael dawkins MD PCP: Dr. Lizzette Apple, DO Status: DEP [facility] Study: Fluoro Guided Needle Placement Date of Exam: 0 01/08/25 Exam# [id number] Ordering Dr: Brien Ocampo MD PROCEDURE: FLUORO GUIDED NEEDLE PLACEMENT 01/08/2025 REASON FOR EXAM: RT INTRA ARTICULAR INJECTION TECHNIQUE: FLUORO GUIDED NEEDLE PLACEMENT. Radiation dose: 2.7 seconds of fluoroscopy. 0.21 mGy. 4 images were submitted. COMPARISON: None FINDINGS: Intraoperative fluoroscopic services provided for right shoulder injection. RAD/Fluoro Guided Needle Placement IMPRESSION: Intraoperative fluoroscopic services provided for right shoulder injection. Reading Location: [id number] CC: Dr. Brien Ocampo MD; Dr. Lizzette Apple DO Closer On: Signed [facility] MR/POSTOP.[facility] 01-08-2025 MR/POSTOP.[facility] Medical Records Department [address] [place] [address] Anesthesia Postop Eval I 01/08/25 1005 MR#: [id number] Acct: [id number] Name: BOB MCKENNA Rep #: [id number] : 1940 84 From: Neal Lopez CRNA PCP: Dr. Lizzette Apple, DO Status:REG [facility] Race: C Location: [place] [address] Anesthesia: Postop Eval I Current Vital Signs Temperature: 98.1 F Pulse Rate: 62 Blood Pressure: 136/56 Respiratory Rate: 16 Pulse Ox: 97 Oxygen Delivery Method: Room Air Assessment Airway patent: Yes Spontaneous unlabored respirations: Yes Mental status: Awake nausea: No Vomiting: No Anesthesia Complication: No Fluid Hydration Crystalloid volume administer (ml): 150 Total IV fluid infused: 150 Progress Note Anesthesia document: Postop Eval 1 completed: No 01/08/25 1006 Date Nael Lopez ANALYSIS EVALUATOR Cosigner Signature: Date CC: Signed [facility] MR/[id number] 01-08-2025 MR/POSTOPAN2 [facility] Medical Records Department [address] [place] [id number] Anesthesia Postop Eval II 01/08/25 1145 MR#: [id number] Acct: [id number] Name: BOB MCKENNA Rep #: [id number] : 1940 84 From: Jim Jimenez MD PCP: Dr. Lizzette Apple, DO Status:[facility] Y Race: C Location: [facility] Anesthesia Postop Eval I Sum Postop Eval Completion status Anesthesia document: Postop Eval 1 completed: No Anesthesia Postop Eval I Summary Anesthesia Postop Eval I Summary: Anesthesia Postop Eval I: Assessment Summary Airway patent Yes 01/08/25 10:06 ANALYSIS [email or web address] Spontaneous unlabored Yes 01/08/25 10:06 ANALYSIS EVALUATOR.ACAR respirations Mental status Awake 01/08/25 10:06 ANALYSIS [email or web address].ACAR nausea No 01/08/25 10:06 ANALYSIS EVALUATOR.ACAR Vomiting No 01/08/25 10:06 ANALYSIS EVALUATOR.ACAR Anesthesia Postop Eval I: Fluid Summary Crystalloid volume administer 150 01/08/25 10:06 ANALYSIS EVALUATOR.ACAR (ml) Colloids volume administered ( ml) Blood Product volume administered (ml) Total IV fluid infused 150 01/08/25 10:06 ANALYSIS EVALUATOR.ACAR Anesthesia Postop Eval I: Summary Notes Anesthesia Complication No 01/08/25 10:06 ANALYSIS EVALUATOR.ACAR Anesthesia Complication Comment: Post-operative progress note Anesthesia: Postop Eval II Evaluation Mental status: Awake Pain Level: 2 nausea: No Vomiting: No 01/08/25 1145 Date Jim Toth Signature: Date CC: Signed [facility] Operative Reporton 5 Operative Report [facility] Medical Records Department [address] [address] Operative Report 01/08/25 0958 MR#: [id number] Acct: [id number] Name: BOB MCKENNA Rep #: [id number] : 1940 84 From: Brien Ocampo MD PCP: Dr. Lizzette Apple, DO Status:[facility] Location: [place] [address] Operative Report (Standard) Operative Information Date of Procedure: 01/08/25 Pre-Operative Diagnosis: Osteoarthritis of the right shoulder Post-Operative Diagnosis: Osteoarthritis of the right shoulder Surgery/Procedure Performed: Right shoulder intra-articular, subacromial steroid injection under fluoroscopic guidance well drill operator helper cable tool: No Type of Anesthesia: Local MAC RN Documented Start/Stop Times: Operation Date: 01/08/25 10:10 Case Time Into Pre-Op 01/08/25 08:57 Out of Pre-Op 01/08/25 09:41 Anesthesia Start 01/08/25 09:50 Into Room 01/08/25 09:50 Procedure Start 01/08/25 09:56 Procedure End 01/08/25 09:58 Procedure Start Time: 09:59 Procedure Stop Time: 09:59 Select all DRAINS/GRAFTS/IMPLANTS that apply: None Estimated Blood Loss: 0 Specimen collected: No Description of surgery: PREOPERATIVE DIAGNOSIS: Osteoarthritis of the right shoulder. POSTOPERATIVE DIAGNOSIS: Osteoarthritis of the right shoulder. ANESTHESIA: MAC. BLOOD LOSS: Minimal. COMPLICATIONS: None. DESCRIPTION OF PROCEDURE: History and physical of today was reviewed. Risks and benefits of the procedure were explained. The patient understood and agreed to proceed. Informed consent was obtained. IV inserted per routine protocol. The patient was taken to the operating room and placed in the supine position. The right shoulder area was prepped and draped in a sterile fashion using iodine x3. Under fluoroscopic guidance on AP view, the right shoulder joint was visualized. The skin and subcutaneous tissue was anesthetized with approximately 1 mL of 1% lidocaine using a 25- gauge regular needle at the anterior shoulder joint area. Under direct visualization with fluoroscopy on AP view, using a 22-gauge 3-1/2-inch spinal needle, the needle was advanced via the skin directed towards the intraarticular position at the supraspinatus level and subacromial level. Once the tip of the needle was at the vicinity of the shoulder joint, after negative aspiration for blood, positive aspiration for synovial fluid, a total of 3 mL of contrast was injected to confirm correct placement of the needle as well as anterior and posterior spread of the contrast at the shoulder joint. Cephalocaudal spread as well was visualized through the arthrogram. After confirmation on AP as well as oblique view and repeated negative aspiration for blood, a total of 5 mL of preservative-free 0.25% Marcaine with 40 mg of Depo-Medrol was injected easily. The needle was then removed intact. The patient experienced no sign or symptoms of intravascular injection. The patient experienced no paresthesia. The procedure was completed without any apparent difficulty or any complications. The patient appeared to tolerate it well. Assessment and plan: This is an 84-year-old female with osteoarthritis of the right shoulder status post right shoulder intra-articular, subacromial steroid injection under fluoroscopic guidance, patient will continue her current medications, patient will follow-up in approximately 2 weeks for reevaluation. Surgical Findings: 0 Complications Complications: No Admit VTE Documentation VTE Present on Admission: No VTE Mechan Device Prophylaxis: None VTE Pharm Prophylaxis ordered?: No 01/08/25 1001 Cosigner Signature (if applicable): CC: Dr. Brien Ocampo MD; Dr. Lizzette Apple DO Signed [facility] XR ELBOW MINIMUM 3 VIEWS LEF Ton 11-09-2024 XR ELBOW MINIMUM 3 VIEWS LEFT ORIGINAL EXAMINATION: 3 XRAY VIEWS OF THE LEFT ELBOW 11/09/2024 11:16 am COMPARISON: None. HISTORY: ORDERING SYSTEM PROVIDED HISTORY: Reason for Exam: lt elbow pain s/p fall today pain FINDINGS: Bone demineralization. Enthesopathy at the lateral epicondyle. No acute fracture or dislocation. No suspicious osseous lesions. Well corticated 3 mm ossicle at the lateral joint space which may be related to an intra-articular body. No joint effusion. Lateral radiograph is rotated and suboptimal in positioning with mild motion. IMPRESSION: No definite fracture or dislocation or elbow joint effusion. Lateral radiograph is suboptimal due to rotation and slight motion. If further concern persists for acute fracture recommend repeat lateral radiograph. Interpreted by: Elsa Myers Preliminary Report By: Elsa Myers Electronically signed By Elsa Myers Dictated Date: 11/09/2024 11:19:06 AM Prelim Date: 11/09/2024 12:04:02 PM Sign Date: 11/09/2024 12:04:02 PM Ordering Provider: RAMON [facility] XR HAND AND WRIST 6 VIEWS LE [facility] 11-09-2024 XR HAND AND WRIST 6 VIEWS LEFT ORIGINAL EXAMINATION: 6 XRAY VIEWS OF THE LEFT HAND 11/09/2024 11:17 am COMPARISON: None. HISTORY: ORDERING SYSTEM PROVIDED HISTORY: Reason for Exam: lt wrist pain s/p fall today pain FINDINGS: Bone demineralization. There is an acute comminuted impacted intra-articular distal radial fracture and ulnar styloid fracture. There is mild dorsal tilting of the radius. Soft tissue swelling surrounding the wrist. Multifocal degenerative changes of the hand and carpus most pronounced at the 1st CMC joint. There is a well-defined thin walled lucent 4 mm lesion within the 1st proximal phalanx that is most favored to reflect a small enchondroma. IMPRESSION: Acute comminuted impacted intra-articular dorsally angulated distal radial fracture and ulnar styloid fracture. Surrounding soft tissue swelling. Interpreted by: Elsa Myers Preliminary Report By: Elsa Myers Electronically signed By Elsa Myers Dictated Date: 11/09/2024 11:26:01 AM Prelim Date: 11/09/2024 11:28:44 AM Sign Date: 11/09/2024 11:28:44 AM Ordering Provider: RAMON [facility] XR SHOULDER MINIMUM 2 VIEWS LEFTon 11-09-2024 XR SHOULDER MINIMUM 2 VIEWS LEFT ORIGINAL EXAMINATION: 3 XRAY VIEWS OF THE LEFT SHOULDER 11/09/2024 11:16 am COMPARISON: 02/15/2018 HISTORY: ORDERING SYSTEM PROVIDED HISTORY: Reason for Exam: lt shoulder pain s/p fall today pain FINDINGS: Bone demineralization. High-riding humeral head with associated secondary degenerative changes across the acromial humeral joint space. No acute fracture or suspicious osseous lesion. IMPRESSION: Findings most consistent with chronic rotator cuff tearing with secondary degenerative change. No acute fracture. Interpreted by: Elsa Myers Preliminary Report By: Elsa Myers Electronically signed By Elsa Myers Dictated Date: 11/09/2024 11:24:33 AM Prelim Date: 11/09/2024 11:25:51 AM Sign Date: 11/09/2024 11:25:51 AM Ordering Provider: RAMON [facility] Shoulder min 2 Viewson 11-06 Shoulder min 2 Views [facility] Imaging Services [address] [place] [id number] Shoulder min 2 Views MR#: [id number] Acct: [id number] Name: BOB MCKENNA Rep #: [id number] : 1940 F 84 From: Juan David Henry PCP: Dr. Lizzette Apple DO Status: REG CLI Study: Shoulder min 2 Views Date of Exam: 11/06/24 Exam# [id number] Ordering Dr: Katie Suarez PROCEDURE: SHOULDER MIN 2 VIEWS 11/06/2024 REASON FOR EXAM: RIGHT SHOULDER PAIN TECHNIQUE: Four views of the right shoulder COMPARISON: None RAD/Shoulder min 2 Views IMPRESSION: [id number] degenerative changes of the right shoulder. No acute fracture or dislocations. No acute soft tissue abnormalities. Reading Location: [id number] CC: Katie Suarez; Dr. Lizzette Apple DO Closer On: Signed [facility] .Auto Diffon 10-05-2024 Basophil, Absolute 0.0 10 3/mcL Normal 0.0-0.3 [facility] Comment on above: Performed By: #### G FR, ANEU, TSHR, CMP, ADIFF, CBC #### [address] [address] Basophils/100 WBC (Bld) 0.6 % Normal 0.0-2.5 [facility] Comment on above: Performed By: #### G FR, ANEU, TSHR, CMP, ADIFF, CBC #### [address] [address] Eosinophil, Absolute 0.1 10 3/mcL Normal 0.0-0.7 [facility] Comment on above: Performed By: #### G FR, ANEU, TSHR, CMP, ADIFF, CBC #### [address] [address] Eosinophils/100 WBC (Bld) 1.2 % Normal 0.0-6.0 [facility] Comment on above: Performed By: #### G FR, ANEU, TSHR, CMP, ADIFF, CBC #### [address] [address] Lymphocyte, Absolute 1.2 10 3/mcL Normal 0.9-4.3 [facility] Comment on above: Performed By: #### G FR, ANEU, TSHR, CMP, ADIFF, CBC #### [address] [address] Lymphocytes/100 WBC (Bld) 23.3 % Normal 20.0-40.0 [facility] Comment on above: Performed By: #### G FR, ANEU, TSHR, CMP, ADIFF, CBC #### [address] [address] Monocyte, Absolute 0.8 10 3/mcL Normal 0.1-1.4 [facility] Comment on above: Performed By: #### G FR, ANEU, TSHR, CMP, ADIFF, CBC #### [address] [address] Monocytes/100 WBC (Bld) 15.5 % High 2.0-13.0 [facility] Comment on above: Performed By: #### G FR, ANEU, TSHR, CMP, ADIFF, CBC #### [address] [address] Neutrophils/100 WBC (Bld) 59.4 % Normal 50.0-75.0 [facility] Comment on above: Performed By: #### G FR, ANEU, TSHR, CMP, ADIFF, CBC #### [address] [address] .GFRon 10-05-2024 Estimated Glomerular Filtration Rate 92 ml/min/1.73sqm Normal [facility] Comment on above: Result Comment: Stages of Chronic Kidney Disease (CKD) Stage Description eGFR(ml/min/1.73 sq.m.) CKD 1 Normal kidney function or >=90 normal kindney function with possible kidney damage (ex. Proteinuria) CKD 2 Kidney damage with mild loss 60-89 of kidney function CKD 3a Mild to moderate loss of kidney 45-59 function CKD 3b Moderate to severe loss of 30-44 of kindey function CKD 4 Severe loss of kidney function 15-29 CKD 5 Kidney failure <15 Note: (go live 2024) the eGFR calculation was updated to the 2020 CKD-EPI creatinine equation without a race factor to calculate the eGFR results. Performed By: #### G FR, ANEU, TSHR, CMP, ADIFF, CBC #### [address] [address] .NEUABSon 10-05-2024 Neutrophil, Absolute 3.1 10 3/mcL Normal 2.3-8.1 [facility] Comment on above: Performed By: #### G FR, ANEU, TSHR, CMP, ADIFF, CBC #### [address] [address] CBCon 10-05-2024 Erythrocyte distribution width (RBC) [Ratio] 15.0 % Normal 11.5-15.5 [facility] Comment on above: Performed By: #### G FR, ANEU, TSHR, CMP, ADIFF, CBC #### [place] [place], [place] [address] Hematocrit (Bld) [Volume fraction] 37.7 % Normal 34.0-46.0 [facility] Comment on above: Performed By: #### G FR, ANEU, TSHR, CMP, ADIFF, CBC #### [address] [address] Hgb 12.8 G/dL Normal 12.0-16.0 [facility] Comment on above: Performed By: #### G FR, ANEU, TSHR, CMP, ADIFF, CBC #### [place] [address] MCH (RBC) [Entitic mass] 30.3 pg Normal 27.0-33.0 [facility] Comment on above: Performed By: #### G FR, ANEU, TSHR, CMP, ADIFF, CBC #### [address] [address] MCHC 33.9 G/dL Normal 32.0-36.0 [facility] Comment on above: Performed By: #### G FR, ANEU, TSHR, CMP, ADIFF, CBC #### [address] [address] MCV (RBC) [Entitic vol] 89.4 fL Normal 80.0-99.0 [facility] Comment on above: Performed By: #### G FR, ANEU, TSHR, CMP, ADIFF, CBC #### [address] [address] Platelet 286 10 3/mcL Normal 150-450 [facility] Comment on above: Performed By: #### G FR, ANEU, TSHR, CMP, ADIFF, CBC #### [address] [address] Platelet mean volume (Bld) [Entitic vol] 7.3 fL Normal 6.6-10.5 [facility] Comment on above: Performed By: #### G FR, ANEU, TSHR, CMP, ADIFF, CBC #### [address] [address] RBC 4.22 10 6/mcL Normal 4.10-5.30 [facility] Comment on above: Performed By: #### G FR, ANEU, TSHR, CMP, ADIFF, CBC #### [address] [address] WBC 5.2 10 3/mcL Normal 4.5-10.8 [facility] Comment on above: Performed By: #### G FR, ANEU, TSHR, CMP, ADIFF, CBC #### [address] [address] CMPon 10-05-2024 Albumin Level 4.0 G/dL Normal 3.4-4.8 [facility] Comment on above: Performed By: #### G FR, ANEU, TSHR, CMP, ADIFF, CBC #### [address] [address] Albumin/Globulin [Mass ratio] 1.4 {ratio} Normal 1.1-2.5 [facility] Comment on above: Performed By: #### G FR, ANEU, TSHR, CMP, ADIFF, CBC #### [address] [address] ALP [Catalytic activity/Vol] 79 U/L Normal 40-135 [facility] Comment on above: Performed By: #### G FR, ANEU, TSHR, CMP, ADIFF, CBC #### [address] [address] ALT [Catalytic activity/Vol] 26 U/L Normal 14-59 [facility] Comment on above: Performed By: #### G FR, ANEU, TSHR, CMP, ADIFF, CBC #### [address] [address] AST [Catalytic activity/Vol] 20 U/L Normal 10-40 [facility] Comment on above: Performed By: #### G FR, ANEU, TSHR, CMP, ADIFF, CBC #### [address] [address] Bili Total 0.4 mg/dL Normal 0.2-1.0 [facility] Comment on above: Result Comment: Use of this assay is not recommended for patients undergoing treatment with eltrombopag due to the potential for falsely elevated results. Performed By: #### G FR, ANEU, TSHR, CMP, ADIFF, CBC #### [address] [address] BUN/Creatinine Ratio 18 ratio Normal 7-27 [facility] Comment on above: Performed By: #### G FR, ANEU, TSHR, CMP, ADIFF, CBC #### [address] [address] Calcium [Mass/Vol] 9.2 mg/dL Normal 8.4-10.2 [facility] Comment on above: Performed By: #### G FR, ANEU, TSHR, CMP, ADIFF, CBC #### [address] [address] Chloride [Moles/Vol] 98 mmol/L Normal 98-107 [facility] Comment on above: Performed By: #### G FR, ANEU, TSHR, CMP, ADIFF, CBC #### [address] [address] CO2 [Moles/Vol] 31 mmol/L Normal 23-31 [facility] Comment on above: Performed By: #### G FR, ANEU, TSHR, CMP, ADIFF, CBC #### [address] [address] Creatinine [Mass/Vol] 0.50 mg/dL Low 0.51-0.95 [facility] Comment on above: Performed By: #### G FR, ANEU, TSHR, CMP, ADIFF, CBC #### [address] [address] Electrolyte Balance 6.0 mEq/L Normal 4.0-15.0 [facility] Comment on above: Performed By: #### G FR, ANEU, TSHR, CMP, ADIFF, CBC #### [address] [address] Globulin 2.8 G/dL Normal 2.7-4.4 [facility] Comment on above: Performed By: #### G FR, ANEU, TSHR, CMP, ADIFF, CBC #### [address] [address] Glucose [Mass/Vol] 63 mg/dL Low 83-110 [facility] Comment on above: Performed By: #### G FR, ANEU, TSHR, CMP, ADIFF, CBC #### [address] [address] Potassium [Moles/Vol] 4.0 mmol/L Normal 3.5-5.1 [facility] Comment on above: Performed By: #### G FR, ANEU, TSHR, CMP, ADIFF, CBC #### [address] [address] Sodium [Moles/Vol] 135 mmol/L Low 136-145 [facility] Comment on above: Performed By: #### G FR, ANEU, TSHR, CMP, ADIFF, CBC #### [address] [address] Total Protein 6.8 G/dL Normal 6.4-8.2 [facility] Comment on above: Performed By: #### G FR, ANEU, TSHR, CMP, ADIFF, CBC #### [address] [address] Urea nitrogen [Mass/Vol] 9 mg/dL Normal 7-18 [facility] Comment on above: Performed By: #### G FR, ANEU, TSHR, CMP, ADIFF, CBC #### [address] [address] LABORATORYOrdered By: SYSTEM SYSTEM on 10-05-2024 Albumin BCP dye [Mass/Vol] 4.0 G/dL Normal 3.4 - 4.8 G/dL AO ADM SS Albumin/Globulin [Mass ratio] 1.4 {ratio} Normal 1.1 - 2.5 ratio AO ADM SS ALP [Catalytic activity/Vol] 79 U/L Normal 40 - 135 U/L AO ADM SS ALT With P-5'-P [Catalytic activity/Vol] 26 U/L Normal 14 - 59 U/L AO ADM SS AST With P-5'-P [Catalytic activity/Vol] 20 U/L Normal 10 - 40 U/L AO ADM SS Basophils (Bld) [#/Vol] 0.0 103/mcL Normal 0.0 - 0.3 10^3/mcL AO Workflow SS Basophils/100 WBC (Bld) 0.6 % Normal 0.0 - 2.5 % AO Workflow SS Bilirubin [Mass/Vol] 0.4 mg/dL Normal 0.2 - 1 .0 mg/dL AO ADM SS Comment on above: Interpretive Data: U se of this assay is not recommended for patients undergoing treatment with eltrombopag due to the potential for falsely elevated results. Calcium [Mass/Vol] 9.2 mg/dL Normal 8.4 - 10. 2 mg/dL AO ADM SS Chloride [Moles/Vol] 98 mmol/L Normal 98 - 10 7 mmol/L AO ADM SS CO2 [Moles/Vol] 31 mmol/L Normal 23 - 31 mmol/L AO ADM SS Creatinine [Mass/Vol] 0.50 mg/dL Low 0.51 - 0.95 mg/dL AO ADM SS Electrolyte Balance 6.0 mEq/L Normal 4.0 - 15 .0 mEq/L AO ADM SS Eosinophil, Absolute 0.1 103/mcL Normal 0.0 - 0 .7 10^3/mcL AO Workflow SS Eosinophils/100 WBC (Bld) 1.2 % Normal 0.0 - 6.0 % AO Workflow SS Erythrocyte distribution width (RBC) [Ratio] 15.0 % Normal 11.5 - 15.5 % AO Workflow SS Estimated Glomerular Filtration Rate 92 ml/min/1.73sqm Invalid Interpretation Code AO Chemistry S Comment on above: Interpretive Data: Stages of Chronic Kidney Disease (CKD) Stage Description eGFR(ml/min/1.73 sq.m.) CKD 1 Normal kidney function or >=90 normal kindney function with possible kidney damage (ex. Proteinuria) CKD 2 Kidney damage with mild loss 60-89 of kidney function CKD 3a Mild to moderate loss of kidney 45-59 function CKD 3b Moderate to severe loss of 30-44 of kindey function CKD 4 Severe loss of kidney function 15-29 CKD 5 Kidney failure <15 Note: (go live 2024) the eGFR calculation was updated to the 2020 CKD-EPI creatinine equation without a race factor to calculate the eGFR results. Globulin 2.8 G/dL Normal 2.7 - 4.4 G/dL AO ADM SS Glucose [Mass/Vol] 63 mg/dL Low 83 - 110 mg/dL AO ADM SS Hematocrit (Bld) [Volume fraction] 37.7 % Normal 34.0 - 46.0 % AO Workflow SS Hemoglobin (Bld) [Mass/Vol] 12.8 G/dL Normal 12.0 - 16.0 G/dL AO Workflow SS Lymphocytes (Bld) [#/Vol] 1.2 103/mcL Normal 0.9 - 4.3 10^3/mcL AO Workflow SS Lymphocytes/100 WBC (Bld) 23.3 % Normal 20.0 - 40.0 % AO Workflow SS MCH (RBC) [Entitic mass] 30.3 pg Normal 27.0 - 33.0 pg AO Workflow SS MCHC 33.9 G/dL Normal 32.0 - 36.0 G/dL AO Workflow SS MCV (RBC) [Entitic vol] 89.4 fL Normal 80.0 - 99.0 fL AO Workflow SS Monocytes (Bld) [#/Vol] 0.8 103/mcL Normal 0.1 - 1.4 10^3/mcL AO Workflow SS Monocytes/100 WBC (Bld) 15.5 % High 2.0 - 13.0 % AO Workflow SS Neutrophils (Bld) [#/Vol] 3.1 103/mcL Normal 2.3 - 8.1 10^3/mcL AO Workflow SS Neutrophils/100 WBC (Bld) 59.4 % Normal 50.0 - 75.0 % AO Workflow SS Platelet mean volume (Bld) [Entitic vol] 7.3 fL Normal 6.6 - 10.5 fL AO Workflow SS Platelets (Bld) [#/Vol] 286 103/mcL Normal 150 - 450 10^3/mcL AO Workflow SS Potassium [Moles/Vol] 4.0 mmol/L Normal 3.5 - 5.1 mmol/L AO ADM SS Protein [Mass/Vol] 6.8 G/dL Normal 6.4 - 8.2 G/dL AO ADM SS RBC (Bld) [#/Vol] 4.22 106/mcL Normal 4.10 - 5.30 10^6/mcL AO Workflow SS Sodium [Moles/Vol] 135 mmol/L Low 136 - 145 mmol/L AO ADM SS TSH Qn 2.70 m[IU]/L Normal 0.36 - 3.74 mcIU/mL AO ADM SS Urea nitrogen [Mass/Vol] 9 mg/dL Normal 7 - 18 mg/dL AO ADM SS Urea nitrogen/Creatinine [Mass ratio] 18 ratio Normal 7 - 27 ratio AO ADM SS WBC (Bld) [#/Vol] 5.2 103/mcL Normal 4.5 - 10.8 10^3/mcL AO Workflow SS TSHRon 10-05-2024 TSH Qn 2.70 m[IU]/L Normal 0.36-3.74 [facility] Comment on above: Performed By: #### G FR, ANEU, TSHR, CMP, ADIFF, CBC #### [facility] [address] [place], [place] [address] Modified Barium Swallow Stud [facility] 10-02-[address] [facility] Speech Pathology [address] [place] [address] Modified Barium Swallow Study MR#: [id number] Acct: [id number] Name: BOB MCKENNA Jocelin Rep #: [id number] : 1940 84 From: Niki Montgomery M.A., [facility] [employer] Modified Barium Swallow Patient Information Study Date: 10/02/24 Study Time: 13:00 Direct Billable Minutes: 114 Total Minutes procedure reportin Diagnosis: Dysphagia R13.10 Referring Physician: Clarissa Aranda Reason for Referral: Pt attended office visit w/ gastroenterology 09/14/2024 for follow-up after evaluation in ED for N/V/D on 08/11/2024. During visit, the patietn complained of upper esophageal dysphagia w/ pills. Pt denied difficulty swallowing food/drink. Clarissa Aranda CNP referred her for modified barium swallow study and esophagram. Medical History: PMH: Dysphagia, Metabolic encephalopathy, Dehydration, Hypokalemia, Acute hyponatremia, Abdominal pain, Depression, Wears hearing aid and glasses, Uses walker, CLL, Anemia, Non-smoker, Supraclavicular mass, Supraclavicular lymphadenopathy, Vertigo, Hematuria, HLD, High BP, Hx of tonsillectomy. See EMR for full PMH. Current Diet Ordered: Regular textures / Thin liquids Dentition: Natural Teeth and Missing Teeth Mental Status: WNL Respiratory Status: Oxygenating on Room Air Penetration-Aspiration Scale Penetration-Aspiration Scale: OBJECTIVE ASSESSMENT OF SWALLOW FUNCTION (QUANTITATIVE ??? PER TRIAL): PENETRATION / ASPIRATION SCALE (SAENZ): 1 = does not enter airway 2 = enters airway/above vocal folds/ejected 3 = enters airway/above vocal folds/not ejected 4 = enters airway/contacts vocal folds/ejected 5 = enters airway/contacts vocal folds/not ejected 6 = enters airway/below vocal folds/ejected 7 = enters airway/below vocal folds/not ejected despite effort 8 = enters airway/below vocal folds/no effort VIDEOFLOROSCOPIC SCALE SCORE (SAENZ): Grade I = aspiration of material that has penetrated into the laryngeal vestibule, intact cough reflex Grade II = aspiration < 10 % of the bolus, intact cough reflex Grade III = aspiration of < 10 % of the bolus, reduced cough reflex or aspiration of > 10 % of the bolus, intact cough reflex Grade IV = aspiration of > 10 % of the bolus, reduced cough reflex Penetration-Aspiration Scale Score Thin Liquid via teaspoon: Result: 1= does not enter airway Thin Liquid via teaspoon Trial 2: Result: 2= enter airway/above vocal folds/ejected Thin Liquid via large single sip: cup: Result: 1= does not enter airway [place] Thick Liquid via large single sip: cup: Result: 1= does not enter airway Pudding via teaspoon: Result: 1= does not enter airway 1/2 Cookie: Result: 1= does not enter airway Thin Liquid via single sip: straw: Result: 1= does not enter airway Thin Liquid via sequential sips:straw: Result: 2= enter airway/above vocal folds/ejected Barium tablet with water: Comment: No PAS score due to no oral clearance. Barium tablet in applesauce: Result: 1= does not enter airway Oral Phase Labial Seal: Interlabial escape, no progression to anterior lip Tongue Control During Bolus Hold: Posterior escape of greater than half of bolus Bolus Preparation/Mastication: Timely and efficient chewing and mashing Bolus Transport/Lingual Motion: Delayed initiation of tongue motion Oral Residue: Residue collection on oral structures (pudding, which pt transported to vallecula, then swallowed w/ delayed second swallow) Pharyngeal Phase Initiation of Pharyngeal Swallow: Bolus head in pyriforms Soft Palate Elevation: Trace column of contrast/air between soft palate and pharyngeal wall Laryngeal Elevation: Comp. Superior move thyroid cart w/comp. apprx arytenoid cart-epig pet Anterior Hyoid Excursion: Partial anterior movement Epiglottic Movement: Complete inversion Laryngeal Vestibule Closure at Height of Swallow: Incomplete; narrow column of air/contrast in laryngeal vestibule (trace laryngeal penetration w/ complete ejection 2X) Pharyngeal Stripping Wave: Present - diminished Pharyngoesophageal Segment Opening: Parital distension and partial duration; parital obstruction of flow Tongue Base Retraction: Narrow column of contrast between tongue base post. pharyngeal wall Pharyngeal Residue: Collection of residue within or on pharyngeal structures Esophageal Phase Esophageal Clearance: Esophageal retention Diagnosis/Impression Diagnosis: Mild oropharyngeal dysphagia R13.12 Impression: Oral phase findings: -Decreased bolus control w/ posterior loss of >1/2 of thin liquids boluses to the pyriforms prior to swallow onset. -Delayed tongue motion for A-P transport. -Moderate oral residue w/ pudding w/ delayed, but independent second swallow to mostly clear. Pharyngeal phase findings: -Delayed swallow onset. -Mildly decreased TB retraction and pharyngeal stripping wave w/ trace-mild pharyngeal residue (more content not included)... Normal [facility] Swallowing Function w/Videoo n 10-02-2024 Swallowing Function w/Video [facility] Imaging Services [address] [place] [id number] Swallowing Function w/Video MR#: [id number] Acct: [id number] Name: BOB MCKENNA Jocelin Rep #: [id number] : 1940 F 84 From: Carlos Enrique Henry PCP: Dr. Lizzetet Apple, DO Status: [facility] CLI Study: Swallowing Function w/Video Date of Exam: 09/06 01/29 Exam# [id number] Ordering Dr: Clarissa Aranda CALIBRATION SPECIALIST- C EXAM: Modified barium swallow, performed in conjunction with the speech pathologist. CLINICAL HISTORY: Dysphagia. COMPARISON: None. TECHNIQUE: Modified barium swallow, performed in conjunction with the speech pathologist. Fluoroscopy time 160 seconds. Dose: 54.4 mGy-cm. FINDINGS: Anterior to the cervical esophagus, at the level of C7, is seen an area increasing barium deposition, concerning for small diverticulum or anterior ulceration. Incidental note is made of bilateral carotid artery calcification. No laryngeal penetration or aspiration was seen RAD/Swallowing Function w/Video IMPRESSION: 1. Anterior to the cervical esophagus, at the level of C7, is seen an area increasing barium deposition, concerning for small diverticulum or anterior ulceration. 2. No laryngeal penetration or aspiration was seen. 3. Please also see the speech pathologist's report for additional information. Reading Location: [facility] CC: CALIBRATION SPECIALIST-C Clarissa Aranda; Dr. Lizzette Apple DO Closer On: Signed Normal [facility] Abdomen Single Viewon 2024 [facility] [address] [place] [id number] Abdomen Single View MR#: [id number] Acct: [id number] Name: BOB MCKENNA Rep #: [id number] : 1940 F 84 From: Michael dawkins MD PCP: Dr. Lizzette Apple DO Status: REG CLI Study: Abdomen Single View Date of Exam: 09/20/24 Exam# [id number] Ordering Dr: Clarissa Aranda PROCEDURE: ABDOMEN SINGLE VIEW 09/20/2024 REASON FOR EXAM: DAY 5 SITZ MARKER TECHNIQUE: Single view abdomen. COMPARISON: Comparison is made with prior study dated September 18, 2024. FINDINGS: Bowel gas: Fecal material is seen in the colon. The Sitz marker is now within the rectum. Calcifications: Atherosclerotic vascular calcifications identified. Bones: Previous vertebroplasty of the L2 and L3 vertebrae. Degenerative changes of the lower lumbar spine and levoscoliosis. Other: RAD/Abdomen Single View IMPRESSION: The Sitz marker is now seen in the rectum. Reading Location: [facility] CC: CALIBRATION SPECIALISTDorian Aranda; Dr. Lizzette Apple DO Closer On: Signed Normal [facility] Abdomen Single Viewon 2024 Abdomen Single View [facility] Imaging Services [address] [place] [address] Abdomen Single View MR#: [id number] Acct: [id number] Name: BOB MCKENNA Rep #: [id number] : 1940 F 84 From: Ce Shepherd PCP: Dr. Lizzette Apple, Status: REG CLI Study: Abdomen Single View Date of Exam: 09/18/24 Exam# [id number] Ordering Dr: Clarissa Aranda PROCEDURE: ABDOMEN SINGLE VIEW 09/18/2024 REASON FOR EXAM: DAY 3 SITZ MARKER TECHNIQUE: Single view abdomen. COMPARISON: CT abdomen and pelvis dated 08/11/2024 FINDINGS: Bowel gas: Bowel gas pattern is normal. No evidence of bowel obstruction. Calcifications: Small pelvic calcifications are identified consistent with phleboliths. Atherosclerotic vascular calcifications identified. Bones: Diffuse osteopenia of the lower thorax is noted as well as the lumbar spine and bony pelvis. Degenerative changes of both hips are noted. There is a dextroscoliosis of the lower thoracic spine and upper lumbar spine and a levoscoliosis of the lower lumbar spine. There has been previous vertebroplasty at the L2 and L3 levels. Other: A 2 mm x 4 mm radiopaque Sitz marker is projected over the bowel in the location of the left SI joint. RAD/Abdomen Single View IMPRESSION: The sitz marker is projected over the bowel in the location of the left SI joint. Reading Location: [id number] CC: QUINCY Aranda; Dr. Lizzette Apple, Closer On: Signed Normal [facility] Gastroenterology Visit Repor ton 09-14-2024 Gastroenterology Visit Report [facility] Gastroenterology [address] [place] [address] OFFICE VISIT Date of Service: 09/14/24 MR#: [id number] Acct: [id number] Name: BOB MCKENNA Rep #: [id number] : 1940 Provider: QUINCY lewis Age/Sex: 84/F Location: BMS.BGI Status: Signed Intake Vital Signs 08/15/24 09:43 09/11/24 08:59 09/14/24 10:11 Height 5 ft 1 in 5 ft 1 in 5 ft 1 in Weight: 121 lb 4 oz BMI 22.8 BP 149/76 H Respiration 18 Pulse 67 Pulse Oximetry (%) 97 Oxygen Delivery Method room air Intake Visit Reasons: 1 M FU Chief Complaint: follow-up Conversion Worker Required: No Accompanied by: Daughter Is patient in pain?: No Allergies No Known Allergies Allergy (Verified 09/14/24 10:06) Medications ???Medication ???Instructions ???Recorded ???Confirmed ???Type ascorbic acid (vitamin C) 100 mg 100 mg PO DAILY 08/14/22 09/11/24 History tablet calcium carbonate 600 mg PO BID 08/14/22 09/11/24 Hi story cholecalciferol (vitamin D3) 10 10 mcg PO DAILY 08/14/22 09/11/24 History mcg (400 unit) capsule lutein 20 mg capsule 20 mg PO DAILY 08/14/22 09/11/24 H istory magnesium carbonate 1 cap PO DAILY 08/18/22 09/11/24 H istory mecobalamin (vitamin B12) 1,000 1,000 mcg PO Q OTHER DAY 03/01/23 09/11/24 History mcg lozenges levothyroxine 88 mcg capsule 88 mcg PO DAILY 06/01/23 09/14/24 History Disability Placard #1 ea 09/07/23 08/15/24 Rx disability placard #1 ea 01/03/24 08/15/24 Rx losartan 50 mg tablet 50 mg PO QHS 01/03/24 09/14/24 His tory gabapentin 100 mg capsule 100 mg PO QDAY 04/28/24 09/11/24 H istory ondansetron 4 mg disintegrating 4 mg PO Q8H PRN PRN Nausea #10 tab s 08/11/24 08/15/24 Rx tablet sertraline 25 mg tablet (Zoloft) 25 mg PO DAILY 09/11/24 09/14/24 H istory lactulose 10 gram/15 mL oral 15 ml PO QDAY 09/14/24 09/14/24 Hi story solution linaclotide 145 mcg capsule 290 mcg PO QAM 09/14/24 History (Linzess) linaclotide 290 mcg capsule 290 mcg PO QAM #30 caps 09/14/24 0 09/14/24 Rx (Linzess) Have you fallen in the past year?: No PFSH Medical History Metabolic encephalopathy Adverse drug reaction Dehydration Hypokalemia Acute hyponatremia Retroperitoneal lymphadenopathy Abdominal pain Depression Back pain Constipation Wears hearing aid Wears glasses Cancer Thyroid disease Walker as ambulation aid High cholesterol Non-smoker Leg cramps History of echocardiogram History of stress test Cardiology follow-up encounter Cholinesterase deficiency Encounter for education Anemia CLL (chronic lymphocytic leukemia) Hypothyroidism Vertigo Varicose veins of legs Supraclavicular mass Supraclavicular lymphadenopathy Skin lesion of face Skin lesion of neck Stress incontinence Psoriasis Osteoporosis Mitral valve prolapse Low back pain with right-sided sciatica Hyperlipidemia High blood pressure Hematuria Surgical History Hx of kyphoplasty S/P abdominal hysterectomy H/O umbilical hernia repair History of tonsillectomy S/P appendectomy Family History Brother CAD (coronary artery disease) Cancer Hyperlipemia Mother Cancer Leukemia Sister Cancer Sarcoma Social History household members: none housing: house Smoking Status: Never smoker alcohol intake: never substance use type: does not use HPI HPI Chief Complaint: follow-up Details: BOB MCKENNA, is a 84 F who presents to the office today for OV 08/15/2024 84y/o female presents for follow-up after evaluation in ED for N/V/D on 08/11/2024. PMH is significant for CLL, hyponatremia, constipation (on MiraLAX, lactulose and stool softener at baseline), hypertension, hyperlipidemia and hypothyroidism. She reports a long history of constipation which worsened with starting zanubrutinib for her CLL 2 to 3 years ago. She complains of constant lower abdominal pressure, bloating and feeling of incomplete evacuation. She reports having 0-4 bowel movements a day despite taking MiraLAX with stool softener every morning and lactulose with a stool softener every evening. She denies any bleeding. She reports eating a high-fiber diet with the addition of prunes and daily daily. Her last colonoscopy was reportedly normal 15 years ago and she declines repeating at this time. CT scan performed August 11, 2024 without oral contrast showed no acute findings. CT performed March 2024 to reveal mild to moderate stool burden. I have recommended she discontinue her current bowel regimen and start Linzess 145 mcg once daily. She complains o (more content not included)... Normal [facility] Fluor Guidance for Spine Inj on 09-11-20[address] Guidance for Spine Inj [facility] Imaging Services [address] [place] [address] Fluor Guidance for Spine Inj MR#: [id number] Acct: [id number] Name: BOB MCKENNA Rep #: [id number] : 1940 F 84 From: Razia Shepherd PCP: Dr. Lizzette Apple DO Status: [facility] Study: Fluor Guidance for Spine Inj Date of Exam: 12/29 Exam# [id number] Ordering Dr: Brien Ocampo MD PROCEDURE: FLUOR GUIDANCE FOR SPINE INJ 09/11/2024 REASON FOR EXAM: BLOCK,CAUDAL TECHNIQUE: 2 fluoroscopic images were submitted. Fluoroscopy time was 7.7 seconds. Peak skin radiation dose was 2.1 mGy. COMPARISON: None FINDINGS: See impression RAD/Fluor Guidance for Spine Inj IMPRESSION: Fluoroscopic guidance provided during sacral injection. See operative report for further details. Reading Location: [facility] CC: Dr. Brien Ocampo MD; Dr. Lizzette Apple DO Closer On: Signed [facility] MR/POSTOP.ANEon 09-11-2024 MR/POSTOP.[facility] Medical Records Department [address] [place] [address] Anesthesia Postop Eval I 09/11/24 0946 MR#: [id number] Acct: [id number] Name: BALABOB Monreal Rep #: [id number] : 1940 84 From: Machelle Wang PCP: Dr. Lizzette Apple, DO Status:REG SDC Y Race: C Location: [place] [address] Anesthesia: Postop Eval I Current Vital Signs Temperature: 97.3 F Pulse Rate: 69 Blood Pressure: 110/78 Respiratory Rate: 20 Pulse Ox: 100 Assessment Airway patent: Yes Spontaneous unlabored respirations: Yes nausea: No Vomiting: No Anesthesia Complication: No Fluid Hydration Crystalloid volume administer (ml): 10 Total IV fluid infused: 10 Progress Note Anesthesia document: Postop Eval 1 completed: Yes 09/11/24 0949 Date Machelle Toth Signature: Date CC: Signed Normal [facility] MR/[id number] 09-11-2024 MR/POSTOPAN2 [facility] Medical Records Department [address] [place] [address] Anesthesia Postop Eval II 09/11/24 1012 MR#: [id number] Acct: [id number] Name: BOB MCKENNA Rep #: [id number] : 1940 84 From: Machelle Wang PCP: Dr. Lizzette Apple, DO Status:REG SDC Y Race: C Location: [place] [address] Anesthesia Postop Eval I Sum Postop Eval Completion status Anesthesia document: Postop Eval 1 completed: Yes Anesthesia Postop Eval I Summary Anesthesia Postop Eval I Summary: Anesthesia Postop Eval I: Assessment Summary Airway patent Yes 09/11/24 09:46 ANALYSIS EVALUATOR.CSIR Spontaneous unlabored Yes 09/11/24 09:46 ANALYSIS EVALUATOR.CSIR respirations Mental status nausea No 09/11/24 09:46 ANALYSIS EVALUATOR.CSIR Vomiting No 09/11/24 09:46 ANALYSIS EVALUATOR.CSIR Anesthesia Postop Eval I: Fluid Summary Crystalloid volume administer 10 09/11/24 09:46 ANALYSIS EVALUATOR.CSIR (ml) Colloids volume administered ( ml) Blood Product volume administered (ml) Total IV fluid infused 10 09/11/24 09:46 ANALYSIS EVALUATOR.CSIR Anesthesia Postop Eval I: Summary Notes Anesthesia Complication No 09/11/24 09:46 ANALYSIS EVALUATOR.CSIR Anesthesia Complication Comment: Post-operative progress note Anesthesia: Postop Eval II Evaluation Mental status: Awake Pain Level: 2 nausea: No Vomiting: No 09/11/24 1012 Date Machelle Gonzalezigner Signature: Date CC: Signed Normal [facility] Operative Reporton 5 Operative Report [facility] Medical Records Department [address] [place] [address] Operative Report 09/11/24 0949 MR#: [id number] Acct: [id number] Name: BOB MCKENNA Rep #: [id number] : 1940 84 From: Brien Ocampo MD PCP: Dr. Lizzette Apple, DO Status:[facility] Location: [place] [address] Operative Report (Standard) Operative Information Date of Procedure: 09/11/24 Pre-Operative Diagnosis: Lumbosacral radiculopathy, lumbosacral spinal stenosis, lumbosacral degenerative disc disease Post-Operative Diagnosis: Lumbosacral radiculopathy, lumbosacral spinal stenosis, lumbosacral degenerative disc disease Surgery/Procedure Performed: Diagnostic/therapeutic caudal epidural steroid injection under fluoroscopic guidance well drill operator helper cable tool: No Type of Anesthesia: Local MAC RN Documented Start/Stop Times: Operation Date: 09/11/24 10:00 Case Time Into Pre-Op 09/11/24 08:31 Out of Pre-Op 09/11/24 09:30 Anesthesia Start 09/11/24 09:33 Into Room 09/11/24 09:33 Procedure Start 09/11/24 09:41 Procedure End 09/11/24 09:43 Anesthesia End 09/11/24 09:46 Out of Room 09/11/24 09:46 Procedure Start Time: 09:50 Procedure Stop Time: 09:50 Select all DRAINS/GRAFTS/IMPLANTS that apply: None Estimated Blood Loss: 0 Specimen collected: No Description of surgery: ANESTHESIA: MAC. BLOOD LOSS: Minimal. COMPLICATIONS: None. DESCRIPTION OF PROCEDURE: History and physical of today was reviewed. Risks and benefits of the procedure were explained. The patient understood and agreed to proceed. Informed consent was obtained. IV inserted per routine protocol. The patient was taken to the operating room and placed in the prone position with a pillow positioned underneath the abdomen. The lower back and tailbone area was prepped and draped in a sterile fashion using iodine x3. Under fluoroscopy guidance on a lateral view, the caudal space was identified. The skin and subcutaneous tissue was anesthetized with approximately 3 mL of 1% lidocaine using a 25-gauge regular needle. Under direct visualization with fluoroscopy, using a 22-gauge 3-1/2-inch spinal needle, the needle was advanced via the skin through the sacral hiatus. The tip of the needle was passed through the sacrococcygeal ligament and advanced to approximately S4 area. After negative aspiration of blood or CSF, a total of 3 mL of contrast was injected to confirm correct placement of the needle as well as cephalad spread. The spread was followed to approximately L5 area. After confirmation on AP as well as lateral view and repeated negative aspiration, a total of 15 mL of preservative-free 0.125% Marcaine with 80 mg of Depo-Medrol was injected easily. The needle was then removed intact. The patient experienced no sign or symptoms of intrathecal or intravascular injection. The patient experienced no paresthesia. The procedure was completed without any apparent difficulty or any complications. The patient appeared to tolerate it well. ASSESSMENT AND PLAN: This is an-84 year-old female with lumbosacral radiculopathy, lumbosacral degenerative disc disease, lumbosacral spinal stenosis status post diagnostic/therapeutic caudal epidural steroid injection under fluoroscopic guidance, patient will continue her current medications, patient will follow-up in approximately 2 weeks for reevaluation. Surgical Findings: 1 Complications Complications: No Admit VTE Documentation VTE Present on Admission: No 09/11/24 0904 Cosigner Signature (if applicable): CC: Dr. Brien Ocampo MD; Dr. Lizzette Apple, DO Signed Normal [facility] Absolute lymphocyte countOrd ered By: Shanellmartha Theodore on 09-04-2024 Lymphocytes Auto (Unsp spec) [#/Vol] 1.78 10*3/uL 0.83-4.51 [facility] Absolute neutrophil countOrd ered By: Shanell Ewelina on 09-04-2024 Neutrophils (Bld) [#/Vol] 3.0 10*3/uL 2.0-7.7 [facility] Anion gap in Serum or Plasma Ordered By: Shanellmartha LawtonEwelina on 09-04-2024 Anion gap [Moles/Vol] 10 mmol/L 5-15 [facility] Automated lymphocyte count a s percentage of total leukocytesOrdered By: Shanell Theodore on 09-04-2024 Lymphocytes/100 WBC Auto (Unsp spec) 31.0 % 19-41 [facility] BUN/creatinine ratioOrdered By: [facility] Ewleina on 09-04-2024 Urea nitrogen/Creatinine [Mass ratio] 16.3 mg/mg 10-20 [facility] Basophil percentageOrdered B y: Shanellmartha DumontEwelina on 09-04-2024 Basophils/100 WBC (Bld) 0.7 % 0-1 [facility] Bilirubin, totalOrdered By: Shanell Theodore on 09-04-2024 Bilirubin [Mass/Vol] 0.33 mg/dL 0.00-1.30 [facility] CBC W/Diff, Automatedon 08-07 Absolute Lymph 1.78 X10 3/uL Normal 0.83-4.51 [facility] Comment on above: Performed By: #### L 100.0100, L504.2610, L500.4050 ####[facility] [address] [place], [address] Absolute Neut 3.0 X10 3/uL Normal 2.0-7.7 [facility] Comment on above: Performed By: #### L 100.0100, L504.2610, L500.4050 ####[facility] [address] [place], [address] Basophils/100 WBC (Bld) 0.7 % Normal 0-1 [facility] Comment on above: Performed By: #### L 100.0100, L504.2610, L500.4050 ####[facility] [address] [place], [address] Eosinophils/100 WBC (Bld) 1.2 % Normal 0-5 [facility] Comment on above: Performed By: #### L 100.0100, L504.2610, L500.4050 ####[facility] [address] [place], [address] Erythrocyte distribution width (RBC) [Ratio] 13.7 % Normal 11.6-14.6 [facility] Comment on above: Performed By: #### L 100.0100, L504.2610, L500.4050 ####[facility] [address] [place], [address] Hematocrit (Bld) [Volume fraction] 37.1 % Normal 37-47 [facility] Comment on above: Performed By: #### L 100.0100, L504.2610, L500.4050 ####[facility] [address] [place], [address] Hemoglobin (Bld) [Mass/Vol] 12.5 g/dL Normal 12.0-15.0 [facility] Comment on above: Performed By: #### L 100.0100, L504.2610, L500.4050 ####[facility] [address] [place], [address] IG% 1.200 High 0.0-0.9 [facility] Comment on above: Result Comment: IG% - Immature Granulocytes (promyelocytes, myelocytes and metamyelocytes) > 1% indicates that a LEFT SHIFT is Present. Performed By: #### L 100.0100, L504.2610, L500.4050 ####[facility] [address] [place], [address] Lymphocytes/100 WBC (Bld) 31.0 % Normal 19-41 [facility] Comment on above: Performed By: #### L 100.0100, L504.2610, L500.4050 ####[facility] [address] [place], [address] MCH (RBC) [Entitic mass] 29.5 pg Normal 27.0-32.0 [facility] Comment on above: Performed By: #### L 100.0100, L504.2610, L500.4050 ####[facility] [address] [place], [address] MCHC (RBC) [Mass/Vol] 33.7 g/dL Normal 32-36 [facility] Comment on above: Performed By: #### L 100.0100, L504.2610, L500.4050 ####[facility] [address] [place], [address] MCV (RBC) [Entitic vol] 87.5 fL Normal 81-99 [facility] Comment on above: Performed By: #### L 100.0100, L504.2610, L500.4050 ####[facility] [address] [place], [address] Monocytes/100 WBC (Bld) 13.2 % High 0-10 [facility] Comment on above: Performed By: #### L 100.0100, L504.2610, L500.4050 ####[facility] [address] [place], [address] Neutrophils/100 WBC (Bld) 52.7 % Normal 47-70 [facility] Comment on above: Performed By: #### L 100.0100, L504.2610, L500.4050 ####[facility] [address] [place], [address] Nucleated RBC (Bld) [#/Vol] 0 10*3/uL Normal 0-5 [facility] Comment on above: Performed By: #### L 100.0100, L504.2610, L500.4050 ####[facility] [address] [place], [address] Platelet mean volume (Bld) [Entitic vol] 8.9 fL Normal 6.2-12.0 [facility] Comment on above: Performed By: #### L 100.0100, L504.2610, L500.4050 ####[facility] [address] [place], [address] Platelets (Bld) [#/Vol] 287 10*3/uL Normal 150-450 [facility] Comment on above: Performed By: #### L 100.0100, L504.2610, L500.4050 ####[facility] [address] [place], [address] RBC (Bld) [#/Vol] 4.24 10*6/uL Normal 4.2-5.4 [facility] Comment on above: Performed By: #### L 100.0100, L504.2610, L500.4050 ####[facility] [address] [place], [address] RDW SD 43.8 fl Normal 35.1-43.9 [facility] Comment on above: Performed By: #### L 100.0100, L504.2610, L500.4050 ####[facility] [address] [place], [address] WBC (Bld) [#/Vol] 5.7 10*3/uL Normal 4.4-11.0 [facility] Comment on above: Performed By: #### L 100.0100, L504.2610, L500.4050 ####[facility] [address] [place], [address] Carbon dioxide, total [Moles /volume] in Central venous bloodOrdered By: Shanell Theodore on 09-04-2024 CO2 [Moles/Vol] 23.4 mmol/L 21.0-32.0 [facility] Chloride assayOrdered By: Nahid Theodore on 09-04-2024 Chloride [Moles/Vol] 97 mmol/L Low 98-108 [facility] Comprehensive Metabolic Prof ilon 09-04-2024 Albumin [Mass/Vol] 4.1 g/dL Normal 3.4-4.8 [facility] Comment on above: Performed By: #### L 100.0100, L504.2610, L500.4050 ####[facility] [address] [place], [address] Albumin/Globulin [Mass ratio] 2.1 {ratio} Normal 0.9-2.4 [facility] Comment on above: Performed By: #### L 100.0100, L504.2610, L500.4050 ####[facility] [address] [place], [address] ALK PHOS 61 U/L Normal 35-104 [facility] Comment on above: Performed By: #### L 100.0100, L504.2610, L500.4050 ####[facility] [address] [place], [address] ALT [Catalytic activity/Vol] 14 U/L Normal <=34 [facility] Comment on above: Performed By: #### L 100.0100, L504.2610, L500.4050 ####[facility] [address] [place], [address] AST [Catalytic activity/Vol] 20 U/L Normal <=31 [facility] Comment on above: Performed By: #### L 100.0100, L504.2610, L500.4050 ####[facility] [address] [place], [address] Bilirubin [Mass/Vol] 0.33 mg/dL Normal 0.00-1.30 [facility] Comment on above: Performed By: #### L 100.0100, L504.2610, L500.4050 ####[facility] [address] [place], [address] BUN/CRE 16.3 RATIO Normal 10-20 [facility] Comment on above: Performed By: #### L 100.0100, L504.2610, L500.4050 ####[facility] [address] [place], [address] Calcium [Mass/Vol] 9.2 mg/dL Normal 7.6-11.0 [facility] Comment on above: Performed By: #### L 100.0100, L504.2610, L500.4050 ####[facility] [address] [place], [address] Chloride [Moles/Vol] 97 mmol/L Low 98-108 [facility] Comment on above: Performed By: #### L 100.0100, L504.2610, L500.4050 ####[facility] [address] [place], [address] CO2 [Moles/Vol] 23.4 mmol/L Normal 21.0-32.0 [facility] Comment on above: Performed By: #### L 100.0100, L504.2610, L500.4050 ####[facility] [address] [place], [address] Creatinine [Mass/Vol] 0.51 mg/dL Low 0.70-1.20 [facility] Comment on above: Performed By: #### L 100.0100, L504.2610, L500.4050 ####[facility] [address] [place], [address] ECRCL 42.53 ml/min Low 50-250 [facility] Comment on above: Performed By: #### L 100.0100, L504.2610, L500.4050 ####[facility] [address] [place], [address] GAP 10 Normal 5-15 [facility] Comment on above: Performed By: #### L 100.0100, L504.2610, L500.4050 ####[facility] [address] [place], [address] GFR/1.73 sq M.predicted among non-blacks MDRD (S/P/Bld) [Vol rate/Area] 91 mL/min/{1.73_m2} Normal >60 [facility] Comment on above: Result Comment: mL/m in/1.73m2 CKD-EPI Creatinine Equation (2020) Performed By: #### L 100.0100, L504.2610, L500.4050 ####[facility] [address] [place], [address] Globulin (S) [Mass/Vol] 2.0 g/dL Low 2.2-4.2 [facility] Comment on above: Performed By: #### L 100.0100, L504.2610, L500.4050 ####[facility] [address] [place], [address] Glucose [Mass/Vol] 125 mg/dL High 70-99 [facility] Comment on above: Performed By: #### L 100.0100, L504.2610, L500.4050 ####[facility] [address] [place], [address] Potassium [Moles/Vol] 4.2 mmol/L Normal 3.3-5.1 [facility] Comment on above: Performed By: #### L 100.0100, L504.2610, L500.4050 ####[facility] [address] [place], [address] Sodium [Moles/Vol] 131 mmol/L Low 133-145 [facility] Comment on above: Performed By: #### L 100.0100, L504.2610, L500.4050 ####[facility] [address] [place], [address] T PROT 6.1 g/dL Normal 5.9-8.4 [facility] Comment on above: Performed By: #### L 100.0100, L504.2610, L500.4050 ####[facility] [address] [place], [address] Urea nitrogen [Mass/Vol] 8 mg/dL Normal 4-19 [facility] Comment on above: Performed By: #### L 100.0100, L504.2610, L500.4050 ####[facility] [address] [place], [address] Eosinophil percentageOrdered By: Shanell Theodore on 09-04-2024 Eosinophils/100 WBC (Bld) 1.2 % 0-5 [facility] Erythrocyte distribution wid th (RBC) [Ratio]Ordered By: Shanell Theodore on 09-04-2024 Erythrocyte distribution width (RBC) [Entitic vol] 43.8 fL 35.1-43.9 [facility] Erythrocyte distribution wid th ratioOrdered By: Shanell Theodore on 09-04-2024 Erythrocyte distribution width (RBC) [Ratio] 13.7 % 11.6-14.6 [facility] Erythrocyte distribution wid th standard deviationOrdered By: Shanell Theodore on 09-04-2024 Erythrocyte distribution width (RBC) [Ratio] 43.8 fl 35.1-43.9 [facility] Estimation of creatinine shemar aranceOrdered By: Shanell Theodore on 09-04-2024 Estimated Creatinine Clearance Calc 42.53 ml/min Low 50-250 [facility] GFR/1.73 sq M.predicted jimbo g non-blacks MDRD (S/P/Bld) [Vol rate/Area]Ordered By: Shanell Theodore on 09-04-2024 Estimated GFR (MDRD) Non-Af Amer 91 >60 [facility] Comment on above: mL/min/1.73m2 CKD-EP I Creatinine Equation (2020) Glomerular filtration rate ( GFR) estimation/1.73 sq m using serum, plasma, or whole bOrdered By: Shanell Theodore on 09-04-2024 GFR/1.73 sq M.predicted among non-blacks MDRD (S/P/Bld) [Vol rate/Area] 91 mL/min/{1.73_m2} >60 [facility] Comment on above: mL/min/1.73m2 CKD-EP I Creatinine Equation (2020) Hematocrit Auto (Bld) [Volum e fraction]Ordered By: Shanell Theodore on 09-04-2024 Hematocrit (Bld) [Volume fraction] 37.1 % 37-47 [facility] Hemoglobin measurementOrdere d By: Shanell Theodore on 09-04-2024 Hemoglobin (Bld) [Mass/Vol] 12.5 g/dL 12.0-15.0 [facility] Immature granulocytes/100 WB C Auto (Bld)Ordered By: Shanell Theodore on 09-04-2024 Immature granulocytes/100 WBC (Bld) 1.200 % High 0.0-0.9 [facility] Comment on above: IG% - Immature Granu locytes (promyelocytes, myelocytes and metamyelocytes) > 1% indicates that a LEFT SHIFT is Present. LDHon 09-04-2024 LDH 186 U/L Normal 84-246 [facility] Comment on above: Order Comment: 1 Performed By: #### L 100.0100, L504.2610, L500.4050 ####[facility] [address] [place], [place], [id number] Laboratory - Chemistry and C hemistry - challengeOrdered By: Shanell Theodore on 09-04-2024 AST [Catalytic activity/Vol] 20 U/L <32 [facility] Lactate dehydrogenase (LDH) measurementOrdered By: Shanell Theodore on 09-04-2024 LDH [Catalytic activity/Vol] 186 U/L 84-246 [facility] Lymphocytes Auto (Unsp spec) [#/Vol]Ordered By: Shanell Theodore on 09-04-2024 Lymphocytes (Bld) [#/Vol] 1.78 10*3/uL 0.83-4.51 [facility] Lymphocytes/100 WBC Auto (Un sp spec)Ordered By: Shanell Theodore on 09-04-2024 Lymphocytes/100 WBC (Bld) 31.0 % 19-41 [facility] MCV (mean corpuscular volume ) determinationOrdered By: Shanell Theodore on 09-04-2024 MCV (RBC) [Entitic vol] 87.5 fL 81-99 [facility] Mean corpuscular hemoglobin (MCH) determinationOrdered By: Shanell Theodore on 09-04-2024 MCH (RBC) [Entitic mass] 29.5 pg 27.0-32.0 [facility] Mean corpuscular hemoglobin concentration (MCHC) determinationOrdered By: Shanell Theodore on 09-04-2024 MCHC (RBC) [Mass/Vol] 33.7 g/dL 32-36 [facility] Mean platelet volume determi nationOrdered By: Shanell Theodore on 09-04-2024 Platelet mean volume (Bld) [Entitic vol] 8.9 fL 6.2-12.0 [facility] Monocyte percentageOrdered B y: Shanell Theodore on 09-04-2024 Monocytes/100 WBC (Bld) 13.2 % High 0-10 [facility] Neutrophil percentageOrdered By: Shanell Theodore on 09-04-2024 Neutrophils/100 WBC (Bld) 52.7 % 47-70 [facility] Nucleated red blood cell per centageOrdered By: Shanell Theodore on 09-04-2024 Nucleated RBC/100 WBC (Bld) [Ratio] 0 % 0-5 [facility] Oncology Visit Reporton 08-07 Oncology Visit Report [facility] [address] [place] [address] OFFICE VISIT Date of Service: 09/04/24 1357 MR#: [id number] Acct: [id number] Name: BOB MCKENNA Rep #: [id number] : 1940 From: Shanell Theodore NP [employer] SPECIALIST -C Age/Sex: 84/F Location: [facility] Status: Signed HPI Subjective Date of Service 09/04/24 Chief Complaint CLL on treatment History of Present Illness 84-year-old female who presents with painless enlargement of lymph nodes in her neck. She has had no B symptoms. In July 2022 she suffered from COVID infection. She was not fully vaccinated Her family history is notable for mother and sister with leukemias. Her mother lived for several years without any treatment for her leukemia presumably a chronic. CBCs from August 2022 and April 2020 show an absolute lymphocytosis with normal hemoglobin and platelet counts. August 07, 2022 CT neck ([facility]): Bilateral cervical, superior mediastinal and axillary lymphadenopathy. August 26, 2022 CT chest abdomen and pelvis: IMPRESSION: Enlarged bilateral subclavicular and axillary lymph nodes. Enlarged retroperitoneal lymphadenopathy. No splenomegaly. August 18, 2022 peripheral blood: Flow cytometry: Chronic lymphocytic leukemia, CD20, 22, and 19 positive negative CD38. FISH panel: Trisomy 12 and loss of 1T p53 signal. CCND1/IGH, 13q, and NIC were normal. Treatment summary and response: Zanubrutinib March 22, 2023 OR Interval History The patient is presenting to clinic for a 12 week follow-up. Reports she discontinued zanabrutinib 1 month ago. She is unable to clearly verbalize to me as to why. She has experienced intermittent abd pain secondary to constipation- proven unrelated to zanabrutinib. Patient relays she believed the abd pain to be secondary to her cancer. States If that's the way its going to be, I don't want to prolong my life Daughter called last week requesting a referral to hospice. Estimates 64 oz PO fluid intake daily. Appetite good. Specifically denies any reoccurrence of pruritic rash, dysphagia, headaches, cough, shortness of breath, chest pain, palpitations, diarrhea, nausea, easy bruising, abdominal pain episodes of bleeding or abnormal bruising, and swelling pain of her extremities. [facility] Medical History Metabolic encephalopathy Adverse drug reaction Dehydration Hypokalemia Acute hyponatremia Retroperitoneal lymphadenopathy Abdominal pain Depression Back pain Constipation Wears hearing aid Wears glasses Cancer Thyroid disease Walker as ambulation aid High cholesterol Non-smoker Leg cramps History of echocardiogram History of stress test Cardiology follow-up encounter Cholinesterase deficiency Encounter for education Anemia CLL (chronic lymphocytic leukemia) Hypothyroidism Vertigo Varicose veins of legs Supraclavicular mass Supraclavicular lymphadenopathy Skin lesion of face Skin lesion of neck Stress incontinence Psoriasis Osteoporosis Mitral valve prolapse Low back pain with right-sided sciatica Hyperlipidemia High blood pressure Hematuria Surgical History Hx of kyphoplasty S/P abdominal hysterectomy H/O umbilical hernia repair History of tonsillectomy S/P appendectomy Family History Brother CAD (coronary artery disease) Cancer Hyperlipemia Mother Cancer Leukemia Sister Cancer Sarcoma Social History household members: none housing: house Smoking Status: Never smoker alcohol intake: never substance use type: does not use ROS ROS Narrative Negative except as documented in the interval HPI Intake Vital Signs 08/15/24 09:43 09/04/24 13:57 09/04/24 14:16 Height 5 ft 1 in 5 ft 1 in 5 ft 1 in Weight: 122 lb 8 oz 120 lb 9 oz BMI 23.1 22.8 BP 146/84 H 145/82 H Blood Pressure Location Rt brachial Position Sitting Respiration 16 16 Pulse 85 68 Pulse Source Monitor Temp 97.7 F L Temperature Source Temporal Artery Pulse Oximetry (%) 98 100 Oxygen Delivery Method room air room air Intake Is patient in pain?: No Allergies No Known Allergies Allergy (Verified 09/04/24 14:13) Medications ???Medication ???Instructions ???Recorded ???Confirmed ???Type ascorbic acid (vitamin C) 100 mg 100 mg PO DAILY 08/14/22 08/15/24 History tablet calcium carbonate 600 mg PO BID 08/14/22 08/15/24 Hi story cholecalciferol (vitamin D3) 10 10 mcg PO DAILY 08/14/22 08/15/24 History mcg (400 unit) capsule lutein 20 mg capsule 20 mg PO DAILY 08/14/22 08/15/24 H istory magnesium carbonate 1 cap PO DAILY 08/18/ (more content not included)... Normal [facility] Platelet countOrdered By: Nahid Theodore on 09-04-2024 Platelets (Bld) [#/Vol] 287 10*3/uL 150-450 [facility] Potassium (Unsp spec) [Mass/ Vol]Ordered By: Shanell Theodore on 09-04-2024 Potassium [Moles/Vol] 4.2 mmol/L 3.3-5.1 [facility] Potassium measurement (mass/ volume)Ordered By: Shanell Theodore on 09-04-2024 Potassium (Unsp spec) [Mass/Vol] 4.2 mmol/L 3.3-5.1 [facility] RBC Auto (Bld) [#/Vol]Ordere d By: Shanell Theodore on 09-04-2024 RBC (Bld) [#/Vol] 4.24 10*6/uL 4.2-5.4 [facility] Serum creatinine measurement (mass/volume)Ordered By: Shanell Theodore on 09-04-2024 Creatinine [Mass/Vol] 0.51 mg/dL Low 0.70-1.20 [facility] Serum globulin measurementOr dered By: Shanell Theodore on 09-04-2024 Globulin (S) [Mass/Vol] 2.0 g/dL Low 2.2-4.2 [facility] Serum glucose measurement (m ass/volume)Ordered By: Shanell Theodore on 09-04-2024 Glucose [Mass/Vol] 125 mg/dL High 70-99 [facility] Serum or plasma alanine taylor otransferase (ALT) measurementOrdered By: Shanell Theodore on 09-04-2024 ALT [Catalytic activity/Vol] 14 U/L <35 [facility] Serum or plasma albumin yakelin urement (mass/volume)Ordered By: Shanell Theodore on 09-04-2024 Albumin [Mass/Vol] 4.1 g/dL 3.4-4.8 [facility] Serum or plasma albumin/glob ulin mass ratioOrdered By: Shanell Theodore on 09-04-2024 Albumin/Globulin [Mass ratio] 2.1 {ratio} 0.9-2.4 [facility] Serum or plasma alkaline shanita sphatase measurementOrdered By: [facility] on 09-04-2024 ALP [Catalytic activity/Vol] 61 U/L 35-104 [facility] Serum or plasma calcium yakelin urement (mass/volume)Ordered By: [facility] on 09-04-2024 Calcium [Mass/Vol] 9.2 mg/dL 7.6-11.0 [facility] Serum or plasma urea nitroge n measurement (mass/volume)Ordered By: [facility] on 09-04-2024 Urea nitrogen [Mass/Vol] 8 mg/dL 4-19 [facility] Sodium levelOrdered By: [facility] on 09-04-2024 Sodium [Moles/Vol] 131 mmol/L Low 133-145 [facility] Total proteinOrdered By: [facility] martha [facility] on 09-04-2024 Protein [Mass/Vol] 6.1 g/dL 5.9-8.4 [facility] White blood cell (WBC) count Ordered By: [facility] on 09-04-2024 WBC (Bld) [#/Vol] 5.7 10*3/uL 4.4-11.0 [facility] 36on 08-27-2024 36 S: Patient spoke wit h [facility] nurse via Nurse Advice Line regarding questions. B: Onset of symptoms/concern Patient would like to know what kind of doctor takes care of patient's with thyroid issues and what doctor is covered by [facility]. A: N/A R: Patient advised to contact customer service tomorrow between 8:30 am and 5:30pm to discuss coverage. Customer service number relayed to patient, she verbalized understanding. No further needs at this time. Reason for Disposition ? General information question, no triage required and triager able to answer question Protocols used: Information Only Call - No [id number] Normal [facility] 08-24-2024 U Creatinine 38.1 mg/dL Normal [facility] Comment on above: Performed By: #### M ALBR ####[address] [place], [place] [address] U Microalb 5.4 mg/L [facility] Comment on above: Performed By: #### M ALBR ####[address] [place], [place] [address] U Ratio Alb/Cre 14 mg/G Normal 0-30 [facility] Comment on above: Performed By: #### M ALBR ####[facility] [place], [place] [address] 36on 08-20-2024 36 S: Patient daughter spoke with [facility] nurse via [facility] nurse advice line regarding abdominal pain B: Onset of symptoms/concern ongoing A: States chronic abdominal pain the encompasses entire abdomen. States pain is currently 5/10. States pain varies in intensity but is constant. States pain is constant. States last BM this AM post enema. Denies nausea, denies vomiting, denies abdominal bloating or swelling, denies bloody, black tarry stools, denies chest pain. States they would like to get patient admitted somewhere like extended care. States they have given patient 2 enemas to induce bowel movements since when patient had bowel movement on their own. R: Advised that patient should be evaluated this evening for abdominal pain. Advised given day and time they would need to go to ED. Patient daughter understands care advice and is unsure if they will go to ED or wait to call provider in the morning. No further needs at this time. Patient instructed to call back with new or worsening symptoms. Reason for Disposition [1] MILD-MODERATE pain AND [2] constant AND [3] present > 2 hours Protocols used: Abdominal Pain - ADULT-AH Normal [facility] Gastroenterology Visit Repor ton 08-15-2024 Gastroenterology Visit Report [facility] [address] [place] [address] OFFICE VISIT Date of Service: 08/15/24 MR#: [id number] Acct: [id number] Name: BOB MCKENNA Jocelin Rep #: [id number] : 1940 Provider: QUINCY lewis Age/Sex: 84/F Location: [facility] Status: Signed Intake Vital Signs 08/11/24 08:45 08/15/24 09:43 Height 5 ft 1 in 5 ft 1 in Weight: 122 lb 8 oz BMI 23.1 BP 146/84 H Respiration 16 Pulse 85 Pulse Oximetry (%) 98 Oxygen Delivery Method room air Intake Visit Reasons: ED follow up Conversion Worker Required: No Accompanied by: Daughter Is patient in pain?: Yes Allergies No Known Allergies Allergy (Verified 08/15/24 09:36) Medications ???Medication ???Instructions ???Recorded ???Confirmed ???Type ascorbic acid (vitamin C) 100 mg 100 mg PO DAILY 08/14/22 08/15/24 History tablet calcium carbonate 600 mg PO BID 08/14/22 08/15/24 Hi story cholecalciferol (vitamin D3) 10 10 mcg PO DAILY 08/14/22 08/15/24 History mcg (400 unit) capsule lutein 20 mg capsule 20 mg PO DAILY 08/14/22 08/15/24 H istory magnesium carbonate 1 cap PO DAILY 08/18/22 08/15/24 H istory mecobalamin (vitamin B12) 1,000 1,000 mcg PO Q OTHER DAY 03/01/23 08/15/24 History mcg lozenges levothyroxine 88 mcg capsule 88 mcg PO DAILY 06/01/23 08/15/24 History Disability Placard #1 ea 09/07/23 08/15/24 Rx disability placard #1 ea 01/03/24 08/15/24 Rx losartan 50 mg tablet 50 mg PO QHS 01/03/24 08/15/24 His tory zanubrutinib 80 mg capsule 160 mg (2 x 80 mg) PO BID 30 days 04/06/24 08/15/24 Rx #120 caps gabapentin 100 mg capsule 100 mg PO QDAY 04/28/24 08/15/24 H istory ondansetron 4 mg disintegrating 4 mg PO Q8H PRN PRN Nausea #10 tab s 08/11/24 08/15/24 Rx tablet linaclotide 145 mcg capsule 145 mcg PO QAM #30 caps 08/15/24 0 08/15/24 Rx (Linzess) Have you fallen in the past year?: Yes Nurse's Note: Has trouble with constipation and abdominal pain in front around belly button PFSH Medical History Metabolic encephalopathy Adverse drug reaction Dehydration Hypokalemia Acute hyponatremia Retroperitoneal lymphadenopathy Abdominal pain Depression Back pain Constipation Wears hearing aid Wears glasses Cancer Thyroid disease Walker as ambulation aid High cholesterol Non-smoker Leg cramps History of echocardiogram History of stress test Cardiology follow-up encounter Cholinesterase deficiency Encounter for education Anemia CLL (chronic lymphocytic leukemia) Hypothyroidism Vertigo Varicose veins of legs Supraclavicular mass Supraclavicular lymphadenopathy Skin lesion of face Skin lesion of neck Stress incontinence Psoriasis Osteoporosis Mitral valve prolapse Low back pain with right-sided sciatica Hyperlipidemia High blood pressure Hematuria Surgical History Hx of kyphoplasty S/P abdominal hysterectomy H/O umbilical hernia repair History of tonsillectomy S/P appendectomy Family History Brother CAD (coronary artery disease) Cancer Hyperlipemia Mother Cancer Leukemia Sister Cancer Sarcoma Social History household members: none housing: house Smoking Status: Never smoker alcohol intake: never substance use type: does not use HPI HPI Details: BOB MCKENNA, is a 84 F who presents to the office today for CBC and transaminases unremarkable 08/11/2024 CT A P 08/11/2024 with IV contrast only - no acute findings CT 04/01/2024 Mild to moderate stool burden, unremarkable. - seen in office today with her daughter shanna - consult with Oncology to determine if needs held 3-7d prior to any procedures - constipation, diarrhea and nausea are common GI s/e - very little nausea - denies any emesis - Miralax Qam with a stool softener, lactulose at HS with a stool softener and increased water intake - can have a BM 1-4x a day - can have days that she skips a BM - denies any bleeding - she does not feel like she is fully evacuating - constipation has been an issue since starting zanubrutinib 2-3 years ago - reports prior to even starting zanubrutinib she had intermittent issues with constipation and was on Miralax PRN - reports her last colonoscopy was 15 years ago and this was normal - c/o bloating and abdominal cramping - prunes and dates - appetite is good - eating does cause more bloating and discomfort - denies any weight loss B: grape nuts, blueberries, coffee, or eggs and toast L: soup, yogurt, banana D: protein, starch, vegetable, occasional salad (more content not included)... Normal [facility] Abdomen/Pelvis W IV Cont ONL Yon 08-11-2024 Abdomen/Pelvis W IV Cont ONLY [facility] Imaging Services [address] [place], [place] [id number] Abdomen/Pelvis W IV Cont ONLY MR#: [id number] Acct: [id number] Name: BOB MCKENNA Rep #: [id number] : 1940 F 84 From: Victoriano Wyman MD PCP: Dr. Lizzette Apple, Status: REG ER Study: Abdomen/Pelvis W IV Cont ONLY Date of Exam: Exam# [id number] Ordering Dr: Flower Arndt DO PROCEDURE: ABDOMEN/PELVIS W IV CONT ONLY REASON FOR EXAM: Abd pain TECHNIQUE: CT abdomen and pelvis was performed with IV contrast. Multiplanar reformats were generated. IV CONTRAST: 96 mL Isovue-300 COMPARISON: 04/01/2024 FINDINGS: Lung bases: Mild atelectasis/scarring. Cardiomegaly. Mitral annular calcification. Coronary atherosclerosis and/or stents. Liver: Unremarkable. Spleen: Tiny hypodensity superiorly too small to characterize, probably present on 08/26/2022 suggesting a benign etiology. Gallbladder: Unremarkable. Pancreas: Unremarkable. Adrenals: Unremarkable. Kidneys: Tiny hypodensity at the left upper pole too small to characterize, likely cyst, similar. Difficult to trace the course of the ureters. No hydronephrosis or definite ureteral calculus. Grossly similar presumed pelvic phleboliths in the absence of hydronephrosis/hydroureter. Bowel: Unremarkable. Appendix reportedly surgically absent. Lymph nodes: Unremarkable. Vasculature: Atherosclerosis.. Peritoneum: Unremarkable. Bladder: Underdistended and suboptimally evaluated, grossly unremarkable. Reproductive Organs: Hysterectomy. Body Wall: Unremarkable. Bones: Demineralization. Multilevel spondylosis. Similar multilevel compression deformities and changes of kyphoplasty/vertebroplasty at L2-L3 thoracic and upper lumbar dextroscoliosis and lower lumbar levoscoliosis. CT/Abdomen/Pelvis W IV Cont ONLY IMPRESSION: 1. No acute findings. 2. Additional description as above. Reading Location: [id number] CC: Dr. Flower Arndt, DO; Dr. Lizzette Apple, DO Closer On: Signed Normal [facility] Absolute lymphocyte countOrd ered By: Flower Arndt on 08-11-2024 Lymphocytes Auto (Unsp spec) [#/Vol] 2.53 10*3/uL 0.83-4.51 [facility] Absolute neutrophil countOrd ered By: Flower Arndt on 08-11-2024 Neutrophils (Bld) [#/Vol] 3.0 10*3/uL 2.0-7.7 [facility] Anion gap in Serum or Plasma Ordered By: Flower Arndt on 08-11-2024 Anion gap [Moles/Vol] 13 mmol/L 5-15 [facility] Automated lymphocyte count a s percentage of total leukocytesOrdered By: Flower Arndt on 08-11-2024 Lymphocytes/100 WBC Auto (Unsp spec) 40.4 % 19-41 [facility] BUN/creatinine ratioOrdered By: Flower Arndt on 08-11-2024 Urea nitrogen/Creatinine [Mass ratio] 16.8 mg/mg 10-20 [facility] Basophil percentageOrdered B y: Flower Arndt on 08-11-2024 Basophils/100 WBC (Bld) 0.8 % 0-1 [facility] Bilirubin Test strip Ql (U)O rdered By: Flower Arndt on 08-11-2024 Bilirubin Ql (U) Negative Negative [facility] Bilirubin, totalOrdered By: Flower Arndt on 08-11-2024 Bilirubin [Mass/Vol] 0.44 mg/dL 0.00-1.30 [facility] CBC W/Diff, Automatedon Absolute Lymph 2.53 X10 3/uL Normal 0.83-4.51 [facility] Comment on above: Performed By: #### L 500.4050, L100.0100, L501.2450 ####[facility] [address] [place], [address] Absolute Neut 3.0 X10 3/uL Normal 2.0-7.7 [facility] Comment on above: Performed By: #### L 500.4050, L100.0100, L501.2450 ####[facility] [address] [place], [address] Basophils/100 WBC (Bld) 0.8 % Normal 0-1 [facility] Comment on above: Performed By: #### L 500.4050, L100.0100, L501.2450 ####[facility] [address] [place], [address] Eosinophils/100 WBC (Bld) 1.3 % Normal 0-5 [facility] Comment on above: Performed By: #### L 500.4050, L100.0100, L501.2450 ####[facility] [address] [place], [address] Erythrocyte distribution width (RBC) [Ratio] 13.5 % Normal 11.6-14.6 [facility] Comment on above: Performed By: #### L 500.4050, L100.0100, L501.2450 ####[facility] [address] [place], [address] Hematocrit (Bld) [Volume fraction] 41.9 % Normal 37-47 [facility] Comment on above: Performed By: #### L 500.4050, L100.0100, L501.2450 ####[facility] [address] [place], [address] Hemoglobin (Bld) [Mass/Vol] 13.8 g/dL Normal 12.0-15.0 [facility] Comment on above: Performed By: #### L 500.4050, L100.0100, L501.2450 ####[facility] [address] [place], [address] IG% 0.800 Normal 0.0-0.9 [facility] Comment on above: Result Comment: IG% - Immature Granulocytes (promyelocytes, myelocytes and metamyelocytes) > 1% indicates that a LEFT SHIFT is Present. Performed By: #### L 500.4050, L100.0100, L501.2450 ####[facility] [address] [place], [address] Lymphocytes/100 WBC (Bld) 40.4 % Normal 19-41 [facility] Comment on above: Performed By: #### L 500.4050, L100.0100, L501.2450 ####[facility] [address] [place], [address] MCH (RBC) [Entitic mass] 28.9 pg Normal 27.0-32.0 [facility] Comment on above: Performed By: #### L 500.4050, L100.0100, L501.2450 ####[facility] [address] [place], [address] MCHC (RBC) [Mass/Vol] 32.9 g/dL Normal 32-36 [facility] Comment on above: Performed By: #### L 500.4050, L100.0100, L501.2450 ####[facility] [address] [place], [address] MCV (RBC) [Entitic vol] 87.8 fL Normal 81-99 [facility] Comment on above: Performed By: #### L 500.4050, L100.0100, L501.2450 ####[facility] [address] [place], [address] Monocytes/100 WBC (Bld) 9.7 % Normal 0-10 [facility] Comment on above: Performed By: #### L 500.4050, L100.0100, L501.2450 ####[facility] [address] [place], [address] Neutrophils/100 WBC (Bld) 47.0 % Normal 47-70 [facility] Comment on above: Performed By: #### L 500.4050, L100.0100, L501.2450 ####[facility] [address] [place], [address] Nucleated RBC (Bld) [#/Vol] 0 10*3/uL Normal 0-5 [facility] Comment on above: Performed By: #### L 500.4050, L100.0100, L501.2450 ####[facility] [address] [place], [address] Platelet mean volume (Bld) [Entitic vol] 10.6 fL Normal 6.2-12.0 [facility] Comment on above: Performed By: #### L 500.4050, L100.0100, L501.2450 ####[facility] [address] [place], [address] Platelets (Bld) [#/Vol] 291 10*3/uL Normal 150-450 [facility] Comment on above: Performed By: #### L 500.4050, L100.0100, L501.2450 ####[facility] [address] [place], [address] RBC (Bld) [#/Vol] 4.77 10*6/uL Normal 4.2-5.4 [facility] Comment on above: Performed By: #### L 500.4050, L100.0100, L501.2450 ####[facility] [address] [place], [address] RDW SD 43.7 fl Normal 35.1-43.9 [facility] Comment on above: Performed By: #### L 500.4050, L100.0100, L501.2450 ####[facility] [address] [place], [address] WBC (Bld) [#/Vol] 6.3 10*3/uL Normal 4.4-11.0 [facility] Comment on above: Performed By: #### L 500.4050, L100.0100, L501.2450 ####[facility] [address] [place], [address] Carbon dioxide, total [Moles /volume] in Central venous bloodOrdered By: Flower Arndt on 08-11-2024 CO2 [Moles/Vol] 25.2 mmol/L 21.0-32.0 [facility] Chloride assayOrdered By: Charly Arndt on 08-11-2024 Chloride [Moles/Vol] 98 mmol/L 98-108 [facility] Comprehensive Metabolic Prof ilon 08-11-2024 Albumin [Mass/Vol] 4.4 g/dL Normal 3.4-4.8 [facility] Comment on above: Performed By: #### L 500.4050, L100.0100, L501.2450 ####[facility] [address] [place], [address] Albumin/Globulin [Mass ratio] 1.8 {ratio} Normal 0.9-2.4 [facility] Comment on above: Performed By: #### L 500.4050, L100.0100, L501.2450 ####[facility] [address] [place], [address] ALK PHOS 69 U/L Normal 35-104 [facility] Comment on above: Performed By: #### L 500.4050, L100.0100, L501.2450 ####[facility] [address] [place], [address] ALT [Catalytic activity/Vol] 19 U/L Normal <=34 [facility] Comment on above: Performed By: #### L 500.4050, L100.0100, L501.2450 ####[facility] [address] [place], [address] AST [Catalytic activity/Vol] 25 U/L Normal <=31 [facility] Comment on above: Performed By: #### L 500.4050, L100.0100, L501.2450 ####[facility] [address] [place], [address] Bilirubin [Mass/Vol] 0.44 mg/dL Normal 0.00-1.30 [facility] Comment on above: Performed By: #### L 500.4050, L100.0100, L501.2450 ####[facility] [address] [place], [address] BUN/CRE 16.8 RATIO Normal 10-20 [facility] Comment on above: Performed By: #### L 500.4050, L100.0100, L501.2450 ####[facility] [address] [place], [address] Calcium [Mass/Vol] 9.7 mg/dL Normal 7.6-11.0 [facility] Comment on above: Performed By: #### L 500.4050, L100.0100, L501.2450 ####[facility] [address] [place], [address] Chloride [Moles/Vol] 98 mmol/L Normal 98-108 [facility] Comment on above: Performed By: #### L 500.4050, L100.0100, L501.2450 ####[facility] [address] [place], [address] CO2 [Moles/Vol] 25.2 mmol/L Normal 21.0-32.0 [facility] Comment on above: Performed By: #### L 500.4050, L100.0100, L501.2450 ####[facility] [address] [place], [address] Creatinine [Mass/Vol] 0.63 mg/dL Low 0.70-1.20 [facility] Comment on above: Performed By: #### L 500.4050, L100.0100, L501.2450 ####[facility] [address] [place], [address] ECRCL 38.80 ml/min Low 50-250 [facility] Comment on above: Performed By: #### L 500.4050, L100.0100, L501.2450 ####[facility] [address] [place], [address] GAP 13 Normal 5-15 [facility] Comment on above: Performed By: #### L 500.4050, L100.0100, L501.2450 ####[facility] [address] [place], [address] GFR/1.73 sq M.predicted among non-blacks MDRD (S/P/Bld) [Vol rate/Area] 87 mL/min/{1.73_m2} Normal >60 [facility] Comment on above: Result Comment: mL/m in/1.73m2 CKD-EPI Creatinine Equation (2020) Performed By: #### L 500.4050, L100.0100, L501.2450 ####[facility] [address] [place], [address] Globulin (S) [Mass/Vol] 2.5 g/dL Normal 2.2-4.2 [facility] Comment on above: Performed By: #### L 500.4050, L100.0100, L501.2450 ####[facility] [address] [place], [address] Glucose [Mass/Vol] 110 mg/dL High 70-99 [facility] Comment on above: Performed By: #### L 500.4050, L100.0100, L501.2450 ####[facility] [address] [place], [address] Potassium [Moles/Vol] 3.8 mmol/L Normal 3.3-5.1 [facility] Comment on above: Performed By: #### L 500.4050, L100.0100, L501.2450 ####[facility] [address] [place], [address] Sodium [Moles/Vol] 136 mmol/L Normal 133-145 [facility] Comment on above: Performed By: #### L 500.4050, L100.0100, L501.2450 ####[facility] [address] [place], [address] T PROT 7.0 g/dL Normal 5.9-8.4 [facility] Comment on above: Performed By: #### L 500.4050, L100.0100, L501.2450 ####[facility] [address] [place], [address] Urea nitrogen [Mass/Vol] 11 mg/dL Normal 4-19 [facility] Comment on above: Performed By: #### L 500.4050, L100.0100, L501.2450 ####[facility] [address] [place], [address] Emergency Department Summary on 08-11-2024 Emergency Department Summary [facility] Medical Records Department [address] [place] [address] Emergency Department Summary 08/11/24 MR#: [id number] Acct: [id number] Name: BOB MCKENNA Rep #: [id number] : 1940 84 From: Flower Arndt DO PCP: Dr. Lizzette Apple, DO Status:DEP ER Location: ED HPI History of Present Illness Chief Complaint: Nausea/Vomiting Informant: patient Narrative Narrative: Patient is an 84-year-old female with history of CLL, hyponatremia, constipation (on MiraLAX, lactulose and stool softener at baseline), hypertension, hyperlipidemia and hypothyroidism presenting for nausea and upset stomach. Patient states for the past year and a half since she has been on her zanubrutinib for her CLL (follows with Dr. Castro) she has had issues with bloating and constipation. She states that for the past week she has been having diarrhea. She describes as a mixture of soft stools and watery stools. This morning went a time for her to eat breakfast her stomach was upset and she felt she could not eat. She states that the nausea is feeling better now. She not take anything for it. She notes that she is having 1-2 bowel movements a day but often feels that she needs to have more bowel movements. She denies any black or blood in her stool. Denies any fever or urinary symptoms. Has a history of hysterectomy and appendectomy. Came in for further evaluation given the nausea and upset stomach this morning. Denies any chest pain or shortness of breath. [facility] Medical History Metabolic encephalopathy Adverse drug reaction Dehydration Hypokalemia Acute hyponatremia Retroperitoneal lymphadenopathy Abdominal pain Depression Back pain Constipation Wears hearing aid Wears glasses Cancer Thyroid disease Walker as ambulation aid High cholesterol Non-smoker Leg cramps History of echocardiogram History of stress test Cardiology follow-up encounter Cholinesterase deficiency Encounter for education Anemia CLL (chronic lymphocytic leukemia) Hypothyroidism Vertigo Varicose veins of legs Supraclavicular mass Supraclavicular lymphadenopathy Skin lesion of face Skin lesion of neck Stress incontinence Psoriasis Osteoporosis Mitral valve prolapse Low back pain with right-sided sciatica Hyperlipidemia High blood pressure Hematuria Home Medications ???Medication ???Instructions ???Recorded ???Last Taken ???Type ascorbic acid (vitamin C) 100 mg 100 mg PO DAILY 08/14/22 10/20/23 History tablet calcium carbonate 600 mg PO BID 08/14/22 10/20/23 Hi story cholecalciferol (vitamin D3) 10 10 mcg PO DAILY 08/14/22 10/20/23 History mcg (400 unit) capsule lutein 20 mg capsule 20 mg PO DAILY 08/14/22 10/20/23 H istory magnesium carbonate 1 cap PO DAILY 08/18/22 10/20/23 H istory mecobalamin (vitamin B12) 1,000 1,000 mcg PO Q OTHER DAY 03/01/23 10/20/23 History mcg lozenges levothyroxine 88 mcg capsule 88 mcg PO DAILY 06/01/23 10/20/23 History Disability Placard #1 ea 09/07/23 Unknown Rx disability placard #1 ea 01/03/24 Unknown Rx losartan 50 mg tablet 50 mg PO QHS 01/03/24 06/11/24 His tory lactulose 20 gram/30 mL oral 20 g (30 mL) PO BID #1,500 mL 03/08 01/28 Unknown Rx solution zanubrutinib 80 mg capsule 160 mg (2 x 80 mg) PO BID 30 days 04/06/24 06/05/24 Rx #120 caps gabapentin 100 mg capsule 100 mg PO QDAY 04/28/24 Unknown Hi story ondansetron 4 mg disintegrating 4 mg PO Q8H PRN PRN Nausea #10 tab s 08/11/24 Unknown Rx tablet Allergy/AdvReac Type Severity Reaction Status Date / Time No Known Allergies Allergy Verified 08/11/24 08:48 Family History Brother CAD (coronary artery disease) Cancer Hyperlipemia Mother Cancer Leukemia Sister Cancer Sarcoma Surgical History Hx of kyphoplasty S/P abdominal hysterectomy H/O umbilical hernia repair History of tonsillectomy S/P appendectomy Social History household members: none housing: house Smoking Status: Never smoker alcohol intake: never substance use type: does not use ROS ROS ED Constitutional Constitutional ED: Denies chills or fever(s) Cardiovascular Cardiovascular: Denies chest pain Respiratory/Chest Respiratory/Chest: Denies cough or dyspnea Gastrointestinal Gastrointestinal: Reports abdominal pain, diarrhea and nausea; Denies melena or vomiting Genitourinary Genitourinary ED: Denies dysuria or hematuria Musculoskeletal Musculoskeletal: Reports other Details: Reports some chronic low back pain???no acute change today ; Denies arthralgias or myalgias Integumentary Denies rash (more content not included)... Normal [facility] Eosinophil percentageOrdered By: Flower Arndt on 08-11-2024 Eosinophils/100 WBC (Bld) 1.3 % 0-5 [facility] Epithelial cells.squamous LM Ql (Urine sed)Ordered By: Flower Arndt on 08-11-2024 Epithelial cells.squamous LM.HPF (Urine sed) [#/Area] 0 /[HPF] 5-10 [facility] Erythrocyte distribution wid th ratioOrdered By: Flower Arndt on 08-11-2024 Erythrocyte distribution width (RBC) [Ratio] 13.5 % 11.6-14.6 [facility] Erythrocyte distribution wid th standard deviationOrdered By: Flower Arndt on 08-11-2024 Erythrocyte distribution width (RBC) [Entitic vol] 43.7 fL 35.1-43.9 [facility] Erythrocyte distribution width (RBC) [Ratio] 43.7 fl 35.1-43.9 [facility] Estimation of creatinine shemar aranceOrdered By: Flower Arndt on 08-11-2024 Estimated Creatinine Clearance Calc 38.80 ml/min Low 50-250 [facility] GFR/1.73 sq M.predicted jimbo g non-blacks MDRD (S/P/Bld) [Vol rate/Area]Ordered By: Flower Arndt on 08-11-2024 Estimated GFR (MDRD) Non-Af Amer 87 >60 [facility] Comment on above: mL/min/1.73m2 CKD-EP I Creatinine Equation (2020) Glomerular filtration rate ( GFR) estimation/1.73 sq m using serum, plasma, or whole bOrdered By: Flower Arndt on 08-11-2024 GFR/1.73 sq M.predicted among non-blacks MDRD (S/P/Bld) [Vol rate/Area] 87 mL/min/{1.73_m2} >60 [facility] Comment on above: mL/min/1.73m2 CKD-EP I Creatinine Equation (2020) Glucose Ql (U)Ordered By: Charly Arndt on 08-11-2024 Urine Glucose (UA) Normal mg/dl Normal [facility] Hematocrit Auto (Bld) [Volum e fraction]Ordered By: Flower Arndt on 08-11-2024 Hematocrit (Bld) [Volume fraction] 41.9 % 37-47 [facility] Hemoglobin measurementOrdere d By: Flower Arndt on 08-11-2024 Hemoglobin (Bld) [Mass/Vol] 13.8 g/dL 12.0-15.0 [facility] Immature granulocytes/100 WB C Auto (Bld)Ordered By: Flower Arndt on 08-11-2024 Immature granulocytes/100 WBC (Bld) 0.800 % 0.0-0.9 [facility] Comment on above: IG% - Immature Granu locytes (promyelocytes, myelocytes and metamyelocytes) > 1% indicates that a LEFT SHIFT is Present. Ketones Test strip Ql (U)Ord ered By: Flower Arndt on 08-11-2024 Ketones Ql (U) Negative Negative [facility] Laboratory - Chemistry and C hemistry - challengeOrdered By: Flower Arndt on 08-11-2024 AST [Catalytic activity/Vol] 25 U/L <32 [facility] Lipaseon 08-11-2024 Lipase [Catalytic activity/Vol] 23 U/L Normal 13-75 [facility] Comment on above: Result Comment: Maldonado lopez note: LIPASE revised reference range effective 22. New Lipase methodology. Expected to produce lower values than the previous assay method. NEW Reference Range: 13 - 75 U/L Performed By: #### L 500.4050, L100.0100, L501.2450 ####[facility] [address] [place], [address] Lipase measurementOrdered By : Flower Arndt on 08-11-2024 Lipase [Catalytic activity/Vol] 23 U/L 13-75 [facility] Comment on above: Please note:LIPASE r evised reference range effective 22. New Lipase methodology. Expected to produce lower values than the previous assay method. NEW Reference Range: 13 - 75 U/L Lymphocytes Auto (Unsp spec) [#/Vol]Ordered By: Flower Arndt on 08-11-2024 Lymphocytes (Bld) [#/Vol] 2.53 10*3/uL 0.83-4.51 [facility] Lymphocytes/100 WBC Auto (Un sp spec)Ordered By: Flower Arndt on 08-11-2024 Lymphocytes/100 WBC (Bld) 40.4 % 19-41 [facility] MCV (mean corpuscular volume ) determinationOrdered By: Flower Arndt on 08-11-2024 MCV (RBC) [Entitic vol] 87.8 fL 81-99 [facility] Mean corpuscular hemoglobin (MCH) determinationOrdered By: Flower Arndt on 08-11-2024 MCH (RBC) [Entitic mass] 28.9 pg 27.0-32.0 [facility] Mean corpuscular hemoglobin concentration (MCHC) determinationOrdered By: Flower Arntd on 08-11-2024 MCHC (RBC) [Mass/Vol] 32.9 g/dL 32-36 [facility] Mean platelet volume determi nationOrdered By: Flower Arndt on 08-11-2024 Platelet mean volume (Bld) [Entitic vol] 10.6 fL 6.2-12.0 [facility] Microscopic analysis of urin e for red blood cells (RBC)Ordered By: Flower Arndt on 08-11-2024 Microscopic analysis of urine for red blood cells (RBC) 0-5 SEEN /hpf 0-5 [facility] Urine RBC 0-5 SEEN /hpf 0-5 [facility] Monocyte percentageOrdered B y: Flower Arndt on 08-11-2024 Monocytes/100 WBC (Bld) 9.7 % 0-10 [facility] Mucus LM Ql (Urine sed)Order ed By: Flower Arndt on 08-11-2024 Mucus Ql (Urine sed) 0 SEEN /hpf [facility] Neutrophil percentageOrdered By: Flower Arndt on 08-11-2024 Neutrophils/100 WBC (Bld) 47.0 % 47-70 [facility] Nitrite Test strip Ql (U)Ord ered By: Flower Arndt on 08-11-2024 Nitrite Ql (U) Negative Negative [facility] Nucleated red blood cell per centageOrdered By: Flower Arndt on 08-11-2024 Nucleated RBC/100 WBC (Bld) [Ratio] 0 % 0-5 [facility] Platelet countOrdered By: Charly Arndt on 08-11-2024 Platelets (Bld) [#/Vol] 291 10*3/uL 150-450 [facility] Potassium (Unsp spec) [Mass/ Vol]Ordered By: Flower Arndt on 08-11-2024 Potassium [Moles/Vol] 3.8 mmol/L 3.3-5.1 [facility] Potassium measurement (mass/ volume)Ordered By: Flower Arndt on 08-11-2024 Potassium (Unsp spec) [Mass/Vol] 3.8 mmol/L 3.3-5.1 [facility] Protein Test strip Ql (U)Ord ered By: Flower Arndt on 08-11-2024 Protein Ql (U) 15 mg/dl High Negative [facility] RBC Auto (Bld) [#/Vol]Ordere d By: Flower Arndt on 08-11-2024 RBC (Bld) [#/Vol] 4.77 10*6/uL 4.2-5.4 [facility] Serum creatinine measurement (mass/volume)Ordered By: Flower Arndt on 08-11-2024 Creatinine [Mass/Vol] 0.63 mg/dL Low 0.70-1.20 [facility] Serum globulin measurementOr dered By: Flower Arndt on 08-11-2024 Globulin (S) [Mass/Vol] 2.5 g/dL 2.2-4.2 [facility] Serum glucose measurement (m ass/volume)Ordered By: Flower Arndt on 08-11-2024 Glucose [Mass/Vol] 110 mg/dL High 70-99 [facility] Serum or plasma alanine taylor otransferase (ALT) measurementOrdered By: Flower Arndt on 08-11-2024 ALT [Catalytic activity/Vol] 19 U/L <35 [facility] Serum or plasma albumin yakelin urement (mass/volume)Ordered By: Flower Arndt on 08-11-2024 Albumin [Mass/Vol] 4.4 g/dL 3.4-4.8 [facility] Serum or plasma albumin/glob ulin mass ratioOrdered By: Flower Arndt on 08-11-2024 Albumin/Globulin [Mass ratio] 1.8 {ratio} 0.9-2.4 [facility] Serum or plasma alkaline shanita sphatase measurementOrdered By: Flower Arndt on 08-11-2024 ALP [Catalytic activity/Vol] 69 U/L 35-104 [facility] Serum or plasma calcium yakelin urement (mass/volume)Ordered By: Flower Arndt on 08-11-2024 Calcium [Mass/Vol] 9.7 mg/dL 7.6-11.0 [facility] Serum or plasma urea nitroge n measurement (mass/volume)Ordered By: Flower Arndt on 08-11-2024 Urea nitrogen [Mass/Vol] 11 mg/dL 4-19 [facility] Sodium levelOrdered By: Omari Arndt on 08-11-2024 Sodium [Moles/Vol] 136 mmol/L 133-145 [facility] Squamous epithelial cells de tection in urine sediment by light microscopyOrdered By: Flower Arndt on 08-11-2024 Epithelial cells.squamous LM Ql (Urine sed) 0 SEEN /hpf 5-10 [facility] Total proteinOrdered By: Alta Arndt on 08-11-2024 Protein [Mass/Vol] 7.0 g/dL 5.9-8.4 [facility] Transitional cells LM Ql (Ur ine sed)Ordered By: Flower Arndt on 08-11-2024 Urine Transitional Epithelial Cells 0-5 SEEN /hpf 0-5 [facility] Transitional cells detection in urine sediment by light microscopyOrdered By: Flower Arndt on 08-11-2024 Transitional cells LM Ql (Urine sed) 0-5 SEEN /hpf 0-5 [facility] Urinalysis, Completeon 08-11 EPI,TRANSITION 0-5 SEEN Normal 0-5 [facility] Comment on above: Order Comment: CLEAN CATCH Performed By: #### L 400.0001 #### [facility] Laboratory [facility] [place], [address] RBC 0-5 SEEN Normal 0-5 [facility] Comment on above: Order Comment: CLEAN CATCH Performed By: #### L 400.0001 #### [facility] [address] [place], [address] WBC 0-5 SEEN Normal 0-5 [facility] Comment on above: Order Comment: CLEAN CATCH Performed By: #### L 400.0001 #### [facility] [address] [place], [address] BACTERIA 0 SEEN Normal None Seen [facility] Comment on above: Order Comment: CLEAN CATCH Performed By: #### L 400.0001 #### [facility] [address] [place], [address] EPI,SQUAMOUS 0 SEEN Normal 5-10 [facility] Comment on above: Order Comment: CLEAN CATCH Performed By: #### L 400.0001 #### [facility] [address] [place], [address] Mucus Ql (Urine sed) 0 SEEN Normal [facility] Comment on above: Order Comment: CLEAN CATCH Performed By: #### L 400.0001 #### [facility] [address] [place], [address] Urine blood detectionOrdered By: Flower Arndt on 08-11-2024 Urine Occult Blood 25 /ul High Negative [facility] Urine clarityOrdered By: Alta Arndt on 08-11-2024 Clarity (U) Clear Clear [facility] Urine color determinationOrd ered By: Flower Arndt on 08-11-2024 Color (U) Yellow Yellow [facility] Urine glucose detectionOrder ed By: Flower Arndt on 08-11-2024 Glucose Ql (U) Normal mg/dl Normal [facility] Urine leukocyte esterase det ection by dipstickOrdered By: Flower Arndt on 08-11-2024 Leukocyte esterase Test strip Ql (U) Negative Negative [facility] Urine pHOrdered By: Flower mejía on 08-11-2024 pH (U) 7.0 [pH] 5.0 - 8.0 [facility] Urine sediment bacteria coun t by microscopy (number/high power field)Ordered By: Flower Arndt on 08-11-2024 Bacteria LM.HPF (Urine sed) [#/Area] 0 /[HPF] None Seen [facility] Urine specific gravity measu rementOrdered By: Flower Arndt on 08-11-2024 Specific gravity (U) [Rel density] 1.010 1.002-1.03 0 [facility] Urine urobilinogen measureme ntOrdered By: Flower Arndt on 08-11-2024 Urobilinogen Ql (U) Normal mg/dl Normal [facility] Urobilinogen Ql (U)Ordered B y: Flower Arndt on 08-11-2024 Urine Urobilinogen Normal mg/dl Normal [facility] White blood cell (WBC) count Ordered By: Flower Arndt on 08-11-2024 WBC (Bld) [#/Vol] 6.3 10*3/uL 4.4-11.0 [facility] White blood cell countOrdere d By: Flower Arndt on 08-11-2024 Urine WBC 0-5 SEEN /hpf 0-5 [facility] White blood cell count 0-5 SEEN /hpf 0-5 [facility] Cerv Spine 4 or 5 Viewson Cerv Spine [address] [facility] [address] [place] [address] Cerv Spine 4 or 5 Views MR#: [id number] Acct: [id number] Name: BOB MCKENNA Rep #: [id number] : 1940 F 84 From: Estevan Rider MD PCP: Dr. Lizzette Apple, DO Status: [facility] Study: Cerv Spine 4 or 5 Views Date of Exam: 06/12/24 Exam# [id number] Ordering Dr: Brien Ocampo MD [id number] PROCEDURE: Cervical facet block, right-sided C3-C6 DATE OF EXAMINATION: 06/12/2024 INDICATION: Female, 84 years old. Neck pain and headache PHYSICIAN: Brien Ocampo MD FLUOROSCOPY TIME (if supplied): (7) seconds, 4 images RADIATION DOSAGE (If Supplied By Facility): CTDIvol = ( 0.83 ) mGy, DLP = ( ) mGycm CONSENT: The risks, benefits and alternatives to the procedure were explained to the patient, and the patient agreed to the procedure and signed the consent. 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 PROCEDURE/TECHNIQUE: (All elements of maximal sterile barrier technique followed, including US elements as applicable) The risks, benefits, and alternatives to the procedure were explained to patient, and the patient agreed to the procedure and signed a consent form for the procedure. A timeout was performed to confirm the patient''s identity, the type of procedure, to be performed and the site of entry. Fluoroscopy provided for right-sided facet block between C3 and C6. No complications RAD/Cerv Spine 4 or 5 Views IMPRESSION: No complications noted during right-sided C3-C6 facet block Electronically Signed: Nicko Rider MD at 13:08 EST Reading Location ID and State: [address] [place] [address] , Service support , CC: Dr. Brien Ocampo MD; Dr. Lizzette Apple DO Closer On: Signed [facility] MR/POSTOP.Ronald 06-12-2024 MR/POSTOP.[facility] Medical Records Department [address] [place] [address] Anesthesia Postop Eval I 06/12/24 1025 MR#: [id number] Acct: [id number] Name: BOB MCKENNA Rep #: [id number] : 1940 84 From: Juan Mosley CRNA PCP: Dr. Lizzette Apple, DO Status:REG SDC Y Race: C Location: [place] [address] Anesthesia: Postop Eval I Current Vital Signs Temperature: 97.8 F Pulse Rate: 66 Blood Pressure: 133/63 Respiratory Rate: 15 Pulse Ox: 97 Oxygen Delivery Method: Room Air Assessment Airway patent: Yes Spontaneous unlabored respirations: Yes Mental status: Awake and Calm nausea: No Vomiting: No Anesthesia Complication: No Fluid Hydration Crystalloid volume administer (ml): 30 Total IV fluid infused: 30 Progress Note Anesthesia document: Postop Eval 1 completed: Yes 06/12/24 1027 Date Juan Dimitri ANALYSIS EVALUATOR Cosigner Signature: Date CC: Signed Normal [facility] MR/NHBIJOOU2yc 06-12-2024 MR/POSTOPAN2 [facility] Medical Records Department [address] [place] [address] Anesthesia Postop Eval II 06/12/24 1044 MR#: [id number] Acct: [id number] Name: BOB MCKENNA Rep #: [id number] : 1940 84 From: Jim Jimenez MD PCP: Dr. Lizzette Apple, DO Status:REG SDC Y Race: C Location: [address] Anesthesia Postop Eval I Sum Postop Eval Completion status Anesthesia document: Postop Eval 1 completed: Yes Anesthesia Postop Eval I Summary Anesthesia Postop Eval I Summary: Anesthesia Postop Eval I: Assessment Summary Airway patent Yes 06/12/24 10:27 ANALYSIS [email or web address] Spontaneous unlabored Yes 06/12/24 10:27 ANALYSIS [email or web address] respirations Mental status Awake,Calm 06/12/24 10:27 ANALYSIS [email or web address] nausea No 06/12/24 10:27 ANALYSIS [email or web address] Vomiting No 06/12/24 10:27 ANALYSIS [email or web address] Anesthesia Postop Eval I: Fluid Summary Crystalloid volume administer 30 01/06/25 10:27 ANALYSIS [email or web address] (ml) Colloids volume administered ( ml) Blood Product volume administered (ml) Total IV fluid infused 30 06/12/24 10:27 ANALYSIS [email or web address] Anesthesia Postop Eval I: Summary Notes Anesthesia Complication No 06/12/24 10:27 ANALYSIS [email or web address] Anesthesia Complication Comment: Post-operative progress note Anesthesia: Postop Eval II Evaluation Mental status: Awake Pain Level: 0 nausea: No Vomiting: No 06/12/24 1044 Date Jim Toth Signature: Date CC: Signed Normal [facility] Operative Reporton 5 Operative Report [facility] Medical Records Department [address] [place] [address] Operative Report 06/12/24 1006 MR#: [id number] Acct: [id number] Name: BOB MCKENNA Rep #: [id number] : 1940 84 From: Brien Ocampo MD PCP: Dr. 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 tool: No Type of Anesthesia: MAC and Topical Anesth RN Documented Start/Stop Times: Operation Date: 06/12/24 09:40 Case Time Into Pre-Op 06/12/24 08:28 Out of Pre-Op 06/12/24 09:49 Anesthesia Start 06/12/24 09:55 Into Room 06/12/24 09:55 Procedure Start 06/12/24 10:00 Procedure End 06/12/24 10:02 Anesthesia End 06/12/24 10:04 Into Recovery 06/12/24 10:04 Out of Room 06/12/24 10:04 Procedure Start Time: 10:06 Procedure Stop Time: 10:06 Select all DRAINS/GRAFTS/IMPLANTS that apply: None Estimated Blood Loss: 1 Specimen collected: No Description of surgery: PREOPERATIVE DIAGNOSIS: Cervical spondylosis, cervical degenerative disc disease, cervical facet arthropathy POSTOPERATIVE DIAGNOSIS:Cervical spondylosis, cervical degenerative disc disease, cervical facet arthropathy PROCEDURE PERFORMED: Right sided cervical facet steroid injection at C3, C4, C5, and C6. ANESTHESIA: MAC. BLOOD LOSS: Minimal. COMPLICATIONS: None. DESCRIPTION OF PROCEDURE: History and physical of today was reviewed. Risks and benefits of the procedure were explained. The patient understood and agreed to proceed. Informed consent was obtained. IV inserted per routine protocol. The patient was taken to the operating room and placed in the prone position with a pillow positioned underneath the chest. The neck area was prepped and draped in a sterile fashion using iodine x3. Under fluoroscopy guidance on an AP view, the C3 through C6 vertebral bodies were visualized at approximately 10-degree angle, starting on the right C3, ending on the right C6, passing through the C4 and C5. Using a 25-gauge 3-1/2-inch spinal needle, the needle was advanced via the skin. The tip of the needle was maneuvered and directed towards the epiphyseal junction of each corresponding vertebra. Once the tip of the needle was at the vicinity of the medial branch, the needle was pulled approximately 2 mm off the bone. After negative aspiration of blood or CSF and confirmation on AP, oblique as well as lateral view, a total of 4 mL of preservative-free 0.25% Marcaine with 80 mg of Depo-Medrol was injected in divided doses between those four levels. The needles were then removed intact. The patient experienced no sign or symptoms of intrathecal or intravascular injection. The patient experienced no paresthesia. The procedure was completed without any apparent difficulty or any complications. The patient appeared to tolerate it well. ASSESSMENT AND PLAN: This is an 84-year-old female with cervical spondylosis, cervicogenic disc disease, cervical facet arthropathy status post right-sided cervical facet steroid injection at C3-C6, patient will continue her current medications, patient will follow-up in approximately 1 to 2 weeks for reevaluation. Surgical Findings: 1 Complications Complications: No Admit VTE Documentation VTE Present on Admission: No VTE Mechan Device Prophylaxis: None VTE Pharm Prophylaxis ordered?: No 06/12/24 1008 Cosigner Signature (if applicable): CC: Dr. Brien Ocampo MD; Dr. Lizzette Apple DO Signed Normal [facility] Absolute neutrophil countOrd ered By: Shanell Ewelina on 05-29-2024 Neutrophils (Bld) [#/Vol] 4.7 10*3/uL 2.0-7.7 [facility] Albumin to globulin ratioOrd ered By: Gregorylivia Mclaughlin on 05-29-2024 Albumin/Globulin [Mass ratio] 1.2 {ratio} 0.9-2.4 [facility] Basophil percentageOrdered B y: Shanell Theodore on 05-29-2024 Basophils/100 WBC (Bld) 0.7 % 0-1 [facility] Bilirubin, totalOrdered By: Hortencia Mclaughlin on 05-29-2024 Bilirubin [Mass/Vol] 0.50 mg/dL 0.20-1.00 [facility] Comment on above: For patients on eltr ombopag therapy, use of Dimension Alba TBIL is not recommended. Blood urea nitrogen (BUN)/cr eatinine ratioOrdered By: Hortencia Mclaughlin on 05-29-2024 Urea nitrogen/Creatinine [Mass ratio] 15.3 mg/mg 10-20 [facility] CBC W/Diff, Automatedon 05-08 Absolute Lymph 2.61 X10 3/uL Normal 0.83-4.51 [facility] Comment on above: Performed By: #### L 100.0100 ####[facility] [address] [place], [address] Absolute Neut 4.7 X10 3/uL Normal 2.0-7.7 [facility] Comment on above: Performed By: #### L 100.0100 ####[facility] [address] [place], [address] Basophils/100 WBC (Bld) 0.7 % Normal 0-1 [facility] Comment on above: Performed By: #### L 100.0100 ####[facility] [address] [place], [address] Eosinophils/100 WBC (Bld) 2.0 % Normal 0-5 [facility] Comment on above: Performed By: #### L 100.0100 ####[facility] [address] [place], [address] Erythrocyte distribution width (RBC) [Ratio] 14.5 % Normal 11.6-14.6 [facility] Comment on above: Performed By: #### L 100.0100 ####[facility] [address] [place], [address] Hematocrit (Bld) [Volume fraction] 34.4 % Low 37-47 [facility] Comment on above: Performed By: #### L 100.0100 ####[facility] [address] [place], [address] Hemoglobin (Bld) [Mass/Vol] 11.1 g/dL Low 12.0-15.0 [facility] Comment on above: Performed By: #### L 100.0100 ####[facility] [address] [place], [address] IG% 1.300 High 0.0-0.9 [facility] Comment on above: Result Comment: IG% - Immature Granulocytes (promyelocytes, myelocytes and metamyelocytes) > 1% indicates that a LEFT SHIFT is Present. Performed By: #### L 100.0100 ####[facility] [address] [place], [address] Lymphocytes/100 WBC (Bld) 30.6 % Normal 19-41 [facility] Comment on above: Performed By: #### L 100.0100 ####[facility] [address] [place], [address] MCH (RBC) [Entitic mass] 29.3 pg Normal 27.0-32.0 [facility] Comment on above: Performed By: #### L 100.0100 ####[facility] [address] [place], [address] MCHC (RBC) [Mass/Vol] 32.3 g/dL Normal 32-36 [facility] Comment on above: Performed By: #### L 100.0100 ####[facility] [address] [place], [address] MCV (RBC) [Entitic vol] 90.8 fL Normal 81-99 [facility] Comment on above: Performed By: #### L 100.0100 ####[facility] [address] [place], [address] Monocytes/100 WBC (Bld) 10.0 % Normal 0-10 [facility] Comment on above: Performed By: #### L 100.0100 ####[facility] [address] [place], [address] Neutrophils/100 WBC (Bld) 55.4 % Normal 47-70 [facility] Comment on above: Performed By: #### L 100.0100 ####[facility] [address] [place], [address] Nucleated RBC (Bld) [#/Vol] 0 10*3/uL Normal 0-5 [facility] Comment on above: Performed By: #### L 100.0100 ####[facility] [address] [place], [address] Platelet mean volume (Bld) [Entitic vol] 9.6 fL Normal 6.2-12.0 [facility] Comment on above: Performed By: #### L 100.0100 ####[facility] [address] [place], [address] Platelets (Bld) [#/Vol] 291 10*3/uL Normal 150-450 [facility] Comment on above: Performed By: #### L 100.0100 ####[facility] [address] [place], [address] RBC (Bld) [#/Vol] 3.79 10*6/uL Low 4.2-5.4 [facility] Comment on above: Performed By: #### L 100.0100 ####[facility] [address] [place], [address] RDW SD 48.4 fl High 35.1-43.9 [facility] Comment on above: Performed By: #### L 100.0100 ####[facility] [address] [place], [address] WBC (Bld) [#/Vol] 8.5 10*3/uL Normal 4.4-11.0 [facility] Comment on above: Performed By: #### L 100.0100 ####[facility] [address] [place], [address] Carbon dioxide measurementOr dered By: Hortencia Mclaughlin on 05-29-2024 CO2 [Moles/Vol] 27.0 mmol/L 21.0-32.0 [facility] Chloride measurementOrdered By: Hortencia Mclaughlin on 05-29-2024 Chloride [Moles/Vol] 100 mmol/L 98-107 [facility] Comprehensive Metabolic Prof ilon 05-29-2024 Albumin [Mass/Vol] 3.5 g/dL Normal 3.2-5.0 [facility] Comment on above: Order Comment: 1 Performed By: #### L 504.2610, L500.4050 #### [facility] [address] [place], [address] Albumin/Globulin [Mass ratio] 1.2 {ratio} Normal 0.9-2.4 [facility] Comment on above: Order Comment: 1 Performed By: #### L 504.2610, L500.4050 #### [facility] [address] [place], [address] ALK P 67 U/L Normal 45-117 [facility] Comment on above: Order Comment: 1 Performed By: #### L 504.2610, L500.4050 #### [facility] [address] [place], [address] ALT [Catalytic activity/Vol] 21 U/L Normal 13-56 [facility] Comment on above: Order Comment: 1 Performed By: #### L 504.2610, L500.4050 #### [facility] [address] [place], [address] AST [Catalytic activity/Vol] 17 U/L Normal 15-37 [facility] Comment on above: Order Comment: 1 Performed By: #### L 504.2610, L500.4050 #### [facility] [address] [place], [address] Bilirubin [Mass/Vol] 0.50 mg/dL Normal 0.20-1.00 [facility] Comment on above: Order Comment: 1 Result Comment: For patients on eltrombopag therapy, use of Dimension Alba TBIL is not recommended. Performed By: #### L 504.2610, L500.4050 #### [facility] [address] [place], [address] BUN/CRE 15.3 RATIO Normal 10-20 [facility] Comment on above: Order Comment: 1 Performed By: #### L 504.2610, L500.4050 #### [facility] [address] [place], [address] CA,Total 8.9 mg/dL Normal 8.5-10.1 [facility] Comment on above: Order Comment: 1 Performed By: #### L 504.2610, L500.4050 #### [facility] [address] [place], [address] Chloride [Moles/Vol] 100 mmol/L Normal 98-107 [facility] Comment on above: Order Comment: 1 Performed By: #### L 504.2610, L500.4050 #### [facility] [address] [place], [address] CO2 [Moles/Vol] 27.0 mmol/L Normal 21.0-32.0 [facility] Comment on above: Order Comment: 1 Performed By: #### L 504.2610, L500.4050 #### [facility] [address] [place], [address] Creatinine [Mass/Vol] 0.52 mg/dL Low 0.55-1.02 [facility] Comment on above: Order Comment: 1 Result Comment: The validity of the calculated GFR GFRAA in patients over 70 years has not been determined. Clinical correlation is essential. Performed By: #### L 504.2610, L500.4050 #### [facility] [address] [place], [address] ECRCL 42.53 ml/min Normal [facility] Comment on above: Order Comment: 1 Performed By: #### L 504.2610, L500.4050 #### [facility] [address] [place], [address] EST GFR - AA 143 mL/min Normal >60 [facility] Comment on above: Order Comment: 1 Result Comment: Afri can Albanian GFR Calc Performed By: #### L 504.2610, L500.4050 #### [facility] [address] [place], [address] GAP 7 Normal 5-15 [facility] Comment on above: Order Comment: 1 Performed By: #### L 504.2610, L500.4050 #### [facility] [address] [place], [address] GFR/1.73 sq M.predicted among non-blacks MDRD (S/P/Bld) [Vol rate/Area] 118 mL/min/{1.73_m2} Normal >60 [facility] Comment on above: Order Comment: 1 Result Comment: Non- GFR Calc Performed By: #### L 504.2610, L500.4050 #### [facility] [address] [place], [address] Globulin (S) [Mass/Vol] 2.8 g/dL Normal 2.2-4.2 [facility] Comment on above: Order Comment: 1 Performed By: #### L 504.2610, L500.4050 #### [facility] [address] [place], [address] Glucose [Mass/Vol] 99 mg/dL Normal 74-106 [facility] Comment on above: Order Comment: 1 Performed By: #### L 504.2610, L500.4050 #### [facility] [address] [place], [address] Potassium [Moles/Vol] 3.6 mmol/L Normal 3.5-5.1 [facility] Comment on above: Order Comment: 1 Performed By: #### L 504.2610, L500.4050 #### [facility] [address] [place], [address] Sodium [Moles/Vol] 134 mmol/L Low 136-145 [facility] Comment on above: Order Comment: 1 Performed By: #### L 504.2610, L500.4050 #### [facility] [address] [place], [address] T PROT 6.3 g/dL Low 6.4-8.2 [facility] Comment on above: Order Comment: 1 Performed By: #### L 504.2610, L500.4050 #### [facility] [address] [place], [address] Urea nitrogen [Mass/Vol] 8 mg/dL Normal 7-18 [facility] Comment on above: Order Comment: 1 Performed By: #### L 504.2610, L500.4050 #### [facility] [address] [place], [address] Eosinophil percentageOrdered By: Shanell Theodore on 05-29-2024 Eosinophils/100 WBC (Bld) 2.0 % 0-5 [facility] Erythrocyte distribution wid th ratioOrdered By: Shanell Theodore on 05-29-2024 Erythrocyte distribution width (RBC) [Ratio] 14.5 % 11.6-14.6 [facility] Erythrocyte distribution wid th standard deviationOrdered By: Shanell Theodore on 05-29-2024 Erythrocyte distribution width (RBC) [Entitic vol] 48.4 fL High 35.1-43.9 [facility] Estimated glomerular filtrat ion rate (GFR) AmericanOrdered By: Hortencia Mclaughlin on 05-29-2024 Estimated GFR (MDRD) Amer 143 mL/min >60 [facility] Comment on above: GFR Calc Estimation of creatinine shemar aranceOrdered By: Hortencia Mclaughlin on 05-29-2024 Estimated Creatinine Clearance Calc 42.53 ml/min [facility] Glomerular filtration rate ( GFR) estimationOrdered By: Hortencia Mclaughlin on 05-29-2024 Estimated GFR (MDRD) Non-Af Amer 118 mL/min >60 [facility] Comment on above: Non- GFR Calc Glucose measurementOrdered B y: Hortencia Mclaughlin on 05-29-2024 Glucose [Mass/Vol] 99 mg/dL 74-106 [facility] Hematocrit Auto (Bld) [Volum e fraction]Ordered By: Shanell Theodore on 05-29-2024 Hematocrit (Bld) [Volume fraction] 34.4 % Low 37-47 [facility] Hemoglobin measurementOrdere d By: Shanell Theodore on 05-29-2024 Hemoglobin (Bld) [Mass/Vol] 11.1 g/dL Low 12.0-15.0 [facility] Immature granulocytes/100 WB C Auto (Bld)Ordered By: Shanell Theodore on 05-29-2024 Immature granulocytes/100 WBC (Bld) 1.300 % High 0.0-0.9 [facility] Comment on above: IG% - Immature Granu locytes (promyelocytes, myelocytes and metamyelocytes) > 1% indicates that a LEFT SHIFT is Present. LDHon 05-29-2024 LDH 182 U/L Normal 84-246 [facility] Comment on above: Order Comment: 1 Performed By: #### L 504.2610, L500.4050 #### [facility] [address] [place], [address] Laboratory - Chemistry and C hemistry - challengeOrdered By: Hortencia Mclaughlin on 05-29-2024 AST [Catalytic activity/Vol] 17 U/L 15-37 [facility] Lactate dehydrogenase (LDH) measurementOrdered By: [facility] on 05-29-2024 LDH [Catalytic activity/Vol] 182 U/L 84-246 [facility] Lymphocytes Auto (Unsp spec) [#/Vol]Ordered By: Shanell Theodore on 05-29-2024 Lymphocytes (Bld) [#/Vol] 2.61 10*3/uL 0.83-4.51 [facility] Lymphocytes/100 WBC Auto (Un sp spec)Ordered By: Shanell Theodore on 05-29-2024 Lymphocytes/100 WBC (Bld) 30.6 % 19-41 [facility] MCV (mean corpuscular volume ) determinationOrdered By: Shanell Theodore on 05-29-2024 MCV (RBC) [Entitic vol] 90.8 fL 81-99 [facility] Mean corpuscular hemoglobin (MCH) determinationOrdered By: Shanell Theodore on 05-29-2024 MCH (RBC) [Entitic mass] 29.3 pg 27.0-32.0 [facility] Mean corpuscular hemoglobin concentration (MCHC) determinationOrdered By: Shanell Theodore on 05-29-2024 MCHC (RBC) [Mass/Vol] 32.3 g/dL 32-36 [facility] Mean platelet volume determi nationOrdered By: Shanell Theodore on 05-29-2024 Platelet mean volume (Bld) [Entitic vol] 9.6 fL 6.2-12.0 [facility] Monocyte percentageOrdered B y: Shanell Theodore on 05-29-2024 Monocytes/100 WBC (Bld) 10.0 % 0-10 [facility] Neutrophil percentageOrdered By: Shanell Theodore on 05-29-2024 Neutrophils/100 WBC (Bld) 55.4 % 47-70 [facility] Nucleated red blood cell per centageOrdered By: Shanell Theodore on 05-29-2024 Nucleated RBC/100 WBC (Bld) [Ratio] 0 % 0-5 [facility] Oncology Visit Reporton 05-08 Oncology Visit Report [facility] [address] [place] [address] OFFICE VISIT Date of Service: 05/29/24 1320 MR#: [id number] Acct: [id number] Name: BOB MCKENNA Rep #: [id number] : 1940 From: Shanell Theodore 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 She has had no B symptoms. In July 2022 she suffered from COVID infection. She was not fully vaccinated Her family history is notable for mother and sister with leukemias. Her mother lived for several years without any treatment for her leukemia presumably a chronic. CBCs from August 2022 and April 2020 show an absolute lymphocytosis with normal hemoglobin and platelet counts. August 07, 2022 CT neck ([facility]): Bilateral cervical, superior mediastinal and axillary lymphadenopathy. August 26, 2022 CT chest abdomen and pelvis: IMPRESSION: Enlarged bilateral subclavicular and axillary lymph nodes. Enlarged retroperitoneal lymphadenopathy. No splenomegaly. August 18, 2022 peripheral blood: Flow cytometry: Chronic lymphocytic leukemia, CD20, 22, and 19 positive negative CD38. FISH panel: Trisomy 12 and loss of 1T p53 signal. CCND1/IGH, 13q, and NIC were normal. Treatment summary and response: Zanubrutinib March 22, 2023 OR Interval History The patient is presenting to clinic for a 12 week follow-up. admits she is only taking zanubrutinib 80 mg twice daily (160 mg BID is advised) Estimates 64 oz PO fluid intake daily. Appetite good. Specifically denies any reoccurrence of pruritic rash, dysphagia, headaches, cough, shortness of breath, chest pain, palpitations, diarrhea, nausea, easy bruising, abdominal pain episodes of bleeding or abnormal bruising, and swelling pain of her extremities. PFSH Medical History Metabolic encephalopathy Adverse drug reaction Dehydration Hypokalemia Acute hyponatremia Retroperitoneal lymphadenopathy Abdominal pain Depression Back pain Constipation Wears hearing aid Wears glasses Cancer Thyroid disease Walker as ambulation aid High cholesterol Non-smoker Leg cramps History of echocardiogram History of stress test Cardiology follow-up encounter Cholinesterase deficiency Encounter for education Anemia CLL (chronic lymphocytic leukemia) Hypothyroidism Vertigo Varicose veins of legs Supraclavicular mass Supraclavicular lymphadenopathy Skin lesion of face Skin lesion of neck Stress incontinence Psoriasis Osteoporosis Mitral valve prolapse Low back pain with right-sided sciatica Hyperlipidemia High blood pressure Hematuria Surgical History Hx of kyphoplasty S/P abdominal hysterectomy H/O umbilical hernia repair History of tonsillectomy S/P appendectomy Family History Brother CAD (coronary artery disease) Cancer Hyperlipemia Mother Cancer Leukemia Sister Cancer Sarcoma Social History household members: none housing: house Smoking Status: Never smoker alcohol intake: never substance use type: does not use ROS ROS Narrative Negative except as documented in the interval HPI Intake Vital Signs 04/28/24 09:41 05/29/24 13:21 Height 5 ft 2 in 5 ft 2 in Weight: 180 lb 122 lb BMI 32.9 22.3 BP 132/74 H Blood Pressure Location Lt brachial Position Sitting Respiration 16 Pulse 69 Pulse Source Monitor Temp 97.4 F L Temperature Source Temporal Artery Pulse Oximetry (%) 100 Oxygen Delivery Method room air Intake Accompanied by: Self Is patient in pain?: No (occ lower abdominal pain) Allergies No Known Allergies Allergy (Verified 05/29/24 13:26) Medications ???Medication ???Instructions ???Recorded ???Confirmed ???Type ascorbic acid (vitamin C) 100 mg 100 mg PO DAILY 08/14/22 05/29/24 History tablet calcium carbonate 600 mg PO BID 08/14/22 05/29/24 History cholecalciferol (vitamin D3) 10 10 mcg PO DAILY 08/14/22 05/29/24 History mcg (400 unit) capsule lutein 20 mg capsule 20 mg PO DAILY 08/14/22 05/29/24 History magnesium carbonate 1 cap PO DAILY 08/18/22 05/29/24 History mecobalamin (vitamin B12) 1,000 1,000 mcg PO Q OTHER DAY 03/01/23 05/29/24 History mcg lozenges levothyroxine 88 mcg capsule 88 mcg PO DAILY 06/01/23 05/29/24 History Disability Placard #1 ea 09/07/23 05/29/24 Rx disability placard #1 ea 01/03/24 05/29/24 Rx losartan 50 mg tablet 50 mg PO QHS 01/03/24 05/29/24 (more content not included)... Normal [facility] Platelet countOrdered By: Nahid Theodore on 05-29-2024 Platelets (Bld) [#/Vol] 291 10*3/uL 150-450 [facility] Potassium measurementOrdered By: Hortencia Mclaughlin on 05-29-2024 Potassium [Moles/Vol] 3.6 mmol/L 3.5-5.1 [facility] RBC Auto (Bld) [#/Vol]Ordere d By: Shanell Theodore on 05-29-2024 RBC (Bld) [#/Vol] 3.79 10*6/uL Low 4.2-5.4 [facility] Serum anion gap measurementO rdered By: Hortencia Mclaughlin on 05-29-2024 Anion gap [Moles/Vol] 7 mmol/L 5-15 [facility] Serum globulin measurementOr dered By: Hortencia Mclaughlin on 05-29-2024 Globulin (S) [Mass/Vol] 2.8 g/dL 2.2-4.2 [facility] Serum or plasma alanine taylor otransferase (ALT) measurementOrdered By: Hortencia Mclaughlin on 05-29-2024 ALT [Catalytic activity/Vol] 21 U/L 13-56 [facility] Serum or plasma albumin yakelin urement (mass/volume)Ordered By: Hortencia Lissette on 05-29-2024 Albumin [Mass/Vol] 3.5 g/dL 3.2-5.0 [facility] Serum or plasma alkaline shanita sphatase measurementOrdered By: Hortencia Lissette on 05-29-2024 ALP [Catalytic activity/Vol] 67 U/L 45-117 [facility] Serum or plasma calcium yakelin urement (mass/volume)Ordered By: Hortencia Lissette on 05-29-2024 Calcium [Mass/Vol] 8.9 mg/dL 8.5-10.1 [facility] Serum or plasma creatinine m easurement (mass/volume)Ordered By: Hortencia Lissette on 05-29-2024 Creatinine [Mass/Vol] 0.52 mg/dL Low 0.55-1.02 [facility] Comment on above: The validity of the calculated GFR & GFRAA in patients over 70 years has not been determined. Clinical correlation is essential. Serum or plasma urea nitroge n measurement (mass/volume)Ordered By: Hortencia Lissette on 05-29-2024 Urea nitrogen [Mass/Vol] 8 mg/dL 7-18 [facility] Sodium levelOrdered By: Gregory bhakta Lissette on 05-29-2024 Sodium [Moles/Vol] 134 mmol/L Low 136-145 [facility] Total proteinOrdered By: Altaf escalante Lissette on 05-29-2024 Protein [Mass/Vol] 6.3 g/dL Low 6.4-8.2 [facility] White blood cell (WBC) count Ordered By: Shanell Theodore on 05-29-2024 WBC (Bld) [#/Vol] 8.5 10*3/uL 4.4-11.0 [facility] Cerv Spine 4 or 5 Viewson Cerv Spine 4 or 5 Views [facility] [address] [place] [address] Cerv Spine 4 or 5 Views MR#: [id number] Acct: [id number] Name: BOB MCKENNA Rep #: [id number] : 1940 F 84 From: Estevan Rider MD PCP: Dr. Lizzette Apple DO Status: DEP AMB Study: Cerv Spine 4 or 5 Views Date of Exam: 04/28/24 Exam# [id number] Ordering Dr: Joyce Aparicio [id number] STUDY: X-RAY - CERVICAL SPINE REASON FOR EXAM: Female, 84 years old. Neck pain and headache TECHNIQUE: 4 view(s) of the cervical spine were obtained. COMPARISON: None FINDINGS: Normal anterior atlantoaxial articulation. Normal odontoid process. There is straightening of the normal cervical lordosis. There is diffuse demineralization of the cervical spine. There is multi-level degenerative disc disease with multilevel disc space narrowing. No demonstrated fracture or instability The soft tissue structures are unremarkable. RAD/Cerv Spine 4 or 5 Views IMPRESSION: Multilevel degenerative changes, no acute findings No demonstrated instability Electronically Signed: Nicko Rider MD at 15:54 EST Reading Location ID and State: [facility] / [place] , Service support , CC: ROBERT Maxwell; Dr. Lizzette Apple DO Closer On: Signed Normal [facility] Orthopedic Visit Reporton Orthopedic Visit Report [facility] [address] [place] [address] OFFICE VISIT Date of Service: 04/28/24 MR#: [id number] Acct: [id number] Name: BOB MCKENNA Rep #: [id number] : 1940 Provider: ROBERT Maxwell Age/Sex: 84/F Location: [facility] Status: Signed Intake Vital Signs 04/02/24 10:25 04/28/24 09:41 Height 5 ft 2 in 5 ft 2 in Weight: 180 lb BMI 32.9 Intake Visit Reasons: CERVICAL SPINE Chief Complaint: Cervical spine Is patient in pain?: Yes (Cervical spine) Pain scale (1-10): 3 Allergies No Known Allergies Allergy (Verified 04/28/24 09:42) Medications ???Medication ???Instructions ???Recorded ???Confirmed ???Type ascorbic acid (vitamin C) 100 mg 100 mg PO DAILY 08/14/22 04/28/24 History tablet calcium carbonate 600 mg PO BID 08/14/22 04/28/24 History cholecalciferol (vitamin D3) 10 10 mcg PO DAILY 08/14/22 04/28/24 History mcg (400 unit) capsule lutein 20 mg capsule 20 mg PO DAILY 08/14/22 04/28/24 History magnesium carbonate 1 cap PO DAILY 08/18/22 04/28/24 History mecobalamin (vitamin B12) 1,000 1,000 mcg PO Q OTHER DAY 03/01/23 04/28/24 History mcg lozenges levothyroxine 88 mcg capsule 88 mcg PO DAILY 06/01/23 04/28/24 History Disability Placard #1 ea 09/07/23 03/23/24 Rx disability placard #1 ea 01/03/24 03/23/24 Rx losartan 50 mg tablet 50 mg PO QHS 01/03/24 04/28/24 History lactulose 20 gram/30 mL oral 20 g (30 mL) PO BID #1,500 mL 04/03/24 04/28/24 Rx solution zanubrutinib 80 mg capsule 160 mg (2 x 80 mg) PO BID 30 days 04/06/24 04/28/24 Rx #120 caps gabapentin 100 mg capsule 100 mg PO QDAY 04/28/24 04/28/24 History Have you fallen in the past year?: No PFSH Medical History Metabolic encephalopathy Adverse drug reaction Dehydration Hypokalemia Acute hyponatremia Retroperitoneal lymphadenopathy Abdominal pain Depression Back pain Constipation Wears hearing aid Wears glasses Cancer Thyroid disease Walker as ambulation aid High cholesterol Non-smoker Leg cramps History of echocardiogram History of stress test Cardiology follow-up encounter Cholinesterase deficiency Encounter for education Anemia CLL (chronic lymphocytic leukemia) Hypothyroidism Vertigo Varicose veins of legs Supraclavicular mass Supraclavicular lymphadenopathy Skin lesion of face Skin lesion of neck Stress incontinence Psoriasis Osteoporosis Mitral valve prolapse Low back pain with right-sided sciatica Hyperlipidemia High blood pressure Hematuria Surgical History Hx of kyphoplasty S/P abdominal hysterectomy H/O umbilical hernia repair History of tonsillectomy S/P appendectomy Family History Brother CAD (coronary artery disease) Cancer Hyperlipemia Mother Cancer Leukemia Sister Cancer Sarcoma Social History household members: none housing: house Smoking Status: Never smoker alcohol intake: never substance use type: does not use HPI CERVICAL SPINE Details: This documentation accurately reflects the service provided and the decisions made by me, ROBERT Maxwell 04/28/24 0993. Part of today???s visit was documented by Carmela See LPN, acting as scribe. BOB MCKENNA is a 84 year old F here today for initial evaluation of cervical spine pain. She complains of neck pain that radiates into her right arm down the lateral side and goes to her wrist. She does report numbness and tingling into that arm. She reports a seven year history of neck pain. Her pain typically comes in flares. She went to the ER on several occasions when the pain was at its worst and she was admitted at the end of March for low sodium levels. She has seen pain management in the past and did receive injections which she reports was helpful. Her last injection was six months ago. Says that she had an injection years ago that gave her several years of relief. She did follow up with Dr. Ocampo this week and he recommended another injection and to be evaluated by us for a potential MRI. History of leukemia. Ortho Exam General General: Yes no acute distress Neurologic: Yes alert and Yes oriented x3 Spine SPINE TESTING CERVICAL THORACIC LUMBAR Musculoskeletal Strength 0=absent - 5=normal Details: Neurological exam of the upper extremities shows 5x5 power. Normal sensations across all dermatomes. No hyperreflexia. No midline or paraspinal tenderness. Lior's negative. Romberg's positive. Single leg stand shows poor balance equal bilaterally. Coding Level of Care Code Off vis,new,level 4 Diagnoses Cervical radiculopat (more content not included)... Normal [facility] Basic Metabolic Profile (BMP )on 04-03-2024 BUN/CRE 23.1 RATIO High 03-26 [facility] Comment on above: Performed By: #### L 501.5200, L501.2300, L500.2500 #### [facility] [address] [place], [address] CA,Total 8.4 mg/dL Low 8.5-10.1 [facility] Comment on above: Performed By: #### L 501.5200, L501.2300, L500.2500 #### [facility] [address] [place], [address] Chloride [Moles/Vol] 99 mmol/L Normal 98-107 [facility] Comment on above: Performed By: #### L 501.5200, L501.2300, L500.2500 #### [facility] [address] [place], [address] CO2 [Moles/Vol] 27.0 mmol/L Normal 21.0-32.0 [facility] Comment on above: Performed By: #### L 501.5200, L501.2300, L500.2500 #### [facility] [address] [place], [address] Creatinine [Mass/Vol] 0.65 mg/dL Normal 0.55-1.02 [facility] Comment on above: Result Comment: The validity of the calculated GFR GFRAA in patients over 70 years has not been determined. Clinical correlation is essential. Performed By: #### L 501.5200, L501.2300, L500.2500 #### [facility] [address] [place], [address] ECRCL 51.25 ml/min Normal [facility] Comment on above: Performed By: #### L 501.5200, L501.2300, L500.2500 #### [facility] [address] [place], [address] EST GFR - AA 112 mL/min Normal >60 [facility] Comment on above: Result Comment: Afri can Albanian GFR Calc Performed By: #### L 501.5200, L501.2300, L500.2500 #### [facility] [address] [place], [address] GAP 4 Low 5-15 [facility] Comment on above: Performed By: #### L 501.5200, L501.2300, L500.2500 #### [facility] [address] [place], [address] GFR/1.73 sq M.predicted among non-blacks MDRD (S/P/Bld) [Vol rate/Area] 92 mL/min/{1.73_m2} Normal >60 [facility] Comment on above: Result Comment: Non- GFR Calc Performed By: #### L 501.5200, L501.2300, L500.2500 #### [facility] [address] [place], [address] Glucose [Mass/Vol] 97 mg/dL Normal 74-106 [facility] Comment on above: Performed By: #### L 501.5200, L501.2300, L500.2500 #### [facility] [address] [place], [address] Potassium [Moles/Vol] 4.6 mmol/L Normal 3.5-5.1 [facility] Comment on above: Performed By: #### L 501.5200, L501.2300, L500.2500 #### [facility] [address] [place], [address] Sodium [Moles/Vol] 130 mmol/L Low 136-145 [facility] Comment on above: Performed By: #### L 501.5200, L501.2300, L500.2500 #### [facility] [address] [place], [address] Urea nitrogen [Mass/Vol] 15 mg/dL Normal 7-18 [facility] Comment on above: Performed By: #### L 501.5200, L501.2300, L500.2500 #### [facility] [address] [place], [address] CORTISOL SERUMon 04-03-2024 CORTISOL 14.80 ug/dL Normal 3.44-22.45 [facility] Comment on above: Result Comment: Adul t (AM) 5.27 - 22.45 ug/dL Adult (PM) 3.44 - 16.76 ug/dL Performed By: #### L 504.2610, L500.4050 #### [facility] [address] [place], [address] Discharge Instructionon 03-08 Discharge Instruction [facility] Medical Records Department [address] [place] [address] Instructions for Home/Discharge Instructions 04/03/24 1131 MR#: [id number] Acct: [id number] Name: BOB MCKENNA Rep #: [id number] : 1940 84 From: Victoriano Cannon DO PCP: Dr. Lizzette Apple DO Status:ADM IN Discharge Instructions Diet Discharge Diet: No restrictions Activity Discharge Activity: Return to Normal Activity Weight Bearing Status: Full weight bearing Follow Up Care Test Results: Test results from this visit will be discussed in further detail at your follow-up appointment, if applicable. Discharge Plan Admission Admit Date/Time: 04/01/24 23:30 Primary Reason for Your Visit: nausea, vomiting, hyponatremia Attending Provider: Victoriano Cannon Primary Care Provider: Lizzette Apple Consulting Providers: Carlos Enrique Nguyễn; Markel Mitchell Instructions Additional Instructions / Restrictions: you may increase the Lactulose to 30 grams twice a day if necessary for constipation Discharge Orders/Prescriptions Prescriptions: New lactulose 20 gram/30 mL solution 20 g PO BID Qty: 1500 1RF Rx Instructions: 20 grams once or twice daily for constipation ondansetron HCl 4 mg tablet 4 mg PO Q6H PRN (Reason: nausea and vomiting) Qty: 30 0RF Continued ascorbic acid (vitamin C) 100 mg tablet 100 mg PO DAILY calcium carbonate 600 mg calcium (1,500 mg) tablet 600 mg PO BID cholecalciferol (vitamin D3) 10 mcg (400 unit) capsule 10 mcg PO DAILY lutein 20 mg capsule 20 mg PO DAILY Rx Instructions: give with meal/snack magnesium carbonate 1 cap PO DAILY levothyroxine 88 mcg capsule 88 mcg PO DAILY losartan 50 mg tablet 50 mg PO QHS mecobalamin (vitamin B12) 1,000 mcg lozenge 1,000 mcg PO Q OTHER DAY Rx Instructions: allow to dissolve in mouth OR may chew lightly before swallowing (DME) Disability Placard See Rx Instructions .Route .MEDSUPPLY Qty: 1 0RF Rx Instructions: As directed (DME) disability placard See Rx Instructions .Route .MEDSUPPLY Qty: 1 0RF Rx Instructions: . Brukinsa 80 mg capsule 320 mg PO BID hydrocodone-acetaminophen 5-325 mg tablet 1 tab PO Q6H PRN PRN (Reason: Pain) 3 Days Qty: 10 0RF Discontinued Metamucil 3.4 gram/5.4 gram powder 1 tbsp PO DAILY Rx Instructions: mix into at least 8 oz of water or juice before administering polyethylene glycol 3350 [Miralax] 17 gram/dose powder 4 g PO DAILY docusate sodium [Colace] 100 mg capsule 100 mg PO BID Referrals / Follow Up: Lizzette Apple DO [Primary Care Provider] - See Referral Note (at next scheduled visit) Disposition Disposition (needs filled in before D/C Order can be placed): Home, Self Care 04/03/24 1140 Victoriano Cannon DO CC: Dr. Carlos Enrique Nguyễn DO; Dr. Markel Mitchell DO; Dr. Lizzette Apple DO Signed Normal [facility] Magnesiumon 04-03-2024 Magnesium [Mass/Vol] 2.2 mg/dL Normal 1.6-2.6 [facility] Comment on above: Performed By: #### L 501.2950, L501.2300, L500.2500 #### [facility] [address] [place], [address] Phosphoruson 04-03-2024 Phosphate [Mass/Vol] 3.5 mg/dL Normal 2.5-4.9 [facility] Comment on above: Performed By: #### L 501.5200, L501.2300, L500.2500 #### [facility] [address] [place], [address] Vitamin B12on 04-03-2024 Cobalamin (Vitamin B12) [Mass/Vol] 1589 pg/mL High 211-911 [facility] Comment on above: Performed By: #### L 504.2610, L500.4050 #### [facility] [address] [place], [address] Basic Metabolic Profile (BMP )on 04-02-2024 BUN/CRE 18.1 RATIO Normal 10-20 [facility] Comment on above: Performed By: #### L 400.0001 #### [facility] [address] [place], [address] CA,Total 8.7 mg/dL Normal 8.5-10.1 [facility] Comment on above: Performed By: #### L 400.0001 #### [facility] [address] [place], [address] Chloride [Moles/Vol] 96 mmol/L Low 98-107 [facility] Comment on above: Performed By: #### L 400.0001 #### [facility] [address] [place], [address] CO2 [Moles/Vol] 29.0 mmol/L Normal 21.0-32.0 [facility] Comment on above: Performed By: #### L 400.0001 #### [facility] [address] [place], [address] Creatinine [Mass/Vol] 0.61 mg/dL Normal 0.55-1.02 [facility] Comment on above: Result Comment: The validity of the calculated GFR GFRAA in patients over 70 years has not been determined. Clinical correlation is essential. Performed By: #### L 400.0001 #### [facility] [address] [place], [address] ECRCL 40.66 ml/min Normal [facility] Comment on above: Performed By: #### L 400.0001 #### [facility] [address] [place], [address] EST GFR - AA 120 mL/min Normal >60 [facility] Comment on above: Result Comment: Afri can Albanian GFR Calc Performed By: #### L 400.0001 #### [facility] [address] [place], [address] GAP 6 Normal 5-15 [facility] Comment on above: Performed By: #### L 400.0001 #### [facility] [address] [place], [address] GFR/1.73 sq M.predicted among non-blacks MDRD (S/P/Bld) [Vol rate/Area] 99 mL/min/{1.73_m2} Normal >60 [facility] Comment on above: Result Comment: Non- GFR Calc Performed By: #### L 400.0001 #### [facility] [address] [place], [address] Glucose [Mass/Vol] 93 mg/dL Normal 74-106 [facility] Comment on above: Performed By: #### L 400.0001 #### [facility] [address] [place], [address] Potassium [Moles/Vol] 4.5 mmol/L Normal 3.5-5.1 [facility] Comment on above: Performed By: #### L 400.0001 #### [facility] [address] [place], [address] Sodium [Moles/Vol] 131 mmol/L Low 136-145 [facility] Comment on above: Performed By: #### L 400.0001 #### [facility] [address] [place], [address] Urea nitrogen [Mass/Vol] 11 mg/dL Normal 7-18 [facility] Comment on above: Performed By: #### L 400.0001 #### [facility] [address] [place], [address] BUN/CRE 19.4 RATIO Normal 10-20 [facility] Comment on above: Performed By: #### L 504.2610, L500.4050 #### [facility] [address] [place], [address] CA,Total 8.3 mg/dL Low 8.5-10.1 [facility] Comment on above: Performed By: #### L 504.2610, L500.4050 #### [facility] [address] [place], [address] Chloride [Moles/Vol] 96 mmol/L Low 98-107 [facility] Comment on above: Performed By: #### L 504.2610, L500.4050 #### [facility] [address] [place], [address] CO2 [Moles/Vol] 26.0 mmol/L Normal 21.0-32.0 [facility] Comment on above: Performed By: #### L 504.2610, L500.4050 #### [facility] [address] [place], [address] Creatinine [Mass/Vol] 0.57 mg/dL Normal 0.55-1.02 [facility] Comment on above: Result Comment: The validity of the calculated GFR GFRAA in patients over 70 years has not been determined. Clinical correlation is essential. Performed By: #### L 504.2610, L500.4050 #### [facility] [address] [place], [address] ECRCL 40.66 ml/min Normal [facility] Comment on above: Performed By: #### L 504.2610, L500.4050 #### [facility] [address] [place], [address] EST GFR - AA 130 mL/min Normal >60 [facility] Comment on above: Result Comment: Afri can Albanian GFR Calc Performed By: #### L 504.2610, L500.4050 #### [facility] [address] [place], [address] GAP 6 Normal 5-15 [facility] Comment on above: Performed By: #### L 504.2610, L500.4050 #### [facility] [address] [place], [address] GFR/1.73 sq M.predicted among non-blacks MDRD (S/P/Bld) [Vol rate/Area] 108 mL/min/{1.73_m2} Normal >60 [facility] Comment on above: Result Comment: Non- GFR Calc Performed By: #### L 504.2610, L500.4050 #### [facility] [address] [place], [address] Glucose [Mass/Vol] 98 mg/dL Normal 74-106 [facility] Comment on above: Performed By: #### L 504.2610, L500.4050 #### [facility] [address] [place], [address] Potassium [Moles/Vol] 4.7 mmol/L Normal 3.5-5.1 [facility] Comment on above: Performed By: #### L 504.2610, L500.4050 #### [facility] [address] [place], [address] Sodium [Moles/Vol] 128 mmol/L Low 136-145 [facility] Comment on above: Performed By: #### L 504.2610, L500.4050 #### [facility] [address] [place], [address] Urea nitrogen [Mass/Vol] 11 mg/dL Normal 7-18 [facility] Comment on above: Performed By: #### L 504.2610, L500.4050 #### [facility] [address] [place], [address] CBC W/Diff, Automatedon - ATYPICAL LYMPH 3+ Normal [facility] Comment on above: Performed By: #### L 400.0001 #### [facility] [address] [place], [address] Comprehensive Metabolic Prof ilon 04-02-2024 Albumin [Mass/Vol] 3.4 g/dL Normal 3.2-5.0 [facility] Comment on above: Performed By: #### L 504.2610, L500.4050 #### [facility] [address] [place], [address] Albumin/Globulin [Mass ratio] 1.3 {ratio} Normal 0.9-2.4 [facility] Comment on above: Performed By: #### L 504.2610, L500.4050 #### [facility] [address] [place], [address] ALK P 60 U/L Normal 45-117 [facility] Comment on above: Performed By: #### L 504.2610, L500.4050 #### [facility] [address] [place], [address] ALT [Catalytic activity/Vol] 29 U/L Normal 13-56 [facility] Comment on above: Performed By: #### L 504.2610, L500.4050 #### [facility] [address] [place], [address] AST [Catalytic activity/Vol] 16 U/L Normal 15-37 [facility] Comment on above: Performed By: #### L 504.2610, L500.4050 #### [facility] [address] [place], [address] Bilirubin [Mass/Vol] 0.60 mg/dL Normal 0.20-1.00 [facility] Comment on above: Result Comment: For patients on eltrombopag therapy, use of Dimension Alba TBIL is not recommended. Performed By: #### L 504.2610, L500.4050 #### [facility] [address] [place], [address] BUN/CRE 23.7 RATIO High 10-20 [facility] Comment on above: Performed By: #### L 504.2610, L500.4050 #### [facility] [address] [place], [address] CA,Total 8.5 mg/dL Normal 8.5-10.1 [facility] [facility] Comment on above: Performed By: #### L 504.2610, L500.4050 #### [facility] [address] [place], [address] Chloride [Moles/Vol] 92 mmol/L Low 98-107 [facility] Comment on above: Performed By: #### L 504.2610, L500.4050 #### [facility] [address] [place], [address] CO2 [Moles/Vol] 30.0 mmol/L Normal 21.0-32.0 [facility] Comment on above: Performed By: #### L 504.2610, L500.4050 #### [facility] [address] [place], [address] Creatinine [Mass/Vol] 0.59 mg/dL Normal 0.55-1.02 [facility] Comment on above: Result Comment: The validity of the calculated GFR GFRAA in patients over 70 years has not been determined. Clinical correlation is essential. Performed By: #### L 504.2610, L500.4050 #### [facility] [address] [place], [address] ECRCL 40.66 ml/min Normal [facility] Comment on above: Performed By: #### L 504.2610, L500.4050 #### [facility] [address] [place], [address] EST GFR - AA 124 mL/min Normal >60 [facility] Comment on above: Result Comment: Afri can Albanian GFR Calc Performed By: #### L 504.2610, L500.4050 #### [facility] [address] [place], [address] GAP 6 Normal 5-15 [facility] Comment on above: Performed By: #### L 504.2610, L500.4050 #### [facility] [address] [place], [address] GFR/1.73 sq M.predicted among non-blacks MDRD (S/P/Bld) [Vol rate/Area] 103 mL/min/{1.73_m2} Normal >60 [facility] Comment on above: Result Comment: Non- GFR Calc Performed By: #### L 504.2610, L500.4050 #### [facility] [address] [place], [address] Globulin (S) [Mass/Vol] 2.6 g/dL Normal 2.2-4.2 [facility] Comment on above: Performed By: #### L 504.2610, L500.4050 #### [facility] [address] [place], [address] Glucose [Mass/Vol] 99 mg/dL Normal 74-106 [facility] Comment on above: Performed By: #### L 504.2610, L500.4050 #### [facility] [address] [place], [address] Potassium [Moles/Vol] 3.6 mmol/L Normal 3.5-5.1 [facility] Comment on above: Performed By: #### L 504.2610, L500.4050 #### [facility] [address] [place], [address] Sodium [Moles/Vol] 128 mmol/L Low 136-145 [facility] Comment on above: Performed By: #### L 504.2610, L500.4050 #### [facility] [address] [place], [address] T PROT 6.0 g/dL Low 6.4-8.2 [facility] Comment on above: Performed By: #### L 504.2610, L500.4050 #### [facility] [address] [place], [address] Urea nitrogen [Mass/Vol] 14 mg/dL Normal 7-18 [facility] Comment on above: Performed By: #### L 504.2610, L500.4050 #### [facility] [address] [place], [address] Folates, (Folic Acid)on 03-08 FOLATES 19.30 ng/mL Normal 3.1-55.4 [facility] Comment on above: Order Comment: 1 Performed By: #### L 504.2610, L500.4050 #### [facility] [address] [place], [address] Magnesiumon 04-02-2024 Magnesium [Mass/Vol] 2.3 mg/dL Normal 1.6-2.6 [facility] Comment on above: Performed By: #### L 504.2610, L500.4050 #### [facility] [address] [place], [address] Osmolality, Serumon 04-02-20 24 OSMOLALITY,SER 267 mOsm/KG Low 280-301 [facility] Comment on above: Performed By: #### L 400.0001 #### [facility] [address] [place], [address] Osmolality, Urineon 04-02-20 24 OSMOLALITY,UR 112 mOsm/KG Normal [facility] Comment on above: Result Comment: Normal Urine Reference Ranges Random: 50 - 1200 mOsm/kg H20 depending on fluid intake Random: >850 mOsm/kg after 12 hour fluid restriction 24 hour: 300 - 900 mOsm/kg H2O Performed By: #### L 501.7400 #### [facility] [address] [place], [address] Phosphoruson 04-02-2024 Phosphate [Mass/Vol] 3.0 mg/dL Normal 2.5-4.9 [facility] Comment on above: Performed By: #### L 504.2610, L500.4050 #### [facility] [address] [place], [address] Thyroid Stim Hormone (TSH)on 04-02-2024 TSH 3.100 uIU/mL Normal 0.358-3.74 0 [facility] Comment on above: Performed By: #### L 504.2610, L500.4050 #### [facility] [address], [address] TSH 5.320 uIU/mL High 0.358-3.74 0 [facility] Comment on above: Order Comment: 1 Performed By: #### L 504.2610, L500.4050 #### [facility] [address] [place], [address] 12 Lead EKGon 04-01-2024 12 Lead EKG [facility] Services [address] [place] [address] 12 Lead EKG 04/01/242049 MR#: [id number] Acct: [id number] Name: BOB MCKENNA Rep #: [id number] : 1940 84 From: Kamar Hurt MD Attending Dr: Dr. Victoriano Cannon DO Status: A DM IN Ordering Dr: Lito Mendenhall DO Date: 04/01/24 Location: U Sex: F C Admitted: 04/01/24 Test Reason : GEN. ILLNESS Blood Pressure : / mmHG Vent. Rate : 073 BPM Atrial Rate : 073 BPM P-R Int : 202 ms QRS Dur : 088 ms QT Int : 394 ms P-R-T Axes : 071 039 057 degrees QTc Int : 434 ms Normal sinus rhythm Normal ECG Confirmed by KATERIN RAMOS, KAMAR ([id number]), editor greeting card PEDRO WAGNER ([id number]) on 04/03/2024 9:38:56 AM Referred By: LEEANNA Confirmed By:KAMAR HURT MD 04/03/24 0938 Date Kamar Hurt MD CC: Dr. Lizzette Apple, ; Dr. Victoriano Cannon DO; Dr. Lito Mendenhall DO Signed Normal [facility] 36on 04-01-2024 36 S: Patient's daughte r spoke with [facility] nurse regarding dehydration. B: Onset of symptoms for a week. A: Seen in the office and directed to the ER for IV fluids and then refusing to go to the ER. Vomiting and dry heaves, able to drink 2 glasses of Pedialyte and then vomited, is urinated, has been to the ER this week and the physician office, confusion and normally is not, some dizziness noted. R: Instructed to be seen in the ER for eval, daughter will take her to [facility] Patient understands care advice. No further needs at this time. Patient instructed to call back with new or worsening symptoms. Reason for Disposition [1] SEVERE vomiting (e.g., 6 or more times/day) AND [2] present > 8 hours (Exception: Patient sounds well, is drinking liquids, does not sound dehydrated, and vomiting has lasted less than 24 hours.) Protocols used: [id number] Normal [facility] Abdomen/Pelvis without Conto n 04-01-2024 Abdomen/Pelvis without Cont [facility] Imaging Services [address] [place] [address] Abdomen/Pelvis without Cont MR#: [id number] Acct: [id number] Name: BOB MCKENNA Rep #: [id number] : 1940 F 84 From: Esperanza pollock MD PCP: Dr. Lizzette Apple, DO Status: REG ER Study: Abdomen/Pelvis without Cont Date of Exam: 03/08 11/28 Exam# [id number] Ordering Dr: Lito Mendenhall DO [id number] EXAM: CT ABDOMEN AND PELVIS WITHOUT INTRAVENOUS CONTRAST CLINICAL INDICATION: constipation TECHNIQUE: Helically acquired images were obtained of the abdomen and pelvis without intravenous contrast. This CT exam was performed using one or more of the following dose reduction techniques: automated exposure control, adjustment of the mA and/or kV according to patient size, and/or use of iterative reconstruction technique. COMPARISON: None. FINDINGS: LOWER THORAX: Unremarkable. Lung bases are clear. No cardiomegaly. No significant pericardial effusion. ABDOMEN: LIVER: Unremarkable. Homogeneous. GALLBLADDER AND BILE DUCTS: Unremarkable. No calcified gallstones. No gallbladder distention or wall edema. No intra- or extrahepatic biliary ductal dilation. PANCREAS: Unremarkable. No focal cystic mass. SPLEEN: Unremarkable. Normal size without focal cystic or solid mass. ADRENALS: Unremarkable. No nodules. KIDNEYS AND URETERS: Unremarkable. Normal renal size and position. No stones or hydronephrosis. STOMACH AND BOWEL: Mild to moderate stool burden, unremarkable. No stomach or bowel distention. No focal inflammatory change. PELVIS: APPENDIX: No evidence of acute appendicitis. BLADDER: Unremarkable. REPRODUCTIVE: Unremarkable as visualized. No mass. ABDOMEN and PELVIS: INTRAPERITONEAL SPACE: No ascites. No free air. BONES/JOINTS: Mild this shape scoliosis of the thoracolumbar spine. Multiple chronic lumbar compression fractures with vertebroplasty at L2 and L3. Degenerative disc changes. Mild anterolisthesis at L4-5. No suspicious lytic or blastic abnormality. SOFT TISSUES: Unremarkable. No discrete abdominal or pelvic wall hernia. VASCULATURE: Unremarkable. Abdominal aorta is normal in caliber. LYMPH NODES: Unremarkable. No enlarged lymph nodes. CT/Abdomen/Pelvis without Cont IMPRESSION: No acute findings in the abdomen or pelvis. Chronic compression fractures and degenerative changes of the lumbar spine. Electronically Signed: Esperanza Duckworth MD at 21:46 EDT Reading Location ID and State: [id number] / Tel , Service support , CC: Dr. Lizzette Apple DO; Dr. Lito Mendenhall DO Closer On: Signed Normal [facility] Brain/Head without Contrasto n 04-01-2024 Brain/Head without Contrast [facility] Imaging Services [address] [place] [address] [id number] Brain/Head without Contrast MR#: [id number] Acct: [id number] Name: BOB MCKENNA Rep #: [id number] : 1940 F 84 From: Esperanza pollock MD PCP: Dr. Lizzette Apple DO Status: REG ER Study: Brain/Head without Contrast Date of Exam: 03/08 11/28 Exam# [id number] Ordering Dr: Lito Mendenhall DO [id number] STUDY: CT BRAIN WITHOUT CONTRAST REASON FOR EXAM: Female, 84 years old. confusion r/o ICH RADIATION DOSAGE (If Supplied By Facility): CTDIvol = ( 44.99 ) mGy, DLP = ( 863.60 ) mGycm TECHNIQUE: Transaxial CT imaging of the brain was performed without administration of intravenous contrast material. Individualized dose optimization techniques were used for this CT. COMPARISON: None. FINDINGS: Normal soft tissue structures. Normal calvarium. Mild low-attenuation changes in the periventricular white matter. Mild ventriculomegaly commensurate with the degree of sulcal atrophy. Mild involutional changes are consistent with the patient''s age. There is no intracranial hemorrhage. There are no findings of an acute ischemic infarction. Normal visualized paranasal sinuses. CT/Brain/Head without Contrast IMPRESSION: No acute findings. Microvascular ischemic changes. Mild atrophy. Electronically Signed: Esperanza Duckworth MD at 21:40 EDT Reading Location ID and State: [id number] / Tel , Service support , CC: Dr. Lizzette Apple, DO; Dr. Lito Mendenhall, DO Closer On: Signed Normal [facility] CBC-Complete Blood Cnt No Di ffon 04-01-2024 Erythrocyte distribution width (RBC) [Ratio] 13.0 % Normal 11.6-14.6 [facility] Comment on above: Performed By: #### L 504.2610, L500.4050 #### [facility] [address] [place], [address] Hematocrit (Bld) [Volume fraction] 34.5 % Low 37-47 [facility] Comment on above: Performed By: #### L 504.2610, L500.4050 #### [facility] [address] [place], [address] Hemoglobin (Bld) [Mass/Vol] 12.3 g/dL Normal 12.0-15.0 [facility] Comment on above: Performed By: #### L 504.2610, L500.4050 #### [facility] [address] [place], [address] MCH (RBC) [Entitic mass] 30.0 pg Normal 27.0-32.0 [facility] Comment on above: Performed By: #### L 504.2610, L500.4050 #### [facility] [address] [place], [address] MCHC (RBC) [Mass/Vol] 35.7 g/dL Normal 32-36 [facility] Comment on above: Performed By: #### L 504.2610, L500.4050 #### [facility] [address] [place], [address] MCV (RBC) [Entitic vol] 84.1 fL Normal 81-99 [facility] Comment on above: Performed By: #### L 504.2610, L500.4050 #### [facility] [address] [place], [address] Platelet mean volume (Bld) [Entitic vol] 9.6 fL Normal 6.2-12.0 [facility] Comment on above: Performed By: #### L 504.2610, L500.4050 #### [facility] [address] [place], [address] Platelets (Bld) [#/Vol] 284 10*3/uL Normal 150-450 [facility] Comment on above: Performed By: #### L 504.2610, L500.4050 #### [facility] [address] [place], [address] RBC (Bld) [#/Vol] 4.10 10*6/uL Low 4.2-5.4 [facility] Comment on above: Performed By: #### L 504.2610, L500.4050 #### [facility] [address] [place], [address] RDW SD 39.8 fl Normal 35.1-43.9 [facility] Comment on above: Performed By: #### L 504.2610, L500.4050 #### [facility] [address] [place], [address] WBC (Bld) [#/Vol] 11.5 10*3/uL High 4.4-11.0 [facility] Comment on above: Performed By: #### L 504.2610, L500.4050 #### [facility] [address] [place], [place], [address] Chest 1 View (Portable)on Chest 1 View (Portable) [facility] Imaging Services [address] [place], [place] [address] Chest 1 View (Portable) MR#: [id number] Acct: [id number] Name: BOB MCKENNA Rep #: [id number] : 1940 F 84 From: Matt Garvin DO PCP: Dr. Lizzette Apple DO Status: [facility] ER Study: Chest 1 View (Portable) Date of Exam: 04/01/24 Exam# [id number] Ordering Dr: Lito Mendenhall DO [id number] INDICATION: confusoin r/o PNA EXAMINATION/TECHNIQUE: X-RAY - XR Chest 1 View COMPARISON: FINDINGS: LINES/DEVICES: None. LUNGS: No consolidation, edema or effusion. No pneumothorax. MEDIASTINUM AND CARDIOVASCULAR STRUCTURES: Cardiac silhouette not enlarged. Central airways and mediastinal contour are unremarkable. BONES AND SOFT TISSUES: Unremarkable. RAD/Chest 1 View (Portable) IMPRESSION: No radiographic evidence of acute cardiopulmonary disease. Electronically Signed: Matt Garvin DO at 22:28 EDT , CC: Dr. Lizzette Apple DO; Dr. Lito Mendenhall DO Closer On: Signed Normal [facility] Comprehensive Metabolic Prof ilon 04-01-2024 Albumin [Mass/Vol] 3.7 g/dL Normal 3.2-5.0 [facility] Comment on above: Order Comment: 1 Performed By: #### L 504.2610, L500.4050 #### [facility] [address] [place], [address] Albumin/Globulin [Mass ratio] 1.4 {ratio} Normal 0.9-2.4 [facility] Comment on above: Order Comment: 1 Performed By: #### L 504.2610, L500.4050 #### [facility] [address] [place], [address] ALK P 65 U/L Normal 45-117 [facility] Comment on above: Order Comment: 1 Performed By: #### L 504.2610, L500.4050 #### [facility] [address] [place], [address] ALT [Catalytic activity/Vol] 32 U/L Normal 13-56 [facility] Comment on above: Order Comment: 1 Performed By: #### L 504.2610, L500.4050 #### [facility] [address] [place], [address] AST [Catalytic activity/Vol] 12 U/L Low 15-37 [facility] Comment on above: Order Comment: 1 Performed By: #### L 504.2610, L500.4050 #### [facility] [address] [place], [address] Bilirubin [Mass/Vol] 0.60 mg/dL Normal 0.20-1.00 [facility] Comment on above: Order Comment: 1 Result Comment: For patients on eltrombopag therapy, use of Dimension Alba TBIL is not recommended. Performed By: #### L 504.2610, L500.4050 #### [facility] [address] [place], [address] BUN/CRE 20.8 RATIO High 10-20 [facility] Comment on above: Order Comment: 1 Performed By: #### L 504.2610, L500.4050 #### [facility] [address] [place], [address] CA,Total 8.6 mg/dL Normal 8.5-10.1 [facility] Comment on above: Order Comment: 1 Performed By: #### L 504.2610, L500.4050 #### [facility] [address] [place], [address] Chloride [Moles/Vol] 81 mmol/L Low 98-107 [facility] Comment on above: Order Comment: 1 Performed By: #### L 504.2610, L500.4050 #### [facility] [address] [place], [address] CO2 [Moles/Vol] 28.0 mmol/L Normal 21.0-32.0 [facility] Comment on above: Order Comment: 1 Performed By: #### L 504.2610, L500.4050 #### [facility] [address] [place], [address] Creatinine [Mass/Vol] 0.87 mg/dL Normal 0.55-1.02 [facility] Comment on above: Order Comment: 1 Result Comment: The validity of the calculated GFR GFRAA in patients over 70 years has not been determined. Clinical correlation is essential. Performed By: #### L 504.2610, L500.4050 #### [facility] [address] [place], [address] ECRCL 37.39 ml/min Normal [facility] Comment on above: Order Comment: 1 Performed By: #### L 504.2610, L500.4050 #### [facility] [address] [place], [address] EST GFR - AA 80 mL/min Normal >60 [facility] Comment on above: Order Comment: 1 Result Comment: Afri can Albanian GFR Calc Performed By: #### L 504.2610, L500.4050 #### [facility] [address] [place], [address] GAP 11 Normal 5-15 [facility] Comment on above: Order Comment: 1 Performed By: #### L 504.2610, L500.4050 #### [facility] [address] [place], [address] GFR/1.73 sq M.predicted among non-blacks MDRD (S/P/Bld) [Vol rate/Area] 66 mL/min/{1.73_m2} Normal >60 [facility] Comment on above: Order Comment: 1 Result Comment: Non- GFR Calc Performed By: #### L 504.2610, L500.4050 #### [facility] [address] [place], [address] Globulin (S) [Mass/Vol] 2.6 g/dL Normal 2.2-4.2 [facility] Comment on above: Order Comment: 1 Performed By: #### L 504.2610, L500.4050 #### [facility] [address] [place], [address] Glucose [Mass/Vol] 139 mg/dL High 74-106 [facility] Comment on above: Order Comment: 1 Result Comment: Fast ing Glucose result greater than or equal to 126 mg/dL suggests DIABETES MELLITUS per A.D.A. criteria. Performed By: #### L 504.2610, L500.4050 #### [facility] [address] [place], [address] Potassium [Moles/Vol] 3.3 mmol/L Low 3.5-5.1 [facility] Comment on above: Order Comment: 1 Performed By: #### L 504.2610, L500.4050 #### [facility] [address] [place], [address] Sodium [Moles/Vol] 120 mmol/L Low 136-145 [facility] Comment on above: Order Comment: 1 Performed By: #### L 504.2610, L500.4050 #### [facility] [address] [place], [address] T PROT 6.3 g/dL Low 6.4-8.2 [facility] Comment on above: Order Comment: 1 Performed By: #### L 504.2610, L500.4050 #### [facility] [address] [place], [address] Urea nitrogen [Mass/Vol] 18 mg/dL Normal 7-18 [facility] Comment on above: Order Comment: 1 Performed By: #### L 504.2610, L500.4050 #### [facility] [address] [place], [address] Emergency Department Summary on 04-01-2024 Emergency Department Summary [facility] Medical Records Department [address] [place] [address] Emergency Department Summary 04/01/24 MR#: [id number] Acct: [id number] Name: BOB MCKENNA Rep #: [id number] : 1940 84 From: Lito Mendenhall DO PCP: Dr. Lizzette Apple, Status:REG ER Location: ED HPI History of Present Illness Chief Complaint: General Illness [facility] Medical History Retroperitoneal lymphadenopathy Abdominal pain Depression Back pain Constipation Wears hearing aid Wears glasses Cancer Thyroid disease Walker as ambulation aid High cholesterol Non-smoker Leg cramps History of echocardiogram History of stress test Cardiology follow-up encounter Cholinesterase deficiency Encounter for education Anemia CLL (chronic lymphocytic leukemia) Hypothyroidism Vertigo Varicose veins of legs Supraclavicular mass Supraclavicular lymphadenopathy Skin lesion of face Skin lesion of neck Stress incontinence Psoriasis Osteoporosis Mitral valve prolapse Low back pain with right-sided sciatica Hyperlipidemia High blood pressure Hematuria Home Medications ???Medication ???Instructions ???Recorded ???Last Taken ???Type ascorbic acid (vitamin C) 100 mg 100 mg PO DAILY 08/14/22 10/20/23 History tablet calcium carbonate 600 mg PO BID 08/14/22 10/20/23 History cholecalciferol (vitamin D3) 10 10 mcg PO DAILY 08/14/22 10/20/23 History mcg (400 unit) capsule lutein 20 mg capsule 20 mg PO DAILY 08/14/22 10/20/23 History magnesium carbonate 1 cap PO DAILY 08/18/22 10/20/23 History polyethylene glycol 3350 17 4 g PO DAILY 02/23/23 10/20/23 History gram/dose oral powder (Miralax) psyllium husk 3.4 gram/5.4 gram 1 tbsp PO DAILY 02/23/23 10/20/23 History oral powder (Metamucil) mecobalamin (vitamin B12) 1,000 1,000 mcg PO Q OTHER DAY 03/01/23 10/20/23 History mcg lozenges levothyroxine 88 mcg capsule 88 mcg PO DAILY 06/01/23 10/20/23 History Disability Placard #1 ea 09/07/23 Unknown Rx zanubrutinib 80 mg capsule 320 mg PO BID 10/18/23 03/20/24 History (Brukinsa) disability placard #1 ea 01/03/24 Unknown Rx losartan 50 mg tablet 50 mg PO QHS 01/03/24 Unknown History docusate sodium 100 mg capsule 100 mg PO BID 03/22/24 Unknown History (Colace) hydrocodone-acetaminophen 5-325mg 1 tab PO Q6H PRN PRN Pain 3 days 03/27/24 Unknown Rx 5mg-325mg #10 TABLETS Allergy/AdvReac Type Severity Reaction Status Date / Time No Known Allergies Allergy Verified 04/01/24 19:51 Family History Brother CAD (coronary artery disease) Cancer Hyperlipemia Mother Cancer Leukemia Sister Cancer Sarcoma Surgical History Hx of kyphoplasty S/P abdominal hysterectomy H/O umbilical hernia repair History of tonsillectomy S/P appendectomy Social History Smoking Status: Never smoker alcohol intake: never substance use type: does not use EXAM Physical Exam Const Vital Signs: 04/01/24 19:51 04/01/24 20:05 04/01/24 21:48 Temperature 98 F Temperature Source Oral Pulse Rate 72 69 Respiratory Rate 17 16 Respiratory Effort Normal Respiratory Pattern Normal Blood Pressure 125/71 H 116/90 H Blood Pressure Mean 89 98 Pulse Ox 98 98 Oxygen Delivery Method Room Air Room Air [facility] MDM Narrative Medical decision making narrative: HISTORY OF PRESENT ILLNESS: 84-year-old female presents with nausea vomiting. No she was recently evaluated for shoulder and chest pain. She notes she is continues to have chest pain on and off. She also reports increased confusion and feeling dizzy at times and having difficulty getting words out. Notes her PCP thought she may have been dehydrated during her last visit. No she is trying to hydrate from home but continues to have nausea and vomiting. REVIEW OF SYSTEMS: Pertinent positives: Chest pain, nausea vomiting, dizziness, dehydration Pertinent negatives: Syncope, focal weakness PHYSICAL EXAM: Nursing triage notes reviewed, Vital signs reviewed Constitutional: please see mdm HENT: MMM Eyes: Pupils equal round and reactive to light, Extraocular muscles intact Neck: No stridor, no JVD, full neck ROM Lungs: Clear to auscultation, No wheezing or rales. No increased work of breathing, no conversational dyspnea, no accessory muscle use, no nasal flaring. No respiratory distress noted Heart: Regular rate and rhythm, No murmurs, No rubs and No gallops, 2+ distal pulses (radial, femoral, posterior tibial) in all extremities Abdomen: Soft, there is no tenderness, rigidity, rebound or guarding, no obvious peritoneal sig (more content not included)... Normal [facility] H AND P Exam - Hospitaliston 04-01-2024 H&P Exam - Hospitalist [facility] Medical Records Department [address] [place] [address] H P Exam - Hospitalist 04/01/245 MR#: [id number] Acct: [id number] Name: BOB MCKENNA Rep #: [id number] : 1940 84 From: Carlos Enrique Nguyễn DO PCP: Dr. Lizzette Apple, DO Status:ADM IN Location: [facility] [id number] [facility] - General General Date of Admission: 04/01/24 Date of Service: 04/01/24 Chief Complaint: Nausea, Vomiting, Malaise and Confusion. HPI Narrative BOB MCKENNA, is a 84 F with a past medical history of essential hypertension; on losartan, hyperlipidemia, hypothyroidism, history of CLL with splenomegaly and retroperitoneal LAD; on zanubrutinib, chronic anemia, history of mitral valve prolapse, sciatica of the RLE, varicose veins of legs, history of vertigo, chronic constipation; on MiraLax, history of cholinesterase deficiency; discovered after patient underwent hysterectomy and did not wake up for 6 hours, history of abdominal hysterectomy, history of appendectomy, history of umbilical hernia; s/p repair, history of stress incontinence, depression, osteoporosis; with history of lumbar compression fractures L2, L3 and L5; s/p kyphoplasty (2003), OA; with chronic low back pain and recent ER evaluation here on March 27, 2024 for pleuritic chest pain radiating into back, shoulder pain and dizziness with constipation and elevated blood pressure of 187/87 mmHg with a serum sodium of 132 mmol/L present on that admission who now re-presents to [facility] ER complaining of nausea, vomiting, malaise and confusion. Ms. Mckenna reports her symptoms began approximately one week prior to admission with the gradual- onset of progressively worsening nausea and vomiting with bilious emesis along with continued intermittent chest pain. She also admits to hzsyvg-dhu-mfbuvp confusion and feeling dizzy with some slowed mentation and mild difficulty getting her words out. She was also recently evaluated by her PCP and was apparently thought to be developing dehydration so she went home and tried to increase her oral intake but was not able to do so because of continued nausea and vomiting so she decided to come in for further evaluation and treatment. She states she usually has 2 BM's per day but since she started zanubrutinib she has been severely constipated with abdominal distention and pain in addition to having no BM for the past week. She denies associated fever, chills, diarrhea, syncope or focal neurologic weakness. In the ER she was noted to have laboratory evidence of both Severe Acute Hyponatremia of 120 mmol/L and Hypokalemia of 3.3 mmol/L present on admission and Dehydration; evidenced by elevated BUN/creatinine ratio of 20.8 present on admission suspected to be due to Adverse Drug Reaction to zanubrutinib used to treat CLL compounded by clinical evidence of Metabolic Encephalopathy and she was then admitted to the PCU for ongoing care for a stay that is expected to extend beyond 2 midnights. [facility] Medical History Retroperitoneal lymphadenopathy Abdominal pain Depression Back pain Constipation Wears hearing aid Wears glasses Cancer Thyroid disease Walker as ambulation aid High cholesterol Non-smoker Leg cramps History of echocardiogram History of stress test Cardiology follow-up encounter Cholinesterase deficiency Encounter for education Anemia CLL (chronic lymphocytic leukemia) Hypothyroidism Vertigo Varicose veins of legs Supraclavicular mass Supraclavicular lymphadenopathy Skin lesion of face Skin lesion of neck Stress incontinence Psoriasis Osteoporosis Mitral valve prolapse Low back pain with right-sided sciatica Hyperlipidemia High blood pressure Hematuria Home Medications ???Medication ???Instructions ???Recorded ???Last Taken ???Type ascorbic acid (vitamin C) 100 mg 100 mg PO DAILY 08/14/22 10/20/23 History tablet calcium carbonate 600 mg PO BID 08/14/22 10/20/23 History cholecalciferol (vitamin D3) 10 10 mcg PO DAILY 08/14/22 10/20/23 History mcg (400 unit) capsule lutein 20 mg capsule 20 mg PO DAILY 08/14/22 10/20/23 History magnesium carbonate 1 cap PO DAILY 08/18/22 10/20/23 History polyethylene glycol 3350 17 4 g PO DAILY 02/23/23 10/20/23 History gram/dose oral powder (Miralax) psyllium husk 3.4 gram/5.4 gram 1 tbsp PO DAILY 02/23/23 10/20/23 History oral powder (Metamucil) mecobalamin (vitamin B12) 1,000 1,000 mcg PO Q OTHER DAY 03/01/23 10/20/23 History mcg lozenges levothyroxine 88 mcg capsule 88 mcg PO DAILY 06/01/23 10/20/23 History Disability Placard #1 ea 09/07/23 Unknown Rx zanubrutinib 80 mg capsule 320 mg PO BID 10/18/23 03/20/24 History (Brukinsa) disability placard #1 ea 01/03/24 Unknown Rx losartan 50 mg tablet 50 mg PO QHS 01/03/24 Unkno (more content not included)... Normal [facility] L501.4020on 04-01-2024 TROPONIN-I HS 6 pg/mL Normal 3.0-54.0 [facility] Comment on above: Order Comment: 1 Result Comment: Plea se Note: New Test Units and Gender Specific Reference Ranges. For more information see Policy Stat Procedure [place] High Sensitivity Troponin (TNIH) and attachments. Performed By: #### L 504.2610, L500.4050 #### [facility] [address] [place], [address] Lipaseon 04-01-2024 Lipase [Catalytic activity/Vol] 56 U/L Normal 13-75 [facility] Comment on above: Order Comment: 1 Result Comment: Plea se note: LIPASE revised reference range effective 22. New Lipase methodology. Expected to produce lower values than the previous assay method. NEW Reference Range: 13 - 75 U/L Performed By: #### L 504.2610, L500.4050 #### [facility] [address] [place], [address] M100.678on 04-01-2024 M100.678 Pending SARS-CoV-2 (COVID 19) Negative INFLUENZA A Negative INFLUENZA B Negative RSV PCR Negative Normal [facility] Comment on above: Performed By: #### M 100.678 ####[facility] [address] [place], [address] Urinalysis, Completeon 04-01 EPI,SQUAMOUS 0-5 SEEN Normal 5-10 [facility] Comment on above: Order Comment: CLEAN CATCH Performed By: #### L 400.0001 ####[facility] [address] [place], [address] BILIRUBIN URINE Negative Normal Negative [facility] Comment on above: Order Comment: CLEAN CATCH Performed By: #### L 400.0001 ####[facility] [address] [place], [address] Clarity (U) Clear Normal Clear [facility] Comment on above: Order Comment: CLEAN CATCH Performed By: #### L 400.0001 ####[facility] [address] [place], [address] Color (U) Straw Normal Yellow [facility] Comment on above: Order Comment: CLEAN CATCH Performed By: #### L 400.0001 ####[facility] [address] [place], [address] GLUCOSE, UR Normal Normal Normal [facility] Comment on above: Order Comment: CLEAN CATCH Performed By: #### L 400.0001 ####[facility] [address] [place], [address] KETONE UR Negative Normal Negative [facility] Comment on above: Order Comment: CLEAN CATCH Performed By: #### L 400.0001 ####[facility] [address] [place], [address] LEUK ESTERASE Negative Normal Negative [facility] Comment on above: Order Comment: CLEAN CATCH Performed By: #### L 400.0001 ####[facility] [address] [place], [address] Nitrite Ql (U) Negative Normal Negative [facility] Comment on above: Order Comment: CLEAN CATCH Performed By: #### L 400.0001 ####[facility] [address] [place], [address] OCCULT BLOOD-UR 10 /ul Abnormal Negative [facility] Comment on above: Order Comment: CLEAN CATCH Performed By: #### L 400.0001 ####[facility] [address] [place], [address] pH UR 6.5 Normal 5.0 - 8.0 [facility] Comment on above: Order Comment: CLEAN CATCH Performed By: #### L 400.0001 ####[facility] [address] [place], [address] PROT DIPSTX Negative Normal Negative [facility] Comment on above: Order Comment: CLEAN CATCH Performed By: #### L 400.0001 ####[facility] [address] [place], [address] SP.GR. DIPSTX 1.005 Normal 1.002-1.03 0 [facility] Comment on above: Order Comment: CLEAN CATCH Performed By: #### L 400.0001 ####[facility] [address] [place], [address] UROBILI Normal Normal Normal [facility] Comment on above: Order Comment: CLEAN CATCH Performed By: #### L 400.0001 ####[facility] [address] [place], [address] BACTERIA 0 SEEN Normal None Seen [facility] Comment on above: Order Comment: CLEAN CATCH Performed By: #### L 400.0001 ####[facility] [address] [place], [address] Mucus Ql (Urine sed) 0 SEEN Normal [facility] Comment on above: Order Comment: CLEAN CATCH Performed By: #### L 400.0001 ####[facility] [address] [place], [address] RBC 0 SEEN Normal 0-5 [facility] Comment on above: Order Comment: CLEAN CATCH Performed By: #### L 400.0001 ####[facility] [address] [place], [address] WBC 0 SEEN Normal 0-5 [facility] Comment on above: Order Comment: CLEAN CATCH Performed By: #### L 400.0001 ####[facility] [address] [place], [address] .GFRon 03-30-2024 GFR 96 ml/min/1.73sqm Normal [facility] Comment on above: Result Comment: GFR Population [...] mL/min/1.73 square meters Performed By: #### C BC, GFR, MORPH, DIFF, CMP ####[facility] [address] [place], [place] [address] GFR Non- 80 ml/min/1.73sqm Normal [facility] Comment on above: Result Comment: GFR Population [...] mL/min/1.73 square meters Performed By: #### C BC, GFR, MORPH, DIFF, CMP ####[address] [address] [place], [place] [address] .Manual Diffon 03-30-2024 Atypical Lymphs 4.0 % Normal 0.0-5.0 [facility] Comment on above: Performed By: #### C BC, GFR, MORPH, DIFF, CMP ####[address] [place], [place] [address] Bands 2.0 % Normal 0.0-5.0 [facility] Comment on above: Performed By: #### C BC, GFR, MORPH, DIFF, CMP ####[place] [address] [place], [place] [address] Basophil %, Manual 0.0 % Normal 0.0-2.5 [facility] Comment on above: Performed By: #### C BC, GFR, MORPH, DIFF, CMP ####[place] [address] [address] Basophil, Abs Manual 0.0 10 3/mcL Normal 0.0-0.2 [facility] Comment on above: Performed By: #### C BC, GFR, MORPH, DIFF, CMP ####[address] [address] Eosinophil %, Manual 0.0 % Normal 0.0-7.0 [facility] Comment on above: Performed By: #### C BC, GFR, MORPH, DIFF, CMP ####[address] [address] Eosinophil, Abs Manual 0.0 10 3/mcL Normal 0.0-0.7 [facility] Comment on above: Performed By: #### C BC, GFR, MORPH, DIFF, CMP ####[address] [address] Lymphocyte %, Manual 55.0 % High 20.0-40.0 [facility] Comment on above: Performed By: #### C BC, GFR, MORPH, DIFF, CMP ####[address] [address] Lymphocyte, Abs Manual 7.1 10 3/mcL High 0.9-4.3 [facility] Comment on above: Performed By: #### C BC, GFR, MORPH, DIFF, CMP ####[address] [address] Monocyte %, Manual 3.0 % Normal 2.0-13.0 [facility] Comment on above: Performed By: #### C BC, GFR, MORPH, DIFF, CMP ####[address] [address] Monocyte, Abs Manual 0.4 10 3/mcL Normal 0.1-1.4 [facility] Comment on above: Performed By: #### C BC, GFR, MORPH, DIFF, CMP ####[place] [address] Neutrophil %, Manual 36.0 % Low 50.0-75.0 [facility] Comment on above: Performed By: #### C BC, GFR, MORPH, DIFF, CMP ####[place] [address] Neutrophil, Abs Manual 4.9 10 3/mcL Normal 2.3-8.1 [facility] Comment on above: Performed By: #### C BC, GFR, MORPH, DIFF, CMP ####[place] [address] Nucleated RBC 0.0 /100 WBC Normal [facility] Comment on above: Performed By: #### C BC, GFR, MORPH, DIFF, CMP ####[place] [address] .Morphon 03-30-2024 Anisocytosis Ql (Bld) 1+ Normal [facility] Comment on above: Performed By: #### C BC, GFR, MORPH, DIFF, CMP #### [place] [address] Ovalocytes 1+ Normal [facility] Comment on above: Performed By: #### C BC, GFR, MORPH, DIFF, CMP #### [place] [address] Platelet Estimate Normal Normal [facility] Comment on above: Performed By: #### C BC, GFR, MORPH, DIFF, CMP #### [place] [address] CBCon 03-30-2024 Erythrocyte distribution width (RBC) [Ratio] 14.2 % Normal 11.5-15.5 [facility] Comment on above: Performed By: #### C BC, GFR, MORPH, DIFF, CMP ####[facility] [address] [place] [address] Hematocrit (Bld) [Volume fraction] 38.6 % Normal 34.0-46.0 [facility] Comment on above: Performed By: #### C BC, GFR, MORPH, DIFF, CMP ####[address] [address] Hgb 13.5 G/dL Normal 12.0-16.0 [facility] Comment on above: Performed By: #### C BC, GFR, MORPH, DIFF, CMP ####[address] [address] MCH (RBC) [Entitic mass] 30.4 pg Normal 27.0-33.0 [facility] Comment on above: Performed By: #### C BC, GFR, MORPH, DIFF, CMP ####[place] [address] [place] [address] MCHC 35.1 G/dL Normal 32.0-36.0 [facility] Comment on above: Performed By: #### C BC, GFR, MORPH, DIFF, CMP ####[address] [address] MCV (RBC) [Entitic vol] 86.8 fL Normal 80.0-99.0 [facility] Comment on above: Performed By: #### C BC, GFR, MORPH, DIFF, CMP ####[address] [address] Platelet 257 10 3/mcL Normal 150-450 [facility] Comment on above: Performed By: #### C BC, GFR, MORPH, DIFF, CMP ####[address] [address] Platelet mean volume (Bld) [Entitic vol] 7.7 fL Normal 6.6-10.5 [facility] Comment on above: Performed By: #### C BC, GFR, MORPH, DIFF, CMP ####[place] [address] [address] [place], [place] [address] RBC 4.44 10 6/mcL Normal 4.10-5.30 [facility] Comment on above: Performed By: #### C BC, GFR, MORPH, DIFF, CMP ####[facility] [address] [place], [place] [address] WBC 13.0 10 3/mcL High 4.5-10.8 [facility] Comment on above: Performed By: #### C BC, GFR, MORPH, DIFF, CMP ####[facility] [address] [place], [place] [address] CMPon 03-30-2024 Albumin Level 4.2 G/dL Normal 3.4-4.8 [facility] Comment on above: Performed By: #### C BC, GFR, MORPH, DIFF, CMP ####[facility] [place], [place] [address] Albumin/Globulin [Mass ratio] 1.6 {ratio} Normal 1.1-2.5 [facility] Comment on above: Performed By: #### C BC, GFR, MORPH, DIFF, CMP ####[place] [place], [place] [address] ALP [Catalytic activity/Vol] 86 U/L Normal 40-135 [facility] Comment on above: Performed By: #### C BC, GFR, MORPH, DIFF, CMP ####[facility] [address] [place], [place] [address] ALT [Catalytic activity/Vol] 37 U/L Normal 14-59 [facility] Comment on above: Performed By: #### C BC, GFR, MORPH, DIFF, CMP ####[place] [address] [place], [place] [address] AST [Catalytic activity/Vol] 36 U/L Normal 10-40 [facility] Comment on above: Performed By: #### C BC, GFR, MORPH, DIFF, CMP ####[place] [address] [place], [place] [address] Bili Total 0.7 mg/dL Normal 0.2-1.0 [facility] Comment on above: Result Comment: Use of this assay is not recommended for patients undergoing treatment with eltrombopag due to the potential for falsely elevated results. Performed By: #### C BC, GFR, MORPH, DIFF, CMP ####[facility] [address] [place], [place] [address] BUN/Creatinine Ratio 14 ratio Normal 7-27 [facility] Comment on above: Performed By: #### C BC, GFR, MORPH, DIFF, CMP ####[facility] [address] [place], [place] [address] Calcium [Mass/Vol] 9.2 mg/dL Normal 8.4-10.2 [facility] Comment on above: Performed By: #### C BC, GFR, MORPH, DIFF, CMP ####[facility] [address] [address] Chloride [Moles/Vol] 79 mmol/L Low 98-107 [facility] Comment on above: Performed By: #### C BC, GFR, MORPH, DIFF, CMP ####[facility] [address] [address] CO2 [Moles/Vol] 28 mmol/L Normal 23-31 [facility] Comment on above: Performed By: #### C BC, GFR, MORPH, DIFF, CMP ####[facility] [address] [address] Creatinine [Mass/Vol] 0.70 mg/dL Normal 0.55-1.02 [facility] Comment on above: Result Comment: Test ing performed on Siemens Dimension EXL analyzer using a modified kinetic Katelin technique. Performed By: #### C BC, GFR, MORPH, DIFF, CMP ####[facility] [address] [address] Electrolyte Balance 8.0 mEq/L Normal 4.0-15.0 [facility] Comment on above: Performed By: #### C BC, GFR, MORPH, DIFF, CMP ####[facility] [address] [place] [address] Globulin 2.7 G/dL Normal [facility] Comment on above: Performed By: #### C BC, GFR, MORPH, DIFF, CMP ####[place] [address] [place] [id number] Glucose [Mass/Vol] 106 mg/dL Normal 83-110 [facility] Comment on above: Performed By: #### C BC, GFR, MORPH, DIFF, CMP ####[facility] [place], [place] [address] Potassium [Moles/Vol] 4.4 mmol/L Normal 3.5-5.1 [facility] Comment on above: Performed By: #### C BC, GFR, MORPH, DIFF, CMP ####[address] [place], [place] [address] Sodium [Moles/Vol] 115 mmol/L Critically abnormal 136-145 [facility] Comment on above: Performed By: #### C BC, GFR, MORPH, DIFF, CMP ####[place] [address] [address] [place], [place] [address] Total Protein 6.9 G/dL Normal 6.4-8.2 [facility] Comment on above: Performed By: #### C BC, GFR, MORPH, DIFF, CMP ####[address] [address] Urea nitrogen [Mass/Vol] 10 mg/dL Normal 7-18 [facility] Comment on above: Performed By: #### C BC, GFR, MORPH, DIFF, CMP ####[address] [address] LABORATORYOrdered By: SYSTEM SYSTEM on 03-30-2024 Albumin BCP dye [Mass/Vol] 4.2 G/dL Normal [...] Bilirubin [Mass/Vol] 0.7 mg/dL Normal 0.2 - 1 .0 mg/dL AO ADM SS Comment on above: Interpretive Data: U se of this assay is not recommended for patients undergoing treatment with eltrombopag due to the potential for falsely elevated results. Calcium [Mass/Vol] 9.2 mg/dL Normal 8.4 - 10. 2 mg/dL AO ADM SS Chloride [Moles/Vol] 79 mmol/L Low 98 - 10 7 mmol/L AO ADM SS CO2 [Moles/Vol] 28 mmol/L Normal 23 - 31 mmol/L AO ADM SS Creatinine [Mass/Vol] 0.70 mg/dL Normal 0.55 - 1.02 mg/dL AO ADM SS Comment on above: Interpretive Data: T esting performed on Siemens Dimension EXL analyzer using a modified kinetic Katelin technique. Electrolyte Balance 8.0 mEq/L Normal 4.0 - 15 .0 mEq/L AO ADM SS Eosinophil %, Manual 0.0 % Normal 0.0 - 7 .0 % AO Workflow SS Eosinophils (Bld) [#/Vol] [...] - 18 mg/dL AO ADM SS Urea nitrogen/Creatinine [Mass ratio] 14 ratio Normal 7 - 27 ratio AO ADM SS Variant lymphocytes/100 WBC (Bld) 4.0 % Normal 0.0 - 5.0 % AO Workflow SS WBC (Bld) [#/Vol] 13.0 103/mcL High 4.5 - 10.8 10^3/mcL AO Workflow SS CBC W/Diff, Automatedon 03-08 PATH REV Reviewed Normal [facility] Comment on above: Order Comment: 1 Result Comment: Yosi Stahl M.D. 03/28/24 AMENDED REPORT 03/28/24 1311 PATH REV previously reported as: October Performed By: #### L 504.2610, L500.4050 #### [facility] [place] [address], [address] Lumbar Spine 2 or 3 Viewson 03-28-2024 Lumbar Spine 2 or 3 Views [facility] [address] [place] [address] Lumbar Spine 2 or 3 Views MR#: [id number] Acct: [id number] Name: BOB MCKENNA Rep #: [id number] : 1940 F 84 From: Malachi smith MD PCP: Dr. Lizzette Apple DO Status: DEP AMB Study: Lumbar Spine 2 or 3 Views Date of Exam: Exam# [id number] Ordering Dr: Katie Suarez [id number] STUDY: X-RAY - LUMBAR SPINE REASON FOR EXAM: Female, 84 years old. LUMBAR DEGENERATIVE DISC DISEASE;HISTORY OF COMPRESSION FRACTURE TECHNIQUE: 2 view(s) of the lumbar spine were obtained. COMPARISON: X-ray the lumbar spine dated October 21, 2023 FINDINGS: Normal lumbar lordosis. Moderate levoscoliosis is present. Chronic and previously treated compression deformities of L2 on L3. No acute fracture is seen. Moderate to severe asymmetric disc space narrowing and degenerative changes due to scoliosis. The soft tissue structures are unremarkable. RAD/Lumbar Spine 2 or 3 Views IMPRESSION: Degenerative changes of the spine, as detailed above. Electronically Signed: Malachi Jackman MD at 12:23 EDT , CC: Katie Suarez; Dr. Lizzette Apple DO Closer On: Signed Normal [facility] Thoracic Spine 2 Viewson Thoracic Spine 2 Views [facility] [address] [place] [address] Thoracic Spine 2 Views MR#: [id number] Acct: [id number] Name: BOB MCKENNA Rep #: [id number] : 1940 F 84 From: Milan shepherd MD PCP: Dr. Lizzette Apple DO Status: DEP AMB Study: Thoracic Spine 2 Views Date of Exam: 03/28/24 Exam# [id number] Ordering Dr: Katie Suarez [id number] STUDY: X-RAY - THORACIC SPINE REASON FOR EXAM: Female, 84 years old. THORACIC SPINE PAIN WITH HISTORY OF COMPRESSION FRACTURE TECHNIQUE: 3 view(s) of the thoracic spine were obtained. COMPARISON: CT of the chest, 08/26/2022, 03/27/2024. FINDINGS: Normal kyphosis of the thoracic spine. There is stable mild retrocardiac scoliosis. There is demineralization of the thoracic spine with endplate spondylosis. There is multilevel disc space narrowing of the thoracic spine. Stable appearance of kyphoplasty cement at L2 and L3. The soft tissue structures are unremarkable. RAD/Thoracic Spine 2 Views IMPRESSION: Scoliosis. Demineralization. Degenerative changes. No definite acute abnormalities. Electronically Signed: Milan Walters MD at 16:21 EDT , CC: Katie Suarez; Dr. Lizzette Apple DO Closer On: Signed Normal [facility] 12 Lead EKGon 03-27-2024 12 Lead EKG [facility] [address] [place] [address] 12 Lead EKG 03/27/242024 MR#: [id number] Acct: [id number] Name: BOB MCKENNA Rep #: [id number] : 1940 84 From: Kamar Hurt MD Attending Dr: Status: DEP ER Ordering Dr: Jaime Peters MD Date: 03/27/24 Location: ED Sex: F C Admitted: Test Reason : CP Blood Pressure : / mmHG Vent. Rate : 077 BPM Atrial Rate : 077 BPM P-R Int : 164 ms QRS Dur : 084 ms QT Int : 348 ms P-R-T Axes : 075 037 057 degrees QTc Int : 393 ms Normal sinus rhythm Normal ECG Confirmed by KATERIN RAMOS, KAMAR ([id number]), editor greeting card PEDRO WAGNER ([id number]) on 03/29/2024 10:02:38 AM Referred By: Confirmed By:KAMAR HURT MD 03/29/241001 Date Kamar Hurt MD CC: Dr. Lizzette Apple DO; Dr. Jamie Peters MD Signed Normal [facility] Basic Metabolic Profile (BMP )on 03-27-2024 BUN/CRE 12.9 RATIO Normal 03-26 [facility] Comment on above: Order Comment: 1 Performed By: #### L 504.2610, L500.4050 #### [facility] [address] [place], [address] CA,Total 9.6 mg/dL Normal 8.5-10.1 [facility] Comment on above: Order Comment: 1 Performed By: #### L 504.2610, L500.4050 #### [facility] [address] [place], [address] Chloride [Moles/Vol] 96 mmol/L Low 98-107 [facility] Comment on above: Order Comment: 1 Performed By: #### L 504.2610, L500.4050 #### [facility] [address] [place], [address] CO2 [Moles/Vol] 28.0 mmol/L Normal 21.0-32.0 [facility] Comment on above: Order Comment: 1 Performed By: #### L 504.2610, L500.4050 #### [facility] [address] [place], [address] Creatinine [Mass/Vol] 0.62 mg/dL Normal 0.55-1.02 [facility] Comment on above: Order Comment: 1 Result Comment: The validity of the calculated GFR GFRAA in patients over 70 years has not been determined. Clinical correlation is essential. Performed By: #### L 504.2610, L500.4050 #### [facility] [address] [place], [address] ECRCL 40.66 ml/min Normal [facility] Comment on above: Order Comment: 1 Performed By: #### L 504.2610, L500.4050 #### [facility] [address] [place], [address] EST GFR - AA 117 mL/min Normal >60 [facility] Comment on above: Order Comment: 1 Result Comment: Afri can Albanian GFR Calc Performed By: #### L 504.2610, L500.4050 #### [facility] [address] [place], [address] GAP 8 Normal 5-15 [facility] Comment on above: Order Comment: 1 Performed By: #### L 504.2610, L500.4050 #### [facility] [address] [place], [address] GFR/1.73 sq M.predicted among non-blacks MDRD (S/P/Bld) [Vol rate/Area] 97 mL/min/{1.73_m2} Normal >60 [facility] Comment on above: Order Comment: 1 Result Comment: Non- GFR Calc Performed By: #### L 504.2610, L500.4050 #### [facility] [address] [place], [address] Glucose [Mass/Vol] 103 mg/dL Normal 74-106 [facility] Comment on above: Order Comment: 1 Result Comment: Fast ing Glucose result from 100 to 125 mg/dL suggests IMPAIRED HOMEOSTASIS per A.D.A. criteria. Performed By: #### L 504.2610, L500.4050 #### [facility] [address] [place], [address] Potassium [Moles/Vol] 3.8 mmol/L Normal 3.5-5.1 [facility] Comment on above: Order Comment: 1 Performed By: #### L 504.2610, L500.4050 #### [facility] [address] [place], [address] Sodium [Moles/Vol] 132 mmol/L Low 136-145 [facility] Comment on above: Order Comment: 1 Performed By: #### L 504.2610, L500.4050 #### [facility] [address] [place], [address] Urea nitrogen [Mass/Vol] 8 mg/dL Normal 7-18 [facility] Comment on above: Order Comment: 1 Performed By: #### L 504.2610, L500.4050 #### [facility] [address] [place], [address] CTA Chest W/WO Contraston CTA Chest W/WO Contrast [facility] Imaging Services [address] [place] [address] CTA Chest W/WO Contrast MR#: [id number] Acct: [id number] Name: BOB MCKENNA Rep #: [id number] : 1940 F 84 From: Franko kearney DO PCP: Dr. Lizzette Apple, DO Status: REG ER Study: CTA Chest W/WO Contrast Date of Exam: 03/27/24 Exam# [id number] Ordering Dr: Jaime Peters MD [id number] EXAM: CT ANGIOGRAPHY CHEST WITHOUT AND WITH INTRAVENOUS CONTRAST CLINICAL INDICATION: PE/aortic dissection -- Severe chest pain radiating through to back, eleva TECHNIQUE: Helically acquired angiography images were obtained of the chest without and with intravenous contrast. This CT exam was performed using one or more of the following dose reduction techniques: automated exposure control, adjustment of the mA and/or kV according to patient size, and/or use of iterative reconstruction technique. MIP reconstructed images were created and reviewed. CONTRAST: IV 100mL [id number] COMPARISON: CT chest, abdomen, pelvis dated 08/26/2022. FINDINGS: PULMONARY ARTERIES: No significant abnormality. Normal in caliber. No evidence of pulmonary embolism. AORTA: Atherosclerosis of the aorta without aneurysm or dissection. GREAT VESSELS OF AORTIC ARCH: No significant abnormality. Normal in caliber. No evidence of dissection. LUNGS AND PLEURAL SPACES: Nonconsolidative pulmonary opacity in the left lower lobe is likely atelectasis or perhaps scarring. No definite pneumonia. Scarring at the right lung apex. No mass. No pleural effusion or thickening. HEART: No significant abnormality. Heart size is normal. No pericardial effusion. No significant coronary artery calcifications. MEDIASTINUM: Enlarged mediastinal lymphadenopathy. Esophagus is unremarkable. No hiatal hernia. THYROID: No significant abnormality. No thyroid lesions. BONES/JOINTS: Multilevel lumbar vertebral augmentation for the treatment of underlying compression fractures. Degenerative changes throughout the visualized axial and appendicular skeletal structures. Scoliotic curvature of the spine. No suspicious lytic or blastic abnormality. LYMPH NODES: Enlarged axillary lymphadenopathy. Conglomerate enlarged retroperitoneal lymphadenopathy. SPLEEN: Splenomegaly. CT/CTA Chest W/WO Contrast IMPRESSION: 1. No evidence of pulmonary artery embolus. No aortic dissection or aneurysm. 2. Nonconsolidative pulmonary opacity in the left lower lobe is likely atelectasis or perhaps scarring. No definite pneumonia. 3. Multilevel lumbar vertebral augmentation for the treatment of underlying compression fractures. Degenerative changes and scoliotic curvature. 4. Extensive lymphadenopathy and splenomegaly. Consider metastatic disease, systemic infection, or lymphoma. Findings are similar to the prior CT examination. Electronically Signed: Franko Rincon DO at 22:05 EDT , CC: Dr. Lizzette Apple DO; Dr. Jaime Peters MD Closer On: Signed Normal [facility] Emergency Department Summary on 03-27-2024 Emergency Department Summary [facility] Medical Records Department [address] [place] [address] Emergency Department Summary 03/27/24 MR#: [id number] Acct: [id number] Name: BOB MCKENNA Rep #: [id number] : 1940 84 From: Jaime Peters MD PCP: Dr. Lizzette Apple DO Status:REG ER Location: ED HPI History of Present Illness Chief Complaint: Chest Pain Detail of Chief Complaint: Chest pain rating to the back and high blood pressure Informant: patient Onset/Context/Timing Onset: Yesterday Context: Sudden Onset Timing: Continuous Quality: Severe anterior chest pain radiating through the back with pleuritic compon Location: Torso Current Severity: Severe Maximum Severity: Severe Worsened by: Breathing Relieved by: Nothing Associated Symptoms Associated Symptoms: Shortness of breath Narrative Narrative: Patient is an 84-year-old woman with history of CLL who presents with acute onset of bilateral anterior severe chest pain question of tearing going through the back associated with shortness of breath and pleuritic component. She denies history of PE or DVT. She is at risk. She has history of hypertension. Her blood pressure is higher than normal. She denies headache, double vision blurred vision loss of vision. She denies rhinorrhea, congestion postnasal drainage sore throat. She denies trauma to the torso. She denies rash to her torso. She denies abdominal pain, nausea, vomiting or diarrhea. She denies hematemesis, melena hematochezia. She denies dysuria, frequency, urgency or hematuria. Prior similar symptoms: No Recent Illness/Hospitalization: No PFSH PFSH Medical History Retroperitoneal lymphadenopathy Abdominal pain Depression Back pain Constipation Wears hearing aid Wears glasses Cancer Thyroid disease Walker as ambulation aid High cholesterol Non-smoker Leg cramps History of echocardiogram History of stress test Cardiology follow-up encounter Cholinesterase deficiency Encounter for education Anemia CLL (chronic lymphocytic leukemia) Hypothyroidism Vertigo Varicose veins of legs Supraclavicular mass Supraclavicular lymphadenopathy Skin lesion of face Skin lesion of neck Stress incontinence Psoriasis Osteoporosis Mitral valve prolapse Low back pain with right-sided sciatica Hyperlipidemia High blood pressure Hematuria Home Medications ???Medication ???Instructions ???Recorded ???Last Taken ???Type ascorbic acid (vitamin C) 100 mg 100 mg PO DAILY 08/14/22 10/20/23 History tablet calcium carbonate 600 mg PO BID 08/14/22 10/20/23 History cholecalciferol (vitamin D3) 10 10 mcg PO DAILY 08/14/22 10/20/23 History mcg (400 unit) capsule lutein 20 mg capsule 20 mg PO DAILY 08/14/22 10/20/23 History magnesium carbonate 1 cap PO DAILY 08/18/22 10/20/23 History polyethylene glycol 3350 17 4 g PO DAILY 02/23/23 10/20/23 History gram/dose oral powder (Miralax) psyllium husk 3.4 gram/5.4 gram 1 tbsp PO DAILY 02/23/23 10/20/23 History oral powder (Metamucil) mecobalamin (vitamin B12) 1,000 1,000 mcg PO Q OTHER DAY 03/01/23 10/20/23 History mcg lozenges levothyroxine 88 mcg capsule 88 mcg PO DAILY 06/01/23 10/20/23 History Disability Placard #1 ea 09/07/23 Unknown Rx zanubrutinib 80 mg capsule 160 mg PO BID 10/18/23 03/20/24 History (Brukinsa) disability placard #1 ea 01/03/24 Unknown Rx losartan 50 mg tablet 50 mg PO QHS 01/03/24 Unknown History docusate sodium 100 mg capsule 100 mg PO BID 03/22/24 Unknown History (Colace) Allergy/AdvReac Type Severity Reaction Status Date / Time No Known Allergies Allergy Verified 03/27/24 20:24 Family History Brother CAD (coronary artery disease) Cancer Hyperlipemia Mother Cancer Leukemia Sister Cancer Sarcoma Surgical History Hx of kyphoplasty S/P abdominal hysterectomy H/O umbilical hernia repair History of tonsillectomy S/P appendectomy Social History Smoking Status: Never smoker alcohol intake: never substance use type: does not use ROS ROS ED Constitutional Constitutional ED: Denies chills, fever(s) or subjective Eyes Eyes: Denies blurry vision or change in vision ENT ENT ED: Denies ear pain or rhinorrhea Cardiovascular Cardiovascular: Reports chest pain; Denies orthopnea, palpitations, paroxysmal nocturnal dyspnea or racing heartbeat Respiratory/Chest Respiratory/Chest: Reports dyspnea and dyspnea on exertion; Denies cough, orthopnea or paroxysmal nocturnal dyspnea Gastrointestinal Gastrointestinal: Denies abdominal pain, constipation, diarrhea, melena, nausea or vomiting Genitourinary Genitourinar (more content not included)... Normal [facility] L501.4020on 03-27-2024 TROPONIN-I HS 8 pg/mL Normal 3.0-54.0 [facility] Comment on above: Order Comment: 1 Result Comment: Maldonado lopez Note: New Test Units and Gender Specific Reference Ranges. For more information see Policy Stat Procedure Alba High Sensitivity Troponin (TNIH) and attachments. Performed By: #### L 504.2610, L500.4050 #### [facility] [address] [place], [place], [address] Atypical lymphocyte percenta geOrdered By: Hortencia Mclaughlin on 03-23-2024 Atypical Lymphocytes 1+ % [facility] CBC W/Diff, Automatedon 03-07 ATYPICAL LYMPH 1+ Normal [facility] Comment on above: Performed By: #### L 504.2610, L500.4050 #### [facility] [address] [place], [address] Comprehensive Metabolic Prof ilon 03-23-2024 Albumin [Mass/Vol] 3.6 g/dL Normal 3.2-5.0 [facility] Comment on above: Order Comment: 1 Performed By: #### L 504.2610, L500.4050 #### [facility] [address] [place], [address] Albumin/Globulin [Mass ratio] 1.2 {ratio} Normal 0.9-2.4 [facility] Comment on above: Order Comment: 1 Performed By: #### L 504.2610, L500.4050 #### [facility] [address] [place], [address] ALK P 69 U/L Normal 45-117 [facility] Comment on above: Order Comment: 1 Performed By: #### L 504.2610, L500.4050 #### [facility] [address] [place], [address] ALT [Catalytic activity/Vol] 18 U/L Normal 13-56 [facility] Comment on above: Order Comment: 1 Performed By: #### L 504.2610, L500.4050 #### [facility] [address] [place], [address] AST [Catalytic activity/Vol] 18 U/L Normal 15-37 [facility] Comment on above: Order Comment: 1 Performed By: #### L 504.2610, L500.4050 #### [facility] [address] [place], [address] Bilirubin [Mass/Vol] 0.60 mg/dL Normal 0.20-1.00 [facility] Comment on above: Order Comment: 1 Result Comment: For patients on eltrombopag therapy, use of Dimension Alba TBIL is not recommended. Performed By: #### L 504.2610, L500.4050 #### [facility] [address] [place], [address] BUN/CRE 12.7 RATIO Normal 10-20 [facility] Comment on above: Order Comment: 1 Performed By: #### L 504.2610, L500.4050 #### [facility] [address] [place], [address] CA,Total 9.1 mg/dL Normal 8.5-10.1 [facility] Comment on above: Order Comment: 1 Performed By: #### L 504.2610, L500.4050 #### [facility] [address] [place], [address] Chloride [Moles/Vol] 98 mmol/L Normal 98-107 [facility] Comment on above: Order Comment: 1 Performed By: #### L 504.2610, L500.4050 #### [facility] [address] [place], [address] CO2 [Moles/Vol] 28.0 mmol/L Normal 21.0-32.0 [facility] Comment on above: Order Comment: 1 Performed By: #### L 504.2610, L500.4050 #### [facility] [address] [place], [address] Creatinine [Mass/Vol] 0.71 mg/dL Normal 0.55-1.02 [facility] Comment on above: Order Comment: 1 Result Comment: The validity of the calculated GFR GFRAA in patients over 70 years has not been determined. Clinical correlation is essential. Performed By: #### L 504.2610, L500.4050 #### [facility] [address] [place], [address] ECRCL 42.53 ml/min Normal [facility] Comment on above: Order Comment: 1 Performed By: #### L 504.2610, L500.4050 #### [facility] [address] [place], [address] EST GFR - AA 101 mL/min Normal >60 [facility] Comment on above: Order Comment: 1 Result Comment: Afri can Albanian GFR Calc Performed By: #### L 504.2610, L500.4050 #### [facility] [address] [place], [address] GAP 6 Normal 5-15 [facility] Comment on above: Order Comment: 1 Performed By: #### L 504.2610, L500.4050 #### [facility] [address] [place], [address] GFR/1.73 sq M.predicted among non-blacks MDRD (S/P/Bld) [Vol rate/Area] 84 mL/min/{1.73_m2} Normal >60 [facility] Comment on above: Order Comment: 1 Result Comment: Non- GFR Calc Performed By: #### L 504.2610, L500.4050 #### [facility] [address] [place], [address] Globulin (S) [Mass/Vol] 3.0 g/dL Normal 2.2-4.2 [facility] Comment on above: Order Comment: 1 Performed By: #### L 504.2610, L500.4050 #### [facility] [address] [place], [address] Glucose [Mass/Vol] 123 mg/dL High 74-106 [facility] Comment on above: Order Comment: 1 Result Comment: Fast ing Glucose result from 100 to 125 mg/dL suggests IMPAIRED HOMEOSTASIS per A.D.A. criteria. Performed By: #### L 504.2610, L500.4050 #### [facility] [address] [place], [address] Potassium [Moles/Vol] 3.9 mmol/L Normal 3.5-5.1 [facility] Comment on above: Order Comment: 1 Performed By: #### L 504.2610, L500.4050 #### [facility] [address] [place], [address] Sodium [Moles/Vol] 132 mmol/L Low 136-145 [facility] Comment on above: Order Comment: 1 Performed By: #### L 504.2610, L500.4050 #### [facility] [address] [place], [address] T PROT 6.6 g/dL Normal 6.4-8.2 [facility] Comment on above: Order Comment: 1 Performed By: #### L 504.2610, L500.4050 #### [facility] [address] [place], [address] Urea nitrogen [Mass/Vol] 9 mg/dL Normal 7-18 [facility] Comment on above: Order Comment: 1 Performed By: #### L 504.2610, L500.4050 #### [facility] [address] [place], [address] LDHon 03-23-2024 LDH 298 U/L High 84-246 [facility] Comment on above: Order Comment: 1 Performed By: #### L 504.2610, L500.4050 #### [facility] [address] 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 She has had no B symptoms. In July 2022 she suffered from COVID infection. She was not fully vaccinated Her family history is notable for mother and sister with leukemias. Her mother lived for several years without any treatment for her leukemia presumably a chronic. CBCs from August 2022 and April 2020 show an absolute lymphocytosis with normal hemoglobin and platelet counts. August 07, 2022 CT neck ([facility]): Bilateral cervical, superior mediastinal and axillary lymphadenopathy. August 26, 2022 CT chest abdomen and pelvis: IMPRESSION: Enlarged bilateral subclavicular and axillary lymph nodes. Enlarged retroperitoneal lymphadenopathy. No splenomegaly. August 18, 2022 peripheral blood: Flow cytometry: Chronic lymphocytic leukemia, CD20, 22, and 19 positive negative CD38. FISH panel: Trisomy 12 and loss of 1T p53 signal. CCND1/IGH, 13q, and NIC were normal. Treatment summary and response: Zanubrutinib March 22, 2023 OR Interval History The patient is presenting to clinic for a 12 week follow-up. Confirms she taking zanubrutinib 160 mg twice daily as advised. Concerns today include left sided abd pain and constipation. Describes pain as fullness and bloating Takes Metamucil and Miralax daily. Was given an rx for stool softener per her pcp. Reports a daily BM in the morning but a second BM in the afternoon is sluggish. Abd pain improves with initial BM but does not resolve completely. Estimates 64 oz PO fluid intake daily. Appetite good. Specifically denies any reoccurrence of pruritic rash, dysphagia, headaches, cough, shortness of breath, chest pain, palpitations, diarrhea, nausea, easy bruising, abdominal pain episodes of bleeding or abnormal bruising, and swelling pain of her extremities. [facility] Medical History Retroperitoneal lymphadenopathy Abdominal pain Depression Back pain Constipation Wears hearing aid Wears glasses Cancer Thyroid disease Walker as ambulation aid High cholesterol Non-smoker Leg cramps History of echocardiogram History of stress test Cardiology follow-up encounter Cholinesterase deficiency Encounter for education Anemia CLL (chronic lymphocytic leukemia) Hypothyroidism Vertigo Varicose veins of legs Supraclavicular mass Supraclavicular lymphadenopathy Skin lesion of face Skin lesion of neck Stress incontinence Psoriasis Osteoporosis Mitral valve prolapse Low back pain with right-sided sciatica Hyperlipidemia High blood pressure Hematuria Surgical History Hx of kyphoplasty S/P abdominal hysterectomy H/O umbilical hernia repair History of tonsillectomy S/P appendectomy Family History Brother CAD (coronary artery disease) Cancer Hyperlipemia Mother Cancer Leukemia Sister Cancer Sarcoma Social History Smoking Status: Never smoker alcohol intake: never substance use type: does not use ROS ROS Narrative Negative except as documented in the interval HPI Intake Vital Signs 01/03/24 14:46 03/23/24 13:50 03/23/24 13:54 Height 5 ft 3 in 5 ft 3 in 5 ft 3 in Weight: 127 lb 5 oz BMI 22.5 BP 115/78 Blood Pressure Location Lt brachial Position Sitting Respiration 18 Pulse 70 Pulse Source Monitor Temp 97.7 F L Temperature Source Temporal Artery Pulse Oximetry (%) 99 Oxygen Delivery Method room air Intake Is patient in pain?: No Allergies No Known Allergies Allergy (Verified 03/27/24 20:24) Medications ???Medication ???Instructions ???Recorded ???Confirmed ???Type ascorbic acid (vitamin C) 100 mg 100 mg PO DAILY 08/14/22 03/27/24 History tablet calcium carbonate 600 mg PO BID 08/14/22 03/27/24 History cholecalciferol (vitamin D3) 10 10 mcg PO DAILY 08/14/22 03/27/24 History mcg (400 unit) capsule lutein 20 mg capsule 20 mg PO DAILY 08/14/22 03/27/24 History magnesium carbonate 1 cap PO DAILY 08/18/22 03/27/24 History polyethylene glycol 3350 17 4 g PO DAILY 02/23/23 03/27/24 History gram/dose oral powder (Miralax) psyllium husk 3.4 gram/5.4 gram 1 tbsp PO DAILY 02/23/23 03/27/24 History (more content not included)... Normal [facility] LABORATORYOrdered By: SYSTEM SYSTEM on 02-14-2024 TSH Qn 1.32 m[IU]/L Normal 0.36 - 3.74 mcIU/mL AO ADM SS TSHRon 02-14-2024 TSH Qn 1.32 m[IU]/L Normal 0.36-3.74 [facility] Comment on above: Performed By: #### T [facility] #### [address] [address] Cerv Spine 2 or 3 Viewson Cerv Spine [address] [facility] Imaging Services [address] [place], [place] [id number] Cerv Spine 2 or 3 Views MR#: [id number] Acct: [id number] Name: BOB MCKENNA Rep #: [id number] : 1940 F 83 From: Jon Bell MD PCP: Dr. Lizzette Apple DO Status: REG CLI Study: Cerv Spine 2 or 3 Views Date of Exam: 01/18/24 Exam# [id number] Ordering Dr: Antonina Lisa MD [id number] STUDY: X-RAY - CERVICAL SPINE REASON FOR EXAM: Female, 83 years old. PAIN TECHNIQUE: 3 view(s) of the cervical spine were obtained. COMPARISON: None FINDINGS: Normal anterior atlantoaxial articulation. Normal odontoid process. Normal cervical lordosis. There is multi-level endplate spondylosis. There is multi-level degenerative disc disease with multilevel disc space narrowing. Normal visualized intervertebral neuroforamina. The soft tissue structures are unremarkable. RAD/Cerv Spine 2 or 3 Views IMPRESSION: Moderate degenerative disc disease of the lower cervical spine. Electronically Signed: Jon Bell MD at 12:18 EDT , CC: Dr. Antonina Lisa MD; Dr. Lizzette Apple DO Closer On: Signed Normal [facility] Reactive lymphocyte countOrd ered By: Hortencia Mclaughlin on 01-03-2024 Reactive Lymphocytes 2+ [facility] .GFRon 12-16-2023 GFR 111 ml/min/1.73sqm Normal [facility] ([place]) Comment on above: Result Comment: GFR Population [...] L IPID, VIDH, CMP, TSH, GFR #### [address] [address] GFR Non- 92 ml/min/1.73sqm Normal [facility] ([place]) Comment on above: Result Comment: GFR Population [...] L IPID, VIDH, CMP, TSH, GFR #### [address] [address] CMPon 12-16-2023 Albumin Level 3.8 G/dL Normal 3.4-4.8 [facility] ([place]) Comment on above: Performed By: #### L IPID, VIDH, CMP, TSH, GFR #### [address] [address] Albumin/Globulin [Mass ratio] 1.5 {ratio} Normal 1.1-2.5 [facility] ([place]) Comment on above: Performed By: #### L IPID, VIDH, CMP, TSH, GFR #### [address] [address] ALP [Catalytic activity/Vol] 77 U/L Normal 40-135 [facility] ([place]) Comment on above: Performed By: #### L IPID, VIDH, CMP, TSH, GFR #### [address] [address] ALT [Catalytic activity/Vol] 21 U/L Normal 14-59 [facility] ([place]) Comment on above: Performed By: #### L IPID, VIDH, CMP, TSH, GFR #### [address] [address] AST [Catalytic activity/Vol] 12 U/L Normal 10-40 [facility] ([place]) Comment on above: Performed By: #### L IPID, VIDH, CMP, TSH, GFR #### [address] [address] Bili Total 0.4 mg/dL Normal 0.2-1.0 [facility] ([place]) Comment on above: Result Comment: Use of this assay is not recommended for patients undergoing treatment with eltrombopag due to the potential for falsely elevated results. Performed By: #### L IPID, VIDH, CMP, TSH, GFR #### [address] [address] BUN/Creatinine Ratio 18 ratio Normal 7-27 [facility] ([place]) Comment on above: Performed By: #### L IPID, VIDH, CMP, TSH, GFR #### [address] [address] Calcium [Mass/Vol] 9.7 mg/dL Normal 8.4-10.2 Pending [facility] to [facility] ([place]) Comment on above: Performed By: #### L IPID, VIDH, CMP, TSH, GFR #### [address] [address] Chloride [Moles/Vol] 100 mmol/L Normal 98-107 [facility] ([place]) Comment on above: Performed By: #### L IPID, VIDH, CMP, TSH, GFR #### [address] [address] CO2 [Moles/Vol] 30 mmol/L Normal 23-31 [facility] ([place]) Comment on above: Performed By: #### L IPID, VIDH, CMP, TSH, GFR #### [address] [address] Creatinine [Mass/Vol] 0.62 mg/dL Normal 0.55-1.02 [facility] ([place]) Comment on above: Performed By: #### L IPID, VIDH, CMP, TSH, GFR #### [address] [address] Electrolyte Balance 7.0 mEq/L Normal 4.0-15.0 [facility] ([place]) Comment on above: Performed By: #### L IPID, VIDH, CMP, TSH, GFR #### [address] [address] Globulin 2.6 G/dL Normal [facility] ([place]) Comment on above: Performed By: #### L IPID, VIDH, CMP, TSH, GFR #### [address] [address] Glucose [Mass/Vol] 90 mg/dL Normal 83-110 P[facility] to [facility] ([place]) Comment on above: Performed By: #### L IPID, VIDH, CMP, TSH, GFR #### [address] [address] Potassium [Moles/Vol] 4.8 mmol/L Normal 3.5-5.1 [facility] ([place]) Comment on above: Performed By: #### L IPID, VIDH, CMP, TSH, GFR #### [place] [address] Sodium [Moles/Vol] 137 mmol/L Normal 136-145 [facility] to [facility] ([place]) Comment on above: Performed By: #### L IPID, VIDH, CMP, TSH, GFR #### [address] [address] Total Protein 6.4 G/dL Normal 6.4-8.2 [facility] ([place]) Comment on above: Performed By: #### L IPID, VIDH, CMP, TSH, GFR #### [address] [address] Urea nitrogen [Mass/Vol] 11 mg/dL Normal 7-18 [facility] ([place]) Comment on above: Performed By: #### L IPID, VIDH, CMP, TSH, GFR #### [address] [address] FT4on 12-16-2023 Free T4 [Mass/Vol] 1.72 ng/dL High 0.76-1.46 [facility] to [facility] ([place]) Comment on above: Order Comment: Order ed by Discern Performed By: #### L IPID, VIDH, CMP, TSH, GFR #### [address] [address] LIPIDon 12-16-2023 Cholesterol [Mass/Vol] 211 mg/dL High 0-200 [facility] ([place]) Comment on above: Result Comment: Chol esterol Reference Interval: Less than 200 Desirable 200-239 Borderline high risk 240 and above High risk Performed By: #### L IPID, VIDH, CMP, TSH, GFR #### [address] [address] Cholesterol in HDL [Mass/Vol] 70 mg/dL High 40-60 [facility] ([place]) Comment on above: Performed By: #### L IPID, VIDH, CMP, TSH, GFR #### [address] [address] Cholesterol in LDL [Mass/Vol] 132 mg/dL High 0-130 [facility] ([place]) Comment on above: Performed By: #### L IPID, VIDH, CMP, TSH, GFR #### [place] [address] [place], [place] [address] Triglyceride [Mass/Vol] 45 mg/dL Normal 0-150 [facility] ([place]) Comment on above: Result Comment: Trig lyceride Reference Interval: Less than 150 Normal 150-199 Borderline high risk 200-499 High risk 500 or higher Very high risk Performed By: #### L IPID, VIDH, CMP, TSH, GFR #### [address] [address] TSHRon 12-16-2023 TSH Qn 0.24 m[IU]/L Low 0.36-3.74 [facility] ([place]) Comment on above: Performed By: #### L IPID, VIDH, CMP, TSH, GFR #### [address] [address] VIDHon 12-16-2023 Vit. D 25-Hydroxy 72.7 ng/mL Normal [facility] ([place]) Comment on above: Result Comment: Inte rpretive Values Based on Total 25(OH) Vitamin D: Deficient <20 ng/mL Insufficient 20 - <30 ng/mL Sufficient 30-100 ng/mL Performed By: #### L IPID, VIDH, CMP, TSH, GFR #### [address] [address] No Panel Informationon 11-21 Culture Urine <10,000 cfu/ml. No Significant growth. Sensitivity not indicated. 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 Interpreted by: Nii Munoz MD Preliminary Report By: Nii Munoz MD Electronically signed By Nii Munoz MD Dictated Date: 11/09/2023 11:42:34 AM Prelim Date: 11/09/2023 11:44:06 AM Sign Date: 11/09/2023 11:44:06 AM Ordering Provider: LIZZETTE APPLE ADDENDUM ADDENDUM: The entirety of the addendum was not included. 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 The vaginal cuff is slightly prominent, mistaken for uterus at the time of original dictation. The vaginal cuff is very similar to the previous study and is considered within normal limits for this patient. Interpreted by: Nii Munoz MD Preliminary Report By: Nii Munoz MD Electronically signed By Nii Munoz MD Dictated Date: 11/09/2023 2:11:40 PM Prelim Date: 11/09/2023 2:21:26 PM Sign Date: 11/09/2023 2:21:26 PM Ordering Provider: LIZZETTE APPLE ORIGINAL EXAMINATION: CT OF THE ABDOMEN AND [...] resident's findings and interpretation. Interpreted by: Nii Munoz MD Preliminary Report By: Markell Jimenez Electronically signed By Nii Munoz MD Dictated Date: 11/08/2023 2:48:52 PM Prelim Date: 11/08/2023 3:25:32 PM Sign Date: 11/08/2023 3:25:32 PM Ordering Provider: LIZZETTE APPLE [facility] ([place]) XR ABDOMEN APon 11-03-2023 XR ABDOMEN AP [...] Date: 11/03/2023 10:51:20 AM Ordering Provider: LIZZETTE APPLE [facility] ([place]) Blood manual differential co mment interpretation (narrative result)Ordered By: Hortencia Mclaughlin on 11-02-2023 Manual differential comment Bobby (Bld) [Interp] [facility] Comment on above: LYMPHOCYTOSIS Manual differential comment Bobby (Bld) [Interp]Ordered By: Hortencia Mclaughlin on 11-02-2023 Differential Comment SCANNED [facility] Comment on above: LYMPHOCYTOSIS Pathologist review Bobby (Unsp spec) [Interp]Ordered By: Hortencia Mclaughlin on 11-02-2023 Differential Pathologist's Review Reviewed [facility] Comment on above: Previous reported re sult: Luzmaria foster Edited by: BETTY on 11/03/23:1405ABSOLUTE LYMPHOCYTOSIS CONSISTENT WITH CLL/SLLNormocytic anemia.Clinical correlation necessary.Rito Rose D.O. 11/03/23 AMENDED REPORT 11/03/23 1405 PATH REV previously reported as: Luzmaria foster Review by pathologistOrdered By: Hortencia Mclaughlin on 11-02-2023 Pathologist review Bobby (Unsp spec) [Interp] Reviewed [facility] Comment on above: Previous reported re sult: Luzmaria kristin Edited by: BETTY on 11/03/23:1405ABSOLUTE LYMPHOCYTOSIS CONSISTENT WITH CLL/SLLNormocytic anemia.Clinical correlation necessary.Rito Rose D.O. 11/03/23 AMENDED REPORT 11/03/23 1405 PATH REV previously reported as: Luzmaria foster BD BONE DENSITY DEXA AXIAL S [facility] 10-13-2023 BD BONE DENSITY DEXA AXIAL [...] 10/13/2023 12:23:18 PM Ordering Provider: BENITO Nunez [facility] ([place]) .Auto Diffon 10-04-2023 Basophil, Absolute 0.1 10 3/mcL Normal 0.0-0.2 [facility] ([place]) Comment on above: Performed By: #### L IPID, VIDH, CMP, TSH, GFR #### [address] [address] Basophils/100 WBC (Bld) 1.2 % Normal 0.0-2.5 [facility] ([place]) Comment on above: Performed By: #### L IPID, VIDH, CMP, TSH, GFR #### [address] [address] Eosinophil, Absolute 0.1 10 3/mcL Normal 0.0-0.4 [facility] ([place]) Comment on above: Performed By: #### L IPID, VIDH, CMP, TSH, GFR #### [address] [address] Eosinophils/100 WBC (Bld) 0.5 % Normal 0.0-7.0 [facility] ([place]) Comment on above: Performed By: #### L IPID, VIDH, CMP, TSH, GFR #### [address] [address] Lymphocyte, Absolute 6.0 10 3/mcL High 0.8-3.9 [facility] ([place] Comment on above: Performed By: #### L IPID, VIDH, CMP, TSH, GFR #### [address] [address] Lymphocytes/100 WBC (Bld) 58.6 % High 10.0-50.0 [facility] ([place]) Comment on above: Performed By: #### L IPID, VIDH, CMP, TSH, GFR #### [address] [address] Monocyte, Absolute 0.6 10 3/mcL Normal 0.2-1.0 [facility] ([place]) Comment on above: Performed By: #### L IPID, VIDH, CMP, TSH, GFR #### [address] [address] Monocytes/100 WBC (Bld) 6.1 % Normal 1.7-13.0 [facility] ([place]) Comment on above: Performed By: #### L IPID, VIDH, CMP, TSH, GFR #### [address] [address] Neutrophils/100 WBC (Bld) 33.6 % Low 37.0-80.0 [facility] ([place]) Comment on above: Performed By: #### L IPID, VIDH, CMP, TSH, GFR #### [address] [address] .GFRon 10-04-2023 GFR 113 ml/min/1.73sqm Normal [facility] ([place]) Comment on above: Result Comment: GFR Population [...] L IPID, VIDH, CMP, TSH, GFR #### [address] [address] GFR Non- 93 ml/min/1.73sqm Normal [facility] ([place]) Comment on above: Result Comment: GFR Population [...] L IPID, VIDH, CMP, TSH, GFR #### [address] [address] .MDWon 10-04-2023 Monocyte Distribution Width 20.45 High 0.00-20.00 [facility] ([place]) Comment on above: Result Comment: For adults in ED, MDW>20.0 may be associated with a higher risk of sepsis during the first 12hrs of hospital admission The predictive value of MDW for identifying sepsis in patients with hematological abnormalities has not been established Performed By: #### L IPID, VIDH, CMP, TSH, GFR #### [address] [address] .Manual Diffon 10-04-2023 Bands 1.0 % Normal 0.0-5.0 [facility] ([place]) Comment on above: Performed By: #### L IPID, VIDH, CMP, TSH, GFR #### [address] [address] Basophil %, Manual 0.0 % Normal 0.0-2.5 [facility] to [facility] ([place]) Comment on above: Performed By: #### L IPID, VIDH, CMP, TSH, GFR #### [address] [address] Basophil, Abs Manual 0.0 10 3/mcL Normal 0.0-0.2 [facility] ([place] Comment on above: Performed By: #### L IPID, VIDH, CMP, TSH, GFR #### [address] [address] Eosinophil %, Manual 0.0 % Normal 0.0-7.0 [facility] ([place]) Comment on above: Performed By: #### L IPID, VIDH, CMP, TSH, GFR #### [address] [address] Eosinophil, Abs Manual 0.0 10 3/mcL Normal 0.0-0.4 [facility] ([place] Comment on above: Performed By: #### L IPID, VIDH, CMP, TSH, GFR #### [address] [address] Lymphocyte %, Manual 63.0 % High 10.0-50.0 [facility] ([place]) Comment on above: Performed By: #### L IPID, VIDH, CMP, TSH, GFR #### [address] [address] Lymphocyte, Abs Manual 6.4 10 3/mcL High 0.8-3.9 [facility] ([place]) Comment on above: Performed By: #### L IPID, VIDH, CMP, TSH, GFR #### [address] [address] Monocyte %, Manual 3.0 % Normal 1.7-13.0 [facility] to [facility] ([place]) Comment on above: Performed By: #### L IPID, VIDH, CMP, TSH, GFR #### [address] [address] Monocyte, Abs Manual 0.3 10 3/mcL Normal 0.2-1.0 [facility] ([place] Comment on above: Performed By: #### L IPID, VIDH, CMP, TSH, GFR #### [address] [address] Neutrophil %, Manual 33.0 % Low 37.0-80.0 [facility] ([place]) Comment on above: Performed By: #### L IPID, VIDH, CMP, TSH, GFR #### [place] [address] Neutrophil, Abs Manual 3.4 10 3/mcL Normal 2.9-6.2 [facility] ([place]) Comment on above: Performed By: #### L IPID, VIDH, CMP, TSH, GFR #### [place] [address] Nucleated RBC 0.0 /100 WBC Normal [facility] ([place] Comment on above: Performed By: #### L IPID, VIDH, CMP, TSH, GFR #### [address] [address] .Morphon 10-04-2023 Platelet Estimate Normal Normal [facility] ([place]) Comment on above: Performed By: #### L IPID, VIDH, CMP, TSH, GFR #### [address] [address] .NEUABSon 10-04-2023 Neutrophil, Absolute 3.4 10 3/mcL Normal 2.9-6.2 [facility] ([place] Comment on above: Performed By: #### L IPID, VIDH, CMP, TSH, GFR #### [address] [address] CBCon 10-04-2023 Erythrocyte distribution width (RBC) [Ratio] 14.6 % High 11.5-14.5 [facility] ([place] Comment on above: Performed By: #### L IPID, VIDH, CMP, TSH, GFR #### [address] [address] Hematocrit (Bld) [Volume fraction] 34.9 % Low 37.0-47.0 [facility] ([place] Comment on above: Performed By: #### L IPID, VIDH, CMP, TSH, GFR #### [place] [address] Hgb 12.1 G/dL Normal 12.0-16.0 [facility] ([place] Comment on above: Performed By: #### L IPID, VIDH, CMP, TSH, GFR #### [place] [address] MCH (RBC) [Entitic mass] 30.2 pg Normal 27.0-31.2 [facility] ([place] Comment on above: Performed By: #### L IPID, VIDH, CMP, TSH, GFR #### [place] [address] MCHC 34.5 G/dL Normal 33.0-37.0 [facility] ([place] Comment on above: Performed By: #### L IPID, VIDH, CMP, TSH, GFR #### [place] [address] MCV (RBC) [Entitic vol] 87.5 fL Normal 80.0-94.0 [facility] ([place] Comment on above: Performed By: #### L IPID, VIDH, CMP, TSH, GFR #### [place] [address] Platelet 260 10 3/mcL Normal 130-400 [facility] ([place] Comment on above: Performed By: #### L IPID, VIDH, CMP, TSH, GFR #### [place] [id number] Platelet mean volume (Bld) [Entitic vol] 8.0 fL Normal 7.4-10.4 [facility] [place] Comment on above: Performed By: #### L IPID, VIDH, CMP, TSH, GFR #### [address] [address] RBC 3.99 10 6/mcL Low 4.20-5.40 [facility] ([place] Comment on above: Performed By: #### L IPID, VIDH, CMP, TSH, GFR #### [address] [address] WBC 10.2 10 3/mcL Normal 4.6-10.8 [facility] ([place] Comment on above: Performed By: #### L IPID, VIDH, CMP, TSH, GFR #### [address] [address] CMPon 10-04-2023 Albumin Level 4.0 G/dL Normal 3.4-4.8 [facility] ([place]) Comment on above: Performed By: #### L IPID, VIDH, CMP, TSH, GFR #### [place] [id number] Albumin/Globulin [Mass ratio] 1.4 {ratio} Normal 1.1-2.5 [facility] ([place] Comment on above: Performed By: #### L IPID, VIDH, CMP, TSH, GFR #### [address] [address] ALP [Catalytic activity/Vol] 88 U/L Normal 40-135 [facility] ([place]) Comment on above: Performed By: #### L IPID, VIDH, CMP, TSH, GFR #### [address] [address] ALT [Catalytic activity/Vol] 25 U/L Normal 14-59 [facility] ([place]) Comment on above: Performed By: #### L IPID, VIDH, CMP, TSH, GFR #### [address] [address] AST [Catalytic activity/Vol] 21 U/L Normal 10-40 [facility] ([place] Comment on above: Performed By: #### L IPID, VIDH, CMP, TSH, GFR #### [place] [id number] Bili Total 0.5 mg/dL Normal 0.2-1.0 [facility] ([place] Comment on above: Result Comment: Use of this assay is not recommended for patients undergoing treatment with eltrombopag due to the potential for falsely elevated results. Performed By: #### L IPID, VIDH, CMP, TSH, GFR #### [place] [id number] BUN/Creatinine Ratio 20 ratio Normal 7-27 [facility] ([place]) Comment on above: Performed By: #### L IPID, VIDH, CMP, TSH, GFR #### [address] [address] Calcium [Mass/Vol] 9.2 mg/dL Normal 8.4-10.2 P[facility] to [facility] ([place]) Comment on above: Performed By: #### L IPID, VIDH, CMP, TSH, GFR #### [place] [id number] Chloride [Moles/Vol] 98 mmol/L Normal 98-107 [facility] ([place]) Comment on above: Performed By: #### L IPID, VIDH, CMP, TSH, GFR #### [place] [id number] CO2 [Moles/Vol] 32 mmol/L High 23-31 [facility] ([place] Comment on above: Performed By: #### L IPID, VIDH, CMP, TSH, GFR #### [address] [address] Creatinine [Mass/Vol] 0.61 mg/dL Normal 0.55-1.02 [facility] ([place]) Comment on above: Performed By: #### L IPID, VIDH, CMP, TSH, GFR #### [address] [address] Electrolyte Balance 7.0 mEq/L Normal 4.0-15.0 [facility] ([place]) Comment on above: Performed By: #### L IPID, VIDH, CMP, TSH, GFR #### [address] [address] Globulin 2.9 G/dL Normal [facility] ([place]) Comment on above: Performed By: #### L IPID, VIDH, CMP, TSH, GFR #### [address] [address] Glucose [Mass/Vol] 85 mg/dL Normal 83-110 P[facility] to [facility] [place]) Comment on above: Performed By: #### L IPID, VIDH, CMP, TSH, GFR #### [address] [address] Potassium [Moles/Vol] 4.0 mmol/L Normal 3.5-5.1 [facility] ([place] Comment on above: Performed By: #### L IPID, VIDH, CMP, TSH, GFR #### [address] [address] Sodium [Moles/Vol] 137 mmol/L Normal 136-145 P[facility] to [facility] ([place]) Comment on above: Performed By: #### L IPID, VIDH, CMP, TSH, GFR #### [address] [address] Total Protein 6.9 G/dL Normal 6.4-8.2 [facility] ([place] Comment on above: Performed By: #### L IPID, VIDH, CMP, TSH, GFR #### [address] [address] Urea nitrogen [Mass/Vol] 12 mg/dL Normal 7-18 [facility] ([place] Comment on above: Performed By: #### L IPID, VIDH, CMP, TSH, GFR #### [address] [address] [address] ABD/PELVIS W/ IV CONTRAST ONLYon 10-04-2023 [...] the superior L4 endplate. Interpreted by: Nii Munoz MD Preliminary Report By: Nii Munoz MD Electronically signed By Nii Munoz MD Dictated Date: 10/04/2023 12:03:17 PM Prelim Date: 10/04/2023 12:06:02 PM Sign Date: 10/04/2023 12:06:02 PM Ordering Provider: LEONARDO [facility] ([place] LABORATORYOrdered By: SYSTEM SYSTEM on 10-04-2023 Albumin [...] Abs Manual 0.0 103/mcL Normal 0.0 - 0 .2 10^3/mcL AO Workflow SS Basophil, Absolute 0.1 103/mcL Normal 0.0 - 0.2 10^3/mcL AO Workflow SS Basophils/100 WBC (Bld) 1.2 % Normal 0.0 - 2.5 % AO Workflow SS Bilirubin [Mass/Vol] 0.5 mg/dL Normal 0.2 - 1 .0 mg/dL AO ADM SS Comment on above: Interpretive Data: U se of this assay is not recommended for patients undergoing treatment with eltrombopag due to the potential for falsely elevated results. Calcium [Mass/Vol] 9.2 mg/dL Normal 8.4 - 10. 2 mg/dL AO ADM SS Chloride [Moles/Vol] 98 mmol/L Normal 98 - 10 7 mmol/L AO ADM SS CO2 [Moles/Vol] 32 mmol/L High 23 - 31 mmol/L AO ADM SS Creatinine [Mass/Vol] 0.61 mg/dL Normal 0.55 - 1.02 mg/dL AO ADM SS Electrolyte Balance 7.0 mEq/L Normal 4.0 - 15 .0 mEq/L AO ADM SS Eosinophil %, Manual 0.0 % Normal 0.0 - 7 .0 % AO Workflow SS Eosinophil, Absolute 0.1 103/mcL Normal 0.0 - 0 .4 10^3/mcL AO Workflow SS Eosinophils (Bld) [#/Vol] [...] Lymphocyte, Absolute 6.0 103/mcL High 0.8 - 3 .9 10^3/mcL AO Workflow SS Lymphocytes/100 WBC (Bld) [...] Abs Manual 0.3 103/mcL Normal 0.2 - 1 .0 10^3/mcL AO Workflow SS Monocyte, Absolute 0.6 103/mcL Normal 0.2 - 1.0 10^3/mcL AO Workflow SS Monocytes/100 WBC (Bld) 6.1 % Normal 1.7 - 13.0 % AO Workflow SS Neutrophil %, Manual 33.0 % Low 37.0 - 80.0 % AO Workflow SS Neutrophil, Abs Manual 3.4 103/mcL Normal 2.9 - 6.2 10^3/mcL AO Workflow SS Neutrophil, Absolute 3.4 103/mcL Normal 2.9 - 6 .2 10^3/mcL AO Workflow SS Neutrophils/100 WBC (Bld) [...] - 18 mg/dL AO ADM SS Urea nitrogen/Creatinine [Mass ratio] 20 ratio Normal 7 - [...] 10-04-2023 Lipase Level 25 U/L Normal 16-77 [facility] ([place]) Comment on above: Performed By: #### L IPID, VIDH, CMP, TSH, GFR #### [address] [address] UAon 10-04-2023 Color (U) Yellow Normal [facility] ([place] Comment on above: Performed By: #### U A #### [address] [address] Glucose (U) [Mass/Vol] Negative Normal Negative [facility] ([place] Comment on above: Performed By: #### U A #### [address] [address] Ketones Ql (U) Negative Normal Negative [facility] ([place] Comment on above: Performed By: #### U A #### [address] [address] UA Appear Clear Normal Clear [facility] ([place] Comment on above: Performed By: #### U A #### [address] [address] UA Blood Trace Abnormal Negative [facility] ([place] Comment on above: Performed By: #### U A #### [place] [address] UA Leuk Est Negative Normal Negative [facility] ([place] Comment on above: Performed By: #### U A #### [place] [address] UA Nitrite Negative Normal Negative [facility] ([place] Comment on above: Performed By: #### U A #### [address] [address] UA pH 7.0 Normal 5.0 - 8.0 [facility] ([place] Comment on above: Performed By: #### U A #### [address] [address] UA Protein Negative Normal Negative [facility] ([place] Comment on above: Performed By: #### U A #### [address] [address] UA Spec Grav 1.015 Normal 1.015-1.02 5 [facility] ([place] Comment on above: Performed By: #### U A #### [address] [address] UA Specimen Type Clean Catch Normal [facility] ([place] Comment on above: Performed By: #### U A #### [place] [address] UA Urobilinogen 0.2 E.U./dL Normal 0.2-1.0 [facility] ([place] Comment on above: Performed By: #### U A #### [address] [address] Urobilinogen (U) [Mass/Vol] Negative Normal Negative [facility] ([place] Comment on above: Performed By: #### U A #### [address] [address] .GFRon 09-28-2023 GFR 92 ml/min/1.73sqm Normal [facility] ([place]) Comment on above: Result Comment: GFR Population [...] L IPID, VIDH, CMP, TSH, GFR #### [address] [address] GFR Non- 76 ml/min/1.73sqm Normal [facility] ([place] Comment on above: Result Comment: GFR Population [...] L IPID, VIDH, CMP, TSH, GFR #### [address] [address] BMPon 09-28-2023 BUN/Creatinine Ratio 14 ratio Normal 7-27 [facility] ([place]) Comment on above: Performed By: #### B MP, TSH, GFR #### [address] [address] Calcium [Mass/Vol] 9.2 mg/dL Normal 8.4-10.2 P[facility] to [facility] [place] Comment on above: Performed By: #### B MP, TSH, GFR #### [address] [address] Chloride [Moles/Vol] 101 mmol/L Normal 98-107 [facility] ([place] Comment on above: Performed By: #### B MP, TSH, GFR #### [address] [address] CO2 [Moles/Vol] 30 mmol/L Normal 23-31 [facility] ([place] Comment on above: Performed By: #### B MP, TSH, GFR #### [address] [address] Creatinine [Mass/Vol] 0.73 mg/dL Normal 0.55-1.02 [facility] ([place]) Comment on above: Performed By: #### B MP, TSH, GFR #### [address] [address] Electrolyte Balance 6.0 mEq/L Normal 4.0-15.0 [facility] ([place]) Comment on above: Performed By: #### B MP, TSH, GFR #### [address] [address] Glucose [Mass/Vol] 91 mg/dL Normal 83-110 P[facility] to [facility] [place] Comment on above: Performed By: #### B MP, TSH, GFR #### [address] [address] Potassium [Moles/Vol] 4.8 mmol/L Normal 3.5-5.1 [facility] ([place] Comment on above: Performed By: #### B MP, TSH, GFR #### [address] [address] Sodium [Moles/Vol] 137 mmol/L Normal 136-145 P[facility] to [facility] ([place]) Comment on above: Performed By: #### B MP, TSH, GFR #### [address] [address] Urea nitrogen [Mass/Vol] 10 mg/dL Normal 7-18 [facility] ([place]) Comment on above: Performed By: #### B MP, TSH, GFR #### [address] [address] TSHon 09-28-2023 TSH Qn 0.45 m[IU]/L Normal 0.36-3.74 [facility] ([place]) Comment on above: Performed By: #### B MP, TSH, GFR #### [address] [address] [address] ABDOMEN/PELVIS W/O CONTRA STon 09-27-2023 CT [...] resident's findings and interpretation. Interpreted by: Nii Munoz MD Preliminary Report By: Govind Mckee Electronically signed By Nii Munoz MD Dictated Date: 09/27/2023 8:03:16 AM Prelim Date: 09/27/2023 10:30:24 AM Sign Date: 09/27/2023 10:30:24 AM Ordering Provider: LEONARDO MEJIA [facility] ([place]) XR HIP 2-3 VIEWS LEFTon -0 XR HIP 2-3 VIEWS LEFT ORIGINAL EXAMINATION: 2 XRAY VIEWS OF THE LEFT HIP 09/09/2023 3:31 pm COMPARISON: None. HISTORY: ORDERING SYSTEM PROVIDED HISTORY: Reason for Exam: L hip/lower back pain FINDINGS: No acute fracture or dislocation is identified. [id number] degenerative changes seen of the left hip. [...] PM Ordering Provider: GALE MARROQUIN [facility] ([place]) XR PELVIS 1 OR 2 VIEWSon XR [...] PM Ordering Provider: GALE MARROQUIN [facility] ([place]) Absolute lymphocyte countOrd ered By: Hortencia Mclaughlin on 09-07-2023 Lymphocytes Auto (Unsp spec) [#/Vol] 14.76 10*3/uL 0.83-4.51 [facility] Automated lymphocyte count a s percentage of total leukocytesOrdered By: Hortencia Mclaughlin on 09-07-2023 Lymphocytes/100 WBC Auto (Unsp spec) 78.6 % 19-41 [facility] Basophil percentageOrdered B y: Hortencia Mclaughlin on 09-07-2023 Basophils/100 WBC (Bld) 0.6 % 0-1 [facility] Bilirubin [Mass/Vol] 0.60 mg/dL 0.20-1.00 [facility] Comment on above: For patients on eltr ombopag therapy, use of Dimension [place] TBIL is not recommended. Chloride [Moles/Vol] 98 mmol/L 98-107 [facility] Eosinophils/100 WBC (Bld) 0.7 % 0-5 [facility] Glucose [Mass/Vol] 94 mg/dL 74-106 [facility] Hemoglobin (Bld) [Mass/Vol] 11.8 g/dL 12.0-15.0 [facility] LDH [Catalytic activity/Vol] 179 U/L 84-246 [facility] Monocytes/100 WBC (Bld) 3.4 % 0-10 [facility] Neutrophils (Bld) [#/Vol] 3.1 10*3/uL 2.0-7.7 [facility] Neutrophils/100 WBC (Bld) 16.3 % 47-70 [facility] Potassium [Moles/Vol] 4.1 mmol/L 3.5-5.1 [facility] Protein [Mass/Vol] 6.8 g/dL 6.4-8.2 [facility] Sodium [Moles/Vol] 133 mmol/L 136-145 [facility] WBC (Bld) [#/Vol] 18.8 10*3/uL 4.4-11.0 [facility] Blood manual differential co mment interpretation (narrative result)Ordered By: Hortencia Mclaughlin on 09-07-2023 Manual differential comment Bobby (Bld) [Interp] SCANNED [facility] Comment on above: LYMPHOCYTOSIS Determination of erythrocyte mean corpuscular volume (MCV)Ordered By: Hortencia Mclaughlin on 09-07-2023 MCV (RBC) [Entitic vol] 88.3 fL 81-99 [facility] Erythrocyte distribution wid th ratioOrdered By: Hortencia Mclaughlin on 09-07-2023 Erythrocyte distribution width (RBC) [Ratio] 14.0 % 11.6-14.6 [facility] Erythrocyte distribution wid th standard deviationOrdered By: Hortencia Mclaughlin on 09-07-2023 Erythrocyte distribution width (RBC) [Entitic vol] 45.1 fL 35.1-43.9 [facility] Hematocrit Auto (Bld) [Volum e fraction]Ordered By: Hortencia Mclaughlin on 09-07-2023 Hematocrit (Bld) [Volume fraction] 36.2 % 37-47 [facility] Immature granulocytes/100 WB C Auto (Bld)Ordered By: Hortencia Mclaughlin on 09-07-2023 Immature granulocytes/100 WBC (Bld) 0.400 % 0.0-0.9 [facility] Comment on above: IG% - Immature Granu locytes (promyelocytes, myelocytes and metamyelocytes) > 1% indicates that a LEFT SHIFT is Present. Laboratory - Chemistry and C hemistry - challengeOrdered By: Hortencia Mclaughlin on 09-07-2023 Albumin/Globulin [Mass ratio] 1.3 {ratio} 0.9-2.4 [facility] ALP [Catalytic activity/Vol] 70 U/L 45-117 [facility] ALT [Catalytic activity/Vol] 22 U/L 13-56 [facility] CO2 [Moles/Vol] 29.0 mmol/L 21.0-32.0 [facility] Globulin (S) [Mass/Vol] 3.0 g/dL 2.2-4.2 [facility] Urea nitrogen/Creatinine [Mass ratio] 14.6 mg/mg 10-20 [facility] Laboratory - Hematology and Cell countsOrdered By: Hortencia Mclaughlin on 09-07-2023 MCH (RBC) [Entitic mass] 28.8 pg 27.0-32.0 [facility] MCHC (RBC) [Mass/Vol] 32.6 g/dL 32-36 [facility] Nucleated RBC/100 WBC (Bld) [Ratio] 0 % 0-5 [facility] Platelet mean volume (Bld) [Entitic vol] 9.8 fL 6.2-12.0 [facility] Platelets (Bld) [#/Vol] 248 10*3/uL 150-450 [facility] No Panel InformationOrdered By: Hortencia Mclaughlin on 09-07-2023 Estimated Creatinine Clearance Calc 41.40 ml/min [facility] Estimated GFR (MDRD) Amer 118 mL/min >60 [facility] Comment on above: GFR Calc Estimated GFR (MDRD) Non-Af Amer 98 mL/min >60 [facility] Comment on above: Non- GFR Calc RBC Auto (Bld) [#/Vol]Ordere d By: Hortencia Mclaughlin on 09-07-2023 RBC (Bld) [#/Vol] 4.10 10*6/uL 4.2-5.4 [facility] Serum or plasma calcium yakelin urement (mass/volume)Ordered By: Hortencia Mclaughlin on 09-07-2023 Calcium [Mass/Vol] 9.6 mg/dL 8.5-10.1 [facility] Serum or plasma creatinine m easurement (mass/volume)Ordered By: Hortencia Mclaughlin on 09-07-2023 Creatinine [Mass/Vol] 0.62 mg/dL 0.55-1.02 [facility] Comment on above: The validity of the calculated GFR & GFRAA in patients over 70 years has not been determined. Clinical correlation is essential. Serum or plasma thyroid stim ulating hormone (TSH) measurement (units/volume)Ordered By: Hortencia Mclaughlin on 09-07-2023 TSH Qn 0.48 uIU/mL 0.358-3.74 [facility] Serum or plasma urea nitroge n measurement (mass/volume)Ordered By: Hortencia Mclaughlin on 09-07-2023 Urea nitrogen [Mass/Vol] 9 mg/dL 7-18 [facility] TSH QnOrdered By: Hortencia holloway on 09-07-2023 Thyroid Stimulating Hormone (TSH) 0.48 uIU/mL 0.358-3.74 [facility] Thin prep Papanicolaou smear with manual screeningOrdered By: Hortencia Mclaughlin on 09-07-2023 Thin prep Papanicolaou smear with manual screening 3.8 g/dL 3.2-5.0 [facility] Thin prep Papanicolaou smear with manual screening 22 U/L 15-37 [facility] Thin prep Papanicolaou smear with manual screening 6 5-15 [facility] LABORATORYOrdered By: Anna Felix on 08-03-2023 Albumin DL <= 20 mg/L (U) [Mass/Vol] mcg/dL Invalid Interpretation Code AO ADM SS Albumin/Creatinine DL <= 20 mg/L (U) [Mass ratio] unable to calc Invalid Interpretation Code 0 - 30 AO Chemistry S Creatinine (U) [Mass/Vol] mg/dL Low 28.0 - 117.0 mg/dL AO ADM SS MALBRon 08-03-2023 U Creatinine <13.0 Low 28.0-117.0 [facility] ([place]) Comment on above: Performed By: #### M ALBR #### [facility]op[facility] [address] [address] U Microalb <130 Normal [facility] ([place]) Comment on above: Performed By: #### M ALBR #### [address] [address] U Ratio Alb/Cre unable to calc Normal 0-30 [facility] ([place]) Comment on above: Performed By: #### M ALBR #### [address] [address] Review by pathologistOrdered By: Hortencia Mclaughlin on 07-27-2023 Pathologist review Bobby (Unsp spec) [Interp] Reviewed [facility] Comment on above: Absolute lymphocytos is suggestive of low grade lympho-proliferative disorder.Normocytic anemia.Clinical correlation is necessary. Eliezer Stahl M.D. 07/28/23 No Panel InformationOrdered By: Shanell Theodore on 06-29-2023 Reactive Lymphocytes 1+ [facility] No Panel InformationOrdered By: Shanell Theodore on 06-01-2023 Atypical Lymphocytes 1+ % [facility] .GFRon 05-13-2023 GFR Non- 63 ml/min/1.73sqm Normal [facility] ([place]) Comment on above: Result Comment: GFR Population [...] L IPID, VIDH, CMP, TSH, GFR #### [address] [place], [place] [address] GFR 76 ml/min/1.73sqm Normal [facility] ([place]) Comment on above: Result Comment: GFR Population [...] L IPID, VIDH, CMP, TSH, GFR #### [address] [address] CMPon 05-13-2023 Albumin Level 3.4 G/dL Normal 3.4-4.8 [facility] ([place]) Comment on above: Performed By: #### L IPID, VIDH, CMP, TSH, GFR #### [address] [address] Albumin/Globulin [Mass ratio] 1.3 {ratio} Normal 1.1-2.5 [facility] ([place]) Comment on above: Performed By: #### L IPID, VIDH, CMP, TSH, GFR #### [address] [address] ALP [Catalytic activity/Vol] 66 U/L Normal 40-135 [facility] ([place]) Comment on above: Performed By: #### L IPID, VIDH, CMP, TSH, GFR #### [address] [address] ALT [Catalytic activity/Vol] 21 U/L Normal 14-59 [facility] ([place]) Comment on above: Performed By: #### L IPID, VIDH, CMP, TSH, GFR #### [address] [address] AST [Catalytic activity/Vol] 23 U/L Normal 10-40 [facility] ([place]) Comment on above: Performed By: #### L IPID, VIDH, CMP, TSH, GFR #### [address] [address] Bili Total 0.4 mg/dL Normal 0.2-1.0 [facility] ([place]) Comment on above: Result Comment: Use of this assay is not recommended for patients undergoing treatment with eltrombopag due to the potential for falsely elevated results. Performed By: #### L IPID, VIDH, CMP, TSH, GFR #### [address] [address] BUN/Creatinine Ratio 22 ratio Normal 7-27 [facility] ([place]) Comment on above: Performed By: #### L IPID, VIDH, CMP, TSH, GFR #### [address] [address] Calcium [Mass/Vol] 8.9 mg/dL Normal 8.4-10.2 [facility] ([place]) Comment on above: Performed By: #### L IPID, VIDH, CMP, TSH, GFR #### [address] [address] Chloride [Moles/Vol] 99 mmol/L Normal 98-107 [facility] ([place]) Comment on above: Performed By: #### L IPID, VIDH, CMP, TSH, GFR #### [address] [address] CO2 [Moles/Vol] 26 mmol/L Normal 23-31 [facility] ([place]) Comment on above: Performed By: #### L IPID, VIDH, CMP, TSH, GFR #### [address] [address] Creatinine [Mass/Vol] 0.86 mg/dL Normal 0.55-1.02 [facility] ([place]) Comment on above: Performed By: #### L IPID, VIDH, CMP, TSH, GFR #### [address] [address] Electrolyte Balance 8.0 mEq/L Normal 4.0-15.0 [facility] ([place]) Comment on above: Performed By: #### L IPID, VIDH, CMP, TSH, GFR #### [address] [address] Globulin 2.7 G/dL Normal [facility] ([place]) Comment on above: Performed By: #### L IPID, VIDH, CMP, TSH, GFR #### [address] [address] Glucose [Mass/Vol] 104 mg/dL Normal 83-110 [facility] ([place]) Comment on above: Performed By: #### L IPID, VIDH, CMP, TSH, GFR #### [address] [address] Potassium [Moles/Vol] 4.4 mmol/L Normal 3.5-5.1 [facility] ([place]) Comment on above: Performed By: #### L IPID, VIDH, CMP, TSH, GFR #### [address] [address] Sodium [Moles/Vol] 133 mmol/L Low 136-145 [facility] ([place]) Comment on above: Performed By: #### L IPID, VIDH, CMP, TSH, GFR #### [address] [address] Total Protein 6.1 G/dL Low 6.4-8.2 [facility] ([place]) Comment on above: Performed By: #### L IPID, VIDH, CMP, TSH, GFR #### [address] [address] Urea nitrogen [Mass/Vol] 19 mg/dL High 7-18 [facility] ([place]) Comment on above: Performed By: #### L IPID, VIDH, CMP, TSH, GFR #### [address] [address] LABORATORYOrdered By: SYSTEM SYSTEM on 05-13-2023 25-hydroxyvitamin [...] Bilirubin [Mass/Vol] 0.4 mg/dL Normal 0.2 - 1 .0 mg/dL AO ADM SS Comment on above: Interpretive Data: U se of this assay is not recommended for patients undergoing treatment with eltrombopag due to the potential for falsely elevated results. Calcium [Mass/Vol] 8.9 mg/dL Normal 8.4 - 10. 2 mg/dL AO ADM SS Chloride [Moles/Vol] 99 mmol/L Normal 98 - 10 7 mmol/L AO ADM SS CO2 [Moles/Vol] 26 mmol/L Normal 23 - 31 mmol/L AO ADM SS Creatinine [Mass/Vol] 0.86 mg/dL Normal 0.55 - 1.02 mg/dL AO ADM SS Electrolyte Balance 8.0 mEq/L Normal 4.0 - 15 .0 mEq/L AO ADM SS GFR/1.73 sq M.predicted [...] - 18 mg/dL AO ADM SS Urea nitrogen/Creatinine [Mass ratio] 22 ratio Normal 7 - [...] 05-13-2023 Cholesterol [Mass/Vol] 217 mg/dL High 0-200 [facility] ([place]) Comment on above: Result Comment: Chol esterol Reference Interval: Less than 200 Desirable 200-239 Borderline high risk 240 and above High risk Performed By: #### L IPID, VIDH, CMP, TSH, GFR #### [address] [address] Cholesterol in HDL [Mass/Vol] 41 mg/dL Normal 40-60 [facility] ([place]) Comment on above: Performed By: #### L IPID, VIDH, CMP, TSH, GFR #### [address] [address] Cholesterol in LDL [Mass/Vol] 156 mg/dL High 0-130 [facility] ([place]) Comment on above: Performed By: #### L IPID, VIDH, CMP, TSH, GFR #### [address] [address] Triglyceride [Mass/Vol] 102 mg/dL Normal 0-150 [facility] ([place]) Comment on above: Result Comment: Trig lyceride Reference Interval: Less than 150 Normal 150-199 Borderline high risk 200-499 High risk 500 or higher Very high risk Performed By: #### L IPID, VIDH, CMP, TSH, GFR #### [address] [address] TSHon 05-13-2023 TSH Qn 3.84 m[IU]/L High 0.36-3.74 [facility] ([place]) Comment on above: Performed By: #### L IPID, VIDH, CMP, TSH, GFR #### [address] [address] VIDHon 05-13-2023 Vit. D 25-Hydroxy 69.7 ng/mL Normal [facility] ([place]) Comment on above: Result Comment: Inte rpretive Values Based on Total 25(OH) Vitamin D: Deficient <20 ng/mL Insufficient 20 - <30 ng/mL Sufficient 30-100 ng/mL Performed By: #### L IPID, VIDH, CMP, TSH, GFR #### [place] [address] [address] .GFRon 05-08-2023 GFR 76 ml/min/1.73sqm Normal [facility] ([place]) Comment on above: Result Comment: GFR Population [...] L IPID, VIDH, CMP, TSH, GFR #### [address] [address] GFR Non- 63 ml/min/1.73sqm Normal [facility] ([place]) Comment on above: Result Comment: GFR Population [...] L IPID, VIDH, CMP, TSH, GFR #### [address] [address] .MDWon 05-08-2023 Monocyte Distribution Width 34.01 High 0.00-20.00 [facility] ([place]) Comment on above: Result Comment: The predictive value of MDW for identifying sepsis in patients with hematological abnormalities has not been established Performed By: #### L IPID, VIDH, CMP, TSH, GFR #### [place] [address] .Manual Diffon 05-08-2023 Basophil %, Manual 1.0 % Normal 0.0-2.5 [facility] ([place]) Comment on above: Performed By: #### L IPID, VIDH, CMP, TSH, GFR #### [address] [address] Basophil, Abs Manual 0.4 10 3/mcL High 0.0-0.2 [facility] ([place]) Comment on above: Performed By: #### L IPID, VIDH, CMP, TSH, GFR #### [address] [address] Eosinophil %, Manual 0.0 % Normal 0.0-7.0 [facility] ([place]) Comment on above: Performed By: #### L IPID, VIDH, CMP, TSH, GFR #### [address] [address] Eosinophil, Abs Manual 0.0 10 3/mcL Normal 0.0-0.4 [facility] ([place]) Comment on above: Performed By: #### L IPID, VIDH, CMP, TSH, GFR #### [address] [address] Lymphocyte %, Manual 92.0 % High 10.0-50.0 [facility] ([place]) Comment on above: Performed By: #### L IPID, VIDH, CMP, TSH, GFR #### [address] [address] Lymphocyte, Abs Manual 35.8 10 3/mcL High 0.8-3.9 [facility] ([place]) Comment on above: Performed By: #### L IPID, VIDH, CMP, TSH, GFR #### [address] [address] Monocyte %, Manual 1.0 % Low 1.7-13.0 [facility] ([place]) Comment on above: Performed By: #### L IPID, VIDH, CMP, TSH, GFR #### [address] [address] Monocyte, Abs Manual 0.4 10 3/mcL Normal 0.2-1.0 [facility] ([place]) Comment on above: Performed By: #### L IPID, VIDH, CMP, TSH, GFR #### [address] [address] Neutrophil %, Manual 6.0 % Low 37.0-80.0 [facility] ([place]) Comment on above: Performed By: #### L IPID, VIDH, CMP, TSH, GFR #### [address] [address] Neutrophil, Abs Manual 2.3 10 3/mcL Low 2.9-6.2 [facility] ([place]) Comment on above: Performed By: #### L IPID, VIDH, CMP, TSH, GFR #### [address] [address] Nucleated RBC 0.0 /100 WBC Normal [facility] ([place]) Comment on above: Performed By: #### L IPID, VIDH, CMP, TSH, GFR #### [address] [address] .Morphon 05-08-2023 Platelet Estimate Normal Normal [facility] ([place]) Comment on above: Performed By: #### L IPID, VIDH, CMP, TSH, GFR #### [address] [address] CBCon 05-08-2023 Erythrocyte distribution width (RBC) [Ratio] 15.7 % High 11.5-14.5 [facility] ([place]) Comment on above: Performed By: #### L IPID, VIDH, CMP, TSH, GFR #### [address] [address] Hematocrit (Bld) [Volume fraction] 32.2 % Low 37.0-47.0 [facility] ([place]) Comment on above: Performed By: #### L IPID, VIDH, CMP, TSH, GFR #### [place] [id number] Hgb 10.5 G/dL Low 12.0-16.0 [facility] ([place]) Comment on above: Performed By: #### L IPID, VIDH, CMP, TSH, GFR #### [place] [address] MCH (RBC) [Entitic mass] 29.9 pg Normal 27.0-31.2 [facility] ([place]) Comment on above: Performed By: #### L IPID, VIDH, CMP, TSH, GFR #### [place] [address] MCHC 32.6 G/dL Low 33.0-37.0 [facility] ([place]) Comment on above: Performed By: #### L IPID, VIDH, CMP, TSH, GFR #### [place] [id number] MCV (RBC) [Entitic vol] 91.6 fL Normal 80.0-94.0 [facility] ([place]) Comment on above: Performed By: #### L IPID, VIDH, CMP, TSH, GFR #### [place] [id number] Platelet 333 10 3/mcL Normal 130-400 [facility] ([place]) Comment on above: Performed By: #### L IPID, VIDH, CMP, TSH, GFR #### [place] [id number] Platelet mean volume (Bld) [Entitic vol] 7.5 fL Normal 7.4-10.4 [facility] ([place]) Comment on above: Performed By: #### L IPID, VIDH, CMP, TSH, GFR #### [address] [address] RBC 3.52 10 6/mcL Low 4.20-5.40 [facility] ([place]) Comment on above: Performed By: #### L IPID, VIDH, CMP, TSH, GFR #### [address] [address] WBC 38.9 10 3/mcL High 4.6-10.8 [facility] ([place]) Comment on above: Performed By: #### L IPID, VIDH, CMP, TSH, GFR #### [address] [address] CMPon 05-08-2023 Albumin Level 3.4 G/dL Normal 3.4-4.8 [facility] ([place]) Comment on above: Performed By: #### L IPID, VIDH, CMP, TSH, GFR #### [address] [address] Albumin/Globulin [Mass ratio] 1.1 {ratio} Normal 1.1-2.5 [facility] ([place]) Comment on above: Performed By: #### L IPID, VIDH, CMP, TSH, GFR #### [address] [address] ALP [Catalytic activity/Vol] 79 U/L Normal 40-135 [facility] ([place]) Comment on above: Performed By: #### L IPID, VIDH, CMP, TSH, GFR #### [address] [address] ALT [Catalytic activity/Vol] 21 U/L Normal 14-59 [facility] ([place]) Comment on above: Performed By: #### L IPID, VIDH, CMP, TSH, GFR #### [address] [address] AST [Catalytic activity/Vol] 17 U/L Normal 10-40 [facility] ([place]) Comment on above: Performed By: #### L IPID, VIDH, CMP, TSH, GFR #### [place] [id number] Bili Total 0.3 mg/dL Normal 0.2-1.0 [facility] ([place]) Comment on above: Result Comment: Use of this assay is not recommended for patients undergoing treatment with eltrombopag due to the potential for falsely elevated results. Performed By: #### L IPID, VIDH, CMP, TSH, GFR #### [address] [address] BUN/Creatinine Ratio 16 ratio Normal 7-27 [facility] ([place]) Comment on above: Performed By: #### L IPID, VIDH, CMP, TSH, GFR #### [address] [address] Calcium [Mass/Vol] 8.9 mg/dL Normal 8.4-10.2 [facility] ([place]) Comment on above: Performed By: #### L IPID, VIDH, CMP, TSH, GFR #### [place] [id number] Chloride [Moles/Vol] 98 mmol/L Normal 98-107 [facility] ([place]) Comment on above: Performed By: #### L IPID, VIDH, CMP, TSH, GFR #### [place] [id number] CO2 [Moles/Vol] 25 mmol/L Normal 23-31 [facility] ([place]) Comment on above: Performed By: #### L IPID, VIDH, CMP, TSH, GFR #### [address] [address] Creatinine [Mass/Vol] 0.86 mg/dL Normal 0.55-1.02 [facility] ([place]) Comment on above: Performed By: #### L IPID, VIDH, CMP, TSH, GFR #### [address] [address] Electrolyte Balance 9.0 mEq/L Normal 4.0-15.0 [facility] ([place]) Comment on above: Performed By: #### L IPID, VIDH, CMP, TSH, GFR #### [address] [address] Globulin 3.0 G/dL Normal [facility] ([place]) Comment on above: Performed By: #### L IPID, VIDH, CMP, TSH, GFR #### [address] [address] Glucose [Mass/Vol] 141 mg/dL High 83-110 [facility] ([place] Comment on above: Performed By: #### L IPID, VIDH, CMP, TSH, GFR #### [address] [address] Potassium [Moles/Vol] 3.8 mmol/L Normal 3.5-5.1 [facility] ([place]) Comment on above: Performed By: #### L IPID, VIDH, CMP, TSH, GFR #### [address] [address] Sodium [Moles/Vol] 132 mmol/L Low 136-145 [facility] ([place]) Comment on above: Performed By: #### L IPID, VIDH, CMP, TSH, GFR #### [address] [address] Total Protein 6.4 G/dL Normal 6.4-8.2 [facility] ([place] Comment on above: Performed By: #### L IPID, VIDH, CMP, TSH, GFR #### [address] [address] Urea nitrogen [Mass/Vol] 14 mg/dL Normal 7-18 [facility] ([place]) Comment on above: Performed By: #### L IPID, VIDH, CMP, TSH, GFR #### [address] [address] [address] ANGIOGRAPHY CHEST W/CONTR Ilsa 05-08-2023 CT [...] Reason for Exam: elevated d dimer FINDINGS: [id number] degenerative changes are noted in the spine. [...] is the leading consideration. Interpreted by: Nii Munoz MD Preliminary Report By: Nii Munoz MD Electronically signed By Nii Munoz MD Dictated Date: 05/08/2023 12:41:42 PM Prelim Date: 05/08/2023 12:45:07 PM Sign Date: 05/08/2023 12:45:07 PM Ordering Provider: CHANTAL Nunez [facility]) DIMERon 05-08-2023 D-Dimer 469 ng/mL D-DU High 0-230 [facility] ([place]) Comment on above: Result Comment: Resu lts [...] IPID, VIDH, CMP, TSH, GFR #### [id number] [place], [place] [address] LABORATORYOrdered By: SYSTEM SYSTEM on 05-08-2023 Troponin [...] Abs Manual 0.4 103/mcL High 0.0 - 0 .2 10^3/mcL AO Workflow SS Bilirubin [Mass/Vol] 0.3 mg/dL Normal 0.2 - 1 .0 mg/dL AO ADM SS Comment on above: Interpretive Data: U se of this assay is not recommended for patients undergoing treatment with eltrombopag due to the potential for falsely elevated results. Calcium [Mass/Vol] 8.9 mg/dL Normal 8.4 - 10. 2 mg/dL AO ADM SS Chloride [Moles/Vol] 98 mmol/L Normal 98 - 10 7 mmol/L AO ADM SS CO2 [Moles/Vol] 25 mmol/L Normal 23 - 31 mmol/L AO ADM SS Creatinine [Mass/Vol] 0.86 mg/dL Normal 0.55 - 1.02 mg/dL AO ADM SS Electrolyte Balance 9.0 mEq/L Normal 4.0 - 15 .0 mEq/L AO ADM SS Eosinophil %, Manual 0.0 % Normal 0.0 - 7 .0 % AO Workflow SS Eosinophils (Bld) [#/Vol] [...] Magnesium [Mass/Vol] 1.9 mg/dL Normal 1.8 - 2 .4 mg/dL AO ADM SS MCH (RBC) [Entitic [...] Abs Manual 0.4 103/mcL Normal 0.2 - 1 .0 10^3/mcL AO Workflow SS Natriuretic peptide.B prohormone [...] - 18 mg/dL AO ADM SS Urea nitrogen/Creatinine [Mass ratio] 16 ratio Normal 7 - [...] [Mass/Vol] 1.9 mg/dL Normal 1.8-2.4 [facility] ([place]) Comment on above: Performed By: #### L IPID, VIDH, CMP, TSH, GFR #### [address] [address] PBNPon 05-08-2023 Natriuretic peptide B (Bld) [Mass/Vol] 608 pg/mL High 0-450 [facility] ([place]) Comment on above: Result Comment: NT-p roBNP results of less than 300 pg/mL effectively rules out acute congestive heart failure with 99% negative predictive value. Performed By: #### L IPID, VIDH, CMP, TSH, GFR #### [address] [address] TROPHSon 05-08-2023 Troponin I High Sensitivity 5.5 ng/L Normal 0.0-51.4 [facility] ([place]) Comment on above: Performed By: #### T ROPHS #### [address] [address] Troponin I High Sensitivity 5.6 ng/L Normal 0.0-51.4 [facility] ([place]) Comment on above: Performed By: #### L IPID, VIDH, CMP, TSH, GFR #### [address] [address] XR CHEST 1 VIEWon 05-08-2023 XR CHEST [...] IMPRESSION: No acute finding. Interpreted by: Nii Munoz MD Preliminary Report By: Nii Munoz MD Electronically signed By Nii Munoz MD Dictated Date: 05/08/2023 11:10:42 AM Prelim Date: 05/08/2023 11:11:05 AM Sign Date: 05/08/2023 11:11:05 AM Ordering Provider: CHANTAL Nunez [facility] ([place]) No Panel Informationon 05-05 Culture Urine 50,000 - 100,000 cfu /ml Mixed growth consistent with normal urogenital giles. [facility] Work Phone: Blood platelet adequacy dete ction by light microscopyOrdered By: Hortencia Mclaughlin on 04-22-2023 Platelets LM Ql (Bld) ADEQUATE ADEQ [facility] Hypochromatic red blood cell detectionOrdered By: Hortencia Mclaughlin on 04-22-2023 Hypochromia Ql (Bld) RARE [facility] Hypochromia Ql (Bld)Ordered By: Hortencia Mclaughlin on 04-22-2023 Hypochromasia RARE [facility] Laboratory - Hematology and Cell countsOrdered By: Hortencia Mclaughlin on 04-22-2023 Anisocytosis Ql (Bld) 1+ [facility] Macrocytes Ql (Bld)Ordered B y: Hortencia Mclaughlin on 04-22-2023 Macrocytosis 1+ [facility] Macrocytes detectionOrdered By: Hortencia Mclaughlin on 04-22-2023 Macrocytes Ql (Bld) 1+ [facility] Platelets LM Ql (Bld)Ordered By: Hortencia Mclaughlin on 04-22-2023 Platelet Estimate ADEQUATE ADEQ [facility] RBC morphologyOrdered By: Roula Mclaughlin on 04-22-2023 RBC morphology finding Nom (Bld) N CHROM NORMAL NORM C&C [facility] RBC morphology finding Nom ( Bld)Ordered By: Hortencia Mclaughlin on 04-22-2023 Red Blood Cell Morphology N CHROM NORMAL NORM C&C [facility] Lower GI hemoglobin IA Ql (S tl)Ordered By: Shanell Theodore on 04-15-2023 Stool Occult Blood (LILIANA) [facility] Stool Occult Blood (LILIANA) [facility] Stool gastrointestinal hemog lobin detection by immunologic methodOrdered By: Shanell Theodore on 04-15-2023 Lower GI hemoglobin IA Ql (Stl) [facility] Folate [Mass/Vol]Ordered By: Hortencia Mclaughlin on 02-23-2023 Folate 15.40 ng/mL 3.1-55.4 [facility] Iron (Unsp spec) [Mass/Mass] Ordered By: Hortencia Mclaughlin on 02-23-2023 Iron [Mass/Vol] 78 ug/dL 50-170 [facility] Iron measurement (mass/mass) Ordered By: Hortencia Mclaughlin on 02-23-2023 Iron (Unsp spec) [Mass/Mass] 78 ug/dL 50-170 [facility] Iron saturation [Mass fracti on]Ordered By: Hortencia Mclaughlin on 02-23-2023 Iron Saturation 26.4 % 15.0-55.0 [facility] Laboratory - Chemistry and C hemistry - challengeOrdered By: Hortencia Mclaughlin on 02-23-2023 Cobalamin (Vitamin B12) [Mass/Vol] 751 pg/mL 211-911 [facility] No Panel InformationOrdered By: Hortencia Mclaughlin on 02-23-2023 Total Iron Binding Capacity 296 ug/dL 250-450 [facility] Serum or plasma ferritin josefa surement (mass/volume)Ordered By: Hortencia Mclaughlin on 02-23-2023 Ferritin [Mass/Vol] 154 ng/mL 8-252 [facility] Serum or plasma folate measu rement (mass/volume)Ordered By: Hortencia Mclaughlin on 02-23-2023 Folate [Mass/Vol] 15.40 ng/mL 3.1-55.4 [facility] Serum or plasma iron saturat ion measurement (mass fraction)Ordered By: Hortencia Mclaughlin on 02-23-2023 Iron saturation [Mass fraction] 26.4 % 15.0-55.0 [facility] Blood lymphocytes/100 leukoc ytesOrdered By: Hortencia Mclaughlin on 12-01-2022 Lymphocytes/100 WBC (Bld) Not Reportable [facility] Blood monocytes/100 leukocyt esOrdered By: Hortencia Mclaughlin on 12-01-2022 Monocytes/100 WBC (Bld) Not Reportable [facility] Blood segmented neutrophils/ 100 leukocytesOrdered By: Hortencia Mclaughlin on 12-01-2022 Segmented neutrophils/100 WBC (Bld) Not Reportable [facility] Cells counted Molgen (Bld/Ti ss) [#]Ordered By: Hortencia Mclaughlin on 12-01-2022 Differential Total Cells Counted Not Reportable [facility] HBV core Ab Ql (S)Ordered By : Hortencia Mclaughlin on 12-01-2022 Hepatitis B Core Total Antibody Negative Negative [facility] HBV surface Ag IA QlOrdered By: Hortencia Mclaughlin on 12-01-2022 Hepatitis B Surface Antigen Negative Negative [facility] Hemoglobin (Reticulocytes) [ Entitic mass]Ordered By: Hortencia Mclaughlin on 12-01-2022 Reticulocyte Hemoglobin Equivalent 33.2 pg 30-35 [facility] Hemoglobin in reticulocytes (mass per reticulocyte)Ordered By: Hortencia Mclaughlin on 12-01-2022 Hemoglobin (Reticulocytes) [Entitic mass] 33.2 pg 30-35 [facility] Lymphocytes/100 WBC (Bld)Ord ered By: Hortencia Mclaughlin on 12-01-2022 Lymphocytes % (Manual) Not Reportable [facility] Monocytes/100 WBC (Bld)Order ed By: Hortencia Mclaughlin on 12-01-2022 Monocytes % (Manual) Not Reportable [facility] No Panel InformationOrdered By: Hortencia Mclaughlin on 12-01-2022 Hepatitis B Surface Antibody Reactive . [facility] Comment on above: Non Reactive: Incons istent with immunity, less than 10 mIU/mL Reactive: Consistent with immunity, greater than 9.9 mIU/mLVerified by repeat analysis Hepatitis C Antibody Comment Comment . [facility] Comment on above: Not infected with HC V unless early or acute infection issuspected (which may be delayed in an immunocompromisedindividual), or other evidence exists to indicate HCVinfection.Performed at: [address] [id number] Director: Jerod Santos PhD, Phone: [phone] Immature Reticulocyte Fraction 14.30 % 3.00-15.90 [facility] Reticulocyte Count 1.66 % High 0.5-1.5 [facility] Segmented neutrophils/100 WB C (Bld)Ordered By: Hortencia Mclaughlin on 12-01-2022 Neutrophils % (Manual) Not Reportable [facility] Serum hepatitis B virus core antibody detectionOrdered By: Hortencia Mclaughlin on 12-01-2022 HBV core Ab Ql (S) Negative Negative [facility] Serum or plasma hepatitis B virus surface antigen detection by immunoassayOrdered By: Hortencia Mclaughlin on 12-01-2022 HBV surface Ag IA Ql Negative Negative [facility] Total cell countOrdered By: Hortencia Mclaughlin on 12-01-2022 Cells counted Molgen (Bld/Tiss) [#] Not Reportable [facility] LABORATORYOrdered By: Steff Mccarthy on 08-28-2022 Albumin DL <= 20 mg/L (U) [Mass/Vol] 462 mcg/dL Invalid Interpretation Code AO ADM SS Albumin/Creatinine DL <= 20 mg/L (U) [Mass ratio] 6 mcg/mg Invalid Interpretation Code 0 - 30 mcg/mg AO ADM SS Creatinine (U) [Mass/Vol] 78.3 mg/dL Invalid Interpretation Code 28.0 - 117.0 mg/dL AO ADM SS Absolute lymphocyte countOrd ered By: Dr. Mclaughlin on 08-18-2022 Lymphocytes Auto (Unsp spec) [#/Vol] 32.26 10*3/uL 0.83-4.51 [facility] Basophil percentageOrdered B y: Dr. Mclaughlin on 08-18-2022 Basophils/100 WBC (Bld) 0.1 % 0-1 [facility] Bilirubin [Mass/Vol] 0.40 mg/dL 0.20-1.00 [facility] Comment on above: For patients on eltr ombopag therapy, use of Dimension [place] TBIL is not recommended. Chloride [Moles/Vol] 101 mmol/L 98-107 [facility] Eosinophils/100 WBC (Bld) 1.4 % 0-5 [facility] Glucose [Mass/Vol] 88 mg/dL 74-106 [facility] LDH [Catalytic activity/Vol] 464 U/L 84-246 [facility] Neutrophils (Bld) [#/Vol] 3.2 10*3/uL 2.0-7.7 [facility] Neutrophils/100 WBC (Bld) 7.8 % 47-70 [facility] Potassium [Moles/Vol] 4.2 mmol/L 3.5-5.1 [facility] Protein [Mass/Vol] 7.3 g/dL 6.4-8.2 [facility] Sodium [Moles/Vol] 136 mmol/L 136-145 [facility] WBC (Bld) [#/Vol] 40.4 10*3/uL 4.4-11.0 [facility] Comment on above: LEFT MESSAGE FOR MARINA SE TO CALL FOR CRITICAL RESULT AT 11:50. Blood erythrocytes count (nu mber/volume)Ordered By: Dr. Mclaughlin on 08-18-2022 RBC (Bld) [#/Vol] 4.17 10*6/uL 4.2-5.4 [facility] Blood hemoglobin measurement (mass/volume)Ordered By: Dr. Mclaughlin on 08-18-2022 Hemoglobin (Bld) [Mass/Vol] 12.6 g/dL 12.0-15.0 [facility] Blood lymphocytes/100 leukoc ytesOrdered By: Dr. Mclaughlin on 08-18-2022 Lymphocytes/100 WBC (Bld) 79.9 % 19-41 [facility] Blood manual differential co mment interpretation (narrative result)Ordered By: Dr. Mclaughlin on 08-18-2022 Manual differential comment Bobby (Bld) [Interp] SCANNED [facility] Comment on above: LYMPHOCYTOSIS Blood monocytes/[address] es[address]: [address] Mclaughlin on 08-18-2022 Monocytes/100 WBC (Bld) 10.6 % 0-10 [facility] Blood platelet mean volumeOr dered By: Dr. Mclaughlin on 08-18-2022 Platelet mean volume (Bld) [Entitic vol] 9.5 fL 6.2-12.0 [facility] Determination of erythrocyte mean corpuscular volume (MCV)Ordered By: Dr. Mclaughlin on 08-18-2022 MCV (RBC) [Entitic vol] 91.8 fL 81-99 [facility] Hematocrit Auto (Bld) [Volum e fraction]Ordered By: Dr. Mclaughlin on 08-18-2022 Hematocrit (Bld) [Volume fraction] 38.3 % 37-47 [facility] Laboratory - Chemistry and C hemistry - challengeOrdered By: Dr. Mclaughlin on 08-18-2022 ALP [Catalytic activity/Vol] 70 U/L 45-117 [facility] ALT [Catalytic activity/Vol] 22 U/L 13-56 [facility] CO2 [Moles/Vol] 30.0 mmol/L 21.0-32.0 [facility] Globulin (S) [Mass/Vol] 3.5 g/dL 2.2-4.2 [facility] Urea nitrogen/Creatinine [Mass ratio] 18.9 mg/mg 10-20 [facility] Laboratory - Hematology and Cell countsOrdered By: Dr. Mclaughlin on 08-18-2022 Erythrocyte distribution width (RBC) [Entitic vol] 47.0 fL 35.1-43.9 [facility] Erythrocyte distribution width (RBC) [Ratio] 14.0 % 11.6-14.6 [facility] Immature granulocytes/100 WBC (Bld) 0.200 % 0.0-0.9 [facility] Comment on above: IG% - Immature Granu locytes (promyelocytes, myelocytes and metamyelocytes) > 1% indicates that a LEFT SHIFT is Present. MCH (RBC) [Entitic mass] 30.2 pg 27.0-32.0 [facility] Nucleated RBC/100 WBC (Bld) [Ratio] 0 % 0-5 [facility] MCHC Auto (RBC) [Mass/Vol]Or dered By: Dr. Mclaughlin on 08-18-2022 MCHC (RBC) [Mass/Vol] 32.9 g/dL 32-36 [facility] No Panel InformationOrdered By: Dr. Mclaughlin on 08-18-2022 Estimated GFR (MDRD) Amer 89 mL/min >60 [facility] Comment on above: GFR Calc Estimated GFR (MDRD) Non-Af Amer 74 mL/min >60 [facility] Comment on above: Non- GFR Calc Miscellaneous Test See comment [facility] Comment on above: TEST RESULT LIMITSCL L FISH PanelSpecimen Type Comment: BLOODCells Counted Comment: 100/probeCells Analyzed Comment: 100/probeFISH Result Comment: 38% OF NUCLEI POSITIVE FOR TRISOMY 12; 54% Of NUCLEI POSITIVE FOR LOSS OF ONE TP53 SIGNALInterpretation Comment:CLL RELATED CLONE DETECTED The CLL interphase fluorescence in situ hybridization(FISH) 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 Results for CCND1/IGH, 13q, and NIC werenormal. Loss of TP53, although not specific for CLL, isassociated with the most adverse prognosis in patientsdiagnosed with CLL. Trisomy 12 is a common finding in CLL. SPECIFIC FISH RESULTS:. 12cen: ABNORMAL . nuc gregory 12cen([id number])[38/100] . TP53: ABNORMAL . nuc gregory 17p13.1(TP53x1)[54/100] . NIC: NORMAL . nuc gregory 11q22.3(ATMx2)[100] CCND1/IGH: NORMAL nuc gregory 11q13(ZSTK1l8),14q32(IGHx2)[100] 13q: NORMAL nuc gregory 13q14.3(DLEUx2),13q34(IYTT9d2)[100]This analysis is limited to abnormalities detectableby the specific probes included in the study. FISH resultsshould be interpreted within the context of a fullcytogenetic analysis and hematologic evaluation. REFERENCES:. Rema,(2013) Adv Exp Med Biol 792:193-214.PMID#[id number] . Yolanda et al.,(2011) Clin Lab Med31:649-658.PMID#[id number] This test was developed and its performacecharacteristics determined by [employer] ([employer]). It has not been cleared orapproved by the U.S. Food and Drug Administration. The DNAprobe vendor for this study was [employer] ([employer]).Director Review: Comment: TONY CARDOZA, PHD TESTING PERFORMED AT [facility]. ORIGINAL REPORT ON FILE IN LAB CONTAINS ADDITIONAL TEST SITE INFORMATION. Reactive Lymphocytes 1+ [facility] Platelets bldOrdered By: Dr. Mclaughlin on 08-18-2022 Platelets (Bld) [#/Vol] 330 10*3/uL 150-450 [facility] Review by pathologistOrdered By: Dr. Mclaughlin on 08-18-2022 Pathologist review Bobby (Unsp spec) [Interp] Reviewed [facility] Comment on above: Previous reported re sult: Luzmaria kristin Edited by: RGOOD on 08/19/22:1348Absolute lymphocytosis suggestive of low grade lympho-proliferative disorder.Clinical correlation is necessary. Eliezer Stahl M.D. 08/19/22 AMENDED REPORT 08/19/22 1348 PATH REV previously reported as: Luzmaria foster Serum or plasma albumin yakelin urement (mass/volume)Ordered By: Dr. Mclaughlin on 08-18-2022 Albumin [Mass/Vol] 3.8 g/dL 3.2-5.0 [facility] Serum or plasma albumin/glob ulin mass ratioOrdered By: Dr. Mclaughlin on 08-18-2022 Albumin/Globulin [Mass ratio] 1.1 {ratio} 0.9-2.4 [facility] Serum or plasma calcium yakelin urement (mass/volume)Ordered By: Dr. Mclaughlin on 08-18-2022 Calcium [Mass/Vol] 9.6 mg/dL 8.5-10.1 [facility] Serum or plasma creatinine m easurement (mass/volume)Ordered By: Dr. Mclaughlin on 08-18-2022 Creatinine [Mass/Vol] 0.79 mg/dL 0.55-1.02 [facility] Comment on above: The validity of the calculated GFR & GFRAA in patients over 70 years has not been determined. Clinical correlation is essential. Serum or plasma urea nitroge n measurement (mass/volume)Ordered By: Dr. Mclaughlin on 08-18-2022 Urea nitrogen [Mass/Vol] 15 mg/dL 7-18 [facility] Thin prep Papanicolaou smear with manual screeningOrdered By: Dr. Mclaughlin on 08-18-2022 Thin prep Papanicolaou smear with manual screening 16 U/L 15-37 [facility] Thin prep Papanicolaou smear with manual screening 5 5-15 [facility] LABORATORYOrdered By: SYSTEM SYSTEM on 08-13-2022 Albumin [...] - 18 mg/dL AO ADM SS Urea nitrogen/Creatinine [Mass ratio] 19 ratio Invalid Interpretation Code 7 - 27 ratio AO ADM SS LABORATORYOrdered By: Anna clark Isidro on 08-13-2022 Basophil %, Manual 0.0 1 [...] definite cause of disease. Laboratories within the [facility] and its territories are required to report [...] - 18 mg/dL AO ADM SS Urea nitrogen/Creatinine [Mass ratio] 25 ratio Invalid Interpretation Code [...] - 18 mg/dL AO ADM SS Urea nitrogen/Creatinine [Mass ratio] 22 ratio Invalid Interpretation Code [...] - 18 mg/dL AO ADM SS Urea nitrogen/Creatinine [Mass ratio] 22 ratio Invalid Interpretation Code [...] Probable Contamination. Suggest recollection if clinically indicated. [facility] Work Phone: LABORATORYOrdered By: Steff Mccarthy [...] - 18 mg/dL AO ADM SS Urea nitrogen/Creatinine [Mass ratio] 20 ratio Invalid Interpretation Code 7 - 27 ratio AO ADM SS LABORATORYOrdered By: SYSTEM SYSTEM on 05-06-2021 GFR 104 ml/min/1.73sqm Invalid Interpretation Code AO Chemistry S GFR Non- 86 ml/min/1.73sqm Invalid Interpretation Code AO Chemistry S Clinical Summary: HMSPatient IDon 10-05-2017 OOP Invalid Interpretation Code [facility] Work Phone: Clinical Summary: Scanned Hi story Summaryon 10-05-2017 Data entered by patient exercise frequency 2 days per week Invalid Interpretation Code [facility] Work Phone: Data entered by patient exercise type walking Invalid Interpretation Code [facility] Work Phone: data entered by patient, alcohol (ethanol or ETOH) use No Invalid Interpretation Code [facility] Work Phone: data entered by patient, drug (of abuse) use No Invalid Interpretation Code [facility] Work Phone: data entered by patient, Employer Name Retired Invalid Interpretation Code [facility] Work Phone: data entered by patient, exercise history Yes Invalid Interpretation Code [facility] Work Phone: Data entered by patient, history of past surgeries AppendectomyTonsillectomyHy sterectomy Invalid Interpretation Code [facility] Work Phone: data entered by patient, past medical history High blood pressureMitral valve prolapseOsteopenia Invalid Interpretation Code [facility] Work Phone: data entered by patient, social history, current smoker never smoker Invalid Interpretation Code [facility] Work Phone: data entered by patient, social history, marital status Invalid Interpretation Code [facility] Work Phone: father of patient is alive or Invalid Interpretation Code [facility] Work Phone: Housing Type: apartment, house, fci, trailer, none House Invalid Interpretation Code [facility] Work Phone: housing unit size (asthma environmental history, housing) (from single family to don't know) 2 Floors Invalid Interpretation Code [facility] Work Phone: mother of patient is alive or Invalid Interpretation Code [facility] Work Phone: Number of dependent children No Invalid Interpretation Code [facility] Work Phone: Clinical Summary: Marlyn Pollock Summaryon 10-05-2017 endocrine ROS Denies Invalid Interpretation Code [facility] Work Phone: Gastrointestional review of systems, comment Hemorrhoids Invalid Interpretation Code [facility] Work Phone: genitourinary review of systems, E&M Denies Invalid Interpretation Code [facility] Work Phone: Lymphocytes Denies Invalid Interpretation Code [facility] Work Phone: Review of Systems Neurologic comment Numbness,Tingling,Loss Of Balance Invalid Interpretation Code [facility] Work Phone: ROS cardiovascular E&M Denies Invalid Interpretation Code [facility] Work Phone: ROS ENT E&M Denies Invalid Interpretation Code [facility] Work Phone: ROS gastrointestinal E&M Complains Invalid Interpretation Code [facility] Work Phone: ROS general E&M Denies Invalid Interpretation Code [facility] Work Phone: ROS musculoskeletal E&M Denies Invalid Interpretation Code [facility] Work Phone: ROS neurological E&M Complains Invalid Interpretation Code [facility] Work Phone: ROS Psych comment Difficulty Sleeping Invalid Interpretation Code [facility] Work Phone: ROS psychiatric E&M Complains Invalid Interpretation Code [facility] Work Phone: ROS pulmonary E&M Denies Invalid Interpretation Code [facility] Work Phone: ROS skin E&M Denies Invalid Interpretation Code [facility] Work Phone: Office Visit: New - 1st visi t with practice, Rm: 3on 10-05-2017 NEGATED: Highlighted rowDocumentation of current medications (procedure) Done Invalid Interpretation Code [facility] Work Phone: NEGATED: Highlighted rowTobacco smoking status NHIS Tobacco smoking status NHIS Invalid Interpretation Code [facility] Work Phone: Vital Signs Date Time Vital Sign Value Performing Clinician Facility 01-08-2025 10:14-0400 Body temperature 97.8 [degF] Dr. Lizzette Apple DO Work Phone: [facility] 01-08-2025 10:14-0400 Diastolic blood pressure 58 mm[Hg] Dr. Lizzette Apple DO Work Phone: [facility] 01-08-2025 10:14-0400 Heart rate 63 /min Dr. Lizzette Apple DO Work Phone: [facility] 01-08-2025 10:14-0400 Respiratory rate 16 /min Dr. Lizzette Apple DO Work Phone: [facility] 01-08-2025 10:14-0400 SaO2% (BldA) [Mass fraction] 99 % Dr. Lizzette Apple DO Work Phone: [facility] 01-08-2025 10:14-0400 Systolic blood pressure 144 mm[Hg] Dr. Lizzette Apple DO Work Phone: [facility] 01-08-2025 09:14-0400 Body height 154.[address] Lizzette Apple DO Work Phone: [facility] 01-08-2025 09:14-0400 Body mass index (BMI) [Ratio] 22.5 kg/m2 Dr. Lizzette Apple DO Work Phone: [facility] 01-08-2025 09:14-0400 Body weight 54.[address] Lizzette Apple DO Work Phone: [facility] 09-14-2024 10:11-0400 Body height 154.[address] Lizzette Apple DO Work Phone: [facility] 09-14-2024 10:11-0400 Body mass index (BMI) [Ratio] 22.8 kg/m2 Dr. Lizzette Apple DO Work Phone: [facility] 09-14-2024 10:11-0400 Body weight 54.[address] Lizzette Apple DO Work Phone: [facility] 09-14-2024 10:11-0400 Diastolic blood pressure 76 mm[Hg] Dr. Lizzette Apple DO Work Phone: [facility] 09-14-2024 10:11-0400 Heart rate 67 /min Dr. Lizzette Apple DO Work Phone: [facility] 09-14-2024 10:11-0400 Respiratory rate 18 /min Dr. Lizzette Apple DO Work Phone: [facility] 09-14-2024 10:11-0400 SaO2% (BldA) [Mass fraction] 97 % Dr. Lizzette Apple DO Work Phone: [facility] 09-14-2024 10:11-0400 Systolic blood pressure 149 mm[Hg] Dr. Lizzette Apple DO Work Phone: [facility] 09-11-2024 10:05-0400 Body temperature 97.3 [degF] Dr. Lizzette Apple DO Work Phone: [facility] 09-11-2024 10:05-0400 Diastolic blood pressure 59 mm[Hg] Dr. Lizzette Apple DO Work Phone: [facility] 09-11-2024 10:05-0400 Heart rate 67 /min Dr. Lizzette Apple DO Work Phone: [facility] 09-11-2024 10:05-0400 Respiratory rate 16 /min Dr. Lizzette Apple DO Work Phone: [facility] 09-11-2024 10:05-0400 SaO2% (BldA) [Mass fraction] 99 % Dr. Lizzette Apple DO Work Phone: [facility] 09-11-2024 10:05-0400 Systolic blood pressure 138 mm[Hg] Dr. Lizzette Apple DO Work Phone: [facility] 09-11-2024 08:59-0400 Body height 154.[address] Lizzette Apple DO Work Phone: [facility] 09-11-2024 08:59-0400 Body mass index (BMI) [Ratio] 22.4 kg/m2 Dr. Lizzette Apple DO Work Phone: [facility] 09-11-2024 08:59-0400 Body weight [address] Lizzette Apple DO Work Phone: [facility] 09-04-2024 14:16-0400 Body mass index (BMI) [Ratio] 22.8 kg/m2 Dr. Lizzette Apple DO Work Phone: [facility] 09-04-2024 14:16-0400 Body temperature 97.7 [degF] Dr. Lizzette Apple DO Work Phone: [facility] 09-04-2024 14:16-0400 Body weight 54.[address] Lizzette Apple DO Work Phone: [facility] 09-04-2024 14:16-0400 Diastolic blood pressure 82 mm[Hg] Dr. Lizzette Apple DO Work Phone: [facility] 09-04-2024 14:16-0400 Heart rate 68 /min Dr. Lizzette Apple DO Work Phone: [facility] 09-04-2024 14:16-0400 Respiratory rate 16 /min Dr. Lizzette Apple DO Work Phone: [facility] 09-04-2024 14:16-0400 SaO2% (BldA) [Mass fraction] 100 % Dr. Lizzette Apple DO Work Phone: [facility] 09-04-2024 14:16-0400 Systolic blood pressure 145 mm[Hg] Dr. Lizzette Apple DO Work Phone: [facility] 08-15-2024 09:43-0400 Body mass index (BMI) [Ratio] 23.1 kg/m2 Dr. Lizzette Apple DO Work Phone: [facility] 08-15-2024 09:43-0400 Body weight 55.[address] Lizzette Apple DO Work Phone: [facility] 08-15-2024 09:43-0400 Diastolic blood pressure 84 mm[Hg] Dr. Lizzette Apple DO Work Phone: [facility] 08-15-2024 09:43-0400 Heart rate 85 /min Dr. Lizzette Apple DO Work Phone: [facility] 08-15-2024 09:43-0400 Respiratory rate 16 /min Dr. Lizzette Apple DO Work Phone: [facility] 08-15-2024 09:43-0400 SaO2% (BldA) [Mass fraction] 98 % Dr. Lizzette Apple DO Work Phone: [facility] 08-15-2024 09:43-0400 Systolic blood pressure 146 mm[Hg] Dr. Lizzette Apple DO Work Phone: [facility] 08-11-2024 12:00-0500 Heart rate 82 /min Dr. Lizzette Apple DO Work Phone: [facility] 08-11-2024 12:00-0500 Respiratory rate 16 /min Dr. Lizzette Apple DO Work Phone: [facility] 08-11-2024 12:00-0500 SaO2% (BldA) [Mass fraction] 96 % Dr. Lizzette Apple DO Work Phone: [facility] 08-11-2024 10:45-0500 Diastolic blood pressure 74 mm[Hg] Dr. Lizzette Apple DO Work Phone: [facility] 08-11-2024 10:45-0500 Systolic blood pressure 180 mm[Hg] Dr. Lizzette Apple DO Work Phone: [facility] 08-11-2024 08:45-0500 Body height 154.[address] Lizzette Apple DO Work Phone: [facility] 08-11-2024 08:45-0500 Body mass index (BMI) [Ratio] 22.6 kg/m2 Dr. Lizzette Apple DO Work Phone: [facility] 08-11-2024 08:45-0500 Body temperature 97.8 [degF] Dr. Lizzette Apple DO Work Phone: [facility] 08-11-2024 08:45-0500 Body weight 54.[address] Lizzette Apple DO Work Phone: [facility] 06-12-2024 10:27-0500 Body temperature 97.8 [degF] Dr. Lizzette Apple DO Work Phone: [facility] 06-12-2024 10:27-0500 Diastolic blood pressure 63 mm[Hg] Dr. Lizzette Apple DO Work Phone: [facility] 06-12-2024 10:27-0500 Heart rate 66 /min Dr. Lizzette Apple DO Work Phone: [facility] 06-12-2024 10:27-0500 Respiratory rate 15 /min Dr. Lizzette Apple DO Work Phone: [facility] 06-12-2024 10:27-0500 SaO2% (BldA) [Mass fraction] 97 % Dr. Lizzette Apple DO Work Phone: [facility] 06-12-2024 10:27-0500 Systolic blood pressure 133 mm[Hg] Dr. Lizzette Apple DO Work Phone: [facility] 06-12-2024 08:30-0500 Body mass index (BMI) [Ratio] 23.3 kg/m2 Dr. Lizzette Apple DO Work Phone: [facility] 06-12-2024 08:30-0500 Body weight 56.[address] Lizzette Apple DO Work Phone: [facility] 05-29-2024 13:21-0500 Body mass index (BMI) [Ratio] 22.3 kg/m2 Dr. Lizzette Apple DO Work Phone: [facility] 05-29-2024 13:21-0500 Body temperature 97.4 [degF] Dr. Lizzette Apple DO Work Phone: [facility] 05-29-2024 13:21-0500 Body weight 55.[address] Lizzette Apple DO Work Phone: [facility] 05-29-2024 13:21-0500 Diastolic blood pressure 74 mm[Hg] Dr. Lizzette Apple DO Work Phone: [facility] 05-29-2024 13:21-0500 Heart rate 69 /min Dr. Lizzette Apple DO Work Phone: [facility] 05-29-2024 13:21-0500 Respiratory rate 16 /min Dr. Lizzette Apple DO Work Phone: [facility] 05-29-2024 13:21-0500 SaO2% (BldA) [Mass fraction] 100 % Dr. Lizzette Apple DO Work Phone: [facility] 05-29-2024 13:21-0500 Systolic blood pressure 132 mm[Hg] Dr. Lizzette Apple DO Work Phone: [facility] 04-28-2024 09:41-0500 Body mass index (BMI) [Ratio] 32.9 kg/m2 Dr. Lizzette Apple DO Work Phone: [facility] 04-28-2024 09:41-0500 Body weight 81.[address] Lizzette Apple DO Work Phone: [facility] 10-05-2023 11:01-0400 Diastolic blood pressure 66 mm[Hg] CALIBRATION SPECIALIST-C Marly Mo CALIBRATION SPECIALIST Work Phone: [facility] 10-05-2023 11:01-0400 Systolic blood pressure 119 mm[Hg] CALIBRATION SPECIALIST-C Marly Mo CALIBRATION SPECIALIST Work Phone: [facility] 10-05-2023 09:45-0400 Heart rate 80 /min CALIBRATION SPECIALIST-Triston Mo CALIBRATION SPECIALIST Work Phone: [facility] 10-05-2023 09:45-0400 Respiratory rate 16 /min CALIBRATION SPECIALIST-Triston Mo CALIBRATION SPECIALIST Work Phone: [facility] 10-05-2023 09:45-0400 SaO2% (BldA) [Mass fraction] 100 % CALIBRATION SPECIALIST-Triston Mo CALIBRATION SPECIALIST Work Phone: [facility] 10-05-2023 08:17-0400 Body height 160.02 cm CALIBRATION SPECIALIST-Triston Mo CALIBRATION SPECIALIST Work Phone: [facility] 10-05-2023 08:17-0400 Body mass index (BMI) [Ratio] 23.8 kg/m2 CALIBRATION SPECIALIST-C Marly Mo CALIBRATION SPECIALIST Work Phone: [facility] 10-05-2023 08:17-0400 Body temperature 98.1 [degF] CALIBRATION SPECIALIST-C Marly Mo CALIBRATION SPECIALIST Work Phone: [facility] 10-05-2023 08:17-0400 Body weight 61.1 kg CALIBRATION SPECIALIST-C Marly Mo CALIBRATION SPECIALIST Work Phone: [facility] 10-04-2023 13:09-0400 Blood Pressure Location LEONARDO REICHFIELD DO [facility] 10-04-2023 13:09-0400 Blood Pressure Method LEONARDO REICHFIELD DO [facility] 10-04-2023 13:09-0400 Diastolic Blood Pressure Non-Invasive 68 mm[Hg] LEONARDO REICHFIELD DO [facility] 10-04-2023 13:09-0400 Heart rate 82 /min LEONARDO REICHFIELD DO [facility] 10-04-2023 13:09-0400 Respiratory rate 18 /min LEONARDO REICHFIELD DO [facility] 10-04-2023 13:09-0400 Systolic Blood Pressure Non-Invasive 143 mm[Hg] LEONARDO REICHFIELD DO [facility] 10-04-2023 10:15-0400 Blood Pressure Location LEONARDO REICHFIELD DO [facility] 10-04-2023 10:15-0400 Blood Pressure Method LEONARDO REICHFIELD DO [facility] 10-04-2023 10:15-0400 Body temperature 98.06 [degF] LEONARDO REICHFIELD DO [facility] 10-04-2023 10:15-0400 Diastolic Blood Pressure Non-Invasive 67 mm[Hg] LEONARDO REICHFIELD DO [facility] 10-04-2023 10:15-0400 Heart rate 84 /min [facility] DO [facility] 10-04-2023 10:15-0400 Respiratory rate 18 /min [facility] DO [facility] 10-04-2023 10:15-0400 Systolic Blood Pressure Non-Invasive 153 mm[Hg] [facility]ARD[facility]FORM[facility]LY [facility] DO [facility] 09-21-2023 09:46-0400 Blood Pressure Location GOKUL REYES MD [facility] 09-21-2023 09:46-0400 Blood Pressure Method GOKUL REYES MD [facility] 09-21-2023 09:46-0400 Body temperature 98.24 [degF] GOKUL REYES MD [facility] 09-21-2023 09:46-0400 Diastolic Blood Pressure Non-Invasive 62 mm[Hg] GOKUL REYES MD [facility] 09-21-2023 09:46-0400 Heart rate 72 /min GOKUL REYES MD [facility] 09-21-2023 09:46-0400 Respiratory rate 18 /min GOKUL REYES MD [facility] 09-21-2023 09:46-0400 Systolic Blood Pressure Non-Invasive 152 mm[Hg] GOKUL REYES MD [facility] 09-07-2023 14:27-0400 Body mass index (BMI) [Ratio] 23.8 kg/m2 CALIBRATION SPECIALIST-C Marly Mo CALIBRATION SPECIALIST Work Phone: [facility] 09-07-2023 14:27-0400 Body temperature 97 [degF] CALIBRATION SPECIALIST-C Marly Mo CALIBRATION SPECIALIST Work Phone: [facility] 09-07-2023 14:27-0400 Body weight 59.08 kg CALIBRATION SPECIALIST-C Marly Mo CALIBRATION SPECIALIST Work Phone: [facility] 09-07-2023 14:27-0400 Diastolic blood pressure 77 mm[Hg] CALIBRATION SPECIALIST-C Marly Mo CALIBRATION SPECIALIST Work Phone: [facility] 09-07-2023 14:27-0400 Heart rate 69 /min CALIBRATION SPECIALIST-C Marly Mo CALIBRATION SPECIALIST Work Phone: [facility] 09-07-2023 14:27-0400 Respiratory rate 18 /min CALIBRATION SPECIALIST-C Marly Mo CALIBRATION SPECIALIST Work Phone: [facility] 09-07-2023 14:27-0400 SaO2% (BldA) [Mass fraction] 100 % CALIBRATION SPECIALIST-C Marly Mo CALIBRATION SPECIALIST Work Phone: [facility] 09-07-2023 14:27-0400 Systolic blood pressure 166 mm[Hg] CALIBRATION SPECIALIST-Triston Mo CALIBRATION SPECIALIST Work Phone: [facility] 07-27-2023 13:04-0500 Body mass index (BMI) [Ratio] 23.8 kg/m2 CALIBRATION SPECIALIST-C Marly Mo CALIBRATION SPECIALIST Work Phone: [facility] 07-27-2023 13:04-0500 Body temperature 97.1 [degF] CALIBRATION SPECIALIST-Triston Mo CALIBRATION SPECIALIST Work Phone: [facility] 07-27-2023 13:04-0500 Body weight 59.02 kg CALIBRATION SPECIALIST-Triston Mo CALIBRATION SPECIALIST Work Phone: [facility] 07-27-2023 13:04-0500 Diastolic blood pressure 75 mm[Hg] CALIBRATION SPECIALIST-C Marly Mo CALIBRATION SPECIALIST Work Phone: [facility] 07-27-2023 13:04-0500 Heart rate 63 /min CALIBRATION SPECIALIST-C Marly Mo CALIBRATION SPECIALIST Work Phone: [facility] 07-27-2023 13:04-0500 Respiratory rate 18 /min CALIBRATION SPECIALIST-C Marly Mo CALIBRATION SPECIALIST Work Phone: [facility] 07-27-2023 13:04-0500 SaO2% (BldA) [Mass fraction] 100 % CALIBRATION SPECIALIST-C Marly Mo CALIBRATION SPECIALIST Work Phone: [facility] 07-27-2023 13:04-0500 Systolic blood pressure 143 mm[Hg] CALIBRATION SPECIALIST-C Marly Mo CALIBRATION SPECIALIST Work Phone: [facility] 06-29-2023 10:55-0500 Body mass index (BMI) [Ratio] 23.6 kg/m2 CALIBRATION SPECIALIST-C Marly Mo CALIBRATION SPECIALIST Work Phone: [facility] 06-29-2023 10:55-0500 Body temperature 97.7 [degF] CALIBRATION SPECIALIST-C Marly Mo CALIBRATION SPECIALIST Work Phone: [facility] 06-29-2023 10:55-0500 Body weight 58.51 kg CALIBRATION SPECIALIST-C Marly Mo CALIBRATION SPECIALIST Work Phone: [facility] 06-29-2023 10:55-0500 Diastolic blood pressure 77 mm[Hg] CALIBRATION SPECIALIST-C Marly Mo CALIBRATION SPECIALIST Work Phone: [facility] 06-29-2023 10:55-0500 Heart rate 66 /min CALIBRATION SPECIALIST-C Marly Mo CALIBRATION SPECIALIST Work Phone: [facility] 06-29-2023 10:55-0500 Respiratory rate 16 /min CALIBRATION SPECIALIST-C Marly Mo CALIBRATION SPECIALIST Work Phone: [facility] 06-29-2023 10:55-0500 SaO2% (BldA) [Mass fraction] 100 % CALIBRATION SPECIALIST-C Marly Mo CALIBRATION SPECIALIST Work Phone: [facility] 06-29-2023 10:55-0500 Systolic blood pressure 129 mm[Hg] CALIBRATION SPECIALIST-C Marly Mo NP Work Phone: [facility] 05-08-2023 13:30-0500 Diastolic Blood Pressure Non-Invasive 75 mm[Hg] DR CHANTAL ZAPIEN MD [facility] 05-08-2023 13:30-0500 Heart rate 81 /min DR CHANTAL ZAPIEN MD [facility] 05-08-2023 13:30-0500 Respiratory rate 14 /min DR CHANTAL ZAPIEN MD [facility] 05-08-2023 13:30-0500 Systolic Blood Pressure Non-Invasive 177 mm[Hg] DR CHANTAL ZAPIEN MD [facility] 05-08-2023 12:42-0500 Diastolic Blood Pressure Non-Invasive 77 mm[Hg] DR CHANTAL ZAPIEN MD [facility] 05-08-2023 12:42-0500 Heart rate 91 /min DR CHANTAL ZAPIEN MD [facility] 05-08-2023 12:42-0500 Systolic Blood Pressure Non-Invasive 177 mm[Hg] DR CHANTAL ZAPIEN MD [facility] 05-08-2023 10:45-0500 Diastolic Blood Pressure Non-Invasive 64 mm[Hg] DR CHANTAL ZAPIEN MD [facility] 05-08-2023 10:45-0500 Heart rate 77 /min DR CHANTAL ZAPIEN MD [facility] 05-08-2023 10:45-0500 Systolic Blood Pressure Non-Invasive 134 mm[Hg] DR CHANTAL ZAPIEN MD [facility] 05-08-2023 10:15-0500 Heart rate 77 /min DR CHANTAL ZAPIEN MD [facility] 05-08-2023 09:06-0500 Body temperature 97.7 [degF] DR CHANTAL ZAPIEN MD [facility] 05-08-2023 09:06-0500 Body weight 59.[address] CHANTAL ZAPIEN MD [facility] 05-08-2023 09:06-0500 Respiratory rate 22 /min DR CHANTAL ZAPIEN MD [facility] 08-18-2022 09:38-0400 Body height 157.48 cm CALIBRATION SPECIALIST-C Marly Mo CALIBRATION SPECIALIST Work Phone: [facility] 08-18-2022 09:38-0400 Body mass index (BMI) [Ratio] 25.4 kg/m2 CALIBRATION SPECIALIST-C Marly Mo CALIBRATION SPECIALIST Work Phone: [facility] 08-18-2022 09:38-0400 Body temperature 98.1 [degF] CALIBRATION SPECIALIST-C Marly Mo CALIBRATION SPECIALIST Work Phone: [facility] 08-18-2022 09:38-0400 Body weight 63.27 kg CALIBRATION SPECIALIST-Triston Mo CALIBRATION SPECIALIST Work Phone: [facility] 08-18-2022 09:38-0400 Diastolic blood pressure 81 mm[Hg] CALIBRATION SPECIALIST-Triston Mo CALIBRATION SPECIALIST Work Phone: [facility] 08-18-2022 09:38-0400 Heart rate 82 /min CALIBRATION SPECIALIST-Triston Mo CALIBRATION SPECIALIST Work Phone: [facility] 08-18-2022 09:38-0400 Respiratory rate 16 /min CALIBRATION SPECIALIST-Triston Mo CALIBRATION SPECIALIST Work Phone: [facility] 08-18-2022 09:38-0400 SaO2% (BldA) [Mass fraction] 98 % CALIBRATION SPECIALIST-Triston Mo CALIBRATION SPECIALIST Work Phone: [facility] 08-18-2022 09:38-0400 Systolic blood pressure 147 mm[Hg] CALIBRATION SPECIALISTDorian Mo NP Work Phone: [facility] NEGATED: Highlighted [id number] 11:06-0400 BMI (Body Mass Index) 24.12 kg/m2 Sophie Winklestine MANUFACTURING SALES REPRESENTATIVE [facility] [place] [facility] Work Phone: NEGATED: Highlighted [id number] 11:06-0400 BP Diastolic 85 mm[Hg] Sophie Winklestine MANUFACTURING SALES REPRESENTATIVE [facility] Work Phone: NEGATED: Highlighted [id number] 11:06-0400 BP Diastolic 83 mm[Hg] Sophie Winklestine MANUFACTURING SALES REPRESENTATIVE [facility] Work Phone: NEGATED: Highlighted [id number] 11:06-0400 BP Systolic 152 mm[Hg] Sophie Winklestine MANUFACTURING SALES REPRESENTATIVE [facility] Work Phone: NEGATED: Highlighted [id number] 11:06-0400 BP Systolic 169 mm[Hg] Sophie Winklestine MANUFACTURING SALES REPRESENTATIVE [facility] Work Phone: NEGATED: Highlighted [id number] 11:06-0400 Height 162.56 cm Sophie Winklestine MANUFACTURING SALES REPRESENTATIVE [facility] Work Phone: NEGATED: Highlighted [id number] 11:06-0400 Height 163 cm Sophie Winklestine MANUFACTURING SALES REPRESENTATIVE [facility] Work Phone: NEGATED: Highlighted [id number] 11:06-0400 Pulse (Heart Rate) 74 /min Sophie Winklestine MANUFACTURING SALES REPRESENTATIVE [facility] Work Phone: NEGATED: Highlighted [id number] 11:06-0400 Weight 63.5 kg Sophie Winklestine MANUFACTURING SALES REPRESENTATIVE [facility] [facility] Work Phone: NEGATED: Highlighted [id number] Weight 64 kg Sophie Ricjeanette AUGUSTINE [facility] Work Phone: Encounters Encounter Date Encounter Type Care Provider Facility Start: 01-08-2025 End: 01-08-2025 Admission to same day surgery center Dr. Brien Ocampo MD [facility] Start: 01-08-2025 End: 01-08-[address] Lizzette Apple DO Work Phone: [facility] Start: 11-09-2024 End: 11-09-2024 Emergency department patient visit RAMON COX MD [facility] Start: 11-06-2024 End: 11-06-[address] Lizzette Apple DO Work Phone: [facility] Work Phone: Start: 11-06-2024 End: 11-06-[address] Brien Ocampo MD -Radiology [facility] Work Phone: Start: 11-06-2024 End: 11-06-2024 ambulatory Lizzette Apple Facility:[facility] Start: 10-10-2024 ambulatory Clarissa Oronai ty:[facility] Start: 10-05-2024 End: 10-09-2024 ambulatory LIZZETTE APPLE DO Facility:[facility] Start: 10-05-2024 End: 10-09-2024 Outreach Lab LIZZETTE APPLE DO [facility] Start: 10-02-2024 End: 10-02-2024 Patient encounter procedure Clarissa MATHEW -Radiology [facility] Work Phone: Start: 10-02-2024 End: 10-02-2024 ambulatory Clarissa Arnada Facility:[facility] Start: 09-20-2024 End: 09-20-2024 Patient encounter procedure Clarissa MATHEW -Radiology, [facility] Work Phone: Start: 09-20-2024 End: 09-20-2024 ambulatory Clarissa Aranda Facility:[facility] Start: 09-18-2024 End: 09-18-[address] Lizzette Apple DO Work Phone: [facility] Work Phone: Start: 09-18-2024 End: 09-18-2024 Patient encounter procedure Clarissa MATHEW -Radiology, [facility] Work Phone: Start: 09-18-2024 End: 09-18-2024 ambulatory Clarissa Aranda Facility:[facility] Start: 09-14-2024 End: 09-14-2024 Patient encounter procedure Clarissa MATHEW -[facility] Work Phone: Start: 09-14-2024 End: 09-14-2024 ambulatory Clarissa Aranda Facility:[facility] Start: 09-11-2024 End: 09-11-2024 Admission to same day surgery center Dr. Brien Ocampo MD -[facility] Start: 09-11-2024 End: 09-11-[address] Lizzette Apple DO Work Phone: [facility] Work Phone: Start: 09-04-2024 End: 09-04-2024 Patient encounter procedure Shanell Theodore NP- -[facility] Work Phone: Start: 09-04-2024 End: 09-04-2024 ambulatory Shanell Theodore CALIBRATION SPECIALIST Facility:[facility] Start: 09-04-[address] Sameer Mclaughlin MD -[facility] Start: 08-27-2024 End: 08-27-2024 ambulatory Silvia Moralez RN [facility] Start: 08-27-2024 End: 08-27-2024 Patient encounter procedure Silvia Moralez RN [facility] Start: 08-24-2024 End: 08-28-2024 ambulatory LIZZETTE APPLE DO Facility:[facility] Start: 08-20-2024 End: 08-20-2024 ambulatory eMlly Yates RN [facility] Start: 08-20-2024 End: 08-20-2024 Patient encounter procedure Melly Yates RN [facility] Start: 08-15-2024 End: 08-15-2024 Patient encounter procedure Clarissa Aranda NP-C -[facility] Work Phone: Start: 08-15-2024 End: 08-15-2024 ambulatory Clarissa Aranda Facility:[facility] Start: 08-11-2024 End: 08-11-2024 Emergency department patient visit Dr. Lizzette Apple DO Work Phone: -Emergency Department Work Phone: Start: 06-12-2024 End: 06-12-2024 Admission to same day surgery center Dr. Brien Ocampo MD -[facility] Start: 06-12-2024 End: 06-12-2024 ambulatory Brien Ocampo Facility:[facility] Start: 06-08-2024 ambulatory Joyce Aparicio Facility:[facility] Start: 05-29-2024 End: 05-29-2024 Patient encounter procedure Shanell Theodore NP-C -[facility] Work Phone: Start: 05-29-2024 End: 05-29-2024 ambulatory Shanell Theodore NP Facility:[facility] Start: 05-29-[address] Sameer Mclaughlin MD -[facility] Start: 04-28-2024 End: 04-28-2024 Patient encounter procedure Joyce Aparicio PA -[facility] Work Phone: Start: 04-28-2024 End: 04-28-2024 ambulatory Joyce Aparicio Facility:[facility] Start: 04-24-2024 ambulatory Brien Ocampo Facilit y:[facility] Start: 04-11-2024 ambulatory Shanell Theodore NP Facil ity:[facility] Start: 04-01-2024 End: 04-03-2024 Evaluation and management of inpatient Carlos Enrique Nguyễn Facility:[facility] Start: 04-01-2024 End: 04-01-2024 ambulatory Marcella See RN [facility] Start: 04-01-2024 End: 04-01-2024 Patient encounter procedure Marcella See RN [facility] Start: 03-30-2024 End: 03-30-2024 ambulatory LIZZETTE APPLE DO Facility:[facility] Start: 03-30-2024 End: 03-30-2024 Patient encounter procedure NURIS LEIGH ADJUNCT ENGLISH INSTRUCTOR-SENIOR OFFICE ASSISTANT [facility] Start: 03-28-2024 End: 03-28-2024 ambulatory Kamar Hurt Facility:[facility] Start: 03-27-2024 End: 03-27-2024 Emergency department patient visit Jaime Peters Facility:[facility] Start: 03-27-2024 ambulatory Lizzette Apple Facility :[facility] Start: 03-23-2024 End: 03-23-2024 ambulatory Shanell Theodore CALIBRATION SPECIALIST Facility:[facility] Start: 02-14-2024 End: 02-14-2024 ambulatory LIZZETTE AMBIKA DO Facility:[facility] Start: 02-14-2024 End: 02-14-2024 Patient encounter procedure LIZZETTE APPLE DO [facility] Start: 01-18-2024 End: 01-18-2024 ambulatory Antonina Lisa Facility:[facility] Start: 12-16-2023 End: 12-16-2023 ambulatory LIZZETTE FAYEY DO Facility:[facility] Start: 11-22-2023 End: 11-26-2023 ambulatory NURIS LEIGH ADJUNCT ENGLISH INSTRUCTOR-SENIOR OFFICE ASSISTANT Facility:[facility] Start: 11-22-2023 End: 11-26-2023 Outreach Lab NURIS LEIGH ADJUNCT ENGLISH INSTRUCTOR-SENIOR OFFICE ASSISTANT [facility] Start: 11-08-2023 End: 11-08-2023 ambulatory LIZZETTE FAYEY DO Facility:[facility] Start: 11-08-2023 End: 11-08-2023 Patient encounter procedure LIZZETTE APPLE DO [facility] Start: 11-03-2023 End: 11-03-2023 ambulatory LIZZETTE APPLE DO Facility:[facility] Start: 11-03-2023 End: 11-03-2023 Patient encounter procedure LIZZETTE APPLE DO [facility] Start: 10-13-2023 End: 10-13-2023 ambulatory BENITOBEATRIZ BAI ADJUNCT ENGLISH INSTRUCTOR-SENIOR OFFICE ASSISTANT Facility:[facility] Start: 10-05-2023 End: 10-05-2023 Emergency department patient visit CALIBRATION SPECIALISTEribertoC Marly Mo NP Work Phone: [facility]-Emergency Department Work Phone: Start: 10-04-2023 End: 10-04-2023 Emergency department patient visit LEONARDO GUIDRY DO [facility] Start: 09-30-2023 ambulatory LIZZETTE LYNCHLAY DO Facil ity:[facility] Start: 09-28-2023 End: 09-28-2023 ambulatory LIZZETTE AMBIKA DO Facility:B Start: 09-24-2023 End: 09-24-2023 ambulatory LEONARDOWILD SHENKAREN ADJUNCT ENGLISH INSTRUCTOR-SENIOR OFFICE ASSISTANT Facility:B Start: 09-24-2023 End: 09-24-2023 Patient encounter procedure LEONARDO KAREN ADJUNCT ENGLISH INSTRUCTOR-SENIOR OFFICE ASSISTANT [facility] Start: 09-21-2023 End: 09-21-2023 Emergency department patient visit GOKUL REYES MD [facility] Start: 09-13-2023 End: 09-17-2023 ambulatory LEONARDO KAREN ADJUNCT ENGLISH INSTRUCTOR-SENIOR OFFICE ASSISTANT Facility:B Start: 09-09-2023 End: 09-09-2023 ambulatory GALE VACCCASSANDRALLI PA-C Facility:B Start: 09-09-2023 End: 09-09-2023 Patient encounter procedure GALE VACCARELLI PA-C [facility] Start: 09-07-2023 Registered Recurring CALIBRATION SPECIALIST-Triston Mo CALIBRATION SPECIALIST Work Phone: [facility] Start: 09-07-2023 End: 09-07-2023 Patient encounter procedure CALIBRATION SPECIALISTDorian Mo NP Work Phone: [facility] Work Phone: Start: 08-03-2023 End: 08-07-2023 ambulatory LIZZETTE APPLE DO Facility:B Start: 08-03-2023 End: 08-07-2023 Outreach Lab LIZZETTE APPLE DO [facility] Start: 07-27-2023 End: 07-27-2023 Patient encounter procedure CALIBRATION SPECIALISTDorian Mo CALIBRATION SPECIALIST Work Phone: [facility] Work Phone: Start: 06-29-2023 End: 06-29-2023 Patient encounter procedure CALIBRATION SPECIALISTDorian Mo CALIBRATION SPECIALIST Work Phone: [facility] Work Phone: Start: 05-13-2023 End: 05-13-2023 ambulatory LIZZETTE APPLE DO Facility:B Start: 05-13-2023 End: 05-13-2023 Patient encounter procedure LIZZETTE APPLE DO [facility] Start: 05-08-2023 End: 05-08-2023 Emergency department patient visit DR CHANTAL ZAPIEN MD [facility] Start: 05-04-2023 End: 05-08-[address] CHELI BARRIGA DO Facility:B Start: 05-04-2023 End: 05-08-[address] CHELI BARRIGA DO [facility] Start: 08-28-2022 End: 09-01-2022 Outreach Lab LIZZETTE APPLE DO [facility] Start: 08-26-2022 End: 08-26-2022 ambulatory CALIBRATION SPECIALIST-C Marly Mo CALIBRATION SPECIALIST Work Phone: [facility] Work Phone: Start: 08-26-2022 End: 08-26-2022 Patient encounter procedure CALIBRATION SPECIALIST-Triston Mo CALIBRATION SPECIALIST Work Phone: [facility] Start: 08-18-2022 Registered Recurring CALIBRATION SPECIALIST-Triston Mo CALIBRATION SPECIALIST Work Phone: [facility] Start: 08-18-2022 End: 08-18-2022 Patient encounter procedure CALIBRATION SPECIALIST-Triston Mo CALIBRATION SPECIALIST Work Phone: [facility] Start: 08-13-2022 End: 08-13-2022 Patient encounter procedure LIZZETTE APPLE DO [facility] Start: 08-05-2022 End: 08-09-2022 Outreach Lab LIZZETTE APPLE DO [facility] Start: 07-17-2022 End: 07-17-2022 Patient encounter procedure LIZZETTE APPLE DO [facility] Start: 07-07-2022 End: 07-07-2022 Patient encounter procedure LIZZETTE APPLE DO [facility] Start: 05-12-2022 End: 05-12-2022 Patient encounter procedure LIZZETTE APPLE DO [facility] Start: 02-24-2022 End: 02-24-2022 Patient encounter procedure JOSE NOGUEIRA ADJUNCT ENGLISH INSTRUCTOR-SENIOR OFFICE ASSISTANT [facility] Start: 11-25-2021 End: 11-25-2021 Patient encounter procedure LIZZETTE APPLE DO [facility] Start: 10-29-2021 End: 10-29-2021 Patient encounter procedure LIZZETTE APPLE DO [facility] Start: 07-04-2021 End: 07-04-2021 Patient encounter procedure LIZZETTE APPLE DO [facility] Start: 07-02-2021 End: 07-06-2021 Outreach Lab LIZZETTE APPLE DO [facility] Start: 06-03-2021 End: 06-03-2021 Patient encounter procedure RAZIA STRONG DO [facility] Start: 05-12-2021 End: 05-12-2021 Patient encounter procedure LIZZETTE APPLE DO [facility] Start: 05-06-2021 End: 05-06-2021 Patient encounter procedure LIZZETTE APPLE DO [facility] Procedures Date Procedure Procedure Detail Performing Clinician Start: 01-08-[address] Lizzette Apple DO Work Phone: Start: 11-06-2024 Plain X-ray of shoulder Dr. Lizzette Apple DO Work Phone: Start: 10-02-[address] Janine Apple DO Work Phone: Start: 09-20-2024 Plain X-ray abdomen Dr. Lizzette Apple DO Work Phone: Start: 09-18-2024 Plain X-ray abdomen Dr. Lizzette Apple DO Work Phone: Start: 09-11-2024 Local anesthetic sac ral epidural block Dr. Lizzette Apple DO Work Phone: Start: 09-11-2024 Injection of spinal epidural space Dr. Lizzette Apple DO Work Phone: Start: 09-11-2024 Injection using fluoroscopic guidance Dr. Lizzette Apple DO Work Phone: Start: 09-04-[address] Lizzette Apple DO Work Phone: Start: 08-11-2024 Urnls dip stick/tabl et reagent auto microscopy Dr. Lizzette Apple DO Work Phone: Start: 08-11-2024 Computed tomography of abdomen and pelvis with intravenous contrast Dr. Lizzette Apple DO Work Phone: Start: 08-11-[address] Lizzette Apple DO Work Phone: Start: 06-12-2024 End: 06-12-2024 Injection of facet joint Dr. Lizzette lacey DO Work Phone: Start: 06-12-2024 Fluoroscopy guided injection of cervical spinal nerve root Dr. Lizzette Apple DO Work Phone: Start: 06-12-2024 X-ray of cervical spine Dr. Lizzette Apple DO Work Phone: Start: 05-29-2024 Measurement of renal function Dr. Lizzette Apple DO Work Phone: Comment on above: GFR Calc Start: 04-28-2024 X-ray of cervical spine Dr. Lizzette Apple DO Work Phone: Start: 03-23-2024 Lymphocyte percent differential count Dr. Lizzette Apple DO Work Phone: Start: 01-03-[address] Lizzette Apple DO Work Phone: Start: 04-15-2023 Measurement of occul t blood in stool specimen using immunoassay CALIBRATION SPECIALIST-C Marly Mo CALIBRATION SPECIALIST Work Phone: Start: 08-26-2022 CT of chest and abdomen CALIBRATION SPECIALIST-C Marly Mo CALIBRATION SPECIALIST Work Phone: Start: 10-05-2017 End: 10-05-2017 CERVICAL COLLAR SERPENTINE (BREG) Tacos Estes DO Work Phone: Abdominal hysterectomy RON APPLE DO Appendectomy LIZZETTE APPLE DO Bilateral salpingect lina with oophorectomy LIZZETTE APPLE DO Refusal of treatment by patient Procedure refused LIZZETTE APPLE DO Tonsillectomy LIZZETTE APPLE DO Umbilical hernia (disorder) LIZZETTE APPLE DO Plan of Treatment Date Care Activity Detail Author Start: 01-08-2025 Fluoroscopic guidance [facility] Start: 01-08-2025 Patient discharge [facility] Start: 09-11-2024 Anes dx/ther nerve block/injection prone pos ANESTH N BLOCK/INJ PRONE [facility] Start: 09-11-2024 Njx dx/ther sbst intrlmnr lmbr/sac w/img gdn NJX INTERLAMINAR LMBR/SAC [facility] Start: 09-11-2024 Patient discharge [facility] Start: 08-11-2024 [facility] Start: 06-12-2024 Anes dx/ther nerve block/injection prone pos ANESTH N BLOCK/INJ PRONE [facility] Start: 06-12-2024 Njx dx/ther agt pvrt facet jt crv/thrc 1 level INJ [facility] JNT C/T 1 [facility] Start: 06-12-2024 Njx dx/ther agt pvrt facet jt crv/thrc 2nd level INJ [facility] F JNT C/T 2 [facility] Start: 06-12-2024 Njx dx/ther agt pvrt facet jt crv/thrc 3+ level INJ [facility] F JNT C/T 3 [facility] Start: 06-12-2024 Patient discharge [facility] Start: 02-06-2024 COVID-19 Vaccine ( season) COVID-19 Vaccine ( season) [facility] Start: 02-06-2024 Influenza vaccination Influenza Vaccine (#1) [facility] Start: 10-05-2023 [facility] Start: 2014 RSV Immunization for Adults (1 - 1-dose 75+ series) RSV Immunization for Adults (1 - 1-dose 75+ series) [facility] Start: 02-12-2004 Pneumococcal Vaccine: 65+ Years (1 of 1 - PCV) Pneumococcal Vaccine: 65+ Years (1 of 1 - PCV) [facility] Start: 1989 Pneumococcal Vaccine: 50+ Years (1 of 1 - PCV) Pneumococcal Vaccine: 50+ Years (1 of 1 - PCV) [facility] Start: 1989 Zoster Vaccines (1 of 2) Zoster Vaccines (1 of 2) [facility] Start: 1958 DTaP/Tdap/Td Vaccines (1 - Tdap) DTaP/Tdap/Td Vaccines (1 - Tdap) [facility] Start: 1951 Depression Screening Depression Screening [facility] Start: 1939 Screening for osteoporosis Bone Density Scan [facility] CBC W Auto Different ial panel - Blood [facility] CBC W Auto Different ial panel - Blood [facility] CBC W Auto Different ial panel - Blood [facility] metabo lic 1999 panel - Serum or Plasma [facility] metabo lic 1999 panel - Serum or Plasma [facility] Lactate dehydrogenas e measurement [facility] Lactate dehydrogenas e measurement [facility] Lactate dehydrogenas e measurement [facility] MR Cervical spine [facility] Patient Education [facility] Work Phone: Patient referral [facility] Work Phone: Radiologic exam esophagus double contrast study [facility] Immunizations Immunization Date Immunization Notes Care Provider Fa cility 06-08-2024 tetanus toxoid, redu xiao diphtheria toxoid, and acellular pertussis vaccine, adsorbed LIZZETTE APPLE DO [facility] 05-06-2021 COVID-19, mRNA, LNP- S, PF, 100 mcg/ 0.5 mL dose; Translations: [Moderna COVID-19 Vaccine] LIZZETTE APPLE DO [facility] 09-25-2020 zoster vaccine recombinant LIZZETTE APPLE DO [facility] 08-13-2020 COVID-19, mRNA, LNP- S, PF, 100 mcg/ 0.5 mL dose; Translations: [Moderna COVID-19 Vaccine] LIZZETTE APPLE DO [facility] 07-16-2020 COVID-19, mRNA, LNP- S, PF, 100 mcg/ 0.5 mL dose; Translations: [Moderna COVID-19 Vaccine] LIZZETTE APPLE DO [facility] 04-19-2020 zoster vaccine recombinant LIZZETTE APPLE DO [facility] 04-19-2020 zoster vaccine, live LIZZETTE APPLE DO [facility] Comment on above: Result Comment: [] [facility] 07-09-2015 pneumococcal conjuga te vaccine, 13 valent LIZZETTE AMBIKA DO [facility] 12-07-2013 tetanus toxoid, redu xiao diphtheria toxoid, and acellular pertussis vaccine, adsorbed LIZZETTE AMBIKA DO [facility] 08-02-2013 pneumococcal polysaccharide vaccine, 23 valent LIZZETTE AMBIKA DO [facility] 12-15-2012 zoster vaccine, live LIZZETTE AMBIKA DO [facility] 07-01-2009 hepatitis A and hepatitis B vaccine LIZZETTE AMBIKA DO [facility] 05-21-2009 adenovirus, type 4 a nd type 7, live, oral LIZZETTE AMBIKA DO [facility] 05-21-2009 hepatitis A vaccine, adult dosage LIZZETTE AMBIKA DO [facility] 05-21-2009 hepatitis B vaccine, adult dosage LIZZETTE APPLE DO [facility] No information available. Sophie Durham LPN [facility] [facility] Work Phone: Payers Date Payer Category Payer Medicare [id number] 2022 Self-pay [id number] 2018 Private Health Insurance [id number] 2018 Unknown [id number] 1939 Unknown [id number] 2.16.8 40.1.513417.3.579.2.62 1939 Unknown [id number] 2.16.8 40.1.976079.3.579.2.62 1939 Unknown [id number] 2.16.8 40.1.628104.3.579.2.62 1939 Unknown [id number] 2.16.8 40.1.072664.3.579.2.62 1939 Unknown [id number] 2.16.8 40.1.768783.3.579.2.62 1939 Unknown [id number] 2.16.8 40.1.843340.3.579.2.62 1939 Unknown [id number] 2.16.8 40.1.609051.3.579.2.62 1939 Unknown [id number] 2.16.8 40.1.384165.3.579.2.627 1939 Unknown [id number] 2.16.8 40.1.412555.3.579.2.62 1939 Unknown [id number] 2.16.8 40.1.836996.3.579.2.62 1939 Unknown [id number] 2.16.8 40.1.935086.3.579.2.62 1939 Unknown [id number] 2.16.8 40.1.535023.3.579.2.62 1939 Unknown [id number] 2.16.8 40.1.202258.3.579.2627 1939 Unknown [id number] 2.16.8 40.1.969958.3.579.2.627 1939 Unknown [id number] 2.16.8 40.1.289846.3.579.2.627 1939 Unknown [id number] 2.16.8 40.1.706604.3.579.2.62 1939 Unknown [id number] 2.16. 840.1.541768.3.579.2.62 1939 Unknown [id number] 2.16.8 40.1.726215.3.579.2.62 1939 Unknown [id number] 2.16.8 40.1.048330.3.579.2.62 1939 Unknown [id number] 2.16.8 40.1.369728.3.579.2. 1939 Unknown [id number] 2.16.8 40.1.269545.3.579.2.627 Unknown [id number] 2.16.8 40.1.229476.3.579.2.462 Unknown [id number] 2.16.8 40.1.054968.3.579.2.462 Unknown [id number] 2.16.8 40.1.481001.3.579.2.462 Unknown [id number] 2.16.8 40.1.783593.3.579.2.462 Unknown [id number] 2.16.8 40.1.437570.3.579.2.462 Unknown [id number] 2.16.8 40.1.880038.3.579.2.462 Unknown [id number] 2.16.8 40.1.405886.3.579.2.462 Unknown [id number] 2.16.8 40.1.687950.3.579.2.462 Unknown [id number] 2.16.8 40.1.682370.3.579.2.462 Unknown [id number] 2.16.8 40.1.258531.3.579.2.462 Unknown [id number] 2.16.8 40.1.682421.3.579.2.462 Unknown [id number] 2.16.8 40.1.349110.3.579.2.462 Unknown [id number] 2.16.8 40.1.517336.3.579.2.462 Unknown [id number] 2.16.8 40.1.074475.3.579.2.462 Unknown [id number] 2.16.8 40.1.788494.3.579.2.462 Unknown [id number] 2.16.8 40.1.399402.3.579.2.462 Unknown [id number] 2.16.8 40.1.465286.3.579.2.462 Unknown [id number] 2.16.8 40.1.398316.3.579.2.462 Unknown [id number] 2.16.8 40.1.151525.3.579.2.462 Unknown [id number] 2.16.8 40.1.183524.3.579.2.462 Unknown [id number] 2.16.8 40.1.510151.3.579.2.462 Unknown [id number] 2.16.8 40.1.596038.3.579.2.462 Unknown [id number] 2.16.8 40.1.225946.3.579.2.462 Unknown [id number] 2.16.8 40.1.567505.3.579.2.462 Unknown [id number] 2.16.8 40.1.047048.3.579.2.462 Unknown [id number] 2.16.8 40.1.476334.3.579.2.462 Unknown [id number] 2.16.8 40.1.858692.3.579.2.462 Unknown [id number] 2.16.8 40.1.587463.3.579.2.462 Social History Date Type Detail Facility Start: 04-09-2020 End: 01-01-2025 Never smoked tobacco (finding) [facility] Start: 1940 Sex Assigned At Female A [facility] Start: 08-14-2022 End: 10-05-2023 Tobacco smoking status NHIS Unknown if ever smoked [facility] Start: 1940 Sex assigned at Not on file [facility] Start: 05-01-2019 End: 04-01-2024 Sex Female (finding) [facility] Gender identity Not on file [facility] Sexual Orientation [facility] NEGATED: Highlighted rowStart: 10-05-2017 End: 10-05-2017 Alcohol use ETOH USE No [facility] Work Phone: NEGATED: Highlighted rowStart: 10-05-2017 End: 10-05-2017 Details of drug misuse behavior DRUG USE No [facility] Work Phone: NEGATED: Highlighted rowStart: 10-05-2017 End: 10-05-2017 How many days of moderate to strenuous exercise, like a brisk walk, did you do in the last 7 days? EXERCISEFREQ 2 days per week [facility] Work Phone: NEGATED: Highlighted rowStart: 10-05-2017 End: 10-05-2017 Assertion Never smoker [facility] Work Phone: Medical Equipment Procedure Code Equipment Code Equipment Origin al Text Equipment Identifier Dates Kyphoplasty Orthopaedic ceme nt, non-antimicrobial [id number] FDA Start: 10-21-2023 Goals Date Patient Goal Desired Activity /State Functional Status Date Assessment Result Facility 10-04-2023 Functional Status Independent [facility] 10-04-2023 Functional Status ID band on, Call device within reach, Bed in low position, Wheels locked, Upper/Half-Length side-rails up, Visitor at bedside, Safety level maintained [facility] 09-21-2023 Functional Status Independent [facility] 09-21-2023 Functional Status ID band on, Call device within reach, Bed in low position, Wheels locked, Upper/Half-Length side-rails up, Visitor at bedside, Safety level maintained [facility] 05-08-2023 Functional Status Assistive Device None [facility] 05-08-2023 Functional Status Repositions self [facility] Mental Status Date Assessment Result Facility 01-08-2025 Cognitive function Voice/Name [facility] Work Phone: 09-11-2024 Cognitive function Voice/Name [facility] Work Phone: 06-12-2024 Cognitive function Touch/Shaking [facility] Work Phone: 10-04-2023 Mental Status Orientation Oriented x 4 [facility] 10-04-2023 Mental Status [facility] 09-21-2023 Mental Status Orientation Oriented x 4 [facility] 09-21-2023 Mental Status [facility] 05-08-2023 Mental Status Orientation Oriented x 4 [facility] Clinical Notes 07-17-2022 to 01-08-2025 Note Date & Type Note Facility 01-08-2025 Consult note [facility] 01-08-2025 Procedure note [facility] 01-08-2025 Consult note [facility] 11-09-2024 Hospital Discharge instructions Patient Education 11/09/2024 11:53:31 Shoulder Sprain Shoulder Sprain A sprain is a stretching or tearing of the ligaments that hold a joint together. A sprain may take up to 8 weeks to fully heal, depending on how severe it is. Moderate to severe shoulder sprains are treated with a sling or shoulder immobilizer. Minor sprains can be treated without any special support. Home care The following guidelines will help you care for your injury at home: If a sling was given to you, leave it in place for the time advised by your healthcare provider. If you aren t sure how long to wear it, ask for advice. If the sling becomes loose, adjust it so that your forearm is level with the ground. Your shoulder should feel well supported. Put an ice pack on the injured area for 20 minutes every 1 to 2 hours the first day. You can make your own ice pack by putting ice cubes in a plastic bag. A bag of frozen peas or something similar works well too. Wrap the bag in a thin towel. Continue with ice packs 3 to 4 times a day for the next 2 to 3 days. Then use the pack as needed to ease pain and swelling. You may use acetaminophen or ibuprofen to control pain, unless another pain medicine was prescribed. If you have chronic liver or kidney disease, talk with your healthcare provider before using these medicines. Also talk with your provider if you ve had a stomach ulcer or gastrointestinal bleeding. Shoulder joints become stiff if left in a sling for too long. You should start range of motion exercises about 7 to 10 days after the injury. Talk with your provider to find out what type of exercises to do and how soon to start. Follow-up care Follow up with your healthcare provider, or as advised. Any X-rays you had today don t show any broken bones, breaks, or fractures. Sometimes fractures don t show up on the first X-ray. Bruises and sprains can sometimes hurt as much as a fracture. These injuries can take time to heal completely. If your symptoms don t improve or they get worse, talk with your provider. You may need a repeat X-ray or other treatments. When to seek medical advice Call your healthcare provider right away if any of these occur: Shoulder pain or swelling in your arm that gets worse Fingers become cold, blue, numb, or tingly Large amount of bruising of the shoulder or upper arm Fever or chills [id number] [employer]. [address] [place] [address], [place] [address]. All rights reserved. This information is not intended as a substitute for professional medical care. Always follow your healthcare professional's instructions. 11/09/2024 11:53:06 Hypertension, Established Established High Blood Pressure High blood pressure (hypertension) is a chronic disease. Often, healthcare providers don t know what causes it. But it can be caused by certain health conditions and medicines. If you have high blood pressure, you may not have any symptoms. If you do have symptoms, they may include headache, dizziness, changes in your vision, chest pain, and shortness of breath. But even without symptoms, high blood pressure that s not treated raises your risk for heart attack, heart failure, and stroke. High blood pressure is a serious health risk and shouldn t be ignored. Blood pressure measurements are given as 2 numbers. Systolic blood pressure is the upper number. This is the pressure when the heart contracts. Diastolic blood pressure is the lower number. This is the pressure when the heart relaxes between beats. You will see your blood pressure readings written together. For example, a person with a systolic pressure of 118 and a diastolic pressure of 78 will have 118/78 written in the medical record. Blood pressure is categorized as normal, elevated, or stage 1 or stage 2 high blood pressure: Normal blood pressure is systolic of less than 120 and diastolic of less than 80 (120/80) Elevated blood pressure is systolic of 120 to 129 and diastolic less than 80 Stage 1 high blood pressure is systolic is 130 to 139 or diastolic between 80 to 89 Stage 2 high blood pressure is when systolic is 140 or higher or the diastolic is 90 or higher Home care If you have high blood pressure, follow these home care guidelines to help lower your blood pressure. If you are taking medicines for high blood pressure, these methods may reduce or end your need for medicines in the future. Start a weight-loss program if you are overweight. Cut back on how much salt you get in your diet. Here s how to do this: oDon t eat foods that have a lot of salt. These include olives, pickles, smoked meats, and salted potato chips. oDon t add salt to your food at the table. oUse only small amounts of salt when cooking. Start an exercise program. Talk with your healthcare provider about the type of exercise program that would be best for you. It doesn't have to be hard. Even brisk walking for 20 minutes 3 times a week is a good form of exercise. Don t take medicines that stimulate the heart. This includes many vfyi-fwq-jvwkdpw cold and sinus decongestant pills and sprays, as well as diet pills. Check the warnings about high blood pressure on the label. Before buying any ibye-roh-oqtwwqy medicines or supplements, always ask the pharmacist about the product's potential interaction with your high blood pressure and your high blood pressure medicines. Stimulants such as amphetamine or cocaine could be deadly for someone with high blood pressure. Never take these. Limit how much caffeine you get in your diet. Switch to caffeine-free products. Stop smoking. If you are a long-time smoker, this can be hard. Talk to your healthcare provider about medicines and nicotine replacement options to help you. Also, enroll in a stop-smoking program to make it more likely that you will quit for good. Learn how to handle stress. This is an important part of any program to lower blood pressure. Learn about relaxation methods like meditation, yoga, or biofeedback. If your provider prescribed medicines, take them exactly as directed. Missing doses may cause your blood pressure get out of control. If you miss a dose or doses, check with your healthcare provider or pharmacist about what to do. Consider buying an automatic blood pressure machine to check your blood pressure at home. Ask your provider for a recommendation. You can get one of these at most pharmacies. The [place] [employer] recommends the following guidelines for home blood pressure monitoring: Don't smoke or drink coffee for 30 minutes before taking your blood pressure. Go to the bathroom before the test. Relax for 5 minutes before taking the measurement. Sit with your back supported (don't sit on a couch or soft chair); keep your feet on the floor uncrossed. Place your arm on a solid flat surface (like a table) with the upper part of the arm at heart level. Place the middle of the cuff directly above the bend of the elbow. Check the monitor's instruction manual for an illustration. Take multiple readings. When you measure, take 2 to 3 readings one minute apart and record all of the results. Take your blood pressure at the same time every day, or as your healthcare provider recommends. Record the date, time, and blood pressure reading. Take the record with you to your next medical appointment. If your blood pressure monitor has a built-in memory, simply take the monitor with you to your next appointment. Call your provider if you have several high readings. Don't be frightened by a single high blood pressure reading, but if you get several high readings, check in with your healthcare provider. Note: When blood pressure reaches a systolic (top number) of 180 or higher OR diastolic (bottom number) of 110 or higher, seek emergency medical treatment. Follow-up care You will need to see your healthcare provider regularly. This is to check your blood pressure and to make changes to your medicines. Make a follow-up appointment as directed. Bring the record of your home blood pressure readings to the appointment. When to seek medical advice Call your healthcare provider right away if any of these occur: Blood pressure reaches a systolic (upper number) of 180 or higher OR a diastolic (bottom number) of 110 or higher Chest pain or shortness of breath Severe headache Throbbing or rushing sound in the ears Nosebleed Sudden severe pain in your belly (abdomen) Extreme drowsiness, confusion, or fainting Dizziness or spinning sensation (vertigo) Weakness of an arm or leg or one side of the face You have problems speaking or seeing [id number] [employer]. [address] [place] [address]. All rights reserved. This information is not intended as a substitute for professional medical care. Always follow your healthcare professional's instructions. 11/09/2024 11:52:55 Fracture, Wrist, General Wrist Fracture, General You have a broken bone (fracture) in your wrist. This may be a small crack or chip in the bone. Or it may be a major break, with the broken parts pushed out of position. Wrist fractures are often treated with a splint or cast. They take about 4 to 6 weeks to heal. Severe injuries may need surgery. Home care Follow these guidelines when caring for yourself at home: Keep your arm elevated to reduce pain and swelling. When sitting or lying down keep your arm above the level of your heart. You can do this by placing your arm on a pillow that rests on your chest or on a pillow at your side. This is most important during the first 2 days (48 hours) after the injury. Put an ice pack on the injured area. Do this for 20 minutes every 1 to 2 hours the first day for pain relief. You can make an ice pack by wrapping a plastic bag of ice cubes in a thin towel. As the ice melts, be careful that the cast or splint doesn t get wet. Continue using the ice pack 3 to 4 times a day for the next 2 days. Then use the ice pack as needed to ease pain and swelling. Keep the cast or splint completely dry at all times. Bathe with your cast or splint out of the water. Protect it with a large plastic bag, rubber-banded or taped at the top end. If a fiberglass cast or splint gets wet, you can dry it with a electric wheelchair repairer on a cool setting. You may use acetaminophen or ibuprofen to control pain, unless another pain medicine was prescribed. If you have chronic liver or kidney disease, talk with your healthcare provider before using these medicines. Also talk with your provider if you ve had a stomach ulcer or gastrointestinal bleeding. Don t put creams, lotions, or objects under the cast. Follow-up care Follow up with your healthcare provider as advised. This is to make sure the bone is healing the way it should. If a splint was put on, it may be changed to a cast during your follow-up visit. A cast may need to be changed at 2 to 3 weeks, as the swelling goes down. If X-rays were taken, a radiologist may look at them. You will be told of any new findings that may affect your care. When to seek medical advice Call your healthcare provider right away if any of these occur: The plaster cast or splint becomes wet or soft The cast or splint cracks Bad odor from the cast or wound fluid stains the cast The fiberglass cast or splint stays wet for more than 24 hours Tightness or pain under the cast or splint gets worse Fingers become swollen, cold, blue, numb, or tingly You can t move your fingers Skin around cast becomes red, swollen, or irritated [id number] [employer]. [address] [place] [address], [place] [address]. All rights reserved. This information is not intended as a substitute for professional medical care. Always follow your healthcare professional's instructions. 11/09/2024 11:52:45 Fall, Mechanical Mechanical Fall You have had a fall today. It appears that the cause is what is called mechanical. That means that you slipped, tripped, or lost your balance. If your fall had been because of fainting or a seizure, you might need other tests. It is normal to feel sore and tight in your muscles and back the next day, and not just the muscles you injured at first. Remember, all the parts of your body are connected, so while initially one area hurts, the next day another may hurt. Also, when you injure yourself, it causes inflammation, which then causes the muscles to tighten up and hurt more. After the initial worsening, it should gradually improve over the next few days. Do report more severe pain. Even without a definite head injury, you can still get a concussion from your head suddenly jerking forward, backward, or sideways when falling. Concussions and even bleeding can still happen, especially if you have had a recent injury or take blood thinner medicine. It is not unusual to have a mild headache and feel tired and even nauseous or dizzy. Home care Rest today and go back to your normal activities when you are feeling back to normal. If you were injured during the fall, follow the advice from your healthcare provider regarding care of your injury. At first, do not try to stretch out the sore spots. If there is a strain, stretching may make it worse. Massage may help relax the muscles without stretching them. You can use an ice pack or cold compress on and off to the sore spots 10 to 20 minutes at a time, as often as you feel comfortable. This may help reduce the inflammation, swelling and pain. If you have any scrapes or abrasions, they usually heal within 10 days. It is important to keep the abrasions clean while they initially start to heal. However, an infection may happen even with proper care, so watch for early signs of infection (such as warmth, redness, or swelling). Medicines Talk to your healthcare provider before taking new medicines, especially if you have other medical problems or are taking other medicines. If you need anything for pain, you can take acetaminophen or ibuprofen, unless you were given a different pain medicine to use. Talk with your healthcare provider before using these medicines if you have chronic liver or kidney disease, or ever had a stomach ulcer or gastrointestinal bleeding, or are taking blood thinner medicines. Be careful if you are given prescription pain medicines, narcotics, or medicine for muscle spasm. They can make you sleepy and dizzy, and can affect your coordination, reflexes, and judgment. Do not drive or do work where you can injure yourself when taking them. Fall prevention Fix, remove, or replace anything that caused your fall. Make your home safe by keeping walkways clear of objects you may trip over. Use nonslip pads under rugs. Don't use small area rugs or throw rugs. Don't walk in poorly lit areas. Don't stand on chairs or wobbly ladders. Use caution when reaching overhead or looking upward. This position can cause a loss of balance. Be sure your shoes fit properly, have nonslip bottoms and are in good condition. Be cautious when going up and down curbs, and walking on uneven sidewalks. If your balance is poor, consider using a cane or walker. Stay as active as you can. Balance, flexibility, strength, and endurance all come from exercise. They all play a role in preventing falls. If you have pets, know where they are before you stand up or walk so you don't trip over them. Limit alcohol intake. Alcohol can cause balance problems and increase the risk of falls. Use night lights. Have your eyes tested to be sure you are seeing well, even if you already wear glasses. Follow-up Follow up with your healthcare provider, or as advised. If X-rays or CT scans were done, you will be notified if there is a change in the reading, especially if it affects treatment. Call 911 Call 911 if any of these happen: Trouble breathing Confused or difficulty arousing Fainting or loss of consciousness Rapid or very slow heart rate Seizure Difficulty with speech or vision, weakness of an arm or leg Difficulty walking or talking, loss of balance, numbness or weakness in one side of your body, or facial droop When to seek medical advice Call your healthcare provider right away if any of these happen: Repeated mechanical falls, or unexplained falls Dizziness Severe headache Blood in vomit, stools (black or red color) [id number] [employer]. [address] [place] [address], [place] [address]. All rights reserved. This information is not intended as a substitute for professional medical care. Always follow your healthcare professional's instructions. Follow Up Care 11/09/2024 09:55:29 With:JANET MONSALVE Address: [address] [place] [address] [facility] [place] [address]- [phone] Business (1) When:11/10/2024 Comments:Schedule appointment as soon as possibleReturn to ED if symptoms worsenIce elevate till seenReturn for any signs of neurovascular compromiseTylenol for pain and may add oxycodone as neededIf you take oxycodone use axcr-zfc-sdfeynz Colace or docusate twice daily and a fiber supplement like Benefiber or Metamucil or MiraLAX twice daily With:LIZZETTE APPLE Address: [address] [place] [phone] [phone] Business (1) When:2-4 days Comments:Schedule appointment as soon as possibleFollow-up for blood pressure [facility] 11-09-2024 Note Discharge Instructions Thank you for allowing [facility] to assist you with your healthcare needs. The following is important discharge information regarding your hospital visit. Diagnosis from Today's Visit Wrist fracture, left What to Do Next Instructions from Your Care Team Discharge Home Equipment - Ordered -- Sling, Arm Left, 99 month(s), 11/09/24 11:52:00 EDT Post Acute Orders No qualifying data available. You Need to Schedule the Following Appointments Follow Up with LIZZETTE APPLE When:Within 2-4 days Where:[address] [place] [phone] [phone] Business (1) Additional Information: Schedule appointment as soon as possible Follow-up for blood pressure Follow Up with JANET MONSALVE When:11/10/2024 12:00 AM EDT Where:[address] [facility] [place] [place] [address]- [phone] Business (1) Additional Information: Schedule appointment as soon as possible Return to ED if symptoms worsen Ice elevate till seen Return for any signs of neurovascular compromise Tylenol for pain and may add oxycodone as needed If you take oxycodone use [id number]-[id number] Colace or docusate twice daily and a fiber supplement like Benefiber or Metamucil or MiraLAX twice daily Allergies NKA Medications Please ask your primary doctor or pharmacist before taking any other medication not listed, including over the counter drugs, herbal medications, vitamins and or supplements as they may interact with your home medications. What How Much When Why Instructions Last Dose New ondansetron (Zofran ODT use ondansetron oral tablet, disintegrating ) 4 Milligram by mouth Two (2) times a day Duration: 3 Days As needed for nausea and vomiting Printed Prescription New oxyCODONE (oxyCODONE 5 mg oral tablet ( IMMEDIATE release )) 1 tab(s) by mouth Every 6 hours Wrist fracture, left Duration: 3 Days As needed for pain take with food Printed Prescription Unchanged acetaminophen 1,000 Milligram by mouth Every 6 hours Unchanged busPIRone (busPIRone 5 mg oral tablet) 1 tab(s) by mouth Two (2) times a day Anxiety Unchanged DME (DME MISCellaneous) See instructions Compression fracture of vertebra CLL (chronic lymphocytic leukemia) Electronic lift chair Unchanged gabapentin (gabapentin 100 mg oral capsule) 1 cap by mouth Daily at bedtime Unchanged levocetirizine (Xyzal 5 mg oral tablet) 1 tab(s) by mouth Daily at bedtime Seasonal allergies Unchanged levothyroxine (levothyroxine 88 mcg (0.088 mg) oral tablet) 1 tab(s) by mouth Once a day Hypothyroid 1 tablet by mouth daily Unchanged linaclotide (Linzess 145 mcg oral capsule) 1 cap by mouth Once a day Unchanged losartan (losartan 50 mg oral tablet) 1 tab(s) by mouth Once a day Hypertension High blood pressure Unchanged sertraline (sertraline 50 mg oral tablet) 1 tab(s) by mouth Once a day Major depression Anxiety Please take this list to your next doctor s visit. Bring all medications you take, including over the counter medications, herbals and other supplements with you to your doctor s visit. Patients and families are reminded to discard old lists and to update any records with all medication providers or retail pharmacies. Education [employer] Shoulder Sprain A sprain is a stretching or tearing of the ligaments that hold a joint together. A sprain may take up to 8 weeks to fully heal, depending on how severe it is. Moderate to severe shoulder sprains are treated with a sling or shoulder immobilizer. Minor sprains can be treated without any special support. Home care The following guidelines will help you care for your injury at home: If a sling was given to you, leave it in place for the time advised by your healthcare provider. If you aren t sure how long to wear it, ask for advice. If the sling becomes loose, adjust it so that your forearm is level with the ground. Your shoulder should feel well supported. Put an ice pack on the injured area for 20 minutes every 1 to 2 hours the first day. You can make your own ice pack by putting ice cubes in a plastic bag. A bag of frozen peas or something similar works well too. Wrap the bag in a thin towel. Continue with ice packs 3 to 4 times a day for the next 2 to 3 days. Then use the pack as needed to ease pain and swelling. You may use acetaminophen or ibuprofen to control pain, unless another pain medicine was prescribed. If you have chronic liver or kidney disease, talk with your healthcare provider before using these medicines. Also talk with your provider if you ve had a stomach ulcer or gastrointestinal bleeding. Shoulder joints become stiff if left in a sling for too long. You should start range of motion exercises about 7 to 10 days after the injury. Talk with your provider to find out what type of exercises to do and how soon to start. Follow-up care Follow up with your healthcare provider, or as advised. Any X-rays you had today don t show any broken bones, breaks, or fractures. Sometimes fractures don t show up on the first X-ray. Bruises and sprains can sometimes hurt as much as a fracture. These injuries can take time to heal completely. If your symptoms don t improve or they get worse, talk with your provider. You may need a repeat X-ray or other treatments. When to seek medical advice Call your healthcare provider right away if any of these occur: Shoulder pain or swelling in your arm that gets worse Fingers become cold, blue, numb, or tingly Large amount of bruising of the shoulder or upper arm Fever or chills [id number] [employer]. [address] [place] [address], [place] [address]. All rights reserved. This information is not intended as a substitute for professional medical care. Always follow your healthcare professional's instructions. Established High Blood Pressure High blood pressure (hypertension) is a chronic disease. Often, healthcare providers don t know what causes it. But it can be caused by certain health conditions and medicines. If you have high blood pressure, you may not have any symptoms. If you do have symptoms, they may include headache, dizziness, changes in your vision, chest pain, and shortness of breath. But even without symptoms, high blood pressure that s not treated raises your risk for heart attack, heart failure, and stroke. High blood pressure is a serious health risk and shouldn t be ignored. Blood pressure measurements are given as 2 numbers. Systolic blood pressure is the upper number. This is the pressure when the heart contracts. Diastolic blood pressure is the lower number. This is the pressure when the heart relaxes between beats. You will see your blood pressure readings written together. For example, a person with a systolic pressure of 118 and a diastolic pressure of 78 will have 118/78 written in the medical record. Blood pressure is categorized as normal, elevated, or stage 1 or stage 2 high blood pressure: Normal blood pressure is systolic of less than 120 and diastolic of less than 80 (120/80) Elevated blood pressure is systolic of 120 to 129 and diastolic less than 80 Stage 1 high blood pressure is systolic is 130 to 139 or diastolic between 80 to 89 Stage 2 high blood pressure is when systolic is 140 or higher or the diastolic is 90 or higher Home care If you have high blood pressure, follow these home care guidelines to help lower your blood pressure. If you are taking medicines for high blood pressure, these methods may reduce or end your need for medicines in the future. Start a weight-loss program if you are overweight. Cut back on how much salt you get in your diet. Here s how to do this: oDon t eat foods that have a lot of salt. These include olives, pickles, smoked meats, and salted potato chips. oDon t add salt to your food at the table. oUse only small amounts of salt when cooking. Start an exercise program. Talk with your healthcare provider about the type of exercise program that would be best for you. It doesn't have to be hard. Even brisk walking for 20 minutes 3 times a week is a good form of exercise. Don t take medicines that stimulate the heart. This includes many eibc-dew-qdaufys cold and sinus decongestant pills and sprays, as well as diet pills. Check the warnings about high blood pressure on the label. Before buying any leff-uvy-htrpifa medicines or supplements, always ask the pharmacist about the product's potential interaction with your high blood pressure and your high blood pressure medicines. Stimulants such as amphetamine or cocaine could be deadly for someone with high blood pressure. Never take these. Limit how much caffeine you get in your diet. Switch to caffeine-free products. Stop smoking. If you are a long-time smoker, this can be hard. Talk to your healthcare provider about medicines and nicotine replacement options to help you. Also, enroll in a stop-smoking program to make it more likely that you will quit for good. Learn how to handle stress. This is an important part of any program to lower blood pressure. Learn about relaxation methods like meditation, yoga, or biofeedback. If your provider prescribed medicines, take them exactly as directed. Missing doses may cause your blood pressure get out of control. If you miss a dose or doses, check with your healthcare provider or pharmacist about what to do. Consider buying an automatic blood pressure machine to check your blood pressure at home. Ask your provider for a recommendation. You can get one of these at most pharmacies. The [place] [employer] recommends the following guidelines for home blood pressure monitoring: Don't smoke or drink coffee for 30 minutes before taking your blood pressure. Go to the bathroom before the test. Relax for 5 minutes before taking the measurement. Sit with your back supported (don't sit on a couch or soft chair); keep your feet on the floor uncrossed. Place your arm on a solid flat surface (like a table) with the upper part of the arm at heart level. Place the middle of the cuff directly above the bend of the elbow. Check the monitor's instruction manual for an illustration. Take multiple readings. When you measure, take 2 to 3 readings one minute apart and record all of the results. Take your blood pressure at the same time every day, or as your healthcare provider recommends. Record the date, time, and blood pressure reading. Take the record with you to your next medical appointment. If your blood pressure monitor has a built-in memory, simply take the monitor with you to your next appointment. Call your provider if you have several high readings. Don't be frightened by a single high blood pressure reading, but if you get several high readings, check in with your healthcare provider. Note: When blood pressure reaches a systolic (top number) of 180 or higher OR diastolic (bottom number) of 110 or higher, seek emergency medical treatment. Follow-up care You will need to see your healthcare provider regularly. This is to check your blood pressure and to make changes to your medicines. Make a follow-up appointment as directed. Bring the record of your home blood pressure readings to the appointment. When to seek medical advice Call your healthcare provider right away if any of these occur: Blood pressure reaches a systolic (upper number) of 180 or higher OR a diastolic (bottom number) of 110 or higher Chest pain or shortness of breath Severe headache Throbbing or rushing sound in the ears Nosebleed Sudden severe pain in your belly (abdomen) Extreme drowsiness, confusion, or fainting Dizziness or spinning sensation (vertigo) Weakness of an arm or leg or one side of the face You have problems speaking or seeing [id number] [employer]. [address] [place], [place] [address]. All rights reserved. This information is not intended as a substitute for professional medical care. Always follow your healthcare professional's instructions. Wrist Fracture, General You have a broken bone (fracture) in your wrist. This may be a small crack or chip in the bone. Or it may be a major break, with the broken parts pushed out of position. Wrist fractures are often treated with a splint or cast. They take about 4 to 6 weeks to heal. Severe injuries may need surgery. Home care Follow these guidelines when caring for yourself at home: Keep your arm elevated to reduce pain and swelling. When sitting or lying down keep your arm above the level of your heart. You can do this by placing your arm on a pillow that rests on your chest or on a pillow at your side. This is most important during the first 2 days (48 hours) after the injury. Put an ice pack on the injured area. Do this for 20 minutes every 1 to 2 hours the first day for pain relief. You can make an ice pack by wrapping a plastic bag of ice cubes in a thin towel. As the ice melts, be careful that the cast or splint doesn t get wet. Continue using the ice pack 3 to 4 times a day for the next 2 days. Then use the ice pack as needed to ease pain and swelling. Keep the cast or splint completely dry at all times. Bathe with your cast or splint out of the water. Protect it with a large plastic bag, rubber-banded or taped at the top end. If a fiberglass cast or splint gets wet, you can dry it with a electric wheelchair repairer on a cool setting. You may use acetaminophen or ibuprofen to control pain, unless another pain medicine was prescribed. If you have chronic liver or kidney disease, talk with your healthcare provider before using these medicines. Also talk with your provider if you ve had a stomach ulcer or gastrointestinal bleeding. Don t put creams, lotions, or objects under the cast. Follow-up care Follow up with your healthcare provider as advised. This is to make sure the bone is healing the way it should. If a splint was put on, it may be changed to a cast during your follow-up visit. A cast may need to be changed at 2 to 3 weeks, as the swelling goes down. If X-rays were taken, a radiologist may look at them. You will be told of any new findings that may affect your care. When to seek medical advice Call your healthcare provider right away if any of these occur: The plaster cast or splint becomes wet or soft The cast or splint cracks Bad odor from the cast or wound fluid stains the cast The fiberglass cast or splint stays wet for more than 24 hours Tightness or pain under the cast or splint gets worse Fingers become swollen, cold, blue, numb, or tingly You can t move your fingers Skin around cast becomes red, swollen, or irritated 8708-2968 [employer]. [address] [place] [address]. All rights reserved. This information is not intended as a substitute for professional medical care. Always follow your healthcare professional's instructions. Mechanical Fall You have had a fall today. It appears that the cause is what is called mechanical. That means that you slipped, tripped, or lost your balance. If your fall had been because of fainting or a seizure, you might need other tests. It is normal to feel sore and tight in your muscles and back the next day, and not just the muscles you injured at first. Remember, all the parts of your body are connected, so while initially one area hurts, the next day another may hurt. Also, when you injure yourself, it causes inflammation, which then causes the muscles to tighten up and hurt more. After the initial worsening, it should gradually improve over the next few days. Do report more severe pain. Even without a definite head injury, you can still get a concussion from your head suddenly jerking forward, backward, or sideways when falling. Concussions and even bleeding can still happen, especially if you have had a recent injury or take blood thinner medicine. It is not unusual to have a mild headache and feel tired and even nauseous or dizzy. Home care Rest today and go back to your normal activities when you are feeling back to normal. If you were injured during the fall, follow the advice from your healthcare provider regarding care of your injury. At first, do not try to stretch out the sore spots. If there is a strain, stretching may make it worse. Massage may help relax the muscles without stretching them. You can use an ice pack or cold compress on and off to the sore spots 10 to 20 minutes at a time, as often as you feel comfortable. This may help reduce the inflammation, swelling and pain. If you have any scrapes or abrasions, they usually heal within 10 days. It is important to keep the abrasions clean while they initially start to heal. However, an infection may happen even with proper care, so watch for early signs of infection (such as warmth, redness, or swelling). Medicines Talk to your healthcare provider before taking new medicines, especially if you have other medical problems or are taking other medicines. If you need anything for pain, you can take acetaminophen or ibuprofen, unless you were given a different pain medicine to use. Talk with your healthcare provider before using these medicines if you have chronic liver or kidney disease, or ever had a stomach ulcer or gastrointestinal bleeding, or are taking blood thinner medicines. Be careful if you are given prescription pain medicines, narcotics, or medicine for muscle spasm. They can make you sleepy and dizzy, and can affect your coordination, reflexes, and judgment. Do not drive or do work where you can injure yourself when taking them. Fall prevention Fix, remove, or replace anything that caused your fall. Make your home safe by keeping walkways clear of objects you may trip over. Use nonslip pads under rugs. Don't use small area rugs or throw rugs. Don't walk in poorly lit areas. Don't stand on chairs or wobbly ladders. Use caution when reaching overhead or looking upward. This position can cause a loss of balance. Be sure your shoes fit properly, have nonslip bottoms and are in good condition. Be cautious when going up and down curbs, and walking on uneven sidewalks. If your balance is poor, consider using a cane or walker. Stay as active as you can. Balance, flexibility, strength, and endurance all come from exercise. They all play a role in preventing falls. If you have pets, know where they are before you stand up or walk so you don't trip over them. Limit alcohol intake. Alcohol can cause balance problems and increase the risk of falls. Use night lights. Have your eyes tested to be sure you are seeing well, even if you already wear glasses. Follow-up Follow up with your healthcare provider, or as advised. If X-rays or CT scans were done, you will be notified if there is a change in the reading, especially if it affects treatment. Call 911 Call 911 if any of these happen: Trouble breathing Confused or difficulty arousing Fainting or loss of consciousness Rapid or very slow heart rate Seizure Difficulty with speech or vision, weakness of an arm or leg Difficulty walking or talking, loss of balance, numbness or weakness in one side of your body, or facial droop When to seek medical advice Call your healthcare provider right away if any of these happen: Repeated mechanical falls, or unexplained falls Dizziness Severe headache Blood in vomit, stools (black or red color) [id number] [employer]. [address] [place] [address]. All rights reserved. This information is not intended as a substitute for professional medical care. Always follow your healthcare professional's instructions. Additional Information VACCINATE! IT SAVES LIVES! Members of the community who have not yet received the COVID-19 vaccine and would like to receive it can visit one of [facility] vaccine clinics. There are many vaccine clinic locations within the [facility]. For locations and available times, please visit www.gettheshot.coronavirus.[place].gov/ . It is important to note that some COVID mobile vaccine clinics are held outdoors and may be canceled in rainy or stormy conditions. To learn more about pediatric vaccinations (ages 5-11), we invite you to visit the [facility] webpage. [email or web address]/pages /5648-Hsczw-Ivkoxzmszfc-Frequently-A sked-Questions.html To learn more about the COVID-19 vaccine, we invite you to visit the CDC website for a list of frequently asked questions. https://www.cdc.gov/coronavirus/2019 -ncov/vaccines/faq.html [facility] Patient Portal Access Instructions: Stay connected with your healthcare team and access your personal medical information anytime with the [facility] Patient Portal. If you would like a full copy of your medical records please contact the [facility] Medical Records Department Wednesday through Wednesday between 8a.m. and 4:30p.m. Please follow the directions below to access the portal: 1.Access the email account you provided upon registration to the [facility].2.Look for an invitation email from [facility].3.Open the email and access the invitation link: Accept Invitation to [facility]4.Fill in the required shah to create your account. Sign into [email or web address] with your username and password that you [...] you will allow to register on the [facility] Patient Portal for access to your information. You can also access the [facility] Patient Portal on the [employer] denis. Simply click on Health Records under Health Data and then click on the [employer] logo. HOW TO SAFELY DISPOSE OF PRESCRIPTION [...] Call your local pharmacy or go to http://[email or web address] to find one close to you.3.Make use of household items: Use cat litter or old coffee grounds to dispose medications if other options are not available. Mix your drugs with these household products, seal them in an airtight container and throw it into the garbage. Call [facility]: [phone] to be sure your drugs can be [...] a CHART COPY Signatures Patient Education Materials Shoulder Sprain Hypertension, Established Fracture, Wrist, General Fall, Mechanical Medication Leaflets My discharge plan and instructions have been reviewed and explained to me and IBALA CAROLYN M understand my current condition and have read and understand these discharge instructions. I have received a written copy of the plan/instructions. If I have questions, I am aware that I should contact my doctor. Patient/Shuttle Final Inspector Signature: ___ Date/Time: Relationship to Patient: _ Witness Name/Signature: Date/Time: [facility] 11-09-2024 Note Exam Date Time Procedure Performing Provider Status 11/09/24 11:16 AM XR Hand and Wrist 6 Views Left ELSA MYERS MD; Auth (Verified) [id number] ORIGINAL EXAMINATION: 6 XRAY VIEWS OF THE LEFT HAND 11/09/2024 11:17 am COMPARISON: None. HISTORY: ORDERING SYSTEM PROVIDED HISTORY: Reason for Exam: lt wrist pain s/p fall today pain FINDINGS: Bone demineralization. There is an acute comminuted impacted intra-articular distal radial fracture and ulnar styloid fracture. There is mild dorsal tilting of the radius. Soft tissue swelling surrounding the wrist. Multifocal degenerative changes of the hand and carpus most pronounced at the 1st CMC joint. There is a well-defined thin walled lucent 4 mm lesion within the 1st proximal phalanx that is most favored to reflect a small enchondroma. IMPRESSION: Acute comminuted impacted intra-articular dorsally angulated distal radial fracture and ulnar styloid fracture. Surrounding soft tissue swelling. Interpreted by: Elsa Myers Preliminary Report By: Elsa Myers Electronically signed By Elsa Myers Dictated Date: 11/09/2024 11:26:01 AM Prelim Date: 11/09/2024 11:28:44 AM Sign Date: 11/09/2024 11:28:44 AM Ordering Provider: RAMON COX [facility]06-05-2025 Note* Exam Date Time Procedure Performing Provider Status 11/09/24 11:16 AM XR Elbow Minimum 3 Views Left ELSA MYERS MD; Auth (Verified) [id number] ORIGINAL EXAMINATION: 3 XRAY VIEWS OF THE LEFT ELBOW 11/09/2024 11:16 am COMPARISON: None. HISTORY: ORDERING SYSTEM PROVIDED HISTORY: Reason for Exam: lt elbow pain s/p fall today pain FINDINGS: Bone demineralization. Enthesopathy at the lateral epicondyle. No acute fracture or dislocation. No suspicious osseous lesions. Well corticated 3 mm ossicle at the lateral joint space which may be related to an intra-articular body. No joint effusion. Lateral radiograph is rotated and suboptimal in positioning with mild motion. IMPRESSION: No definite fracture or dislocation or elbow joint effusion. Lateral radiograph is suboptimal due to rotation and slight motion. If further concern persists for acute fracture recommend repeat lateral radiograph. Interpreted by: Elsa Myers Preliminary Report By: Elsa Myers Electronically signed By Elsa Myers Dictated Date: 11/09/2024 11:19:06 AM Prelim Date: 11/09/2024 12:04:02 PM Sign Date: 11/09/2024 12:04:02 PM Ordering Provider: [facility]06-05-2025 Note* Exam Date Time Procedure Performing Provider Status 11/09/24 11:16 AM XR Shoulder Minimum 2 Views Left ELSA ROBERTO MD; Auth (Verified) [id number] ORIGINAL EXAMINATION: 3 XRAY VIEWS OF THE LEFT SHOULDER 11/09/2024 11:16 am COMPARISON: 02/15/2018 HISTORY: ORDERING SYSTEM PROVIDED HISTORY: Reason for Exam: lt shoulder pain s/p fall today pain FINDINGS: Bone demineralization. High-riding humeral head with associated secondary degenerative changes across the acromial humeral joint space. No acute fracture or suspicious osseous lesion. IMPRESSION: Findings most consistent with chronic rotator cuff tearing with secondary degenerative change. No acute fracture. Interpreted by: Elsa Myers Preliminary Report By: Elsa Myers Electronically signed By Elsa Myers Dictated Date: 11/09/2024 11:24:33 AM Prelim Date: 11/09/2024 11:25:51 AM Sign Date: 11/09/2024 11:25:51 AM Ordering Provider: [facility]06-02-2025 Radiology Diagnostic study note [facility] Imaging Services [address] [place], [place] [address] Shoulder min 2 Views MR#: [id number] Acct: [id number] Name: BOB MCKENNA Rep #: [id number] : 1940 F 84 From: Sylvia Rubio MD PCP: Dr. Lizzette Apple, DO Status: REG CLI Study:Shoulder min 2 Views Date of Exam: 11/06/24 Exam# [id number] Ordering Dr: Katie Suarez PROCEDURE: SHOULDER MIN 2 VIEWS 11/06/2024 REASON FOR EXAM: RIGHT SHOULDER PAIN TECHNIQUE: Four views of the right shoulder COMPARISON: None RAD/Shoulder min 2 Views IMPRESSION: [id number] degenerative changes of the right shoulder. No acute fracture or dislocations. No acute soft tissue abnormalities. Reading Location: [place] CC: Katie Suarez; Dr. Lizzette Apple DO ~ Closer On: Signed [facility]04-14-2025 Radiology Diagnostic study note [facility] Imaging Services [address] [place], [place] [address] Abdomen Single View MR#: [id number] Acct: [id number] Name: BOB MCKENNA Rep #: [id number] : 1940 F 84 From: Godwin Cha DO PCP: Dr. Lizzette Apple DO Status: REG CLI Study:Abdomen Single View Date of Exam: 09/18/24 Exam# [id number] Ordering Dr: Clarissa Aranda PROCEDURE: ABDOMEN SINGLE VIEW 09/18/2024 REASON FOR EXAM: DAY 3 SITZ MARKER TECHNIQUE: Single view abdomen. COMPARISON: CT abdomen and pelvis dated 08/11/2024 FINDINGS: Bowel gas: Bowel gas pattern is normal. No evidence of bowel obstruction. Calcifications: Small pelvic calcifications are identified consistent with phleboliths. Atherosclerotic vascular calcifications identified. Bones: Diffuse osteopenia of the lower thorax is noted as well as the lumbar spine and bony pelvis.Degenerative changes of both hips are noted. There is a dextroscoliosis of the lower thoracic spine and upper lumbar spine and alevoscoliosis of the lower lumbar spine. There has been previous vertebroplasty at the L2 and L3 levels. Other: A 2 mm x 4 mm radiopaque Sitz marker is projected over the bowel in the location of the leftSI joint. RAD/Abdomen Single View IMPRESSION: The sitz marker is projected over the bowel in the location of the left SI joint. Reading Location: [place] CC: CALIBRATION SPECIALIST-C Clarissa Aranda; Dr. Lizzette Apple DO ~ Closer On: Signed [facility]04-10-2025 Evaluation note* Diagnosis Onset Date Resolution Status Admit Date Constipation acute September 14, 2024 9:31am [facility] Work Phone: 1(905) 218-887504-07-2025 Radiology Diagnostic study note [facility] Imaging Services [address] [place] [id number] Fluor Guidance for Spine Inj MR#: [id number] Acct: [id number] Name: BOB MCKENNA Rep #: [id number] : 1940 F 84 From: Sotero Mandujano DO PCP: Dr. Lizzette Apple, Status: REG SDC Study:Fluor Guidance for Spine Inj Date of Ex am: 09/11/24 Exam# [id number] Ordering Dr: Brien Ocampo MD PROCEDURE: FLUOR GUIDANCE FOR SPINE INJ 09/11/2024 REASON FOR EXAM: BLOCK,CAUDAL TECHNIQUE: 2 fluoroscopic images were submitted. Fluoroscopy time was 7.7 seconds. Peak skin radiation dose was 2.1 mGy. COMPARISON: None FINDINGS: See impression RAD/Fluor Guidance for Spine Inj IMPRESSION: Fluoroscopic guidance provided during sacral injection. See operative report for further details. Reading Location: [facility] CC: Dr. Brien Ocampo MD; Dr. Lizzette Apple DO ~ Closer On: Signed [facility]04-07-[address] [facility] Medical Records Department [address] [place] [address] Anesthesia Postop Eval II 09/11/24 1012 MR#: [id number] Acct: [id number] Name: BOB MCKENNA Rep #:[id number] : 1940 84 From: Machelle Wang PCP: Dr. Lizzette Apple, Status:REG DCC Y Race: C Location: [place] [address] Anesthesia Postop Eval I Sum Postop Eval Completion status Anesthesia document: Postop Eval 1 completed: Yes Anesthesia Postop Eval I Summary Anesthesia Postop Eval I Summary: Anesthesia Postop Eval I: Assessment Summary Airway patent Yes 09/11/24 09:46 ANALYSIS EVALUATOR.CSIR Spontaneous unlabored Yes 09/11/24 09:46 ANALYSIS EVALUATOR.CSIR respirations Mental status nausea No 09/11/24 09:46 ANALYSIS EVALUATOR.CSIR Vomiting No 09/11/24 09:46 ANALYSIS EVALUATOR.CSIR Anesthesia Postop Eval I: Fluid Summary Crystalloid volume administer 10 09/11/24 09:46 ANALYSIS EVALUATOR.CSIR (ml) Colloids volume administered ( ml) Blood Product volume administered (ml) Total IV fluid infused 10 09/11/24 09:46 ANALYSIS EVALUATOR.CSIR Anesthesia Postop Eval I: Summary Notes Anesthesia Complication No 09/11/24 09:46 ANALYSIS EVALUATOR.CSIR Anesthesia Complication Comment: Post-operative progress note Anesthesia: Postop Eval II Evaluation Mental status: Awake Pain Level: 2 nausea: No Vomiting: No 09/11/24 1012 a> Date _ Machelle dee Toth Signature: Date CC: ~ Signed [facility]04-07-2025 Procedure note [facility] Medical Records Department [address] [place] [address] Operative Report 09/11/24 0949 MR#: [id number] Acct: [id number] Name: OBB MCKENNA Rep #:[id number] : 1940 84 From: Brien Ocampo MD PCP: Dr. 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 BLOOD LOSS: Minimal. COMPLICATIONS: None. DESCRIPTION OF PROCEDURE: History and physical of today was reviewed. Risks and benefits of the procedure were explained. The patient understood and agreedto proceed. Informed consent was obtained. IV inserted per routine protocol. The patient was taken to the operating room and placed in the proneposition with a pillow positioned underneath the abdomen. The lower back and tailbone area was prepped and draped in a sterile fashion using iodine x3. Under fluoroscopy guidance on a lateral view, the caudal space was identified. The skin and subcutaneous tissue was anesthetized with approximately3 mL of 1% lidocaine using a 25-gauge regular needle. Under direct visualization with fluoroscopy, u sing a 22-gauge 3-1/2-inch spinal needle, the needle was advanced via the skin through the sacral hiatus. The tip of the needle was passed through the sacrococcygeal ligament and advanced to approximately S4 area. After negative aspiration of blood or CSF, a total of 3 mL of contrast was injected to confirm correct placement of the needle as well as cephalad spread. The spread was followed to approximately L5 area. After confirmation on AP as well as lateral view and repeated negative aspiration, a total of 15 mL of preservative-free 0.125% Marcaine with 80 mg of Depo-Medrol was injected easily. The needle was then removed intact. The patient experienced no sign or symptoms of intrathecal or intravascular injection. The patient experienced no paresthesia. The procedure was completed without any apparent difficulty or anycomplications. The patient appeared to tolerate it well. ASSESSMENT AND PLAN: This is an-84 year-old female with lumbosacral radiculopathy, lumbosacral degenerative disc disease, lumbosacral spinal stenosis status post diagnostic/therapeutic caudal epidural steroid injection under fluoroscopic guidance, patient will continue her current medications, patient will follow-up inapproximately 2 weeks for reevaluation. Surgical Findings: 1 Complications Complications: No Admit VTE Documentation VTE Present on Admission: No 09/11/24950 Cosigner Signature (if applicable): CC: Dr. Brien Ocampo MD; Dr. Lizzette Apple, DO~ Signed [facility]04-07-[address] [facility] Medical Records Department [address] [place] [address] Anesthesia Postop Eval I 09/11/2446 MR#: [id number] Acct: [id number] Name: BOB MCKENNA Rep #:[id number] : 1940 84 From: Machelle Wang PCP: Dr. Lizzette Apple, DO Status:REG [facility] Race: C Location: [place] [address] Anesthesia: Postop Eval I Current Vital Signs Temperature: 97.3 F Pulse Rate: 69 Blood Pressure: 110/78 Respiratory Rate: 20 Pulse Ox: 100 Assessment Airway patent: Yes Spontaneous unlabored respirations: Yes nausea: No Vomiting: No Anesthesia Complication: No Fluid Hydration Crystalloid volume administer (ml): 10 Total IV fluid infused: 10 Progress Note Anesthesia document: Postop Eval 1 completed: Yes 09/11/2449 a> Date _ Machelle Toth Signature: Date CC: ~ Signed [facility]04-07-[address] [facility] Medical Records Department [address] [place] [address] Pre-Anesthesia Evaluation 09/11/2444 MR#: [id number] Acct: [id number] Name: BOB MCKENNA Rep #:[id number] : 1940 84 From: Jim Jimenez MD PCP: Dr. Lizzette Apple, DO Status:REG SDC Y Race: C Location: [place] [address]- ASA Classification* ASA Classification ASA Classification: 2 Assessment & Plan Anesthesia* Anesthesia Assessment Anesthesia Assessment: Discussed sedation and/or anesthesia options, risks, benefits, and alternatives with patient/parents/legal guardian/POA. Questions invited. The patient/parents/legal guardian/POA seems to understand and agrees to proceedwith anesthesia plan. Reviewed the physical assessment, medical history, allergy history and patient home medications list prior to surgery/procedure/anesthetic and documented any changes. Performed airway and anesthesia risk assessments. Anesthesia Type Anesthesia Type: MAC Anesthesia Focused Assessment* Airway Assessment Mouth opens: >3 cm Mallampati Score: II Focused Labs Anesthesia Preop lab: CBC WBC 5.7 K/mm3 (4.4-11.0) 09/04/24 13:24 09/04/24 RBC 4.24 M/mm3 (4.2-5.4) 09/04/24 13:24 09/04/24 Hgb 12.5 g/dL (12.0-15.0) 09/04/24 13:24 09/04/24 Hct 37.1 % (37-47) 09/04/24 13:24 09/04/24 Plt Count 287 K/mm3 (150-450) 09/04/24 13:24 09/04/24 CHEMISTRY Potassium 4.2 mmol/L (3.3-5.1) 09/04/24 13:24 09/04/24 Sodium 131 mmol/L (133-145) L 09/04/24 13:24 09/04/24 Magnesium 2.2 mg/dL (1.6-2.6) 04/03/24 05:15 04/03/24 Phosphorus 3.5 mg/dL (2.5-4.9) 04/03/24 05:15 04/03/24 BUN 8 mg/dL (4-19) 09/04/24 13:24 09/04/24 Creatinine 0.51 mg/dL (0.70-1.20) L 09/04/24 13:24 Glucose 125 mg/dL (70-99) H 09/04/24 13:24 09/04/24 TSH 3.100 uIU/mL (0.358-3.740) 04/02/24 02:27 03/08 12/28 COAG Pre-Assessment Diagnosis/Proposed Procedure Planned Operative Procedure(s): Caudal SHAY Anesthesia History Anesthesia History - healthcare administrative assistant: Anesthesia History - healthcare administrative assistant Hx Hospitalization No 03/22/24 11:26 Any Problems With Anesthesia Yes: 1988 WITH HYSTERECTOMY 03/22/24 11:26 VERY SLOW TO AWAKEN Cholinesterase deficiency No 03/22/24 11:26 You/Your Family Experience No 03/22/24 11:26 fever (hyperthermia) with Relationship Recent Exposure to Contagious No 06/12/24 08:30 Disease Does patient have nerve No 03/22/24 11:26 stimulator Patient instructed to have device shut off --Does patient have Pacemaker or ICD? When Was Last Pacemaker Check QUESTION #4 FULL TEXT: You/Your Family Experience fever (hyperthermia) with Anesthesia Last Oral Intake Last Oral intake: Last Oral Intake NPO since Meds taken in AM with sips of water? Meds patient instructed to take am of surgery PONV PONV - healthcare administrative assistant: PONV - healthcare administrative assistant Female HX of Motion Sickness HX of N/V After Surgery Non-Smoker Duration of Surgery greater than 60 minutes Number of Risk Factors PONV Score Height & Weight Height & Weight: Anesthesia: Height & Weight Height 5 ft 1 in 09/04/24 14:16 Respiratory Assessment Respiratory Assessment - healthcare administrative assistant: Respiratory Tract Infection Hx - healthcare administrative assistant Hx Respiratory Tract Infection No 03/22/24 11:26 STOP Sleep Apnea STOP Sleep Apnea - healthcare administrative assistant: STOP Sleep Apnea - healthcare administrative assistant Hx Hypertension Yes: CONTROLLED WITH MED 04/02/24 09:42 Hx Sleep Apnea No 06/12/24 10:20 CPAP BIPAP Do you snore loudly (louder than talking or can be heard Do you often feel tired/ fatigued/ sleepy during daytime? Has anyone observed you stop breathing during sleep? STOP Results QUESTION #5 FULL TEXT : Do you snore loudly (louder than talking or can be heard through closeddoors)? 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 Specify any problems Hx of Preganancy in last 3 Months Nurse Filling Out Transfusion & Questions: Date: Time: Patient unable to answer at this time (ie. confused, unrespo /Reproduction History /Reproductive History - healthcare administrative assistant: /Reproductive Hx- healthcare administrative assistant Hx Now Gestational Age (in weeks): EDC: Hx Hx Para Hx Section SAB No 03/22/24 11:26 PFS Medical History Metabolic encephalopathy Adverse drug reaction Dehydration Hypokalemia Acute hyponatremia Retroperitoneal lymphadenopathy Abdominal pain Depression Back pain Constipation Wears hearing aid Wears glasses Cancer Thyroid disease Walker as ambulation aid High cholesterol Non-smoker Leg cramps History of echocardiogram History of stress test Cardiology follow-up encounter Cholinesterase deficiency Encounter for education Anemia CLL (chronic lymphocytic leukemia) Hypothyroidism Vertigo Varicose veins of legs Supraclavicular mass Supraclavicular lymphadenopathy Skin lesion of face Skin lesion of neck Stress incontinence Psoriasis Osteoporosis Mitral valve prolapse Low back pain with right-sided sciatica Hyperlipidemia High blood pressure Hematuria Home Medications ?Medication ?Instructions ?Recorded ?Last Taken ?Type ascorbic acid (vitamin C) 100 mg 100 mg PO DAILY 08/1410/20/23 History tablet calcium carbonate 600 mg PO BID 08/14/2210/19 History cholecalciferol (vitamin D3) 10 10 mcg PO DAILY 10/20/23 History mcg (400 unit) capsule lutein 20 mg capsule 20 mg PO DAILY 08/14/2210/05 History magnesium carbonate 1 cap PO DAILY 08/18/2210/05 History mecobalamin (vitamin B12) 1,000 1,000 mcg PO Q OTHER D AY 03/01/23 10/20/23 History mcg lozenges levothyroxine 88 mcg capsule 88 mcg PO DAILY 06/01/23 10/20/23 History Disability Placard #1 ea 09/07/23 Unknown Rx disability placard #1 ea 01/03/24 Unknown Rx losartan 50 mg tablet 50 mg PO QHS 01/03/24 History gabapentin 100 mg capsule 100 mg PO QDAY 04/28/24 Unkn own History ondansetron 4 mg disintegrating 4 mg PO Q8H PRN PRN Na usea #10 tabs 08/11/24 Unknown Rx tablet linaclotide 145 mcg capsule 145 mcg PO QAM #30 caps Unknown Rx (Linzess) Allergy/AdvReac Type Severity Reaction Status Date / Time No Known Allergies Allergy Verified 09/04/24 14:13 Family History Brother CAD (coronary artery disease) Cancer Hyperlipemia Mother Cancer Leukemia Sister Cancer Sarcoma Surgical History Hx of kyphoplasty S/P abdominal hysterectomy H/O umbilical hernia repair History of tonsillectomy S/P appendectomy Social History household members: none housing: house Smoking Status: Never smoker alcohol intake: never substance use type: does not use Review of Systems (Anesthesia) ROS Narrative System reviewed and no additional complaints, except as documented. 09/11/24 0845 > Date _ Jim Jimenez MD Cosigner Signature: Date CC: ~ Signed [facility]03-23-2025 Telephone encounter Note* Telephone Encounter - Silvia Moralez RN - 08/27/2024 7:39 PM EDT S: Patient spoke with [facility] nurse via Nurse Advice Line regarding questions. B: Onset of symptoms/concern Patient would like to know what kind of doctor takes care of patient'swith thyroid issues and what doctor is covered by [facility]. A: N/A R: Patient advised to contact customer service tomorrow between 8:30 am and 5:30pm to discuss coverage. Customer service number relayed to patient, she verbalized understanding. No further needs at this time. Reason for Disposition General information question, no triage required and triager able to answer question Protocols used: Information Only Call - No [id number] [id number] Miscellaneous Notes* Telephone Encounter - Silvia Moralez RN - 08/27/2024 7:39 PM EDT S: Patient spoke with [facility] nurse via Nurse Advice Line regarding questions. B: Onset of symptoms/concern Patient would like to know what kind of doctor takes care of patient'swith thyroid issues and what doctor is covered by [facility]. A: N/A R: Patient advised to contact customer service tomorrow between 8:30 am and 5:30pm to discuss coverage. Customer service number relayed to patient, she verbalized understanding. No further needs at this time. Reason for Disposition General information question, no triage required and triager able to answer question Protocols used: Information Only Call - No [id number] documented in this encounterSMercy [id number] Telephone encounter Note* Telephone Encounter - Melly Yates RN - 08/20/2024 7:17 PM EDT S: Patient daughter spoke with [facility] nurse via [facility] nurse advice line regarding abdominal pain B: Onset of symptoms/concern ongoing A: States chronic abdominal pain the encompasses entire abdomen. States pain is currently 5/10. States pain varies in intensity but is constant. States pain is constant. States last BM this AM post enema. Denies nausea, denies vomiting, denies abdominal bloating or swelling, denies bloody, black tarry stools, denies chest pain. States they would like to get patient admitted somewhere like extended care. States they have given patient 2 enemas to induce bowel movements since when patient had bowel movement on their own. R: Advised that patient should be evaluated this evening for abdominal pain. Advised given day and time they would need to go to ED. Patient daughter understands care advice and is unsure if they will go to ED or wait to call provider in the morning. No further needs at this time. Patient instructed to call back with new or worsening symptoms. Reason for Disposition [1] MILD-MODERATE pain AND [2] constant AND [3] present > 2 hours Protocols used: Abdominal Pain - ADULT-AH [facility] [id number] Miscellaneous Notes* Telephone Encounter - Melly Yates RN - 08/20/2024 7:17 PM EDT S: Patient daughter spoke with [facility] nurse via [facility] nurse advice line regarding abdominal pain B: Onset of symptoms/concern ongoing A: States chronic abdominal pain the encompasses entire abdomen. States pain is currently 5/10. States pain varies in intensity but is constant. States pain is constant. States last BM this AM post enema. Denies nausea, denies vomiting, denies abdominal bloating or swelling, denies bloody, black tarry stools, denies chest pain. States they would like to get patient admitted somewhere like extended care. States they have given patient 2 enemas to induce bowel movements since when patient had bowel movement on their own. R: Advised that patient should be evaluated this evening for abdominal pain. Advised given day and time they would need to go to ED. Patient daughter understands care advice and is unsure if they will go to ED or wait to call provider in the morning. No further needs at this time. Patient instructed to call back with new or worsening symptoms. Reason for Disposition [1] MILD-MODERATE pain AND [2] constant AND [3] present > 2 hours Protocols used: Abdominal Pain - ADULT-AH documented in this [facility]03-11-2025 Evaluation note* Diagnosis Onset Date Resolution Status Admit Date Abdominal pain acute August 9:14am Bloating acute August 15 9:14am Constipation acute August 15, 2024 9:14am Dysphagia acute August 15 9:14am Anemia chronic September 04 1:18pm CLL (chronic lymphocytic leukemia) chronic September 04, 2024 1:18pm Constipation acute September 14, 2024 9:31am [facility] Work Phone: 1(720) 781-251703-07-2025 Radiology Diagnostic study note [facility] Imaging Services [address] [place] [address] Abdomen/Pelvis W IV Cont ONLY MR#: [id number] Acct: [id number] Name: BOB MCKENNA Rep #: [id number] : 1940 F 84 From: Deisi Wyman MD PCP: Dr. Lizzette Apple, Status: REG ER Study:Abdomen/Pelvis W IV Cont ONLY Date of E xam: 08/11/24 Exam# [id number] Ordering Dr: Triston Arndt DO PROCEDURE: ABDOMEN/PELVIS W IV CONT ONLY REASON FOR EXAM: Abd pain TECHNIQUE: CT abdomen and pelvis was performed with IV contrast. Multiplanar reformats weregenerated. IV CONTRAST: 96 mL Isovue-300 COMPARISON: 04/01/2024 FINDINGS: Lung bases: Mild atelectasis/scarring. Cardiomegaly. Mitral annular calcification. Coronary atherosclerosis and/or stents. Liver: Unremarkable. Spleen: Tiny hypodensity superiorly too small to characterize, probably present on 08/26/2022 suggesting a benign etiology. Gallbladder: Unremarkable. Pancreas: Unremarkable. Adrenals: Unremarkable. Kidneys: Tiny hypodensity at the left upper pole too small to characterize, likely cyst, similar. Difficult to trace the course of the ureters. No hydronephrosis or definite ureteral calculus. Grossly similar presumed pelvic phleboliths in the absence of hydronephrosis/hydroureter. Bowel: Unremarkable. Appendix reportedly surgically absent. Lymph nodes: Unremarkable. Vasculature: Atherosclerosis.. Peritoneum: Unremarkable. Bladder: Underdistended and suboptimally evaluated, grossly unremarkable. Reproductive Organs: Hysterectomy. Body Wall: Unremarkable. Bones: Demineralization. Multilevel spondylosis. Similar multilevel compression deformities and changes of kyphoplasty/vertebroplasty at L2-L3 thoracic and upper lumbar dextroscoliosis and lower lumbar levoscoliosis. CT/Abdomen/Pelvis W IV Cont ONLY IMPRESSION: 1. No acute findings. 2. Additional description as above. Reading Location: [id number] CC: Dr. Flower Arndt, DO; Dr. Lizzette Apple, DO ~ Closer On: Signed [facility]12-23-2024 Evaluation note* Diagnosis Onset Date Resolution Status Admit Date Anemia chronic May 29, 2024 12:47pm CLL (chronic lymphocytic leukemia) chronic May 29, 024 12:47pm Abdominal pain acute August 9:14am Bloating acute August 15 9:14am Constipation acute August 15, 2024 9:14am Dysphagia acute August 15 9:14am Anemia chronic September 04 1:18pm CLL (chronic lymphocytic leukemia) chronic September 04, 2024 1:18pm [facility] Work Phone: 1(198) 869-531512-23-2024 Evaluation note* Diagnosis Onset Date Resolution Status Admit Date Anemia chronic May 29, 2024 12:47pm CLL (chronic lymphocytic leukemia) chronic May 29 024 12:47pm Abdominal pain acute August 9:14am Bloating acute August 15 9:14am Constipation acute August 15, 2024 9:14am Dysphagia acute August 15 9:14am Anemia chronic September 04 1:18pm CLL (chronic lymphocytic leukemia) chronic September 04, 2024 1:18pm Constipation acute September 14, 2024 9:31am [facility] Work Phone: 1(192) 211-756911-22-2024 Evaluation note* Diagnosis Onset Date Resolution Status Admit Date Cervical radiculopathy acute No vem2023 9:35am Degenerative disc disease, cervical acute April 28, 2 024 9:35am Anemia chronic May 29, 2024 12:47pm CLL (chronic lymphocytic leukemia) chronic May 29, 024 12:47pm [facility] Work Phone: 1(552) 883-524510-28-2024 [facility] Medical Records Department [address] [place] [address] Discharge Summary 04/03/24 1140 MR#: [id number] Acct: [id number] Name: BOB MCKENNA Rep #: [id number] : 1940 84 From: Victoriano Cannon DO PCP: Dr. Lizzette Apple DO Status:DIS IN Location: [place] [address] Providers Date of Admission: 04/01/24 Date of Discharge: 04/03/24 Primary Care Physician: Dr. Lizzette Apple DO Reason For Visit: ACUTE HYPONATREMIA, HYPOKALEMIA, DEHYDRATION Diagnosis Discharge Diagnosis (1) Acute hyponatremia: Status: Acute Code(s): E87.1 - Hypo-osmolality and hyponatremia (2) Hypokalemia: Status: Acute Code(s): E87.6 - Hypokalemia (3) Metabolic encephalopathy: Status: Acute Code(s): G93.41 - Metabolic encephalopathy Plan 1. Hyponatremia-secondary to nausea and vomiting #2 hypokalemia-secondary to nausea and vomiting #3 metabolic encephalopathy secondary to dehydration from nausea and vomiting #4 essential hypertension #5 hypothyroidism #6 hyperlipidemia #7 chronic lymphocytic leukemia Medications at Discharge Home Medications ascorbic acid (vitamin C) 100 mg tablet 100 mg PO DAILY 08/14/22 calcium carbonate 600 mg PO BID 08/14/22 cholecalciferol (vitamin D3) 10 mcg (400 unit) capsule 10 mcg PO DAILY 08/14/22 lutein 20 mg capsule 20 mg PO DAILY 08/14/22 magnesium carbonate 1 cap PO DAILY 08/18/22 mecobalamin (vitamin B12) 1,000 mcg lozenges 1,000 mcg PO Q OTHER DAY 03/01/23 levothyroxine 88 mcg capsule 88 mcg PO DAILY 06/01/23 Disability Placard #1 ea 09/07/23 zanubrutinib 80 mg capsule (Brukinsa) 320 mg PO BID 10/18/23 disability placard #1 ea 01/03/24 losartan 50 mg tablet 50 mg PO QHS 01/03/24 hydrocodone-acetaminophen 5-325mg 5mg-325mg 1 tab PO Q6H PRN PRN Pain 3 days #10 TABLETS 03/27/24 lactulose 20 gram/30 mL oral solution 20 g (30 mL) PO BID #1,500 mL 04/03/24 ondansetron HCl 4 mg tablet 4 mg PO Q6H PRN nausea and vomiting #30 tabs 04/03/24 Hospital Course Operations None Procedures None Summary of Care Provided Minutes Spent on Discharge: 31 Hospital Course: This 84-year-old white female was seen in the emergency room at [facility] with complaints of nausea and vomitin, patient also admitted to intermittent confusion and feeling lightheaded. Patient attempted to increase her fluid intake at home but was not able to do so because of nausea and vomiting. Labs performed in the emergency room were abnormal for sodium of 120, patient's potassium was low at 3.3, and there was an elevated BUN to creatinine ratio. Patient was admitted to PCU for hyponatremia, hypokalemia, dehydration, and metabolic encephalopathy, she was given IV fluids and her labs were monitored. Patient is nausea and vomiting resolved, her potassium normalized, and the patient's sodium cruz to 130. Patient was given lactulose for constipation. On 04/03/2024, patient was seen and examined: On examination she appeared in good health and spirits, she does not appear to be in any distress. Vital signs as documented. Skin warm and dry and without overt rashes. Neck without JVD, thyroid appears normal, trachea is midline, neck is supple. Lungs clear, normal air movement was noted. Heart exam notable for regular rhythm, normal sounds and absence of murmurs, rubs or gallops. Abdomen unremarkable and without evidence of organomegaly, masses, or abdominal aortic enlargement, bowel sounds are present in all 4 quadrants, no abdominal tenderness was noted. Extremities nonedematous, no cyanosis was noted, no clubbing was noted. Neuro: Cranial nerves II through XII are grossly intact, no focal motor deficits were noted, sensation to light touch and pinprick is intact, motor exam 5/5 throughout. Psych: Patient is alert and oriented x3, she does not appear anxious or depressed, she does not appear agitated. Patient was felt to be stable for discharge home on 04/03/2024. Weight / BMI Weight Weight: 82.7 kg Body Mass Index (BMI) 33.5 ABG / Lab / Microbiology Data 04/02/24 02:27 04/03/24 05:15 Laboratory: Laboratory Results - last 24 hr 04/02/24 02:27: Vitamin B12 1589 H, Cortisol 14.80 04/02/24 11:39: Sodium 128 L, Potassium 4.7, Chloride 96 L, Carbon Dioxide 26.0, Anion Gap 6, BUN 11, Creatinine 0.57, Estim Creat Clear Calc 40.66, Est GFR (MDRD) Af Amer 130, Est GFR (MDRD) Non-Af 108, BUN/Creatinine Ratio 19.4, Glucose 98, Calcium 8.3 L 04/02/24 16:03: Sodium 131 L, Potassium 4.5, Chloride 96 L, Carbon Dioxide 29.0, Anion Gap 6, BUN 11, Creatinine 0.61, Estim Creat Clear Calc 40.66, Est GFR (MDRD) Af Amer 120, Est GFR (MDRD) Non-Af 99, BUN/Creatinine Ratio 18.1, Glucose 93, Calcium 8.7 04/03/24 05:15: Sodium 130 L, Potassium 4.6, Chloride 99, Carbon Dioxide 27.0, Anion Gap 4 L, BUN 15, Creatinine 0.65, Estim Creat Clear Calc 51.25, Est GFR (MDR (more content not included)...[facility]10-26-2024 Telephone encounter Note* Telephone Encounter - Marcella See RN - 04/01/2024 6:58 PM EDT S: Patient's daughter spoke with [facility] nurse regarding dehydration. B: Onset of symptoms for a week. A: Seen in the office and directed to the ER for IV fluids and then refusing to go to the ER. Vomiting and dry heaves, able to drink 2 glasses of Pedialyte and then vomited, is urinated, has been to the ER this week and the physician office, confusion and normally is not, some dizziness noted. R: Instructed to be seen in the ER for eval, daughter will take her to [facility] Patient understands care advice. No further needs at this time. Patient instructed to call back with new or worsening symptoms. Reason for Disposition [1] SEVERE vomiting (e.g., 6 or more times/day) AND [2] present > 8 hours (Exception: Patient sounds well, is drinking liquids, does not sound dehydrated, and vomiting has lasted less than 24 hours.) Protocols used: [id number]-VL [facility] [id number] Miscellaneous Notes* Telephone Encounter - Marcella See RN - 04/01/2024 6:58 PM EDT S: Patient's daughter spoke with [facility] nurse regarding dehydration. B: Onset of symptoms for a week. A: Seen in the office and directed to the ER for IV fluids and then refusing to go to the ER. Vomiting and dry heaves, able to drink 2 glasses of Pedialyte and then vomited, is urinated, has been to the ER this week and the physician office, confusion and normally is not, some dizziness noted. R: Instructed to be seen in the ER for eval, daughter will take her to [facility] Patient understands care advice. No further needs at this time. Patient instructed to call back with new or worsening symptoms. Reason for Disposition [1] SEVERE vomiting (e.g., 6 or more times/day) AND [2] present > 8 hours (Exception: Patient sounds well, is drinking liquids, does not sound dehydrated, and vomiting has lasted less than 24 hours.) Protocols used: [id number]-FE documented in this encounterSMercy [id number] Note. MICRO - Microbiology PROCEDURE: Urine Culture [*1] SOURCE: Urine, Clean Catch BODY SITE: COLLECTED DATE/TIME: 11/22/2023 08:25 EDT RECEIVED DATE/TIME: 11/22/2023 19:34 EDT START DATE/TIME: 11/22/2023 19:34 EDT FREE TEXT SOURCE: FINAL REPORTS Final Report [] Verified Date/Time/Personnel: 11/23/2023 14:08 EDT <10,000 cfu/ml. No Significant growth. Sensitivity not indicated. Performing Locations *1: This test was performed at: [facility], [address] [place] [address], [id number] , Formerly [facility], [facility] ([place]11-08-2023 Note ORIGINAL EXAMINATION: CT OF THE ABDOMEN AND PELVIS WITH CONTRAST6/08/2023 2:17 pm TECHNIQUE: CT of the abdomen [...] resident's findings and interpretation. Interpreted by: Nii Munoz MD Preliminary Report By: Markell Jimenez Electronically signed By Nii Munoz MD Dictated Date: 11/08/2023 2:48:52 PM Prelim Date: 11/08/2023 3:25:32 PM Sign Date: 11/08/2023 3:25:32 PM Ordering Provider: LIZZETTE [facility]05-29-2024 Note ORIGINAL EXAMINATION: ONE SUPINE XRAY VIEW(S) [...] Date: 11/03/2023 10:51:20 AM Ordering Provider: LIZZETTE [facility]04-30-2024 Discharge summary Author Lito Mendenhall [facility] October 05, 2023 10:44am Note Date/Time October 05, 2023 8:4 2am [facility] Medical Records Department [address] [place] [address] Emergency Department Summary 10/05/23 MR#: [id number] Acct: [id number] Name: BOB MCKENNA Rep #:[id number] : 1940 83 From: Lito Shepherd PCP: Dr. Lizzette Apple, DO Status:REG ER Location: ED HPI History of Present Illness Chief Complaint: Back PFSH PFSH Medical History Anemia CLL (chronic lymphocytic leukemia) Encounter for education Hematuria High blood pressure Hyperlipidemia Hypothyroidism Low back pain with right-sided sciatica Mitral valve prolapse Muscle cramping Need for hepatitis C screening test Osteoporosis Psoriasis Skin lesion of face Skin lesion of neck Stress incontinence Supraclavicular lymphadenopathy Supraclavicular mass URI with cough and congestion Urinary frequency Varicose veins of legs Vertigo Home Medications ascorbic acid (vitamin C) 100 mg tablet 100 mg PO DAILY 08/14/22 [History Last Taken Unknown] aspirin 81 mg tablet,delayed release 81 mg PO DAILY 08/14/22 [History Last Taken Unknown] calcium carbonate 600 mg PO DAILY 08/14/22 [History Last Taken Unknown] cholecalciferol (vitamin D3) 10 mcg (400 unit) capsule 10 mcg PO DAILY 08/14/22 [History Last Taken Unknown] chromium picolinate 200 mcg tablet 200 mcg PO DAILY 08/14/22 [History Last Taken Unknown] losartan 50 mg tablet 50 mg PO BID 08/14/22 [History Last Taken Unknown] lutein 20 mg capsule 20 mg PO DAILY 08/14/22 [History Last Taken Unknown] magnesium carbonate 08/18/22 [History Last Taken Unknown] polyethylene glycol 3350 17 gram/dose oral powder (Miralax) 4 g PO DAILY 02/23/23 [History Last Taken Unknown] psyllium husk 3.4 gram/5.4 gram oral powder (Metamucil) 1 tbsp PO DAILY 02/23/23[History Last Taken Unknown] cholecalciferol (vit D3) 1,000 unit-vitamin K2 (MK4) 100 mcg tablet 1 tab PO DAILY 03/01/23 [History Last Taken Unknown] mecobalamin (vitamin B12) 1,000 mcg lozenges 1,000 mcg PO Q OTHER DAY 03/01/23 [History Last Taken Unknown] omega 7-wal-aef-fish oil 300 mg-1,000 mg capsule (Fish Oil) 1 cap PO DAILY 03/01/23 [History Last Taken Unknown] vitamin E succinate 268 mg (400 unit) tablet 268 mg PO Q OTHER DAY 03/01/23 [History Last Taken Unknown] zinc amino acid chelate 50 mg tablet 50 mg PO DAILY 03/01/23 [History Last Taken Unknown] pantoprazole 40 mg tablet,delayed release 80 mg PO DAILY 05/10/23 [History Last Taken Unknown] levothyroxine 88 mcg capsule 88 mcg PO DAILY 06/01/23 [History Last Taken Unknown] Disability Placard #1 ea 09/07/23 [Rx Last Taken Unknown] oxycodone 5 mg capsule 5 mg PO Q6H PRN pain 3 days #12 caps 10/05/23 [Rx Last Taken Unknown] Allergy/AdvReac Type Severity Reaction Status Date / Time No Known Allergies Allergy Verified 09/07/23 14:29 Family History Brother CAD (coronary artery disease) Cancer Hyperlipemia Mother Cancer Leukemia Sister Cancer Sarcoma Surgical History H/O umbilical hernia repair History of tonsillectomy S/P abdominal hysterectomy S/P appendectomy Social History Smoking Status: Never smoker alcohol intake: never substance use type: does not use EXAM Physical Exam Const Vital Signs: 10/05/23 08:17 10/05/23 09:45 Temperature 98.1 F Temperature Source Temporal Pulse Rate 83 80 Respiratory Rate 16 16 Blood Pressure 179/128 H 170/73 H Blood Pressure Mean 145 105 Pulse Ox 100 100 Oxygen Delivery Method Room Air Room Air MDM MDM MDM Narrative Medical decision making narrative: HISTORY OF PRESENT ILLNESS: 83-year-old female presents with back pain. This started 1 month ago after chiropractor adjustment. States she is a known fracture. This pain has gotten worse. Notes she initially was prescribed tramadol but cannot tolerate this secondary nausea vomiting. She is then prescribed hydrocodone medicine and ran out. Note she has a appointment in 2 days with a spine surgeon as well as an MRI scheduled. Patient denies any saddle anesthesia, urinary retention, bowel or bladder incontinence, lower extremity weakness, fever or IV drug use, no recent spinal manipulation or surgery, no recent urinary catheterization. REVIEW OF SYSTEMS: Pertinent positives: Back pain, constipation Pertinent negatives: Followed by incontinence, focal weakness PHYSICAL EXAM: Nursing triage notes reviewed, Vital signs reviewed Constitutional: please see mdm HENT: MMM Eyes: Pupils equal round and reactive to light, Extraocular muscles intact Neck: No stridor, no JVD, full neck ROM Lungs: Clear to auscultation, No wheezing or rales. No increased work of breathing, no conversational dyspnea, no accessory muscle use, no nasal flaring. No respiratory distress noted Heart: Regular rate and rhythm, No murmurs, No rubs and No gallops, 2+ distal pulses (radial, femoral, posterior tibial) in all extremities Abdomen: Soft, there is no tenderness, rigidity, rebound or guarding, no obviousperitoneal signs, no palpable pulsatile abdominal masses, no auscultated abdominal bruit : No CVAT Extremities: No edema Neuro: Intact sensation L1-S1 dermatomal distributions. Intact 5/5 strength in hip flexion (T12-L3). Knee extension (L2-L4). Ankle dorsiflexion (L4-L5). Ankle plantar flexion (S1). Great toe extension (L5). 2+ patellar and AchillesDTRs. Skin: No rash or lesions noted MEDICAL DECISION MAKING: Chief Complaint: Back pain External records reviewed: No recent advanced imaging of the thoracic and lumbarspine and [facility] records however in clinic think I found a CT scan of the abdomen pelvis as well as lumbar spine from 10/04/2023 which showed the following FINDINGS: There is some compression deformity of [...] of height at the superior L4 endplate. Factors affecting care: Back pain, hyperlipidemia, CLL, lumbar spine fracture Social determinants of health: Elderly History obtained from others: EMS Consults: none at this time MDM Narrative: Patient was hemodynamically stable, afebrile and nontoxic-appearing. There is TTP over the lower lumbar spine. There are no focal neurologic deficits including numbness weakness or loss sensation or strength in the lower extremities. I considered the following differential diagnosis: Lumbar radiculopathy, fracture dislocation, space-occupying lesion of the spine (epidural abscess, conus medullaris) Imaging reviewed from yesterday. No indication to repeat imaging today Gave symptomatic treatment in the form of oral Percocet, IM Decadron, ibuprofen and lidocaine patch Gave instructions to take a bowel regimen to improve opiate related constipationand gave Percocet prescription. She has close follow-up with spine surgery in 2days as well as an MRI scheduled in 2 days. I do not believe the patient has anacute spinal emergency at this time she is ambulatory she has no focal neurologic findings and is appropriate for discharge home. The patient and/or family, caregivers express understanding. The patient and/orfamily, caregivers agrees with the plan. Shared decision making: I will have a discussion with the patient and or visitors regarding risk/benefits of further testing or admission. They will be made aware of of the risk/benefits inherent in this decision they will be given the opportunity to voice understanding. Total critical care time today provided was at least 0 minutes. This excludes separately billable procedures. Critical care time (if documented) is secondary to the patient having high probability of clinically significant/life threatening deterioration in the patient's condition which required my urgent intervention. Impression: 1. L3 endplate fracture 2. L4 endplate fracture 3. Lumbar radiculopathy Dispo: discharge This note was generated with EasyPost dictation software. It may contain incorrectwords, spelling, and punctuation that were not noted in review of the chart prior to signing. Discharge Plan Triage Chief Complaint: Back ED Provider: Lito Mendenhall Dx/Rx/DC Orders Clinical Impression: Closed compression fracture of lumbar vertebra Instructions: ED Fracture, Vertebral Compression Prescriptions: New oxycodone 5 mg capsule 5 mg PO Q6H PRN (Reason: pain) 3 Days Qty: 12 0RF No Action ascorbic acid (vitamin C) 100 mg tablet 100 mg PO DAILY aspirin 81 mg tablet,delayed release (DR/EC) 81 mg PO DAILY calcium carbonate 600 mg calcium (1,500 mg) tablet 600 mg PO DAILY cholecalciferol (vitamin D3) 10 mcg (400 unit) capsule 10 mcg PO DAILY chromium picolinate 200 mcg tablet 200 mcg PO DAILY losartan 50 mg tablet 50 mg PO BID lutein 20 mg capsule 20 mg PO DAILY Rx Instructions: give with meal/snack magnesium carbonate levothyroxine 88 mcg capsule 88 mcg PO DAILY Patient Comments: 2 tabs on wednesday and wednesday Metamucil 3.4 gram/5.4 gram powder 1 tbsp PO DAILY Rx Instructions: mix into at least 8 oz of water or juice before administering polyethylene glycol 3350 [Miralax] 17 gram/dose powder 4 g PO DAILY vitamin E succinate 268 mg (400 unit) tablet 268 mg PO Q OTHER DAY mecobalamin (vitamin B12) 1,000 mcg lozenge 1,000 mcg PO Q OTHER DAY Rx Instructions: allow to dissolve in mouth OR may chew lightly before swallowing zinc amino acid chelate 50 mg tablet 50 mg PO DAILY omega 6-pza-tpo-fish oil [Fish Oil] 300-1,000 mg capsule 1 cap PO DAILY vitamin D3-vitamin K2 (MK4) 1,000-100 unit-mcg tablet 1 tab PO DAILY Rx Instructions: D3 2,000 IU + K2 100mcg pantoprazole 40 mg tablet,delayed release (DR/EC) 80 mg PO DAILY (DME) Disability Placard See Rx Instructions .Route .MEDSUPPLY Qty: 1 0RF Rx Instructions: As directed Primary Care Provider: Lizzette Apple Referrals: Brien Flores DO [Med Staff - Active Staff] - Lizzette Apple DO [Primary Care Provider] - Activity Restrictions/Additional Instructions: Thank you for trusting us with your care today! Given diagnosed with a lumbar compression fracture. Please go to local pharmacy or drugstore and obtain Salonpas lidocaine patch andapply these as directed. Please take Tylenol (2 pills, 650 mg), ibuprofen (2 pills, 400 mg) every 6 hoursas needed for pain and fever control. If the above regimen does not control your pain. Please take oxycodone as needed every 6 hours. Narcotic pain medicine such as oxycodone can cause constipation. You should begin a bowel regiment which should consist of fiber 1 cereal, MiraLAX, Colace, senna. Please use this regimen daily to achieve regular bowel movements. Please return to the emergency department if your symptoms change or worsen. Specifically if develop bowel or bladder incontinence, urinary tension, loss of movement or sensation in your legs, decree sensation around your private area. Please follow with your primary care physician as well as spinal surgeon for further outpatient evaluation and management. Disposition Disposition: Home, Self Care What to do if you have Problems For any increased pain, shortness of breath, bleeding, nausea or vomiting, chestpain, or any unexpected problems, contact your Primary Care Provider. Call [email or web address] ([phone]) or report to the closest Emergency Room. Call 911 if necessary. 10/05/23 1044 <Electronically signed by Lito Mendenhall DO> Cosigner Signature (if applicable): CC: Dr. Lizzette Apple DO ~ Signed [facility] Work Phone: [phone] Hospital Discharge instructions Patient Education 10/04/2023 12:45:26 AA Blank DI (CUSTOM) Result type:CT Abd/Pelvis w/ IV Contrast Only Result date:October 04, 2023 11:49 EDT Result status:Auth (Verified) Result title:CT ABD/PELVIS W/ IV CONTRAST ONLY Performed by:NII MUNOZ MD on October 04, 2023 11:37 EDT Cosigned by:NII MUNOZ MD Verified by:NII MUNOZ MD on October 04, 2023 11:49 EDT Encounter info:[id number], [facility], [facility] - Contributor system:[employer] * Final Report * [id number] ORIGINAL EXAMINATION: CT OF THE ABDOMEN AND [...] the superior L4 endplate. Interpreted by: Nii Munoz MD Preliminary Report By: Nii Munoz MD Electronically signed By iNi Munoz MD Dictated Date: 10/04/2023 12:03:17 PM Prelim Date: 10/04/2023 12:06:02 PM Sign Date: 10/04/2023 12:06:02 PM Ordering Provider: LEONARDO GUIDRY IMAGE This document has an image Document Released: 05/24/2006 Document Revised: 05/10/2013 Document Reviewed: 05/25/2014 [facility] Patient Information 2015 [employer]. This information is not intended to replace advicegiven to you by your health care provider. [...] spine cause the pain. it is usually causedby an injury, whether known or not, to [...] your side with your knees bent up towardsyour chest and a pillow between your knees. [...] not use a heating pad at bedtime. Sleepingwith a heating pad can lead to skin [...] are taking other medicines. You may use ewvi-fvr-ncjryki medicine to control pain, unless another pain medicine was prescribed.If you have chronic conditions like diabetes, liver or kidney disease, stomach ulcers, gastrointestinal bleeding, or are taking blood thinner medicines. Be careful if you are given pain medicines, narcotics, or medicine for muscle spasm. They can causedrowsiness, and can affect your coordination, reflexes, and judgment. Do not drive or operate heavyInteractive FatehieDeriv Technologiesy. Follow-up care Follow up with your healthcare [...] or as directed by your healthcare provider [id number] [employer]. [address] [place] [address], [place] [id number]. All rights reserved. This information is not intended as a substitute for professional medical care. Always follow yourhealthcare professional's instructions. 10/04/2023 10:31:36 Abdominal Pain Abdominal [...] find the cause of your pain. If needed,you will have tests. Belly pain has many [...] foods again, start with small amounts of jmmy-iz-iswqlf, low- fat foods. These include apple sauce, toast, or [...] increase stomach acid. Don't use aspirin or sgwi-dum-ifcltls pain and fever medicines, if possible. This includes nonsteroidal anti-inflammatory drugs (NSAIDs). Lose excess weight. Finish eating at least 2 hours before you go to bed or lie down. Raise the head of your bed. 7812-1725 [employer]. [address] [place] [address], [place] [address]. All rights reserved. This information is not intended as a substitute for professional medical care. Always follow yourhealthcare professional's instructions. Follow Up Care 10/04/2023 10:06:48 With:JEROD SUN MD Address: Roxann Alejo [facility] [address] [place] [address]- [phone] When:2-4 days With:your back doctor Address: When:2-4 days With:Go to emergency room if symptoms worsen Address:Unknown When:2-4 days With:LIZZETTE APPLE DO Address: [address] [place] [phone] When:2-4 days [facility] 04-29-2024 Note Discharge Instructions Thank you for allowing [facility] to assist you with your healthcare needs. The following is importantdischarge information regarding your hospital visit. Diagnosis from [...] Schedule the Following Appointments Follow Up with JEROD SUN MD When Within 2-4 days Where: Roxann Melo [facility] [address] [place] [address] [phone] Follow Up with your back doctor When Within 2-4 days Where: Follow Up with Go to emergency room if symptoms worsen When Within 2-4 days Follow Up with LIZZETTE APPLE DO When Within 2-4 days Where: [address] [place] [phone] Allergies NKA Medications Please ask your primary doctor or pharmacist before taking any other medication not listed, including over the counter drugs, herbal medications, vitamins and or supplements as they may interact withyour home medications. What How Much When Why [...] W/ IV CONTRAST ONLY Performed by: NII MUNOZ MD on October 04, 2023 11:37 EDT Cosigned by: NII MUNOZ MD Verified by: NII MUNOZ MD on October 04, 2023 11:49 EDT Encounter info: [id number], [facility] [place], Emergency, 10/04/2023 - Contributor system: [employer] * Final Report * [id number] ORIGINAL EXAMINATION: CT OF THE ABDOMEN AND [...] the superior L4 endplate. Interpreted by: Nii Munoz MD Preliminary Report By: Nii Munoz MD Electronically signed By Nii Munoz MD Dictated Date: 10/04/2023 12:03:17 PM Prelim Date: 10/04/2023 12:06:02 PM Sign Date: 10/04/2023 12:06:02 PM Ordering Provider: LEONARDO GUIDRY IMAGE This document has an image Document Released: 05/24/2006 Document Revised: 05/10/2013 Document Reviewed: 05/25/2014 [employer] Patient Information 2015 [employer]. This information is not intended to replace advicegiven to you by your health care provider. [...] spine cause the pain. it is usually causedby an injury, whether known or not, to [...] your side with your knees bent up towardsyour chest and a pillow between your knees. [...] not use a heating pad at bedtime. Sleepingwith a heating pad can lead to skin [...] are taking other medicines. You may use vsbq-yuq-ewugoxp medicine to control pain, unless another pain medicine was prescribed.If you have chronic conditions like diabetes, liver or kidney disease, stomach ulcers, gastrointestinal bleeding, or are taking blood thinner medicines. Be careful if you are given pain medicines, narcotics, or medicine for muscle spasm. They can causedrowsiness, and can affect your coordination, reflexes, and judgment. Do not drive or operate heavyMophie. Follow-up care Follow up with your healthcare [...] or as directed by your healthcare provider [phone] [employer]. [address] [place] [address], [place] [address]. All rights reserved. This information is not intended as a substitute for professional medical care. Always follow yourhealthcare professional's instructions. Abdominal Pain Abdominal pain is [...] find the cause of your pain. If needed,you will have tests. Belly pain has many [...] foods again, start with small amounts of wyma-lq-uxtduf, low- fat foods. These include apple sauce, toast, or [...] increase stomach acid. Don't use aspirin or bzny-rrv-osecmjm pain and fever medicines, if possible. This includes nonsteroidal anti-inflammatory drugs (NSAIDs). Lose excess weight. Finish eating at least 2 hours before you go to bed or lie down. Raise the head of your bed. 2490-4494 [employer]. [address] [place] [address]. All rights reserved. This information is not intended as a substitute for professional medical care. Always follow yourhealthcare professional's instructions. Additional Information VACCINATE! IT SAVES LIVES! Members of the community who have not yet received the COVID-19 vaccine and would like to receive it can visit one of [facility] vaccine clinics. There are many vaccine clinic locations within the [facility]. For locations and available times, please visit www.[email or web address].[place].gov/. It is important to note that some COVID mobile vaccine clinics are held outdoors and may be canceled in rainy or stormy conditions. To learn more about pediatric vaccinations (ages 5-11), we invite you to visit the [facility] webpage. https://www.[facility].org/pages/2952-Djnol-Moqhhbpocek-Vawwxnjouw-Nyrkp-Nnd stions.htmlTo learn more about the COVID-19 vaccine, we invite you to visit the CDC website for a list of frequently asked questions. https://www.cdc.gov/coronavirus/2019-ncov/vaccines/faq.html [facility] Patient Portal Access Instructions: Stay connected with your healthcare team and access your personal medical information anytime with the [facility] Patient [facility]. If you would like a full copy of your medical records please contact the [facility] Medical Records Department Wednesday through Wednesday between 8a.m. and 4:30p.m. Please follow the directions below to access the portal: 1.Access the email account you provided upon registration to the [facility].2.Look for an invitation email from [facility].3.Open the email and access the invitation link: Accept Invitation to [facility]4.Fill in the required shah to create your account. Sign into [email or web address] with your username and password that you [...] you will allow to register on the [facility] Patient Portal for access to your information. You can also access the [facility] Patient Portal on the [employer] denis. Simply click on Health Records under [facility] and then click on the [facility] logo. HOW TO SAFELY DISPOSE OF PRESCRIPTION MEDICATIONS Please use one of the following methods to safely dispose of your unused medications. 1.Use a drug disposal kit: the drug disposal pouch allows you to safely discard your old and unuseddrugs. Ask your nurse to give you one when you are discharged.2.Visit a local take-back location: Many local pharmacies and police departments have programs that collect old and unwanted prescriptiondrugs. Call your local pharmacy or go to http://bit.[employer]/0L3Kv6h to find one close to you.3.Make use of household items: Use cat litter or old coffee grounds to dispose medications if other options arenot available. Mix your drugs with these household products, seal them in an airtight container andthrow it into the garbage. Call [facility]: [phone] to be sure your drugs can be [...] drowsiness, such as benzodiazepines, also known as benzos,including diazepam and alprazolam, muscle relaxants or sleep aids. Never sell or share prescriptionopioids. This is illegal. Store opioids in a secure place and out of reach of others (including children, family, friends and visitors). The last page(s) of this document has been signed and retained as a CHART COPY Signatures Patient Education Materials AA Ema DI (CUSTOM) Back and Neck Pain, General Abdominal Pain Medication Leaflets My discharge plan and instructions have been reviewed and explained to me and IBALA CAROLYN M understand my current condition and have read and understand these discharge instructions. I have received a written copy of the plan/instructions. If I have questions, I am aware that I should contact my doctor. Patient/Shuttle Final Inspector Signature: Date/Time: Relationship to Patient: Witness Name/Signature: Date/Time: [facility]04-29-2024 Note ORIGINAL EXAMINATION: CT OF THE ABDOMEN [...] the superior L4 endplate. Interpreted by: Nii Munoz MD Preliminary Report By: Nii Munoz MD Electronically signed By Nii Munoz MD Dictated Date: 10/04/2023 12:03:17 PM Prelim Date: 10/04/2023 12:06:02 PM Sign Date: 10/04/2023 12:06:02 PM Ordering Provider: [facility]04-16-2024 Hospital Discharge instructions Patient Education 09/21/2023 10:15:50 Back Pain (Acute or Chronic) Back Pain (Acute or Chronic) Back pain is one of the most common problems. The good news is that most people feel better in 1 to2 weeks, and most of the rest in [...] muscles or spine cause the pain. Mechanical problemsare usually caused by an injury to the [...] your side with your knees bent up towardsyour chest and a pillow between your knees. [...] are taking other medicines. You may use rblz-jmm-amsappy medicine as directed on the bottle to control pain, unless another pain medicine was prescribed. If you have chronic conditions like diabetes, liver or kidney disease, stomach ulcers, or gastrointestinal bleeding, or are taking blood thinners, talk to your doctor beforetaking any medicine. Be careful if you are [...] Numbness in the groin or genital area [id number] [employer] [place] [address], [place] [address]. All rights reserved. This information is not intended as a substitute for professional medical care. Always follow yourhealthcare professional's instructions. Follow Up Care 09/21/2023 09:32:16 With:LIZZETTE APPLE Address: [address] [place] [address] [place] [address]- [phone] Business (1) When:1-2 days Comments:Contact your doctor's office to schedule an outpatient MRI of your lumbar spine.Limit activity as tolerated.Continue pain medication as prescribed by your doctor.Use Omaha as prescribed for severe pain. Take Zofran prior to try to prevent GI side effects of the pain medication.Return to the ED if symptoms worsen. [facility] 04-16-2024 Note Discharge Instructions Thank you for allowing [facility] to assist you with your healthcare needs. The following is importantdischarge information regarding your hospital visit. Diagnosis from Today's Visit Back pain Back pain What to Do Next Instructions from Your Care Team No qualifying data available. Post Acute Orders No qualifying data available. You Need to Schedule the Following Appointments Follow Up with LIZZETTE APPLE When Within 1-2 days Why: Contact your doctor's office to schedule an outpatient MRI of your lumbar spine. Limit activity as tolerated. Continue pain medication as prescribed by your doctor. Use Omaha as prescribed for severe pain. Take Zofran prior to try to prevent GI side effects of thepain medication. Return to the ED if symptoms worsen. Where: [address] [place] [address] [place] [address]- [phone] Business (1) Allergies NKA Medications Please ask your primary doctor or pharmacist before taking any other medication not listed, including over the counter drugs, herbal medications, vitamins and or supplements as they may interact withyour home medications. What How Much When Why Instructions Last Dose New acetaminophen-hydrocodone (Omaha 325- 5 mg oral tablet) 1 tab(s) [...] that most people feel better in 1 to2 weeks, and most of the rest in [...] muscles or spine cause the pain. Mechanical problemsare usually caused by an injury to the [...] your side with your knees bent up towardsyour chest and a pillow between your knees. [...] are taking other medicines. You may use vcke-ofb-jilcojo medicine as directed on the bottle to control pain, unless another pain medicine was prescribed. If you have chronic conditions like diabetes, liver or kidney disease, stomach ulcers, or gastrointestinal bleeding, or are taking blood thinners, talk to your doctor beforetaking any medicine. Be careful if you are [...] Numbness in the groin or genital area 5529-6051 [employer]. [address] [place] [address]. All rights reserved. This information is not intended as a substitute for professional medical care. Always follow yourhealthcare professional's instructions. Additional Information VACCINATE! IT SAVES LIVES! Members of the community who have not yet received the COVID-19 vaccine and would like to receive it can visit one of [facility] vaccine clinics. There are many vaccine clinic locations within the [facility]. For locations and available times, please visit www.[email or web address].[email or web address]/. It is important to note that some COVID mobile vaccine clinics are held outdoors and may be canceled in rainy or stormy conditions. To learn more about pediatric vaccinations (ages 5-11), we invite you to visit the [facility] webpage. https://www.[facility].org/pages/4207-Ndqkz-Xebggaosbwf-Mzwxsfhbti-Ydbdz-Wii stions.htmlTo learn more about the COVID-19 vaccine, we invite you to visit the CDC website for a list of frequently asked questions. https://www.cdc.gov/coronavirus/2019-ncov/vaccines/faq.html [facility] Patient Portal Access Instructions: Stay connected with your healthcare team and access your personal medical information anytime with the [facility] Patient Portal. If you would like a full copy of your medical records please contact the [facility] Medical Records Department Wednesday through Wednesday between 8a.m. and 4:30p.m. Please follow the directions below to access the portal: 1.Access the email account you provided upon registration to the [facility].2.Look for an invitation email from [facility].3.Open the email and access the invitation link: Accept Invitation to [facility]4.Fill in the required shah to create your account. Sign into www.[email or web address] with your username and password that you [...] you will allow to register on the [facility] Patient Portal for access to your information. You can also access the [facility] Patient Portal on the MedTel.com. Simply click on Health Records under [facility] and then click on the [employer] logo. HOW TO SAFELY DISPOSE OF PRESCRIPTION MEDICATIONS Please use one of the following methods to safely dispose of your unused medications. 1.Use a drug disposal kit: the drug disposal pouch allows you to safely discard your old and unuseddrugs. Ask your nurse to give you one when you are discharged.2.Visit a local take-back location: Many local pharmacies and police departments have programs that collect old and unwanted prescriptiondrugs. Call your local pharmacy or go to http://Vaultive.[employer]/8R3Ud3l to find one close to you.3.Make use of household items: Use cat litter or old coffee grounds to dispose medications if other options arenot available. Mix your drugs with these household products, seal them in an airtight container andthrow it into the garbage. Call [facility]: [phone] to be sure your drugs can be [...] drowsiness, such as benzodiazepines, also known as benzos,including diazepam and alprazolam, muscle relaxants or sleep aids. Never sell or share prescriptionopioids. This is illegal. Store opioids in a secure place and out of reach of others (including children, family, friends and visitors). The last page(s) of this document has been signed and retained as a CHART COPY Signatures Patient Education Materials Back Pain (Acute or Chronic) Medication Leaflets My discharge plan and instructions have been reviewed and explained to me and I,BOB MCKENNA M understand my current condition and have read and understand these discharge instructions. I have received a written copy of the plan/instructions. If I have questions, I am aware that I should contact my doctor. Patient/Shuttle Final Inspector Signature: Date/Time: Relationship to Patient: Witness Name/Signature: Date/Time: [facility]04-10-2024 Note. MICRO - Microbiology PROCEDURE: Urine Culture [*1] [...] Locations *1: This test was performed at: [facility], [address] [place] [address], [facility] , [facility], [facility] ([place]05-08-2023 Hospital Discharge instructions Patient Education 05/08/2023 13:15:20 Chest Pain, Noncardiac Noncardiac Chest Pain Based on your visit today, the healthcare provider doesn t know what is causing your chest pain. Inmost cases, people who come to the emergency department with chest pain don t have a problem with their heart. Instead, the pain is caused by other conditions. It's important for the healthcare team to be sure you are not having a life threatening cause for chest pain such as a heart attack, blood c lot in the lungs, collapsed lung, ruptured esophagus, [...] don t start to feel better within 24hours. When to seek medical advice Call your [...] Swelling, pain, or redness in one leg 2918-8519 [employer]. [address] [place] [address], [place] [address]. All rights reserved. This information is not intended as a substitute for professional medical care. Always follow yourhealthcare professional's instructions. Follow Up Care 05/08/2023 09:01:37 With:LIZZETTE APPLE DO Address: [address] [place] [address] [phone] When:2-4 days [facility] 12-02-2023 Note Discharge Instructions Thank you for allowing [facility] to assist you with your healthcare needs. The following is importantdischarge information regarding your hospital visit. Diagnosis from Today's Visit Atypical chest pain Chest pain What to Do Next Instructions from Your Care Team No qualifying data available. Post Acute Orders No qualifying data available. You Need to Schedule the Following Appointments Follow Up with LIZZETTE APPLE DO When Within 2-4 days Where: [address] [place] [address] [phone] Allergies NKA Medications Please ask your primary doctor or pharmacist before taking any other medication not listed, including over the counter drugs, herbal medications, vitamins and or supplements as they may interact withyour home medications. What How Much When Why [...] a broken bone while taking this medicine rn long term care or more than onceper day. What is pantoprazole? Pantoprazole is used to treat erosive esophagitis (damage to the esophagus from stomach acid causedby gastroesophageal reflux disease, or GERD) in adults and children who are at least 5 years old. Pantoprazole is usually given for up to 8 weeks at a time while your esophagus heals. Pantoprazole is also used to treat Lavonne-Man syndrome and other conditions involving excessstomach acid. Pantoprazole is not for immediate relief [...] your doctor about ways to keep your boneshealthy. Tell your doctor if you are or [...] an infusion into a vein (injection). A healthcareprovider may teach you how to properly use pantoprazole injection by yourself. Pantoprazole tablets are taken by mouth, with or without food. Pantoprazole oral granules should betaken 30 minutes before a meal. Do not [...] a new infection. If you have diarrhea thatis watery or bloody, call your doctor. Do not use anti- diarrhea medicine unless your doctor tells you to. [...] rash on your cheeks or arms that worsensin sunlight. Taking pantoprazole long-term may cause you to develop stomach growths called fundic gland polyps. Talk with your doctor about this risk. If you use pantoprazole for longer than 3 years, you could develop a vitamin B- 12 deficiency. Talk to your doctor about how [...] may report side effects to FDA at 6-928-WEJ-0107. What other drugs will affect pantoprazole? Tell your doctor about all your other medicines, especially: digoxin; methotrexate; or a diuretic or 'water pill.' This list is not complete. Other drugs may affect pantoprazole, including prescription and rqqf-maw-gekrczc medicines, vitamins, and herbal products. Not all [...] to ensure that the information provided by [employer]. ('[employer]') is accurate, up-to-date, and complete, but no guarantee is made to that effect. Drug information contained herein may be time sensitive. myhub information has been compiled for use by healthcare practitioners and consumers in the [place] and therefore [employer]hub does not warrant that uses outside of the [place] are appropriate, unless specifically indicated otherwise. [employer] drug information does not endorse drugs, diagnose patients or recommend therapy. [employer] drug information isan informational resource designed to assist licensed healthcare practitioners in caring for their p atients and/or to serve consumers viewing this service as a supplement to, and not a substitute for, the expertise, skill, knowledge and judgment of healthcare practitioners. The absence of a warningfor a given drug or drug combination in no way should be construed to indicate that the drug or drug combination is safe, effective or appropriate for any given patient. [employer]hub does not assume any responsibility for any aspect of healthcare administered with the aid of information myhub provides. The information contained herein is not intended to cover all possible uses, directions, precautions, warnings, drug interactions, allergic reactions, or adverse effects. If you have questions about the drugs you are taking, check with your doctor, nurse or pharmacist. Copyright 7787-5336 [employer]. Version: .. Revision Date: 06/10/2020. Education Materials Noncardiac Chest Pain Based on your visit today, the healthcare provider doesn t know what is causing your chest pain. Inmost cases, people who come to the emergency department with chest pain don t have a problem with their heart. Instead, the pain is caused by other conditions. It's important for the healthcare team to be sure you are not having a life threatening cause for chest pain such as a heart attack, blood c lot in the lungs, collapsed lung, ruptured esophagus, [...] don t start to feel better within 24hours. When to seek medical advice Call your [...] Swelling, pain, or redness in one leg 2841-3365 [employer]. [address] [place] [address], [place] [address]. All rights reserved. This information is not intended as a substitute for professional medical care. Always follow yourhealthcare professional's instructions. Additional Information VACCINATE! IT SAVES LIVES! Members of the community who have not yet received the COVID-19 vaccine and would like to receive it can visit one of [facility] vaccine clinics. There are many vaccine clinic locations within the State. For locations and available times, please visit www.gettheshot.coronavirus.[place].gov/. It is important to note that some COVID mobile vaccine clinics are held outdoors and may be canceled in rainy or stormy conditions. To learn more about pediatric vaccinations (ages 5-11), we invite you to visit the [facility] webpage. https://www.[facility].org/pages/6807-Byjrz-Oyonrahzwlb-Fcunagexqa-Ucqeu-Nsi stions.htmlTo learn more about the COVID-19 vaccine, we invite you to visit the CDC website for a list of frequently asked questions. https://www.cdc.gov/coronavirus/2019-ncov/vaccines/faq.html [facility] Patient Portal Access Instructions: Stay connected with your healthcare team and access your personal medical information anytime with the [facility] Patient Portal. If you would like a full copy of your medical records please contact the [facility] Medical Records Department Wednesday through Wednesday between 8a.m. and 4:30p.m. Please follow the directions below to access the portal: 1.Access the email account you provided upon registration to the hospital.2.Look for an invitation email from [facility].3.Open the email and access the invitation link: Accept Invitation to [facility]4.Fill in the required shah to create your account. Sign into [email or web address] with your username and password that you [...] you will allow to register on the [facility] Patient Portal for access to your information. You can also access the [facility] Patient Portal on the [employer] denis. Simply click on Health Records under [facility] and then click on the [employer] logo. HOW TO SAFELY DISPOSE OF PRESCRIPTION MEDICATIONS Please use one of the following methods to safely dispose of your unused medications. 1.Use a drug disposal kit: the drug disposal pouch allows you to safely discard your old and unuseddrugs. Ask your nurse to give you one when you are discharged.2.Visit a local take-back location: Many local pharmacies and police departments have programs that collect old and unwanted prescriptiondrugs. Call your local pharmacy or go to http://Vaultive.[employer]/1X6Hp2q to find one close to you.3.Make use of household items: Use cat litter or old coffee grounds to dispose medications if other options arenot available. Mix your drugs with these household products, seal them in an airtight container andthrow it into the garbage. Call [facility]: [phone] to be sure your drugs can be [...] drowsiness, such as benzodiazepines, also known as benzos,including diazepam and alprazolam, muscle relaxants or sleep aids. Never sell or share prescriptionopioids. This is illegal. Store opioids in a [...] aware that I should contact my doctor. Patient/Shuttle Final Inspector Signature: Date/Time: Relationship to Patient: Witness Name/Signature: Date/Time: [facility]12-02-2023 Note ORIGINAL EXAMINATION: CTA OF THE CHEST [...] Reason for Exam: elevated d dimer FINDINGS: Ctui-sw-biyifrpc degenerative changes are noted in the spine. [...] is the leading consideration. Interpreted by: Nii Munoz MD Preliminary Report By: Nii Munoz MD Electronically signed By Nii Munoz MD Dictated Date: 05/08/2023 12:41:42 PM Prelim Date: 05/08/2023 12:45:07 PM Sign Date: 05/08/2023 12:45:07 PM Ordering Provider: [facility]12-02-2023 Note ORIGINAL EXAMINATION: ONE XRAY VIEW OF [...] IMPRESSION: No acute finding. Interpreted by: Nii Munoz MD Preliminary Report By: Nii Munoz MD Electronically signed By Nii Munoz MD Dictated Date: 05/08/2023 11:10:42 AM Prelim Date: 05/08/2023 11:11:05 AM Sign Date: 05/08/2023 11:11:05 AM Ordering Provider: CHANTAL [facility] [place]12-02-2023 Note Sinus rhythm Electronic Signature: CHANTAL ZAPIEN MD 05/08/2023 09:34:[address] [place] [address] 11-30-2023 Note. MICRO - Microbiology PROCEDURE: Urine Culture [*1] SOURCE: Urine, Clean Catch BODY SITE: COLLECTED DATE/TIME: 05/05/2023 11:21 EST RECEIVED DATE/TIME: 05/05/2023 19:28 EST START DATE/TIME: 05/05/2023 19:28 EST FREE TEXT SOURCE: FINAL REPORTS Final Report [] Verified Date/Time/Personnel: 05/06/2023 14:03 EST 50,000 - 100,000 cfu/ml Mixed growth consistent with normal urogenital giles. Performing Locations *1: This test was performed at: [facility], [address] [place] [address], [phone] , [facility], [facility] [place]08-05-2022 SARS-CoV-2 (COVID-19) RNA BREANNA+probe Ql (Nph)Positive *ABN* (08/05/22 5:58 PM)AO Auto Urine [id number] Note ORIGINAL EXAMINATION: SOFT TISSUE ULTRASOUND 07/17/2022 [...] Date: 07/17/2022 6:24:30 PM Ordering Provider: LIZZETTE [facility]02-10-2023 Note ORIGINAL EXAMINATION: SOFT TISSUE ULTRASOUND 07/17/2022 [...] by: Radha Richardson MD Preliminary Report By: Rdaha Richardson MD Electronically signed By Radha Richardson MD Dictated Date: 07/17/2022 6:18:04 PM Prelim Date: 07/17/2022 6:24:30 PM Sign Date: 07/17/2022 6:24:30 PM Ordering Provider: LIZZETTE Stokes [facility] note Author Jim Jimenez [facility] Note Date/Time September 11, 2024 8:[address] [facility] Medical Records Department [address] [place] [address] Pre-Anesthesia Evaluation 09/11/24 0844 MR#: [id number] Acct: [id number] Name: BOB MCKENNA Rep #:[id number] : 1940 84 From: Jim Jimenez MD PCP: Dr. Lizzette Apple, DO Status:REG SD Y Race: C Location: [place] [address] ASA Classification* ASA Classification ASA Classification: 2 Assessment & Plan Anesthesia* Anesthesia Assessment Anesthesia Assessment: Discussed sedation and/or anesthesia options, risks, benefits, and alternatives with patient/parents/legal guardian/POA. Questions invited. The patient/parents/legal guardian/POA seems to understand and agrees to proceedwith anesthesia plan. Reviewed the physical assessment, medical history, allergy history and patient home medications list prior to surgery/procedure/anesthetic and documented any changes. Performed airway and anesthesia risk assessments. Anesthesia Type Anesthesia Type: MAC Anesthesia Focused Assessment* Airway Assessment Mouth opens: >3 cm Mallampati Score: II Focused Labs Anesthesia Preop lab: CBC WBC 5.7 K/mm3 (4.4-11.0) 09/04/24 13:24 09/04/24 RBC 4.24 M/mm3 (4.2-5.4) 09/04/24 13:24 09/04/24 Hgb 12.5 g/dL (12.0-15.0) 09/04/24 13:24 09/04/24 Hct 37.1 % (37-47) 09/04/24 13:24 09/04/24 Plt Count 287 K/mm3 (150-450) 09/04/24 13:24 09/04/24 CHEMISTRY Potassium 4.2 mmol/L (3.3-5.1) 09/04/24 13:24 09/04/24 Sodium 131 mmol/L (133-145) L 09/04/24 13:24 09/04/24 Magnesium 2.2 mg/dL (1.6-2.6) 04/03/24 05:15 04/03/24 Phosphorus 3.5 mg/dL (2.5-4.9) 04/03/24 05:15 04/03/24 BUN 8 mg/dL (4-19) 09/04/24 13:24 09/04/24 Creatinine 0.51 mg/dL (0.70-1.20) L 09/04/24 13:24 Glucose 125 mg/dL (70-99) H 09/04/24 13:24 09/04/24 TSH 3.100 uIU/mL (0.358-3.740) 04/02/24 02:27 03/08 12/28 COAG Pre-Assessment Diagnosis/Proposed Procedure Planned Operative Procedure(s): Caudal SHAY Anesthesia History Anesthesia History - healthcare administrative assistant: Anesthesia History - healthcare administrative assistant Hx Hospitalization No 03/22/24 11:26 Any Problems With Anesthesia Yes: 1988 WITH HYSTERECTOMY 03/22/24 11:26 VERY SLOW TO AWAKEN Cholinesterase deficiency No 03/22/24 11:26 You/Your Family Experience No 03/22/24 11:26 fever (hyperthermia) with Relationship Recent Exposure to Contagious No 06/12/24 08:30 Disease Does patient have nerve No 03/22/24 11:26 stimulator Patient instructed to have device shut off --Does patient have Pacemaker or ICD? When Was Last Pacemaker Check QUESTION #4 FULL TEXT: You/Your Family Experience fever (hyperthermia) with Anesthesia Last Oral Intake Last Oral intake: Last Oral Intake NPO since Meds taken in AM with sips of water? Meds patient instructed to take am of surgery PONV PONV - healthcare administrative assistant: PONV - healthcare administrative assistant Female HX of Motion Sickness HX of N/V After Surgery Non-Smoker Duration of Surgery greater than 60 minutes Number of Risk Factors PONV Score Height & Weight Height & Weight: Anesthesia: Height & Weight Height 5 ft 1 in 09/04/24 14:16 Respiratory Assessment Respiratory Assessment - healthcare administrative assistant: Respiratory Tract Infection Hx - healthcare administrative assistant Hx Respiratory Tract Infection No 03/22/24 11:26 STOP Sleep Apnea STOP Sleep Apnea - healthcare administrative assistant: STOP Sleep Apnea - healthcare administrative assistant Hx Hypertension Yes: CONTROLLED WITH MED 04/02/24 09:42 Hx Sleep Apnea No 06/12/24 10:20 CPAP BIPAP Do you snore loudly (louder than talking or can be heard Do you often feel tired/ fatigued/ sleepy during daytime? Has anyone observed you stop breathing during sleep? STOP Results QUESTION #5 FULL TEXT : Do you snore loudly (louder than talking or can be heard through closed doors)? 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 Specify any problems Hx of Preganancy in last 3 Months Nurse Filling Out Transfusion & Questions: Date: Time: Patient unable to answer at this time (ie. confused, unrespo /Reproduction History /Reproductive History - healthcare administrative assistant: /Reproductive Hx- healthcare administrative assistant Hx Now Gestational Age (in weeks): EDC: Hx Hx Para Hx Section SAB No 03/22/24 11:26 PFS Medical History Metabolic encephalopathy Adverse drug reaction Dehydration Hypokalemia Acute hyponatremia Retroperitoneal lymphadenopathy Abdominal pain Depression Back pain Constipation Wears hearing aid Wears glasses Cancer Thyroid disease Walker as ambulation aid High cholesterol Non-smoker Leg cramps History of echocardiogram History of stress test Cardiology follow-up encounter Cholinesterase deficiency Encounter for education Anemia CLL (chronic lymphocytic leukemia) Hypothyroidism Vertigo Varicose veins of legs Supraclavicular mass Supraclavicular lymphadenopathy Skin lesion of face Skin lesion of neck Stress incontinence Psoriasis Osteoporosis Mitral valve prolapse Low back pain with right-sided sciatica Hyperlipidemia High blood pressure Hematuria Home Medications ?Medication ?Instructions ?Recorded ?Last Taken ?Type ascorbic acid (vitamin C) 100 mg 100 mg PO DAILY 08/1410/20/23 History tablet calcium carbonate 600 mg PO BID 08/14/2210/19 History cholecalciferol (vitamin D3) 10 10 mcg PO DAILY 10/20/23 History mcg (400 unit) capsule lutein 20 mg capsule 20 mg PO DAILY 08/14/2210/05 History magnesium carbonate 1 cap PO DAILY 08/18/2210/05 History mecobalamin (vitamin B12) 1,000 1,000 mcg PO Q OTHER D AY 03/01/23 10/20/23 History mcg lozenges levothyroxine 88 mcg capsule 88 mcg PO DAILY 06/01/23 10/20/23 History Disability Placard #1 ea 09/07/23 Unknown Rx disability placard #1 ea 01/03/24 Unknown Rx losartan 50 mg tablet 50 mg PO QHS 01/03/24 History gabapentin 100 mg capsule 100 mg PO QDAY 04/28/24 Unkn own History ondansetron 4 mg disintegrating 4 mg PO Q8H PRN PRN Na usea #10 tabs 08/11/24 Unknown Rx tablet linaclotide 145 mcg capsule 145 mcg PO QAM #30 caps Unknown Rx (Linzess) Allergy/AdvReac Type Severity Reaction Status Date / Time No Known Allergies Allergy Verified 09/04/24 14:13 Family History Brother CAD (coronary artery disease) Cancer Hyperlipemia Mother Cancer Leukemia Sister Cancer Sarcoma Surgical History Hx of kyphoplasty S/P abdominal hysterectomy H/O umbilical hernia repair History of tonsillectomy S/P appendectomy Social History household members: none housing: house Smoking Status: Never smoker alcohol intake: never substance use type: does not use Review of Systems (Anesthesia) ROS Narrative System reviewed and no additional complaints, except as documented. 09/11/24 0845 <Electronically signed by Jim Jimenez MD > Date _ Jim Toth Signature: Date CC: ~ Signed [facility] Work Phone: Consult note Author Machel[facility] Note Date/Time September 11, 2024 9:[address] [facility] Medical Records Department [address] [place] [address] Anesthesia Postop Eval I 09/11/24945 MR#: [id number] Acct: [id number] Name: BOB MCKENNA Rep #:[id number] : 1940 84 From: Machelle Wang PCP: Dr. Lizzette Apple, DO Status:[facility] Y Race: C Location: [place] [address] Anesthesia: Postop Eval I Current Vital Signs Temperature: 97.3 F Pulse Rate: 69 Blood Pressure: 110/78 Respiratory Rate: 20 Pulse Ox: 100 Assessment Airway patent: Yes Spontaneous unlabored respirations: Yes nausea: No Vomiting: No Anesthesia Complication: No Fluid Hydration Crystalloid volume administer (ml): 10 Total IV fluid infused: 10 Progress Note Anesthesia document: Postop Eval 1 completed: Yes 09/11/24 0949 <Electronically signed by Machelle thomas> Date _ Machelle Toth Signature: Date CC: ~ Signed [facility] Work Phone: Consult note Author [facility] Note Date/Time September 11, 2024 10:[address] [facility] Medical Records Department [address] [place] [address] Anesthesia Postop Eval II 09/11/24 1012 MR#: [id number] Acct: [id number] Name: BOB MCKENNA Rep #:[id number] : 1940 84 From: Machelle Wang PCP: Dr. Lizzette Apple, DO Status:REG SDC Y Race: C Location: [place] [address] Anesthesia Postop Eval I Sum Postop Eval Completion status Anesthesia document: Postop Eval 1 completed: Yes Anesthesia Postop Eval I Summary Anesthesia Postop Eval I Summary: Anesthesia Postop Eval I: Assessment Summary Airway patent Yes 09/11/24 09:46 ANALYSIS EVALUATOR.CSIR Spontaneous unlabored Yes 09/11/24 09:46 ANALYSIS EVALUATOR.CSIR respirations Mental status nausea No 09/11/24 09:46 ANALYSIS EVALUATOR.CSIR Vomiting No 09/11/24 09:46 ANALYSIS EVALUATOR.CSIR Anesthesia Postop Eval I: Fluid Summary Crystalloid volume administer 10 09/11/24 09:46 ANALYSIS EVALUATOR.CSIR (ml) Colloids volume administered ( ml) Blood Product volume administered (ml) Total IV fluid infused 10 09/11/24 09:46 ANALYSIS EVALUATOR.CSIR Anesthesia Postop Eval I: Summary Notes Anesthesia Complication No 09/11/24 09:46 ANALYSIS EVALUATOR.CSIR Anesthesia Complication Comment: Post-operative progress note Anesthesia: Postop Eval II Evaluation Mental status: Awake Pain Level: 2 nausea: No Vomiting: No 09/11/24 1012 <Electronically signed by Machelle thomas> Date _ Machelle Toth Signature: Date CC: ~ Signed [facility] Work Phone: Consult note Author Jim Jimenez [facility] Note Date/Time January 08, 2025 9:[address] [facility] Medical Records Department [address] [place] [address] Pre-Anesthesia Evaluation 01/08/25911 MR#: [id number] Acct: [id number] Name: BOB MCKENNA Rep #:[id number] : 1940 84 From: Jim Jimenez MD PCP: Dr. Lizzette Apple, DO Status:REG SDC Y Race: C Location: [place] [address] ASA Classification* ASA Classification ASA Classification: 2 Assessment & Plan Anesthesia* Anesthesia Assessment Anesthesia Assessment: Discussed sedation and/or anesthesia options, risks, benefits, and alternatives with patient/parents/legal guardian/POA. Questions invited. The patient/parents/legal guardian/POA seems to understand and agrees to proceedwith anesthesia plan. Reviewed the physical assessment, medical history, allergy history and patient home medications list prior to surgery/procedure/anesthetic and documented any changes. Performed airway and anesthesia risk assessments. Anesthesia Type Anesthesia Type: MAC Anesthesia Focused Assessment* Airway Assessment Mouth opens: >3 cm Mallampati Score: II Labs Anesthesia Preop lab: CBC WBC 5.7 K/mm3 (4.4-11.0) 09/04/24 13:24 09/04/24 RBC 4.24 M/mm3 (4.2-5.4) 09/04/24 13:24 09/04/24 Hgb 12.5 g/dL (12.0-15.0) 09/04/24 13:24 09/04/24 Hct 37.1 % (37-47) 09/04/24 13:24 09/04/24 Plt Count 287 K/mm3 (150-450) 09/04/24 13:24 09/04/24 CHEMISTRY Potassium 4.2 mmol/L (3.3-5.1) 09/04/24 13:24 09/04/24 Sodium 131 mmol/L (133-145) L 09/04/24 13:24 09/04/24 Magnesium 2.2 mg/dL (1.6-2.6) 04/03/24 05:15 04/03/24 Phosphorus 3.5 mg/dL (2.5-4.9) 04/03/24 05:15 04/03/24 BUN 8 mg/dL (4-19) 09/04/24 13:24 09/04/24 Creatinine 0.51 mg/dL (0.70-1.20) L 09/04/24 13:24 Glucose 125 mg/dL (70-99) H 09/04/24 13:24 09/04/24 TSH 3.100 uIU/mL (0.358-3.740) 04/02/24 02:27 03/08 12/28 COAG Pre-Assessment Diagnosis/Proposed Procedure Planned Operative Procedure(s): (R) INTRA ARTICULAR STEROID INJECTION UNDER FLUOROSCOPY Anesthesia History Anesthesia History - healthcare administrative assistant: Anesthesia History - healthcare administrative assistant Hx Hospitalization Yes: dehydration 03-3101/01/25 09:35 Any Problems With Anesthesia No 01/01/25 09:35 Cholinesterase deficiency No 01/01/25 09:35 You/Your Family Experience No 01/01/25 09:35 fever (hyperthermia) with Relationship Recent Exposure to Contagious No 09/11/24 08:59 Disease Does patient have nerve No 01/01/25 09:35 stimulator Patient instructed to have device shut off --Does patient have Pacemaker or ICD? When Was Last Pacemaker Check QUESTION #4 FULL TEXT: You/Your Family Experience fever (hyperthermia) with Anesthesia Last Oral Intake Last Oral intake: Last Oral Intake NPO since Meds taken in AM with sips of water? Meds patient instructed to take am of surgery PONV PONV - healthcare administrative assistant: PONV - healthcare administrative assistant Female Yes 01/01/25 09:35 HX of Motion Sickness No 01/01/25 09:35 HX of N/V After Surgery No 01/01/25 09:35 Non-Smoker Yes 01/01/25 09:35 Duration of Surgery greater No 01/01/25 09:35 than 60 minutes Number of Risk Factors 2 01/01/25 09:35 PONV Score Moderate Risk 01/01/25 09:35 Height & Weight Height & Weight: Anesthesia: Height & Weight Height 5 ft 1 in 09/14/24 10:11 Respiratory Assessment Respiratory Assessment - healthcare administrative assistant: Respiratory Tract Infection Hx - healthcare administrative assistant Hx Respiratory Tract Infection No 01/01/25 09:35 STOP Sleep Apnea STOP Sleep Apnea - healthcare administrative assistant: STOP Sleep Apnea - healthcare administrative assistant Hx Hypertension Yes: on meds 01/01/25 09:35 Hx Sleep Apnea No 01/01/25 09:35 CPAP BIPAP Do you snore loudly (louder No 01/01/25 09:35 than talking or can be heard Do you often feel tired/ No 01/01/25 09:35 fatigued/ sleepy during daytime? Has anyone observed you stop No 01/01/25 09:35 breathing during sleep? STOP Results Negative 01/01/25 09:35 QUESTION #5 FULL TEXT : Do you snore loudly (louder than talking or can be heard through closed doors)? Tobacco Use History Tobacco Use History - healthcare administrative assistant: Tobacco Use History - healthcare administrative assistant Tobacco Use Smoking Status Never smoker 01/01/25 09:35 Hx Tobacco Use No 01/01/25 09:35 Years Smoking Packs Smoked per Day Smoking Cessation Date was within the last 15 years Hx Smoking Cessation Date Hx Smoking Cessation Counseling Hematologic Medial History Hematologic Hx - healthcare administrative assistant: Hematologic Medical Hx - fancy packer Hx of Blood Transfusion No 01/01/25 09:35 Hx of Transfusion in last 3 No 01/01/25 09:35 Months Date of Last Transfusion (if within last 3 months) Ever experience any problems No 01/01/25 09:35 with transfusion(s)? Specify any problems Hx of Preganancy in last 3 No 01/01/25 09:35 Months Nurse Filling Out Transfusion TOMASZ 01/01/25 09:35 & Questions: Date: 01/01/25 01/01/25 09:35 Time: 09:40 01/01/25 09:35 Patient unable to answer at this time (ie. confused, unrespo /Reproduction History /Reproductive History - healthcare administrative assistant: /Reproductive Hx- healthcare administrative assistant Hx Now No 01/01/25 09:35 Gestational Age (in weeks): EDC: Hx Hx Para Hx Section SAB No 01/01/25 09:35 Active Medications Active Medications: Current Medications Generic Name Dose Route Start Last Admin Trade Name Freq PRN Reason Stop Dose Admin Lactated Ringer's 1,000 mls @ 15 mls/hr 01/08/25 09:00 IV .Q48H TIM PFSH Medical History Hx: bad fall Metabolic encephalopathy Adverse drug reaction Dehydration Hypokalemia Acute hyponatremia Retroperitoneal lymphadenopathy Abdominal pain Depression Back pain Constipation Wears hearing aid Wears glasses Cancer Thyroid disease Walker as ambulation aid High cholesterol Non-smoker Leg cramps History of echocardiogram History of stress test Cardiology follow-up encounter Cholinesterase deficiency Encounter for education Anemia CLL (chronic lymphocytic leukemia) Hypothyroidism Vertigo Varicose veins of legs Supraclavicular mass Supraclavicular lymphadenopathy Stress incontinence Psoriasis Osteoporosis Mitral valve prolapse Low back pain with right-sided sciatica Hyperlipidemia High blood pressure Hematuria Home Medications ?Medication ?Instructions ?Recorded ?Last Taken ?Type ascorbic acid (vitamin C) 100 mg 100 mg PO DAILY 08/1410/20/23 History tablet calcium carbonate 600 mg PO BID 08/14/2210/19 History cholecalciferol (vitamin D3) 10 10 mcg PO DAILY 10/20/23 History mcg (400 unit) capsule lutein 20 mg capsule 20 mg PO DAILY 08/14/2210/05 History magnesium carbonate 1 cap PO DAILY 08/18/2210/05 History mecobalamin (vitamin B12) 1,000 1,000 mcg PO Q OTHER D AY 03/01/23 10/20/23 History mcg lozenges levothyroxine 88 mcg capsule 88 mcg PO DAILY 06/01/23 09/10/24 History Disability Placard #1 ea 09/07/23 Unknown Rx losartan 50 mg tablet 50 mg PO QHS 01/03/24 History gabapentin 100 mg capsule 100 mg PO QDAY 04/28/24 Unkn own History sertraline 25 mg tablet (Zoloft) 25 mg PO DAILY 09/10/24 History lactulose 10 gram/15 mL oral 15 ml PO QDAY 09/14/24 Un known History solution Allergy/AdvReac Type Severity Reaction Status Date / Time No Known Allergies Allergy Verified 01/08/25 09:12 Family History Brother CAD (coronary artery disease) Cancer Hyperlipemia Mother Cancer Leukemia Sister Cancer Sarcoma Surgical History Hx of kyphoplasty S/P abdominal hysterectomy H/O umbilical hernia repair History of tonsillectomy S/P appendectomy Social History household members: none housing: house Smoking Status: Never smoker alcohol intake: never substance use type: does not use Review of Systems (Anesthesia) ROS Narrative System reviewed and no additional complaints, except as documented. 01/08/25912 <Electronically signed by Jim Jimenez MD > Date _ Jim Jimenez MD Cosigner Signature: Date CC: ~ Signed [facility] Work Phone: Consult note Author [facility] Note Date/Time January 08, 2025 10: 06am [facility] Medical Records Department [address] [place] [address] Anesthesia Postop Eval I 01/08/25 1005 MR#: [id number] Acct: [id number] Name: BOB MCKENNA Rep #:[id number] : 1940 84 From: Neal shepherd CRNA PCP: Dr. Lizzette Apple, DO Status:REG SD Y Race: C Location: [place] [address] Anesthesia: Postop Eval I Current Vital Signs Temperature: 98.1 F Pulse Rate: 62 Blood Pressure: 136/56 Respiratory Rate: 16 Pulse Ox: 97 Oxygen Delivery Method: Room Air Assessment Airway patent: Yes Spontaneous unlabored respirations: Yes Mental status: Awake nausea: No Vomiting: No Anesthesia Complication: No Fluid Hydration Crystalloid volume administer (ml): 150 Total IV fluid infused: 150 Progress Note Anesthesia document: Postop Eval 1 completed: No 01/08/25 1006 <Electronically signed by Neal ledbetter CRNA> Date _ Neal Gonzalezigner Signature: Date CC: ~ Signed [facility] Work Phone: Evaluation + Plan note Future Appointments Appointment Date:05/12/2021 10:00:00 AM Scheduled Provider: Location:[facility] Appointment Type:BD Bone Density DEXA Axial Skeleton Appointment Date:10/29/2021 08:00:00 AM Scheduled Provider:LIZZETTE APPLE DO Location:[facility] Appointment Type:PC OV Future Scheduled Tests Radiology* BD Bone Density DEXA Axial Skeleton 05/12/21 [facility] Evaluation + Plan note Future Appointments Appointment Date:10/29/2021 08:00:00 AM Scheduled Provider:LIZZETTE APPLE DO Location:[facility] Appointment Type:PC OV [facility] Evaluation + Plan note Future Appointments Appointment Date:10/29/2021 08:00:00 AM Scheduled Provider:LIZZETTE APPLE DO Location:[facility] Appointment Type:PC OV Future Scheduled Tests Laboratory* COVID-19 Only (AO) 06/02/21 [facility] Evaluation + Plan note Future Appointments Appointment Date:05/06/2022 08:00:00 AM Scheduled Provider:LIZZETTE APPLE DO Location:[facility] Appointment Type: Wellness Medicare [facility] Evaluation + Plan note Future Appointments Appointment Date:03/10/2022 01:30:00 PM Scheduled Provider:LIZZETTE APPLE DO Location:[facility] Appointment Type:PC OV Follow Up Appointment Date:05/06/2022 08:00:00 AM Scheduled Provider:LIZZETTE APPLE DO Location:[facility] Appointment Type:PC Wellness Medicare [facility] Evaluation + Plan note Future Appointments Appointment Date:09/02/2022 09:00:00 AM Scheduled Provider:LIZZETTE APPLE DO Location:[facility] Appointment Type:PC OV Follow Up [facility] Evaluation + Plan note Future Appointments Appointment Date:08/28/2022 09:00:00 AM Scheduled Provider:LIZZETTE APPLE DO Location:[facility] Appointment Type:PC OV Follow Up Diagnostic Tests Pending * Vitamin B12 Level 07/07/22 Future Scheduled Tests Radiology* US Soft Tissue Mass 07/07/22 [facility] Evaluation + Plan note Future Appointments Appointment Date:08/28/2022 09:00:00 AM Scheduled Provider:LIZZETTE APPLE DO Location:[facility] Appointment Type:PC OV Follow Up [facility] Evaluation + Plan note Future Appointments Appointment Date:10/23/2022 09:30:00 AM Scheduled Provider:LIZZETTE APPLE DO Location:[facility] Appointment Type:PC OV [facility] Evaluation + Plan note Future Appointments Appointment Date:05/11/2023 10:30:00 AM Scheduled Provider:LIZZETTE APPLE DO Location:[facility] Appointment Type:PC Wellness Medicare [facility] Evaluation + Plan note Future Appointments Appointment Date:08/03/2023 11:00:00 AM Scheduled Provider:LIZZETTE APPLE DO Location:[facility] Appointment Type:PC OV Future Scheduled Tests Radiology* BD Bone Density DEXA Axial Skeleton 05/11/23 [facility] Evaluation + Plan note Future Appointments Appointment Date:12/02/2023 11:00:00 AM Scheduled Provider:LIZZETTE APPLE DO Location:[facility] Appointment Type:PC OV Future Scheduled Tests Laboratory* Thyroid Stimulating Hormone 08/03/23 Radiology* BD Bone Density DEXA Axial Skeleton 05/11/23 [facility] Evaluation + Plan note Future Appointments Appointment Date:12/14/2023 11:00:00 AM Scheduled Provider:LIZZETTE APPLE DO Location:[facility] Appointment Type:PC OV Future Scheduled Tests Laboratory* Thyroid Stimulating Hormone 08/03/23 Radiology* BD Bone Density DEXA Axial Skeleton 05/11/23 [facility] Evaluation + Plan note Future Appointments Appointment Date:09/22/2023 08:00:00 AM Scheduled Provider:LIZZETTE APPLE DO Location:[facility] Appointment Type:PC OV Appointment Date:09/24/2023 09:30:00 AM Scheduled Provider: Location:[facility] Appointment Type:CT Abdomen and Pelvis w/o Contrast Appointment Date:12/14/2023 11:00:00 AM Scheduled Provider:LIZZETTE APPLE DO Location:[facility] Appointment Type:PC OV Future Scheduled Tests Laboratory* Thyroid Stimulating Hormone 08/03/23 Radiology* BD Bone Density DEXA Axial Skeleton 05/11/23 * CT Abdomen and Pelvis w/o contrast 09/24/23 [facility] Evaluation + Plan note Future Appointments Appointment Date:11/03/2023 09:00:00 AM Scheduled Provider:LIZZETTE APPLE DO Location:[facility] Appointment Type:PC OV Appointment Date:12/14/2023 11:00:00 AM Scheduled Provider:LIZZETTE APPLE DO Location:[facility] Appointment Type:PC OV Future Scheduled Tests Laboratory* Basic Metabolic Panel 09/22/23 * Thyroid Stimulating Hormone 08/03/23 Radiology* BD Bone Density DEXA Axial Skeleton 05/11/23 * MRI Spine Lumbar w/ + w/o Contrast 09/22/23 [facility] evaluation + Plan note Future Appointments Appointment Date:10/05/2023 12:30:00 PM Scheduled Provider:LIZZETTE APPLE DO Location:[facility] Appointment Type:PC OV ED Follow Up Appointment Date:11/03/2023 09:00:00 AM Scheduled Provider:LIZZETTE APPLE DO Location:[facility] Appointment Type:PC OV Appointment Date:12/14/2023 11:00:00 AM Scheduled Provider:LIZZETTE APPLE DO Location:[facility] Appointment Type:PC OV Future Scheduled Tests Radiology* BD Bone Density DEXA Axial Skeleton 10/01/23 * MRI Spine Lumbar w/ + w/o Contrast 09/22/23 [facility] Evaluation + Plan note Future Appointments Appointment Date:12/14/2023 11:00:00 AM Scheduled Provider:LIZZETTE APPLE DO Location:[facility] Appointment Type:PC OV Future Scheduled Tests Radiology* BD Bone Density DEXA Axial Skeleton 10/01/23 * CT Abdomen and Pelvis w/ contrast 11/03/23 * MRI Spine Lumbar w/ + w/o Contrast 09/22/23 [facility] Evaluation + Plan note Future Appointments Appointment Date:12/14/2023 11:00:00 AM Scheduled Provider:LIZZETTE APPLE DO Location:[facility] Appointment Type:PC OV Future Scheduled Tests Radiology* BD Bone Density DEXA Axial Skeleton 10/01/23 * MRI Spine Lumbar w/ + w/o Contrast 09/22/23 [facility] Evaluation + Plan note Future Appointments Appointment Date:02/16/2024 09:30:00 AM Scheduled Provider:LIZZETTE APPLE DO Location:[facility] Appointment Type:PC OV Future Scheduled Tests Radiology* BD Bone Density DEXA Axial Skeleton 10/01/23 * MRI Spine Lumbar w/ + w/o Contrast 09/22/23 [facility] Evaluation + Plan note Future Appointments Appointment Date:05/25/2024 10:30:00 AM Scheduled Provider:LIZZETTE APPLE DO Location:[facility] Appointment Type:PC Wellness Medicare Future Scheduled Tests Radiology* BD Bone Density DEXA Axial Skeleton 10/01/23 * MRI Spine Lumbar w/ + w/o Contrast 09/22/23 [facility] Evaluation + Plan note Future Appointments Appointment Date:11/22/2024 01:00:00 PM Scheduled Provider:LIZZETTE APPLE DO Location:[facility] Appointment Type:PC OV Future Scheduled Tests Laboratory* Thyroid Stimulating Hormone 08/24/24 * Free T4 08/24/24 [facility] Evaluation note* Diagnosis Onset Date Resolution Status Lymphadenopathy chronic Lymphocytosis chronic [facility] Work Phone: Evaluation note* Diagnosis Onset Date Resolution Status Anemia chronic CLL (chronic lymphocytic leukemia) chronic Anemia chronic CLL (chronic lymphocytic leukemia) chronic Rash resolved Anemia chronic CLL (chronic lymphocytic leukemia) chronic Rash resolved [facility] Work Phone: Hospital course Narrative No data available for this section [facility] Hospital Discharge instructions No data available for this section [facility] Hospital Discharge instructions Additional Instructions Thank you for trusting us with your care today! Given diagnosed with a lumbar compression fracture. Please go to local pharmacy or drugstore and obtain Salonpas lidocaine patch and apply these as directed. Please take Tylenol (2 pills, 650 mg), ibuprofen (2 pills, 400 mg) every 6 hours as needed for pain and fever control. If the above regimen does not control your pain. Please take oxycodone as needed every 6 hours. Narcotic pain medicine such as oxycodone can cause constipation. You should begin a bowel regiment which should consist of fiber 1 cereal, MiraLAX, Colace, senna. Please use this regimen daily to achieve regular bowel movements. Please return to the emergency department if your symptoms change or worsen. Specifically if develop bowel or bladder incontinence, urinary tension, loss of movement or sensation in your legs, decree sensation around your private area. Please follow with your primary care physician as well as spinal surgeon for further outpatient evaluation and management.[facility] Work Phone: Hospital Discharge instructions Additional Instructions The exact cause of your nausea and upset stomach today is not clear however your workup was largely normal. No signs of acute pathology on your lab work or imaging today. You been prescribed Zofran. Given that you are now having watery stool/diarrhea I do recommend cutting back slightly on your lactulose (if you are taking it twice a day go to once a day and if you are taking it once a day go to every other day). Only decrease one of your stool regiment at a time so you do not elicit rebound constipation. Please follow-up with the GI specialist as we discussed. Eat a bland diet for the next few days until you are feeling better. Return if you have worsening symptoms or [facility] Work Phone: Progress note No data available for this section [facility] Reason for referral (narrative)No reason for referral information availableWMercy Health St[facility] Work Phone: Instructions Instruction Description Start Date CompletedPlease follow-up wi th Primary Care Physician or Fuel Cell Engineer for treatment or adjustment of medication regarding elevated blood pressure. Advance Directives No Advanced Directives Records Found Advance Directive Response Recorded Date/ Time Living Will No October 05, 2023 8:25am Power of Painter Interior Finish No October 04 8:25am Advance Directive Response Recorded Date/ Time Do you have a Healthcare Power of Painter Interior Finish? Yes January 01, 2025 9:35am Name of Medical Power of Painter Interior Finish daughter January 01, 2025 9:35am Assessments There may be information available, but it has not been provided by the sender. Review of System There may be information available, but it has not been provided by the sender. Family History No Family History Records Found Relationship Condition Age at Onset Recorded Date/T karen brother Coronary artery disease Unknown Malignant neoplasm Unknown Hyperlipidemia Unknown mother Malignant neoplasm Unknown Leukemia Unknown sister Malignant neoplasm Unknown Sarcoma Unknown Chief Complaint and Reason for Visit Chief Complaint NEW-ABNORMAL CT LAB Generalized enlarged lymph nodes Reason for Visit Lymphadenopathy Lymphocytosis Chief Complaint 4 WEEK, LABS 4 WKS - LABS 6 WKS - LABS LAB back pain Reason for Visit Anemia CLL (chronic lymphocytic leukemia) Anemia CLL (chronic lymphocytic leukemia) Rash Anemia CLL (chronic lymphocytic leukemia) Rash Chief Complaint Admit Date CERVICAL SPINE April 28, 2024 9:35am room 3 April 28, 2024 9:53am LAB May 29, 2024 12:45pm F/U LABS May 29, 2024 12:47pm NAUSEA August 11, 2024 8:44 am Reason for Visit Admit Date Cervical radiculopathy April 28 9:35am Degenerative disc disease, cervical Nove mber 2023 9:35am Anemia May 29, 2024 12:47pm CLL (chronic lymphocytic leukemia) Decem 2023 12:47pm Chief Complaint Admit Date F/U LABS May 29, 2024 12:47pm NAUSEA August 11, 2024 8:44 am ED follow up August 15, 2024 9:1 4am LAB September 04, 2024 1:1 5pm F/U - LABS September 04, 2024 1:1 8pm Reason for Visit Admit Date Anemia May 29, 2024 12:47pm CLL (chronic lymphocytic leukemia) Decem 2023 12:47pm Abdominal pain August 15, 2024 9:1 4am Bloating August 15, 2024 9:1 4am Constipation August 15, 2024 9:1 4am Dysphagia August 15, 2024 9:1 4am Anemia September 04, 2024 1:1 8pm CLL (chronic lymphocytic leukemia) September 04, 2024 1:18pm Chief Complaint Admit Date F/U LABS May 29, 2024 12:47pm NAUSEA August 11, 2024 8:44 am ED follow up August 15, 2024 9:1 4am LAB September 04, 2024 1:1 5pm F/U - LABS September 04, 2024 1:1 8pm 1 M FU September 14, 2024 9:3 1am STITZ September 18, 2024 9:5 2am Reason for Visit Admit Date Anemia May 29, 2024 12:47pm CLL (chronic lymphocytic leukemia) Decem 2023 12:47pm Abdominal pain August 15, 2024 9:1 4am Bloating August 15, 2024 9:1 4am Constipation August 15, 2024 9:1 4am Dysphagia August 15, 2024 9:1 4am Anemia September 04, 2024 1:1 8pm CLL (chronic lymphocytic leukemia) September 04, 2024 1:18pm Constipation September 14, 2024 9:3 1am Chief Complaint Admit Date NAUSEA August 11, 2024 8:44 am ED follow up August 15, 2024 9:1 4am LAB September 04, 2024 1:1 5pm F/U - LABS September 04, 2024 1:1 8pm 1 M FU September 14, 2024 9:3 1am STITZ September 18, 2024 9:5 2am DYSPHAGIA October 02, 2024 12: 53pm XRAY OF RIGHT SHOULDER November 06, 2024 11 :42am Reason for Visit Admit Date Abdominal pain August 15, 2024 9:1 4am Bloating August 15, 2024 9:1 4am Constipation August 15, 2024 9:1 4am Dysphagia August 15, 2024 9:1 4am Anemia September 04, 2024 1:1 8pm CLL (chronic lymphocytic leukemia) September 04, 2024 1:18pm Constipation September 14, 2024 9:3 1am Chief Complaint Admit Date 1 M FU September 14, 2024 9:3 1am STITZ September 18, 2024 9:5 2am DYSPHAGIA October 02, 2024 12: 53pm XRAY OF RIGHT SHOULDER November 06, 2024 11 :42am INTRA ARTICULAR STEROID INJECTION UNDER FLUOROSCOP January 08, 2025 8:39am Reason for Visit Admit Date Constipation September 14, 2024 9:3 1am Summary Purpose Additional Source Comments Care Team (unrecognized sect ion and content) Team Status: Active Member Role Status Dates Marly Mo CALIBRATION SPECIALIST, CALIBRATION SPECIALIST-C Family Provider Active Marly Mo CALIBRATION SPECIALIST, CALIBRATION SPECIALIST-C Primary Care Provider Active Team Status: Inactive Member Role Status Dates Marly Mo NP, CALIBRATION SPECIALIST-C Primary Care Provider, Referri ng Provider Active Dr. Hortencia Mclaughlin MD Attending Provider Active Team Status: Active Member Role Status Dates Marly Mo NP, CALIBRATION SPECIALIST-C Primary Care Provider Active Dr. Hortencia Mclaughlin MD Attending Provider, Referrin g Provider Active Team Status: Inactive Member Role Status Dates Marly Mo NP, CALIBRATION SPECIALIST-C Primary Care Provider Active Dr. Hortencia Mclaughlin MD Attending Provider Active Team Status: Active Member Role Status Dates Marly Mo CALIBRATION SPECIALIST, CALIBRATION SPECIALIST-C Family Provider Active Dr. Lizzette Apple DO Primary Care Provider Active Team Status: Inactive Member Role Status Dates Marly Mo CALIBRATION SPECIALIST, CALIBRATION SPECIALIST-C Primary Care Provider, Referri ng Provider Active Shanell Theodore CALIBRATION SPECIALIST, CALIBRATION SPECIALIST-C Attending Provider Active Team Status: Inactive Member Role Status Dates Dr. Hortencia Mclaughlin MD Attending Provider Active Dr. Lizzette Apple DO Primary Care Provider, Referri ng Provider Active Team Status: Active Member Role Status Dates Dr. Hortencia Mclaughlin MD Attending Provider, Referrin g Provider Active Dr. Lizzette Apple DO Primary Care Provider Active Team Status: Inactive Member Role Status Dates Dr. Lizzette Apple DO Primary Care Provider Active Dr. Lito Mendenhall DO Emergency Provider Active Team Status: Active Member Role Status Dates Dr. Lizzette Apple DO Primary Care Provider Active Team Status: Inactive Member Role Status Dates Dr. Lizzette Apple DO Primary Care Provider Active Start: April 28, 2024 End: April 28, 2024 Dr. Lizzette Apple DO Referring Provider Active Start: April 28, 2024 End: April 28, 2024 ROBERT Maxwell Attending Provider Active Star t: April 28, 2024 End: April 28, 2024 Team Status: Inactive Member Role Status Dates Dr. Lizzette Apple DO Primary Care Provider Active Start: April 28, 2024 End: April 28, 2024 Dr. Kamar Hurt MD Attending Provider Active S tart: April 28, 2024 End: April 28, 2024 Team Status: Active Member Role Status Dates Dr. Hortencia Mclaughlin MD Attending Provider Active Start: May 29, 2024 Dr. Hortencia Mclaughlin MD Referring Provider Active Start: May 29, 2024 Dr. Lizzette Apple DO Primary Care Provider Active Start: May 29, 2024 Team Status: Inactive Member Role Status Dates Dr. Lizzette Apple DO Primary Care Provider Active Start: May 29, 2024 End: May 29, 2024 Dr. Lizzette Apple DO Referring Provider Active Start: May 29, 2024 End: May 29, 2024 Shanell Theodore CALIBRATION SPECIALIST, CALIBRATION SPECIALIST-C Attending Provider Active Start: May 29, 2024 End: May 29, 2024 Team Status: Inactive Member Role Status Dates Dr. Lizzette Apple DO Primary Care Provider Active Start: June 12, 2024 End: June 12, 2024 Dr. Brien Ocampo MD Attending Provider Active Start: June 12, 2024 End: June 12, 2024 Dr. Brien Ocampo MD Referring Provider Active Start: June 12, 2024 End: June 12, 2024 Team Status: Inactive Member Role Status Dates Dr. Lizzette Apple DO Primary Care Provider Active Start: August 11, 2024 End: August 11, 2024 Dr. Flower Arndt DO Emergency Provider Active Start: August 11, 2024 End: August 11, 2024 Team Status: Inactive Member Role Status Dates Dr. Lizzette Apple DO Primary Care Provider Active Start: August 11, 2024 End: August 11, 2024 Dr. Flower Arndt DO Attending Provider Active Start: August 11, 2024 End: August 11, 2024 Dr. Flower Arndt DO Emergency Provider Active Start: August 11, 2024 End: August 11, 2024 Team Status: Inactive Member Role Status Dates Dr. Lizzette Apple DO Primary Care Provider Active Start: August 15, 2024 End: August 15, 2024 Dr. Lizzette Apple DO Referring Provider Active Start: August 15, 2024 End: August 15, 2024 Clarissa Aranda NP-C Attending Provider Active Start: August 15, 2024 End: August 15, 2024 Team Status: Active Member Role Status Dates Dr. Hortencia Mclaughlin MD Attending Provider Active Start: September 04, 2024 Dr. Hortencia Mclaughlin MD Referring Provider Active Start: September 04, 2024 Dr. Lizzette Apple DO Primary Care Provider Active Start: September 04, 2024 Team Status: Inactive Member Role Status Dates Dr. Lizzette Apple DO Primary Care Provider Active Start: September 04, 2024 End: September 04, 2024 Dr. Lizzette Apple DO Referring Provider Active Start: September 04, 2024 End: September 04, 2024 Shanell Theodore NP, NP-C Attending Provider Active Start: September 04, 2024 End: September 04, 2024 Team Status: Inactive Member Role Status Dates Dr. Lizzette Apple DO Primary Care Provider Active Start: September 11, 2024 End: September 11, 2024 Dr. Brien Ocampo MD Attending Provider Active Start: September 11, 2024 End: September 11, 2024 Dr. Brien Ocampo MD Referring Provider Active Start: September 11, 2024 End: September 11, 2024 Team Status: Inactive Member Role Status Dates Dr. Lizzette Apple DO Primary Care Provider Active Start: September 14, 2024 End: September 14, 2024 Dr. Lizzette Apple DO Referring Provider Active Start: September 14, 2024 End: September 14, 2024 Clarissa Aranda CALIBRATION SPECIALIST-C Attending Provider Active Start: September 14, 2024 End: September 14, 2024 Team Status: Inactive Member Role Status Dates Dr. Lizzette Apple DO Primary Care Provider Active Start: September 18, 2024 End: September 18, 2024 Clarissa Aranda , CALIBRATION SPECIALIST-C Attending Provider Active Start: September 18, 2024 End: September 18, 2024 Clarissa Aranda , CALIBRATION SPECIALIST-C Referring Provider Active Start: September 18, 2024 End: September 18, 2024 Team Status: Active Member Role Status Dates Dr. Lizzette Apple DO Primary Care Provider Active Start: September 20, 2024 Clarissa Aranda , CALIBRATION SPECIALIST-C Attending Provider Active Start: September 20, 2024 Clarissa Aranda , CALIBRATION SPECIALIST-C Referring Provider Active Start: September 20, 2024 Team Status: Inactive Member Role Status Dates Dr. Lizzette Apple DO Primary Care Provider Active Start: September 20, 2024 End: September 20, 2024 Clarissa Aranda , CALIBRATION SPECIALIST-C Attending Provider Active Start: September 20, 2024 End: September 20, 2024 Clarissa Aranda , CALIBRATION SPECIALIST-C Referring Provider Active Start: September 20, 2024 End: September 20, 2024 Team Status: Inactive Member Role Status Dates Dr. Lizzette Apple DO Primary Care Provider Active Start: October 02, 2024 End: October 02, 2024 Clarissa Aranda , CALIBRATION SPECIALIST-C Attending Provider Active Start: October 02, 2024 End: October 02, 2024 Clarissa Aranda , CALIBRATION SPECIALIST-C Referring Provider Active Start: October 02, 2024 End: October 02, 2024 Team Status: Inactive Member Role Status Dates Dr. Lizzette Apple DO Primary Care Provider Active Start: November 06, 2024 End: November 06, 2024 Dr. Brien Ocampo MD Attending Provider Active Start: November 06, 2024 End: November 06, 2024 Dr. Brien Ocampo MD Referring Provider Active Start: November 06, 2024 End: November 06, 2024 Team Status: Active Member Role/Relationship Status Dates Dr. Lizzette Apple DO Primary Care Provider Active Team Status: Inactive Member Role/Relationship Status Dates Dr. Lizzette Apple DO Primary Care Provider Active Start: September 11, 2024 End: September 11, 2024 Dr. Brien Ocampo MD Attending Provider Active Start: September 11, 2024 End: September 11, 2024 Dr. Brien Ocampo MD Referring Provider Active Start: September 11, 2024 End: September 11, 2024 Team Status: Inactive Member Role/Relationship Status Dates Dr. Lizzette Apple DO Primary Care Provider Active Start: September 14, 2024 End: September 14, 2024 Dr. Lizzette Apple DO Referring Provider Active Start: September 14, 2024 End: September 14, 2024 Clarissa Aranda CALIBRATION SPECIALIST-C Attending Provider Active Start: September 14, 2024 End: September 14, 2024 Team Status: Inactive Member Role/Relationship Status Dates Dr. Lizzette Apple DO Primary Care Provider Active Start: September 18, 2024 End: September 18, 2024 Clarissa Aranda CALIBRATION SPECIALIST-C Attending Provider Active Start: September 18, 2024 End: September 18, 2024 Clarissa Aranda CALIBRATION SPECIALIST-C Referring Provider Active Start: September 18, 2024 End: September 18, 2024 Team Status: Inactive Member Role/Relationship Status Dates Dr. Lizzette Apple DO Primary Care Provider Active Start: September 20, 2024 End: September 20, 2024 Clarissa Aranda CALIBRATION SPECIALIST-C Attending Provider Active Start: September 20, 2024 End: September 20, 2024 Clarissa Aranda CALIBRATION SPECIALIST-C Referring Provider Active Start: September 20, 2024 End: September 20, 2024 Team Status: Inactive Member Role/Relationship Status Dates Dr. Lizzette Apple DO Primary Care Provider Active Start: October 02, 2024 End: October 02, 2024 QUINCY Galdamez Attending Provider Active Start: October 02, 2024 End: October 02, 2024 QUINCY Galdamez Referring Provider Active Start: October 02, 2024 End: October 02, 2024 Team Status: Inactive Member Role/Relationship Status Dates Dr. Lzizette Apple DO Primary Care Provider Active Start: November 06, 2024 End: November 06, 2024 Dr. Brien Ocampo MD Attending Provider Active Start: November 06, 2024 End: November 06, 2024 Dr. Brien Ocampo MD Referring Provider Active Start: November 06, 2024 End: November 06, 2024 Team Status: Inactive Member Role/Relationship Status Dates Dr. Lizzette Apple DO Primary Care Provider Active Start: January 08, 2025 End: January 08, 2025 Dr. Brien Ocampo MD Attending Provider Active Start: January 08, 2025 End: January 08, 2025 Dr. Brien Ocampo MD Referring Provider Active Start: January 08, 2025 End: January 08, 2025 Care Team (unrecognized sect ion and content) Personnel Name: LIZZETTE APPLE DO Address: Address: [address] [place] [address] Name: Santiago Carballo PT Care Team Personnel Name: ANTONINA LISA MD Member Role: Pain Management Address: Address: [address] [place] [address] Name: Santiago Carballo PT Position: P3 Scheduling - Door To Door Selling Agent Advanced Member Role: Other Name: LIZZETTE APPLE DO Position: P4 Physician - Primary Care Med Service: Active Provider Member Role: Primary Care Physician Address: Address: [address] [place] [address] Care Team Related Persons Name: CHELSI HEARN Care Team Personnel Name: ANTONINA LISA MD Member Role: Pain Management Address: Address: [address] [place] [address] Name: Santiago Carballo PT Position: P3 Scheduling - Door To Door Selling Agent Advanced Member Role: Other Name: SERAFIN AHUMADA MD Member Role: It Help Desk Analyst Address: Address: [facility] [address] Name: OLU GEORGE Member Role: Dentist Name: LIZZETTE APPLE DO Position: P4 Physician - Primary Care Member Role: Primary Care Physician Address: Address: [address] [place] [address] Name: VINCENT CASTRO Member Role: Security Vehicle Patrol Officer Care Team Related Persons Name: CHELSI HEARN Care Team Personnel Name: ANTONINA LISA MD Member Role: Pain Management Address: Address: [address] [place] [address] Name: Santiago Carballo Clerk Joan PT Position: P3 Scheduling - Door To Door Selling Agent Advanced Member Role: Other Name: SERAFIN AHUMADA MD Member Role: It Help Desk Analyst Address: Address: [facility] [address] Name: OLU GEORGE Member Role: Dentist Name: LIZZETTE APPLE DO Position: P4 Physician - Primary Care Member Role: Primary Care Physician Address: Address: [address] [place] [address] Name: VINCENT CASTRO Member Role: Security Vehicle Patrol Officer Care Team Related Persons Name: CHELSI HEARN Care Team Personnel Name: ANTONINA LISA MD Member Role: Pain Management Address: Address: [address] [place] [address] Name: Santiago Carballo Clerk Joan PT Position: P3 Scheduling - Door To Door Selling Agent Advanced Member Role: Other Name: SERAFIN AHUMADA MD Member Role: It Help Desk Analyst Address: Address: [facility] [address] [place] [address]- Name: OLU GEORGE Member Role: Dentist Name: LIZZETTE APPLE DO Position: P4 Physician - Primary Care Member Role: Primary Care Physician Address: Address: [address] [place] [address] Name: VINCENT CASTRO Member Role: Security Vehicle Patrol Officer Care Team Related Persons Name: CHELSI HEARN Care Team Personnel Name: BASALI MD, AYMAN H Member Role: Pain Management Address: Address: [address] [place] [address] Name: Santiago Carballo Clerk Joan PT Position: P3 Scheduling - Door To Door Selling Agent Advanced Member Role: Other Name: SERAFIN AHUMADA MD Member Role: It Help Desk Analyst Address: Address: [facility] [address] Name: OLU GEORGE Member Role: Dentist Name: LIZZETTE APPLE DO Position: P4 Physician - Primary Care Member Role: Primary Care Physician Address: Address: [address] [place] [address] Name: VINCENT CASTRO Member Role: Security Vehicle Patrol Officer Care Team Related Persons Name: CHELSI HEARN Care Team Personnel Name: ANTONINA LISA MD Member Role: Pain Management Address: Address: [address] [place] [address] Name: Santiago Carballo Clerpatrick Franco PT Position: P3 Scheduling - Door To Door Selling Agent Advanced Member Role: Other Name: SERAFIN AHUMADA MD Member Role: It Help Desk Analyst Address: Address: [facility] [address] Name: OLU GEORGE Member Role: Dentist Name: LIZZETTE APPLE DO Position: P4 Physician - Primary Care Member Role: Primary Care Physician Address: Address: [address] [place] [address] Name: VINCENT CASTRO Member Role: Security Vehicle Patrol Officer Care Team Related Persons Name: CHELSI HEARN Goals (unrecognized section and content) Goals may be documented in a n alternate section INFORMATION SOURCE (unrecogn ized section and content) DATE CREATED AUTHOR 12/22/2023 [facility] ([place] DATE CREATED AUTHOR AUTHOR'S ORGANIZ ATION 08/28/2024 [facility] DATE CREATED AUTHOR AUTHOR'S ORGANIZ ATION 11/18/2024 [facility] DATE CREATED AUTHOR AUTHOR'S ORGANIZ ATION 01/14/2025 [facility] Reason for Visit (unrecogniz ed section and content) Reason Onset Date Comments Vomiting 04/01/2024 Reason Onset Date Comments Abdominal Pain 08/20/2024 Reason Onset Date Comments Other 08/27/2024 FOR RECORDS PERTAINING TO PATIENTS WHO ARE [...] BE BASED ON THE PRIMARY CLINICAL RECORDS. [facility] [email or web address] [facility]. provides no warranty or guarantee of the accuracy or completeness of information in this document.
[2025-03-23 16:44] VITALS: BMI 24.6
[2025-03-23 16:47] LABS: Hematocrit 37.4 % (37-47); Hemoglobin 12.6 g/dL (12.0-15.0); Immature Granulocytes Count 0.080 X10^3/uL (0.0-0.0); Mean Corp Hgb Conc 33.7 g/dL (32-36); Mean Corpuscular Volume 86.6 fL (81-99); Mean Platelet Vol. 9.6 fl (6.2-12.0); NRBC Flagged by Analyzer 0 % (0-5); Platelet Count 230 K/mm3 (150-450); RBC Distribution Width CV 12.4 % (11.6-14.6); RBC Distribution Width SD 39.4 fl (35.1-43.9); Red Blood Count 4.32 M/mm3 (4.2-5.4); White Blood Count 6.9 K/mm3 (4.4-11.0)
[2025-03-23 17:19] LABS: AST(SGOT) 24 U/L (<=31); Alanine Aminotransfer ALT/SGPT 14 U/L (<=34); Albumin, Serum 4.3 g/dL (3.4-4.8); Alkaline Phosphatase 69 U/L (35-104); Anion Gap 10 (5-15); BUN 14 mg/dL (4-19); BUN/Creat Ratio 24.9 RATIO (10-20); Bilirubin, Direct 0.15 mg/dL (0.00-0.30); Calcium,Total 9.3 mg/dL (7.6-11.0); Carbon Dioxide 24.8 mmol/L (21.0-32.0); Chloride 95 mmol/L (98-108); Estimated Creatinine Clearance 41.72 ml/min (50-250); Globulin 2.2 g/dL (2.2-4.2); Glucose 114 mg/dL (70-99); Potassium 4.3 mmol/L (3.3-5.1)
[2025-03-23 17:57] VITALS: BP 172/80; PULSE 85; RESP 21
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
[2025-03-23 19:12] VITALS: BP 157/86; PULSE 76; RESP 14; TEMP 36.6; O2SAT 96
== END 2025-03-23 19:14 | disposition home or self-care (01) ==
PROVIDERS: Emergency Provider Emergency Medicine; PCP Family Medicine; Visit Provider Emergency Medicine
DX: S20.213A Contusion of bilateral front wall of thorax, initial encounter (principal); C91.10 Chronic lymphocytic leukemia of B-cell type not having achieved remission; R59.1 Generalized enlarged lymph nodes; I10 Essential (primary) hypertension; E78.00 Pure hypercholesterolemia, unspecified; E03.9 Hypothyroidism, unspecified; R50.9 Fever, unspecified; V43.52XA Car driver injured in collision with other type car in traffic accident, initial encounter; W22.10XA Striking against or struck by unspecified automobile airbag, initial encounter; Y92.410 Unspecified street and highway as the place of occurrence of the external cause; Z79.899 Other long term (current) drug therapy; F32.A Depression, unspecified; Z90.710 Acquired absence of both cervix and uterus; Z90.49 Acquired absence of other specified parts of digestive tract
CPT/HCPCS: 71260; 80048; 80076; 85025; 93005; 96374; 96375; 96376; 99285; Q9967; A4216; J2405

== ENCOUNTER → 2025-05-25 | Outpatient (CLI) | payer MEDICARE, SELFPAY ==
[2025-05-25 09:04] LABS: Hematocrit 38.4 % (37-47); Hemoglobin 12.7 g/dL (12.0-15.0); Mean Corp Hgb Conc 33.1 g/dL (32-36); Mean Corpuscular Volume 88.3 fL (81-99); Mean Platelet Vol. 9.6 fl (6.2-12.0); Platelet Count 321 K/mm3 (150-450); RBC Distribution Width CV 13.2 % (11.6-14.6); RBC Distribution Width SD 42.7 fl (35.1-43.9); Red Blood Count 4.35 M/mm3 (4.2-5.4); White Blood Count 8.6 K/mm3 (4.4-11.0)
[2025-05-25 09:49] LABS: AST(SGOT) 16 U/L (<=31); Alanine Aminotransfer ALT/SGPT 8 U/L (<=34); Albumin, Serum 4.1 g/dL (3.4-4.8); Alkaline Phosphatase 67 U/L (35-104); Anion Gap 9 (5-15); BUN 12 mg/dL (4-19); BUN/Creat Ratio 18.0 RATIO (10-20); Calcium,Total 9.3 mg/dL (7.6-11.0); Carbon Dioxide 28.2 mmol/L (21.0-32.0); Chloride 99 mmol/L (98-108); Cholesterol 213 mg/dL (<=200); Globulin 2.6 g/dL (2.2-4.2); Glucose 97 mg/dL (70-99); Low Density Lipoprotein Calc. 138 mg/dL; Potassium 4.3 mmol/L (3.3-5.1); Triglycerides 63 mg/dL; Very Low Density Lipoprotein 13 mg/dL (5-40); Vitamin D,25 Hydroxy 42.9 ng/mL (30-100); cholesterol:hdl ratio screen 3.32
== END | disposition home or self-care (01) ==
LOC: LAB 07:48
PROVIDERS: PCP Family Medicine; Referring Provider Family Medicine; Visit Provider Family Medicine
DX: Z00.00 Encounter for general adult medical examination without abnormal findings (principal); Z13.1 Encounter for screening for diabetes mellitus; C91.10 Chronic lymphocytic leukemia of B-cell type not having achieved remission; E03.9 Hypothyroidism, unspecified; E55.9 Vitamin D deficiency, unspecified; E78.5 Hyperlipidemia, unspecified; I10 Essential (primary) hypertension
CPT/HCPCS: 36415; 80053; 80061; 82306; 84439; 84443; 85027

== ENCOUNTER 2025-05-29 13:16 | Emergency (ER) | payer MEDICARE, SELFPAY ==
[2025-05-29 13:18] VITALS: BP 167/111; PULSE 91; RESP 18; TEMP 35.9; O2SAT 98; BMI 22.9
[2025-05-29 14:33] VITALS: BP 140/59; PULSE 72; RESP 16; TEMP 36.9; O2SAT 100
--- NOTE | 2025-05-29 15:02 | EX.ED.DYSGE1 ---
HPI History of Present Illness Chief Complaint: Edema Informant: patient and family Narrative Narrative: 85-year-old female with history of CLL follows locally with Dr. Castro presenting with months of nasal congestion. Patient states that she has seen ENT locally with Dr. Barragan. Patient has developed prominent lymph nodes in her neck and a hoarse voice. She was seeing ENT and has had a couple of scopes in the office. It was noted that she had prominent left tissue in her nose. She followed up with oncology stated that her last white count was 12,000. Patient states the nasal congestion got worse when she got an upper respiratory infection and she took some antibiotics but she does not know the name of them. She states that that still did not clear her nasal congestion. She has tried Afrin but is using that very regularly but states now is not working. She also tried Flonase but that did not help. She had tried some sinus rinses. She states that when she lays down at night she cannot breathe through her nose and she has to breathe through her mouth which makes for dry mouth and not a restful sleep. She called her doctor's office today and was advised to come to emergency. Patient's voice has not changed. [facility] Medical History Hx: bad fall Metabolic encephalopathy Adverse drug reaction Dehydration Hypokalemia Acute hyponatremia Retroperitoneal lymphadenopathy Abdominal pain Depression Back pain Constipation Wears hearing aid Wears glasses Cancer Thyroid disease Walker as ambulation aid High cholesterol Non-smoker Leg cramps History of echocardiogram History of stress test Cardiology follow-up encounter Cholinesterase deficiency Encounter for education Anemia CLL (chronic lymphocytic leukemia) Hypothyroidism Vertigo Varicose veins of legs Supraclavicular mass Supraclavicular lymphadenopathy Stress incontinence Psoriasis Osteoporosis Mitral valve prolapse Low back pain with right-sided sciatica Hyperlipidemia High blood pressure Hematuria Home Medications ?Medication ?Instructions ?Recorded ?Last Taken ?Type ascorbic acid (vitamin C) 100 mg 100 mg PO DAILY 08/14/22 10/20/23 History tablet calcium carbonate 600 mg PO BID 08/14/22 10/20/23 History cholecalciferol (vitamin D3) 10 10 mcg PO DAILY 08/14/22 10/20/23 History mcg (400 unit) capsule lutein 20 mg capsule 20 mg PO DAILY 08/14/22 10/20/23 History magnesium carbonate 1 cap PO DAILY 08/18/22 10/20/23 History mecobalamin (vitamin B12) 1,000 1,000 mcg PO Q OTHER DAY 03/01/23 10/20/23 History mcg lozenges levothyroxine 88 mcg capsule 88 mcg PO DAILY 06/01/23 09/10/24 History Disability Placard #1 ea 09/07/23 Unknown Rx losartan 50 mg tablet 50 mg PO QHS 01/03/24 09/10/24 History sertraline 25 mg tablet (Zoloft) 25 mg PO DAILY 09/11/24 09/10/24 History buspirone 5 mg tablet 5 mg PO BID 05/14/25 Unknown History gabapentin 100 mg capsule 200 mg PO QDAY 05/14/25 Unknown History budesonide 32 mcg/actuation nasal 2 spray intranasal BID #8.43 mL 05/29/25 Unknown Rx spray Allergy/AdvReac Type Severity Reaction Status Date / Time No Known Allergies Allergy Verified 05/29/25 13:18 Family History Brother CAD (coronary artery disease) Cancer Hyperlipemia Mother Cancer Leukemia Sister Cancer Sarcoma Surgical History Hx of kyphoplasty S/P abdominal hysterectomy H/O umbilical hernia repair History of tonsillectomy S/P appendectomy Social History household members: none housing: house Smoking Status: Never smoker alcohol intake: never substance use type: does not use ROS ROS ED Constitutional Constitutional ED: Denies chills or weight loss Eyes Eyes: Denies change in vision or diplopia ENT ENT ED: Reports rhinorrhea and other Details: Nasal congestion hoarse voice enlarged lymph nodes in neck ; Denies ear pain or sore throat Cardiovascular Cardiovascular: Denies chest pain, orthopnea, palpitations or racing heartbeat Respiratory/Chest Respiratory/Chest: Denies cough, dyspnea or orthopnea Gastrointestinal Gastrointestinal: Denies abdominal pain, diarrhea, nausea or vomiting Genitourinary Genitourinary ED: Denies dysuria, hematuria or urinary frequency Musculoskeletal Musculoskeletal: Denies arthralgias or myalgias Integumentary Denies abscess or rash Neurologic Neurologic: Denies headache(s) or weakness Psychiatric Psychiatric: Denies anxiety, depression, suicidal ideation or suicidal thoughts Endocrine Endocrinology: Denies polydipsia, polyphagia or polyuria Allergic/Immunologic Allergic/Immunologic ED: Denies mouth swelling, tongue swelling or urticaria EXAM Physical Exam Const Vital Signs: 05/29/25 13:18 05/29/25 13:42 05/29/25 14:33 Temperature 96.7 F L 98.4 F Temperature Source Temporal Pulse Rate 91 72 Respiratory Rate 18 16 Respiratory Pattern Normal Blood Pressure 167/111 H 140/59 H Blood Pressure Mean 129 86 Pulse Ox 98 100 Oxygen Delivery Method Room Air Positive well nourished and well developed General Appearance ED: well developed and NAD HEENT Reports normocephalic, head/scalp atraumatic and moist mucous membranes HEENT Narrative: There is some clear rhinorrhea from the right nares. Appears to be turbinate edema. Eyes PERRL and EOMs intact bilaterally Neck supple and no JVD Neck Narrative: Palpable nontender prominent lymph nodes in neck Resp normal respiratory effort and clear to auscultation bilaterally Cardio regular rate, regular rhythm and no murmurs GI normal to inspection, nondistended, normoactive bowel sounds and non-tender Palpation: soft Back/Spine no CVA tenderness and normal ROM Extremity normal to inspection General Extremety ED: Negative for edema General Extremity: Negative for edema Neuro oriented x3 and CN's II-XII intact bilaterally Sensorium / Orientation: alert Motor Exam: strength 5/5 throughout Psych mental status grossly normal Mood & Affect: Negative for depressed or tearful Skin no rashes or lesions noted and no wounds MDM MDM MDM Narrative Medical decision making narrative: Differential diagnosis includes lymphoid disease from CLL nasal polyps sinusitis nasal allergies I do not see an emergent condition here today. Has been months his symptoms with no change. I would recommend a nasal steroid and a trial of saline sprays. I would recommend following up with To see if there is any potential treatment. History & Record Review Discussion w/independent historian: Patient Management Discussion w/another healthcare provider: Process Control Supervisor (Dr. Marks) Discharge Plan Triage Chief Complaint: Edema ED Provider: Justin Chan Dx/Rx/DC Orders Clinical Impression: CLL (chronic lymphocytic leukemia), Chronic nasal congestion Prescriptions: New budesonide 32 mcg/actuation spray,non-aerosol 2 spray intranasal BID Qty: 8.43 0RF Rx Instructions: administer into each nostril No Action ascorbic acid (vitamin C) 100 mg tablet 100 mg PO DAILY calcium carbonate 600 mg calcium (1,500 mg) tablet 600 mg PO BID cholecalciferol (vitamin D3) 10 mcg (400 unit) capsule 10 mcg PO DAILY lutein 20 mg capsule 20 mg PO DAILY Rx Instructions: give with meal/snack magnesium carbonate 1 cap PO DAILY levothyroxine 88 mcg capsule 88 mcg PO DAILY losartan 50 mg tablet 50 mg PO QHS mecobalamin (vitamin B12) 1,000 mcg lozenge 1,000 mcg PO Q OTHER DAY Rx Instructions: allow to dissolve in mouth OR may chew lightly before swallowing (DME) Disability Placard See Rx Instructions .Route .MEDSUPPLY Qty: 1 0RF Rx Instructions: As directed gabapentin 100 mg capsule 200 mg PO QDAY buspirone 5 mg tablet 5 mg PO BID sertraline [Zoloft] 25 mg tablet 25 mg PO DAILY Primary Care Provider: Lisette Apple Referrals: Mario Barragan MD [Med Staff - Active Staff, Ear Nose Throat (ENT)] - As soon as possible Lisette Apple, DO [Primary Care Provider, Medical] Activity Restrictions/Additional Instructions: He may try some saline nasal sprays as a way to help decongest the nose The nasal steroids do not generally take effect immediately and are best used chronically. I would recommend discussing further with your ENT (Dr. Barragan) and your oncologist. Print Language: Croatian Disposition Disposition: Home, Self Care Discharge Date/Time: 05/29/25 14:39
== END 2025-05-29 14:39 | disposition home or self-care (01) ==
PROVIDERS: Emergency Provider Emergency Medicine; PCP Family Medicine; Visit Provider Emergency Medicine
DX: R09.81 Nasal congestion (principal); C91.10 Chronic lymphocytic leukemia of B-cell type not having achieved remission; I10 Essential (primary) hypertension; Z79.899 Other long term (current) drug therapy
CPT/HCPCS: 99282